=== PATIENT | female | born 1935 | race Caucasian/White ===

== ENCOUNTER 2020-05-29 16:41 | Emergency (ER) | payer MEDICARE, OTHER, SELFPAY ==
[2020-05-29] VITALS (9 sets, daily range): BP systolic 122–235; BP diastolic 53–100; PULSE 54–67; RESP 16; TEMP 36.6–36.8; O2SAT 96–98
--- NOTE | 2020-05-29 18:27 | ED_ITS ---
HPI - General Adult General Chief complaint: General Medical Stated complaint: high bp Time Seen by Provider: 05/29/20 18:27 Source: patient Mode of arrival: ambulatory Limitations: no limitations History of Present Illness HPI narrative: patient comes to emergency room complaining of high blood pressure. Patient states she does not have any symptoms, however when she checked her blood pressure was 190. Patient states approximately 30 years ago she had as subarachnoid hemorrhage, and is concerned about getting a stroke. Patient is on 4 blood pressure medications, states she is compliant. Her blood pressure usually runs in the 140s but over the last week her blood pressure has been uncontrolled for unclear reason. complaint: Hypertension Related Data Previous Rx's Medication Instructions Recorded hydralazine 25 mg PO TID PRN #14 tab 05/29/20 Allergies Allergy/AdvReac Type Severity Reaction Status Date / Time cimetidine [From TAGAMET] Allergy Mild HEADACHES Verified 05/29/20 18:24 lisinopril [LISINOPRIL] Allergy Mild COUGH Verified 05/29/20 18:24 phenytoin [Dilantin] Allergy Unknown rash Verified 11/17/13 00:00 hydrochlorothiazide AdvReac Shortness Verified 05/29/20 18:24 of Breath From DILANTIN Allergy Unknown RASH Uncoded 04/07/20 15:18 Review of Systems Review of Systems: Constitutional : No Weight loss, No Fever, No Chills, No Night Sweats, No Fatigue, No Malaise ENT/Mouth : No Hearing loss, No Ear Pain, No Nasal Congestion, No Sinus Pain, No Hoarseness, No sore throat, No Rhinorrhea, No Swallowing Difficulty Eyes: No Eye Pain, No Swelling, No Redness, No Foreign Body, No Discharge, No Vision Changes Cardiovascular : No Chest Pain, No SOB, No Dyspnea on Exertion, No Orthopnea, No Edema, No Palpitations Respiratory : No Cough, No Sputum, No Wheezing, No Smoke Exposure, No Dyspnea Gastrointestinal : No Nausea, No Vomiting, No Diarrhea, No Constipation, No abdominal Pain, No Hematochezia, No Melena Genitourinary : no irregular bleeding, No Dysuria, No Urinary Frequency, No Hematuria, No Urinary Incontinence, No Urgency, No Flank Pain, No Urinary Flow Changes, No Hesitancy Musculoskeletal : No joint pain, No Myalgias, No Joint Swelling Skin : No Skin Lesions, No rash Neuro : No Weakness, No Numbness, No Paresthesias, No Loss of Consciousness, No Dizziness, No Headache Psych : No Anxiety/Panic, No Depression, No SI/HI/AH/VH, No Social Issues, Heme/Lymph: No Bruising, No Bleeding,No Lymphadenopathy Endocrine : No Polyuria, No Polydipsia, No Temperature Intolerance [facility] Past Medical History Medical History (Updated 05/29/20 @ 21:20 by Karla Tompkins MD) GERD (gastroesophageal reflux disease) High cholesterol HTN (hypertension) Social History Social History Alcohol intake: never Smoking Status: Never smoker Use of substances other than those prescribed or required for medical reasons: No Advance Directives: No Advance Directives Information Provided: Yes Physical Exam Vital Signs: Vital Signs: Last Vital Signs Temp 98 F 05/29/20 19:55 Pulse 58 05/29/20 20:22 Resp 16 05/29/20 19:55 BP 123/53 L 05/29/20 20:22 Pulse Ox 96 05/29/20 19:55 Body Mass Index 30.0 Appearance: Alert. Oriented X3. No acute distress. Eyes: Pupils equal, round and reactive to light. ENT: Pharynx normal. Neck: Normal inspection. Neck supple. No lymph nodes noted. No crepitus CVS: Normal heart rate and rhythm. Pulses normal. Normal S1 and S2 Respiratory: No respiratory distress. Breath sounds normal. No Wheezing. No rales Abdomen: Soft and nontender. No rigidity. No distention. good BS x4 Skin: Skin warm and dry. Normal skin color. Normal skin turgor. Extremities: No lower extremity edema. No lower extremity edema. No Lacerations. No Rash Neuro: Oriented X 3. No motor deficit. No sensory deficit. Moving all extermities. No slurred speech. Course Course Course Narrative: patient is completely asymptomatic, patient's blood pressure is now 135/64. Patient denies headache. Patient has for medications for her blood pressure and is compliant. At this time, we will give her hydralazine p.r.n. which worked well for her here to the patient that this is a temporary measure under she is seen by her primary care physician patient's blood pressure medication will be sent to [facility] treat which is open 24 hours, the patient is aware Medical Decision Making Lab Data Result diagrams: 05/29/20 18:43 05/29/20 18:43 Labs: Lab Results 05/29/20 05/29/20 Range/Units 18:43 18:43 WBC 6.1 (4.8-10.8) X10*3/uL RBC 4.20 (4.20-5.50) X10*6/uL Hgb 12.7 (12.0-16.0) g/dl Hct 38.6 (37-47) % MCV 91.9 (80-98) fL MCH 30.2 (27.0-33.0) pg MCHC 32.9 (31.0-35.0) g/dl RDW 12.5 (11.0-16.0) % Plt Count 275 (160-400) X10*3/uL MPV 9.5 (9.4-12.3) fL Immature Gran % (Auto) 0.5 H (0.0-0.4) % Neut % (Auto) 63.9 (45-73) % Lymph % (Auto) 19.7 L (20-40) % Beadle % (Auto) 10.0 (2-11) % Eos % (Auto) 4.6 H (0-4) % Baso % (Auto) 1.3 (0-2) % Lymph # (Auto) 1.2 (1.2-4.9) X10*3/uL Beadle # (Auto) 0.6 (0.1-1.2) X10*3/uL Eos # (Auto) 0.3 (0.0-0.4) X10*3/uL Baso # (Auto) 0.1 (0.0-0.2) X10*3/uL Abs Immat Gran (auto) 0.03 (0.00-0.03) X10*3/uL Absolute Neuts (auto) 3.9 (2.0-8.3) X10*3/uL Absolute Nucleated RBC 0.000 (0.0-0.012) X10*3/uL Nucleated RBC % (auto) 0.0 (0.0-0.2) /100WBC Sodium 139 (135-145) mmol/L Potassium 3.9 (3.3-5.1) mmol/l Chloride 102 (96-108) mmol/L Carbon Dioxide 27 (22-29) mmol/L Anion Gap 14 (12-20) BUN 19 H (9-16) mg/dL Creatinine 0.80 (0.5-1.4) mg/dL Estim Creat Clear Calc 55.3 Estimated GFR > 60 Random Glucose 90 (60-115) mg/dL Calcium 9.5 (8.4-10.2) mg/dL Discharge Plan Discharge Clinical Impression: Hypertension Qualifiers: Hypertension type: unspecified Qualified Code(s): I10 - Essential (primary) hypertension Patient Disposition: Home, Self-Care Instructions: Hypertension (ED) Additional Instructions: please follow-up with her primary care physician tomorrow Prescriptions: New hydralazine 25 mg tablet 25 mg PO TID PRN (Reason: blood pressure) Qty: 14 RF: 0
--- NOTE | 2020-05-29 18:36 | ECG_ITS ---
Test Reason : HYPERTENSION Blood Pressure : / mmHG Vent. Rate : 055 BPM Atrial Rate : 055 BPM P-R Int : 142 ms QRS Dur : 094 ms QT Int : 440 ms P-R-T Axes : 059 007 035 degrees QTc Int : 420 ms Sinus bradycardia Otherwise normal ECG When compared with ECG of 25-NOV-2002 12:30, No significant change was found Referred By: Karla Tompkins Electronically Signed By:CODI MALDONADO MD
[2020-05-29 18:50] LABS: MANUAL DIFF FLAG NO
[2020-05-29 18:51] LABS: Basophils Absolute Auto 0.1 X10*3/uL (0.0-0.2); Basophils Percent Auto 1.3 % (0-2); Eosinophils Absolute Auto 0.3 X10*3/uL (0.0-0.4); Eosinophils Percent Auto 4.6 % (0-4); Hematocrit 38.6 % (37-47); Hemoglobin 12.7 g/dl (12.0-16.0); Imm Gran Abs Auto 0.03 X10*3/uL (0.00-0.03); Imm Gran Pct Auto 0.5 % (0.0-0.4); Lymphocytes Absolute Auto 1.2 X10*3/uL (1.2-4.9); Lymphocytes Percent Auto 19.7 % (20-40); Mean Corpuscular HGB Conc 32.9 g/dl (31.0-35.0); Mean Corpuscular Hemoglobin 30.2 pg (27.0-33.0); Mean Corpuscular Volume 91.9 fL (80-98); Mean Platelet Volume 9.5 fL (9.4-12.3); Monocytes Absolute Auto 0.6 X10*3/uL (0.1-1.2); Neutrophils Absolute Auto 3.9 X10*3/uL (2.0-8.3); Neutrophils Percent Auto 63.9 % (45-73); Platelet Count 275 X10*3/uL (160-400); Red Cell Distribution Width 12.5 % (11.0-16.0); White Blood Count 6.1 X10*3/uL (4.8-10.8)
--- NOTE | 2020-05-29 18:54 | PC.NURSE ---
Labs obtained by Kelin MAYS, sent by this RN. metal room dental technician at bedside obtaining EKG. Pharm called as Coreg is not stocked in ED pyxis. MD consulted regarding Labetolol due to a heart rate of 50-54 bpm, MD advising this RN to hold med at this time. Continue to monitor.
[2020-05-29] MEDS: hydrALAZINE HCl 50 MG TABLET PO (18:58)
--- NOTE | 2020-05-29 18:59 | PC.NURSE ---
Medicated per EMAR with Hydralazine.
[2020-05-29] MEDS: carvediloL 6.25 MG TABLET PO (19:17)
--- NOTE | 2020-05-29 19:18 | PC.NURSE ---
Pt medicated with Coreg per EMAR. Pt denies VALDEZ, pain/discomfort. Pt reports feeling anxious, states I've been anxious all my life. VSS. Continue to monitor. Pt aware of plan to await lab results. Continue to monitor.
[2020-05-29 19:20] LABS: Anion Gap 14 (12-20); Blood Urea Nitrogen 19 mg/dL (9-16); Calcium 9.5 mg/dL (8.4-10.2); Carbon Dioxide 27 mmol/L (22-29); Chloride 102 mmol/L (96-108); Creatinine Clr Calc Pharmacy 55.3; Estimated Glomerular Filt Rate > 60; Glucose Random 90 mg/dL (60-115); Potassium 3.9 mmol/l (3.3-5.1); Sodium 139 mmol/L (135-145)
--- NOTE | 2020-05-29 19:57 | PC.NURSE ---
Pt resting in bed at this time, denies pain/discomfort. VSS. Continue to monitor.
== END 2020-05-29 21:54 | disposition home or self-care (01) ==
PROVIDERS: Emergency Provider Emergency Medicine; PCP Internal Medicine
DX: I10 Essential (primary) hypertension (principal); Z79.899 Other long term (current) drug therapy
CPT/HCPCS: 36415; 80048; 85025; 93005; 99283; 99284

== ENCOUNTER 2020-06-08 12:38 | Outpatient (REF) | payer MEDICARE, OTHER, SELFPAY ==
--- NOTE | 2020-06-08 13:07 | MM_ITS ---
EXAMINATION: MM SCREENING DIGITAL BREAST TOMOSYNTHESIS, BILATERAL CLINICAL INFORMATION: Screening. Asymptomatic. The lifetime risk of breast cancer based on the Tyrer-Cuzick Model is 2%. COMPARISON: Mammography: 01/29/2019, 01/21/2018 TECHNIQUE: Digital breast tomosynthesis is performed in both the craniocaudal and mediolateral oblique views along with computer-aided detection (CAD). Synthesized 2D images are generated from the tomosynthesis. FINDINGS: There are scattered areas of fibroglandular density (ACR BI-RADS breast composition Category b). Breast tissue composition is denser in the bilateral upper outer quadrants. Parenchymal pattern is similar to prior studies. There is no interval mass or architectural abnormality or abnormal calcifications. The axilla and skin contours are unremarkable. No significant changes. MM/MM tomosynthesis screening BI IMPRESSION: No mammographic evidence of malignancy. ASSESSMENT: BI-RADS 1: Negative RECOMMENDATION: Routine annual mammography screening. This patient's information was entered into a reminder system with a target due date for their next mammogram.
== END 2020-06-08 12:39 | disposition home or self-care (01) ==
LOC: HO.MAMMO 12:38
PROVIDERS: PCP Internal Medicine; Visit Provider Internal Medicine
DX: Z12.31 Encounter for screening mammogram for malignant neoplasm of breast (principal)
CPT/HCPCS: 77063; 77067

== ENCOUNTER 2020-06-14 05:21 | Inpatient (IN) | payer MEDICARE, OTHER, SELFPAY ==
[2020-06-14] VITALS (15 sets, daily range): BP systolic 128–190; BP diastolic 46–90; PULSE 62–103; RESP 13–30; TEMP 36.8–38.4; O2SAT 86–99; BMI 29.9
--- NOTE | 2020-06-14 | CT_ITS ---
EXAMINATION: CT ANGIOGRAM OF THE CHEST WITH AND WITHOUT CONTRAST (CT PULMONARY ANGIOGRAM FOR PE) CLINICAL INFORMATION: Reason for Exam elevated d-dimer, elevated trop-I, hypoxia COMPARISON: Previous chest x-ray from earlier the same day TECHNIQUE: Prior to contrast administration, noncontrast localization images were obtained. Subsequently, multidetector volumetric imaging was performed from the thoracic inlet to below the diaphragms following the administration of 65 mL Omnipaque 350 intravenous contrast. No contrast reaction reported Sagittal, coronal, and MIP oblique sagittal reformatted images were obtained on the CT workstation, uploaded to PACS, and reviewed. This CT examination was performed using dose optimization techniques as appropriate, variously including the following: *Automated exposure control *Adjustment of mA and/or kV according to patient size (this includes techniques or standardized protocols for targeted exams where dose is matched to indication/reason for exam; i.e. extremities or head) *Use of iterative reconstruction technique Total exam dose-length product 660 mGy-cm FINDINGS: QUALITY OF STUDY/CONTRAST BOLUS: Satisfactory. PULMONARY ARTERIES: No central or segmental pulmonary emboli. The pulmonary arteries are prominent, main pulmonary artery measuring 3.2 cm. THORACIC AORTA: No aneurysm or dissection. LUNG: Evaluation of the lungs is limited due to artifact from respiratory motion. There is question of mild increased interstitial markings. There is bilateral lower lobe atelectasis, right greater than left. PLEURA: There is a small right pleural effusion. There is no left pleural effusion. MEDIASTINUM: Normal heart size. No pericardial effusion. There are small mediastinal and hilar lymph nodes. No enlarged lymph nodes are seen.. No evidence of septal bowing or right heart strain. There is a 1 x 2 cm left thyroid nodule. CHEST WALL/AXILLA: No axillary or internal mammary lymphadenopathy. OSSEOUS STRUCTURES: There are degenerative changes of the spine. UPPER ABDOMEN: Unremarkable. No reflux of contrast into the hepatic veins to suggest elevated right heart pressures. CT/CT angio chest PE protocol IMPRESSION: No evidence of pulmonary embolism. Question mild CHF with increased interstitial markings and small right pleural effusion. 1 x 2 cm left thyroid nodule. Follow-up thyroid ultrasound recommended. VTE: negative
--- NOTE | 2020-06-14 05:31 | ECG_ITS ---
Test Reason : SOB Blood Pressure : / mmHG Vent. Rate : 085 BPM Atrial Rate : 085 BPM P-R Int : 132 ms QRS Dur : 082 ms QT Int : 358 ms P-R-T Axes : 058 023 032 degrees QTc Int : 426 ms Normal sinus rhythm with Sinus Arrhythmia Possible Left atrial enlargement Borderline ECG When compared with ECG of 29-MAY-2020 18:51, Vent. rate has increased BY 30 BPM Referred By: Audi Mack Electronically Signed By:OCDI MALDONADO MD
--- NOTE | 2020-06-14 05:31 | XR_ITS ---
EXAMINATION: XR CHEST CLINICAL INFORMATION: Shortness of breath COMPARISON: None TECHNIQUE: Frontal view of the chest was obtained. FINDINGS: Cardiac leads overlie the chest. The lungs are well expanded. Patchy bilateral airspace opacities are present. No pleural effusion or pneumothorax. The cardiomediastinal silhouette is normal in size, with a calcified aorta. XR/XR chest 1V IMPRESSION: Patchy bilateral airspace opacities are noted. Viral pneumonia can have this appearance.
--- NOTE | 2020-06-14 05:40 | ED_ITS ---
HPI - SOB/Dyspnea General Chief Complaint: Dyspnea Stated Complaint: sob Time Seen by Provider: 06/14/20 05:31 Source: patient and EMS History of Present Illness HPI Narrative: 85-year-old female with chief complaint of shortness of breath body aches the past 1-2 days. Denies vomiting however slightly nauseous. States of full body aches including headache. Mild cough with shortness of breath but no phlegm. No abdominal pain no chest pain. Denies sick contacts positive for chills I was present on arrival to the emergency department secondary to respiratory distress MD elicited complaint: shortness of breath Onset (ago): day(s) (2) Severity: severe Related Data Home Medications Medication Instructions Recorded Confirmed carvedilol PO BID 06/14/20 hydralazine 1 tab PO TID 06/14/20 06/14/20 nifedipine 1 tab PO DAILY 06/14/20 06/14/20 olmesartan 1 tab PO DAILY 06/14/20 06/14/20 omeprazole 1 cap PO DAILY 06/14/20 06/14/20 simvastatin 1 tab PO BEDTIME 06/14/20 06/14/20 Allergies Allergy/AdvReac Type Severity Reaction Status Date / Time cimetidine [From TAGAMET] Allergy Mild HEADACHES Verified 05/29/20 18:24 lisinopril [LISINOPRIL] Allergy Mild COUGH Verified 05/29/20 18:24 phenytoin [Dilantin] Allergy Unknown rash Verified 11/17/13 00:00 hydrochlorothiazide AdvReac Shortness Verified 05/29/20 18:24 of Breath From DILANTIN Allergy Unknown RASH Uncoded 04/07/20 15:18 Review of Systems Review of Systems: Constitutional : No Weight loss, No Fever, positive Chills, No Night Sweats, positive Fatigue, positive Malaise ENT/Mouth : No Hearing loss, No Ear Pain, No Nasal Congestion, No Sinus Pain, No Hoarseness, No sore throat, No Rhinorrhea, No Swallowing Difficulty Eyes: No Eye Pain, No Swelling, No Redness, No Foreign Body, No Discharge, No Vision Changes Cardiovascular : No Chest Pain, No SOB, No Dyspnea on Exertion, No Orthopnea, No Edema, No Palpitations Respiratory : Positive Cough, No Sputum, positive Wheezing, No Smoke Exposure, positive Dyspnea Gastrointestinal : No Nausea, No Vomiting, No Diarrhea, No Constipation, No abdominal Pain, No Hematochezia, No Melena Genitourinary : no irregular bleeding, No Dysuria, No Urinary Frequency, No Hem aturia, No Urinary Incontinence, No Urgency, No Flank Pain, No Urinary Flow Changes, No Hesitancy Musculoskeletal : No joint pain, positive Myalgias, No Joint Swelling Skin : No Skin Lesions, No rash Neuro : No Weakness, No Numbness, No Paresthesias, No Loss of Consciousness, No Dizziness, No Headache Psych : No Anxiety/Panic, No Depression, No SI/HI/AH/VH, No Social Issues, Heme/Lymph: No Bruising, No Bleeding,No Lymphadenopathy Endocrine : No Polyuria, No Polydipsia, No Temperature Intolerance [facility] Past Medical History Medical History Carcinoma of colon GERD (gastroesophageal reflux disease) High cholesterol HTN (hypertension) Rheumatic fever Subarachnoid bleed Surgical History H/O hemicolectomy Social History Social History Alcohol intake: never Smoking Status: Never smoker Use of substances other than those prescribed or required for medical reasons: No Advance Directives: No Advance Directives Information Provided: No Physical Exam Vital Signs: Vital Signs: Last Vital Signs Temp 101.1 F H 06/14/20 06:00 Pulse 71 06/14/20 06:30 Resp 26 H 06/14/20 06:30 BP 137/55 L 06/14/20 06:30 Pulse Ox 99 06/14/20 06:30 Body Mass Index 29.9 Vital signs reviewed Appearance: Alert. Oriented X3. Mild respiratory acute distress. Eyes: Pupils equal, round and reactive to light. ENT: Pharynx normal. Neck: Normal inspection. Neck supple. No lymph nodes noted. No crepitus CVS: Normal heart rate and rhythm. Pulses normal. Normal S1 and S2 Respiratory: Mild respiratory distress. Decrease sounds positive bilateral Wheezing. No rales no crackles Abdomen: Soft and nontender. No rigidity. No distention. good BS x4 Skin: Skin warm and dry. Normal skin color. Normal skin turgor. Extremities: No lower extremity edema. Neurovascular intact to all extremities. No Lacerations. No Rash Neuro: Oriented X 3. No motor deficit. No sensory deficit. Moving all extermities. No slurred speech. Course Course Course Narrative: 85-year-old female, with chief complaint of shortness of breath, diagnosed with sepsis bilateral processes on x-ray. Given IV fluids and IV antibiotics with lactic acid and blood cultures. I was present in the room on arrival and continue to re-evaluate the patient secondary to respiratory distress. Patient is given IV steroids albuterol felt much better. COVID negative. Will be admitted I spoke to hospitalist who accepted patient, Dr. Kurtz I spoke with patient in regards to admission who agrees Reevaluation(s) Reevaluation #1: Focused exam done now. IV fluids IV antibiotics improved respirations Time: 06:55 MDM - SOB/Dyspnea MDM Narrative Medical decision making narrative: The 5-year-old diagnosis sepsis bilateral and pneumonia Differential Diagnosis Differential diagnosis: Likely pneumonia (Sepsis, COVID) Medical Records Attestation: I reviewed the patient's medical records. Lab Data Attestation: I reviewed the patient's lab results. Result diagrams: 06/14/20 05:38 06/14/20 05:38 Labs: Lab Results 06/14/20 06/14/20 06/14/20 Range/Units 05:38 05:38 05:38 WBC 12.0 H (4.8-10.8) X10*3/uL RBC 4.01 L (4.20-5.50) X10*6/uL Hgb 12.0 (12.0-16.0) g/dl Hct 37.1 (37-47) % MCV 92.5 (80-98) fL MCH 29.9 (27.0-33.0) pg MCHC 32.3 (31.0-35.0) g/dl RDW 12.4 (11.0-16.0) % Plt Count 202 D (160-400) X10*3/uL MPV 10.1 (9.4-12.3) fL Immature Gran % (Auto) 0.6 H (0.0-0.4) % Neut % (Auto) 86.4 H (45-73) % Lymph % (Auto) 4.3 L (20-40) % Douglas % (Auto) 6.8 (2-11) % Eos % (Auto) 1.6 (0-4) % Baso % (Auto) 0.3 (0-2) % Lymph # (Auto) 0.5 L (1.2-4.9) X10*3/uL Douglas # (Auto) 0.8 (0.1-1.2) X10*3/uL Eos # (Auto) 0.2 (0.0-0.4) X10*3/uL Baso # (Auto) 0.0 (0.0-0.2) X10*3/uL Abs Immat Gran (auto) 0.07 H (0.00-0.03) X10*3/uL Absolute Neuts (auto) 10.3 H (2.0-8.3) X10*3/uL Absolute Nucleated RBC 0.000 (0.0-0.012) X10*3/uL Nucleated RBC % (auto) 0.0 (0.0-0.2) /100WBC Smear Tech's Comments VERIFIED PT 12.8 (10.8-13.0) SEC INR 1.1 (0.9-1.1) APTT 33.8 (24.1-38.0) SEC Sodium 137 (135-145) mmol/L Potassium 3.7 (3.3-5.1) mmol/l Chloride 102 (96-108) mmol/L Carbon Dioxide 24 (22-29) mmol/L Anion Gap 15 (12-20) BUN 24 H (9-16) mg/dL Creatinine 0.94 (0.5-1.4) mg/dL Estim Creat Clear Calc 46.1 Estimated GFR 57 Random Glucose 143 H D (60-115) mg/dL Lactic Acid (0.5-2.0) mmol/L Calcium 8.6 D (8.4-10.2) mg/dL Total Bilirubin 1.0 (0.0-1.0) mg/dL Direct Bilirubin 0.9 H (0.0-0.5) mg/dL AST 108 H (5-31) U/L ALT 181 H (0-31) U/L Alkaline Phosphatase 163 H (39-117) U/L Troponin I High Sens (<3.5-17.0) ng/L B-Natriuretic Peptide (<100) pg/mL Total Protein 7.2 (6.5-8.0) g/dL Albumin 3.9 (3.5-5.0) g/dL Lipase 12 (8-78) U/L Coronavirus (PCR) (Negative) Influenza Type A (PCR) (Negative) Influenza Type B (PCR) (Negative) RSV RNA Qual (PCR) (Negative) 06/14/20 06/14/20 06/14/20 Range/Units 05:38 05:38 05:38 WBC (4.8-10.8) X10*3/uL RBC (4.20-5.50) X10*6/uL Hgb (12.0-16.0) g/dl Hct (37-47) % MCV (80-98) fL MCH (27.0-33.0) pg MCHC (31.0-35.0) g/dl RDW (11.0-16.0) % Plt Count (160-400) X10*3/uL MPV (9.4-12.3) fL Immature Gran % (Auto) (0.0-0.4) % Neut % (Auto) (45-73) % Lymph % (Auto) (20-40) % Douglas % (Auto) (2-11) % Eos % (Auto) (0-4) % Baso % (Auto) (0-2) % Lymph # (Auto) (1.2-4.9) X10*3/uL Douglas # (Auto) (0.1-1.2) X10*3/uL Eos # (Auto) (0.0-0.4) X10*3/uL Baso # (Auto) (0.0-0.2) X10*3/uL Abs Immat Gran (auto) (0.00-0.03) X10*3/uL Absolute Neuts (auto) (2.0-8.3) X10*3/uL Absolute Nucleated RBC (0.0-0.012) X10*3/uL Nucleated RBC % (auto) (0.0-0.2) /100WBC Smear Tech's Comments PT (10.8-13.0) SEC INR (0.9-1.1) APTT (24.1-38.0) SEC Sodium (135-145) mmol/L Potassium (3.3-5.1) mmol/l Chloride (96-108) mmol/L Carbon Dioxide (22-29) mmol/L Anion Gap (12-20) BUN (9-16) mg/dL Creatinine (0.5-1.4) mg/dL Estim Creat Clear Calc Estimated GFR Random Glucose (60-115) mg/dL Lactic Acid 1.1 (0.5-2.0) mmol/L Calcium (8.4-10.2) mg/dL Total Bilirubin (0.0-1.0) mg/dL Direct Bilirubin (0.0-0.5) mg/dL AST (5-31) U/L ALT (0-31) U/L Alkaline Phosphatase (39-117) U/L Troponin I High Sens 49.8 H (<3.5-17.0) ng/L B-Natriuretic Peptide 272 H (<100) pg/mL Total Protein (6.5-8.0) g/dL Albumin (3.5-5.0) g/dL Lipase (8-78) U/L Coronavirus (PCR) NEGATIVE (Negative) Influenza Type A (PCR) NEGATIVE (Negative) Influenza Type B (PCR) NEGATIVE (Negative) RSV RNA Qual (PCR) NEGATIVE (Negative) ECG Data Attestation: I personally reviewed and interpreted this ECG as follows: Interpretation: 85 beats per minute. Normal sinus rhythm. Normal axis. No ST- T changes Critical Care Time Critical Care Time Critical Care Time: Yes Total Critical Care Time: 35 Attestation: I attest my time caring for this patient Discharge Plan Discharge Clinical Impression: Diffuse wheezing Fever Qualifiers: Fever type: unspecified Qualified Code(s): R50.9 - Fever, unspecified Sepsis Qualifiers: Sepsis type: sepsis due to unspecified organism Sepsis acute organ dysfunction status: unspecified Qualified Code(s): A41.9 - Sepsis, unspecified organism Pneumonia Qualifiers: Pneumonia type: due to unspecified organism Laterality: bilateral Lung location: unspecified part of lung Qualified Code(s): J18.9 - Pneumonia, unspecified organism Patient Disposition: Admitted As Inpatient
[2020-06-14] MEDS: methylPREDNISolone Sod Succ/PF 125 MG/2 ML VIAL 60 MG IVPUSH (05:46)
[2020-06-14] MEDS: levoFLOXacin/D5W 750 MG/150 ML PIGGYBACK 100 MG IV (05:47)
[2020-06-14] MEDS: Acetaminophen 325 MG TABLET 650 MG PO (05:47)
[2020-06-14 05:49] LABS: Basophils Percent Auto 0.3 % (0-2); Eosinophils Absolute Auto 0.2 X10*3/uL (0.0-0.4); Eosinophils Percent Auto 1.6 % (0-4); Hematocrit 37.1 % (37-47); Imm Gran Abs Auto 0.07 X10*3/uL (0.00-0.03); Imm Gran Pct Auto 0.6 % (0.0-0.4); Lymphocytes Absolute Auto 0.5 X10*3/uL (1.2-4.9); Lymphocytes Percent Auto 4.3 % (20-40); MANUAL DIFF FLAG SCAN; Mean Corpuscular HGB Conc 32.3 g/dl (31.0-35.0); Mean Corpuscular Hemoglobin 29.9 pg (27.0-33.0); Mean Corpuscular Volume 92.5 fL (80-98); Mean Platelet Volume 10.1 fL (9.4-12.3); Monocytes Absolute Auto 0.8 X10*3/uL (0.1-1.2); Monocytes Percent Auto 6.8 % (2-11); Neutrophils Absolute Auto 10.3 X10*3/uL (2.0-8.3); Neutrophils Percent Auto 86.4 % (45-73); Platelet Count 202 X10*3/uL (160-400); Red Blood Count 4.01 X10*6/uL (4.20-5.50); Red Cell Distribution Width 12.4 % (11.0-16.0); SCAN SMEAR FLAG 1
[2020-06-14 05:56] LABS: INTERNATIONAL NORM RATIO 1.1 (0.9-1.1); Prothrombin Time 12.8 SEC (10.8-13.0)
[2020-06-14] MEDS: Albuterol Sulfate (0.083%) 2.5 MG/3 ML VIAL.NEB 5 MG INHALE (05:57)
[2020-06-14 05:58] LABS: Partial Thromboplastin Time 33.8 SEC (24.1-38.0)
[2020-06-14 06:06] LABS: SLIDE REVIEW VERIFIED
[2020-06-14 06:13] LABS: Lactic Acid 1.1 mmol/L (0.5-2.0)
[2020-06-14 06:23] LABS: Alanine Aminotransferase 181 U/L (0-31); Albumin Level 3.9 g/dL (3.5-5.0); Alkaline Phosphatase 163 U/L (39-117); Anion Gap 15 (12-20); Aspartate Amino Transferase 108 U/L (5-31); Bilirubin Direct 0.9 mg/dL (0.0-0.5); Blood Urea Nitrogen 24 mg/dL (9-16); Calcium 8.6 mg/dL (8.4-10.2); Carbon Dioxide 24 mmol/L (22-29); Chloride 102 mmol/L (96-108); Creatinine Clr Calc Pharmacy 46.1; Estimated Glomerular Filt Rate 57; Glucose Random 143 mg/dL (60-115); Lipase 12 U/L (8-78); Potassium 3.7 mmol/l (3.3-5.1); Sodium 137 mmol/L (135-145); Total Protein 7.2 g/dL (6.5-8.0)
[2020-06-14 06:24] LABS: B Type Natriuretic Peptide 272 pg/mL (<100); Troponin-I High Sensitivity 49.8 ng/L (<3.5-17.0)
[2020-06-14 06:33] LABS: Influenza A PCR NEGATIVE (Negative); Influenza B PCR NEGATIVE (Negative); Resp Syncy Virus RNA Qual PCR NEGATIVE (Negative); SARS COV2 PCR INHOUSE NEGATIVE (Negative)
--- NOTE | 2020-06-14 07:24 | PC.NURSE ---
Report received from Nupur MAYS. Patient resting comfortably on stretcher. Alert and oriented. Reports significant improvement in breathing and over all feeling better. Patient remains on 4L O2 nasal cannula with O2 sat in high 90s. Respirations regular and even. Skin PWD. VSS. Antibiotics finished infusing. Patient aware of plan of care for admission. Awaiting admission orders.
--- NOTE | 2020-06-14 07:35 | PC.NURSE ---
Patient's son called for update. Updated on plan for admission. Can be reached at [phone].
[2020-06-14 08:35] LABS: D Dimer 1814 NG/ML
[2020-06-14 08:36] LABS: Adenovirus PCR Not Detected (Not Detect.); Bordetella parapertussis PCR Not Detected (Not Detect.); Bordetella pertussis PCR Not Detected (Not Detect.); Chlamydia pneumoniae PCR Not Detected (Not Detect.); Coronavirus 229E PCR Not Detected (Not Detect.); Coronavirus HKU1 PCR Not Detected (Not Detect.); Coronavirus NL63 PCR Not Detected (Not Detect.); Coronavirus OC43 PCR Not Detected (Not Detect.); Human metapneumovirus PCR Not Detected (Not Detect.); Influenza A PCR Not Detected (Not Detect.); Influenza B PCR Not Detected (Not Detect.); Mycoplasma pneumoniae PCR Not Detected (Not Detect.); Parainfluenza 1 PCR Not Detected (Not Detect.); Parainfluenza 2 PCR Not Detected (Not Detect.); Parainfluenza 3 PCR Not Detected (Not Detect.); Parainfluenza 4 PCR Not Detected (Not Detect.); RSV PCR Not Detected (Not Detect.); Rhino/Enterovirus PCR Not Detected (Not Detect.); SARS-CoV-2 PCR Not Detected (Not Detect.)
[2020-06-14 08:55] LABS: Lactate Dehydrogenase 309 U/L (122-220)
--- NOTE | 2020-06-14 09:29 | P.HPHOSP_ITS ---
History of Present Illness Date of Service: 06/14/20 Chief Complaint: shortness of breath This is a 85-year-old female with a past medical history of hypertension, hyperlipidemia, colon cancer status post resection in 2002 who presents to the hospital with complaints of progressive shortness of breath which he noticed for the last 24 hours. She reports that 2 days prior she started noticing generalized aches and pains. She reports that she measured her temperature with a temporal/forehead thermometer which showed that she was afebrile but she did report feeling feverish. She denies any cough. She denies rhinorrhea, sore throat, ear aches. She denies any known sick contacts, particularly does with COVID-19. She reports that her shortness of breath progressed to the point where she became tachypneic and so she presented to the emergency room. In the emergency room, she was noted to be tachypneic, tachycardic and febrile up to 101. her chest x-ray showed patchy bilateral airspace opacities. She was given albuterol updrafts, Solu-Medrol, Tylenol, fluid bolus and Levaquin. Review of Systems Review of Systems: General - subjective fevers, no chills HEENT -denies blurred vision, denies headache, denies sore throat Cardiovascular - denies chest pain or palpitations, denies edema Respiratory - +SOB, denies cough Gastrointestinal - denies abdominal pain, nausea, vomiting, diarrhea - denies flank pain, denies dysuria, denies frequency or urgency Musculoskeletal - generalized aches and pains Neurological - denies any focal weakness or numbness Skin, denies any bruising or redness Psychiatric - denies any suicidal ideation, hallucinations, homicidal ideation Endocrinology - denies intolerance to hot / cold temperatures [facility] Medical History Carcinoma of colon GERD (gastroesophageal reflux disease) High cholesterol HTN (hypertension) Rheumatic fever Subarachnoid bleed Family History (Updated 06/14/20 @ 09:37 by Tad Sands MD) Other Colon cancer Surgical History H/O hemicolectomy Social History (Updated 06/14/20 @ 09:37 by Tad Sands MD) Alcohol intake: never Smoking Status: Former smoker Use of substances other than those prescribed or required for medical reasons: No Advance Directives: No Advance Directives Information Provided: No Meds Allergies Allergy/AdvReac Type Severity Reaction Status Date / Time cimetidine [From TAGAMET] Allergy Mild HEADACHES Verified 05/29/20 18:24 lisinopril [LISINOPRIL] Allergy Mild COUGH Verified 05/29/20 18:24 phenytoin [Dilantin] Allergy Unknown rash Verified 11/17/13 00:00 hydrochlorothiazide AdvReac Shortness Verified 05/29/20 18:24 of Breath From DILANTIN Allergy Unknown RASH Uncoded 04/07/20 15:18 Home Medications Medication Instructions Recorded Confirmed Type ascorbic acid (vitamin C) 500 mg PO BID 06/14/20 06/14/20 History carvedilol 6.25 mg PO BID 06/14/20 06/14/20 History cholecalciferol (vitamin D3) 50 mcg PO DAILY 06/14/20 06/14/20 History docusate sodium [Colace] 100 mg PO BID 06/14/20 06/14/20 History ferrous sulfate 325 mg PO DAILY 06/14/20 06/14/20 History hydralazine 25 mg PO TID 06/14/20 06/14/20 History multivitamin 1 tab PO DAILY 06/14/20 06/14/20 History nifedipine 60 mg PO DAILY 06/14/20 06/14/20 History olmesartan 40 mg PO DAILY 06/14/20 06/14/20 History omeprazole 40 mg PO DAILY@0630 06/14/20 06/14/20 History simvastatin 40 mg PO BEDTIME 06/14/20 06/14/20 History Physical Exam Vital Signs and Narrative: Vital Signs: Last Vital Signs Temp 99.0 F 06/14/20 07:52 Pulse 62 06/14/20 07:52 Resp 18 06/14/20 07:52 BP 131/46 L 06/14/20 07:52 Pulse Ox 98 06/14/20 07:52 Body Mass Index 29.9 Constitutional - Awake and Alert, No apparent distress Eyes - PERRLA, EOMI Cardiovascular - S1S2, RRR, No edema Respiratory - diminished lung sounds with mild scattered rales, no rhonchi, no wheezing, no respiratory distress Gastrointestinal - NT / ND; +BS; No rebound or guarding - No CVA tenderness Extremities - minimal LE edema Musculoskeletal - Normal inspection, normal ROM Skin - Warm/Dry Neurological - Alert & oriented x3, No focal deficit Psychological - Appropriate affect Results Labs CBC and Chem 7: 06/14/20 05:38 06/14/20 05:38 Labs: Laboratory Results - last 24 hr 06/14/20 06/14/20 06/14/20 05:38 05:38 05:38 MCV 92.5 MCH 29.9 MCHC 32.3 RDW 12.4 Plt Count 202 D MPV 10.1 Immature Gran % (Auto) 0.6 H Neut % (Auto) 86.4 H Lymph % (Auto) 4.3 L [place] % (Auto) 6.8 Eos % (Auto) 1.6 Baso % (Auto) 0.3 Lymph # (Auto) 0.5 L [place] # (Auto) 0.8 Eos # (Auto) 0.2 Baso # (Auto) 0.0 Abs Immat Gran (auto) 0.07 H Absolute Neuts (auto) 10.3 H Absolute Nucleated RBC 0.000 Nucleated RBC % (auto) 0.0 Smear Tech's Comments VERIFIED PT 12.8 INR 1.1 APTT 33.8 D-Dimer 1814 Anion Gap 15 Estim Creat Clear Calc 46.1 Estimated GFR 57 Random Glucose 143 H D Lactic Acid Calcium 8.6 D Total Bilirubin 1.0 Direct Bilirubin 0.9 H AST 108 H ALT 181 H Alkaline Phosphatase 163 H Lactate Dehydrogenase 309 H Troponin I High Sens C-Reactive Protein 9.90 H B-Natriuretic Peptide Total Protein 7.2 Albumin 3.9 Lipase 12 Coronavirus (PCR) Influenza Type A (PCR) Influenza Type B (PCR) RSV RNA Qual (PCR) 06/14/20 06/14/20 06/14/20 05:38 05:38 05:38 MCV MCH MCHC RDW Plt Count MPV Immature Gran % (Auto) Neut % (Auto) Lymph % (Auto) [place] % (Auto) Eos % (Auto) Baso % (Auto) Lymph # (Auto) [place] # (Auto) Eos # (Auto) Baso # (Auto) Abs Immat Gran (auto) Absolute Neuts (auto) Absolute Nucleated RBC Nucleated RBC % (auto) Smear Tech's Comments PT INR APTT D-Dimer Anion Gap Estim Creat Clear Calc Estimated GFR Random Glucose Lactic Acid 1.1 Calcium Total Bilirubin Direct Bilirubin AST ALT Alkaline Phosphatase Lactate Dehydrogenase Troponin I High Sens 49.8 H C-Reactive Protein B-Natriuretic Peptide 272 H Total Protein Albumin Lipase Coronavirus (PCR) NEGATIVE Influenza Type A (PCR) NEGATIVE Influenza Type B (PCR) NEGATIVE RSV RNA Qual (PCR) NEGATIVE Imaging Radiologist's Impressions: Impressions Chest X-Ray 06/14/20 05:31 IMPRESSION: Patchy bilateral airspace opacities are noted. Viral pneumonia can have this appearance. Assessment and Plan (1) Sepsis: Qualifiers: Sepsis acute organ dysfunction status: unspecified Sepsis type: sepsis due to unspecified organism Qualified Code(s): A41.9 - Sepsis, unspecified organism Status: Acute This is a 85 yo F with a PMH of HTN, HLD, GERD, Colon Ca - s/p resection, prior subarachnoid bleed who presents to the hospital with complaints of progressive shortness of breath, subjective fevers, myalgias. 1. Sepsis secondary to pneumonia - viral vs bacterial received fluid bolus in the ED, covered with levaquin. CXR showing more of a viral picture, but her respiratory pathogen panel + flu/rsv/covid are negative . Will place in respiratory precautions for the time being and get further evaluation from ID. Will start doxy for now until evaluated by ID send for legionella continue supplemental O2 Trend inflammatory biomakers -- elevated at this time 2. Elevated HS trop-I, elevated BNP increased from 49.8 to 89.7 no chest pain, EKG without any acute ischemic findings likely due to her on going sepsis - will ask for cardiology input hold off on echo unless advised by cardiolog 3. Elevated d-dimer given her hypoxia and trop-I will check CTA to rule out PE 4. HTN on multiple meds continue her home meds 5. HLD statin 6. GERD PPI DVT pptx, lovenox Full Code Nominates her Adrien as HCP
[2020-06-14 09:47] LABS: Troponin-I High Sensitivity 89.7 ng/L (<3.5-17.0)
[2020-06-14 09:47] LABS: Ferritin 389 ng/mL (10-250)
--- NOTE | 2020-06-14 10:28 | PC.NURSE ---
[facility] called to give nurse to nurse.
--- NOTE | 2020-06-14 10:28 | PC.NURSE ---
Patient remains comfortable resting on stretcher. Continues to feel improved. Respirations remain regular and even. Skin PWD. VSS. Dr. Carpenter at bedside to evaluate patient. Awaiting bed assignment at this time.
--- NOTE | 2020-06-14 12:00 | PC.NURSE ---
Report given to [facility] RN at this time. Awaiting transport.
[2020-06-14] MEDS: iohexoL 350 MG/ML 100 ML INFUS..BTL 92 ML IV (12:32)
[2020-06-14] MEDS: Enoxaparin Sodium 40 MG/0.4 ML SYRINGE SUBCUT (12:38)
[2020-06-14] MEDS: Doxycycline Hyclate 100 MG in 0.9 % Sodium Chloride 250 ML 166.67 MG IV (12:38)
--- NOTE | 2020-06-14 15:12 | P.CNID_ITS ---
History of Present Illness Data of Consult Service Date: 06/14/20 Requesting physician: Tad Sands Primary Care Provider: Unknown Physician HPI Reason for consult: shortness of breath She presents to hospital with one day shortness of breath and fever to 101 She has no known COVID exposure She has no productive sputum Review of Systems 2 Cardiovascular: Cardiovascular: Reports dyspnea Respiratory: Respiratory: Reports dyspnea PMFSH Past Medical History Medical History Carcinoma of colon GERD (gastroesophageal reflux disease) High cholesterol HTN (hypertension) Rheumatic fever Subarachnoid bleed Family History Family History Other Colon cancer Surgical History Surgical History H/O hemicolectomy Social History Social History (Updated 06/14/20 @ 09:37 by Tad Sands MD) Household Members: Significant Other Housing: House Do you presently have visiting nurse or other home services: No Alcohol intake: never Smoking Status: Former smoker Use of substances other than those prescribed or required for medical reasons: No Have you been hit, kicked, punched, or otherwise hurt by someone within the past year? If so, by whom?: No Do you feel safe in your current relationship?: No Is there a partner from a previous relationship who is making you feel unsafe now?: No Are you made to feel afraid or neglected: No Advance Directives: No Advance Directives Information Provided: No Advance Directives on File: No Do you have thoughts of harming others: None Recently lost weight without trying: No Meds Allergies Allergy/AdvReac Type Severity Reaction Status Date / Time cimetidine [From TAGAMET] Allergy Mild HEADACHES Verified 05/29/20 18:24 lisinopril [LISINOPRIL] Allergy Mild COUGH Verified 05/29/20 18:24 phenytoin [Dilantin] Allergy Unknown rash Verified 11/17/13 00:00 hydrochlorothiazide AdvReac Shortness Verified 05/29/20 18:24 of Breath From DILANTIN Allergy Unknown RASH Uncoded 04/07/20 15:18 Home Medications Medication Instructions Recorded Confirmed Type ascorbic acid (vitamin C) 500 mg PO BID 06/14/20 06/14/20 History carvedilol 6.25 mg PO BID 06/14/20 06/14/20 History cholecalciferol (vitamin D3) 50 mcg PO DAILY 06/14/20 06/14/20 History docusate sodium [Colace] 100 mg PO BID 06/14/20 06/14/20 History ferrous sulfate 325 mg PO DAILY 06/14/20 06/14/20 History hydralazine 25 mg PO TID 06/14/20 06/14/20 History multivitamin 1 tab PO DAILY 06/14/20 06/14/20 History nifedipine 60 mg PO DAILY 06/14/20 06/14/20 History olmesartan 40 mg PO DAILY 06/14/20 06/14/20 History omeprazole 40 mg PO DAILY@0630 06/14/20 06/14/20 History simvastatin 40 mg PO BEDTIME 06/14/20 06/14/20 History Physical Exam Vital Signs: Vital Signs: Last Vital Signs Temp 98.8 F 06/14/20 12:34 Pulse 78 06/14/20 12:34 Resp 20 06/14/20 12:34 BP 156/70 H 06/14/20 12:34 Pulse Ox 97 06/14/20 12:34 Body Mass Index 29.9 Const: General: cooperative HENMT: Head: Yes normal to inspection Mouth: Normal oral and palatal mucosa present Resp: Effort & Inspection: able to speak in complete sentences Cardio: Rate: regular rate Rhythm: regular rhythm Skin: General skin exam: no rashes or lesions noted Neuro: General: moves all extremities Assessment and Plan (1) Pneumonia: Qualifiers: Laterality: bilateral Lung location: unspecified part of lung Pneumonia type: due to unspecified organism Qualified Code(s): J18.9 - Pneumonia, unspecified organism Problem details: There is concern over atypical pneumonia No evidence of COVID at this time Status: Acute (2) Sepsis: Qualifiers: Sepsis acute organ dysfunction status: unspecified Sepsis type: sepsis due to unspecified organism Qualified Code(s): A41.9 - Sepsis, unspecified organism Problem details: Check blood cultures Continue Doxycycline Can do standard rather than airborne precautions Status: Acute as above Results Labs CBC & Chem 7: 06/14/20 05:38 06/14/20 05:38 Labs: Short CBC 06/14/20 Range/Units 05:38 WBC 12.0 H (4.8-10.8) X10*3/uL Hgb 12.0 (12.0-16.0) g/dl Hct 37.1 (37-47) % Plt Count 202 D (160-400) X10*3/uL BMP 06/14/20 05:38 Sodium 137 Potassium 3.7 Chloride 102 Carbon Dioxide 24 BUN 24 H Creatinine 0.94 Calcium 8.6 D Liver Function 06/14/20 Range/Units 05:38 Total Bilirubin 1.0 (0.0-1.0) mg/dL Direct Bilirubin 0.9 H (0.0-0.5) mg/dL AST 108 H (5-31) U/L ALT 181 H (0-31) U/L Alkaline Phosphatase 163 H (39-117) U/L Albumin 3.9 (3.5-5.0) g/dL
[2020-06-14] MEDS: hydrALAZINE HCl 25 MG TABLET PO ×2 (15:41→20:03)
[2020-06-14] MEDS: 0.9 % Sodium Chloride Flush 3 ML SYRINGE IVFLUSH (15:42)
[2020-06-14] MEDS: Albuterol/Iprat 2.5/0.5MG 3 ML AMPUL.NEB INHALE (17:46)
[2020-06-14] MEDS: Furosemide 20 MG/2 ML VIAL IVPUSH (17:56)
[2020-06-14] MEDS: carvediloL 6.25 MG TABLET PO (20:03)
[2020-06-14] MEDS: Ascorbic Acid 500 MG TABLET PO (20:03)
[2020-06-14] MEDS: Docusate Sodium 100 MG CAPSULE PO (20:03)
--- NOTE | 2020-06-14 21:25 | PC.NURSE ---
1999; Patient ambulated to bathroom and back to bed 1 assist, became more short of breath, nauseous and vomited once. Vital signs stable. Oxygen sat 94% on 2 L via nasal cannula. Patient reported nausea resolved on its own within a few minutes. Patient also reported feeling chills from previous breathing treatment. Dr. Sanchez made aware. 2039; Patient resting, eyes closed, even respirations.
[2020-06-15] VITALS (13 sets, daily range): BP systolic 106–166; BP diastolic 38–75; PULSE 75–81; RESP 18–20; TEMP 36.6–37.5; O2SAT 94–98
[2020-06-15] MEDS: Doxycycline Hyclate 100 MG in 0.9 % Sodium Chloride 250 ML 166.67 MG IV ×2 (00:53→13:22)
[2020-06-15] MEDS: 0.9 % Sodium Chloride Flush 3 ML SYRINGE IVFLUSH ×4 (00:54→20:27)
[2020-06-15] MEDS: Omeprazole 40 MG CAPSULE.DR PO (05:56)
[2020-06-15 06:18] LABS: Basophils Percent Auto 0.2 % (0-2); Eosinophils Absolute Auto 0.1 X10*3/uL (0.0-0.4); Eosinophils Percent Auto 0.9 % (0-4); Hematocrit 28.8 % (37-47); Hemoglobin 9.3 g/dl (12.0-16.0); Imm Gran Abs Auto 0.06 X10*3/uL (0.00-0.03); Imm Gran Pct Auto 0.6 % (0.0-0.4); Lymphocytes Absolute Auto 0.5 X10*3/uL (1.2-4.9); Lymphocytes Percent Auto 5.4 % (20-40); MANUAL DIFF FLAG SCAN; Mean Corpuscular HGB Conc 32.3 g/dl (31.0-35.0); Mean Corpuscular Hemoglobin 29.7 pg (27.0-33.0); Mean Platelet Volume 10.5 fL (9.4-12.3); Monocytes Absolute Auto 0.9 X10*3/uL (0.1-1.2); Monocytes Percent Auto 9.3 % (2-11); Neutrophils Absolute Auto 8.2 X10*3/uL (2.0-8.3); Neutrophils Percent Auto 83.6 % (45-73); Platelet Count 151 X10*3/uL (160-400); Red Blood Count 3.13 X10*6/uL (4.20-5.50); Red Cell Distribution Width 12.8 % (11.0-16.0); SCAN SMEAR FLAG 1; White Blood Count 9.8 X10*3/uL (4.8-10.8)
[2020-06-15 06:27] LABS: D Dimer 692 NG/ML
[2020-06-15 07:03] LABS: Alanine Aminotransferase 111 U/L (0-31); Albumin Level 3.1 g/dL (3.5-5.0); Alkaline Phosphatase 121 U/L (39-117); Anion Gap 11 (12-20); Aspartate Amino Transferase 45 U/L (5-31); Bilirubin Direct 0.4 mg/dL (0.0-0.5); Bilirubin Total 0.5 mg/dL (0.0-1.0); Blood Urea Nitrogen 26 mg/dL (9-16); Calcium 7.7 mg/dL (8.4-10.2); Carbon Dioxide 24 mmol/L (22-29); Chloride 105 mmol/L (96-108); Creatinine Clr Calc Pharmacy 54.1; Estimated Glomerular Filt Rate > 60; Glucose Random 113 mg/dL (60-115); Potassium 3.3 mmol/l (3.3-5.1); Sodium 137 mmol/L (135-145); Total Protein 5.7 g/dL (6.5-8.0)
[2020-06-15 07:09] LABS: SLIDE REVIEW VERIFIED
[2020-06-15 07:21] LABS: Procalcitonin 1.17 ng/mL
[2020-06-15] MEDS: Albuterol/Iprat 2.5/0.5MG 3 ML AMPUL.NEB INHALE ×3 (08:32→22:21)
--- NOTE | 2020-06-15 09:47 | MHC.CM.PN ---
Addendum entered by Lea Keller 06/15/20 09:55: PCP IS DR JOYCE LIVE. Original Note: IMM 06/15/2020 FEMALE DX SEPSIS PNA LIVES W SPOUSE. She is independent no AD. No HCP on file, a copy has been requested. DP home no services, spouse will provide transportation at [place]. She is willing to accept VNA services if required. CM will follow.
[2020-06-15] MEDS: Cholecalciferol (Vitamin D3) 25 MCG TABLET 50 MCG PO (10:01)
[2020-06-15] MEDS: NIFEdipine ER 60 MG TAB.ER.24 PO (10:01)
[2020-06-15] MEDS: Multivitamin TABLET 1 TAB PO (10:02)
[2020-06-15] MEDS: Ascorbic Acid 500 MG TABLET PO ×2 (10:03→20:27)
[2020-06-15] MEDS: carvediloL 6.25 MG TABLET PO ×2 (10:03→20:27)
[2020-06-15] MEDS: hydrALAZINE HCl 25 MG TABLET PO ×3 (10:03→20:26)
[2020-06-15] MEDS: Docusate Sodium 100 MG CAPSULE PO ×2 (10:04→20:26)
[2020-06-15] MEDS: Furosemide 40 MG/4 ML VIAL IVPUSH (10:04)
--- NOTE | 2020-06-15 11:50 | P.PNIM_ITS ---
Subjective Subjective Date of Service: 06/15/20 Interval History: sob Cardiovascular Cardiovascular: Reports no additional cardiovascular complaints Gastrointestinal Gastrointestinal: Reports no additional gastrointestinal complaints Physical Exam Vital Signs: Vital Signs: Last Vital Signs Temp 98.5 F 06/15/20 11:10 Pulse 81 06/15/20 11:10 Resp 20 06/15/20 11:10 BP 166/75 H 06/15/20 11:10 Pulse Ox 95 06/15/20 11:10 Body Mass Index 29.9 General: AO X 3, no acute distress Resp: rales CVS: S1,S2,RRR, +jvd GI: soft, non tender, non distended Neuro: motor grossly intact Psych: appropriate affect Objective Data Current Medications Generic Name Dose Route Start Last Admin Trade Name Freq PRN Reason Stop Dose Admin Acetaminophen 650 mg 06/14/20 12:18 Acetaminophen 325 Mg Tablet PO Q6H PRN Pain, Mild (Pain Scale 1-3) Albuterol/Ipratropium 3 ml 06/14/20 20:00 06/15/20 08:32 Albuterol/Iprat 2.5/0.5mg 3 Ml Ampul.Neb INHALE 3 ml RQ6H WHILE AWAKE MICAELA Administration Ascorbic Acid 500 mg 06/14/20 21:00 06/15/20 10:03 Ascorbic Acid 500 Mg Tablet PO 500 mg BID MICAELA Administration Carvedilol 6.25 mg 06/14/20 21:00 06/15/20 10:03 Carvedilol 6.25 Mg Tablet PO 6.25 mg BID MICAELA Administration Protocol Docusate Sodium 100 mg 06/14/20 21:00 06/15/20 10:04 Docusate Sodium 100 Mg Capsule PO 100 mg BID MICAELA Administration Enoxaparin Sodium 40 mg 06/14/20 13:00 06/14/20 12:38 Enoxaparin Sodium 40 Mg/0.4 Ml Syringe SUBCUT 40 mg Q24H MICAELA Administration Hydralazine HCl 25 mg 06/14/20 15:00 06/15/20 10:03 Hydralazine Hcl 25 Mg Tablet PO 25 mg TID MICAELA Administration Protocol Doxycycline Hyclate 100 mg/ 250 mls @ 166.67 mls/hr 06/14/20 13:00 06/15/20 02:23 Sodium Chloride IV Infused Q12H MICAELA Infusion Multivitamins/Vitamin C 1 tab 06/15/20 09:00 06/15/20 10:02 Multivitamin Tablet PO 1 tab DAILY MICAELA Administration Nifedipine 60 mg 06/15/20 09:00 06/15/20 10:01 Nifedipine Er 60 Mg Tab.Er.24 PO 60 mg DAILY MICAELA Administration Protocol Omeprazole 40 mg 06/15/20 06:30 06/15/20 05:56 Omeprazole 40 Mg Capsule.Dr PO 40 mg DAILY@0630 MICAELA Administration Ondansetron HCl 4 mg 06/14/20 12:18 Ondansetron Hcl 4 Mg/2 Ml Vial IVPUSH Q8H PRN Nausea and Vomiting Pharmacy Consult 1 each 06/14/20 08:13 Consult Rx Perform Med Rec MISCELLANE ONCE PRN Consult order Sodium Chloride 3 ml 06/14/20 16:00 06/15/20 10:04 0.9 % Sodium Chloride Flush 3 Ml Syringe IVFLUSH 3 ml QSHIFT MICAELA Administration Vitamin D 50 mcg 06/15/20 09:00 06/15/20 10:01 Cholecalciferol (Vitamin D3) 25 Mcg Tablet PO 50 mcg DAILY MICAELA Administration Labs CBC & Chem 7: 06/15/20 05:32 06/15/20 05:32 Microbiology Microbiology Results: Microbiology 06/14/20 05:38 Blood - Venous Blood Culture - Preliminary No growth after 24 hours. 06/14/20 05:42 Blood - Venous Blood Culture - Preliminary No growth after 24 hours. Assessment and Plan (1) Pneumonia: Problem details: There is concern over atypical pneumonia No evidence of COVID at this time Status: Acute (2) Sepsis: Problem details: Check blood cultures Continue Doxycycline Can do standard rather than airborne precautions Status: Acute Assessment and Plan: 85 yo F with a PMH of HTN, HLD, GERD, Colon Ca - s/p resection, prior dutta barachnoid bleed who presented to the hospital with complaints of progressive shortness of breath, subjective fevers, myalgias. Sepsis secondary to pneumonia - viral vs bacterial Continue doxycycline viral panel negative, follow-up cultures follow-up urine Legionella wean O2 as tolerated acute on chronic CHF, unspecified status post 40 mg IV Lasix x1 follow-up echo HTN Coreg, hydralazine, nifedipine HLD statin GERD PPI DVT pptx, lovenox
[2020-06-15] MEDS: Enoxaparin Sodium 40 MG/0.4 ML SYRINGE SUBCUT (13:22)
--- NOTE | 2020-06-15 13:53 | PM.CNCAR ---
History of Present Illness History of Present Illness Date of Service: 06/15/20 Requesting physician: Jeremy Mattson Chief complaint: sepsis, dyspnea Narrative: 85-year-old female who is presenting with shortness of breath. She said over the weekend she started feeling shortness of breath which progressively worsened. She had no chest discomfort. With these symptoms she came to [facility] her viral panel did not show any abnormalities including negative COVID testing. She has been significantly short of breath and was short of breath at the time of interview also. She had x-ray done which showed concerns for heart failure also with some fluid in the fissure. She has no previous history of heart failure. She is currently on antibiotics for atypical pneumonia. Review of Systems Review of Systems: short of breath Yes all other systems are reviewed and are negative [facility] Past Medical History Medical History Carcinoma of colon GERD (gastroesophageal reflux disease) High cholesterol HTN (hypertension) Rheumatic fever Subarachnoid bleed Family History Family History Other Colon cancer Surgical History Surgical History H/O hemicolectomy Social History Social History (Updated 06/14/20 @ 09:37 by Tad Sands MD) Household Members: Significant Other Housing: House Do you presently have visiting nurse or other home services: No Alcohol intake: never Smoking Status: Former smoker Use of substances other than those prescribed or required for medical reasons: No Currently Displaying Signs/Symptoms of Drug Intoxication Withdrawal: No Have you been hit, kicked, punched, or otherwise hurt by someone within the past year? If so, by whom?: No Do you feel safe in your current relationship?: No Is there a partner from a previous relationship who is making you feel unsafe now?: No Are you made to feel afraid or neglected: No Advance Directives: No Advance Directives Information Provided: No Advance Directives on File: No Do you have thoughts of harming others: None Do you have a plan to hurt others: No Plan Recently lost weight without trying: No service: No Current occupational status: retired Meds Allergies Allergy/AdvReac Type Severity Reaction Status Date / Time cimetidine [From TAGAMET] Allergy Mild HEADACHES Verified 05/29/20 18:24 lisinopril [LISINOPRIL] Allergy Mild COUGH Verified 05/29/20 18:24 phenytoin [Dilantin] Allergy Unknown rash Verified 11/17/13 00:00 hydrochlorothiazide AdvReac Shortness Verified 05/29/20 18:24 of Breath From DILANTIN Allergy Unknown RASH Uncoded 04/07/20 15:18 Home Medications Medication Instructions Recorded Confirmed Type ascorbic acid (vitamin C) 500 mg PO BID 06/14/20 06/14/20 History carvedilol 6.25 mg PO BID 06/14/20 06/14/20 History cholecalciferol (vitamin D3) 50 mcg PO DAILY 06/14/20 06/14/20 History docusate sodium [Colace] 100 mg PO BID 06/14/20 06/14/20 History ferrous sulfate 325 mg PO DAILY 06/14/20 06/14/20 History hydralazine 25 mg PO TID 06/14/20 06/14/20 History multivitamin 1 tab PO DAILY 06/14/20 06/14/20 History nifedipine 60 mg PO DAILY 06/14/20 06/14/20 History olmesartan 40 mg PO DAILY 06/14/20 06/14/20 History omeprazole 40 mg PO DAILY@0630 06/14/20 06/14/20 History simvastatin 40 mg PO BEDTIME 06/14/20 06/14/20 History Physical Exam Vital Signs: Vital Signs: Last Vital Signs Temp 98.5 F 06/15/20 11:10 Pulse 81 06/15/20 11:10 Resp 20 06/15/20 11:10 BP 166/75 H 06/15/20 11:10 Pulse Ox 95 06/15/20 11:10 Body Mass Index 29.9 GENERAL APPEARANCE: distressed due to shortness of breath. HEENT: unremarkable. HEAD: normocephalic, atraumatic. NECK/THYROID: no carotid bruit, JVD approximately 13 cm water. SKIN: no suspicious lesions, warm and dry. HEART: no murmurs, regular rate and rhythm, S1, S2 normal. LUNGS: mild expiratory wheezes bilaterally. ABDOMEN: normal, bowel sounds present, soft, nontender, nondistended. EXTREMITIES: no clubbing, cyanosis, or edema. PERIPHERAL PULSES: equal. NEUROLOGIC: nonfocal, alert and oriented. PSYCH: mood/affect full range. Results Labs and Meds Result diagrams: 06/15/20 05:32 06/15/20 05:32 Lab results: Laboratory Results - last 24 hr 06/15/20 06/15/20 06/15/20 05:32 05:32 05:32 WBC RBC Hgb Hct MCV MCH MCHC RDW Plt Count MPV Immature Gran % (Auto) Neut % (Auto) Lymph % (Auto) [place] % (Auto) Eos % (Auto) Baso % (Auto) Lymph # (Auto) [place] # (Auto) Eos # (Auto) Baso # (Auto) Abs Immat Gran (auto) Absolute Neuts (auto) Absolute Nucleated RBC Nucleated RBC % (auto) Smear Tech's Comments D-Dimer 692 Sodium Potassium Chloride Carbon Dioxide Anion Gap BUN Creatinine Estim Creat Clear Calc Estimated GFR Random Glucose Calcium Total Bilirubin 0.5 Direct Bilirubin 0.4 AST 45 H D ALT 111 H Alkaline Phosphatase 121 H D Total Protein 5.7 L D Albumin 3.1 L D Procalcitonin 1.17 06/15/20 06/15/20 05:32 05:32 WBC 9.8 RBC 3.13 L D Hgb 9.3 L D Hct 28.8 L D MCV 92.0 MCH 29.7 MCHC 32.3 RDW 12.8 Plt Count 151 L D MPV 10.5 Immature Gran % (Auto) 0.6 H Neut % (Auto) 83.6 H Lymph % (Auto) 5.4 L [place] % (Auto) 9.3 Eos % (Auto) 0.9 Baso % (Auto) 0.2 Lymph # (Auto) 0.5 L [place] # (Auto) 0.9 Eos # (Auto) 0.1 Baso # (Auto) 0.0 Abs Immat Gran (auto) 0.06 H Absolute Neuts (auto) 8.2 Absolute Nucleated RBC 0.000 Nucleated RBC % (auto) 0.0 Smear Tech's Comments VERIFIED D-Dimer Sodium 137 Potassium 3.3 Chloride 105 Carbon Dioxide 24 Anion Gap 11 L BUN 26 H Creatinine 0.80 Estim Creat Clear Calc 54.1 Estimated GFR > 60 Random Glucose 113 Calcium 7.7 L D Total Bilirubin Direct Bilirubin AST ALT Alkaline Phosphatase Total Protein Albumin Procalcitonin EKG Interpretation EKG Comments: ECG showing sinus rhythm, normal axis, left atrial enlargement, QTC 426 milliseconds Assessment and Plan (1) Fever: Qualifiers: Fever type: unspecified Qualified Code(s): R50.9 - Fever, unspecified Status: Acute (2) Sepsis: Qualifiers: Sepsis acute organ dysfunction status: unspecified Sepsis type: sepsis due to unspecified organism Qualified Code(s): A41.9 - Sepsis, unspecified organism Problem details: Check blood cultures Continue Doxycycline Can do standard rather than airborne precautions Status: Acute (3) Pneumonia: Qualifiers: Laterality: bilateral Lung location: unspecified part of lung Pneumonia type: due to unspecified organism Qualified Code(s): J18.9 - Pneumonia, unspecified organism Problem details: There is concern over atypical pneumonia No evidence of COVID at this time Status: Acute (4) Diffuse wheezing: Status: Acute pleasant 85-year-old female who is presenting with progressive dyspnea. Her presentation is consistent with some sort of infective process and she is being treated for atypical pneumonia. She has also has some evidence of clinical heart failure with the volume overload on x-ray including fluid in the fissure. she has distended neck veins. I would give her IV diuretics. Please put 1 in of nitroglycerin on her every 6 hours. Her blood pressure is elevated right now. If she has no problem with nitroglycerin then we can change it to Imdur. I will check echocardiogram to assess for any structural issues. Thank you for allowing me to participate in the care of your patient. Please feel free to contact me if you have any questions.
[2020-06-15] MEDS: Nitroglycerin 2 % Oint 1 GM Packet 1 INCH TRANSDERMA (15:31)
--- NOTE | 2020-06-15 16:00 | CA_ITS ---
Transthoracic Echocardiogram Patient (Last, First, Middle): Dunia Dow Ann Gender: Female Date of : 1935 Age: 85 Procedure Date: 06/15/2020 Procedure Type: Transthoracic [place] [facility] [place]: 162.56 cm Weight: 78.93 kg BSA: 1.84 m2 Heart Rate: bpm BP: 153 / 67 mmHg Admittance Attendant: Referring MD: Andry Morse MD Symptoms: Dyspnea, CHF Study Quality: Fair ECG Rhythm: Sinus with extra beats Conclusions: - Normal left ventricular size and systolic function. - E/E prime ratio is between 8 and 15 consistent with indeterminate filling pressures. - The left atrium is severely dilated. - There is mild aortic valve stenosis. Findings Left Ventricle Normal left ventricular size and systolic function. There is mildly increased left ventricular wall thickness. The visually estimated ejection fraction is between 60-65%. There is no evidence of regional wall motion abnormalities. Abnormal diastolic function is noted. Spectral Doppler is indicative of a pseudonormal filling pattern. E/E prime ratio is between 8 and 15 consistent with indeterminate filling pressures. Right Ventricle Normal right ventricular cavity size and systolic function. Atria The left atrium is severely dilated. Aortic Valve There is a normal trileaflet aortic valve. There is moderate thickening of the aortic valve. There is mild aortic valve stenosis. There is no aortic valve regurgitation. Mitral Valve Normal mitral valve structure and function. There is trace mitral valve regurgitation. There is no mitral valve stenosis. Pulmonic Valve Normal pulmonic valve structure and function. There is trace pulmonic valve regurgitation. Tricuspid Valve Normal tricuspid valve structure and function. There is mild tricuspid valve regurgitation. Normal right atrial pressure. There is no evidence of pulmonary hypertension. Great Vessels All visible segments of the aorta are normal in size. The visualized portions of the pulmonary artery and branches are normal. Venous The inferior vena cava is normal in size and collapses greater than 50% with inspiration. Pericardium/Pleural There is no evidence of pericardial effusion. Measurements 2D Linear Measurements IVSd: 1.22 0.6-0.9/0.6-1.0 cm LVIDd: 3.98 3.9-5.3/4.2-5.9 cm LVIDd Index: 2.16 2.4-3.2/2.2-3.1 cm/m2 LVIDs: 2.45 2.0-3.6 cm LVPWd: 1.20 0.7-1.1 cm Ao Root: 3.00 2.1-3.5 cm LA Diam: 4.10 2.7-3.8/3.0-4.0 cm LAIDs Index: 2.23 1.5-2.3 cm/m2 LV Mass: 207.06 67-162/88-224 g LV Mass Index: 112.53 43-95/49-115 g/m2 LVOT Diam: 2.10 3.0+(-)1.3 cm Mitral Valve MV Pk E: 1.17 MV PK A: 0.90 MV Decel Time: 180.00 E/A: 1.30 E'Lateral: 9.28 E'Medial: 8.51 E/E' Med: 13.70 E/E' Lat: 12.60 PHT: 53.00 MVA PHT: 4.15 Decel Brooke: 6.54 Aortic Valve AoV Pk Ankit: 2.25 AoV Mn Ankit: 1.37 AoV VTI: 0.51 AoV Pk Grad: 20.00 Aov Mn Grad: 10.00 JOSETTE Cont.VTI: 2.29 LVOT LVOT Pk Ankit: 1.40 LVOT Mn Ankit: 0.92 LVOT VTI: 0.34 LVOT Pk Grad: 8.00 LVOT Mn Grad: 4.00 LVOT Diam: 2.10 LVOT Area: 3.46 Diastolic Function MV Pk E: 1.17 MV Pk A: 0.90 E/A: 1.30 E'Medial: 8.51 E/E' Med: 13.70 E' Laterial: 9.28 E/E' Lat: 12.60 Tricuspid Valve TR Pk Ankit: 3.22 TR Pk Grad: 41.00 Great Vessels Aorta Ao Root-2D: 3.00 2.0-3.7 cm Ao Asc: 3.30 2.1-3.4 cm Pulmonary Valve PV Pk Ankit: 1.18 Peak PV Grad: 6.00 Updated in Other Vendor System with Status of Final Andry Morse MD electronically signed on 06/15/2020 9:05:33 PM with status of Final
[2020-06-16] VITALS (8 sets, daily range): BP systolic 102–137; BP diastolic 56–63; PULSE 69–77; RESP 16–20; TEMP 36.8–37.2; O2SAT 91–97
[2020-06-16] MEDS: Doxycycline Hyclate 100 MG in 0.9 % Sodium Chloride 250 ML 166.67 MG IV (01:22)
[2020-06-16] MEDS: Omeprazole 40 MG CAPSULE.DR PO (05:54)
[2020-06-16 07:34] LABS: Basophils Percent Auto 0.4 % (0-2); Eosinophils Absolute Auto 0.4 X10*3/uL (0.0-0.4); Eosinophils Percent Auto 5.2 % (0-4); Hematocrit 28.6 % (37-47); Hemoglobin 9.4 g/dl (12.0-16.0); Imm Gran Abs Auto 0.06 X10*3/uL (0.00-0.03); Imm Gran Pct Auto 0.7 % (0.0-0.4); Lymphocytes Absolute Auto 0.6 X10*3/uL (1.2-4.9); Lymphocytes Percent Auto 7.2 % (20-40); MANUAL DIFF FLAG SCAN; Mean Corpuscular HGB Conc 32.9 g/dl (31.0-35.0); Mean Corpuscular Hemoglobin 30.2 pg (27.0-33.0); Mean Platelet Volume 10.7 fL (9.4-12.3); Monocytes Absolute Auto 0.7 X10*3/uL (0.1-1.2); Monocytes Percent Auto 8.5 % (2-11); Neutrophils Absolute Auto 6.5 X10*3/uL (2.0-8.3); Platelet Count 187 X10*3/uL (160-400); Red Blood Count 3.11 X10*6/uL (4.20-5.50); Red Cell Distribution Width 12.9 % (11.0-16.0); SCAN SMEAR FLAG 1; White Blood Count 8.3 X10*3/uL (4.8-10.8)
[2020-06-16 07:55] LABS: Anion Gap 14 (12-20); Blood Urea Nitrogen 32 mg/dL (9-16); Calcium 7.9 mg/dL (8.4-10.2); Carbon Dioxide 26 mmol/L (22-29); Chloride 101 mmol/L (96-108); Creatinine Clr Calc Pharmacy 52.9; Estimated Glomerular Filt Rate > 60; Glucose Fasting 100 mg/dL (60-99); Magnesium 1.9 mg/dL (1.6-2.6); Potassium 3.5 mmol/l (3.3-5.1); Sodium 137 mmol/L (135-145)
[2020-06-16] MEDS: Albuterol/Iprat 2.5/0.5MG 3 ML AMPUL.NEB INHALE (08:22)
[2020-06-16 08:33] LABS: SLIDE REVIEW VERIFIED
[2020-06-16] MEDS: Docusate Sodium 100 MG CAPSULE PO ×2 (09:05→20:24)
[2020-06-16] MEDS: Nitroglycerin 2 % Oint 1 GM Packet 1 INCH TRANSDERMA ×2 (09:06→20:24)
[2020-06-16] MEDS: Ascorbic Acid 500 MG TABLET PO ×2 (09:06→20:23)
[2020-06-16] MEDS: hydrALAZINE HCl 25 MG TABLET PO ×3 (09:06→20:23)
[2020-06-16] MEDS: Multivitamin TABLET 1 TAB PO (09:06)
[2020-06-16] MEDS: Cholecalciferol (Vitamin D3) 25 MCG TABLET 50 MCG PO (09:06)
[2020-06-16] MEDS: NIFEdipine ER 60 MG TAB.ER.24 PO (09:07)
[2020-06-16] MEDS: 0.9 % Sodium Chloride Flush 3 ML SYRINGE IVFLUSH ×3 (09:07→23:08)
[2020-06-16] MEDS: carvediloL 6.25 MG TABLET PO (09:07)
--- NOTE | 2020-06-16 11:43 | HO.PM.IMPN ---
Subjective Subjective Date of Service: 06/16/20 Interval History: better but still sob Cardiovascular Cardiovascular: Reports no additional cardiovascular complaints Gastrointestinal Gastrointestinal: Reports no additional gastrointestinal complaints Physical Exam Vital Signs: Vital Signs: Last Vital Signs Temp 98.6 F 06/16/20 11:31 Pulse 72 06/16/20 11:31 Resp 18 06/16/20 11:31 BP 102/56 L 06/16/20 11:31 Pulse Ox 92 06/16/20 11:31 Body Mass Index 29.9 General: AO X 3, no acute distress Resp: bibasilar crackles CVS: S1,S2,RRR GI: soft, non tender, non distended Neuro: motor grossly intact Psych: appropriate affect Objective Data Current Medications Generic Name Dose Route Start Last Admin Trade Name Hajaq PRN Reason Stop Dose Admin Acetaminophen 650 mg 06/14/20 12:18 Acetaminophen 325 Mg Tablet PO Q6H PRN Pain, Mild (Pain Scale 1-3) Albuterol/Ipratropium 3 ml 06/14/20 20:00 06/16/20 08:22 Albuterol/Iprat 2.5/0.5mg 3 Ml Ampul.Neb INHALE 3 ml RQ6H WHILE AWAKE MICAELA Administration Ascorbic Acid 500 mg 06/14/20 21:00 06/16/20 09:06 Ascorbic Acid 500 Mg Tablet PO 500 mg BID MICAELA Administration Carvedilol 6.25 mg 06/14/20 21:00 06/16/20 09:07 Carvedilol 6.25 Mg Tablet PO 6.25 mg BID MICAELA Administration Protocol Docusate Sodium 100 mg 06/14/20 21:00 06/16/20 09:05 Docusate Sodium 100 Mg Capsule PO 100 mg BID MICAELA Administration Enoxaparin Sodium 40 mg 06/14/20 13:00 06/15/20 13:22 Enoxaparin Sodium 40 Mg/0.4 Ml Syringe SUBCUT 40 mg Q24H MICAELA Administration Hydralazine HCl 25 mg 06/14/20 15:00 06/16/20 09:06 Hydralazine Hcl 25 Mg Tablet PO 25 mg TID MICAELA Administration Protocol Doxycycline Hyclate 100 mg/ 250 mls @ 166.67 mls/hr 06/14/20 13:00 06/16/20 02:50 Sodium Chloride IV Infused Q12H MICAELA Infusion Multivitamins/Vitamin C 1 tab 06/15/20 09:00 06/16/20 09:06 Multivitamin Tablet PO 1 tab DAILY MICAELA Administration Nifedipine 60 mg 06/15/20 09:00 06/16/20 09:07 Nifedipine Er 60 Mg Tab.Er.24 PO 60 mg DAILY MICAELA Administration Protocol Nitroglycerin 1 inch 06/15/20 14:00 06/16/20 09:06 Nitroglycerin 2 % Oint 1 Gm Packet TRANSDERMA 1 inch RQ6H WHILE AWAKE MICAELA Administration Omeprazole 40 mg 06/15/20 06:30 06/16/20 05:54 Omeprazole 40 Mg Capsule. PO 40 mg DAILY@0630 MICAELA Administration Ondansetron HCl 4 mg 06/14/20 12:18 Ondansetron Hcl 4 Mg/2 Ml Vial IVPUSH Q8H PRN Nausea and Vomiting Pharmacy Consult 1 each 06/14/20 08:13 Consult Rx Perform Med Rec MISCELLANE ONCE PRN Consult order Sodium Chloride 3 ml 06/14/20 16:00 06/16/20 09:07 0.9 % Sodium Chloride Flush 3 Ml Syringe IVFLUSH 3 ml QSHIFT MICAELA Administration Vitamin D 50 mcg 06/15/20 09:00 06/16/20 09:06 Cholecalciferol (Vitamin D3) 25 Mcg Tablet PO 50 mcg DAILY MICAELA Administration Labs CBC & Chem 7: 06/16/20 06:16 06/16/20 05:40 Microbiology Microbiology Results: Microbiology 06/14/20 05:42 Blood - Venous Blood Culture - Preliminary No growth after 48 hours. 06/14/20 05:38 Blood - Venous Blood Culture - Preliminary No growth after 48 hours. Assessment and Plan (1) Pneumonia: Problem details: There is concern over atypical pneumonia No evidence of COVID at this time Status: Acute (2) Sepsis: Problem details: Check blood cultures Continue Doxycycline Can do standard rather than airborne precautions Status: Acute Assessment and Plan: 85 yo F with a PMH of HTN, HLD, GERD, Colon Ca - s/p resection, prior subarachnoid bleed who presented to the hospital with complaints of progressive shortness of breath, subjective fevers, myalgias. Sepsis secondary to pneumonia - viral vs bacterial complicated by acute hypoxic respiratory failure Continue doxycycline viral panel negative, follow-up cultures follow-up urine Legionella wean O2 as tolerated, will at predniosne acute on chronic CHF, diastolic status post 40 mg IV Lasix x1 follow-up cardiology HTN Coreg, hydralazine, nifedipine HLD statin GERD PPI DVT pptx, lovenox
--- NOTE | 2020-06-16 12:10 | P.PNCA_ITS ---
Subjective Subjective Date of Service: 06/16/20 Interval history: Feeling little better but still short of breath when she tries to walk few steps. Review of Systems Review of Systems Dyspnea Yes all other systems are reviewed and are negative Physical Exam Vital Signs: Last Vital Signs Temp 98.6 F 06/16/20 11:31 Pulse 72 06/16/20 11:31 Resp 18 06/16/20 11:31 BP 102/56 L 06/16/20 11:31 Pulse Ox 92 06/16/20 11:31 Body Mass Index 29.9 GENERAL APPEARANCE: dyspneic HEENT: unremarkable. HEAD: normocephalic, atraumatic. NECK/THYROID: no carotid bruit, positive JVD. SKIN: no suspicious lesions, warm and dry. HEART: systolic murmur aortic area, regular rate and rhythm, S1, S2 normal. LUNGS: clear to auscultation bilaterally. ABDOMEN: normal, bowel sounds present, soft, nontender, nondistended. EXTREMITIES: no clubbing, cyanosis, or edema. PERIPHERAL PULSES: equal. NEUROLOGIC: nonfocal, alert and oriented. PSYCH: mood/affect full range. Results Labs and Meds Result diagrams: 06/16/20 06:16 06/16/20 05:40 Lab results: Laboratory Results - last 24 hr 06/16/20 06/16/20 05:40 06:16 WBC 8.3 RBC 3.11 L Hgb 9.4 L Hct 28.6 L MCV 92.0 MCH 30.2 MCHC 32.9 RDW 12.9 Plt Count 187 MPV 10.7 Immature Gran % (Auto) 0.7 H Neut % (Auto) 78.0 H Lymph % (Auto) 7.2 L [place] % (Auto) 8.5 Eos % (Auto) 5.2 H Baso % (Auto) 0.4 Lymph # (Auto) 0.6 L [place] # (Auto) 0.7 Eos # (Auto) 0.4 Baso # (Auto) 0.0 Abs Immat Gran (auto) 0.06 H Absolute Neuts (auto) 6.5 Absolute Nucleated RBC 0.000 Nucleated RBC % (auto) 0.0 Smear Tech's Comments VERIFIED Sodium 137 Potassium 3.5 Chloride 101 Carbon Dioxide 26 Anion Gap 14 BUN 32 H Creatinine 0.82 Estim Creat Clear Calc 52.9 Estimated GFR > 60 Fasting Glucose 100 H Calcium 7.9 L Magnesium 1.9 Progress Note: A&P Assessment and plan (1) Pneumonia: Problem details: There is concern over atypical pneumonia No evidence of COVID at this time Status: Acute (2) CHF (congestive heart failure): Status: Acute Assessment and Plan: pleasant 85-year-old female who presented with shortness of breath. X-ray and imaging has shown evidence of atypical pneumonia. She is on antibiotics. She also had some signs of volume overload and clinical heart failure and fluid in the fissure on chest x-ray. She has been given IV diuretics. I think she should get IV dose of Lasix again today. I think the main issue is pneumonia which probably triggered heart failure which is a common scenario. Her echocardiography did not show any significant cardiomyopathy or any other issues. I will decrease the carvedilol 3.125 mg twice a day. Her blood pressure is little soft and cutting back on beta-chau may help her heart failure and she may diurese better. We will follow along with you. Thank you for allowing me to participate in the care of your patient. Please feel free to contact me if you have any questions. Fall Risk Details Current Medications: Current Medications Generic Name Dose Route Start Last Admin Trade Name Freq PRN Reason Stop Dose Admin Acetaminophen 650 mg 06/14/20 12:18 Acetaminophen 325 Mg Tablet PO Q6H PRN Pain, Mild (Pain Scale 1-3) Albuterol/Ipratropium 3 ml 06/14/20 20:00 06/16/20 08:22 Albuterol/Iprat 2.5/0.5mg 3 Ml Ampul.Neb INHALE 3 ml RQ6H WHILE AWAKE MICAELA Administration Ascorbic Acid 500 mg 06/14/20 21:00 06/16/20 09:06 Ascorbic Acid 500 Mg Tablet PO 500 mg BID MICAELA Administration Carvedilol 3.125 mg 06/16/20 21:00 Carvedilol 6.25 Mg Tablet PO BID MICAELA Protocol Docusate Sodium 100 mg 06/14/20 21:00 06/16/20 09:05 Docusate Sodium 100 Mg Capsule PO 100 mg BID MICAELA Administration Enoxaparin Sodium 40 mg 06/14/20 13:00 06/15/20 13:22 Enoxaparin Sodium 40 Mg/0.4 Ml Syringe SUBCUT 40 mg Q24H MICAELA Administration Hydralazine HCl 25 mg 11/24/20 15:00 06/16/20 09:06 Hydralazine Hcl 25 Mg Tablet PO 25 mg TID [facility] Administration Protocol Doxycycline Hyclate 100 mg/ 250 mls @ 166.67 mls/hr 06/14/20 13:00 06/16/20 02:50 Sodium Chloride IV Infused Q12H MICAELA Infusion Multivitamins/Vitamin C 1 tab 06/15/20 09:00 06/16/20 09:06 Multivitamin Tablet PO 1 tab DAILY MICAELA Administration Nifedipine 60 mg 06/15/20 09:00 06/16/20 09:07 Nifedipine Er 60 Mg Tab.Er.24 PO 60 mg DAILY MICAELA Administration Protocol Nitroglycerin 1 inch 06/15/20 14:00 06/16/20 09:06 Nitroglycerin 2 % Oint 1 Gm Packet TRANSDERMA 1 inch RQ6H WHILE AWAKE MICAELA Administration Omeprazole 40 mg 06/15/20 06:30 06/16/20 05:54 Omeprazole 40 Mg Capsule.Dr PO 40 mg DAILY@0630 [facility] Administration Ondansetron HCl 4 mg 06/14/20 12:18 Ondansetron Hcl 4 Mg/2 Ml Vial IVPUSH Q8H PRN Nausea and Vomiting Pharmacy Consult 1 each 06/14/20 08:13 Consult Rx Perform Med Rec MISCELLANE ONCE PRN Consult order Prednisone 30 mg 06/17/20 09:00 Prednisone 10 Mg Tablet PO DAILY [facility] Sodium Chloride 3 ml 06/14/20 16:00 06/16/20 09:07 0.9 % Sodium Chloride Flush 3 Ml Syringe IVFLUSH 3 ml QSHIFT [facility] Administration Vitamin D 50 mcg 06/15/20 09:00 06/16/20 09:06 Cholecalciferol (Vitamin D3) 25 Mcg Tablet PO 50 mcg DAILY MICAELA Administration Time Spent With Patient Time: Total time spent is greater than 50% in coordination of care (as documented) at patient's floor/unit and/or counseling patient: Time with patient: less than 15 minutes
[2020-06-16] MEDS: Doxycycline Hyclate 100 MG in 0.9 % Sodium Chloride 250 ML 166.6 MG IV ×2 (13:00→23:10)
[2020-06-16] MEDS: Furosemide 40 MG/4 ML VIAL IVPUSH (13:01)
[2020-06-16] MEDS: Enoxaparin Sodium 40 MG/0.4 ML SYRINGE SUBCUT (13:01)
[2020-06-16] MEDS: carvediloL 3.125 MG TABLET PO (20:23)
[2020-06-16] MEDS: ondansetron HCL 4 MG/2 ML VIAL IVPUSH (23:13)
[2020-06-17] VITALS (8 sets, daily range): BP systolic 107–146; BP diastolic 54–70; PULSE 63–78; RESP 16–70; TEMP 36.1–37.3; O2SAT 92–97
--- NOTE | 2020-06-17 | XR_ITS ---
EXAMINATION: XR CHEST CLINICAL INFORMATION: Follow-up opacities. COMPARISON: Chest radiograph and chest CTA dated 06/14/2020. TECHNIQUE: Frontal view of the chest was obtained. FINDINGS: Lordotic positioning is suboptimal. Mild increased interstitial markings are seen bilaterally. Right basilar markings have decreased. The heart and mediastinal structures are unremarkable. XR/XR chest 1V IMPRESSION: Increased interstitial markings appear similar to the previous study when accounting for lower lung volumes and lordotic positioning. This is nonspecific and may be projectional however mild edema cannot be excluded. Interval decrease in right basilar markings.
[2020-06-17] MEDS: Omeprazole 40 MG CAPSULE.DR PO (06:00)
[2020-06-17 07:17] LABS: Basophils Absolute Auto 0.1 X10*3/uL (0.0-0.2); Basophils Percent Auto 0.7 % (0-2); Eosinophils Absolute Auto 0.6 X10*3/uL (0.0-0.4); Eosinophils Percent Auto 7.5 % (0-4); Hematocrit 27.9 % (37-47); Hemoglobin 9.2 g/dl (12.0-16.0); Imm Gran Abs Auto 0.06 X10*3/uL (0.00-0.03); Imm Gran Pct Auto 0.8 % (0.0-0.4); Lymphocytes Absolute Auto 0.5 X10*3/uL (1.2-4.9); Lymphocytes Percent Auto 7.3 % (20-40); MANUAL DIFF FLAG SCAN; Mean Corpuscular Hemoglobin 30.5 pg (27.0-33.0); Mean Corpuscular Volume 92.4 fL (80-98); Mean Platelet Volume 10.7 fL (9.4-12.3); Monocytes Absolute Auto 0.8 X10*3/uL (0.1-1.2); Monocytes Percent Auto 10.3 % (2-11); Neutrophils Absolute Auto 5.4 X10*3/uL (2.0-8.3); Neutrophils Percent Auto 73.4 % (45-73); Platelet Count 212 X10*3/uL (160-400); Red Blood Count 3.02 X10*6/uL (4.20-5.50); Red Cell Distribution Width 12.9 % (11.0-16.0); SCAN SMEAR FLAG 1; White Blood Count 7.4 X10*3/uL (4.8-10.8)
[2020-06-17] MEDS: Albuterol/Iprat 2.5/0.5MG 3 ML AMPUL.NEB INHALE ×2 (07:24→19:49)
[2020-06-17 07:56] LABS: Anion Gap 15 (12-20); Blood Urea Nitrogen 35 mg/dL (9-16); Calcium 7.7 mg/dL (8.4-10.2); Carbon Dioxide 25 mmol/L (22-29); Chloride 101 mmol/L (96-108); Creatinine Clr Calc Pharmacy 47.1; Estimated Glomerular Filt Rate 58; Glucose Fasting 98 mg/dL (60-99); Potassium 3.4 mmol/l (3.3-5.1); Sodium 138 mmol/L (135-145)
[2020-06-17 08:37] LABS: SLIDE REVIEW VERIFIED
[2020-06-17] MEDS: 0.9 % Sodium Chloride Flush 3 ML SYRINGE IVFLUSH ×2 (10:36→15:25)
[2020-06-17] MEDS: Docusate Sodium 100 MG CAPSULE PO ×2 (10:37→21:01)
[2020-06-17] MEDS: predniSONE 10 MG TABLET 30 MG PO (10:37)
[2020-06-17] MEDS: Ascorbic Acid 500 MG TABLET PO ×2 (10:38→21:01)
[2020-06-17] MEDS: Multivitamin TABLET 1 TAB PO (10:38)
[2020-06-17] MEDS: Cholecalciferol (Vitamin D3) 25 MCG TABLET 50 MCG PO (10:39)
--- NOTE | 2020-06-17 10:51 | P.PNIM_ITS ---
Subjective Subjective Date of Service: 06/17/20 Interval History: lethargic Cardiovascular Cardiovascular: Reports no additional cardiovascular complaints Respiratory Respiratory: Reports no additional respiratory complaints Physical Exam Vital Signs: Vital Signs: Last Vital Signs Temp 99.2 F 06/17/20 08:00 Pulse 72 06/17/20 03:32 Resp 70 H 06/17/20 08:00 BP 107/54 L 06/17/20 08:00 Pulse Ox 92 06/17/20 08:00 Body Mass Index 29.9 General: lethargic, O X 3 acute distress Resp: crackles CVS: S1,S2,RRR GI: soft, non tender, non distended Neuro: motor grossly intact Psych: appropriate affect Objective Data Current Medications Generic Name Dose Route Start Last Admin Trade Name Freq PRN Reason Stop Dose Admin Acetaminophen 650 mg 06/14/20 12:18 Acetaminophen 325 Mg Tablet PO Q6H PRN Pain, Mild (Pain Scale 1-3) Albuterol/Ipratropium 3 ml 06/14/20 20:00 06/17/20 07:24 Albuterol/Iprat 2.5/0.5mg 3 Ml Ampul.Neb INHALE 3 ml RQ6H WHILE AWAKE MICAELA Administration Ascorbic Acid 500 mg 06/14/20 21:00 06/17/20 10:38 Ascorbic Acid 500 Mg Tablet PO 500 mg BID MICAELA Administration Carvedilol 3.125 mg 06/16/20 21:00 06/17/20 10:38 Carvedilol 3.125 Mg Tablet PO Not Given BID [facility] Protocol Docusate Sodium 100 mg 06/14/20 21:00 06/17/20 10:37 Docusate Sodium 100 Mg Capsule PO 100 mg BID MICAELA Administration Enoxaparin Sodium 40 mg 06/14/20 13:00 06/16/20 13:01 Enoxaparin Sodium 40 Mg/0.4 Ml Syringe SUBCUT 40 mg Q24H MICAELA Administration Hydralazine HCl 25 mg 06/14/20 15:00 06/17/20 10:38 Hydralazine Hcl 25 Mg Tablet PO Not Given TID MICAELA Protocol Doxycycline Hyclate 100 mg/ 250 mls @ 166.67 mls/hr 06/14/20 13:00 06/17/20 01:25 Sodium Chloride IV Infused Q12H MICAELA Infusion Multivitamins/Vitamin C 1 tab 06/15/20 09:00 06/17/20 10:38 Multivitamin Tablet PO 1 tab DAILY [facility] Administration Nifedipine 60 mg 06/15/20 09:00 06/17/20 10:39 Nifedipine Er 60 Mg Tab.Er.24 PO Not Given DAILY [facility] Protocol Nitroglycerin 1 inch 06/15/20 14:00 06/17/20 10:37 Nitroglycerin 2 % Oint 1 Gm Packet TRANSDERMA Not Given RQ6H WHILE AWAKE [facility] Omeprazole 40 mg 06/15/20 06:30 06/17/20 06:00 Omeprazole 40 Mg Capsule.Dr PO 40 mg DAILY@0630 [facility] Administration Ondansetron HCl 4 mg 06/14/20 12:18 06/16/20 23:13 Ondansetron Hcl 4 Mg/2 Ml Vial IVPUSH 4 mg Q8H PRN Administration Nausea and Vomiting Pharmacy Consult 1 each 06/14/20 08:13 Consult Rx Perform Med Rec MISCELLANE ONCE PRN Consult order Prednisone 30 mg 06/17/20 09:00 06/17/20 10:37 Prednisone 10 Mg Tablet PO 30 mg DAILY [facility] Administration Sodium Chloride 3 ml 06/14/20 16:00 06/17/20 10:36 0.9 % Sodium Chloride Flush 3 Ml Syringe IVFLUSH 3 ml QSHIFT [facility] Administration Vitamin D 50 mcg 06/15/20 09:00 06/17/20 10:39 Cholecalciferol (Vitamin D3) 25 Mcg Tablet PO 50 mcg DAILY MICAELA Administration Labs CBC & Chem 7: 06/17/20 05:30 06/17/20 05:30 Microbiology Microbiology Results: Microbiology 06/14/20 05:42 Blood - Venous Blood Culture - Preliminary No growth after 48 hours. 06/14/20 05:38 Blood - Venous Blood Culture - Preliminary No growth after 48 hours. Assessment and Plan (1) Pneumonia: Problem details: There is concern over atypical pneumonia No evidence of COVID at this time Status: Acute (2) Sepsis: Problem details: Check blood cultures Continue Doxycycline Can do standard rather than airborne precautions Status: Acute Assessment and Plan: 85 yo F with a PMH of HTN, HLD, GERD, Colon Ca - s/p resection, prior subarachnoid bleed who presented to the hospital with complaints of progressive shortness of breath, subjective fevers, myalgias. Sepsis secondary to pneumonia - viral vs bacterial complicated by acute hypoxic respiratory failure Continue doxycycline viral panel negative, follow-up cultures follow-up urine Legionella, will recheck covid wean O2 as tolerated, continue predniosne acute on chronic CHF, diastolic status post 40 mg IV Lasix x2 cardiology following HTN Coreg decreased, hydralazine, nifedipine HLD statin GERD PPI thyrid nodule will check tsh DVT pptx, lovenox
[2020-06-17 11:14] LABS: COVID-19 Test Negative (Negative); IDNOW Serial# 9DD0AD1C
--- NOTE | 2020-06-17 11:36 | P.PNCA_ITS ---
Subjective Subjective Date of Service: 06/17/20 Interval history: Breathing is little better but she is still quite hypoxic and oxygen dependent Review of Systems Review of Systems shortness of breath Yes all other systems are reviewed and are negative Physical Exam Vital Signs: Last Vital Signs Temp 99.2 F 06/17/20 08:00 Pulse 72 06/17/20 03:32 Resp 70 H 06/17/20 08:00 BP 107/54 L 06/17/20 08:00 Pulse Ox 92 06/17/20 08:00 Body Mass Index 29.9 GENERAL APPEARANCE: dyspneic HEENT: unremarkable. HEAD: normocephalic, atraumatic. NECK/THYROID: no carotid bruit, no significant JVD today. SKIN: no suspicious lesions, warm and dry. HEART: systolic murmur aortic area, regular rate and rhythm, S1, S2 normal. LUNGS: bilateral expiratory wheezes. ABDOMEN: normal, bowel sounds present, soft, nontender, nondistended. EXTREMITIES: no clubbing, cyanosis, or edema. PERIPHERAL PULSES: equal. NEUROLOGIC: nonfocal, alert and oriented. PSYCH: mood/affect full range. Results Labs and Meds Result diagrams: 06/17/20 05:30 06/17/20 05:30 Lab results: Laboratory Results - last 24 hr 06/17/20 06/17/20 06/17/20 05:30 05:30 10:49 WBC 7.4 RBC 3.02 L Hgb 9.2 L Hct 27.9 L MCV 92.4 MCH 30.5 MCHC 33.0 RDW 12.9 Plt Count 212 MPV 10.7 Immature Gran % (Auto) 0.8 H Neut % (Auto) 73.4 H Lymph % (Auto) 7.3 L [place] % (Auto) 10.3 Eos % (Auto) 7.5 H Baso % (Auto) 0.7 Lymph # (Auto) 0.5 L [place] # (Auto) 0.8 Eos # (Auto) 0.6 H Baso # (Auto) 0.1 Abs Immat Gran (auto) 0.06 H Absolute Neuts (auto) 5.4 Absolute Nucleated RBC 0.000 Nucleated RBC % (auto) 0.0 Smear Tech's Comments VERIFIED Sodium 138 Potassium 3.4 Chloride 101 Carbon Dioxide 25 Anion Gap 15 BUN 35 H Creatinine 0.92 Estim Creat Clear Calc 47.1 Estimated GFR 58 Fasting Glucose 98 Calcium 7.7 L COVID-19 ([facility]) Negative COVID-19 Clin Com See Note Progress Note: A&P Assessment and plan (1) CHF (congestive heart failure): Status: Acute (2) Sepsis: Status: Acute (3) Pneumonia: Status: Acute Assessment and Plan: pleasant 85-year-old female who is admitted with sepsis and pneumonia. She also had some congestive heart failure. She was diuresed with some improvement in her dyspnea but she continues to be short of breath and hypoxic. She has been using on exam. she does not look overloaded today. I do not think she needs further IV diuretics. I think she should be put on 20 mg p.o. Lasix once a day. Continue the steroids and antibiotics as before. I think she has some bronchospasm secondary to viral pneumonia. She was also a smoker in the past and had 30 pack year history and quit smoking approximately 30 years ago. We will follow along with you. Thank you for allowing me to participate in the care of your patient. Please feel free to contact me if you have any questions. Fall Risk Details Current Medications: Current Medications Generic Name Dose Route Start Last Admin Trade Name Freq PRN Reason Stop Dose Admin Acetaminophen 650 mg 06/14/20 12:18 Acetaminophen 325 Mg Tablet PO Q6H PRN Pain, Mild (Pain Scale 1-3) Albuterol/Ipratropium 3 ml 06/14/20 20:00 06/17/20 07:24 Albuterol/Iprat 2.5/0.5mg 3 Ml Ampul.Neb INHALE 3 ml RQ6H WHILE AWAKE MICAELA Administration Ascorbic Acid 500 mg 06/14/20 21:00 06/17/20 10:38 Ascorbic Acid 500 Mg Tablet PO 500 mg BID MICAELA Administration Carvedilol 3.125 mg 06/16/20 21:00 06/17/20 10:38 Carvedilol 3.125 Mg Tablet PO Not Given BID MICAELA Protocol Docusate Sodium 100 mg 06/14/20 21:00 06/17/20 10:37 Docusate Sodium 100 Mg Capsule PO 100 mg BID MICAELA Administration Enoxaparin Sodium 40 mg 06/14/20 13:00 06/16/20 13:01 Enoxaparin Sodium 40 Mg/0.4 Ml Syringe SUBCUT 40 mg Q24H MICAELA Administration Furosemide 20 mg 06/17/20 11:45 Furosemide 20 Mg Tablet PO DAILY [facility] Protocol Hydralazine HCl 25 mg 06/14/20 15:00 06/17/20 10:38 Hydralazine Hcl 25 Mg Tablet PO Not Given TID [facility] Protocol Doxycycline Hyclate 100 mg/ 250 mls @ 166.67 mls/hr 06/14/20 13:00 06/17/20 01:25 Sodium Chloride IV Infused Q12H MICAELA Infusion Multivitamins/Vitamin C 1 tab 06/15/20 09:00 06/17/20 10:38 Multivitamin Tablet PO 1 tab DAILY MICAELA Administration Nifedipine 60 mg 06/15/20 09:00 06/17/20 10:39 Nifedipine Er 60 Mg Tab.Er.24 PO Not Given DAILY [facility] Protocol Nitroglycerin 1 inch 06/15/20 14:00 06/17/20 10:37 Nitroglycerin 2 % Oint 1 Gm Packet TRANSDERMA Not Given RQ6H WHILE AWAKE [facility] Omeprazole 40 mg 06/15/20 06:30 06/17/20 06:00 Omeprazole 40 Mg Capsule.Dr PO 40 mg DAILY@0630 [facility] Administration Ondansetron HCl 4 mg 06/14/20 12:18 06/16/20 23:13 Ondansetron Hcl 4 Mg/2 Ml Vial IVPUSH 4 mg Q8H PRN Administration Nausea and Vomiting Pharmacy Consult 1 each 06/14/20 08:13 Consult Rx Perform Med Rec MISCELLANE ONCE PRN Consult order Prednisone 30 mg 06/17/20 09:00 06/17/20 10:37 Prednisone 10 Mg Tablet PO 30 mg DAILY MICAELA Administration Sodium Chloride 3 ml 06/14/20 16:00 06/17/20 10:36 0.9 % Sodium Chloride Flush 3 Ml Syringe IVFLUSH 3 ml QSHIFT [facility] Administration Vitamin D 50 mcg 06/15/20 09:00 06/17/20 10:39 Cholecalciferol (Vitamin D3) 25 Mcg Tablet PO 50 mcg DAILY MICAELA Administration Time Spent With Patient Time: Total time spent is greater than 50% in coordination of care (as documented) at patient's floor/unit and/or counseling patient: Time with patient: less than 15 minutes
[2020-06-17] MEDS: Doxycycline Hyclate 100 MG in 0.9 % Sodium Chloride 250 ML 166.67 MG IV (12:51)
[2020-06-17] MEDS: Enoxaparin Sodium 40 MG/0.4 ML SYRINGE SUBCUT (12:51)
[2020-06-17] MEDS: Nitroglycerin 2 % Oint 1 GM Packet 1 INCH TRANSDERMA ×2 (12:55→21:00)
[2020-06-17] MEDS: Furosemide 20 MG TABLET PO (12:57)
[2020-06-17] MEDS: hydrALAZINE HCl 25 MG TABLET PO ×2 (15:24→21:01)
[2020-06-17] MEDS: carvediloL 3.125 MG TABLET PO (21:01)
[2020-06-17 21:27] LABS: Legionella Ag Urine Not Detected (Not Detected)
[2020-06-18] VITALS (12 sets, daily range): BP systolic 131–170; BP diastolic 56–80; PULSE 54–76; RESP 18–20; TEMP 36.3–36.9; O2SAT 95–98
[2020-06-18] MEDS: Doxycycline Hyclate 100 MG in 0.9 % Sodium Chloride 250 ML 166.67 MG IV ×2 (00:16→13:35)
[2020-06-18] MEDS: 0.9 % Sodium Chloride Flush 3 ML SYRINGE IVFLUSH ×4 (00:30→19:56)
[2020-06-18] MEDS: Omeprazole 40 MG CAPSULE.DR PO (06:39)
[2020-06-18 06:52] LABS: Basophils Absolute Auto 0.1 X10*3/uL (0.0-0.2); Basophils Percent Auto 0.7 % (0-2); Eosinophils Absolute Auto 0.6 X10*3/uL (0.0-0.4); Eosinophils Percent Auto 8.1 % (0-4); Hematocrit 26.5 % (37-47); Hemoglobin 8.7 g/dl (12.0-16.0); Imm Gran Pct Auto 1.4 % (0.0-0.4); Lymphocytes Absolute Auto 0.6 X10*3/uL (1.2-4.9); Lymphocytes Percent Auto 8.8 % (20-40); MANUAL DIFF FLAG SCAN; Mean Corpuscular HGB Conc 32.8 g/dl (31.0-35.0); Mean Corpuscular Hemoglobin 30.3 pg (27.0-33.0); Mean Corpuscular Volume 92.3 fL (80-98); Mean Platelet Volume 10.3 fL (9.4-12.3); Monocytes Absolute Auto 0.8 X10*3/uL (0.1-1.2); Monocytes Percent Auto 11.1 % (2-11); Neutrophils Absolute Auto 4.9 X10*3/uL (2.0-8.3); Neutrophils Percent Auto 69.9 % (45-73); Platelet Count 225 X10*3/uL (160-400); Red Blood Count 2.87 X10*6/uL (4.20-5.50); Red Cell Distribution Width 12.5 % (11.0-16.0); SCAN SMEAR FLAG 1
[2020-06-18 07:17] LABS: Anion Gap 11 (12-20); Blood Urea Nitrogen 30 mg/dL (9-16); Calcium 7.9 mg/dL (8.4-10.2); Carbon Dioxide 29 mmol/L (22-29); Chloride 101 mmol/L (96-108); Creatinine Clr Calc Pharmacy 54.1; Estimated Glomerular Filt Rate > 60; Glucose Fasting 100 mg/dL (60-99); Potassium 3.2 mmol/l (3.3-5.1); Sodium 138 mmol/L (135-145)
[2020-06-18 07:29] LABS: TSH reflex Free T4 5.31 mIU/mL (0.32-4.0)
[2020-06-18 07:43] LABS: SLIDE REVIEW VERIFIED
[2020-06-18 08:18] LABS: Free T4 (Free Thyroxine) 0.92 ng/dL (0.71-1.85)
[2020-06-18] MEDS: hydrALAZINE HCl 25 MG TABLET PO (08:55)
[2020-06-18] MEDS: Docusate Sodium 100 MG CAPSULE PO ×2 (08:55→19:56)
[2020-06-18] MEDS: predniSONE 10 MG TABLET 30 MG PO (08:55)
[2020-06-18] MEDS: NIFEdipine ER 60 MG TAB.ER.24 PO (08:56)
[2020-06-18] MEDS: Cholecalciferol (Vitamin D3) 25 MCG TABLET 50 MCG PO (08:56)
[2020-06-18] MEDS: Ascorbic Acid 500 MG TABLET PO ×2 (08:56→19:54)
[2020-06-18] MEDS: Multivitamin TABLET 1 TAB PO (08:56)
[2020-06-18] MEDS: carvediloL 3.125 MG TABLET PO ×2 (08:57→19:54)
[2020-06-18] MEDS: Furosemide 20 MG TABLET PO (08:57)
[2020-06-18] MEDS: Nitroglycerin 2 % Oint 1 GM Packet 1 INCH TRANSDERMA (08:58)
--- NOTE | 2020-06-18 10:21 | P.PNIM_ITS ---
Subjective Subjective Date of Service: 06/18/20 Interval History: sob, but much better Cardiovascular Cardiovascular: Reports no additional cardiovascular complaints Gastrointestinal Gastrointestinal: Reports no additional gastrointestinal complaints Physical Exam Vital Signs: Vital Signs: Last Vital Signs Temp 98.3 F 06/18/20 07:43 Pulse 54 06/18/20 08:57 Resp 18 06/18/20 07:43 BP 170/80 H 06/18/20 08:57 Pulse Ox 97 06/18/20 07:43 Body Mass Index 29.9 General: AO X 3, no acute distress Resp: CTA bilateral CVS: S1,S2,RRR GI: soft, non tender, non distended Neuro: motor grossly intact Psych: appropriate affect Objective Data Current Medications Generic Name Dose Route Start Last Admin Trade Name Freq PRN Reason Stop Dose Admin Acetaminophen 650 mg 06/14/20 12:18 Acetaminophen 325 Mg Tablet PO Q6H PRN Pain, Mild (Pain Scale 1-3) Albuterol/Ipratropium 3 ml 06/14/20 20:00 06/18/20 08:32 Albuterol/Iprat 2.5/0.5mg 3 Ml Ampul.Neb INHALE Not Given RQ6H WHILE AWAKE MICAELA Ascorbic Acid 500 mg 06/14/20 21:00 06/18/20 08:56 Ascorbic Acid 500 Mg Tablet PO 500 mg BID MICAELA Administration Carvedilol 3.125 mg 06/16/20 21:00 06/18/20 08:57 Carvedilol 3.125 Mg Tablet PO 3.125 mg BID MICAELA Administration Protocol Docusate Sodium 100 mg 06/14/20 21:00 06/18/20 08:55 Docusate Sodium 100 Mg Capsule PO 100 mg BID MICAELA Administration Enoxaparin Sodium 40 mg 06/14/20 13:00 06/17/20 12:51 Enoxaparin Sodium 40 Mg/0.4 Ml Syringe SUBCUT 40 mg Q24H MICAELA Administration Furosemide 20 mg 06/17/20 11:45 06/18/20 08:57 Furosemide 20 Mg Tablet PO 20 mg DAILY MICAELA Administration Protocol Hydralazine HCl 25 mg 06/14/20 15:00 06/18/20 08:55 Hydralazine Hcl 25 Mg Tablet PO 25 mg TID MICAELA Administration Protocol Doxycycline Hyclate 100 mg/ 250 mls @ 166.67 mls/hr 06/14/20 13:00 06/18/20 05:15 Sodium Chloride IV Infused Q12H MICAELA Infusion Multivitamins/Vitamin C 1 tab 06/15/20 09:00 06/18/20 08:56 Multivitamin Tablet PO 1 tab DAILY MICAELA Administration Nifedipine 60 mg 06/15/20 09:00 06/18/20 08:56 Nifedipine Er 60 Mg Tab.Er.24 PO 60 mg DAILY MICAELA Administration Protocol Nitroglycerin 1 inch 06/15/20 14:00 06/18/20 08:58 Nitroglycerin 2 % Oint 1 Gm Packet TRANSDERMA 1 inch RQ6H WHILE AWAKE MICAELA Administration Omeprazole 40 mg 06/15/20 06:30 06/18/20 06:39 Omeprazole 40 Mg Capsule. PO 40 mg DAILY@0630 [facility] Administration Ondansetron HCl 4 mg 06/14/20 12:18 06/16/20 23:13 Ondansetron Hcl 4 Mg/2 Ml Vial IVPUSH 4 mg Q8H PRN Administration Nausea and Vomiting Pharmacy Consult 1 each 06/14/20 08:13 Consult Rx Perform Med Rec MISCELLANE ONCE PRN Consult order Prednisone 30 mg 06/17/20 09:00 06/18/20 08:55 Prednisone 10 Mg Tablet PO 30 mg DAILY MICAELA Administration Sodium Chloride 3 ml 06/14/20 16:00 06/18/20 09:09 0.9 % Sodium Chloride Flush 3 Ml Syringe IVFLUSH 3 ml QSHIFT MICAELA Administration Vitamin D 50 mcg 06/15/20 09:00 06/18/20 08:56 Cholecalciferol (Vitamin D3) 25 Mcg Tablet PO 50 mcg DAILY MICAELA Administration Labs CBC & Chem 7: 06/18/20 05:46 06/18/20 05:46 Microbiology Microbiology Results: Microbiology 06/14/20 05:42 Blood - Venous Blood Culture - Preliminary No growth after 48 hours. 06/14/20 05:38 Blood - Venous Blood Culture - Preliminary No growth after 48 hours. Assessment and Plan (1) Pneumonia: Status: Acute (2) Sepsis: Status: Acute Assessment and Plan: 85 yo F with a PMH of HTN, HLD, GERD, Colon Ca - s/p resection, prior subarachnoid bleed who presented to the hospital with complaints of progressive shortness of breath, subjective fevers, myalgias. Sepsis secondary to pneumonia - viral vs bacterial complicated by acute hypoxic respiratory failure Continue doxycycline viral panel negative, follow-up cultures follow-up urine Legionella, repeat covid negative wean O2 as tolerated, continue prednisone acute on chronic CHF, diastolic status post 40 mg IV Lasix x2 cardiology following HTN Coreg decreased, hydralazine, nifedipine HLD statin GERD PPI DVT pptx, lovenox
--- NOTE | 2020-06-18 12:33 | P.PNCA_ITS ---
Subjective Subjective Date of Service: 06/18/20 Interval history: Slowly improving. Breathing is better. Still hypoxic. Review of Systems Review of Systems Shortness of breath Yes all other systems are reviewed and are negative Physical Exam Vital Signs: Last Vital Signs Temp 97.6 F 06/18/20 11:28 Pulse 54 06/18/20 11:28 Resp 18 06/18/20 11:28 BP 140/68 H 06/18/20 11:28 Pulse Ox 98 06/18/20 11:28 Body Mass Index 29.9 GENERAL APPEARANCE: no distress HEENT: unremarkable. HEAD: normocephalic, atraumatic. NECK/THYROID: no carotid bruit, no significant JVD today. SKIN: no suspicious lesions, warm and dry. HEART: systolic murmur aortic area, regular rate and rhythm, S1, S2 normal. LUNGS: clear to auscultation. Diminished breath sounds bilaterally. ABDOMEN: normal, bowel sounds present, soft, nontender, nondistended. EXTREMITIES: no clubbing, cyanosis, or edema. PERIPHERAL PULSES: equal. NEUROLOGIC: nonfocal, alert and oriented. PSYCH: mood/affect full range. Results Labs and Meds Result diagrams: 06/18/20 05:46 06/18/20 05:46 Lab results: Laboratory Results - last 24 hr 06/14/20 06/18/20 06/18/20 13:20 05:46 05:46 WBC 7.0 RBC 2.87 L Hgb 8.7 L Hct 26.5 L MCV 92.3 MCH 30.3 MCHC 32.8 RDW 12.5 Plt Count 225 MPV 10.3 Immature Gran % (Auto) 1.4 H Neut % (Auto) 69.9 Lymph % (Auto) 8.8 L [place] % (Auto) 11.1 H Eos % (Auto) 8.1 H Baso % (Auto) 0.7 Lymph # (Auto) 0.6 L [place] # (Auto) 0.8 Eos # (Auto) 0.6 H Baso # (Auto) 0.1 Abs Immat Gran (auto) 0.10 H Absolute Neuts (auto) 4.9 Absolute Nucleated RBC 0.000 Nucleated RBC % (auto) 0.0 Smear Tech's Comments VERIFIED Sodium 138 Potassium 3.2 L Chloride 101 Carbon Dioxide 29 Anion Gap 11 L BUN 30 H Creatinine 0.80 Estim Creat Clear Calc 54.1 Estimated GFR > 60 Fasting Glucose 100 H Calcium 7.9 L TSH 5.31 H Free T4 0.92 Ur L.pneumophila Ag Not Detected Progress Note: A&P Assessment and plan (1) CHF (congestive heart failure): Status: Acute (2) Sepsis: Status: Acute (3) Pneumonia: Status: Acute Assessment and Plan: Pleasant 85-year-old female who is admitted with sepsis and pneumonia. She also had some congestive heart failure. She was diuresed with some improvement in her dyspnea but she continues to be short of breath and hypoxic. I think the main issue is viral pneumonia. She is slowly improving from that. She is still oxygen dependent. She does not look clinically overloaded anymore. She can stay on 20 mg p.o. Lasix. Her blood pressure is elevated and I am increasing her hydralazine to 50 mg 3 times a day. I think the nitro paste can be stopped. Continue the carvedilol and the nifedipine at the same doses right now. Signing off. Thank you for allowing me to participate in the care of your patient. Please feel free to contact me if you have any questions. Fall Risk Details Current Medications: Current Medications Generic Name Dose Route Start Last Admin Trade Name Freq PRN Reason Stop Dose Admin Acetaminophen 650 mg 06/14/20 12:18 Acetaminophen 325 Mg Tablet PO Q6H PRN Pain, Mild (Pain Scale 1-3) Albuterol/Ipratropium 3 ml 06/14/20 20:00 06/18/20 08:32 Albuterol/Iprat 2.5/0.5mg 3 Ml Ampul.Neb INHALE Not Given RQ6H WHILE AWAKE MICAELA Ascorbic Acid 500 mg 06/14/20 21:00 06/18/20 08:56 Ascorbic Acid 500 Mg Tablet PO 500 mg BID MICAELA Administration Carvedilol 3.125 mg 06/16/20 21:00 06/18/20 08:57 Carvedilol 3.125 Mg Tablet PO 3.125 mg BID MICAELA Administration Protocol Docusate Sodium 100 mg 06/14/20 21:00 06/18/20 08:55 Docusate Sodium 100 Mg Capsule PO 100 mg BID MICAELA Administration Enoxaparin Sodium 40 mg 06/14/20 13:00 06/17/20 12:51 Enoxaparin Sodium 40 Mg/0.4 Ml Syringe SUBCUT 40 mg Q24H MICAELA Administration Furosemide 20 mg 06/17/20 11:45 06/18/20 08:57 Furosemide 20 Mg Tablet PO 20 mg DAILY MICAELA Administration Protocol Hydralazine HCl 50 mg 06/18/20 15:00 Hydralazine Hcl 25 Mg Tablet PO TID MICAELA Protocol Doxycycline Hyclate 100 mg/ 250 mls @ 166.67 mls/hr 06/14/20 13:00 06/18/20 05:15 Sodium Chloride IV Infused Q12H MICAELA Infusion Multivitamins/Vitamin C 1 tab 06/15/20 09:00 06/18/20 08:56 Multivitamin Tablet PO 1 tab DAILY MICAELA Administration Nifedipine 60 mg 06/15/20 09:00 06/18/20 08:56 Nifedipine Er 60 Mg Tab.Er.24 PO 60 mg DAILY MICAELA Administration Protocol Omeprazole 40 mg 06/15/20 06:30 06/18/20 06:39 Omeprazole 40 Mg Capsule.Dr PO 40 mg DAILY@0630 MICAELA Administration Ondansetron HCl 4 mg 06/14/20 12:18 06/16/20 23:13 Ondansetron Hcl 4 Mg/2 Ml Vial IVPUSH 4 mg Q8H PRN Administration Nausea and Vomiting Pharmacy Consult 1 each 06/14/20 08:13 Consult Rx Perform Med Rec MISCELLANE ONCE PRN Consult order Prednisone 30 mg 06/17/20 09:00 06/18/20 08:55 Prednisone 10 Mg Tablet PO 30 mg DAILY MICAELA Administration Sodium Chloride 3 ml 06/14/20 16:00 06/18/20 09:09 0.9 % Sodium Chloride Flush 3 Ml Syringe IVFLUSH 3 ml QSHIFT MICAELA Administration Vitamin D 50 mcg 06/15/20 09:00 06/18/20 08:56 Cholecalciferol (Vitamin D3) 25 Mcg Tablet PO 50 mcg DAILY MICAELA Administration Time Spent With Patient Time: Total time spent is greater than 50% in coordination of care (as documented) at patient's floor/unit and/or counseling patient: Time with patient: less than 15 minutes
[2020-06-18] MEDS: Enoxaparin Sodium 40 MG/0.4 ML SYRINGE SUBCUT (13:37)
[2020-06-18] MEDS: hydrALAZINE HCl 25 MG TABLET 50 MG PO ×2 (14:55→19:55)
[2020-06-19] VITALS (13 sets, daily range): BP systolic 102–166; BP diastolic 41–78; PULSE 67–77; RESP 18–20; TEMP 36.2–36.9; O2SAT 93–96
[2020-06-19] MEDS: Doxycycline Hyclate 100 MG in 0.9 % Sodium Chloride 250 ML 166.67 MG IV ×2 (00:06→13:39)
[2020-06-19] MEDS: Albuterol/Iprat 2.5/0.5MG 3 ML AMPUL.NEB INHALE ×2 (00:30→00:37)
[2020-06-19] MEDS: Cholecalciferol (Vitamin D3) 25 MCG TABLET 50 MCG PO (08:41)
[2020-06-19] MEDS: Ascorbic Acid 500 MG TABLET PO ×2 (08:42→22:10)
[2020-06-19] MEDS: Omeprazole 40 MG CAPSULE.DR PO (08:42)
[2020-06-19] MEDS: Multivitamin TABLET 1 TAB PO (08:43)
[2020-06-19] MEDS: carvediloL 3.125 MG TABLET PO ×2 (08:43→22:19)
[2020-06-19] MEDS: Docusate Sodium 100 MG CAPSULE PO (08:43)
[2020-06-19] MEDS: hydrALAZINE HCl 25 MG TABLET 50 MG PO ×3 (08:43→22:10)
[2020-06-19] MEDS: NIFEdipine ER 60 MG TAB.ER.24 PO (08:44)
[2020-06-19] MEDS: Furosemide 20 MG TABLET PO (08:44)
[2020-06-19] MEDS: predniSONE 10 MG TABLET 30 MG PO (08:44)
[2020-06-19] MEDS: 0.9 % Sodium Chloride Flush 3 ML SYRINGE IVFLUSH ×3 (08:45→22:20)
--- NOTE | 2020-06-19 10:38 | P.PNIM_ITS ---
Subjective Subjective Date of Service: 06/19/20 Interval History: tired, but slowly improving Cardiovascular Cardiovascular: Reports no additional cardiovascular complaints Gastrointestinal Gastrointestinal: Reports no additional gastrointestinal complaints Physical Exam Vital Signs: Vital Signs: Last Vital Signs Temp 97.1 F 06/19/20 08:00 Pulse 69 06/19/20 08:44 Resp 18 06/19/20 08:00 BP 150/70 H 06/19/20 08:44 Pulse Ox 95 06/19/20 08:00 Body Mass Index 29.9 General: AO X 3, no acute distress Resp: CTA bilateral CVS: S1,S2,RRR GI: soft, non tender, non distended Neuro: motor grossly intact Psych: appropriate affect Objective Data Current Medications Generic Name Dose Route Start Last Admin Trade Name Freq PRN Reason Stop Dose Admin Acetaminophen 650 mg 06/14/20 12:18 Acetaminophen 325 Mg Tablet PO Q6H PRN Pain, Mild (Pain Scale 1-3) Albuterol/Ipratropium 3 ml 06/14/20 20:00 06/19/20 07:29 Albuterol/Iprat 2.5/0.5mg 3 Ml Ampul.Neb INHALE Not Given RQ6H WHILE AWAKE MICAELA Ascorbic Acid 500 mg 06/14/20 21:00 06/19/20 08:42 Ascorbic Acid 500 Mg Tablet PO 500 mg BID MICAELA Administration Carvedilol 3.125 mg 06/16/20 21:00 06/19/20 08:43 Carvedilol 3.125 Mg Tablet PO 3.125 mg BID MICAELA Administration Protocol Docusate Sodium 100 mg 06/14/20 21:00 06/19/20 08:43 Docusate Sodium 100 Mg Capsule PO 100 mg BID MICAELA Administration Enoxaparin Sodium 40 mg 06/14/20 13:00 06/18/20 13:37 Enoxaparin Sodium 40 Mg/0.4 Ml Syringe SUBCUT 40 mg Q24H MICAELA Administration Furosemide 20 mg 06/17/20 11:45 06/19/20 08:44 Furosemide 20 Mg Tablet PO 20 mg DAILY MICAELA Administration Protocol Hydralazine HCl 50 mg 06/18/20 15:00 06/19/20 08:43 Hydralazine Hcl 25 Mg Tablet PO 50 mg TID MICAELA Administration Protocol Doxycycline Hyclate 100 mg/ 250 mls @ 166.67 mls/hr 06/14/20 13:00 06/19/20 01:51 Sodium Chloride IV Infused Q12H [facility] Infusion Multivitamins/Vitamin C 1 tab 06/15/20 09:00 06/19/20 08:43 Multivitamin Tablet PO 1 tab DAILY MICAELA Administration Nifedipine 90 mg 06/20/20 09:00 Nifedipine Er 90 Mg Tab.Er.24 PO DAILY [facility] Protocol Omeprazole 40 mg 06/15/20 06:30 06/19/20 08:42 Omeprazole 40 Mg Capsule.Dr PO 40 mg DAILY@0630 MICAELA Administration Ondansetron HCl 4 mg 06/14/20 12:18 06/16/20 23:13 Ondansetron Hcl 4 Mg/2 Ml Vial IVPUSH 4 mg Q8H PRN Administration Nausea and Vomiting Pharmacy Consult 1 each 06/14/20 08:13 Consult Rx Perform Med Rec MISCELLANE ONCE PRN Consult order Prednisone 30 mg 06/17/20 09:00 06/19/20 08:44 Prednisone 10 Mg Tablet PO 30 mg DAILY MICAELA Administration Sodium Chloride 3 ml 06/14/20 16:00 06/19/20 08:45 0.9 % Sodium Chloride Flush 3 Ml Syringe IVFLUSH 3 ml QSHIFT [facility] Administration Vitamin D 50 mcg 06/15/20 09:00 06/19/20 08:41 Cholecalciferol (Vitamin D3) 25 Mcg Tablet PO 50 mcg DAILY MICAELA Administration Labs CBC & Chem 7: 06/18/20 05:46 06/18/20 05:46 Microbiology Microbiology Results: Microbiology 06/14/20 05:42 Blood - Venous Blood Culture - Final No growth after 5 days. 06/14/20 05:38 Blood - Venous Blood Culture - Final No growth after 5 days. Assessment and Plan (1) Pneumonia: Status: Acute (2) Sepsis: Status: Acute Assessment and Plan: 85 yo F with a PMH of HTN, HLD, GERD, Colon Ca - s/p resection, prior subarachnoid bleed who presented to the hospital with complaints of progressive shortness of breath, subjective fevers, myalgias. Sepsis secondary to pneumonia POA - viral vs bacterial complicated by acute hypoxic respiratory failure Continue doxycycline 6/7 viral panel negative, urine Legionella not detected, repeat covid negative wean O2 as tolerated, continue prednisone goal would be to wean off o2 prior to discharge, however, if recovery is slow and patient clearly continues to improve may need to go home on oxygen for some time. acute on chronic CHF, diastolic, likely due to above status post 40 mg IV Lasix x2, now on maintenance 20mg daily, cardiology following HTN Coreg decreased, hydralazine, nifedipine HLD statin GERD PPI DVT pptx, lovenox
[2020-06-19] MEDS: Enoxaparin Sodium 40 MG/0.4 ML SYRINGE SUBCUT (13:39)
[2020-06-19] MEDS: NIFEdipine ER 30 MG TAB.ER.24 PO (13:40)
[2020-06-20] MEDS: Acetaminophen 325 MG TABLET 650 MG PO (00:56)
[2020-06-20] MEDS: Doxycycline Hyclate 100 MG in 0.9 % Sodium Chloride 250 ML 166.67 MG IV (01:30)
[2020-06-20 02:49] VITALS: BP 136/61; PULSE 63; RESP 20; TEMP 36.9; O2SAT 95
[2020-06-20 06:23] LABS: MANUAL DIFF FLAG NO
[2020-06-20 06:32] LABS: Basophils Absolute Auto 0.1 X10*3/uL (0.0-0.2); Basophils Percent Auto 0.8 % (0-2); Eosinophils Absolute Auto 0.8 X10*3/uL (0.0-0.4); Eosinophils Percent Auto 6.6 % (0-4); Hematocrit 30.7 % (37-47); Hemoglobin 9.9 g/dl (12.0-16.0); Imm Gran Abs Auto 0.25 X10*3/uL (0.00-0.03); Imm Gran Pct Auto 2.1 % (0.0-0.4); Lymphocytes Absolute Auto 0.7 X10*3/uL (1.2-4.9); Lymphocytes Percent Auto 6.1 % (20-40); Mean Corpuscular HGB Conc 32.2 g/dl (31.0-35.0); Mean Corpuscular Hemoglobin 29.6 pg (27.0-33.0); Mean Corpuscular Volume 91.6 fL (80-98); Monocytes Percent Auto 8.6 % (2-11); Neutrophils Absolute Auto 8.9 X10*3/uL (2.0-8.3); Neutrophils Percent Auto 75.8 % (45-73); Platelet Count 341 X10*3/uL (160-400); Red Blood Count 3.35 X10*6/uL (4.20-5.50); Red Cell Distribution Width 12.8 % (11.0-16.0); White Blood Count 11.8 X10*3/uL (4.8-10.8)
[2020-06-20 07:08] LABS: Anion Gap 14 (12-20); Blood Urea Nitrogen 27 mg/dL (9-16); Calcium 8.4 mg/dL (8.4-10.2); Carbon Dioxide 29 mmol/L (22-29); Chloride 100 mmol/L (96-108); Creatinine Clr Calc Pharmacy 54.8; Estimated Glomerular Filt Rate > 60; Glucose Fasting 105 mg/dL (60-99); Magnesium 1.9 mg/dL (1.6-2.6); Potassium 3.2 mmol/l (3.3-5.1); Sodium 140 mmol/L (135-145)
[2020-06-20 07:19] VITALS: BP 161/67; PULSE 75; RESP 20; TEMP 36.6; O2SAT 94
[2020-06-20] MEDS: Docusate Sodium 100 MG CAPSULE PO (08:45)
[2020-06-20] MEDS: Furosemide 20 MG TABLET PO (08:46)
[2020-06-20] MEDS: carvediloL 3.125 MG TABLET PO (08:46)
[2020-06-20] MEDS: hydrALAZINE HCl 25 MG TABLET 50 MG PO ×2 (08:46→15:41)
[2020-06-20] MEDS: 0.9 % Sodium Chloride Flush 3 ML SYRINGE IVFLUSH (08:47)
[2020-06-20] MEDS: predniSONE 10 MG TABLET 30 MG PO (08:47)
--- NOTE | 2020-06-20 08:51 | MHC.CM.PN ---
DP Patient agrees to STR. She has provided preferences. Referrals have been sent to the facilities chosen. Transportation via [facility] follow.
[2020-06-20] MEDS: NIFEdipine ER 90 MG TAB.ER.24 PO (08:55)
[2020-06-20 11:06] VITALS: BP 136/70; PULSE 69; RESP 20; TEMP 36.6; O2SAT 96
--- NOTE | 2020-06-20 11:38 | P.PNIM_ITS ---
Subjective Subjective Date of Service: 06/20/20 Interval History: seen and examined feeling weak reports minimal improvement overall thinks she may need str General - no fevers or chills, weakness Cardiovascular - no chest pain Respiratory - sob improved Abdominal- no abdominal pain, nausea, vomiting, diarrhea Physical Exam Vital Signs: Vital Signs: Last Vital Signs Temp 97.9 F 06/20/20 11:06 Pulse 69 06/20/20 11:06 Resp 20 06/20/20 11:06 BP 136/70 06/20/20 11:06 Pulse Ox 96 06/20/20 11:06 Body Mass Index 29.9 General - no acute distress, appears comfortable but tired Cardiovascular - regular rate and rhythm, S1-S2 Lungs - normal respiratory effort, clear to auscultation bilaterally, no wheezing Abdomen - soft, nontender, no rebound or guarding Extremities - no edema bilaterally Neuro - awake and alert, no focal deficits Objective Data Current Medications Generic Name Dose Route Start Last Admin Trade Name Freq PRN Reason Stop Dose Admin Acetaminophen 650 mg 06/14/20 12:18 06/20/20 00:56 Acetaminophen 325 Mg Tablet PO 650 mg Q6H PRN Administration Pain, Mild (Pain Scale 1-3) Albuterol/Ipratropium 3 ml 06/14/20 20:00 06/20/20 07:32 Albuterol/Iprat 2.5/0.5mg 3 Ml Ampul.Neb INHALE Not Given RQ6H WHILE AWAKE [facility] Ascorbic Acid 500 mg 06/14/20 21:00 06/20/20 08:47 Ascorbic Acid 500 Mg Tablet PO Not Given BID MICAELA Carvedilol 3.125 mg 06/16/20 21:00 06/20/20 08:46 Carvedilol 3.125 Mg Tablet PO 3.125 mg BID MICAELA Administration Protocol Docusate Sodium 100 mg 06/14/20 21:00 06/20/20 08:45 Docusate Sodium 100 Mg Capsule PO 100 mg BID MICAELA Administration Enoxaparin Sodium 40 mg 06/14/20 13:00 06/19/20 13:39 Enoxaparin Sodium 40 Mg/0.4 Ml Syringe SUBCUT 40 mg Q24H MICAELA Administration Furosemide 20 mg 06/17/20 11:45 06/20/20 08:46 Furosemide 20 Mg Tablet PO 20 mg DAILY MICAELA Administration Protocol Hydralazine HCl 50 mg 06/18/20 15:00 06/20/20 08:46 Hydralazine Hcl 25 Mg Tablet PO 50 mg TID [facility] Administration Protocol Doxycycline Hyclate 100 mg/ 250 mls @ 166.67 mls/hr 06/14/20 13:00 06/20/20 03:33 Sodium Chloride IV Infused Q12H MICAELA Infusion Multivitamins/Vitamin C 1 tab 06/15/20 09:00 06/20/20 08:47 Multivitamin Tablet PO Not Given DAILY MICAELA Nifedipine 90 mg 06/20/20 09:00 06/20/20 08:55 Nifedipine Er 90 Mg Tab.Er.24 PO 90 mg DAILY [facility] Administration Protocol Omeprazole 40 mg 06/15/20 06:30 06/19/20 08:42 Omeprazole 40 Mg Capsule.Dr PO 40 mg DAILY@0630 [facility] Administration Ondansetron HCl 4 mg 06/14/20 12:18 06/16/20 23:13 Ondansetron Hcl 4 Mg/2 Ml Vial IVPUSH 4 mg Q8H PRN Administration Nausea and Vomiting Pharmacy Consult 1 each 06/14/20 08:13 Consult Rx Perform Med Rec MISCELLANE ONCE PRN Consult order Potassium Chloride 60 meq 06/20/20 11:37 Potassium Chloride Er 20 Meq Tab.Er.Prt PO 06/20/20 11:38 ONCE ONE Prednisone 30 mg 06/17/20 09:00 06/20/20 08:47 Prednisone 10 Mg Tablet PO 30 mg DAILY [facility] Administration Sodium Chloride 3 ml 06/14/20 16:00 06/20/20 08:47 0.9 % Sodium Chloride Flush 3 Ml Syringe IVFLUSH 3 ml QSHIFT [facility] Administration Vitamin D 50 mcg 06/15/20 09:00 06/20/20 08:47 Cholecalciferol (Vitamin D3) 25 Mcg Tablet PO Not Given DAILY [facility] Labs CBC & Chem 7: 06/20/20 05:28 06/20/20 05:28 Microbiology Microbiology Results: Microbiology 06/14/20 05:42 Blood - Venous Blood Culture - Final No growth after 5 days. 06/14/20 05:38 Blood - Venous Blood Culture - Final No growth after 5 days. Assessment and Plan (1) Sepsis: Status: Acute (2) Pneumonia: Status: Acute Assessment and Plan: This is a 85 yo F with a PMH of HTN, HLD, GERD, Colon Ca - s/p resection, prior subarachnoid bleed who presents to the hospital with complaints of progressive shortness of breath, subjective fevers, myalgias. 1. Sepsis secondary to pneumonia -- viral vs bacterial, hypoxic respiratory failure covid neg x 2, resp path panel negative, urion Lg Ag negative to completed 7 days of doxy, change to PO wean o2 as tolerated stop steroids, completed >5 days 2. Acute on Chronic CHF po lasix daily cardiology on board 3. HTN continue current regime 4. HLD statin 5. GERD PPI 6. Generalized weakness may need STR will get PT evaluation Full Code DVT pptx, lovenox
[2020-06-20] MEDS: Enoxaparin Sodium 40 MG/0.4 ML SYRINGE SUBCUT (12:53)
[2020-06-20] MEDS: Potassium Chloride ER 20 MEQ TAB.ER.PRT 60 MEQ PO (12:53)
--- NOTE | 2020-06-20 14:00 | MHC.CM.PN ---
IMM 06/20/20 FEMALE DX SEPSIS DYSPNEA. PATIENT HAS ACCEPTED A BED OFFER FROM [facility]. TRANSPORT BOOKED 4PM.
[2020-06-20 15:21] VITALS: BP 154/81; PULSE 72; RESP 18; TEMP 36.4; O2SAT 95
[2020-06-20 15:40] LABS: COVID-19 Test Negative (Negative); IDNOW Serial# 9DD0AD1C
--- NOTE | 2020-06-20 15:44 | P.DS_ITS ---
DS: Providers Provider Date of admission: 06/14/20 10:12 Primary care physician: Unknown Physician Consults: 06/14/20 10:15 Consult to Infectious Diseases Routine Consulting Provider: Cece Vera Reason for consultation: pneumonia - viral vs bacterial 06/14/20 12:18 Consult to Cardiology Routine Consulting Provider: Andry Morse Reason for consultation: elevated bnp and trop-i, ? due to sepsis vs cardiac DS: Diagnosis Discharge Diagnosis (1) Sepsis: Status: Acute (2) Pneumonia: Status: Acute DS: Medications Discharge Medications Home Medications: Home Medications Medication Instructions Recorded Confirmed ascorbic acid (vitamin C) 500 mg PO BID 06/14/20 06/14/20 cholecalciferol (vitamin D3) 50 mcg PO DAILY 06/14/20 06/14/20 docusate sodium [Colace] 100 mg PO BID 06/14/20 06/14/20 ferrous sulfate 325 mg PO DAILY 06/14/20 06/14/20 multivitamin 1 tab PO DAILY 06/14/20 06/14/20 olmesartan 40 mg PO DAILY 06/14/20 06/14/20 omeprazole 40 mg PO DAILY@0630 06/14/20 06/14/20 simvastatin 40 mg PO BEDTIME 06/14/20 06/14/20 Previous Rx's Medication Instructions Recorded carvedilol 3.125 mg PO BID #60 tab 06/20/20 doxycycline hyclate 100 mg PO Q12H #2 tab 06/20/20 furosemide 20 mg PO DAILY 30 Days #30 tab 06/20/20 hydralazine 50 mg PO TID #90 tab 06/20/20 nifedipine 90 mg PO DAILY #30 tab 06/20/20 DS: Summary Hospital Course Hospital Course: HPI: This is a 85-year-old female with a past medical history of hypertension, hyperlipidemia, colon cancer status post resection in 2002 who presents to the hospital with complaints of progressive shortness of breath which he noticed for the last 24 hours. She reports that 2 days prior she started noticing generalized aches and pains. She reports that she measured her temperature with a temporal/forehead thermometer which showed that she was afebrile but she did report feeling feverish. She denies any cough. She denies rhinorrhea, sore throat, ear aches. She denies any known sick contacts, particularly does with COVID-19. She reports that her shortness of breath progressed to the point where she became tachypneic and so she presented to the emergency room. In the emergency room, she was noted to be tachypneic, tachycardic and febrile up to 101. her chest x-ray showed patchy bilateral airspace opacities. She was given albuterol updrafts, Solu-Medrol, Tylenol, fluid bolus and Levaquin. Hospital Course Patient presented with sepsis secondary to presumed respiratory infection. She was empirically started on doxycycline and was ruled out for aytpical organisms (negative respiratory pathogen panel) + COVID 19 (which was rechecked few days later and remained negative) + legionella (negative urine Ag). Her clinical picture was also suggestive of CHF, possibly secondary to her infectious process. She was given iv diuresis for a few days and changed to oral lasix upon discharge. Her echo showed normal LV function. Patients blood pressure was labile and required multiple adjustments -- see details below. Patient continued to improve overall but do to her debility she will be sent to SNF for further treatment. She is also requiring minmal O2 at the time of d/c, 2L which hopefully can be weaned prior to discharge from SNF. Time Spent with Patient Time attestation: Total time spent providing and/or coordinating discharge services: Physical Exam Vital Signs: Vital Signs: Last Vital Signs Temp 97.6 F 06/20/20 15:21 Pulse 72 06/20/20 15:21 Resp 18 06/20/20 15:21 BP 154/81 H 06/20/20 15:21 Pulse Ox 95 06/20/20 15:21 Body Mass Index 29.9 General - no acute distress, appears comfortable Cardiovascular - regular rate and rhythm, S1-S2 Lungs - normal respiratory effort, clear to auscultation bilaterally, no wheezing Abdomen - soft, nontender, no rebound or guarding Extremities - no edema bilaterally Neuro - awake and alert, no focal deficits DS: Data Data Completed and Pending Labs on day of discharge: Laboratory Last Values WBC 11.8 X10*3/uL (4.8-10.8) H 06/20/20 05:28 RBC 3.35 X10*6/uL (4.20-5.50) L 06/20/20 05:28 Hgb 9.9 g/dl (12.0-16.0) L 06/20/20 05:28 Hct 30.7 % (37-47) L 06/20/20 05:28 MCV 91.6 fL (80-98) 06/20/20 05:28 MCH 29.6 pg (27.0-33.0) 06/20/20 05:28 MCHC 32.2 g/dl (31.0-35.0) 06/20/20 05:28 RDW 12.8 % (11.0-16.0) 06/20/20 05:28 Plt Count 341 X10*3/uL (160-400) D 06/20/20 05:28 MPV 10.0 fL (9.4-12.3) 06/20/20 05:28 Immature Gran % (Auto) 2.1 % (0.0-0.4) H 06/20/20 05:28 Neut % (Auto) 75.8 % (45-73) H 06/20/20 05:28 Lymph % (Auto) 6.1 % (20-40) L 06/20/20 05:28 Woodruff % (Auto) 8.6 % (2-11) 06/20/20 05:28 Eos % (Auto) 6.6 % (0-4) H 06/20/20 05:28 Baso % (Auto) 0.8 % (0-2) 06/20/20 05:28 Lymph # (Auto) 0.7 X10*3/uL (1.2-4.9) L 06/20/20 05:28 Woodruff # (Auto) 1.0 X10*3/uL (0.1-1.2) 06/20/20 05:28 Eos # (Auto) 0.8 X10*3/uL (0.0-0.4) H 06/20/20 05:28 Baso # (Auto) 0.1 X10*3/uL (0.0-0.2) 06/20/20 05:28 Abs Immat Gran (auto) 0.25 X10*3/uL (0.00-0.03) H 06/20/20 05:28 Absolute Neuts (auto) 8.9 X10*3/uL (2.0-8.3) H 06/20/20 05:28 Absolute Nucleated RBC 0.000 X10*3/uL (0.0-0.012) 06/20/20 05:28 Nucleated RBC % (auto) 0.0 /100WBC (0.0-0.2) 06/20/20 05:28 Smear Tech's Comments VERIFIED 06/18/20 05:46 PT 12.8 SEC (10.8-13.0) 06/14/20 05:38 INR 1.1 (0.9-1.1) 06/14/20 05:38 APTT 33.8 SEC (24.1-38.0) 06/14/20 05:38 D-Dimer 692 NG/ML 06/15/20 05:32 Sodium 140 mmol/L (135-145) 06/20/20 05:28 Potassium 3.2 mmol/l (3.3-5.1) L 06/20/20 05:28 Chloride 100 mmol/L (96-108) 06/20/20 05:28 Carbon Dioxide 29 mmol/L (22-29) 06/20/20 05:28 Anion Gap 14 (12-20) 06/20/20 05:28 BUN 27 mg/dL (9-16) H 06/20/20 05:28 Creatinine 0.79 mg/dL (0.5-1.4) 06/20/20 05:28 Estim Creat Clear Calc 54.8 06/20/20 05:28 Estimated GFR > 60 06/20/20 05:28 Random Glucose 113 mg/dL (60-115) 06/15/20 05:32 Fasting Glucose 105 mg/dL (60-99) H 06/20/20 05:28 Lactic Acid 1.1 mmol/L (0.5-2.0) 06/14/20 05:38 Calcium 8.4 mg/dL (8.4-10.2) D 06/20/20 05:28 Magnesium 1.9 mg/dL (1.6-2.6) 06/20/20 05:28 Ferritin 389 ng/mL (10-250) H 06/14/20 05:38 Total Bilirubin 0.5 mg/dL (0.0-1.0) 06/15/20 05:32 Direct Bilirubin 0.4 mg/dL (0.0-0.5) 06/15/20 05:32 AST 45 U/L (5-31) H D 06/15/20 05:32 ALT 111 U/L (0-31) H 06/15/20 05:32 Alkaline Phosphatase 121 U/L (39-117) H D 06/15/20 05:32 Lactate Dehydrogenase 309 U/L (122-220) H 06/14/20 05:38 Troponin I High Sens 89.7 ng/L (<3.5-17.0) H D 06/14/20 09:00 C-Reactive Protein 9.90 mg/dL (< or = 0.50) H 06/14/20 05:38 B-Natriuretic Peptide 272 pg/mL (<100) H 06/14/20 05:38 Total Protein 5.7 g/dL (6.5-8.0) L D 06/15/20 05:32 Albumin 3.1 g/dL (3.5-5.0) L D 06/15/20 05:32 Lipase 12 U/L (8-78) 06/14/20 05:38 Procalcitonin 1.17 ng/mL 06/15/20 05:32 TSH 5.31 mIU/mL (0.32-4.0) H 06/18/20 05:46 Free T4 0.92 ng/dL (0.71-1.85) 06/18/20 05:46 Respiratory Panel Munoz See Note 06/14/20 05:38 Adenovirus (Rapid PCR) Not Detected (Not Detect.) 06/14/20 05:38 B.pert (TEM-PCR) Not Detected (Not Detect.) 06/14/20 05:38 B.parapertussis DNA PCR Not Detected (Not Detect.) 06/14/20 05:38 C. pneumoniae DNA (PCR) Not Detected (Not Detect.) 06/14/20 05:38 Coronavirus (PCR) NEGATIVE (Negative) 06/14/20 05:38 Coronavirus OC43 (PCR) Not Detected (Not Detect.) 06/14/20 05:38 Coronavirus HKU1 (PCR) Not Detected (Not Detect.) 06/14/20 05:38 Coronavirus 229E (PCR) Not Detected (Not Detect.) 06/14/20 05:38 COVID-19 (TALITA) Negative (Negative) 06/20/20 14:52 COVID-19 Clin Com See Note 06/20/20 14:52 Coronavirus NL63 (PCR) Not Detected (Not Detect.) 06/14/20 05:38 Human Metapneumovir PCR Not Detected (Not Detect.) 06/14/20 05:38 Influenza A (RT-PCR) Not Detected (Not Detect.) 06/14/20 05:38 Influenza Type A (PCR) NEGATIVE (Negative) 06/14/20 05:38 Influenza B (RT-PCR) Not Detected (Not Detect.) 06/14/20 05:38 Influenza Type B (PCR) NEGATIVE (Negative) 06/14/20 05:38 Ur L.pneumophila Ag Not Detected (Not Detected) 06/14/20 13:20 M. pneumoniae (PCR) Not Detected (Not Detect.) 06/14/20 05:38 Parainfluenza 1 (PCR) Not Detected (Not Detect.) 06/14/20 05:38 Parainfluenza 2 (PCR) Not Detected (Not Detect.) 06/14/20 05:38 Parainfluenza 3 (PCR) Not Detected (Not Detect.) 06/14/20 05:38 Parainfluenza 4 (PCR) Not Detected (Not Detect.) 06/14/20 05:38 RSV (PCR) Not Detected (Not Detect.) 06/14/20 05:38 RSV RNA Qual (PCR) NEGATIVE (Negative) 06/14/20 05:38 Entero/Rhino (PCR) Not Detected (Not Detect.) 06/14/20 05:38 SARS-CoV-2 RNA (RT-PCR) Not Detected (Not Detect.) 06/14/20 05:38 Discharge Plan Discharge Patient Disposition: er SNF Referrals: [facility] [Outside] Uri Houston MD [Physician] - Physician,Unknown [Primary Care Provider] - Discharge Medications: New hydralazine 25 mg Tablet 50 mg PO TID Qty: 90 RF: 0 carvedilol 3.125 mg Tablet 3.125 mg PO BID Qty: 60 RF: 0 nifedipine 90 mg Tablet Extended Release 24hr 90 mg PO DAILY Qty: 30 RF: 0 furosemide 20 mg Tablet 20 mg PO DAILY 30 Days Qty: 30 RF: 0 doxycycline hyclate 100 mg Tablet 100 mg PO Q12H Qty: 2 RF: 0 Continued omeprazole 40 mg capsule,delayed release(DR/EC) 40 mg PO DAILY@0630 RF: 0 simvastatin 40 mg tablet 40 mg PO BEDTIME RF: 0 olmesartan 40 mg tablet 40 mg PO DAILY RF: 0 multivitamin Tablet 1 tab PO DAILY RF: 0 ascorbic acid (vitamin C) 500 mg Tablet 500 mg PO BID RF: 0 ferrous sulfate 325 mg (65 mg iron) Tablet 325 mg PO DAILY RF: 0 docusate sodium [Colace] 100 mg Capsule 100 mg PO BID RF: 0 cholecalciferol (vitamin D3) 50 mcg (2,000 unit) Tablet 50 mcg PO DAILY RF: 0 Discontinued hydralazine 25 mg tablet 25 mg PO TID RF: 0 carvedilol 3.125 mg tablet 6.25 mg PO BID RF: 0 nifedipine 60 mg tablet extended release 24hr 60 mg PO DAILY RF: 0 Discharge Orders: Discharge Order (Routine); Ordered 06/20/20 Ordered By: Tad Sands Diet: advance to usual diet Activity on Discharge: As tolerated Visit Report Forms: Patient Portal Discharge page Care Plan Goals: To stay healthy and out of the hospital. To continue getting better at SNF Health Concerns: Pneumonia - take doxycycline for 1 more day CHF - take lasix 20mg daily, follow up with cardiology Plan of Treatment: Pneumonia - take doxycycline for 1 more day CHF - take lasix 20mg daily, follow up with cardiology
== END 2020-06-20 16:47 | disposition skilled nursing facility (03) | DRG 871 ==
LOC: HO.ED 06:53 → HO.IMC 11:07
PROVIDERS: Internal Medicine; Admitting Provider Family Medicine; Emergency Provider Emergency Medicine; Visit Provider Family Medicine
DX: A41.9 Sepsis, unspecified organism (principal); I50.33 Acute on chronic diastolic (congestive) heart failure; J96.01 Acute respiratory failure with hypoxia; J18.9 Pneumonia, unspecified organism; I11.0 Hypertensive heart disease with heart failure; K21.9 Gastro-esophageal reflux disease without esophagitis; I10 Essential (primary) hypertension; Z87.891 Personal history of nicotine dependence; Z20.828 Contact with and (suspected) exposure to other viral communicable diseases; Z79.899 Other long term (current) drug therapy
CPT/HCPCS: 0241U; 36415; 71045; 71275; 80048; 80076; 82728; 83605; 83615; 83690; 83735; 83880; 84145; 84439; 84443; 84484; 85025; 85379; 85610; 85730; 86140; 87040; 87449; 87633; 87635; 93005; 93306; 94640; 96361; 96365; 96366; 96375; 97162; 99284; 99291; J1650; J1940; J1956; J2405; J2930; Q9967

== ENCOUNTER → 2020-07-14 10:11 | Outpatient (BNVA) | payer MEDICARE, OTHER, SELFPAY | PROVIDERS: Visit Provider Internal Medicine Cardiovascular Disease | DX: I50.32 Chronic diastolic (congestive) heart failure (principal); I11.0 Hypertensive heart disease with heart failure | CPT/HCPCS: 99212 ==

== ENCOUNTER 2020-08-09 07:26 | Outpatient (REF) | payer MEDICARE, OTHER, SELFPAY ==
[2020-08-09 08:01] LABS: Glucose Urine UA NEG (NEG); Leukocyte Esterase Urine TRACE (NEG); Nitrite Urine NEG (NEG); PH 5.5 (5.0-8.0); Urine Blood NEG (NEG); Urine Ketones NEG (NEG); Urine Protein NEG (NEG-TRACE)
[2020-08-09 08:03] LABS: Color Urine YELLOW; Hematocrit 35.1 % (37-47); Hemoglobin 11.1 g/dl (12.0-16.0); Mean Corpuscular HGB Conc 31.6 g/dl (31.0-35.0); Mean Corpuscular Hemoglobin 29.8 pg (27.0-33.0); Mean Corpuscular Volume 94.4 fL (80-98); Mean Platelet Volume 9.5 fL (9.4-12.3); Platelet Count 384 X10*3/uL (160-400); Red Blood Count 3.72 X10*6/uL (4.20-5.50); White Blood Count 6.8 X10*3/uL (4.8-10.8)
[2020-08-09 08:04] LABS: Appearance Urine CLEAR
[2020-08-09 08:24] LABS: Bacteria Urine TRACE /LPF; RBC Urine 0-2 /HPF (0); Squamous Epithelial Cell Urine 1+ /LPF
[2020-08-09 08:27] LABS: Alanine Aminotransferase 14 U/L (0-31); Albumin Level 4.1 g/dL (3.5-5.0); Alkaline Phosphatase 64 U/L (39-117); Anion Gap 14 (12-20); Aspartate Amino Transferase 15 U/L (5-31); Bilirubin Total 0.2 mg/dL (0.0-1.0); Blood Urea Nitrogen 47 mg/dL (9-16); Calcium 9.7 mg/dL (8.4-10.2); Carbon Dioxide 26 mmol/L (22-29); Chloride 102 mmol/L (96-108); Cholesterol 251 mg/dL; Estimated Glomerular Filt Rate 22; Glucose Fasting 124 mg/dL (60-99); HDL Cholesterol 74 mg/dL; Iron 76 mcg/dL (30-160); LDL Cholesterol Calculated 154 mg/dl; Magnesium 2.1 mg/dL (1.6-2.6); Percent Iron Saturation 27 % (15-50); Potassium 4.4 mmol/l (3.3-5.1); Sodium 138 mmol/L (135-145); Total Iron Binding Capacity 281 mcg/dL (228-428); Total Protein 7.5 g/dL (6.5-8.0); Triglycerides 117 mg/dL; Unsaturated Iron Binding 205 ug/dL
[2020-08-09 08:46] LABS: Ferritin 133 ng/mL (10-250); Thyroid Stimulating Hormone 4.73 uIU/mL (0.32-4.0)
== END 2020-08-09 07:27 | disposition home or self-care (01) ==
LOC: HO.LAB 07:26
PROVIDERS: PCP Internal Medicine; Visit Provider Internal Medicine
DX: J18.8 Other pneumonia, unspecified organism (principal); I10 Essential (primary) hypertension; R35.1 Nocturia; R94.5 Abnormal results of liver function studies; E78.00 Pure hypercholesterolemia, unspecified; D64.9 Anemia, unspecified
CPT/HCPCS: 36415; 80053; 80061; 81001; 81003; 82728; 83540; 83735; 84443; 85027; 87086

== ENCOUNTER 2020-08-25 12:09 | Outpatient (REF) | payer MEDICARE, OTHER, SELFPAY ==
--- NOTE | ~2020-08-25 | US_ITS ---
EXAMINATION: US RETROPERITONEAL COMPLETE (RENAL) CLINICAL INFORMATION: Chronic renal failure stage IV. COMPARISON: CT abdomen 01/11/2006. TECHNIQUE: Real-time imaging of the kidneys and bladder. FINDINGS: RIGHT KIDNEY: 10.7 x 5.6 x 5.0 cm (SAG x AP x TRV). The kidney is normal in size, contour, and echogenicity. Renal cortical thickness is normal. No calculi or focal parenchymal lesions. No hydronephrosis. Incidental note of a right extrarenal pelvis. LEFT KIDNEY: 9.9 x 5.0 x 4.4 cm (SAG x AP x TRV). The kidney is normal in size, contour, and echogenicity. Renal cortical thickness is normal. No calculi or focal parenchymal lesions. No hydronephrosis. BLADDER: Well distended and normal. Bilateral ureteral jets are demonstrated. Prevoid bladder volume is 325 mL. Postvoid bladder volume is 87.8 mL. US/US retroperitoneal comp IMPRESSION: Normal appearance of the kidneys. Post void bladder residual volume of 87.8 mL..
== END 2020-08-25 12:10 | disposition home or self-care (01) ==
LOC: HO.US 12:09
PROVIDERS: Visit Provider Internal Medicine
DX: N18.4 Chronic kidney disease, stage 4 (severe) (principal)
CPT/HCPCS: 76770

== ENCOUNTER → 2020-09-13 11:09 | Outpatient (BNV) | payer MEDICARE, OTHER, SELFPAY | PROVIDERS: PCP Internal Medicine; Visit Provider Internal Medicine Medical Oncology | DX: Z85.038 Personal history of other malignant neoplasm of large intestine (principal) | CPT/HCPCS: 99213; 99214 ==

== ENCOUNTER → 2020-10-10 10:17 | Outpatient (BNVA) | payer MEDICARE, OTHER, SELFPAY | PROVIDERS: PCP Internal Medicine; Visit Provider Internal Medicine Cardiovascular Disease | DX: I11.0 Hypertensive heart disease with heart failure (principal); I50.32 Chronic diastolic (congestive) heart failure | CPT/HCPCS: 99212 ==

== ENCOUNTER → 2020-11-02 09:45 | Outpatient (BNVA) | payer MEDICARE, OTHER, SELFPAY | PROVIDERS: PCP Internal Medicine; Visit Provider Nurse Practitioner Family | DX: I11.0 Hypertensive heart disease with heart failure (principal); I50.32 Chronic diastolic (congestive) heart failure; Z79.899 Other long term (current) drug therapy | CPT/HCPCS: 93005; 99212 ==

== ENCOUNTER 2020-11-18 07:12 | Outpatient (REF) | payer MEDICARE, OTHER, SELFPAY ==
[2020-11-18 08:40] LABS: Anion Gap 15 (12-20); Blood Urea Nitrogen 31 mg/dL (9-16); Calcium 9.9 mg/dL (8.4-10.2); Carbon Dioxide 25 mmol/L (22-29); Chloride 105 mmol/L (96-108); Estimated Glomerular Filt Rate 47; Glucose Random 90 mg/dL (60-115); Potassium 4.7 mmol/L (3.3-5.1); Sodium 140 mmol/L (135-145)
[2020-11-18 08:42] LABS: B Type Natriuretic Peptide 77 pg/mL (<100)
== END 2020-11-18 07:13 | disposition home or self-care (01) ==
LOC: HO.LAB 07:12
PROVIDERS: Absent Provider Internal Medicine; PCP Internal Medicine; Visit Provider Nurse Practitioner Family
DX: I50.32 Chronic diastolic (congestive) heart failure (principal)
CPT/HCPCS: 36415; 80048; 83880

== ENCOUNTER → 2021-01-16 09:56 | Outpatient (BNVA) | payer MEDICARE, OTHER, SELFPAY | PROVIDERS: PCP Internal Medicine; Visit Provider Internal Medicine Cardiovascular Disease | DX: I11.0 Hypertensive heart disease with heart failure (principal); I50.32 Chronic diastolic (congestive) heart failure | CPT/HCPCS: 99212 ==

== ENCOUNTER 2021-02-01 07:13 | Outpatient (REF) | payer MEDICARE, OTHER, SELFPAY ==
[2021-02-01 08:26] LABS: MANUAL DIFF FLAG NO
[2021-02-01 08:38] LABS: Basophils Absolute Auto 0.1 X10*3/uL (0.0-0.2); Basophils Percent Auto 1.7 % (0-2); Eosinophils Absolute Auto 0.4 X10*3/uL (0.0-0.4); Eosinophils Percent Auto 5.9 % (0-4); Hematocrit 36.6 % (37-47); Hemoglobin 11.4 g/dl (12.0-16.0); Imm Gran Abs Auto 0.04 X10*3/uL (0.00-0.03); Imm Gran Pct Auto 0.7 % (0.0-0.4); Lymphocytes Absolute Auto 1.2 X10*3/uL (1.2-4.9); Lymphocytes Percent Auto 20.4 % (20-40); Mean Corpuscular HGB Conc 31.1 g/dl (31.0-35.0); Mean Corpuscular Hemoglobin 29.4 pg (27.0-33.0); Mean Corpuscular Volume 94.3 fL (80-98); Mean Platelet Volume 10.2 fL (9.4-12.3); Monocytes Absolute Auto 0.6 X10*3/uL (0.1-1.2); Monocytes Percent Auto 10.8 % (2-11); Neutrophils Absolute Auto 3.6 X10*3/uL (2.0-8.3); Neutrophils Percent Auto 60.5 % (45-73); Platelet Count 341 X10*3/uL (160-400); Red Blood Count 3.88 X10*6/uL (4.20-5.50); Red Cell Distribution Width 12.3 % (11.0-16.0); White Blood Count 5.9 X10*3/uL (4.8-10.8)
[2021-02-01 09:02] LABS: Estimated Average Glucose 108 mg/dL; Hemoglobin A1c % 5.4 %
[2021-02-01 09:16] LABS: Alanine Aminotransferase 15 U/L (0-31); Albumin Level 4.4 g/dL (3.5-5.0); Alkaline Phosphatase 81 U/L (39-117); Anion Gap 15 (12-20); Aspartate Amino Transferase 19 U/L (5-31); Bilirubin Total 0.4 mg/dL (0.0-1.0); Blood Urea Nitrogen 32 mg/dL (9-16); Calcium 10.2 mg/dL (8.4-10.2); Carbon Dioxide 22 mmol/L (22-29); Chloride 107 mmol/L (96-108); Estimated Glomerular Filt Rate 44; Glucose Random 99 mg/dL (60-115); Magnesium 2.5 mg/dL (1.6-2.6); Potassium 4.7 mmol/L (3.3-5.1); Sodium 139 mmol/L (135-145); Total Protein 7.9 g/dL (6.5-8.0)
== END 2021-02-01 07:14 | disposition home or self-care (01) ==
LOC: HO.LAB 07:13
PROVIDERS: PCP Internal Medicine; Visit Provider Internal Medicine
DX: I12.9 Hypertensive chronic kidney disease with stage 1 through stage 4 chronic kidney disease, or unspecified chronic kidney disease (principal); N18.31 Chronic kidney disease, stage 3a; K21.9 Gastro-esophageal reflux disease without esophagitis; E03.9 Hypothyroidism, unspecified
CPT/HCPCS: 36415; 80053; 83036; 83735; 84443; 85025

== ENCOUNTER → 2021-05-10 14:21 | Outpatient (BNVA) | payer MEDICARE, OTHER, SELFPAY | PROVIDERS: PCP Internal Medicine; Referring Provider Internal Medicine; Visit Provider Internal Medicine Cardiovascular Disease | DX: I11.0 Hypertensive heart disease with heart failure (principal); I50.32 Chronic diastolic (congestive) heart failure | CPT/HCPCS: 99212 ==

== ENCOUNTER 2021-06-12 10:01 | Outpatient (REF) | payer MEDICARE, OTHER, SELFPAY ==
--- NOTE | ~2021-06-12 | MM_ITS ---
EXAMINATION: MM SCREENING DIGITAL BREAST TOMOSYNTHESIS, BILATERAL CLINICAL INFORMATION: Screening. Asymptomatic. The lifetime risk of breast cancer based on the Tyrer-Cuzick Model is 1%. COMPARISON: Mammography: 06/08/2020, 01/29/2019, 01/21/2018 TECHNIQUE: Digital breast tomosynthesis is performed in both the craniocaudal and mediolateral oblique views along with computer-aided detection (CAD). Synthesized 2D images are generated from the tomosynthesis. FINDINGS: There are scattered areas of fibroglandular density (ACR BI-RADS breast composition Category b). There are no significant masses, abnormal calcifications, or other abnormalities. Parenchymal pattern is similar to prior exams. The axilla and skin contours are unremarkable. No significant changes. MM/MM tomosynthesis screening BI IMPRESSION: No mammographic evidence of malignancy. ASSESSMENT: BI-RADS 1: Negative RECOMMENDATION: Routine annual mammography screening. This patient's information was entered into a reminder system with a target due date for their next mammogram.
== END 2021-06-12 10:02 | disposition home or self-care (01) ==
LOC: HO.MAMMO 10:01
PROVIDERS: PCP Internal Medicine; Visit Provider Internal Medicine Medical Oncology
DX: Z12.31 Encounter for screening mammogram for malignant neoplasm of breast (principal)
CPT/HCPCS: 77063; 77067

== ENCOUNTER 2021-08-23 07:46 | Outpatient (REF) | payer MEDICARE, OTHER, SELFPAY ==
[2021-08-23 08:01] LABS: MANUAL DIFF FLAG NO
[2021-08-23 08:38] LABS: Basophils Percent Auto 0.7 % (0-2); Eosinophils Absolute Auto 0.3 X10*3/uL (0.0-0.4); Eosinophils Percent Auto 4.7 % (0-4); Hemoglobin 10.1 g/dl (12.0-16.0); Imm Gran Abs Auto 0.04 X10*3/uL (0.00-0.03); Imm Gran Pct Auto 0.7 % (0.0-0.4); Lymphocytes Absolute Auto 0.5 X10*3/uL (1.2-4.9); Lymphocytes Percent Auto 9.2 % (20-40); Mean Corpuscular HGB Conc 31.6 g/dl (31.0-35.0); Mean Corpuscular Hemoglobin 29.5 pg (27.0-33.0); Mean Corpuscular Volume 93.6 fL (80.0-98.0); Mean Platelet Volume 9.6 fL (9.4-12.3); Monocytes Absolute Auto 0.5 X10*3/uL (0.1-1.2); Monocytes Percent Auto 7.8 % (2-11); Neutrophils Absolute Auto 4.4 x10*3/uL (2.0-8.3); Neutrophils Percent Auto 76.9 % (45-73); Platelet Count 280 X10*3/uL (160-400); Red Blood Count 3.42 X10*6/uL (4.20-5.50); White Blood Count 5.7 X10*3/uL (4.8-10.8)
[2021-08-23 09:12] LABS: Estimated Average Glucose 111 mg/dL; Hemoglobin A1c % 5.5 %
[2021-08-23 09:13] LABS: Alanine Aminotransferase 13 U/L (0-31); Albumin Level 3.8 g/dL (3.5-5.0); Alkaline Phosphatase 71 U/L (39-117); Anion Gap 9 (12-20); Aspartate Amino Transferase 19 U/L (5-31); Bilirubin Total 0.3 mg/dL (0.0-1.0); Blood Urea Nitrogen 22 mg/dL (9-16); Calcium 9.3 mg/dL (8.4-10.2); Carbon Dioxide 29 mmol/L (22-29); Chloride 105 mmol/L (96-108); Cholesterol 177 mg/dL; Estimated Glomerular Filt Rate 49; Glucose Random 100 mg/dL (60-115); HDL Cholesterol 68 mg/dL; Iron 45 mcg/dL (30-160); LDL Cholesterol Calculated 86 mg/dl; Magnesium 2.3 mg/dL (1.6-2.6); Percent Iron Saturation 15 % (15-50); Potassium 3.9 mmol/L (3.3-5.1); Sodium 139 mmol/L (135-145); Total Iron Binding Capacity 292 mcg/dL (228-428); Total Protein 7.2 g/dL (6.5-8.0); Triglycerides 119 mg/dL; Unsaturated Iron Binding 247 ug/dL
[2021-08-23 09:23] LABS: Ferritin 78 ng/mL (10-250); Thyroid Stimulating Hormone 4.34 uIU/mL (0.32-4.0)
[2021-08-23 10:02] LABS: Appearance Urine CLEAR; Color Urine YELLOW; Glucose Urine UA NEG (NEG); Leukocyte Esterase Urine TRACE (NEG); Nitrite Urine NEG (NEG); PH 5.5 (5.0-8.0); Specific Gravity - Urine 1.025 (1.005-1.025); Urine Blood NEG (NEG); Urine Ketones NEG (NEG); Urine Protein NEG (NEG-TRACE)
[2021-08-23 10:13] LABS: RBC Urine 0 /HPF (0); Squamous Epithelial Cell Urine 1+ /LPF
== END 2021-08-23 07:47 | disposition home or self-care (01) ==
LOC: HO.LAB 07:46
PROVIDERS: PCP Internal Medicine; Visit Provider Internal Medicine
DX: I10 Essential (primary) hypertension (principal); E78.00 Pure hypercholesterolemia, unspecified; K21.9 Gastro-esophageal reflux disease without esophagitis; D64.9 Anemia, unspecified; R73.01 Impaired fasting glucose
CPT/HCPCS: 36415; 80053; 80061; 81001; 81003; 82728; 83036; 83540; 83735; 84443; 85025

== ENCOUNTER 2021-09-19 13:58 | Outpatient (REF) | payer MEDICARE, OTHER, SELFPAY ==
[2021-09-19 16:13] LABS: Anion Gap 12 (12-20); Blood Urea Nitrogen 26 mg/dL (9-16); Calcium 9.5 mg/dL (8.4-10.2); Carbon Dioxide 27 mmol/L (22-29); Chloride 102 mmol/L (96-108); Estimated Glomerular Filt Rate 53; Glucose Random 101 mg/dL (60-115); Potassium 4.1 mmol/L (3.3-5.1); Sodium 137 mmol/L (135-145)
[2021-09-19 16:17] LABS: B Type Natriuretic Peptide 107 pg/mL (<100)
== END 2021-09-19 13:59 | disposition home or self-care (01) ==
LOC: HO.LAB 13:58
PROVIDERS: PCP Internal Medicine; Visit Provider Nurse Practitioner Family
DX: R07.89 Other chest pain (principal); R06.02 Shortness of breath; I11.0 Hypertensive heart disease with heart failure; I50.32 Chronic diastolic (congestive) heart failure
CPT/HCPCS: 36415; 80048; 83880; 93005; 99212

== ENCOUNTER → 2021-09-29 07:31 | Outpatient (REF) | payer MEDICARE, OTHER, SELFPAY ==
--- NOTE | ~2021-09-29 | NM_ITS ---
Myocardial perfusion study Indication: Shortness of breath evaluate for myocardial ischemia Technique: The patient was brought in for a Lexiscan perfusion study on 09/29/2021. Patient performed low-level exercise and was injected 0.4 mg of Lexiscan intravenously. Within a minute of injection, 25 mCi of sestamibi was given intravenously. Images were obtained using the SPECT gamma camera interlaced with the gating device. Images were obtained in supine position. Resting perfusion study was performed on 10/02/2021. Patient was administered 25 mCi of sestamibi intravenously at rest. Images were then obtained in supine position. Images obtained with and without CT attenuation. Total DLP 84 mGy-cm. Images were processed with the software and compared side to side in short axis, horizontal long axis and vertical long axis views. Findings: The stress perfusion study showed non attenuated images show normal uptake of radiotracer in all segments of LV myocardium. Attenuation corrected images show minimal thinning of the apex.. The gated study shows normal LV systolic function with calculated LVEF of 70%. LV cavity is normal in size. The gated study shows normal systolic wall thickening and contraction of segments. Resting study shows non attenuated images show normal uptake of radiotracer in all segments of LV myocardium. Gating at rest reveals normal systolic wall motion with ejection fraction at 68%. The findings are consistent with normal myocardial perfusion. NM/NM cardiolite stress test Impression: 1. Myocardial perfusion imaging study shows normal myocardial perfusion 2. Gated LVEF is 70% 3. Transient ischemic dilatation not present EKG is nondiagnostic for ischemia
--- NOTE | 2021-09-29 07:34 | CA_ITS ---
Acquisition Time: 2021-09-29 08:29:45 Total Exercise Time: 00:02:00 Test Indications: Dyspnea Medications: SEE H Protocol: LEXISCAN Max HR: 091 BPM 66% of Pred: 136 BPM Max BP: 120/064 mmHG Max Work Load: 1.0 METS Pharmacological stress test with Lexiscan injection, while sitting and kicking her legs, without anginal symptoms, without arrythmia, with normotensive response to injection, with nondiagnostic EKG for ischemia. In recovery she reported mild sob that was treated with Aminophylline 75mg IVP to reverse Lexiscan with resolution of symptom. Nuclear images pending. Test reviewed with Dr Mckeon. Referred By: Ivy Montes Overread By: IVY MONTES
--- NOTE | 2021-09-29 07:34 | CA_ITS ---
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 Normal LV systolic function with impaired relaxation filling pattern next 2. Mildly dilated left atrium 3. Early aortic stenosis 4. Borderline right ventricular systolic pressure 5. No gross pericardial effusion Findings Left Ventricle Normal left ventricular size, thickness, and systolic function. The visually estimated ejection fraction is between 60-65%. Spectral Doppler is indicative of an impaired relaxation filling pattern. E/E prime ratio is between 8 and 15 consistent with indeterminate filling pressures. Right Ventricle Normal right ventricular cavity size and systolic function. Atria The left atrium is mildly dilated. There is no evidence of interatrial shunt. The right atrium is likely dilated. Aortic Valve There is mild thickening of the aortic valve. There is mild aortic valve stenosis. There is no aortic valve regurgitation. Mitral Valve There is mild anterior and posterior mitral leaflet thickening. There is trace mitral valve regurgitation. There is no mitral valve stenosis. Pulmonic Valve The pulmonic valve was not well visualized. Tricuspid Valve Normal tricuspid valve structure. There is mild tricuspid valve regurgitation. The right ventricular systolic pressure is 39 mmHg. RV systolic pressure borderline elevated Great Vessels All visible segments of the aorta are normal in size. The pulmonary artery was not well visualized. Venous The inferior vena cava is normal in size and collapses greater than 50% with inspiration. Pericardium/Pleural There is no evidence of pericardial effusion. Prior Study Comparison Changes noted compared to prior study dated: 06/15/2020. left atrium was only mildly dilated on this study Measurements 2D Linear Measurements IVSd: 1.09 0.6-0.9/0.6-1.0 cm LVIDd: 4.43 3.9-5.3/4.2-5.9 cm LVIDd Index: 2.61 2.4-3.2/2.2-3.1 cm/m2 LVIDs: 2.94 2.0-3.6 cm LVPWd: 1.03 0.7-1.1 cm LA Diam: 4.20 2.7-3.8/3.0-4.0 cm LAIDs Index: 2.47 1.5-2.3 cm/m2 LV Mass: 201.84 67-162/88-224 g LV Mass Index: 118.73 43-95/49-115 g/m2 LVOT Diam: 2.00 3.0+(-)1.3 cm Mitral Valve MV Pk E: 0.92 MV PK A: 0.85 MV Decel Time: 305.00 E/A: 1.10 E'Lateral: 9.68 E'Medial: 6.74 E/E' Med: 13.70 E/E' Lat: 9.50 PHT: 89.00 MVA PHT: 2.47 Decel Aurora: 3.02 Aortic Valve AoV Pk Ankit: 2.20 AoV Mn Ankit: 1.36 AoV VTI: 0.52 AoV Pk Grad: 19.00 Aov Mn Grad: 9.00 JOSETTE Cont.VTI: 2.07 LVOT LVOT Pk Ankit: 1.51 LVOT Mn Ankit: 0.92 LVOT VTI: 0.34 LVOT Pk Grad: 9.00 LVOT Mn Grad: 4.00 LVOT Diam: 2.00 LVOT Area: 3.14 Diastolic Function MV Pk E: 0.92 MV Pk A: 0.85 E/A: 1.10 E'Medial: 6.74 E/E' Med: 13.70 E' Laterial: 9.68 E/E' Lat: 9.50 Right Ventricle TAPSE (mm): 23.00 TVS' Ankit: 21.00 Tricuspid Valve TR Pk Ankit: 2.99 TR Pk Grad: 36.00 RA Press: 3.00 RVSP: 39.00 Great Vessels Aorta Ao Asc: 3.20 2.1-3.4 cm Pulmonary Valve PV Pk Ankit: 1.17 Peak PV Grad: 5.00 Updated in Other Vendor System with Status of Final Henry Mckeon MD electronically signed on 09/29/2021 3:05:14 PM with status of Final
== END ==
LOC: HO.CARD 07:31
PROVIDERS: Visit Provider Nurse Practitioner Family
DX: R06.02 Shortness of breath (principal); I50.32 Chronic diastolic (congestive) heart failure
CPT/HCPCS: 78452; 93017; 93306; A9500; J0280; J2785

== ENCOUNTER 2021-11-22 10:06 | Outpatient (REF) | payer MEDICARE, OTHER, SELFPAY ==
--- NOTE | ~2021-11-22 | XR_ITS ---
EXAMINATION: XR CHEST CLINICAL INFORMATION: Dyspnea on exertion. COMPARISON: Chest done on 06/17/2020. TECHNIQUE: 2 views of the chest were obtained. FINDINGS: Bilateral diffuse prominent interstitial lung markings are noted, similar to prior study. Superimposed no discrete focal alveolar dense airspace consolidation present. No evidence of any pulmonary venous congestion. No evidence of any pleural effusion or pneumothorax. The cardiac mediastinal silhouette is within normal limit. The visualized upper abdomen is unremarkable. XR/XR chest 2V IMPRESSION: Persistent stable mild diffuse linear prominent interstitial lung markings, similar to prior study dated 06/17/2020, indeterminate etiology. No radiographic evidence of any acute superimposed airspace disease.
[2021-11-22 10:19] LABS: MANUAL DIFF FLAG NO
[2021-11-22 10:50] LABS: Basophils Absolute Auto 0.1 X10*3/uL (0.0-0.2); Basophils Percent Auto 1.1 % (0-2); Eosinophils Absolute Auto 0.2 X10*3/uL (0.0-0.4); Eosinophils Percent Auto 4.3 % (0-4); Hematocrit 36.9 % (37.0-47.0); Hemoglobin 11.3 g/dl (12.0-16.0); Imm Gran Abs Auto 0.04 X10*3/uL (0.00-0.03); Imm Gran Pct Auto 0.7 % (0.0-0.4); Lymphocytes Absolute Auto 0.7 X10*3/uL (1.2-4.9); Lymphocytes Percent Auto 12.8 % (20-40); Mean Corpuscular HGB Conc 30.6 g/dl (31.0-35.0); Mean Corpuscular Hemoglobin 27.7 pg (27.0-33.0); Mean Corpuscular Volume 90.4 fL (80.0-98.0); Mean Platelet Volume 9.1 fL (9.4-12.3); Monocytes Absolute Auto 0.5 X10*3/uL (0.1-1.2); Neutrophils Percent Auto 72.1 % (45-73); Platelet Count 333 X10*3/uL (160-400); Red Blood Count 4.08 X10*6/uL (4.20-5.50); Red Cell Distribution Width 14.6 % (11.0-16.0); White Blood Count 5.6 X10*3/uL (4.8-10.8)
[2021-11-22 11:17] LABS: Alanine Aminotransferase 15 U/L (0-31); Albumin Level 3.4 g/dL (3.5-5.0); Alkaline Phosphatase 69 U/L (39-117); Anion Gap 11 (12-20); Aspartate Amino Transferase 21 U/L (5-31); Bilirubin Total 0.4 mg/dL (0.0-1.0); Blood Urea Nitrogen 21 mg/dL (9-16); Calcium 9.2 mg/dL (8.4-10.2); Carbon Dioxide 26 mmol/L (22-29); Chloride 103 mmol/L (96-108); Estimated Glomerular Filt Rate 60; Glucose Random 104 mg/dL (60-115); Potassium 3.9 mmol/L (3.3-5.1); Sodium 136 mmol/L (135-145); Total Protein 6.9 g/dL (6.5-8.0)
[2021-11-22 11:29] LABS: Free T4 (Free Thyroxine) 1.17 ng/dL (0.71-1.85); Thyroid Stimulating Hormone 4.25 uIU/mL (0.32-4.0)
== END 2021-11-22 10:07 | disposition home or self-care (01) ==
LOC: HO.XRAY 10:06
PROVIDERS: PCP Internal Medicine; Visit Provider Internal Medicine
DX: R06.00 Dyspnea, unspecified (principal); D64.9 Anemia, unspecified; I10 Essential (primary) hypertension
CPT/HCPCS: 36415; 71046; 80053; 84439; 84443; 85025

== ENCOUNTER → 2021-11-29 10:59 | Outpatient (BNVA) | payer MEDICARE, OTHER, SELFPAY | PROVIDERS: PCP Internal Medicine; Referring Provider Internal Medicine; Visit Provider Internal Medicine Cardiovascular Disease | DX: I11.0 Hypertensive heart disease with heart failure (principal); I50.32 Chronic diastolic (congestive) heart failure | CPT/HCPCS: 99212 ==

== ENCOUNTER 2021-11-30 09:40 | Outpatient (REF) | payer MEDICARE, OTHER, SELFPAY ==
--- NOTE | ~2021-11-30 | US_ITS ---
EXAMINATION: US THYROID CLINICAL INFORMATION: Thyroid nodule. COMPARISON: None TECHNIQUE: Linear transducer grayscale and color Doppler examination with attention to the region of the thyroid. FINDINGS: SIZE: Measurements of the thyroid lobes and nodules are given in sagittal, anteroposterior and transverse dimensions respectively. Right Thyroid Lobe: 5.4 x 1.9 x 1.6 cm, volume 8.8 mL. Parenchyma: The gland echotexture is heterogeneous. Thyroid vascularity is increased. Left Thyroid Lobe: 5.0 x 1.9 x 2.2 cm, volume 10.9 mL. Parenchyma: The gland echotexture is heterogeneous. Thyroid vascularity is increased. Isthmus: 0.5 cm in maximum AP dimension. Estimated total number of nodules greater than or equal to 1 cm: 1. Supervisor Plastering nodules are described as follows: 1. Location: Right inferior. Size: 0.9 x 0.7 x 0.9 cm, volume 0.3 mL. Nodule characteristics: Composition: Solid/almost completely solid (2). Echogenicity: Hyperechoic (1). Shape: Not taller than wide (0). Margins: Smooth (0). Echogenic Foci: None (0). ACR TI-RADS total points: 3 ACR TI-RADS category: 3 2. Location: Left inferior. Size: 1.9 x 1.9 x 2.1 cm, volume 3.9 mL. Nodule characteristics: Composition: Solid/almost completely solid (2). Echogenicity: Hypoechoic (2). Shape: Not taller than wide (0). Margins: Irregular (2). Echogenic Foci: None (0). ACR TI-RADS total points: 6 ACR TI-RADS category: 4 NODES: No lymphadenopathy is seen in the tissue surrounding the thyroid gland. US/US thyroid IMPRESSION: 1. Heterogeneous slightly hypervascular thyroid lobe with minimal enlargement. 2. Heterogeneous solid and minimal cystic lesion in the left thyroid lobe, suspicious and abnormal by TI-RADS reference. Recommend fine-needle aspiration/biopsy. ACR TI-RADS RECOMMENDATION REFERENCE: Ultrasound-guided fine-needle aspiration, followup ultrasound, no further follow up. * TR1 (0 point) and TR 2 (2 points): No FNA or follow up * TR3 (3 points): FNA if more than or equal to 2.5 cm in maximum dimension, followup ultrasound in 1, 3 and 5 years if 1.5 to 2.4 cm in maximum dimension. * TR4 (4-6 points): FNA if more than or equal to 1.5 cm in maximum dimension, followup ultrasound in 1, 2, 3 and 5 years if 1 to 1.4 cm in maximum dimension. * TR5 (more than or equal to 7 points): FNA if more than or equal to 1 cm in maximum dimension, followup ultrasound every year for 5 years if 0.5 to 0.9 cm in maximum dimension. * TR3, TR4 or TR5 nodules that are below the size threshold for follow up receive no follow up.
== END 2021-11-30 09:41 | disposition home or self-care (01) ==
LOC: HO.US 09:40
PROVIDERS: Visit Provider Internal Medicine
DX: J02.9 Acute pharyngitis, unspecified (principal); E04.1 Nontoxic single thyroid nodule; C18.9 Malignant neoplasm of colon, unspecified
CPT/HCPCS: 76536

== ENCOUNTER 2021-12-08 08:59 | Outpatient (REF) | payer MEDICARE, OTHER, SELFPAY ==
--- NOTE | ~2021-12-08 | CT_ITS ---
EXAMINATION: CT CHEST WITHOUT CONTRAST CLINICAL INFORMATION: Interstitial pulmonary disease COMPARISON: Previous chest CTA May 2020 TECHNIQUE: Multidetector volumetric CT imaging of the chest was done. Axial MIP volume rendering provided. Sagittal and coronal reformatted images were obtained. This CT examination was performed using dose optimization techniques as appropriate, variously including the following: *Automated exposure control *Adjustment of mA and/or kV according to patient size (this includes techniques or standardized protocols for targeted exams where dose is matched to indication/reason for exam; i.e. extremities or head) *Use of iterative reconstruction technique DLP: 117 mGy-cm FINDINGS: LUNGS: There is evidence of emphysema. There is a 2 mm left upper lobe nodule axial image 29 series 10. There is an irregularly-shaped branching or tubular nodule in the right middle lobe. This measures 1.3 x 0.9 cm in transverse and AP dimension axial image #2 series 10. This appears to represent endobronchial soft tissue. There is scarring or subsegmental atelectasis seen in the medial segment of the right middle lobe. There is no evidence of interstitial lung disease. MEDIASTINUM: There is a left thyroid nodule that is stable. The heart does not appear enlarged. There is mild coronary artery calcification. The pulmonary arteries are upper normal in size. There is no pericardial effusion. There are no enlarged hilar or mediastinal lymph nodes. PLEURA: There is no pleural effusion. No pleural mass or thickening. AXILLA: No lymphadenopathy. UPPER ABDOMEN: There is a 1 cm low-attenuation left adrenal nodule that is stable. Hounsfield units without contrast measure 5 just above a benign adenoma. OSSEOUS STRUCTURES: There are degenerative changes of the spine. CT/CT chest wo con IMPRESSION: No evidence of interstitial lung disease. 0.9 x 1.3 cm branching or tubular-shaped right middle lobe nodule. This may represent endobronchial soft tissue opacification or endobronchial lesion. Evaluation of this area is limited due to respiratory motion artifact on prior exams from 2019 but this may not be appreciably changed. Imaging follow-up in 6-12 months recommended. Stable left thyroid nodule. Coronary artery calcification. Stable small left adrenal nodule probably representing a benign adenoma. Fleischner guidelines were followed.
== END 2021-12-08 09:00 | disposition home or self-care (01) ==
LOC: HO.CT 08:59
PROVIDERS: PCP Internal Medicine; Visit Provider Internal Medicine
DX: J84.9 Interstitial pulmonary disease, unspecified (principal)
CPT/HCPCS: 71250

== ENCOUNTER 2021-12-28 12:52 | Outpatient (REF) | payer MEDICARE, OTHER, SELFPAY ==
[2021-12-28 13:49] LABS: TSH reflex Free T4 3.26 uIU/mL (0.32-4.0)
== END 2021-12-28 12:53 | disposition home or self-care (01) ==
LOC: HO.LAB 12:52
PROVIDERS: PCP Internal Medicine; Visit Provider Internal Medicine
DX: D64.9 Anemia, unspecified (principal); E03.9 Hypothyroidism, unspecified
CPT/HCPCS: 36415; 84443

== ENCOUNTER → 2022-01-08 14:47 | Outpatient (BNVA) | payer MEDICARE, OTHER, SELFPAY | PROVIDERS: PCP Internal Medicine; Visit Provider Hospitalist | DX: R91.8 Other nonspecific abnormal finding of lung field (principal); J42 Unspecified chronic bronchitis; R06.02 Shortness of breath | CPT/HCPCS: 99202 ==

== ENCOUNTER → 2022-02-07 09:11 | Outpatient (BNVA) | payer MEDICARE, OTHER, SELFPAY | PROVIDERS: PCP Internal Medicine; Visit Provider Internal Medicine | DX: E04.2 Nontoxic multinodular goiter (principal) | CPT/HCPCS: 99202 ==

== ENCOUNTER 2022-03-08 08:50 | Inpatient (IN) | payer MEDICARE, OTHER, SELFPAY ==
--- NOTE | ~2022-03-08 | CT_ITS ---
EXAMINATION: CT ANGIOGRAM OF THE CHEST WITH AND WITHOUT CONTRAST (CT PULMONARY ANGIOGRAM FOR PE) CLINICAL INFORMATION: Reason for Exam SOB COMPARISON: CT chest dated 12/08/2021 TECHNIQUE: Prior to contrast administration, noncontrast localization images were obtained. Subsequently, multidetector volumetric imaging was performed from the thoracic inlet to below the diaphragms following the administration of 65 mL Omnipaque 350 intravenous contrast. No contrast reaction reported Sagittal, coronal, and MIP oblique sagittal reformatted images were obtained on the CT workstation, uploaded to PACS, and reviewed. This CT examination was performed using dose optimization techniques as appropriate, variously including the following: *Automated exposure control *Adjustment of mA and/or kV according to patient size (this includes techniques or standardized protocols for targeted exams where dose is matched to indication/reason for exam; i.e. extremities or head) *Use of iterative reconstruction technique Total exam dose-length product 175 mGy-cm FINDINGS: QUALITY OF STUDY/CONTRAST BOLUS: Satisfactory. PULMONARY ARTERIES: Some limitation from motion here but no convincing evidence of filling defect to suggest a pulmonary embolism. The thoracic inlet is comparable to previous. Thyroid nodularity on the left. Recommend ultrasound. The axillary regions are unremarkable. The partially visualized upper abdominal structures are felt to be within normal limits. Centrally there is no bulky adenopathy. The hilar regions are within normal limits. Imaging the lung owen. Right lung; Motion limits this exam. There is likely COPD. There is no significant infiltrate or effusion. Once again lesion seen in the right middle lobe. Difficult to evaluate is again there is more motion on this study than previous exam. I cannot exclude some mild enlargement here. Left lung again shows motion. Some probable basilar atelectasis. No effusion. Apical scarring is noted. Review of the bone windows does not demonstrate evidence for a bony lesion. CT/CT angio chest PE protocol IMPRESSION: Some limitation as described due to motion. Given this there is no convincing evidence of filling defect to suggest a pulmonary embolism. No significant infiltrate or effusion is seen. Once again there is a lesion seen in the right lung and due to motion it is difficult to compare to previous. There is no decrease in size and I cannot exclude some mild increase. I would consider PET/CT at this time for full evaluation versus a close three-month follow-up low-dose noncontrast study with good breath-hold. Other findings noted above VTE: negative
--- NOTE | ~2022-03-08 | XR_ITS ---
EXAMINATION: XR CHEST CLINICAL INFORMATION: Shortness of breath COMPARISON: 11/22/2021 TECHNIQUE: 2 views of the chest were obtained. FINDINGS: The left lung is grossly clear. Mild opacities in the right lung right lower lobe and right mid-upper lung zone. When CT is reviewed these may represent subtle areas of infiltrate. There is no convincing evidence for failure. There is no effusion. Hilar structures are comparable to previous. The cardiac silhouette is comparable XR/XR chest 2V IMPRESSION: Findings suggest mild infiltrates or effusion in the right lower lobe and right midlung. There is no evidence for failure or effusion.
[2022-03-08 08:59] VITALS: BP 147/63; PULSE 70; RESP 16; TEMP 36.9; O2SAT 93; BMI 26.5
--- NOTE | 2022-03-08 09:02 | ECG_ITS ---
Test Reason : diff breathing Blood Pressure : / mmHG Vent. Rate : 064 BPM Atrial Rate : 064 BPM P-R Int : 140 ms QRS Dur : 076 ms QT Int : 402 ms P-R-T Axes : 060 -11 021 degrees QTc Int : 414 ms Normal sinus rhythm with sinus arrhythmia Normal ECG When compared with ECG of 14-JUN-2020 05:56, No significant change was found Referred By: Generic ED Physician Electronically Signed By:KRISTI RICE
[2022-03-08 09:18] LABS: MANUAL DIFF FLAG NO
[2022-03-08 09:21] LABS: Eosinophils Absolute Auto 0.1 X10*3/uL (0.0-0.4); Eosinophils Percent Auto 1.4 % (0-4); Hematocrit 34.5 % (37.0-47.0); Hemoglobin 10.6 g/dl (12.0-16.0); Imm Gran Abs Auto 0.06 X10*3/uL (0.00-0.03); Imm Gran Pct Auto 1.4 % (0.0-0.4); Lymphocytes Absolute Auto 0.3 X10*3/uL (1.2-4.9); Lymphocytes Percent Auto 8.1 % (20-40); Mean Corpuscular HGB Conc 30.7 g/dl (31.0-35.0); Mean Corpuscular Hemoglobin 27.7 pg (27.0-33.0); Mean Corpuscular Volume 90.3 fL (80.0-98.0); Mean Platelet Volume 8.4 fL (9.4-12.3); Monocytes Absolute Auto 0.2 X10*3/uL (0.1-1.2); Monocytes Percent Auto 5.7 % (2-11); Neutrophils Absolute Auto 3.5 x10*3/uL (2.0-8.3); Neutrophils Percent Auto 82.4 % (45-73); Platelet Count 288 X10*3/uL (160-400); Red Blood Count 3.82 X10*6/uL (4.20-5.50); Red Cell Distribution Width 15.6 % (11.0-16.0); White Blood Count 4.2 X10*3/uL (4.8-10.8)
[2022-03-08 09:33] LABS: Prothrombin Time 10.9 SEC (10.0-13.1)
[2022-03-08 09:35] LABS: COVID-19 Test Negative (Negative); IDNOW Serial# 16C4AD1C; Partial Thromboplastin Time 30.4 SEC (26.0-36.4)
[2022-03-08 09:39] LABS: B Type Natriuretic Peptide 123 pg/mL (<100); Troponin-I High Sensitivity 6.3 ng/L (<3.5-17.0)
[2022-03-08 09:41] LABS: Alanine Aminotransferase 19 U/L (0-31); Albumin Level 3.2 g/dL (3.5-5.0); Alkaline Phosphatase 62 U/L (39-117); Anion Gap 11 (12-20); Aspartate Amino Transferase 27 U/L (5-31); Bilirubin Total 0.4 mg/dL (0.0-1.0); Blood Urea Nitrogen 17 mg/dL (9-16); Calcium 8.5 mg/dL (8.4-10.2); Carbon Dioxide 28 mmol/L (22-29); Chloride 100 mmol/L (96-108); Creatinine Clr Calc Pharmacy 41.4; Estimated Glomerular Filt Rate 60; Glucose Random 107 mg/dL (60-115); Lipase 31 U/L (8-78); Potassium 4.2 mmol/L (3.3-5.1); Sodium 135 mmol/L (135-145); Total Protein 6.9 g/dL (6.5-8.0)
--- NOTE | 2022-03-08 09:54 | ED.GENADULT ---
HPI - General Adult General Chief complaint: Dyspnea Stated complaint: Diff Breathing Time Seen by Provider: 03/08/22 09:06 Source: patient and family () Mode of arrival: ambulatory Limitations: no limitations History of Present Illness HPI narrative: Patient is an 86 year old female presenting to the emergency department today with increased shortness of breath. Patient states that since Saturday, she has significantly worse shortness of breath. Patient states that she is breathing quickly while at rest and when she walks, she can only make it a couple of feet before having to stop to catch her breath. 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 Patient states that she is requiring multiple pillows when lying down and can't lie flat without feeling like she is suffocating. Patient states that her SOB is significantly worse at night. Patient states that she takes lasix, 20mg 5 days a week. Patient denies any dizziness, lightheadedness, abdominal pain, nausea, vomiting, fever, chills, blurry vision, double vision, loss of vision, chest pain, back pain, night sweats, pain with urination, increased urinary frequency, increased urinary urgency, blood in her urine or stool, syncope or a near syncopal episode, recent trauma or falls, bowel incontinence, bladder incontinence, bowel retention, bladder retention, or any other complaints at this time. Onset (ago): day(s) (4) Severity: moderate Severity scale (1-10): 5 Relieving factors: none Exacerbating factors: movement Associated symptoms: denies other symptoms Treatments prior to arrival: none Related Data Home Medications Medication Instructions Recorded Confirmed cholecalciferol (vitamin D3) 50 50 mcg PO DAILY@1800 06/14/20 03/08/22 mcg (2,000 unit) tablet ferrous sulfate 325 mg (65 mg 325 mg PO DAILY@1800 06/14/20 03/08/22 iron) tablet multivitamin 1 tab PO DAILY 06/14/20 03/08/22 olmesartan 40 mg tablet 40 mg PO DAILY 06/14/20 03/08/22 omeprazole 40 mg capsule,delayed 40 mg PO DAILY@0630 06/14/20 03/08/22 release simvastatin 40 mg tablet 40 mg PO BEDTIME 06/14/20 03/08/22 hydralazine 50 mg tablet 50 mg PO TID 11/02/20 03/08/22 ascorbic acid (vitamin C) 500 mg 500 mg PO DAILY@1800 11/29/21 03/08/22 tablet docusate sodium 100 mg capsule 100 mg PO DAILY 11/29/21 03/08/22 (Colace) acetaminophen 500 mg tablet 1,000 mg PO Q6H PRN Pain 03/08/22 03/08/22 carvedilol 3.125 mg tablet 3.125 mg PO DAILY@0900,1800 03/08/22 03/08/22 furosemide 20 mg tablet 20 mg PO MOTUWEFRSA@0900 03/08/22 03/08/22 nifedipine 60 mg tablet,extended 60 mg PO BEDTIME 03/08/22 03/08/22 release Allergies Allergy/AdvReac Type Severity Reaction Status Date / Time cimetidine [From TAGAMET] Allergy Mild HEADACHES Verified 02/07/22 09:30 lisinopril [LISINOPRIL] Allergy Mild COUGH Verified 02/07/22 09:30 phenytoin [Dilantin] Allergy Unknown rash Verified 02/07/22 09:30 hydrochlorothiazide AdvReac Shortness Verified 02/07/22 09:30 of Breath From DILANTIN Allergy Unknown RASH Uncoded 02/07/22 09:30 Review of Systems Constitutional: Constitutional: Reports no additional constitutional complaints, Denies chills, Denies fever(s) and Denies night sweats Eyes: Eyes: Reports no additional eye complaints, Denies blurry vision, Denies change in vision, Denies diplopia, Denies eye discharge, Denies loss of vision and Denies eye pain ENT: Denies dizziness Cardiovascular: Cardiovascular: Reports no additional cardiovascular complaints, Denies chest pain, Denies lightheadedness, Denies Loss of Consciousness, Reports dyspnea and Reports dyspnea on exertion Respiratory: Respiratory: Reports no additional respiratory complaints, Reports dyspnea and Reports dyspnea on exertion Gastrointestinal: Gastrointestinal: Reports no additional gastrointestinal complaints, Denies abdominal pain, Denies melena, Denies hematochezia, Denies change in bowel habits and Denies change in stool character Genitourinary: Genitourinary: Denies hematuria, Denies urinary frequency, Denies dysuria, Denies urinary incontinence, Denies urinary hesitancy and Denies urinary urgency Musculoskeletal: Musculoskeletal: Reports no additional musculoskeletal complaints, Denies numbness and Denies tingling Neurologic: Denies dizziness, Denies loss of vision, Denies numbness and Denies tingling Psychiatric: Psychiatric: Reports no additional psychiatric complaints Endocrine: Endocrine: Reports no additional endocrine complaints Hematologic/Lymphatic: Hematologic/Lymphatic: Reports no additional hematologic/lymphatic complaints Allergic/Immunologic: Allergic/Immunologic: Reports no additional allergic/immunologic complaints [facility] Past Medical History Attestation statement: The following information was validated with the patient. Source: old records reviewed Medical History Carcinoma of colon Chronic diastolic heart failure GERD (gastroesophageal reflux disease) High cholesterol HTN (hypertension) Multinodular thyroid Rheumatic fever Subarachnoid bleed Surgical History H/O hemicolectomy History of appendectomy Hx of tonsillectomy Family History Family History Father Colon cancer Paternal Aunt Colon cancer Sister Breast cancer Social History Social History Household Members: Spouse Housing: House Are you a primary rn intensive care unit to a significant other at home: No Do you presently have visiting nurse or other home services: No Alcohol intake: never Patient Tobacco Use Status: Former Tobacco user Quit Date: 1979 Smoked: 20 +/- Advance Directives: No Advance Directives Information Provided: No service: No Current occupational status: retired Physical Exam ED Vital Signs: Vital Signs - 24 hr 03/08/22 08:59 03/08/22 14:02 Temperature 98.5 F Pulse Rate 70 77 Respiratory Rate 16 16 Blood Pressure 147/63 H 163/66 H Pulse Oximetry 93 94 Oxygen Delivery Method Room Air Room Air BMI result Body Mass Index 26.5 Const General: cooperative, no acute distress, alert and awake Nutritional Appearance: well nourished Orientation/consciousness: patient oriented x3 Limitations: no limitations HENMT Head: Yes normal to inspection and Yes atraumatic Ears: hearing grossly normal bilaterally and external ears normal General nose exam: Normal external nose present, no nasal discharge noted and no epistaxis Face and sinus: Yes normal facial exam, No abrasion and No laceration Mouth: Normal oral and palatal mucosa present, no drooling and no muffled voice Eyes General: appearance normal, both eyes and all related structures Periorbital: periorbital findings normal Eyelids: Yes eyelids normal Conjunctivae: conjunctivae normal Pupils: Equal, round and reactive pupils present EOM: EOMs intact bilaterally Neck Neck: Yes normal visual inspection, Yes full ROM and Yes no lymphadenopathy Chest Chest palpation & inspection: normal inspection of the chest Resp Effort & Inspection: able to speak in complete sentences, labored and tachypneic Auscultation: clear to auscultation bilaterally Cardio Jugular venous distension: JVD Rate: regular rate Rhythm: regular rhythm GI Inspection: Yes normal to inspection Neuro General: patient oriented x3 and moves all extremities Cranial nerves: Yes Equal, round and reactive pupils present Cognition (Neuro): normal cognition Motor exam (neuro): 5/5 motor strength present throughout Sensory Exam: Normal double simultaneous stimulation for sensation Coordination: [id number] test normal Extrem General: Yes normal to inspection, Yes full ROM and Yes capillary refill normal Psych Appearance: grossly normal Mental Status: mental status grossly normal Affect: normal affect Attitude: cooperative Thought process: Normal thought process present Thought content: Normal thought content present Insight: Good insight present (Psych) Medical Decision Making MDM Narrative Medical decision making narrative: Patient is an 86 year old female presenting to the emergency department today with increasing shortness of breath. Patient's physical exam showed a tachypenic individual with mild JVD. Patient's blood work showed a slightly elevated BNP and an elevated D dimer but was otherwise unremarkable. Patient's EKG was unremarkable. Patient's chest x-ray a possible infiltrate in the right mid lobe and right lower lobe. Patient's CTA chest was negative for any acute process. I explained my physical exam findings as well as all test results to the patient and the patient's . I answered all questions asked by the patient and the patient's . I spoke to Dr. Goodman and explained my want to admit this patient for an anginal equivalent vs. diastolyic failure work up. He verbalized agreement with admission. Patient and the patient's verbalized agreement and understanding with this treatment plan and hospital admission. Differential Diagnosis Differential Diagnosis: diastolic heart failure, heart failure Medical Records Medical records reviewed: Yes I reviewed the patient's medical records. Lab Data Lab results reviewed: Yes I reviewed the patient's lab results. Result diagrams: 03/08/22 09:13 03/08/22 09:13 Labs: Lab Results 03/08/22 03/08/22 03/08/22 Range/Units 09:13 09:13 09:13 WBC 4.2 L (4.8-10.8) X10*3/uL RBC 3.82 L (4.20-5.50) X10*6/uL Hgb 10.6 L (12.0-16.0) g/dl Hct 34.5 L (37.0-47.0) % MCV 90.3 (80.0-98.0) fL MCH 27.7 (27.0-33.0) pg MCHC 30.7 L (31.0-35.0) g/dl RDW 15.6 (11.0-16.0) % Plt Count 288 (160-400) X10*3/uL MPV 8.4 L (9.4-12.3) fL Immature Gran % (Auto) 1.4 H (0.0-0.4) % Neut % (Auto) 82.4 H (45-73) % Lymph % (Auto) 8.1 L (20-40) % [place] % (Auto) 5.7 (2-11) % Eos % (Auto) 1.4 (0-4) % Baso % (Auto) 1.0 (0-2) % Lymph # (Auto) 0.3 L (1.2-4.9) X10*3/uL [place] # (Auto) 0.2 (0.1-1.2) X10*3/uL Eos # (Auto) 0.1 (0.0-0.4) X10*3/uL Baso # (Auto) 0.0 (0.0-0.2) X10*3/uL Abs Immat Gran (auto) 0.06 H (0.00-0.03) X10*3/uL Absolute Neuts (auto) 3.5 (2.0-8.3) x10*3/uL Absolute Nucleated RBC 0.000 (0.0-0.012) X10*3/uL Nucleated RBC % (auto) 0.0 (0.0-0.2) /100WBC PT 10.9 (10.0-13.1) SEC INR 1.0 (0.9-1.1) APTT 30.4 (26.0-36.4) SEC D-Dimer High Sensitivty NG/ML VBG pH (7.32-7.43) VBG pCO2 mmHg VBG pO2 mmHg VBG HCO3 (22-26) mmol/L VBG O2 Saturation % VBG Base Excess mmol/L Sodium 135 (135-145) mmol/L Potassium 4.2 (3.3-5.1) mmol/L Chloride 100 (96-108) mmol/L Carbon Dioxide 28 (22-29) mmol/L Anion Gap 11 L (12-20) BUN 17 H (9-16) mg/dL Creatinine 0.90 (0.5-1.4) mg/dL Estim Creat Clear Calc 41.4 Estimated GFR 60 Random Glucose 107 (60-115) mg/dL Calcium 8.5 (8.4-10.2) mg/dL Total Bilirubin 0.4 (0.0-1.0) mg/dL AST 27 (5-31) U/L ALT 19 (0-31) U/L Alkaline Phosphatase 62 (39-117) U/L Troponin I High Sens (<3.5-17.0) ng/L B-Natriuretic Peptide (<100) pg/mL Total Protein 6.9 (6.5-8.0) g/dL Albumin 3.2 L (3.5-5.0) g/dL Lipase 31 (8-78) U/L Urine Color Urine Appearance Urine pH (5.0-8.0) Ur Specific [place] (1.005-1.025) Urine Protein (Neg-Trace) mg/dL Urine Glucose (UA) (Negative) mg/dL Urine Ketones (Negative) mg/dL Urine Blood (Negative) Urine Nitrite (Negative) Ur Leukocyte Esterase (Negative) COVID-19 (TALITA) (Negative) COVID-19 Clin Com 03/08/22 03/08/22 03/08/22 Range/Units 09:13 09:13 10:44 WBC (4.8-10.8) X10*3/uL RBC (4.20-5.50) X10*6/uL Hgb (12.0-16.0) g/dl Hct (37.0-47.0) % MCV (80.0-98.0) fL MCH (27.0-33.0) pg MCHC (31.0-35.0) g/dl RDW (11.0-16.0) % Plt Count (160-400) X10*3/uL MPV (9.4-12.3) fL Immature Gran % (Auto) (0.0-0.4) % Neut % (Auto) (45-73) % Lymph % (Auto) (20-40) % [place] % (Auto) (2-11) % Eos % (Auto) (0-4) % Baso % (Auto) (0-2) % Lymph # (Auto) (1.2-4.9) X10*3/uL [place] # (Auto) (0.1-1.2) X10*3/uL Eos # (Auto) (0.0-0.4) X10*3/uL Baso # (Auto) (0.0-0.2) X10*3/uL Abs Immat Gran (auto) (0.00-0.03) X10*3/uL Absolute Neuts (auto) (2.0-8.3) x10*3/uL Absolute Nucleated RBC (0.0-0.012) X10*3/uL Nucleated RBC % (auto) (0.0-0.2) /100WBC PT (10.0-13.1) SEC INR (0.9-1.1) APTT (26.0-36.4) SEC D-Dimer High Sensitivty 1027 NG/ML VBG pH (7.32-7.43) VBG pCO2 mmHg VBG pO2 mmHg VBG HCO3 (22-26) mmol/L VBG O2 Saturation % VBG Base Excess mmol/L Sodium (135-145) mmol/L Potassium (3.3-5.1) mmol/L Chloride (96-108) mmol/L Carbon Dioxide (22-29) mmol/L Anion Gap (12-20) BUN (9-16) mg/dL Creatinine (0.5-1.4) mg/dL Estim Creat Clear Calc Estimated GFR Random Glucose (60-115) mg/dL Calcium (8.4-10.2) mg/dL Total Bilirubin (0.0-1.0) mg/dL AST (5-31) U/L ALT (0-31) U/L Alkaline Phosphatase (39-117) U/L Troponin I High Sens 6.3 (<3.5-17.0) ng/L B-Natriuretic Peptide 123 H (<100) pg/mL Total Protein (6.5-8.0) g/dL Albumin (3.5-5.0) g/dL Lipase (8-78) U/L Urine Color Urine Appearance Urine pH (5.0-8.0) Ur Specific [place] (1.005-1.025) Urine Protein (Neg-Trace) mg/dL Urine Glucose (UA) (Negative) mg/dL Urine Ketones (Negative) mg/dL Urine Blood (Negative) Urine Nitrite (Negative) Ur Leukocyte Esterase (Negative) COVID-19 ([facility]ALITA) Negative (Negative) COVID-19 Clin Com See Note 03/08/22 03/08/22 03/08/22 Range/Units 10:51 13:13 13:28 WBC (4.8-10.8) X10*3/uL RBC (4.20-5.50) X10*6/uL Hgb (12.0-16.0) g/dl Hct (37.0-47.0) % MCV (80.0-98.0) fL MCH (27.0-33.0) pg MCHC (31.0-35.0) g/dl RDW (11.0-16.0) % Plt Count (160-400) X10*3/uL MPV (9.4-12.3) fL Immature Gran % (Auto) (0.0-0.4) % Neut % (Auto) (45-73) % Lymph % (Auto) (20-40) % [place] % (Auto) (2-11) % Eos % (Auto) (0-4) % Baso % (Auto) (0-2) % Lymph # (Auto) (1.2-4.9) X10*3/uL [place] # (Auto) (0.1-1.2) X10*3/uL Eos # (Auto) (0.0-0.4) X10*3/uL Baso # (Auto) (0.0-0.2) X10*3/uL Abs Immat Gran (auto) (0.00-0.03) X10*3/uL Absolute Neuts (auto) (2.0-8.3) x10*3/uL Absolute Nucleated RBC (0.0-0.012) X10*3/uL Nucleated RBC % (auto) (0.0-0.2) /100WBC PT (10.0-13.1) SEC INR (0.9-1.1) APTT (26.0-36.4) SEC D-Dimer High Sensitivty NG/ML VBG pH 7.47 H (7.32-7.43) VBG pCO2 36 mmHg VBG pO2 98 mmHg VBG HCO3 27 H (22-26) mmol/L VBG O2 Saturation 99.0 % VBG Base Excess 3.9 mmol/L Sodium (135-145) mmol/L Potassium (3.3-5.1) mmol/L Chloride (96-108) mmol/L Carbon Dioxide (22-29) mmol/L Anion Gap (12-20) BUN (9-16) mg/dL Creatinine (0.5-1.4) mg/dL Estim Creat Clear Calc Estimated GFR Random Glucose (60-115) mg/dL Calcium (8.4-10.2) mg/dL Total Bilirubin (0.0-1.0) mg/dL AST (5-31) U/L ALT (0-31) U/L Alkaline Phosphatase (39-117) U/L Troponin I High Sens 5.7 (<3.5-17.0) ng/L B-Natriuretic Peptide (<100) pg/mL Total Protein (6.5-8.0) g/dL Albumin (3.5-5.0) g/dL Lipase (8-78) U/L Urine Color Yellow Urine Appearance Clear Urine pH 6.5 (5.0-8.0) Ur Specific [place] >= 1.030 H (1.005-1.025) Urine Protein Negative (Neg-Trace) mg/dL Urine Glucose (UA) Negative (Negative) mg/dL Urine Ketones Negative (Negative) mg/dL Urine Blood Negative (Negative) Urine Nitrite Negative (Negative) Ur Leukocyte Esterase Negative (Negative) COVID-19 ([facility]ALITA) (Negative) COVID-19 Clin Com Imaging Data Chest x-ray: Attestation: I personally reviewed and interpreted this imaging study as follows: My impression: Mild infiltrates or effusion in the right lower lobe and right midlung Radiologist's impression: EXAMINATION: XR CHEST CLINICAL INFORMATION: Shortness of breath COMPARISON: 11/22/2021 TECHNIQUE: 2 views of the chest were obtained. FINDINGS: The left lung is grossly clear. Mild opacities in the right lung right lower lobe and right mid-upper lung zone. When CT is reviewed these may represent subtle areas of infiltrate. There is no convincing evidence for failure. There is no effusion. Hilar structures are comparable to previous. The cardiac silhouette is comparable XR/XR chest 2V IMPRESSION: Findings suggest mild infiltrates or effusion in the right lower lobe and right midlung. There is no evidence for failure or effusion. Dictated By: Deshaun Israel MD Signed By: Electronically signed by Deshaun Israel MD 03/08/[address] scan - chest: Attestation: I personally reviewed and interpreted this imaging study as follows: My impression: No acute process. Radiologist's impression: EXAMINATION: CT ANGIOGRAM OF THE CHEST WITH AND WITHOUT CONTRAST (CT PULMONARY ANGIOGRAM FOR PE) CLINICAL INFORMATION: Reason for Exam SOB COMPARISON: CT chest dated 12/08/2021? TECHNIQUE: Prior to contrast administration, noncontrast localization images were obtained. ? Subsequently, multidetector volumetric imaging was performed from the thoracic inlet to below the diaphragms following the administration of 65 mL Omnipaque 350 intravenous contrast. No contrast reaction reported Sagittal, coronal, and MIP oblique sagittal reformatted images were obtained on the CT workstation, uploaded to PACS, and reviewed. This CT examination was performed using dose optimization techniques as appropriate, variously including the following: *Automated exposure control *Adjustment of mA and/or kV according to patient size (this includes techniques or standardized protocols for targeted exams where dose is matched to indication/reason for exam; i.e. extremities or head) *Use of iterative reconstruction technique Total exam dose-length product 175 mGy-cm FINDINGS: QUALITY OF STUDY/CONTRAST BOLUS: Satisfactory. PULMONARY ARTERIES: Some limitation from motion here but no convincing evidence of filling defect to suggest a pulmonary embolism.? The thoracic inlet is comparable to previous. Thyroid nodularity on the left. Recommend ultrasound. The axillary regions are unremarkable. The partially visualized upper abdominal structures are felt to be within normal limits. Centrally there is no bulky adenopathy. The hilar regions are within normal limits. Imaging the lung owen. Right lung; Motion limits this exam. There is likely COPD. There is no significant infiltrate or effusion. Once again lesion seen in the right middle lobe. Difficult to evaluate is again there is more motion on this study than previous exam. I cannot exclude some mild enlargement here. Left lung again shows motion. Some probable basilar atelectasis. No effusion. Apical scarring is noted. Review of the bone windows does not demonstrate evidence for a bony lesion. CT/CT angio chest PE protocol IMPRESSION: Some limitation as described due to motion. Given this there is no convincing evidence of filling defect to suggest a pulmonary embolism. No significant infiltrate or effusion is seen. ? Once again there is a lesion seen in the right lung and due to motion it is difficult to compare to previous. There is no decrease in size and I cannot exclude some mild increase. I would consider PET/CT at this time for full evaluation versus a close three-month follow-up low-dose noncontrast study with good breath-hold. ? Other findings noted above ? VTE: negative Dictated By: Deshaun Israel MD Signed By: Electronically signed by Deshaun Israel MD 03/08/22 1216 ECG Data Attestation: I personally reviewed and interpreted this ECG as follows: Prior ECG tracings: available for review Interpretation: Vent. Rate: 064 BPM ? ? Atrial Rate: 064 BPM P-R Int: 140 ms? QRS Dur: 076 ms QT Int: 402 ms ? ? ? P-R-T Axes: 060 -11 021 degrees QTc Int: 414 ms ? Normal sinus rhythm with sinus arrhythmia Normal ECG When compared with ECG of 14-JUN-2020 05:56, No significant change was found DD/ 0904 Discharge Plan Discharge Clinical Impression: Diastolic dysfunction, Shortness of breath Patient Disposition: Admitted As Inpatient Prescriptions: No Action omeprazole 40 mg capsule,delayed release(DR/EC) 40 mg PO DAILY@0630 simvastatin 40 mg tablet 40 mg PO BEDTIME olmesartan 40 mg tablet 40 mg PO DAILY multivitamin Tablet 1 tab PO DAILY ferrous sulfate 325 mg (65 mg iron) Tablet 325 mg PO DAILY@1800 cholecalciferol (vitamin D3) 50 mcg (2,000 unit) Tablet 50 mcg PO DAILY@1800 ascorbic acid (vitamin C) 500 mg tablet 500 mg PO DAILY@1800 docusate sodium [Colace] 100 mg capsule 100 mg PO DAILY carvedilol 3.125 mg tablet 3.125 mg PO DAILY@0900,1800 Protocol: Hold for SBP/HR < HOLD for SBP < : 90 HOLD for HR < : 60 furosemide 20 mg tablet 20 mg PO MOTUWEFRSA@0900 nifedipine 60 mg tablet extended release 60 mg PO BEDTIME acetaminophen 500 mg Tablet 1,000 mg PO Q6H PRN (Reason: Pain) hydralazine 50 mg tablet 50 mg PO TID Print Language: Malaysian
--- NOTE | 2022-03-08 10:52 | PC.NURSE ---
Pt comes in from home with complaints of SOB which has been ongoing for approx 1 week, denies CP, N/V at this time. LCA at this time, pt noted to have short shallow breaths by this RN, but no signs of resp distress. Call deluca within reach, 20G IV placed in LAC for PE study. Call deluca within reach, will continue to monitor.
[2022-03-08 10:55] LABS: Venous Blood Gas Refer to POC result
[2022-03-08 10:57] LABS: VBG Base Excess 3.9 mmol/L; VBG HCO3 27 mmol/L (22-26); VBG pCO2 36 mmHg; VBG pH 7.47 (7.32-7.43); VBG pO2 98 mmHg
[2022-03-08 11:04] LABS: D Dimer High Sensitivity 1027 NG/ML
[2022-03-08] MEDS: iohexoL 350 MG/ML 100 ML INFUS..BTL IV (11:22)
--- NOTE | 2022-03-08 12:40 | PHA.MEDREC ---
Pharmacy Consult ? Medication Reconciliation Pharmacy has completed the medication reconciliation.
[2022-03-08 13:36] LABS: Appearance Urine Clear; Color Urine Yellow; Glucose Urine UA Negative (Negative); Leukocyte Esterase Urine Negative (Negative); Nitrite Urine Negative (Negative); PH 6.5 (5.0-8.0); Specific Gravity - Urine >= 1.030 (1.005-1.025); Urine Blood Negative (Negative); Urine Ketones Negative (Negative); Urine Protein Negative (Neg-Trace)
[2022-03-08 13:39] LABS: Troponin-I High Sensitivity 5.7 ng/L (<3.5-17.0)
[2022-03-08 14:02] VITALS: BP 163/66; PULSE 77; RESP 16; O2SAT 94
--- NOTE | 2022-03-08 14:50 | PM.IMHP ---
History of Present Illness Date of Service: 03/08/22 Chief Complaint: shortness of breath Patient is an 86 year old female presenting to the emergency department today with increased shortness of breath. Patient states that since Saturday, she has significantly worse shortness of breath. Patient states that she is breathing quickly while at rest and when she walks, she can only make it a couple of feet before having to stop to catch her breath. Patient states that she sees a classroom instructor but has never had SOB like this before. Patient states that she is requiring multiple pillows when lying down and can't lie flat without feeling like she is suffocating. Patient states that her SOB is significantly worse at night. Patient states that she takes lasix, 20mg 5 days a week ER COurse: CTA negative for pulmonary emboli; chest x-ray demonstrates right mid and lower lobe infiltrate Review of Systems Review of Systems: denies chest pain Admits to exertional shortness of breath that has progressed to some shortness of breath at rest Denies nausea vomiting diarrhea Denies fever chills [facility] Medical History (Updated 03/08/22 @ 15:01 by Ori Goodman DO) Carcinoma of colon Chronic diastolic heart failure GERD (gastroesophageal reflux disease) High cholesterol HTN (hypertension) Multinodular thyroid Rheumatic fever Subarachnoid bleed Family History Father Colon cancer Paternal Aunt Colon cancer Sister Breast cancer Surgical History H/O hemicolectomy History of appendectomy Hx of tonsillectomy Social History Household Members: Spouse Housing: House Are you a primary patient care representative to a significant other at home: No Do you presently have visiting nurse or other home services: No Alcohol intake: never Patient Tobacco Use Status: Former Tobacco user Quit Date: 1979 Years Smoked: 20 +/- Advance Directives: No Advance Directives Information Provided: No service: No Current occupational status: retired Meds Allergies Allergy/AdvReac Type Severity Reaction Status Date / Time cimetidine [From TAGAMET] Allergy Mild HEADACHES Verified 02/07/22 09:30 lisinopril [LISINOPRIL] Allergy Mild COUGH Verified 02/07/22 09:30 phenytoin [Dilantin] Allergy Unknown rash Verified 02/07/22 09:30 hydrochlorothiazide AdvReac Shortness Verified 02/07/22 09:30 of Breath From DILANTIN Allergy Unknown RASH Uncoded 02/07/22 09:30 Active Medications: Current Medications Acetaminophen (Acetaminophen 325 Mg Tablet) 650 mg PO Q6H PRN PRN Reason: Pain, Mild (Pain Scale 1-3) Ascorbic Acid (Ascorbic Acid 500 Mg Tablet) 500 mg PO DAILY@1800 [facility] Carvedilol (Carvedilol 3.125 Mg Tablet) 3.125 mg PO DAILY@0900,1800 [facility]; Protocol Docusate Sodium (Docusate Sodium 100 Mg Capsule) 100 mg PO DAILY [facility] Enoxaparin Sodium (Enoxaparin Sodium 40 Mg/0.4 Ml Syringe) 40 mg SUBCUT Q24H [facility] Furosemide (Furosemide 20 Mg Tablet) 20 mg PO MOTUWEFRSA@0900 [facility]; Protocol Hydralazine HCl (Hydralazine Hcl 50 Mg Tablet) 50 mg PO TID [facility]; Protocol Ceftriaxone Sodium 1 gm/ (Sodium Chloride) 50 mls @ 100 mls/hr IV DAILY ONE Stop: 03/08/22 15:15 Doxycycline Hyclate 100 mg/ (Sodium Chloride) 250 mls @ 166.67 mls/hr IV Q12H [facility] Multivitamins/Vitamin C (Multivitamin Tablet) 1 tab PO DAILY [facility] Non-Formulary Medication (Acetaminophen) 1,000 mg PO Q6H PRN PRN Reason: Pain Non-Formulary Medication (Ferrous Sulfate) 325 mg PO DAILY@1800 [facility] Non-Formulary Medication (Nifedipine) 60 mg PO BEDTIME [facility] Non-Formulary Medication (Olmesartan) 40 mg PO DAILY [facility] Non-Formulary Medication (Simvastatin) 40 mg PO BEDTIME [facility] Omeprazole (Omeprazole 40 Mg Capsule.Dr) 40 mg PO DAILY@0630 [facility] Pharmacy Consult (Consult Rx Perform Med Rec) 1 each MISCELLANE ONCE PRN PRN Reason: Consult order Sodium Chloride (0.9 % Sodium Chloride Flush 3 Ml Syringe) 3 ml IVFLUSH QSHIFT [facility] Vitamin D (Cholecalciferol (Vitamin D3) 25 Mcg Tablet) 50 mcg PO DAILY@1800 [facility] Home Medications Medication Instructions Recorded Confirmed Last Taken Type cholecalciferol (vitamin D3) 50 50 mcg PO DAILY@1800 06/14/20 03/08/22 03/07/22 History mcg (2,000 unit) tablet ferrous sulfate 325 mg (65 mg 325 mg PO DAILY@1800 06/14/20 03/08/22 03/07/22 History iron) tablet multivitamin 1 tab PO DAILY 06/14/20 03/08/22 03/08/22 History olmesartan 40 mg tablet 40 mg PO DAILY 06/14/20 03/08/22 03/08/22 History omeprazole 40 mg capsule,delayed 40 mg PO DAILY@0630 06/14/20 03/08/22 03/08/22 History release simvastatin 40 mg tablet 40 mg PO BEDTIME 06/14/20 03/08/22 03/07/22 History hydralazine 50 mg tablet 50 mg PO TID 11/02/20 03/08/22 03/08/22 History ascorbic acid (vitamin C) 500 mg 500 mg PO DAILY@1800 11/29/21 03/08/22 03/07/22 History tablet docusate sodium 100 mg capsule 100 mg PO DAILY 11/29/21 03/08/22 03/07/22 History (Colace) acetaminophen 500 mg tablet 1,000 mg PO Q6H PRN Pain 03/08/22 03/08/22 03/07/22 History carvedilol 3.125 mg tablet 3.125 mg PO DAILY@0900,1800 03/08/22 03/08/22 03/08/22 History furosemide 20 mg tablet 20 mg PO MOTUWEFRSA@0900 03/08/22 03/08/22 03/07/22 History nifedipine 60 mg tablet,extended 60 mg PO BEDTIME 03/08/22 03/08/22 03/07/22 History release Physical Exam Vital Signs and Narrative: Vital Signs: Last Vital Signs Temp 98.5 F 03/08/22 08:59 Pulse 77 03/08/22 14:02 Resp 16 03/08/22 14:02 BP 163/66 H 03/08/22 14:02 Pulse Ox 94 03/08/22 14:02 O2 Del Method 03/08/22 14:02 BMI result Body Mass Index 26.5 Const: Other: awake alert oriented x3 no acute distress Neck: Other: JVD at 30 degrees Resp: Other: crackles heard right basis with scattered expiratory wheezes throughout Cardio: Other: no S4; positive S1-S2; no S3 murmurs rubs or ga GI: Other: soft nontender nondistended with normoactive Extrem: Other: no edema bilaterally Results Labs CBC and Chem 7: 03/08/22 09:13 03/08/22 09:13 Labs: Laboratory Results - last 24 hr 03/08/22 03/08/22 03/08/22 09:13 09:13 09:13 MCV 90.3 MCH 27.7 MCHC 30.7 L RDW 15.6 Plt Count 288 MPV 8.4 L Immature Gran % (Auto) 1.4 H Neut % (Auto) 82.4 H Lymph % (Auto) 8.1 L [place] % (Auto) 5.7 Eos % (Auto) 1.4 Baso % (Auto) 1.0 Lymph # (Auto) 0.3 L [place] # (Auto) 0.2 Eos # (Auto) 0.1 Baso # (Auto) 0.0 Abs Immat Gran (auto) 0.06 H Absolute Neuts (auto) 3.5 Absolute Nucleated RBC 0.000 Nucleated RBC % (auto) 0.0 PT 10.9 INR 1.0 APTT 30.4 D-Dimer High Sensitivty VBG pH VBG pCO2 VBG pO2 VBG HCO3 VBG O2 Saturation VBG Base Excess Anion Gap 11 L Estim Creat Clear Calc 41.4 Estimated GFR 60 Random Glucose 107 Calcium 8.5 Total Bilirubin 0.4 AST 27 ALT 19 Alkaline Phosphatase 62 B-Natriuretic Peptide Total Protein 6.9 Albumin 3.2 L Lipase 31 Urine Color Urine Appearance Urine pH Ur Specific [place] Urine Protein Urine Glucose (UA) Urine Ketones Urine Blood Urine Nitrite Ur Leukocyte Esterase COVID-19 ([facility]) COVID-19 Clin Com 03/08/22 03/08/22 03/08/22 09:13 09:13 10:44 MCV MCH MCHC RDW Plt Count MPV Immature Gran % (Auto) Neut % (Auto) Lymph % (Auto) [place] % (Auto) Eos % (Auto) Baso % (Auto) Lymph # (Auto) [place] # (Auto) Eos # (Auto) Baso # (Auto) Abs Immat Gran (auto) Absolute Neuts (auto) Absolute Nucleated RBC Nucleated RBC % (auto) PT INR APTT D-Dimer High Sensitivty 1027 VBG pH VBG pCO2 VBG pO2 VBG HCO3 VBG O2 Saturation VBG Base Excess Anion Gap Estim Creat Clear Calc Estimated GFR Random Glucose Calcium Total Bilirubin AST ALT Alkaline Phosphatase B-Natriuretic Peptide 123 H Total Protein Albumin Lipase Urine Color Urine Appearance Urine pH Ur Specific [place] Urine Protein Urine Glucose (UA) Urine Ketones Urine Blood Urine Nitrite Ur Leukocyte Esterase COVID-19 ([facility]) Negative COVID-19 Clin Com See Note 03/08/22 03/08/22 10:51 13:28 MCV MCH MCHC RDW Plt Count MPV Immature Gran % (Auto) Neut % (Auto) Lymph % (Auto) [place] % (Auto) Eos % (Auto) Baso % (Auto) Lymph # (Auto) [place] # (Auto) Eos # (Auto) Baso # (Auto) Abs Immat Gran (auto) Absolute Neuts (auto) Absolute Nucleated RBC Nucleated RBC % (auto) PT INR APTT D-Dimer High Sensitivty VBG pH 7.47 H VBG pCO2 36 VBG pO2 98 VBG HCO3 27 H VBG O2 Saturation 99.0 VBG Base Excess 3.9 Anion Gap Estim Creat Clear Calc Estimated GFR Random Glucose Calcium Total Bilirubin AST ALT Alkaline Phosphatase B-Natriuretic Peptide Total Protein Albumin Lipase Urine Color Yellow Urine Appearance Clear Urine pH 6.5 Ur Specific [place] >= 1.030 H Urine Protein Negative Urine Glucose (UA) Negative Urine Ketones Negative Urine Blood Negative Urine Nitrite Negative Ur Leukocyte Esterase Negative COVID-19 ([facility]) COVID-19 Clin Com Imaging Radiologist's Impressions: Impressions Chest CTA 03/08/22 11:30 IMPRESSION: Some limitation as described due to motion. Given this there is no convincing evidence of filling defect to suggest a pulmonary embolism. No significant infiltrate or effusion is seen. Once again there is a lesion seen in the right lung and due to motion it is difficult to compare to previous. There is no decrease in size and I cannot exclude some mild increase. I would consider PET/CT at this time for full evaluation versus a close three-month follow-up low-dose noncontrast study with good breath-hold. Other findings noted above VTE: negative Chest X-Ray 03/08/22 13:59 IMPRESSION: Findings suggest mild infiltrates or effusion in the right lower lobe and right midlung. There is no evidence for failure or effusion. Assessment and Plan (1) Right lower lobe pneumonia: Status: Acute (2) HTN (hypertension): Status: Acute (3) Chronic diastolic heart failure: Status: Acute Plan 86-year-old female presents to the emergency room today with worsening shortness of breath over the last 5 days. states over the last 2 days has developed 2 pillow orthopnea. Denies fever chills. ER chest x-ray; right lower and mid lung pneumonias. 1.Right mid/ lower lobe infiltrate - ceftriaxone/doxycycline - switch to Ceftin/p.o. doxy upon discharge - su Villaseñor 2.Hypertension - acceptable control on current therapies - adjust as indicated 3.Chronic diastolic heart failure - continue Coreg/ hydralazine/ nifedipine/ olmesartan - stable at this time 4. GERD - continue PPI Lovenox Full Code patient will require 2 midnights going forward for IV antibiotics to treat pneumonia. This cannot be achieved and a lesser acute setting Quality Stroke Does the patient have a stroke diagnosis?: No VTE Prior VTE?: No VTE Risk Level:: Medical - moderate - high VTE Device Contraindication: Treatment Not Indicated VTE Drug Contraindication: N/A - Med Ordered
[2022-03-08] MEDS: cefTRIAXone sodium 1 GM in 0.9 % Sodium Chloride 50 ML IV (16:09)
[2022-03-08] MEDS: hydrALAZINE HCl 50 MG TABLET PO ×2 (16:09→19:32)
[2022-03-08] MEDS: Enoxaparin Sodium 40 MG/0.4 ML SYRINGE SUBCUT (16:09)
[2022-03-08] MEDS: Doxycycline Hyclate 100 MG in 0.9 % Sodium Chloride 250 ML 166.67 MG IV (16:10)
[2022-03-08 16:11] VITALS: BP 144/63; PULSE 84; RESP 18; O2SAT 98
[2022-03-08] MEDS: Atorvastatin Calcium 20 MG TABLET PO (19:32)
[2022-03-08] MEDS: Ascorbic Acid 500 MG TABLET PO (19:32)
[2022-03-08] MEDS: Cholecalciferol (Vitamin D3) 25 MCG TABLET 50 MCG PO (19:32)
[2022-03-08] MEDS: carvediloL 3.125 MG TABLET PO (19:36)
[2022-03-08] MEDS: Ferrous Sulfate 324 MG TABLET.DR PO (19:45)
[2022-03-08] MEDS: NIFEdipine ER 60 MG TAB.ER.24 PO (20:23)
[2022-03-08 23:32] VITALS: BP 166/71; PULSE 72; RESP 16; TEMP 36.7; O2SAT 94
[2022-03-09] VITALS: RESP 20
[2022-03-09] MEDS: Acetaminophen 325 MG TABLET 650 MG PO (01:30)
[2022-03-09] MEDS: 0.9 % Sodium Chloride Flush 3 ML SYRINGE IVFLUSH ×2 (01:33→05:52)
[2022-03-09] MEDS: Doxycycline Hyclate 100 MG in 0.9 % Sodium Chloride 250 ML 166.67 MG IV ×2 (02:26→16:47)
[2022-03-09] MEDS: Omeprazole 40 MG CAPSULE.DR PO (05:51)
[2022-03-09 06:43] LABS: MANUAL DIFF FLAG NO
[2022-03-09 06:46] LABS: Basophils Percent Auto 0.8 % (0-2); Eosinophils Absolute Auto 0.1 X10*3/uL (0.0-0.4); Hematocrit 29.7 % (37.0-47.0); Hemoglobin 9.5 g/dl (12.0-16.0); Imm Gran Abs Auto 0.05 X10*3/uL (0.00-0.03); Imm Gran Pct Auto 1.4 % (0.0-0.4); Lymphocytes Absolute Auto 0.4 X10*3/uL (1.2-4.9); Lymphocytes Percent Auto 11.5 % (20-40); Mean Corpuscular Hemoglobin 29.3 pg (27.0-33.0); Mean Corpuscular Volume 91.7 fL (80.0-98.0); Mean Platelet Volume 8.9 fL (9.4-12.3); Monocytes Absolute Auto 0.2 X10*3/uL (0.1-1.2); Monocytes Percent Auto 5.6 % (2-11); Neutrophils Absolute Auto 2.8 x10*3/uL (2.0-8.3); Neutrophils Percent Auto 78.7 % (45-73); Platelet Count 267 X10*3/uL (160-400); Red Blood Count 3.24 X10*6/uL (4.20-5.50); Red Cell Distribution Width 15.5 % (11.0-16.0); White Blood Count 3.6 X10*3/uL (4.8-10.8)
[2022-03-09 07:03] LABS: Alanine Aminotransferase 15 U/L (0-31); Albumin Level 2.8 g/dL (3.5-5.0); Alkaline Phosphatase 54 U/L (39-117); Anion Gap 12 (12-20); Aspartate Amino Transferase 25 U/L (5-31); Bilirubin Total 0.5 mg/dL (0.0-1.0); Blood Urea Nitrogen 14 mg/dL (9-16); Calcium 8.5 mg/dL (8.4-10.2); Carbon Dioxide 25 mmol/L (22-29); Chloride 104 mmol/L (96-108); Creatinine Clr Calc Pharmacy 42.8; Estimated Glomerular Filt Rate > 60; Glucose Fasting 95 mg/dL (60-99); Sodium 137 mmol/L (135-145)
[2022-03-09 08:00] VITALS: PULSE 70; RESP 13; TEMP 36.1; O2SAT 95
--- NOTE | 2022-03-09 08:52 | PC.NURSE ---
Called pharmacy to bring Valsartan 160mg to ED Overflow. Med not available in Pyxis. Will administer upon receipt.
--- NOTE | 2022-03-09 10:18 | PC.NURSE ---
Out of bed, ambulates independently to bathroom. Pleasant/calm/cooperative. States that she is okay but stir crazy and looking for something to read or do . Agreed to try to find an activity or some reading material as soon as possible. Pt thankful.
--- NOTE | 2022-03-09 10:21 | MHC.CM.PN ---
PER NOTES FROM PREVIOUS ADMISSION, A HCP WAS COMPLETED HOWEVER IT IS NOT ON FILE CM CALLED [facility], WHERE PT TRANSFERRED FOLLOWING HER LAST ADMISSION, HOWEVER THEY DO NOT HAVE ONE ON FILE EITHER THEY DID HAVE A MOLST FORM WHICH WAS OBTAINED AND GIVEN TO [facility] TO BE SCANNED INTO EXPANSE
[2022-03-09] MEDS: Docusate Sodium 100 MG CAPSULE PO (10:26)
[2022-03-09] MEDS: hydrALAZINE HCl 50 MG TABLET PO ×3 (10:26→21:21)
[2022-03-09] MEDS: Multivitamin TABLET 1 TAB PO (10:26)
[2022-03-09] MEDS: Valsartan 160 MG TABLET PO (10:26)
[2022-03-09] MEDS: carvediloL 3.125 MG TABLET PO ×2 (10:29→18:24)
[2022-03-09] MEDS: Furosemide 20 MG TABLET PO (10:29)
--- NOTE | 2022-03-09 11:08 | PC.NURSE ---
Attempted to call [facility] (Adrien) as requested, but no answer. Left voicemail with callback number.
[2022-03-09 11:45] VITALS: BP 138/56; PULSE 66; RESP 11; TEMP 36.1; O2SAT 92
--- NOTE | 2022-03-09 14:59 | P.PNIM_ITS ---
Subjective Subjective Date of Service: 03/09/22 Interval History: Feeling better since admission less shortness of breath, denies fever chills, no acute events overnight, denies nausea vomiting abdominal pain, no diarrhea. Review of Systems Review of Systems: Yes all other systems are reviewed and are negative Physical Exam Vital Signs: Vital Signs: Last Vital Signs Temp 97 F 03/09/22 11:45 Pulse 66 03/09/22 11:45 Resp 11 L 03/09/22 11:45 BP 138/56 L 03/09/22 11:45 Pulse Ox 92 03/09/22 11:45 O2 Del Method 03/09/22 11:45 BMI result Body Mass Index 26.5 Const: Other: General awake alert x3, in no acute distress. Neck no JVD. CVS regular rate rhythm, Respiratory lungs coarse breath sounds, no respiratory distress, no wheeze, no rhonchi. Gastrointestinal abdomen soft, nontender, bowel sounds audible, no guarding , no rigidity. Extremities no edema. Neuro nonfocal Skin no rash Psych appropriate affect Objective Data Active Medications Acetaminophen (Acetaminophen 325 Mg Tablet) 650 mg PO Q6H PRN PRN Reason: Pain, Mild (Pain Scale 1-3) Last Admin: 03/09/22 01:30 Dose: 650 mg Documented By: MARCOS Ascorbic Acid (Ascorbic Acid 500 Mg Tablet) 500 mg PO DAILY@1800 [facility] Last Admin: 03/08/22 19:32 Dose: 500 mg Documented By: BRAIN Atorvastatin Calcium (Atorvastatin Calcium 20 Mg Tablet) 20 mg PO BEDTIME [facility] Last Admin: 03/08/22 19:32 Dose: 20 mg Documented By: BRAIN Carvedilol (Carvedilol 3.125 Mg Tablet) 3.125 mg PO DAILY@0900,1800 [facility]; Protocol Last Admin: 03/09/22 10:29 Dose: 3.125 mg Documented By: SALLIE Docusate Sodium (Docusate Sodium 100 Mg Capsule) 100 mg PO DAILY [facility] Last Admin: 03/09/22 10:26 Dose: 100 mg Documented By: SALLIE Enoxaparin Sodium (Enoxaparin Sodium 40 Mg/0.4 Ml Syringe) 40 mg SUBCUT Q24H [facility] Last Admin: 03/08/22 16:09 Dose: 40 mg Documented By: GOPAL Ferrous Sulfate (Ferrous Sulfate 324 Mg Tablet.) 324 mg PO DAILY@1800 [facility] Last Admin: 03/08/22 19:45 Dose: 324 mg Documented By: BRAIN Furosemide (Furosemide 20 Mg Tablet) 20 mg PO MOTUWEFRSA@0900 [facility]; Protocol Last Admin: 03/09/22 10:29 Dose: 20 mg Documented By: SALLIE Hydralazine HCl (Hydralazine Hcl 50 Mg Tablet) 50 mg PO TID [facility]; Protocol Last Admin: 03/09/22 10:26 Dose: 50 mg Documented By: SALLIE Ceftriaxone Sodium 1 gm/ (Sodium Chloride) 50 mls @ 100 mls/hr IV Q24H [facility] Last Infusion: 03/08/22 17:41 Dose: 0 mls/hr Documented By: GOPAL Doxycycline Hyclate 100 mg/ (Sodium Chloride) 250 mls @ 166.67 mls/hr IV Q12H [facility] Last Infusion: 03/09/22 04:49 Dose: 166.67 mls/hr Documented By: MARCOS Multivitamins/Vitamin C (Multivitamin Tablet) 1 tab PO DAILY [facility] Last Admin: 03/09/22 10:26 Dose: 1 tab Documented By: SALLIE Nifedipine (Nifedipine Er 60 Mg Tab.Er.24) 60 mg PO BEDTIME [facility] Last Admin: 03/08/22 20:23 Dose: 60 mg Documented By: BRAIN Omeprazole (Omeprazole 40 Mg Capsule.) 40 mg PO DAILY@0630 [facility] Last Admin: 03/09/22 05:51 Dose: 40 mg Documented By: MARCOS Pharmacy Consult (Consult Rx Perform Med Rec) 1 each MISCELLANE ONCE PRN PRN Reason: Consult order Sodium Chloride (0.9 % Sodium Chloride Flush 3 Ml Syringe) 3 ml IVFLUSH QSHIFT [facility] Last Admin: 03/09/22 05:52 Dose: 3 ml Documented By: MARCOS Valsartan (Valsartan 160 Mg Tablet) 160 mg PO DAILY [facility] Last Admin: 03/09/22 10:26 Dose: 160 mg Documented By: SALLIE Vitamin D (Cholecalciferol (Vitamin D3) 25 Mcg Tablet) 50 mcg PO DAILY@1800 [facility] Last Admin: 03/08/22 19:32 Dose: 50 mcg Documented By: BRAIN Labs CBC & Chem 7: 03/09/22 05:33 03/09/22 05:33 Labs: Laboratory Results - last 24 hr 03/09/22 03/09/22 05:33 05:33 MCV 91.7 MCH 29.3 MCHC 32.0 RDW 15.5 Plt Count 267 MPV 8.9 L Immature Gran % (Auto) 1.4 H Neut % (Auto) 78.7 H Lymph % (Auto) 11.5 L [place] % (Auto) 5.6 Eos % (Auto) 2.0 Baso % (Auto) 0.8 Lymph # (Auto) 0.4 L [place] # (Auto) 0.2 Eos # (Auto) 0.1 Baso # (Auto) 0.0 Abs Immat Gran (auto) 0.05 H Absolute Neuts (auto) 2.8 Absolute Nucleated RBC 0.000 Nucleated RBC % (auto) 0.0 Anion Gap 12 Estim Creat Clear Calc 42.8 Estimated GFR > 60 Fasting Glucose 95 Calcium 8.5 Total Bilirubin 0.5 AST 25 ALT 15 Alkaline Phosphatase 54 Total Protein 6.0 L Albumin 2.8 L Assessment and Plan (1) Right lower lobe pneumonia: Status: Acute (2) Shortness of breath: Status: Acute Plan 86-year-old female presents to the emergency room today with worsening shortness of breath over the last 5 days. states over the last 2 days has developed 2 pi llow orthopnea.? Denies fever chills.? ER chest x-ray; right lower and mid lung pneumonias. 1. Pneumonia Chest x-ray showed Right mid/ lower lobe infiltrate - feeling better, shortness of breath improving, continue iv ceftriaxone/doxycycline normal cbc, no fevers - switch to Ceftin/p.o. doxy upon discharge -continue p.r.n. DuoNebs, cough medications as needed 2.Hypertension - acceptable control on current therapies 3.Chronic? diastolic heart failure, no evidence of acute CHF BNP 123 - continue Coreg/ hydralazine/ nifedipine/ olmesartan 4. GERD - continue PPI ?Lovenox ?Full Code ?patient will require continued inpatient hospitalization for IV antibiotics to treat pneumonia.? This cannot be? achieved at a lesser acute setting Quality Stroke Does the patient have a stroke diagnosis?: No VTE Prior VTE?: No VTE Risk Level:: Medical - moderate - high VTE Device Contraindication: Treatment Not Indicated VTE Drug Contraindication: N/A - Med Ordered
--- NOTE | 2022-03-09 15:37 | MHC.CM.PN ---
Met with pt to discuss d/c planning: pt resides w/spouse, has no services or equipment and no barriers to care. Pt's spouse to transport home: Vax x 3, HCP copy requested: IMM signed: in [facility] chart.
[2022-03-09] MEDS: cefTRIAXone sodium 1 GM in 0.9 % Sodium Chloride 50 ML IV (15:59)
[2022-03-09] MEDS: Enoxaparin Sodium 40 MG/0.4 ML SYRINGE SUBCUT (15:59)
[2022-03-09 16:00] VITALS: BP 132/46; PULSE 66; RESP 16; TEMP 36.6; O2SAT 95
[2022-03-09] MEDS: Ascorbic Acid 500 MG TABLET PO (18:24)
[2022-03-09] MEDS: Ferrous Sulfate 324 MG TABLET.DR PO (18:24)
[2022-03-09] MEDS: Cholecalciferol (Vitamin D3) 25 MCG TABLET 50 MCG PO (18:24)
[2022-03-09 20:00] VITALS: BP 126/43; PULSE 75; RESP 16; TEMP 36.6; O2SAT 95
[2022-03-09] MEDS: NIFEdipine ER 60 MG TAB.ER.24 PO (21:21)
[2022-03-09] MEDS: Atorvastatin Calcium 20 MG TABLET PO (21:21)
[2022-03-09 23:15] VITALS: BP 129/53; PULSE 74; RESP 16; TEMP 36.8; O2SAT 98
[2022-03-10 04:34] VITALS: BP 143/54; PULSE 67; RESP 16; TEMP 36.9; O2SAT 95
[2022-03-10] MEDS: Acetaminophen 325 MG TABLET 650 MG PO (04:43)
[2022-03-10] MEDS: Doxycycline Hyclate 100 MG in 0.9 % Sodium Chloride 250 ML 166.67 MG IV (04:44)
[2022-03-10 06:32] LABS: MANUAL DIFF FLAG NO
[2022-03-10 06:37] LABS: Basophils Percent Auto 0.8 % (0-2); Eosinophils Absolute Auto 0.1 X10*3/uL (0.0-0.4); Eosinophils Percent Auto 2.9 % (0-4); Hemoglobin 9.1 g/dl (12.0-16.0); Imm Gran Abs Auto 0.06 X10*3/uL (0.00-0.03); Imm Gran Pct Auto 1.6 % (0.0-0.4); Lymphocytes Absolute Auto 0.4 X10*3/uL (1.2-4.9); Lymphocytes Percent Auto 10.9 % (20-40); Mean Corpuscular HGB Conc 31.4 g/dl (31.0-35.0); Mean Corpuscular Hemoglobin 28.3 pg (27.0-33.0); Mean Corpuscular Volume 90.3 fL (80.0-98.0); Mean Platelet Volume 8.7 fL (9.4-12.3); Monocytes Absolute Auto 0.3 X10*3/uL (0.1-1.2); Monocytes Percent Auto 6.6 % (2-11); Neutrophils Absolute Auto 2.9 x10*3/uL (2.0-8.3); Neutrophils Percent Auto 77.2 % (45-73); Platelet Count 270 X10*3/uL (160-400); Red Blood Count 3.21 X10*6/uL (4.20-5.50); Red Cell Distribution Width 15.4 % (11.0-16.0); White Blood Count 3.8 X10*3/uL (4.8-10.8)
[2022-03-10 08:03] VITALS: BP 135/60; PULSE 69; RESP 18; TEMP 36.9; O2SAT 93
[2022-03-10] MEDS: Omeprazole 40 MG CAPSULE.DR PO (08:39)
[2022-03-10] MEDS: hydrALAZINE HCl 50 MG TABLET PO (08:39)
[2022-03-10] MEDS: Docusate Sodium 100 MG CAPSULE PO (08:40)
[2022-03-10] MEDS: Multivitamin TABLET 1 TAB PO (08:40)
[2022-03-10] MEDS: 0.9 % Sodium Chloride Flush 3 ML SYRINGE IVFLUSH (08:41)
[2022-03-10] MEDS: Furosemide 20 MG TABLET PO (08:49)
[2022-03-10] MEDS: carvediloL 3.125 MG TABLET PO (08:49)
[2022-03-10] MEDS: Valsartan 160 MG TABLET PO (08:59)
--- NOTE | 2022-03-10 10:30 | PM.DS ---
DS: Providers Provider Date of Service: 03/10/22 Date of admission: 03/08/22 14:43 Primary care physician: Uri Houston MD DS: Diagnosis Discharge Diagnosis (1) Right lower lobe pneumonia: Status: Acute (2) Shortness of breath: Status: Acute DS: Summary Hospital Course Hospital Course: History of presenting illness Date of Service: 03/08/22 Chief Complaint: shortness of breath Patient is an 86 year old female presenting to the emergency department today with increased shortness of breath. Patient states that since Saturday, she has significantly worse shortness of breath. Patient states that she is breathing quickly while at rest and when she walks, she can only make it a couple of feet before having to stop to catch her breath. 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 Patient states that she is requiring multiple pillows when lying down and can't lie flat without feeling like she is suffocating. Patient states that her SOB is significantly worse at night. Patient states that she takes lasix, 20mg 5 days a week ER Course: ?CTA negative for pulmonary emboli; chest x-ray demonstrates right mid and lower lobe infiltrate Hospital course 86-year-old female presents to the emergency room with worsening shortness of breath over the last 5 days. states over the last 2 days has developed 2 pillow orthopnea.? Denies fever chills.? ER chest x-ray; right lower and mid lung pneumonias, CTA negative for PE patient admitted to medical floor and placed on IV ceftriaxone doxycycline, patient WBC remained normal she has had no fever chills, since patient remains hemodynamically stable and shortness of breath has improved after she is being discharged home on by mouth Ceftin and doxycycline to finish 7 day course of antibiotic, she has been recommended to tolerate activity as tolerated further workup including BMP and clinical examination was not suggestive of congestive heart failure she has been continued on home dose of Lasix. In regard to hypertension she has been continued on home medications. For history of chronic diastolic heart failure there was no evidence of acute CHF BNP was 123 she has been continued on Coreg, hydralazine nifedipine and olmesartan GERD continue PPI Time Spent with Patient Time attestation: Total time spent providing and/or coordinating discharge services: Discharge coordination time: Greater than 30 minutes Quality: Safe Use of Opioids Does Pt have an Active Cancer Diagnosis on the Problem List?: No Quality: Stroke Does the patient have a stroke diagnosis?: No Physical Exam Vital Signs: Vital Signs: Last Vital Signs Temp 98.5 F 03/10/22 08:03 Pulse 69 03/10/22 08:03 Resp 18 03/10/22 08:03 BP 135/60 03/10/22 08:03 Pulse Ox 93 03/10/22 08:03 O2 Del Method 03/10/22 08:03 BMI result Body Mass Index 26.5 Const: Other: General awake alert x3, in no acute distress.? Neck no JVD. CVS? regular rate rhythm, Respiratory lungs clear breath sounds, no respiratory distress, no wheeze, no rhonchi. Gastrointestinal abdomen soft, nontender, bowel sounds audible, no guarding , no rigidity. Extremities no edema. Neuro nonfocal Skin no rash Psych appropriate affect DS: Data Data Completed and Pending Labs on day of discharge: Laboratory Results - last 24 hr 03/08/22 03/10/22 10:51 06:11 WBC 3.8 L RBC 3.21 L Hgb 9.1 L Hct 29.0 L MCV 90.3 MCH 28.3 MCHC 31.4 RDW 15.4 Plt Count 270 MPV 8.7 L Immature Gran % (Auto) 1.6 H Neut % (Auto) 77.2 H Lymph % (Auto) 10.9 L Atlantic % (Auto) 6.6 Eos % (Auto) 2.9 Baso % (Auto) 0.8 Lymph # (Auto) 0.4 L [place] # (Auto) 0.3 Eos # (Auto) 0.1 Baso # (Auto) 0.0 Abs Immat Gran (auto) 0.06 H Absolute Neuts (auto) 2.9 Absolute Nucleated RBC 0.000 Nucleated RBC % (auto) 0.0 VBG pH 7.47 H VBG pCO2 36 VBG pO2 98 VBG HCO3 27 H VBG O2 Saturation 99.0 VBG Base Excess 3.9 Discharge Plan Discharge Patient Disposition: Home, Self-Care Discharge Diagnosis: Community acquired pneumonia Referrals: Uri Houston MD [Primary Care Provider] - 1 Week Discharge Medications: New cefuroxime axetil 500 mg tablet 500 mg PO Q12H Qty: 8 0RF doxycycline hyclate 100 mg capsule 100 mg PO BID Qty: 8 0RF magnesium oxide 400 mg magnesium capsule 400 mg PO DAILY Qty: 30 0RF Continued omeprazole 40 mg capsule,delayed release(DR/EC) 40 mg PO DAILY@0630 simvastatin 40 mg tablet 40 mg PO BEDTIME olmesartan 40 mg tablet 40 mg PO DAILY multivitamin Tablet 1 tab PO DAILY ferrous sulfate 325 mg (65 mg iron) Tablet 325 mg PO DAILY@1800 cholecalciferol (vitamin D3) 50 mcg (2,000 unit) Tablet 50 mcg PO DAILY@1800 ascorbic acid (vitamin C) 500 mg tablet 500 mg PO DAILY@1800 docusate sodium [Colace] 100 mg capsule 100 mg PO DAILY carvedilol 3.125 mg tablet 3.125 mg PO DAILY@0900,1800 Protocol: Hold for SBP/HR < HOLD for SBP < : 90 HOLD for HR < : 60 furosemide 20 mg tablet 20 mg PO MOTUWEFRSA@0900 nifedipine 60 mg tablet extended release 60 mg PO BEDTIME acetaminophen 500 mg Tablet 1,000 mg PO Q6H PRN (Reason: Pain) hydralazine 50 mg tablet 50 mg PO TID Discharge Orders: Discharge Order (Routine); Ordered 03/10/22 Ordered By: Augustine Elias Diet: Low fat, low cholesterol Activity on Discharge: As tolerated Stand Alone Forms: Patient Portal Discharge page Print Language: [place] Care Plan Goals: Take by mouth Ceftin 500 mg twice daily and doxycycline for 4 more days activity as tolerated take magnesium 400 mg at bedtime Health Concerns: Take all home medications as before Plan of Treatment: Follow-up with PCP Assessment: As per discharge summary
== END 2022-03-10 13:01 | disposition home or self-care (01) | DRG 194 ==
LOC: HO.ED 14:41 → HO.EDOVER 14:49
PROVIDERS: Emergency Medicine Emergency Medical Services; Physician Assistant Medical; Admitting Provider Hospitalist; Emergency Provider Emergency Medicine; PCP Internal Medicine; Visit Provider Hospitalist
DX: J18.9 Pneumonia, unspecified organism (principal); I50.32 Chronic diastolic (congestive) heart failure; I11.0 Hypertensive heart disease with heart failure; K21.9 Gastro-esophageal reflux disease without esophagitis; Z20.822 Contact with and (suspected) exposure to COVID-19; Z87.891 Personal history of nicotine dependence; Z88.8 Allergy status to other drugs, medicaments and biological substances; Z79.899 Other long term (current) drug therapy
CPT/HCPCS: 36415; 71046; 71275; 80053; 81003; 82803; 83690; 83880; 84484; 85025; 85379; 85610; 85730; 87635; 93005; 99285; J0696; J1650; Q9967

== ENCOUNTER 2022-03-21 08:28 | Outpatient (REF) | payer MEDICARE, OTHER, SELFPAY ==
--- NOTE | 2022-03-21 09:20 | PM.OP ---
Brief Operative Note Date of Service: 03/21/22 Pre-op diagnosis: Multinodular Thyroid Procedure: This is doctor Ann Slater. This is an ultrasound-guided fine-needle aspiration report. Date of Examination: Indication: Multinodular Thyroid Porcedure: Procedure was explained to the patient. Alternatives, the risk and benefits were discussed. Written consent was obtained. A time-out was also obtained. After sterile preparation, fine-needle aspiration of a left lower pole 3.0 cm thyroid nodule was performed using direct ultrasound guidance to confirm accurate needle placement. Five aspirations were made using 27 gauge needles. An additional 1 aspiration was made with a 25 guage needle. Samples were submitted for cytology. Two passes were dedicated for [employer] Gene sequencing prints and drawings curator testing. The patient tolerated the procedure well. Aftercare instructions were provided. Impression: Uncomplicated fine needle aspiration biopsy of a left lower pole 3.0 cm thyroid nodule under ultrasound guidance. Surgeon: Ann Slater, DO Was an It Security Manager used for this Procedure?: No Estimated blood loss (mL): 1
[2022-03-21] MEDS: Lidocaine HCl 1 % MPF 5 ML VIAL 2 ML SUBCUT (09:56)
== END 2022-03-21 08:29 | disposition home or self-care (01) ==
LOC: HO.US 08:28
PROVIDERS: Visit Provider Internal Medicine
DX: E04.2 Nontoxic multinodular goiter (principal)
CPT/HCPCS: 10005; 88173; 88305

== ENCOUNTER 2022-04-20 11:52 | Outpatient (REF) | payer MEDICARE, OTHER, SELFPAY ==
--- NOTE | ~2022-04-20 | XR_ITS ---
EXAMINATION: XR CHEST 2 VIEWS CLINICAL INFORMATION: History of pneumonia. COMPARISON: Chest radiograph dated 03/08/2020; CTA chest dated 03/08/2022. TECHNIQUE: Frontal and lateral views of the chest were obtained. FINDINGS: The heart, great vessels, pulmonary vasculature and mediastinum are normal. There is atherosclerotic calcification of the aortic knob. The previously appreciated mid right lung nodule is faintly redemonstrated, overlapping the anterior right sixth rib on the frontal view. The lungs show no new focal infiltrate, effusion or pneumothorax. There is no acute osseous abnormality. There is multi-level thoracolumbar spondylosis. There is a moderate thoracolumbar dextroscoliosis. XR/XR chest 2V IMPRESSION: 1. No new focal infiltrate or congestive heart failure is seen. 2. The previously noted mid right lung nodule is faintly redemonstrated and is seen to better advantage with CT. Of note, this was also poorly appreciated radiographically on 03/08/2022. Please see follow-up recommendations of the report for the CTA chest dated 03/08/2022.
== END 2022-04-20 11:53 | disposition home or self-care (01) ==
LOC: HO.XRAY 11:52
PROVIDERS: PCP Internal Medicine; Visit Provider Internal Medicine
DX: J18.8 Other pneumonia, unspecified organism (principal)
CPT/HCPCS: 71046

== ENCOUNTER → 2022-05-01 12:40 | Outpatient (BNVA) | payer MEDICARE, OTHER, SELFPAY | PROVIDERS: PCP Internal Medicine; Visit Provider Hospitalist | DX: J44.9 Chronic obstructive pulmonary disease, unspecified (principal); R91.8 Other nonspecific abnormal finding of lung field; R06.02 Shortness of breath | CPT/HCPCS: 94618; 99212 ==

== ENCOUNTER 2022-05-15 12:09 | Outpatient (REF) | payer MEDICARE, OTHER, SELFPAY ==
--- NOTE | ~2022-05-15 | PE_ITS ---
EXAMINATION: Fluorine-18 FDG PET/CT Scan CLINICAL INDICATION: Initial treatment management. Right middle lobe lung nodule. PROCEDURE: 56 minutes following the intravenous administration of 16.2 mCi of fluorine 18 FDG, images from the base of the skull to the mid thighs were obtained using a combined PET/CT scanner with CT scan based attenuation correction. No intravenous contrast was administered. Transverse, coronal, sagittal, and volume reconstruction projections were obtained. The patient's blood glucose could not be estimated since the glucometer was not working. The radiotracer was injected intravenously through right hand superficial vein, without any complications. Total CT exam dose-length product 306.24 mGy-cm * These CT images were obtained using dose optimization techniques as appropriate, variously including the following: Automated exposure control * Adjustment of mA and/or kV according to patient size (this includes techniques or standardized protocols for targeted exams where dose is matched to indication/reason for exam; i.e. extremities or head) * Use of iterative reconstruction technique COMPARISON: CTA of the chest done on 03/08/[address] of the chest done on 12/08/2021. FINDINGS: NECK AND VISUALIZED HEAD: Stable hypodense non-FDG avid nodule is noted within the left lobe of the thyroid gland, measures approximately 3 cm at its maximum dimension. No FDG avid disease. THORAX: The index noncalcified circumscribed solid nodule measuring approximately 1.7 x 1.3 cm, seen within the right middle lobe laterally shows mild FDG avidity (77/223) with SUV max of 3.1 (background blood pool SUV max measures 2.3). Significant emphysematous disease is present bilaterally. No additional suspicious lung nodule on either side. No evidence of any FDG avid mediastinal or hilar lymphadenopathy. Interval development of bilateral small pleural effusions without any FDG avidity, new since prior study dated 03/08/2022. ABDOMEN AND PELVIS: No FDG avid disease is present. Specifically, no FDG avid disease is noted within the liver or adrenal glands. MUSCULOSKELETAL: No suspicious FDG avid disease. VASCULAR: Diffuse atherosclerotic disease of the aorta and its branches without evidence of any aneurysm formation. PET/PET CT fusion skull to thigh IMPRESSION: 1. Previously documented, clinically known index noncalcified circumscribed solid nodule measuring approximately 1.7 cm at its maximum dimension within the right middle lobe laterally shows mild FDG avidity with SUV max of 3.1, suspicious for neoplasm. 2. No evidence of any FDG avid mediastinal or hilar lymphadenopathy or extrathoracic disease. 3. Incidental note is made of bilateral small non-FDG avid pleural effusions, new since prior study dated 03/08/2022. 4. Persistent stable non-FDG avid 3 cm hypodense nodule within the left lobe of the thyroid gland. Please note that the sensitivity of the study could potentially be limited since the blood sugar level could not be estimated (the glucometer apparently was not working).
== END 2022-05-15 12:10 | disposition home or self-care (01) ==
LOC: HO.PET 12:09
PROVIDERS: Visit Provider Hospitalist
DX: Z13.89 Encounter for screening for other disorder (principal)

== ENCOUNTER → 2022-05-28 14:53 | Outpatient (BNVA) | payer MEDICARE, OTHER, SELFPAY | PROVIDERS: PCP Internal Medicine; Visit Provider Hospitalist | DX: J44.9 Chronic obstructive pulmonary disease, unspecified (principal); R91.8 Other nonspecific abnormal finding of lung field; J42 Unspecified chronic bronchitis; R06.02 Shortness of breath | CPT/HCPCS: 94618; 99212 ==

== ENCOUNTER → 2022-06-18 15:05 | Outpatient (BNVA) | payer MEDICARE, OTHER, SELFPAY | PROVIDERS: PCP Internal Medicine; Referring Provider Internal Medicine; Visit Provider Internal Medicine Cardiovascular Disease | DX: I11.0 Hypertensive heart disease with heart failure (principal); I50.9 Heart failure, unspecified | CPT/HCPCS: 99212 ==

== ENCOUNTER 2022-06-21 11:50 | Outpatient (REF) | payer MEDICARE, OTHER, SELFPAY ==
[2022-06-21 12:09] LABS: MANUAL DIFF FLAG NO
[2022-06-21 12:22] LABS: Basophils Percent Auto 0.7 % (0-2); Eosinophils Absolute Auto 0.1 X10*3/uL (0.0-0.4); Eosinophils Percent Auto 1.7 % (0-4); Hematocrit 32.2 % (37.0-47.0); Hemoglobin 10.2 g/dl (12.0-16.0); Imm Gran Abs Auto 0.04 X10*3/uL (0.00-0.03); Lymphocytes Absolute Auto 0.4 X10*3/uL (1.2-4.9); Lymphocytes Percent Auto 9.9 % (20-40); Mean Corpuscular HGB Conc 31.7 g/dl (31.0-35.0); Mean Corpuscular Hemoglobin 27.9 pg (27.0-33.0); Mean Corpuscular Volume 88.2 fL (80.0-98.0); Mean Platelet Volume 8.5 fL (9.4-12.3); Monocytes Absolute Auto 0.2 X10*3/uL (0.1-1.2); Monocytes Percent Auto 3.8 % (2-11); Neutrophils Absolute Auto 3.5 x10*3/uL (2.0-8.3); Neutrophils Percent Auto 82.9 % (45-73); Platelet Count 300 X10*3/uL (160-400); Red Blood Count 3.65 X10*6/uL (4.20-5.50); Red Cell Distribution Width 17.1 % (11.0-16.0); White Blood Count 4.2 X10*3/uL (4.8-10.8)
[2022-06-21 12:43] LABS: Anion Gap 10 (12-20); Blood Urea Nitrogen 20 mg/dL (9-16); Calcium 8.5 mg/dL (8.4-10.2); Carbon Dioxide 25 mmol/L (22-29); Chloride 100 mmol/L (96-108); Estimated Glomerular Filt Rate > 60; Glucose Random 104 mg/dL (60-115); Potassium 3.5 mmol/L (3.3-5.1); Sodium 131 mmol/L (135-145)
== END 2022-06-21 11:51 | disposition home or self-care (01) ==
LOC: HO.LAB 11:50
PROVIDERS: PCP Internal Medicine; Visit Provider Hospitalist
DX: R91.8 Other nonspecific abnormal finding of lung field (principal); R06.02 Shortness of breath; J44.9 Chronic obstructive pulmonary disease, unspecified
CPT/HCPCS: 36415; 80048; 85025; 99212

== ENCOUNTER 2022-06-25 09:51 | Outpatient (REF) | payer MEDICARE, OTHER, SELFPAY ==
--- NOTE | ~2022-06-25 | MM_ITS ---
EXAMINATION: MM SCREENING DIGITAL BREAST TOMOSYNTHESIS, BILATERAL CLINICAL INFORMATION: Screening. Asymptomatic. COMPARISON: Mammography: 06/12/2021, 06/08/2020, 01/29/2019 TECHNIQUE: Digital breast tomosynthesis is performed in both the craniocaudal and mediolateral oblique views along with computer-aided detection (CAD). Synthesized 2D images are generated from the tomosynthesis. FINDINGS: There are scattered areas of fibroglandular density (ACR BI-RADS breast composition Category b). Breast tissue composition is decreased in density when compared with prior exams. There is no developing density or architectural abnormality. There are no significant masses, abnormal calcifications, or other abnormalities. The axilla and skin contours are unremarkable. MM/MM tomosynthesis screening BI IMPRESSION: No mammographic evidence of malignancy. ASSESSMENT: BI-RADS 2: Benign RECOMMENDATION: Routine annual mammography screening. This patient's information was entered into a reminder system with a target due date for their next mammogram.
== END 2022-06-25 09:52 | disposition home or self-care (01) ==
LOC: HO.MAMMO 09:51
PROVIDERS: PCP Internal Medicine; Visit Provider Internal Medicine
DX: Z12.31 Encounter for screening mammogram for malignant neoplasm of breast (principal)
CPT/HCPCS: 77063; 77067

== ENCOUNTER 2022-06-26 08:49 | Day surgery (SDC) | payer MEDICARE, OTHER, SELFPAY ==
[2022-06-26] VITALS (9 sets, daily range): BP systolic 101–144; BP diastolic 44–64; PULSE 65–75; RESP 18–22; TEMP 36.4; O2SAT 92–95; BMI 24.8
--- NOTE | ~2022-06-26 | XR_ITS ---
EXAMINATION: XR CHEST CLINICAL INFORMATION: Post right lung biopsy COMPARISON: CT biopsy right lung same date TECHNIQUE: 2 views of the chest were obtained. FINDINGS: Inspiration and expiration views obtained which show no pneumothorax. Patchy interstitial opacities again observed. Heart size is borderline with slight distention of the pulmonary vessels. satellite project site monitor leads are present. XR/XR chest 2V IMPRESSION: No pneumothorax.
--- NOTE | ~2022-06-26 | CT_ITS ---
PROCEDURE: CT GUIDED BIOPSY, LUNG CLINICAL INFORMATION: Right lung nodule. COMPARISON: CT PET study 05/15/2022. TECHNIQUE: Following an explanation of a CT fluoroscopy-guided right lung nodule biopsy procedure, benefits and risk, a written consent was obtained. Patient was placed supine on CT fluoroscopy table and preliminary CT imaging was obtained of the right upper lobe. Lead markers were placed along the right lateral chest and repeat CT imaging was performed. An optimal lead marker was selected and marked on the skin. The area was cleaned and draped in the usual sterile manner with 2% chlorhexidine solution. Then 2% lidocaine was injected at the skin and along the path of the needle to be inserted. Through a small skin incision, a 20-gauge 10 cm guide needle was advanced from the skin to the right lateral chest wall adjacent to the right nodule. Coaxially a 20-gauge biopsy gun was administered and a 3 pass core biopsy was performed. After confirming adequate amount of tissue from the pathologist, the needle and the guidewire were removed and complete hemostasis achieved at puncture site. Sterile dressing applied postprocedure. There was no bleeding. Repeat CT imaging was obtained through the upper chest. Chest x-ray was to be obtained in 2 hours prior to discharge. Conscious sedation was administered and patient monitored for 25 minutes by the IR nurse and the radiologist during the exam. This CT examination was performed using dose optimization techniques as appropriate, variously including the following: *Automated exposure control *Adjustment of mA and/or kV according to patient size (this includes techniques or standardized protocols for targeted exams where dose is matched to indication/reason for exam; i.e. extremities or head) *Use of iterative reconstruction technique DLP: 390. mGy-cm FINDINGS: On CT imaging there is a well defined right upper lobe nodule, subpleural-based measuring 1.6 x 2.1 cm. There is small bilateral posterior pleural basilar thickening. There is diffuse emphysematous changes of both lungs. Heart size normal. CT fluoroscopy-guided right upper lobe lung nodule biopsy performed x3. Repeat CT imaging on the table revealed no pneumothorax. CT/CT biopsy lung RT IMPRESSION: Successful CT fluoroscopy-guided right upper lobe nodule biopsy performed x3.
[2022-06-26 09:42] LABS: MANUAL DIFF FLAG NO
[2022-06-26 09:45] LABS: Basophils Percent Auto 0.8 % (0-2); Eosinophils Absolute Auto 0.1 X10*3/uL (0.0-0.4); Eosinophils Percent Auto 2.1 % (0-4); Hematocrit 30.4 % (37.0-47.0); Hemoglobin 9.7 g/dl (12.0-16.0); Imm Gran Abs Auto 0.03 X10*3/uL (0.00-0.03); Imm Gran Pct Auto 0.8 % (0.0-0.4); Lymphocytes Absolute Auto 0.4 X10*3/uL (1.2-4.9); Lymphocytes Percent Auto 10.3 % (20-40); Mean Corpuscular HGB Conc 31.9 g/dl (31.0-35.0); Mean Corpuscular Hemoglobin 27.8 pg (27.0-33.0); Mean Corpuscular Volume 87.1 fL (80.0-98.0); Mean Platelet Volume 8.4 fL (9.4-12.3); Monocytes Absolute Auto 0.1 X10*3/uL (0.1-1.2); Monocytes Percent Auto 3.6 % (2-11); Neutrophils Absolute Auto 3.2 x10*3/uL (2.0-8.3); Neutrophils Percent Auto 82.4 % (45-73); Platelet Count 292 X10*3/uL (160-400); Red Blood Count 3.49 X10*6/uL (4.20-5.50); White Blood Count 3.9 X10*3/uL (4.8-10.8)
[2022-06-26 09:50] LABS: Prothrombin Time 11.8 SEC (10.0-13.1)
[2022-06-26 09:52] LABS: Partial Thromboplastin Time 31.2 SEC (26.0-36.4)
[2022-06-26] MEDS: Acetaminophen 325 MG TABLET 650 MG PO (12:49)
== END 2022-06-26 15:37 | disposition home or self-care (01) ==
PROVIDERS: Radiology Diagnostic Radiology; PCP Internal Medicine; Visit Provider Radiology Diagnostic Radiology
DX: R91.8 Other nonspecific abnormal finding of lung field (principal); I11.0 Hypertensive heart disease with heart failure; I50.32 Chronic diastolic (congestive) heart failure; D64.9 Anemia, unspecified; J44.9 Chronic obstructive pulmonary disease, unspecified; Z85.038 Personal history of other malignant neoplasm of large intestine; Z87.891 Personal history of nicotine dependence; Z99.81 Dependence on supplemental oxygen; Z88.8 Allergy status to other drugs, medicaments and biological substances
CPT/HCPCS: 32408; 36415; 71046; 85025; 85610; 85730; 88305; 88333; 99152; 99153; J2250; J3010

== ENCOUNTER 2022-07-09 12:48 | Outpatient (REF) | payer MEDICARE, OTHER, SELFPAY ==
--- NOTE | 2022-07-09 | PFT_ITS ---
FLOWS: FEV1 89% of predicted at 1.33 L. FVC 95% of predicted at 1.93 L. FEV1 to FVC ratio of 0.69. No bronchodilator response except in small to medium airways. LUNG VOLUMES: Total lung capacity 74% of predicted at 3.42 L. Residual volume 64% of predicted at 1.50 L. Slow vital capacity 84% of predicted at 1.92 L. Expiratory reserve volume 154% of predicted at 0.49 L. Diffusion capacity is severely decreased, diffusion capacity adjust to being moderately decreased after correction for alveolar ventilation. IMPRESSION: Combined mild obstructive and mild restrictive ventilatory defect. No bronchodilator response except in small to medium airways. Decreased diffusion capacity suggests emphysema. Rigoberto Roblero MD AP/MODL / [phone]
== END 2022-07-09 12:49 | disposition home or self-care (01) ==
LOC: HO.RESP 12:48
PROVIDERS: PCP Internal Medicine; Visit Provider Hospitalist
DX: J44.9 Chronic obstructive pulmonary disease, unspecified (principal)
CPT/HCPCS: 94060; 94727; 94729

== ENCOUNTER 2022-08-16 08:46 | Outpatient (REF) | payer MEDICARE, OTHER, SELFPAY ==
[2022-08-16 09:02] LABS: MANUAL DIFF FLAG NO
[2022-08-16 09:29] LABS: Basophils Percent Auto 0.7 % (0-2); Eosinophils Absolute Auto 0.1 X10*3/uL (0.0-0.4); Eosinophils Percent Auto 1.4 % (0-4); Hematocrit 33.2 % (37.0-47.0); Hemoglobin 10.3 g/dl (12.0-16.0); Imm Gran Abs Auto 0.04 X10*3/uL (0.00-0.03); Imm Gran Pct Auto 0.9 % (0.0-0.4); Lymphocytes Absolute Auto 0.3 X10*3/uL (1.2-4.9); Lymphocytes Percent Auto 7.5 % (20-40); Mean Corpuscular Hemoglobin 27.4 pg (27.0-33.0); Mean Corpuscular Volume 88.3 fL (80.0-98.0); Mean Platelet Volume 8.5 fL (9.4-12.3); Monocytes Absolute Auto 0.1 X10*3/uL (0.1-1.2); Monocytes Percent Auto 2.8 % (2-11); Neutrophils Absolute Auto 3.7 x10*3/uL (2.0-8.3); Neutrophils Percent Auto 86.7 % (45-73); Platelet Count 349 X10*3/uL (160-400); Red Blood Count 3.76 X10*6/uL (4.20-5.50); Red Cell Distribution Width 16.4 % (11.0-16.0); White Blood Count 4.3 X10*3/uL (4.8-10.8)
[2022-08-16 10:40] LABS: Alanine Aminotransferase 10 U/L (0-31); Albumin Level 2.9 g/dL (3.5-5.0); Alkaline Phosphatase 68 U/L (39-117); Anion Gap 10 (12-20); Aspartate Amino Transferase 20 U/L (5-31); Bilirubin Total 0.5 mg/dL (0.0-1.0); Blood Urea Nitrogen 24 mg/dL (9-16); Calcium 8.9 mg/dL (8.4-10.2); Carbon Dioxide 24 mmol/L (22-29); Chloride 103 mmol/L (96-108); Estimated Glomerular Filt Rate > 60; Glucose Random 108 mg/dL (60-115); Sodium 133 mmol/L (135-145); Total Protein 7.4 g/dL (6.5-8.0)
[2022-08-16 10:56] LABS: Free T4 (Free Thyroxine) 1.05 ng/dL (0.71-1.85); Thyroid Stimulating Hormone 2.96 uIU/mL (0.32-4.0)
== END 2022-08-16 08:47 | disposition home or self-care (01) ==
LOC: HO.LAB 08:46
PROVIDERS: PCP Internal Medicine; Visit Provider Internal Medicine
DX: R73.01 Impaired fasting glucose (principal); K21.9 Gastro-esophageal reflux disease without esophagitis; I12.9 Hypertensive chronic kidney disease with stage 1 through stage 4 chronic kidney disease, or unspecified chronic kidney disease; N18.32 Chronic kidney disease, stage 3b
CPT/HCPCS: 36415; 80053; 84439; 84443; 85025

== ENCOUNTER → 2022-08-22 10:01 | Outpatient (BNVA) | payer MEDICARE, OTHER, SELFPAY | PROVIDERS: PCP Internal Medicine; Visit Provider Hospitalist | DX: R91.8 Other nonspecific abnormal finding of lung field (principal); J44.9 Chronic obstructive pulmonary disease, unspecified; G47.00 Insomnia, unspecified; R06.02 Shortness of breath | CPT/HCPCS: 99212 ==

== ENCOUNTER → 2022-08-29 14:18 | Outpatient (BNVA) | payer MEDICARE, OTHER, SELFPAY | PROVIDERS: PCP Internal Medicine; Referring Provider Internal Medicine; Visit Provider Internal Medicine Cardiovascular Disease | DX: I11.0 Hypertensive heart disease with heart failure (principal); I50.9 Heart failure, unspecified | CPT/HCPCS: 99212 ==

== ENCOUNTER 2022-09-06 09:45 | Outpatient (REF) | payer MEDICARE, OTHER, SELFPAY ==
--- NOTE | ~2022-09-06 | CT_ITS ---
EXAMINATION: CT CHEST WITHOUT CONTRAST CLINICAL INFORMATION: Pulmonary nodules COMPARISON: 06/26/2022 TECHNIQUE: Multidetector volumetric CT imaging of the chest was done. Axial MIP volume rendering provided. Sagittal and coronal reformatted images were obtained. This CT examination was performed using dose optimization techniques as appropriate, variously including the following: *Automated exposure control *Adjustment of mA and/or kV according to patient size (this includes techniques or standardized protocols for targeted exams where dose is matched to indication/reason for exam; i.e. extremities or head) *Use of iterative reconstruction technique DLP: 94 FINDINGS: LUNGS: Moderate emphysema. Redemonstration of a right middle lobe irregular pulmonary nodule, increased in size measuring 1.9 x 1.5 cm (5:253), previously measured 1.7 x 1.3 cm. Left upper lobe lingular linear opacities likely reflect atelectasis versus scarring. Central airways are patent. MEDIASTINUM: No mediastinal adenopathy. Enlargement of the main pulmonary artery measuring 4.2 cm likely reflects underlying pulmonary arterial hypertension.. No significant coronary artery atherosclerotic calcifications. Left inferior pole thyroid hypoattenuating nodule measures 2.6 x 1.8 cm (3:8). PLEURA: Trace bilateral pleural effusions. AXILLA: No lymphadenopathy. UPPER ABDOMEN: Unremarkable. OSSEOUS STRUCTURES/SOFT TISSUES: Degenerative changes of the thoracic spine. CT/CT chest wo IV con IMPRESSION: 1. Interval increase in right middle lobe irregular pulmonary nodule measuring up to 1.9 cm, previously measured 1.7 cm. Given interval increase in size, this is concerning for neoplastic disease. 2. Left inferior pole thyroid hypoattenuating nodule measures 2.6 cm. Recommend thyroid ultrasound if one not yet performed. 3. Trace bilateral pleural effusions. 4. Enlargement of the main pulmonary artery likely reflects underlying pulmonary arterial hypertension.
== END 2022-09-06 09:46 | disposition home or self-care (01) ==
LOC: HO.CT 09:45
PROVIDERS: Visit Provider Hospitalist
DX: R91.8 Other nonspecific abnormal finding of lung field (principal)
CPT/HCPCS: 71250

== ENCOUNTER → 2022-10-24 09:28 | Outpatient (BNVA) | payer MEDICARE, OTHER, SELFPAY | PROVIDERS: PCP Internal Medicine; Visit Provider Hospitalist | DX: J44.9 Chronic obstructive pulmonary disease, unspecified (principal); R91.8 Other nonspecific abnormal finding of lung field; J42 Unspecified chronic bronchitis; R06.02 Shortness of breath; G47.00 Insomnia, unspecified | CPT/HCPCS: 99212 ==

== ENCOUNTER 2022-10-31 13:16 | Emergency (ER) | payer MEDICARE, OTHER, SELFPAY ==
--- NOTE | ~2022-10-31 | XR_ITS ---
EXAMINATION: XR CHEST CLINICAL INFORMATION: Shortness of breath. History of COPD and CHF. COMPARISON: Previous chest CT most recent August 2022 and chest x-ray most recent June 2022 TECHNIQUE: Frontal view of the chest was obtained. FINDINGS: The cardiac silhouette does not appear enlarged. There are increased central bronchovascular markings. No right nodule not well seen. This may overlying the right posterior eighth rib. The lungs are otherwise clear. There is no pleural effusion or pneumothorax. Bony structures are unremarkable. XR/XR chest 1V IMPRESSION: Increased central bronchovascular markings. Differential would include airways disease and mild pulmonary edema. Clinical correlation recommended. Known right pulmonary nodule not well visualized.
[2022-10-31 13:43] VITALS: BP 187/79; PULSE 63; RESP 18; TEMP 36.7; O2SAT 100; BMI 23.2
--- NOTE | 2022-10-31 13:43 | ED.GENADULT ---
HPI - General Adult General Chief complaint: Recheck/Abnormal Lab/Rx <Shirley Jung NP - Last Filed: 10/31/22 13:51> Stated complaint: Hypertension <Shirley Jung NP - Last Filed: 10/31/22 13:51> Time Seen by Provider: 10/31/22 14:49 <Shirley uJng NP - Last Filed: 10/31/22 13:51> Source: patient and EMS <LEORA Palma - Last Filed: 10/31/22 16:28> Mode of arrival: EMS <LEORA Palma - Last Filed: 10/31/22 16:28> Limitations: no limitations <LEORA Plama Last Filed: 10/31/22 16:28> History of Present Illness HPI narrative: 87-year-old female with history of COPD on PRN O2, CHF, GERD, HTN on 6 antihypertensive medications, insomnia, anemia of chronic disease, chronic hyponatremia who presents to the ER from her doctor's office via EMS for evaluation of elevated blood pressure. 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 She reports compliance with all of her home BP meds, except for her Lasix because she did out 1 have the bathroom several times while her doctor's appointment. She denies any chest pain, headaches or vision changes. She does endorse some ongoing SOB and has been needing to wear her oxygen more frequently to get her O2 saturations into the high 90s. She reports since she stopped using [employer] she has gained about 4 lbs. <LEORA Palma - Last Filed: 10/31/22 16:28> MD complaint: HTN <LEORA Palma - Last Filed: 10/31/22 16:28> Onset (ago): hour(s) <LEORA Palma Last Filed: 10/31/22 16:28> Location: chest <LEORA Palma Last Filed: 10/31/22 16:28> Radiation: non-radiation <LEORA Palma Last Filed: 10/31/22 16:28> Severity: mild <LEORA Palma Last Filed: 10/31/22 16:28> Pain Consistency: intermittent <LEORA Palma - Last Filed: 10/31/22 16:28> Relieving factors: none <LEORA Palma - Last Filed: 10/31/22 16:28> Exacerbating factors: none <LEORA Palma - Last Filed: 10/31/22 16:28> Associated symptoms: shortness of breath <LEORA Palma - Last Filed: 10/31/22 16:28> Treatments prior to arrival: none <LEORA Palma - Last Filed: 10/31/22 16:28> Related Data Home medications: Home Medications Medication Instructions Recorded Confirmed cholecalciferol (vitamin D3) 50 50 mcg PO DAILY@1800 06/14/20 10/31/22 mcg (2,000 unit) tablet ferrous sulfate 325 mg (65 mg 325 mg PO DAILY@1800 06/14/20 10/31/22 iron) tablet multivitamin 1 tab PO DAILY 06/14/20 10/31/22 olmesartan 40 mg tablet 40 mg PO DAILY 06/14/20 10/31/22 omeprazole 40 mg capsule,delayed 40 mg PO DAILY@0630 06/14/20 10/31/22 release simvastatin 40 mg tablet 40 mg PO BEDTIME 06/14/20 10/31/22 ascorbic acid (vitamin C) 500 mg 500 mg PO DAILY@1800 11/29/21 10/31/22 tablet docusate sodium 100 mg capsule 100 mg PO DAILY 11/29/21 10/31/22 (Colace) acetaminophen 500 mg tablet 1,000 mg PO Q6H PRN Pain 03/08/22 10/31/22 carvedilol 3.125 mg tablet 3.125 mg PO DAILY@0900,1800 03/08/22 10/31/22 hydralazine 50 mg tablet 50 mg PO TID 08/22/22 10/31/22 Previous Rx's Medication Instructions Recorded fluticasone fur. 100 mcg-umeclid 1 inh inhalation DAILY 30 days #60 05/01/22 62.5 mcg-vilant 25 mcg ea inhalat.powder (Trelegy Ellipta) furosemide 20 mg tablet 20 mg PO .COMPLEX #60 tabs 05/07/22 nifedipine 60 mg tablet,extended 60 mg PO DAILY #90 tabs 07/17/22 release hydralazine 25 mg tablet 25 mg PO TID #100 tabs 10/17/22 trazodone 50 mg tablet 100 mg PO BEDTIME 30 days #60 tabs 10/17/22 <Shirley Jung NP - Last Filed: 10/31/22 13:51> Allergies/adverse reactions: Allergies Allergy/AdvReac Type Severity Reaction Status Date / Time cimetidine [From TAGAMET] Allergy Mild HEADACHES Verified 10/31/22 12:43 lisinopril [LISINOPRIL] Allergy Mild COUGH Verified 10/31/22 12:43 phenytoin [Dilantin] Allergy Unknown rash Verified 10/31/22 12:43 hydrochlorothiazide AdvReac Shortness Verified 10/31/22 12:43 of Breath <Shirley Jung NP - Last Filed: 10/31/22 13:51> Review of Systems Review of Systems: Yes all other systems are reviewed and are negative <LEORA Palma - Last Filed: 10/31/22 16:28> [facility] Past Medical History Medical History: Medical History CHF (congestive heart failure) COPD (chronic obstructive pulmonary disease) GERD (gastroesophageal reflux disease) High cholesterol History of colon cancer (~2002) HTN (hypertension) Insomnia Multinodular thyroid Osteopenia (~2001) Rheumatic fever Subarachnoid bleed <Shirley Jung NP - Last Filed: 10/31/22 13:51> Surgical History: Surgical History History of appendectomy History of bone marrow biopsy History of colonoscopy History of hemicolectomy History of lung biopsy History of tonsillectomy S/P thyroid biopsy <Shirley Jung NP - Last Filed: 10/31/22 13:51> Family History Family History: Family History Father Colon cancer Paternal Aunt Colon cancer Sister Breast cancer <Shirley Jung NP - Last Filed: 10/31/22 13:51> Social History Social History: Social History Household Members: Spouse Housing: House Are you a primary healthcare customer service to a significant other at home: No Do you presently have visiting nurse or other home services: No Alcohol intake: never Patient Tobacco Use Status: Former Tobacco user Quit Date: 1979 Smoked: 20 +/- Advance Directives: No Advance Directives Information Provided: No service: No Current occupational status: retired <Shirley Jung NP - Last Filed: 10/31/22 13:51> Physical Exam ED Vital Signs: Vital Signs - 24 hr 10/31/22 13:43 10/31/22 15:55 Temperature 98.1 F 99.4 F Pulse Rate 63 64 Respiratory Rate 18 20 Blood Pressure 187/79 H 159/58 H Pulse Oximetry 100 99 Oxygen Delivery Method Room Air Nasal Cannula Oxygen Flow Rate 2 BMI result Body Mass Index 23.2 <Shirley Jung NP - Last Filed: 10/31/22 13:51> Vital Signs - 24 hr 10/31/22 13:43 10/31/22 15:55 Temperature 98.1 F 99.4 F Pulse Rate 63 64 Respiratory Rate 18 20 Blood Pressure 187/79 H 159/58 H Pulse Oximetry 100 99 Oxygen Delivery Method Room Air Nasal Cannula Oxygen Flow Rate 2 BMI result Body Mass Index 23.2 <LEORA Palma - Last Filed: 10/31/22 16:28> Appearance: Alert. Oriented X3. No acute distress. Head: normocephalic, atraumatic. Eyes: Pupils equal, round and reactive to light. ENT: Pharynx normal. No tonsillar swelling or exudate. Neck: Normal inspection. Neck supple. CVS: Normal heart rate and rhythm. Pulses normal. Respiratory: No respiratory distress. Breath sounds diminished at bilateral bases, no crackles, Abdomen: Soft and nontender. +BS x4 Skin: Skin warm and dry. Normal skin color. Normal skin turgor. No rashes. Extremities: No lower extremity edema. No joint swelling. Neuro/psych: Oriented X 3. No motor deficit. No sensory deficit. CN II-XII intact. Normal speech and cognition. <LEORA Palma - Last Filed: 10/31/22 16:28> Course Course Course Narrative: This is a rapid medical exam. Deferred additional HPI, ROS, PE to primary provider. 87-year-old female with history of COPD on 2 L of oxygen at baseline, congestive heart failure, hypertension who presents to the ER with reports of high blood pressure. Patient was at a outpatient clinic appointment and was noted to have high blood pressure. She did take all of her morning medications except her furosemide. Patient has no complaints-feels well. Patient reports she has a p.r.n. hydralazine 25 mg home which she takes for blood pressure is over 130. She has scheduled 50 mg of hydralazine for 15:00. I will order labs and an EKG and her dose of hydralazine scheduled and p.r.n. dose for total 75 mg Vitals outside of hypertension in triage <Shirley Jung NP - Last Filed: 10/31/22 13:51> Medications Administered Discontinued Medications Generic Name Dose Route Start Last Admin Trade Name Freq PRN Reason Stop Dose Admin Hydralazine HCl 25 mg 10/31/22 13:46 10/31/22 13:49 Hydralazine Hcl 25 Mg Tablet PO 10/31/22 13:47 25 mg ONCE ONE Administration Protocol Hydralazine HCl 50 mg 10/31/22 13:51 10/31/22 13:54 Hydralazine Hcl 50 Mg Tablet PO 10/31/22 13:52 50 mg ONCE ONE Administration Protocol <Shirley Jung NP - Last Filed: 10/31/22 13:51> Medications Administered Discontinued Medications Generic Name Dose Route Start Last Admin Trade Name Freq PRN Reason Stop Dose Admin Hydralazine HCl 25 mg 10/31/22 13:46 10/31/22 13:49 Hydralazine Hcl 25 Mg Tablet PO 10/31/22 13:47 25 mg ONCE ONE Administration Protocol Hydralazine HCl 50 mg 10/31/22 13:51 10/31/22 13:54 Hydralazine Hcl 50 Mg Tablet PO 10/31/22 13:52 50 mg ONCE ONE Administration Protocol <LEORA Palma - Last Filed: 10/31/22 16:28> Medical Decision Making Medical Decision Making MDM Narrative: 87-year-old female with history of hypertension on multiple medications, CHF, GERD, COPD, anemia of chronic disease who presents to the ER for evaluation of elevated blood pressure 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 Blood pressure was in the 180s. She denies any symptoms at the time. She has been experiencing shortness of breath over last couple of weeks, using her oxygen more. She has had some slight weight gain consistent with CHF exacerbation. On arrival to the ER she is hypertensive 180s systolic with normal SpO2 on her 2 L nasal cannula. She has no JVD or peripheral edema on examination. She was given her usual hydroxyzine afternoon dose and her blood pressure improved to the 150s/50s BNP 347, up from prior levels which range 100 to 200. Chest x-ray without any effusion or overt CHF. At this time comfortable with discharge home with increased dose of Lasix for the next few days, close outpatient follow-up, decrease salt intake. Patient agrees with plan all questions were answered. Return precautions were discussed <LEORA Palma - Last Filed: 10/31/22 16:28> Differential Diagnosis Differential Diagnoses: The differential diagnosis associated with the presentation includes <LEORA Palma - Last Filed: 10/31/22 16:28> Accelerated hypertension, malignant hypertension, medication noncompliance, hypertensive urgency, hypertensive emergency, acute CHF exacerbation <LEORA Palma - Last Filed: 10/31/22 16:28> Lab Data MDM Lab Attestation statement: I reviewed the patient's lab results. <LEORA Palma - Last Filed: 10/31/22 16:28> Stable anemia, acute on chronic hyponatremia most likely due to CHF <LEORA Palma - Last Filed: 10/31/22 16:28> Result Diagrams: 10/31/22 15:08 10/31/22 15:08 <Shirley Jung NP - Last Filed: 10/31/22 13:51> Labs: Lab Results 10/31/22 10/31/22 10/31/22 Range/Units 15:08 15:08 15:08 WBC 6.1 (4.8-10.8) X10*3/uL RBC 3.53 L (4.20-5.50) X10*6/uL Hgb 9.3 L (12.0-16.0) g/dl Hct 29.9 L (37.0-47.0) % MCV 84.7 (80.0-98.0) fL MCH 26.3 L (27.0-33.0) pg MCHC 31.1 (31.0-35.0) g/dl RDW 16.3 H (11.0-16.0) % Plt Count 247 (160-400) X10*3/uL MPV 8.4 L (9.4-12.3) fL Immature Gran % (Auto) 0.8 H (0.0-0.4) % Neut % (Auto) 90.1 H (45-73) % Lymph % (Auto) 4.8 L (20-40) % [place] % (Auto) 2.8 (2-11) % Eos % (Auto) 1.3 (0-4) % Baso % (Auto) 0.2 (0-2) % Lymph # (Auto) 0.3 L (1.2-4.9) X10*3/uL [place] # (Auto) 0.2 (0.1-1.2) X10*3/uL Eos # (Auto) 0.1 (0.0-0.4) X10*3/uL Baso # (Auto) 0.0 (0.0-0.2) X10*3/uL Abs Immat Gran (auto) 0.05 H (0.00-0.03) X10*3/uL Absolute Neuts (auto) 5.5 (2.0-8.3) x10*3/uL Absolute Nucleated RBC 0.000 (0.0-0.012) X10*3/uL Nucleated RBC % (auto) 0.0 (0.0-0.2) /100WBC Smear Tech's Comments VERIFIED Sodium 130 L (135-145) mmol/L Potassium 4.1 (3.3-5.1) mmol/L Chloride 97 (96-108) mmol/L Carbon Dioxide 25 (22-29) mmol/L Anion Gap 12 (12-20) BUN 20 H (9-16) mg/dL Creatinine 0.84 (0.5-1.4) mg/dL Estim Creat Clear Calc 40.5 Estimated GFR > 60 Random Glucose 97 (60-115) mg/dL Calcium 8.7 (8.4-10.2) mg/dL Total Bilirubin 0.5 (0.0-1.0) mg/dL Direct Bilirubin 0.2 (0.0-0.5) mg/dL AST 18 (5-31) U/L ALT 9 (0-31) U/L Alkaline Phosphatase 69 (39-117) U/L Troponin I High Sens 4.6 (<3.5-17.0) ng/L B-Natriuretic Peptide (<100) pg/mL Total Protein 7.3 (6.5-8.0) g/dL Albumin 2.8 L (3.5-5.0) g/dL 10/31/22 Range/Units 15:08 WBC (4.8-10.8) X10*3/uL RBC (4.20-5.50) X10*6/uL Hgb (12.0-16.0) g/dl Hct (37.0-47.0) % MCV (80.0-98.0) fL MCH (27.0-33.0) pg MCHC (31.0-35.0) g/dl RDW (11.0-16.0) % Plt Count (160-400) X10*3/uL MPV (9.4-12.3) fL Immature Gran % (Auto) (0.0-0.4) % Neut % (Auto) (45-73) % Lymph % (Auto) (20-40) % [place] % (Auto) (2-11) % Eos % (Auto) (0-4) % Baso % (Auto) (0-2) % Lymph # (Auto) (1.2-4.9) X10*3/uL [place] # (Auto) (0.1-1.2) X10*3/uL Eos # (Auto) (0.0-0.4) X10*3/uL Baso # (Auto) (0.0-0.2) X10*3/uL Abs Immat Gran (auto) (0.00-0.03) X10*3/uL Absolute Neuts (auto) (2.0-8.3) x10*3/uL Absolute Nucleated RBC (0.0-0.012) X10*3/uL Nucleated RBC % (auto) (0.0-0.2) /100WBC Smear Tech's Comments Sodium (135-145) mmol/L Potassium (3.3-5.1) mmol/L Chloride (96-108) mmol/L Carbon Dioxide (22-29) mmol/L Anion Gap (12-20) BUN (9-16) mg/dL Creatinine (0.5-1.4) mg/dL Estim Creat Clear Calc Estimated GFR Random Glucose (60-115) mg/dL Calcium (8.4-10.2) mg/dL Total Bilirubin (0.0-1.0) mg/dL Direct Bilirubin (0.0-0.5) mg/dL AST (5-31) U/L ALT (0-31) U/L Alkaline Phosphatase (39-117) U/L Troponin I High Sens (<3.5-17.0) ng/L B-Natriuretic Peptide 347 H (<100) pg/mL Total Protein (6.5-8.0) g/dL Albumin (3.5-5.0) g/dL <Shirley Jung, VICE PRESIDENT PAYMENT - Last Filed: 10/31/22 13:51> Lab Results 10/31/22 10/31/22 10/31/22 Range/Units 15:08 15:08 15:08 WBC 6.1 (4.8-10.8) X10*3/uL RBC 3.53 L (4.20-5.50) X10*6/uL Hgb 9.3 L (12.0-16.0) g/dl Hct 29.9 L (37.0-47.0) % MCV 84.7 (80.0-98.0) fL MCH 26.3 L (27.0-33.0) pg MCHC 31.1 (31.0-35.0) g/dl RDW 16.3 H (11.0-16.0) % Plt Count 247 (160-400) X10*3/uL MPV 8.4 L (9.4-12.3) fL Immature Gran % (Auto) 0.8 H (0.0-0.4) % Neut % (Auto) 90.1 H (45-73) % Lymph % (Auto) 4.8 L (20-40) % [place] % (Auto) 2.8 (2-11) % Eos % (Auto) 1.3 (0-4) % Baso % (Auto) 0.2 (0-2) % Lymph # (Auto) 0.3 L (1.2-4.9) X10*3/uL [place] # (Auto) 0.2 (0.1-1.2) X10*3/uL Eos # (Auto) 0.1 (0.0-0.4) X10*3/uL Baso # (Auto) 0.0 (0.0-0.2) X10*3/uL Abs Immat Gran (auto) 0.05 H (0.00-0.03) X10*3/uL Absolute Neuts (auto) 5.5 (2.0-8.3) x10*3/uL Absolute Nucleated RBC 0.000 (0.0-0.012) X10*3/uL Nucleated RBC % (auto) 0.0 (0.0-0.2) /100WBC Smear Tech's Comments VERIFIED Sodium 130 L (135-145) mmol/L Potassium 4.1 (3.3-5.1) mmol/L Chloride 97 (96-108) mmol/L Carbon Dioxide 25 (22-29) mmol/L Anion Gap 12 (12-20) BUN 20 H (9-16) mg/dL Creatinine 0.84 (0.5-1.4) mg/dL Estim Creat Clear Calc 40.5 Estimated GFR > 60 Random Glucose 97 (60-115) mg/dL Calcium 8.7 (8.4-10.2) mg/dL Total Bilirubin 0.5 (0.0-1.0) mg/dL Direct Bilirubin 0.2 (0.0-0.5) mg/dL AST 18 (5-31) U/L ALT 9 (0-31) U/L Alkaline Phosphatase 69 (39-117) U/L Troponin I High Sens 4.6 (<3.5-17.0) ng/L B-Natriuretic Peptide (<100) pg/mL Total Protein 7.3 (6.5-8.0) g/dL Albumin 2.8 L (3.5-5.0) g/dL 10/31/22 Range/Units 15:08 WBC (4.8-10.8) X10*3/uL RBC (4.20-5.50) X10*6/uL Hgb (12.0-16.0) g/dl Hct (37.0-47.0) % MCV (80.0-98.0) fL MCH (27.0-33.0) pg MCHC (31.0-35.0) g/dl RDW (11.0-16.0) % Plt Count (160-400) X10*3/uL MPV (9.4-12.3) fL Immature Gran % (Auto) (0.0-0.4) % Neut % (Auto) (45-73) % Lymph % (Auto) (20-40) % [place] % (Auto) (2-11) % Eos % (Auto) (0-4) % Baso % (Auto) (0-2) % Lymph # (Auto) (1.2-4.9) X10*3/uL [place] # (Auto) (0.1-1.2) X10*3/uL Eos # (Auto) (0.0-0.4) X10*3/uL Baso # (Auto) (0.0-0.2) X10*3/uL Abs Immat Gran (auto) (0.00-0.03) X10*3/uL Absolute Neuts (auto) (2.0-8.3) x10*3/uL Absolute Nucleated RBC (0.0-0.012) X10*3/uL Nucleated RBC % (auto) (0.0-0.2) /100WBC Smear Tech's Comments Sodium (135-145) mmol/L Potassium (3.3-5.1) mmol/L Chloride (96-108) mmol/L Carbon Dioxide (22-29) mmol/L Anion Gap (12-20) BUN (9-16) mg/dL Creatinine (0.5-1.4) mg/dL Estim Creat Clear Calc Estimated GFR Random Glucose (60-115) mg/dL Calcium (8.4-10.2) mg/dL Total Bilirubin (0.0-1.0) mg/dL Direct Bilirubin (0.0-0.5) mg/dL AST (5-31) U/L ALT (0-31) U/L Alkaline Phosphatase (39-117) U/L Troponin I High Sens (<3.5-17.0) ng/L B-Natriuretic Peptide 347 H (<100) pg/mL Total Protein (6.5-8.0) g/dL Albumin (3.5-5.0) g/dL <LEORA Palma Last Filed: 10/31/22 16:28> Independent Interpretation I performed an independent interpretation of an: EKG and Plain X-Ray <LEORA Palma Last Filed: 10/31/22 16:28> Interpretation: EKG with normal sinus rhythm, ventricular rate 66 beats per minute, T-wave inversions in V1, V2, V3. Back in February she did not have T-wave inversions in V2 and V3. Chest x-ray with increased vascular markings, no pleural effusion or overt CHF. <LEORA Palma Last Filed: 10/31/22 16:28> Radiology Impression Discussion of test interpretation with radiology: I have reviewed the radiologist's reading. <LEORA Palma Last Filed: 10/31/22 16:28> Radiologist Impression: XR/XR chest 1V IMPRESSION: Increased central bronchovascular markings. Differential would include airways disease and mild pulmonary edema. Clinical correlation recommended. Known right pulmonary nodule not well visualized. <LEORA Palma Last Filed: 10/31/22 16:28> Independent Historian Clinical information obtained from an independent historian. History obtained from or confirmed by: Spouse <LEORA Palma Last Filed: 10/31/22 16:28> External Record Review External record reviewed: Office record, Outpatient record, Prior outpatient labs and Prior outpatient radiology <LEORA Palma Last Filed: 10/31/22 16:28> Prescription Management I considered prescription management with: Other (Antihypertensives and diuretics) <LEORA Palma Last Filed: 10/31/22 16:28> Chronic Conditions Patient?s care impacted by: Hypertension and Other (CHF and COPD) <LEORA Palma Last Filed: 10/31/22 16:28> Critical Care Time Critical Care Time Critical Care Time: No <LEORA Palma - Last Filed: 10/31/22 16:28> Discharge Plan Discharge Clinical Impression: Hypertension, CHF (congestive heart failure) <Shirley Jung NP - Last Filed: 10/31/22 13:51> Patient Disposition: Home, Self-Care <Shirley Jung NP - Last Filed: 10/31/22 13:51> Instructions: Chronic Hypertension (DC), DASH Eating Plan (ED) <Shirley Jung NP - Last Filed: 10/31/22 13:51> Additional Instructions: Your blood pressure improved with your usual blood pressure medications. Your CHF lab was slightly elevated, this along with your mild weight gain and shortness of breath is consistent with a mild exacerbation of CHF. Recommend taking 2 tablets of your Lasix for the next 3 days. Recommend following up with your primary care doctor as soon as possible Decrease your salt intake Monitor your weights every day If you have worsening shortness of breath or any new or concerning symptoms call 911 or come back to the ER for further evaluation <Shirley Jung NP - Last Filed: 10/31/22 13:51> Prescriptions: No Action furosemide 20 mg tablet 20 mg PO .COMPLEX Qty: 60 3RF Rx Instructions: 20 mg orally 5 days per week only. nifedipine 60 mg tablet extended release 60 mg PO DAILY Qty: 90 3RF hydralazine 25 mg tablet 25 mg PO TID Qty: 100 3RF Rx Instructions: Total daily dose 75 TID. Take one 25 mg and one 50 mg tablet TID. trazodone 50 mg tablet 100 mg PO BEDTIME 30 Days Qty: 60 6RF Rx Instructions: Take 1 hour before sleep omeprazole 40 mg capsule,delayed release(DR/EC) 40 mg PO DAILY@0630 simvastatin 40 mg tablet 40 mg PO BEDTIME olmesartan 40 mg tablet 40 mg PO DAILY multivitamin Tablet 1 tab PO DAILY ferrous sulfate 325 mg (65 mg iron) Tablet 325 mg PO DAILY@1800 cholecalciferol (vitamin D3) 50 mcg (2,000 unit) Tablet 50 mcg PO DAILY@1800 ascorbic acid (vitamin C) 500 mg tablet 500 mg PO DAILY@1800 docusate sodium [Colace] 100 mg capsule 100 mg PO DAILY carvedilol 3.125 mg tablet 3.125 mg PO DAILY@0900,1800 Protocol: Hold for SBP/HR < HOLD for SBP < : 90 HOLD for HR < : 60 acetaminophen 500 mg Tablet 1,000 mg PO Q6H PRN (Reason: Pain) hydralazine 50 mg tablet 50 mg PO TID Trelegy Ellipta 100-62.5-25 mcg blister with device 1 inh inhalation DAILY 30 Days Qty: 60 11RF <Shirley Jung NP - Last Filed: 10/31/22 13:51> Referrals: Uri Houston MD [Primary Care Provider] - (HTN and CHF) <Shirley Jung NP - Last Filed: 10/31/22 13:51>
--- NOTE | 2022-10-31 13:46 | ECG_ITS ---
Test Reason : htn Blood Pressure : / mmHG Vent. Rate : 066 BPM Atrial Rate : 000 BPM P-R Int : 000 ms QRS Dur : 088 ms QT Int : 418 ms P-R-T Axes : 000 034 028 degrees QTc Int : 438 ms Normal sinus rhythm ST & T wave abnormality, consider anterior ischemia Abnormal ECG When compared with ECG of 08-MAR-2022 09:04, T wave inversion now evident in Anterior leads Referred By: Shirley Jung Electronically Signed By:CLARENCE MCMULLEN MD
[2022-10-31] MEDS: hydrALAZINE HCl 25 MG TABLET PO (13:49)
[2022-10-31] MEDS: hydrALAZINE HCl 50 MG TABLET PO (13:54)
[2022-10-31 15:14] LABS: Basophils Percent Auto 0.2 % (0-2); Eosinophils Absolute Auto 0.1 X10*3/uL (0.0-0.4); Eosinophils Percent Auto 1.3 % (0-4); Hematocrit 29.9 % (37.0-47.0); Hemoglobin 9.3 g/dl (12.0-16.0); Imm Gran Abs Auto 0.05 X10*3/uL (0.00-0.03); Imm Gran Pct Auto 0.8 % (0.0-0.4); Lymphocytes Absolute Auto 0.3 X10*3/uL (1.2-4.9); Lymphocytes Percent Auto 4.8 % (20-40); MANUAL DIFF FLAG SCAN; Mean Corpuscular HGB Conc 31.1 g/dl (31.0-35.0); Mean Corpuscular Hemoglobin 26.3 pg (27.0-33.0); Mean Corpuscular Volume 84.7 fL (80.0-98.0); Mean Platelet Volume 8.4 fL (9.4-12.3); Monocytes Absolute Auto 0.2 X10*3/uL (0.1-1.2); Monocytes Percent Auto 2.8 % (2-11); Neutrophils Absolute Auto 5.5 x10*3/uL (2.0-8.3); Neutrophils Percent Auto 90.1 % (45-73); Platelet Count 247 X10*3/uL (160-400); Red Blood Count 3.53 X10*6/uL (4.20-5.50); Red Cell Distribution Width 16.3 % (11.0-16.0); SCAN SMEAR FLAG 1; White Blood Count 6.1 X10*3/uL (4.8-10.8)
--- OUTSIDE RECORDS SUMMARY | 2022-10-31 15:14 | XMS_ITS ---
Author Name Paul Chowdhury Address [address] [place] [address] Organization [facility] Address [address] [place] [address] Care Team Providers Care Tableau Report Developer Name Role Phone Paul Chowdhury Unavailable [phone] PROBLEMS Type Condition ICD9-CM Code UWN93-XM Code Onset Dates Condition Status SNOMED Code Problem Gastroesophageal reflux disease without esophagitis K21.9 Active 08489922 5 Problem Hypertension, unspecified type I10 Active 07370556 Problem Hiatal hernia K44.9 Active 55045276 ALLERGIES Substance Reaction Event Type Date Status Lisinopril Unknown Drug Allergy Sep, Active Dilantin Unknown Drug Allergy Sep, Active ENCOUNTERS Encounter Location Date Diagnosis [facility] [address] [place] [phone] November, [facility] [address] [place] [phone] Sep, Gastroesophageal reflux disease without esophagitis K21.9 and Hiatal hernia K44.9 [facility] Outpatient [address], [place] [id number] Apr, [facility] [address] [place] [phone] Feb, [facility] [address] [place] [phone] Feb, [facility] [address] [place] [phone] Feb, GERD (gastroesophageal reflux disease) 530.81 ; 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 ; Anemia 285.9 and Colon cancer screening V76.51 [facility] Outpatient [address] [place] [id number] November, [facility] [address] [place] [address] Oct, [facility] [address] [place] [address] Oct, Unspecified anemia 285.9 ; 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 and Esophageal reflux 530.81 [facility] Outpatient [address], [place] [id number] Jan, [facility] ER [address] [place] [id number] Sep, [facility] ER [address] [place] [id number] Oct, [facility] ER [address] [place] [id number] Jul, [facility] Outpatient [address] [place] [id number] Oct, [facility] ER [address] [place] [id number] May, IMMUNIZATIONS Vaccine Route Administration Date Status Influenza Unknown May 04, 2019 Administered Flu vaccine no Preserv 3 and > Unknown May 14 14 Administered SOCIAL HISTORY Never Assessed REASON FOR REFERRAL FUNCTIONAL STATUS PLAN OF CARE Activity Details VITAL SIGNS Weight 171 lbs 2019-09-25 Weight 182 lbs 2015-03-02 Weight 183 lbs 2011-10-30 Height 63 in 2019-09-25 Height 63 in 2015-03-02 Height 63.5 in 2011-10-30 BMI 30.29 kg/m2 2019-09-25 BMI 32.24 kg/m2 2015-03-02 BMI 31.91 kg/m2 2011-10-30 Heart Rate 80 /min 2019-09-25 Heart Rate 60 /min 2011-10-30 Blood pressure systolic 150 mm Hg Blood pressure diastolic 82 mm Hg 2019-09 MEDICATIONS Medication Instructions Dosage Frequency Start Date End Date Duration Status Omeprazole 20 MG Orally 1 PO BID 1 capsule Acti ve Simvastatin 40 MG Orally QD 1 TABLET 24h Active Olmesartan Medoxomil 40 MG Orally Once a day 1 tablet 24h 30 day(s) Active Docusate Sodium 100 MG Orally Once a day 1 capsule as needed 24h Active Vitamin C 500mg Orally Once a day 1 tablet 24h Active Vitamin D 2000 UNIT Orally as directed 1 tablet Active Multi Vitamin/Mineral s Orally 1 PO QD 1 TABLET Activ e Colyte with Flavor Packs 240 GM Orally 1 time only 1 ml one time Oct, 1 dose Not-Takin g Iron 325mg Orally Once a day 1 tablet 24h Active NIFEdipine 60mg Orally 1 PO QD 1 capsule Active PROCEDURES Procedure Date Ordered Result Body Site DOC MEDS VERIFIED W/PT OR RE Mar 02, 2015 BP SCR PRFRM RCMDD DEFIND SCR INTVL September 25, 2019 BMI >=30 CALCUATE W/FOLLOWUP Mar 02, 2015 FLU IMMUNIZE ORDER/ADMIN Mar 02, 2015 TOBACCO NON-USER September 25, 2019 PRES/ABSN URINE INCON ASSESS Mar 02, 2015 DOC MEDS VERIFIED W/PT OR RE September 25, 2019 BP SCR PRFRM RCMDD DEFIND SCR INTVL Mar 02, 2015 TOBACCO NON-USER Mar 02, 2015 PRES/ABSN URINE INCON ASSESS September 25, 2019 RESULTS Name Result Date Reference Range GI BIOPSY 2015-05-20 G.I. BIOPSY PROFILE, FASTING 2015-02-23 NA 143 135-145 K 4.3 3.3-5.1 CL 107 96-108 CO2 25 22-29 ANION GAP 15 12-20 FASTING BLOOD SUGAR 104 60-99 BUN 24 9-16 CREATININE 0.83 0.5-1.4 ESTIMATED GFR >60 PROTEIN, TOTAL 7.2 6.5-8.0 ALBUMIN 4.3 3.5-5.0 BILIRUBIN, TOTAL 0.5 0.0-1.0 CALCIUM 10.0 8.4-10.2 ALK. PHOS. 85 39-117 GOT 17 5-31 GPT 17 0-31 LIPOPROTEIN FRACTIONATION (LIPID PANEL) 2 CHOLESTEROL 217 TRIGLYCERIDE 133 HDL 78 LDL 113 TSH (THYROID STIMULATING HORMONE) 2015-02 TSH 3.26 0.32-4.0 IRON + IBC (FE) 2015-02-23 IRON 67 30-160 IBC 326 228-428 % SATURATION 21 15-50 FERRITIN 2015-02-23 FERRITIN 46 10-250 CBC w/o DIFF 2015-02-23 WBC 6.3 4.8-10.8 RBC 3.88 4.20-5.50 HEMOGLOBIN 11.8 12.0-16.0 HEMATOCRIT 34.7 37-47 MCV 89.5 80-98 MCH 30.4 27.0-33.0 MCHC 34.0 31.0-35.0 PLATELET COUNT 291 160-400 RDW 12.4 11.0-16.0 URINALYSIS (UA) 2015-02-23 COLOR STRAW APPEARANCE,(UA) CLEAR SPECIFIC GRAVITY <= 1.005 1.005-1.025 LEUKOCYTES NEG NEG NITRITE NEG NEG PROTEIN,QUALITATIVE NEG NEG - TR ELAN PH 6.0 5.0-8.0 URINE BLOOD NEG NEG KETONES NEG NEG GLUCOSE NEG NEG PROFILE, FASTING 2015-02-23 NA 143 135-145 K 4.3 3.3-5.1 CL 107 96-108 CO2 25 22-29 ANION GAP 15 12-20 FASTING BLOOD SUGAR 104 60-99 BUN 24 9-16 CREATININE 0.83 0.5-1.4 ESTIMATED GFR >60 PROTEIN, TOTAL 7.2 6.5-8.0 ALBUMIN 4.3 3.5-5.0 BILIRUBIN, TOTAL 0.5 0.0-1.0 CALCIUM 10.0 8.4-10.2 ALK. PHOS. 85 39-117 GOT 17 5-31 GPT 17 0-31 REASON FOR VISIT SORENESS THROAT , patient presents today for persistent heartburn, Personal hx malignant neoplasm, screening, sign in to portal, send over colyte prep, Colyte Prep RX, colorectal cancer screening Insurance Providers Health Insurance Type Health Plan Insurance Address Health Plan Insurance Phone Health Plan Insurance Name Health Plan Coverage Dates Member ID Patient Relationship to Subscriber Patient Address Patient Phone Patient Name Patient Date of Subscriber ID Subscriber Name Subscriber Date of Group No [employer] [address] [employer]ON[employer] [facility] [id number] [phone] [employer] self ZULMA PEREZ [id number] MEDICARE OF [place] [address] [facility] [address] [id number] [place] self ZULMA PEREZ [id number]
[2022-10-31 15:36] LABS: Alanine Aminotransferase 9 U/L (0-31); Albumin Level 2.8 g/dL (3.5-5.0); Alkaline Phosphatase 69 U/L (39-117); Anion Gap 12 (12-20); Aspartate Amino Transferase 18 U/L (5-31); Bilirubin Direct 0.2 mg/dL (0.0-0.5); Bilirubin Total 0.5 mg/dL (0.0-1.0); Blood Urea Nitrogen 20 mg/dL (9-16); Calcium 8.7 mg/dL (8.4-10.2); Carbon Dioxide 25 mmol/L (22-29); Chloride 97 mmol/L (96-108); Creatinine Clr Calc Pharmacy 40.5; Estimated Glomerular Filt Rate > 60; Glucose Random 97 mg/dL (60-115); Potassium 4.1 mmol/L (3.3-5.1); Sodium 130 mmol/L (135-145); Total Protein 7.3 g/dL (6.5-8.0)
[2022-10-31 15:41] LABS: B Type Natriuretic Peptide 347 pg/mL (<100)
[2022-10-31 15:43] LABS: Troponin-I High Sensitivity 4.6 ng/L (<3.5-17.0)
[2022-10-31 15:44] LABS: SLIDE REVIEW VERIFIED
[2022-10-31 15:55] VITALS: BP 159/58; PULSE 64; RESP 20; TEMP 37.4; O2SAT 99
[2022-10-31 16:55] VITALS: BP 153/57; PULSE 66; RESP 22; O2SAT 99
== END 2022-10-31 17:09 | disposition home or self-care (01) ==
PROVIDERS: Nurse Practitioner Family; Emergency Provider Emergency Medicine; PCP Internal Medicine
DX: I11.0 Hypertensive heart disease with heart failure (principal); I50.9 Heart failure, unspecified; J44.9 Chronic obstructive pulmonary disease, unspecified; K21.9 Gastro-esophageal reflux disease without esophagitis; G47.00 Insomnia, unspecified; E87.1 Hypo-osmolality and hyponatremia; D64.89 Other specified anemias
CPT/HCPCS: 36415; 71045; 80048; 80076; 83880; 84484; 85025; 93005; 99212; 99283; 99284

== ENCOUNTER 2022-12-13 12:00 | Outpatient (REF) | payer MEDICARE, OTHER, SELFPAY ==
[2022-12-13 14:07] LABS: B Type Natriuretic Peptide 116 pg/mL (<100)
[2022-12-13 14:14] LABS: Anion Gap 13 (12-20); Blood Urea Nitrogen 42 mg/dL (9-16); Calcium 9.5 mg/dL (8.4-10.2); Carbon Dioxide 22 mmol/L (22-29); Chloride 103 mmol/L (96-108); Estimated Glomerular Filt Rate 48; Glucose Random 100 mg/dL (60-115); Magnesium 2.1 mg/dL (1.6-2.6); Sodium 133 mmol/L (135-145)
== END 2022-12-13 12:01 | disposition home or self-care (01) ==
LOC: HO.LAB 12:00
PROVIDERS: PCP Internal Medicine; Visit Provider Internal Medicine
DX: I11.0 Hypertensive heart disease with heart failure (principal); I50.32 Chronic diastolic (congestive) heart failure
CPT/HCPCS: 36415; 80048; 83735; 83880

== ENCOUNTER → 2023-01-21 14:06 | Outpatient (BNVA) | payer MEDICARE, OTHER, SELFPAY | PROVIDERS: PCP Internal Medicine; Visit Provider Hospitalist | DX: J44.9 Chronic obstructive pulmonary disease, unspecified (principal); R91.8 Other nonspecific abnormal finding of lung field; J42 Unspecified chronic bronchitis; R06.02 Shortness of breath; G47.00 Insomnia, unspecified; J70.0 Acute pulmonary manifestations due to radiation | CPT/HCPCS: 99212 ==

== ENCOUNTER 2023-01-29 13:44 | Outpatient (REF) | payer MEDICARE, OTHER, SELFPAY ==
[2023-01-29 14:46] LABS: Basophils Percent Auto 0.3 % (0-2); Eosinophils Percent Auto 0.5 % (0-4); Hematocrit 31.9 % (37.0-47.0); Imm Gran Abs Auto 0.12 X10*3/uL (0.00-0.03); Imm Gran Pct Auto 1.5 % (0.0-0.4); Lymphocytes Absolute Auto 0.2 X10*3/uL (1.2-4.9); Lymphocytes Percent Auto 2.7 % (20-40); MANUAL DIFF FLAG SCAN; Mean Corpuscular HGB Conc 31.3 g/dl (31.0-35.0); Mean Corpuscular Hemoglobin 28.7 pg (27.0-33.0); Mean Corpuscular Volume 91.4 fL (80.0-98.0); Mean Platelet Volume 8.6 fL (9.4-12.3); Monocytes Absolute Auto 0.1 X10*3/uL (0.1-1.2); Monocytes Percent Auto 1.8 % (2-11); Neutrophils Absolute Auto 7.4 x10*3/uL (2.0-8.3); Neutrophils Percent Auto 93.2 % (45-73); Platelet Count 347 X10*3/uL (160-400); Red Blood Count 3.49 X10*6/uL (4.20-5.50); SCAN SMEAR FLAG 1; White Blood Count 7.9 X10*3/uL (4.8-10.8)
[2023-01-29 15:11] LABS: SLIDE REVIEW VERIFIED
[2023-01-29 17:52] LABS: Alanine Aminotransferase 9 U/L (0-31); Alkaline Phosphatase 73 U/L (39-117); Anion Gap 13 (12-20); Aspartate Amino Transferase 14 U/L (5-31); Bilirubin Total 0.2 mg/dL (0.0-1.0); Blood Urea Nitrogen 43 mg/dL (9-16); Calcium 9.7 mg/dL (8.4-10.2); Carbon Dioxide 21 mmol/L (22-29); Chloride 100 mmol/L (96-108); Estimated Glomerular Filt Rate 43; Glucose Random 104 mg/dL (60-115); Magnesium 2.2 mg/dL (1.6-2.6); Potassium 4.8 mmol/L (3.3-5.1); Sodium 129 mmol/L (135-145); Total Protein 7.8 g/dL (6.5-8.0)
== END 2023-01-29 13:45 | disposition home or self-care (01) ==
LOC: HO.LAB 13:44
PROVIDERS: PCP Internal Medicine; Visit Provider Internal Medicine
DX: I11.0 Hypertensive heart disease with heart failure (principal); I50.32 Chronic diastolic (congestive) heart failure; D64.9 Anemia, unspecified; J44.9 Chronic obstructive pulmonary disease, unspecified
CPT/HCPCS: 36415; 80053; 83735; 85025

== ENCOUNTER 2023-02-07 07:21 | Outpatient (REF) | payer MEDICARE, OTHER, SELFPAY ==
[2023-02-07 10:02] LABS: Anion Gap 12 (12-20); Blood Urea Nitrogen 46 mg/dL (9-16); Calcium 9.5 mg/dL (8.4-10.2); Carbon Dioxide 23 mmol/L (22-29); Chloride 97 mmol/L (96-108); Estimated Glomerular Filt Rate 41; Glucose Random 101 mg/dL (60-115); Potassium 4.8 mmol/L (3.3-5.1); Sodium 127 mmol/L (135-145)
== END 2023-02-07 07:22 | disposition home or self-care (01) ==
LOC: HO.LAB 07:21
PROVIDERS: PCP Internal Medicine; Visit Provider Nurse Practitioner Family
DX: E87.1 Hypo-osmolality and hyponatremia (principal)
CPT/HCPCS: 36415; 80048

== ENCOUNTER 2023-02-11 11:32 | Outpatient (REF) | payer MEDICARE, OTHER, SELFPAY ==
[2023-02-11 13:51] LABS: Anion Gap 9 (12-20); Blood Urea Nitrogen 42 mg/dL (9-16); Carbon Dioxide 24 mmol/L (22-29); Chloride 99 mmol/L (96-108); Estimated Glomerular Filt Rate 40; Glucose Random 108 mg/dL (60-115); Potassium 4.8 mmol/L (3.3-5.1); Sodium 127 mmol/L (135-145)
[2023-02-11 14:16] LABS: Osmolality, Serum 281 mosm/kg (281-305)
== END 2023-02-11 11:33 | disposition home or self-care (01) ==
LOC: HO.LAB 11:32
PROVIDERS: PCP Internal Medicine; Visit Provider Nurse Practitioner Family
DX: Z13.89 Encounter for screening for other disorder (principal)
CPT/HCPCS: 36415; 80048; 83930

== ENCOUNTER 2023-02-11 12:11 | Inpatient (IN) | payer MEDICARE, OTHER, SELFPAY ==
[2023-02-11] VITALS (8 sets, daily range): BP systolic 86–120; BP diastolic 39–52; PULSE 57–62; RESP 15–22; TEMP 36.5–38.6; O2SAT 93–98; BMI 21.7
--- NOTE | ~2023-02-11 | XR_ITS ---
EXAMINATION: XR CHEST CLINICAL INFORMATION: Weakness COMPARISON: Chest radiograph from 10/31/2022 TECHNIQUE: 2 views of the chest were obtained. FINDINGS: Increased radiopacities in the right midlung field may reflect atelectasis versus evolving infectious/inflammatory etiology. Stable bronchovascular prominence bilaterally. No pneumothorax. Trachea is midline. Cardiomediastinal silhouette is stable. No large pleural effusion. Degenerative changes of the thoracolumbar spine. Soft tissues are unremarkable. XR/XR chest 2V IMPRESSION: 1. Increased radiopacities in the right midlung field may reflect atelectasis versus evolving infectious/inflammatory etiology. 2. Stable bronchovascular prominence bilaterally.
--- NOTE | 2023-02-11 12:27 | ECG_ITS ---
Test Reason : PAIN Blood Pressure : / mmHG Vent. Rate : 063 BPM Atrial Rate : 063 BPM P-R Int : 126 ms QRS Dur : 090 ms QT Int : 400 ms P-R-T Axes : 063 023 029 degrees QTc Int : 409 ms Normal sinus rhythm Normal ECG When compared with ECG of 31-OCT-2022 14:12, No significant change was found Referred By: Luisito Espana Electronically Signed By:CLARENCE MCMULLEN MD
--- NOTE | 2023-02-11 12:27 | ED.GENADULT ---
HPI - General Adult General Chief complaint: Weakness Stated complaint: Fatigue/Not feeling good Time Seen by Provider: 02/11/23 12:59 History of Present Illness HPI narrative: Patient is an 87-year-old female presents today with having generalized malaise weakness. Patient had a low-grade fever some coughing some upper respiratory symptoms. History of COPD. Positive history of generalized malaise. Over the last few days been noticing some fever. No pain on urination no frequency in urination. More confusion than usual. No urinary symptoms. Patient had a history of low sodium has been on a restrictive fluid intake. Baseline on 2 L of oxygen at home or COPD. Related Data Home Medications Medication Instructions Recorded Confirmed cholecalciferol (vitamin D3) 50 50 mcg PO DAILY@1800 06/14/20 12/27/22 mcg (2,000 unit) tablet ferrous sulfate 325 mg (65 mg 325 mg PO DAILY@1800 06/14/20 12/27/22 iron) tablet multivitamin 1 tab PO DAILY 06/14/20 12/27/22 olmesartan 40 mg tablet 40 mg PO DAILY 06/14/20 12/27/22 omeprazole 40 mg capsule,delayed 40 mg PO DAILY@0630 06/14/20 12/27/22 release simvastatin 40 mg tablet 40 mg PO BEDTIME 06/14/20 12/27/22 ascorbic acid (vitamin C) 500 mg 500 mg PO DAILY@1800 11/29/21 12/27/22 tablet docusate sodium 100 mg capsule 100 mg PO DAILY 11/29/21 12/27/22 (Colace) acetaminophen 500 mg tablet 1,000 mg PO Q6H PRN Pain 03/08/22 12/27/22 carvedilol 3.125 mg tablet 3.125 mg PO DAILY@0900,1800 03/08/22 12/27/22 hydralazine 50 mg tablet 50 mg PO TID 08/22/22 12/27/22 furosemide 20 mg tablet 20 mg PO MOTUWEFRSA 02/11/23 02/11/23 hydralazine 25 mg tablet 25 mg PO TID 02/11/23 prednisone 5 mg tablet See Taper PO DAILY 02/11/23 02/11/23 trazodone 50 mg tablet 50 mg PO BEDTIME 02/11/23 02/11/23 Previous Rx's Medication Instructions Recorded fluticasone fur. 100 mcg-umeclid 1 inh inhalation DAILY 30 days #60 05/01/22 62.5 mcg-vilant 25 mcg ea inhalat.powder (Trelegy Ellipta) nifedipine 60 mg tablet,extended 60 mg PO DAILY #90 tabs 07/17/22 release Allergies Allergy/AdvReac Type Severity Reaction Status Date / Time cimetidine [From TAGAMET] Allergy Mild HEADACHES Verified 02/11/23 12:27 lisinopril [LISINOPRIL] Allergy Mild COUGH Verified 02/11/23 12:27 phenytoin [Dilantin] Allergy Unknown rash Verified 02/11/23 12:27 hydrochlorothiazide AdvReac Shortness Verified 02/11/23 12:27 of Breath Review of Systems Review of Systems: Positive generalized malaise Yes all other systems are reviewed and are negative [facility] Past Medical History Attestation statement: The following information was validated with the patient. Medical History CHF (congestive heart failure) COPD (chronic obstructive pulmonary disease) GERD (gastroesophageal reflux disease) High cholesterol History of colon cancer (~2002) HTN (hypertension) Insomnia Multinodular thyroid Osteopenia (~2001) Rheumatic fever Subarachnoid bleed Surgical History History of appendectomy History of bone marrow biopsy History of colonoscopy History of hemicolectomy History of lung biopsy History of tonsillectomy S/P thyroid biopsy Family History Family History Father Colon cancer Paternal Aunt Colon cancer Sister Breast cancer Social History Social History Household Members: Spouse Housing: House Are you a primary janitor caretaker to a significant other at home: No Do you presently have visiting nurse or other home services: No Alcohol intake: never Patient Tobacco Use Status: Former Tobacco user Quit Date: 1979 Years Smoked: 20 +/- Smoked in Last 30 Days: No Use of substances other than those prescribed or required for medical reasons: No Advance Directives: Yes Advance Directives on File: Yes Advance Directives Date on File: 08/20/22 service: No Current occupational status: retired Physical Exam ED Vital Signs: Vital Signs - 24 hr 07/24/23 12:27 02/11/23 13:01 02/11/23 13:08 Temperature 98.7 F 101.5 F H Pulse Rate 62 58 Respiratory Rate 22 H 18 Blood Pressure 86/40 L 101/39 L Pulse Oximetry 93 95 Oxygen Delivery Method Nasal Cannula Room Air Oxygen Flow Rate 02/11/23 15:29 02/11/23 17:24 Temperature 99.3 F Pulse Rate 59 59 Respiratory Rate 16 18 Blood Pressure 104/42 L 114/48 L Pulse Oximetry 95 98 Oxygen Delivery Method Nasal Cannula Nasal Cannula Oxygen Flow Rate 2 4 BMI result Body Mass Index 21.7 Appearance: Alert. Oriented X3. No acute distress. Eyes: Pupils equal, round and reactive to light. ENT: Pharynx normal. Neck: Normal inspection. Neck supple. No lymph nodes noted. No crepitus CVS: Normal heart rate and rhythm. Pulses normal. Normal S1 and S2 Respiratory: Diminished breath sounds bilaterally Abdomen: Soft and nontender. No rigidity. No distention. good BS x4 Skin: Skin warm and dry. Normal skin color. Normal skin turgor. Extremities: No lower extremity edema. Neurovascular intact to all extremities. No Lacerations. No Rash Neuro: Oriented X 3. No motor deficit. No sensory deficit. Moving all extermities. No slurred speech Course Course Course Narrative: 87 year old female with past medical history significant for radiation pneumonitis, COPD on 2 L via nasal cannula, CHF, hypertension, GERD presents for evaluation of ?confusion and not feeling well. ? Plan for labs, chest x-ray, EKG, UA, VBG Medications Administered Generic Name Dose Route Start Last Admin Trade Name Freq PRN Reason Stop Dose Admin Sodium Chloride 1,000 mls @ 999 mls/hr 02/11/23 17:15 02/11/23 17:22 Ns IV 02/11/23 18:15 999 mls/hr .Q1H1M MICAELA Administration Sodium Chloride 1,000 mls @ 999 mls/hr 02/11/23 17:15 02/11/23 17:23 Ns IV 02/11/23 18:15 999 mls/hr .Q1H1M MICAELA Administration Discontinued Medications Generic Name Dose Route Start Last Admin Trade Name Freq PRN Reason Stop Dose Admin Acetaminophen 650 mg 02/11/23 14:14 02/11/23 14:22 Acetaminophen 325 Mg Tablet PO 02/11/23 14:15 650 mg ONCE ONE Administration Medical Decision Making Medical Decision Making [facility] Narrative: Positive coughing upper respiratory symptoms generalized malaise. Baseline on 2 L of oxygen at home history of COPD. Patient's chest x-ray showed a questionable infiltrate. Cultures obtained antibiotics started. Patient's lactate is 1.0-no evidence for severe sepsis. Patient given IV fluids here in the emergency department. I started an external jugular IV line myself. No complications. The IV fluid loaded nicely. Urine is pending. Patient's electrolytes showed a sodium 125. Will need further investigation. Patient's COVID flu RSV were all negative. Differential Diagnosis Differential Diagnoses: The differential diagnosis associated with the presentation includes Hyponatremia, pneumonia, UTI Admission/Observation Consideration of admission/observation: Escalation of care including admission/observation considered Consult Healthcare Provider Management of the patient was discussed with: Hospitalist Agree to admission Lab Data [facility] Lab Attestation statement: I reviewed the patient's lab results. 02/11/23 13:28 02/11/23 13:28 Labs: Lab Results 02/11/23 02/11/23 02/11/23 Range/Units 13:28 13:28 13:28 WBC 4.5 L (4.8-10.8) X10*3/uL RBC 3.18 L (4.20-5.50) X10*6/uL Hgb 9.1 L (12.0-16.0) g/dl Hct 28.6 L (37.0-47.0) % MCV 89.9 (80.0-98.0) fL MCH 28.6 (27.0-33.0) pg MCHC 31.8 (31.0-35.0) g/dl RDW 15.8 (11.0-16.0) % Plt Count 281 (160-400) X10*3/uL MPV 8.6 L (9.4-12.3) fL Immature Gran % (Auto) 1.1 H (0.0-0.4) % Neut % (Auto) 85.9 H (45-73) % Lymph % (Auto) 5.1 L (20-40) % [place] % (Auto) 6.0 (2-11) % Eos % (Auto) 1.5 (0-4) % Baso % (Auto) 0.4 (0-2) % Lymph # (Auto) 0.2 L (1.2-4.9) X10*3/uL [place] # (Auto) 0.3 (0.1-1.2) X10*3/uL Eos # (Auto) 0.1 (0.0-0.4) X10*3/uL Baso # (Auto) 0.0 (0.0-0.2) X10*3/uL Abs Immat Gran (auto) 0.05 H (0.00-0.03) X10*3/uL Absolute Neuts (auto) 3.9 (2.0-8.3) x10*3/uL Absolute Nucleated RBC 0.000 (0.0-0.012) X10*3/uL Nucleated RBC % (auto) 0.0 (0.0-0.2) /100WBC PT (10.0-13.1) SEC INR (0.9-1.1) APTT (26.0-36.4) SEC VBG pH (7.32-7.43) VBG pCO2 mmHg VBG pO2 mmHg VBG HCO3 (22-26) mmol/L VBG O2 Saturation % VBG Base Excess mmol/L Sodium 125 L (135-145) mmol/L Potassium 4.9 (3.3-5.1) mmol/L Chloride 99 (96-108) mmol/L Carbon Dioxide 21 L (22-29) mmol/L Anion Gap 10 L (12-20) BUN 41 H (9-16) mg/dL Creatinine 1.30 (0.5-1.4) mg/dL Estim Creat Clear Calc 23.8 Estimated GFR 39 Random Glucose 107 (60-115) mg/dL Lactic Acid (0.5-2.0) mmol/L Calcium 9.1 (8.4-10.2) mg/dL Magnesium 2.3 (1.6-2.6) mg/dL Total Bilirubin 0.4 (0.0-1.0) mg/dL AST 18 (5-31) U/L ALT 16 (0-31) U/L Alkaline Phosphatase 55 (39-117) U/L Troponin I High Sens 8.4 D (<3.5-17.0) ng/L B-Natriuretic Peptide (<100) pg/mL Total Protein 7.4 (6.5-8.0) g/dL Albumin 2.7 L (3.5-5.0) g/dL Lipase 19 (8-78) U/L Influenza Type A (PCR) (Negative) Influenza Type B (PCR) (Negative) RSV RNA Qual (PCR) (Negative) SARS-CoV-2 RNA (RT-PCR) (Negative) 02/11/23 02/11/23 02/11/23 Range/Units 13:28 13:28 13:29 WBC (4.8-10.8) X10*3/uL RBC (4.20-5.50) X10*6/uL Hgb (12.0-16.0) g/dl Hct (37.0-47.0) % MCV (80.0-98.0) fL MCH (27.0-33.0) pg MCHC (31.0-35.0) g/dl RDW (11.0-16.0) % Plt Count (160-400) X10*3/uL MPV (9.4-12.3) fL Immature Gran % (Auto) (0.0-0.4) % Neut % (Auto) (45-73) % Lymph % (Auto) (20-40) % [place] % (Auto) (2-11) % Eos % (Auto) (0-4) % Baso % (Auto) (0-2) % Lymph # (Auto) (1.2-4.9) X10*3/uL [place] # (Auto) (0.1-1.2) X10*3/uL Eos # (Auto) (0.0-0.4) X10*3/uL Baso # (Auto) (0.0-0.2) X10*3/uL Abs Immat Gran (auto) (0.00-0.03) X10*3/uL Absolute Neuts (auto) (2.0-8.3) x10*3/uL Absolute Nucleated RBC (0.0-0.012) X10*3/uL Nucleated RBC % (auto) (0.0-0.2) /100WBC PT 12.5 (10.0-13.1) SEC INR 1.1 (0.9-1.1) APTT 30.8 (26.0-36.4) SEC VBG pH (7.32-7.43) VBG pCO2 mmHg VBG pO2 mmHg VBG HCO3 (22-26) mmol/L VBG O2 Saturation % VBG Base Excess mmol/L Sodium (135-145) mmol/L Potassium (3.3-5.1) mmol/L Chloride (96-108) mmol/L Carbon Dioxide (22-29) mmol/L Anion Gap (12-20) BUN (9-16) mg/dL Creatinine (0.5-1.4) mg/dL Estim Creat Clear Calc Estimated GFR Random Glucose (60-115) mg/dL Lactic Acid 1.0 (0.5-2.0) mmol/L Calcium (8.4-10.2) mg/dL Magnesium (1.6-2.6) mg/dL Total Bilirubin (0.0-1.0) mg/dL AST (5-31) U/L ALT (0-31) U/L Alkaline Phosphatase (39-117) U/L Troponin I High Sens (<3.5-17.0) ng/L B-Natriuretic Peptide 352 H (<100) pg/mL Total Protein (6.5-8.0) g/dL Albumin (3.5-5.0) g/dL Lipase (8-78) U/L Influenza Type A (PCR) (Negative) Influenza Type B (PCR) (Negative) RSV RNA Qual (PCR) (Negative) SARS-CoV-2 RNA (RT-PCR) (Negative) 02/11/23 02/11/23 Range/Units 14:10 15:20 WBC (4.8-10.8) X10*3/uL RBC (4.20-5.50) X10*6/uL Hgb (12.0-16.0) g/dl Hct (37.0-47.0) % MCV (80.0-98.0) fL MCH (27.0-33.0) pg MCHC (31.0-35.0) g/dl RDW (11.0-16.0) % Plt Count (160-400) X10*3/uL MPV (9.4-12.3) fL Immature Gran % (Auto) (0.0-0.4) % Neut % (Auto) (45-73) % Lymph % (Auto) (20-40) % [place] % (Auto) (2-11) % Eos % (Auto) (0-4) % Baso % (Auto) (0-2) % Lymph # (Auto) (1.2-4.9) X10*3/uL [place] # (Auto) (0.1-1.2) X10*3/uL Eos # (Auto) (0.0-0.4) X10*3/uL Baso # (Auto) (0.0-0.2) X10*3/uL Abs Immat Gran (auto) (0.00-0.03) X10*3/uL Absolute Neuts (auto) (2.0-8.3) x10*3/uL Absolute Nucleated RBC (0.0-0.012) X10*3/uL Nucleated RBC % (auto) (0.0-0.2) /100WBC PT (10.0-13.1) SEC INR (0.9-1.1) APTT (26.0-36.4) SEC VBG pH 7.54 H (7.32-7.43) VBG pCO2 29 mmHg VBG pO2 76 mmHg VBG HCO3 25 (22-26) mmol/L VBG O2 Saturation 98.0 % VBG Base Excess 3.7 mmol/L Sodium (135-145) mmol/L Potassium (3.3-5.1) mmol/L Chloride (96-108) mmol/L Carbon Dioxide (22-29) mmol/L Anion Gap (12-20) BUN (9-16) mg/dL Creatinine (0.5-1.4) mg/dL Estim Creat Clear Calc Estimated GFR Random Glucose (60-115) mg/dL Lactic Acid (0.5-2.0) mmol/L Calcium (8.4-10.2) mg/dL Magnesium (1.6-2.6) mg/dL Total Bilirubin (0.0-1.0) mg/dL AST (5-31) U/L ALT (0-31) U/L Alkaline Phosphatase (39-117) U/L Troponin I High Sens (<3.5-17.0) ng/L B-Natriuretic Peptide (<100) pg/mL Total Protein (6.5-8.0) g/dL Albumin (3.5-5.0) g/dL Lipase (8-78) U/L Influenza Type A (PCR) NEGATIVE (Negative) Influenza Type B (PCR) NEGATIVE (Negative) RSV RNA Qual (PCR) NEGATIVE (Negative) SARS-CoV-2 RNA (RT-PCR) NEGATIVE (Negative) ABG Data Attestation ABG: I personally reviewed and interpreted this ABG as follows: Interpretation: I reviewed patient's VBG there was no CO2 retention Independent Interpretation I performed an independent interpretation of an: Plain X-Ray Interpretation: Question infiltrate in the right middle lobe Radiology Impression Discussion of test interpretation with radiology: I have reviewed the radiologist's reading. Discharge Plan Discharge Clinical Impression: Pneumonia, Acute hyponatremia Prescriptions: No Action furosemide 20 mg tablet 20 mg PO .COMPLEX Qty: 60 3RF Rx Instructions: 20 mg orally 5 days per week only. nifedipine 60 mg tablet extended release 60 mg PO DAILY Qty: 90 3RF trazodone 50 mg tablet 100 mg PO BEDTIME 30 Days Qty: 60 6RF Rx Instructions: Take 1 hour before sleep omeprazole 40 mg capsule,delayed release(DR/EC) 40 mg PO DAILY@0630 simvastatin 40 mg tablet 40 mg PO BEDTIME olmesartan 40 mg tablet 40 mg PO DAILY multivitamin Tablet 1 tab PO DAILY ferrous sulfate 325 mg (65 mg iron) Tablet 325 mg PO DAILY@1800 cholecalciferol (vitamin D3) 50 mcg (2,000 unit) Tablet 50 mcg PO DAILY@1800 ascorbic acid (vitamin C) 500 mg tablet 500 mg PO DAILY@1800 docusate sodium [Colace] 100 mg capsule 100 mg PO DAILY carvedilol 3.125 mg tablet 3.125 mg PO DAILY@0900,1800 Protocol: Hold for SBP/HR < HOLD for SBP < : 90 HOLD for HR < : 60 acetaminophen 500 mg Tablet 1,000 mg PO Q6H PRN (Reason: Pain) hydralazine 50 mg tablet 50 mg PO TID Trelegy Ellipta 100-62.5-25 mcg blister with device 1 inh inhalation DAILY 30 Days Qty: 60 11RF prednisone 5 mg tablet See Rx Instructions PO DAILY 30 Days Qty: 50 0RF Rx Instructions: orally daily; 4 tabs daily x 5 days, 3 tabs daily x 5 days, 2 tabs daily x 5 days, 1 tab daily x 5 days
--- OUTSIDE RECORDS SUMMARY | 2023-02-11 13:01 | XMS_ITS ---
Author Name Paul Chowdhury Address [address] [place] [address] Organization [facility] Address [address] [place] [address] Care Team Providers Care Patient Accounting Representative Name Role Phone Paul Chowdhury Unavailable [phone] PROBLEMS Type Condition ICD9-CM Code RXB87-CC Code Onset Dates Condition Status SNOMED Code Problem Gastroesophageal reflux disease without esophagitis K21.9 Active 85637884 5 Problem Hypertension, unspecified type I10 Active 39612792 Problem Hiatal hernia K44.9 Active 10507708 ALLERGIES Substance Reaction Event Type Date Status Lisinopril Unknown Drug Allergy Sep, Active Dilantin Unknown Drug Allergy Sep, Active ENCOUNTERS Encounter Location Date Diagnosis [facility] [address] [place] [phone] November, [facility] [address] [place] [phone] Sep, Gastroesophageal reflux disease without esophagitis K21.9 and Hiatal hernia K44.9 [facility] [place] [address] [place] [id number] Apr, [facility] [address] [place] [phone] Feb, [facility] [address] [place] [phone] Feb, [facility] [address] [place] [phone] Feb, GERD (gastroesophageal reflux disease) 530.81 ; 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 ; Anemia 285.9 and Colon cancer screening V76.51 [facility] [place] [address] [place] [id number] November, [facility] [address] [place] [address] Oct, [facility] [address] [place] [address] Oct, Unspecified anemia 285.9 ; 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 and Esophageal reflux 530.81 [facility] [place] [address] [place], [place] [id number] Jan, [facility] [place] [address] [place] [id number] Sep, [facility] [place] [address] [place] [id number] Oct, [facility] [place] [address] [place] [id number] Jul, [facility] [place] [address] [place] [id number] Oct, [facility] [place] [address] [place] [id number] May, IMMUNIZATIONS Vaccine Route Administration Date Status [...] [employer]MN[employer] [address] [facility] [address] [phone] GIC [employer] self ZULMA PEREZ [id number] [place]ARE OF [place] [address] [facility] [address] [id number] [place] OF [place] self ZULMA PEREZ [id number]
[2023-02-11 13:37] LABS: MANUAL DIFF FLAG NO
[2023-02-11 13:47] LABS: INTERNATIONAL NORM RATIO 1.1 (0.9-1.1); Prothrombin Time 12.5 SEC (10.0-13.1)
[2023-02-11 13:48] LABS: Basophils Percent Auto 0.4 % (0-2); Eosinophils Absolute Auto 0.1 X10*3/uL (0.0-0.4); Eosinophils Percent Auto 1.5 % (0-4); Hematocrit 28.6 % (37.0-47.0); Hemoglobin 9.1 g/dl (12.0-16.0); Imm Gran Abs Auto 0.05 X10*3/uL (0.00-0.03); Imm Gran Pct Auto 1.1 % (0.0-0.4); Lymphocytes Absolute Auto 0.2 X10*3/uL (1.2-4.9); Lymphocytes Percent Auto 5.1 % (20-40); Mean Corpuscular HGB Conc 31.8 g/dl (31.0-35.0); Mean Corpuscular Hemoglobin 28.6 pg (27.0-33.0); Mean Corpuscular Volume 89.9 fL (80.0-98.0); Mean Platelet Volume 8.6 fL (9.4-12.3); Monocytes Absolute Auto 0.3 X10*3/uL (0.1-1.2); Neutrophils Absolute Auto 3.9 x10*3/uL (2.0-8.3); Neutrophils Percent Auto 85.9 % (45-73); Platelet Count 281 X10*3/uL (160-400); Red Blood Count 3.18 X10*6/uL (4.20-5.50); Red Cell Distribution Width 15.8 % (11.0-16.0); White Blood Count 4.5 X10*3/uL (4.8-10.8)
[2023-02-11 13:50] LABS: Partial Thromboplastin Time 30.8 SEC (26.0-36.4)
--- NOTE | 2023-02-11 13:57 | PC.NURSE ---
pt is a hard stick, having a hard time gaining an iv access, Parker rn is attempting to get an access via ultra sound
[2023-02-11 13:58] LABS: Alanine Aminotransferase 16 U/L (0-31); Albumin Level 2.7 g/dL (3.5-5.0); Alkaline Phosphatase 55 U/L (39-117); Anion Gap 10 (12-20); Aspartate Amino Transferase 18 U/L (5-31); Bilirubin Total 0.4 mg/dL (0.0-1.0); Blood Urea Nitrogen 41 mg/dL (9-16); Calcium 9.1 mg/dL (8.4-10.2); Carbon Dioxide 21 mmol/L (22-29); Chloride 99 mmol/L (96-108); Creatinine Clr Calc Pharmacy 23.8; Estimated Glomerular Filt Rate 39; Glucose Random 107 mg/dL (60-115); Lipase 19 U/L (8-78); Magnesium 2.3 mg/dL (1.6-2.6); Potassium 4.9 mmol/L (3.3-5.1); Sodium 125 mmol/L (135-145); Total Protein 7.4 g/dL (6.5-8.0)
[2023-02-11 14:02] LABS: B Type Natriuretic Peptide 352 pg/mL (<100)
[2023-02-11 14:07] LABS: Troponin-I High Sensitivity 8.4 ng/L (<3.5-17.0)
[2023-02-11 14:17] LABS: Venous Blood Gas Refer to POC result
[2023-02-11 14:18] LABS: VBG Base Excess 3.7 mmol/L; VBG HCO3 25 mmol/L (22-26); VBG pCO2 29 mmHg; VBG pH 7.54 (7.32-7.43); VBG pO2 76 mmHg
[2023-02-11] MEDS: Acetaminophen 325 MG TABLET 650 MG PO (14:22)
--- NOTE | 2023-02-11 15:42 | MHC.EDTECH ---
this pct assumed care of pt at 1500 ,vitals sign taken ,pt was reposition and boosted up in bed ,pt is resting quietly in bed ,pt at beside .
[2023-02-11 16:43] LABS: Influenza A PCR NEGATIVE (Negative); Influenza B PCR NEGATIVE (Negative); Resp Syncy Virus RNA Qual PCR NEGATIVE (Negative); SARS COV2 PCR INHOUSE NEGATIVE (Negative)
[2023-02-11] MEDS: 0.9 % Sodium Chloride 1,000 ML 999 ML IV ×2 (17:22→17:23)
--- NOTE | 2023-02-11 17:38 | P.HPHOSP_ITS ---
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 Patient also reports feeling fevers at home however did not recorded actual temperature. Patient denies shortness of breath however she is observed with pursed lip breathing. She reports that she has been instructed by her PCP to drink only 18 oz of water daily for the past 2 weeks. She denies weight gain, increase or change in cough or increase in O2 demands at home. Patient also reports that she feels a little confused at times . At current time, patient denies Sick or potential COVID-19 exposures/ contacts, chest or abdominal pain or urinary frequency/hesitation. Chest x-ray:1.? Increased radiopacities in the right midlung field may reflect atelectasis versus evolving infectious/inflammatory etiology. 2.? Stable bronchovascular prominence bilaterally. Initial laboratory results:? WBC is 4.5, Hgb & Hct 9.1/28.6, unremarkable coagulation panel, VBG revealed pH 7.4 -remaining panel unremarkable. CMP reveals Na 125, carbon dioxide 21, anion gap 10, BUN /creatinine 41/1.30, lactic acid 1-blood cultures obtained and pending. influenza a/ B, RSV and SARs COVID- 19 were negative. In the emergency department the above was performed and patient received a total of 2 L NS, 650 mg p.o. acetaminophen,, 1 g ceftriaxone and 500 mg p.o. azithromycin. The decision was made to the patient for medical management. Review of Systems Review of Systems: A complete 12 point review of systems has been performed and is negative if not noted in [facility] Medical History CHF (congestive heart failure) COPD (chronic obstructive pulmonary disease) GERD (gastroesophageal reflux disease) High cholesterol History of colon cancer (~2002) HTN (hypertension) Insomnia Multinodular thyroid Osteopenia (~2001) Rheumatic fever Subarachnoid bleed Family History Father Colon cancer Paternal Aunt Colon cancer Sister Breast cancer Surgical History History of appendectomy History of bone marrow biopsy History of colonoscopy History of hemicolectomy History of lung biopsy History of tonsillectomy S/P thyroid biopsy Social History Household Members: Spouse Housing: House Are you a primary career discovery teacher to a significant other at home: No Do you presently have visiting nurse or other home services: No Alcohol intake: never Patient Tobacco Use Status: Former Tobacco user Quit Date: 1979 Smoked: 20 +/- Smoked in Last 30 Days: No Use of substances other than those prescribed or required for medical reasons: No Advance Directives: Yes Advance Directives on File: Yes Advance Directives Date on File: 08/20/22 service: No Current occupational status: retired Meds Allergies Allergy/AdvReac Type Severity Reaction Status Date / Time cimetidine [From TAGAMET] Allergy Mild HEADACHES Verified 02/11/23 12:27 lisinopril [LISINOPRIL] Allergy Mild COUGH Verified 02/11/23 12:27 phenytoin [Dilantin] Allergy Unknown rash Verified 02/11/23 12:27 hydrochlorothiazide AdvReac Shortness Verified 02/11/23 12:27 of Breath Active Medications: Current Medications Sodium Chloride (Ns) 1,000 mls @ 999 mls/hr IV .Q1H1M MICAELA Stop: 02/11/23 18:15 Last Admin: 02/11/23 17:22 Dose: 999 mls/hr Sodium Chloride (Ns) 1,000 mls @ 999 mls/hr IV .Q1H1M MICAELA Stop: 02/11/23 18:15 Last Admin: 02/11/23 17:23 Dose: 999 mls/hr Ceftriaxone Sodium 1 gm/ (Sodium Chloride) 50 mls @ 100 mls/hr IV ONCE ONE Stop: 02/11/23 17:42 Pharmacy Consult (Consult Rx Perform Med Rec) 1 each MISCELLANE ONCE PRN PRN Reason: Consult order Home Medications Medication Instructions Recorded Confirmed Last Taken Type cholecalciferol (vitamin D3) 50 50 mcg PO DAILY@1800 06/14/20 02/11/2302/10/23 History mcg (2,000 unit) tablet ferrous sulfate 325 mg (65 mg 325 mg PO DAILY@1800 06/14/20 02/11/23 02/10/23 History iron) tablet multivitamin 1 tab PO DAILY 06/14/20 02/11/23 02/11/23 History olmesartan 40 mg tablet 40 mg PO DAILY 06/14/20 02/11/23 02/11/23 History omeprazole 40 mg capsule,delayed 40 mg PO DAILY@0630 06/14/20 02/11/23 02/11/23 History release simvastatin 40 mg tablet 40 mg PO BEDTIME 06/14/20 02/11/23 02/10/23 History ascorbic acid (vitamin C) 500 mg 500 mg PO DAILY@1800 11/29/21 02/11/23 02/10/23 History tablet docusate sodium 100 mg capsule 100 mg PO BID 11/29/21 02/11/23 02/11/23 History (Colace) carvedilol 3.125 mg tablet 3.125 mg PO DAILY@0900,1800 03/08/22 02/11/23 02/11/23 History hydralazine 50 mg tablet 50 mg PO TID 08/22/22 02/11/23 02/11/23 History furosemide 20 mg tablet 20 mg PO MOTUWEFRSA@0900 02/11/23 02/11/23 02/11/23 History nifedipine 60 mg tablet,extended 60 mg PO BEDTIME 02/11/23 02/11/23 02/10/23 History release trazodone 50 mg tablet 100 mg PO BEDTIME 02/11/23 02/11/23 02/10/23 History Physical Exam Vital Signs and Narrative: Vital Signs: Last Vital Signs Temp 99.3 F 02/11/23 15:29 Pulse 59 02/11/23 17:24 Resp 18 02/11/23 17:24 BP 114/48 L 02/11/23 17:24 Pulse Ox 98 02/11/23 17:24 O2 Del Method Nasal Cannula 02/11/23 17:24 O2 Flow Rate 4 02/11/23 17:24 Oxygen Flow Rate 2 02/11/23 12:27 BMI result Body Mass Index 21.7 Const: Other: General: Appears stated age, in no acute distress, observed on 4 L nasal cannula with pursed lip breathing, answers questions accurately and appropriately. and son are at bedside. Skin: Warm and well perfused, no obvious bruises or open wounds noted Respiratory: Faint crackles noted to bases, mild wheezing noted bilaterally. Cardiac: Regular rhythm, no rubs, gallops, murmurs or clicks. No JVD/carotid bruits. Abdomen: Soft, non-distended, bowel sounds noted throughout Extremities: No pedal or bilateral upper extremity edema noted, no erythema tenderness with palpation. Neuro: Alert and oriented x3 Psych: Mood appropriate, no agitation /restlessness noted. Results Labs 02/11/23 13:28 02/11/23 13:28 Labs: Laboratory Results - last 24 hr 02/11/23 02/11/23 02/11/23 13:28 13:28 13:28 MCV 89.9 MCH 28.6 MCHC 31.8 RDW 15.8 Plt Count 281 MPV 8.6 L Immature Gran % (Auto) 1.1 H Neut % (Auto) 85.9 H Lymph % (Auto) 5.1 L Kleberg % (Auto) 6.0 Eos % (Auto) 1.5 Baso % (Auto) 0.4 Lymph # (Auto) 0.2 L Kleberg # (Auto) 0.3 Eos # (Auto) 0.1 Baso # (Auto) 0.0 Abs Immat Gran (auto) 0.05 H Absolute Neuts (auto) 3.9 Absolute Nucleated RBC 0.000 Nucleated RBC % (auto) 0.0 PT 12.5 INR 1.1 APTT 30.8 VBG pH VBG pCO2 VBG pO2 VBG HCO3 VBG O2 Saturation VBG Base Excess Anion Gap 10 L Estim Creat Clear Calc 23.8 Estimated GFR 39 Random Glucose 107 Lactic Acid Calcium 9.1 Magnesium 2.3 Total Bilirubin 0.4 AST 18 ALT 16 Alkaline Phosphatase 55 B-Natriuretic Peptide Total Protein 7.4 Albumin 2.7 L Lipase 19 Influenza Type A (PCR) Influenza Type B (PCR) RSV RNA Qual (PCR) SARS-CoV-2 RNA (RT-PCR) 02/11/23 02/11/23 02/11/23 13:28 13:29 14:10 MCV MCH MCHC RDW Plt Count MPV Immature Gran % (Auto) Neut % (Auto) Lymph % (Auto) Kleberg % (Auto) Eos % (Auto) Baso % (Auto) Lymph # (Auto) Kleberg # (Auto) Eos # (Auto) Baso # (Auto) Abs Immat Gran (auto) Absolute Neuts (auto) Absolute Nucleated RBC Nucleated RBC % (auto) PT INR APTT VBG pH 7.54 H VBG pCO2 29 VBG pO2 76 VBG HCO3 25 VBG O2 Saturation 98.0 VBG Base Excess 3.7 Anion Gap Estim Creat Clear Calc Estimated GFR Random Glucose Lactic Acid 1.0 Calcium Magnesium Total Bilirubin AST ALT Alkaline Phosphatase B-Natriuretic Peptide 352 H Total Protein Albumin Lipase Influenza Type A (PCR) Influenza Type B (PCR) RSV RNA Qual (PCR) SARS-CoV-2 RNA (RT-PCR) 02/11/23 15:20 MCV MCH MCHC RDW Plt Count MPV Immature Gran % (Auto) Neut % (Auto) Lymph % (Auto) Kleberg % (Auto) Eos % (Auto) Baso % (Auto) Lymph # (Auto) Kleberg # (Auto) Eos # (Auto) Baso # (Auto) Abs Immat Gran (auto) Absolute Neuts (auto) Absolute Nucleated RBC Nucleated RBC % (auto) PT INR APTT VBG pH VBG pCO2 VBG pO2 VBG HCO3 VBG O2 Saturation VBG Base Excess Anion Gap Estim Creat Clear Calc Estimated GFR Random Glucose Lactic Acid Calcium Magnesium Total Bilirubin AST ALT Alkaline Phosphatase B-Natriuretic Peptide Total Protein Albumin Lipase Influenza Type A (PCR) NEGATIVE Influenza Type B (PCR) NEGATIVE RSV RNA Qual (PCR) NEGATIVE SARS-CoV-2 RNA (RT-PCR) NEGATIVE Imaging Radiologist's Impressions: Impressions Chest X-Ray 02/11/23 14:33 IMPRESSION: 1. Increased radiopacities in the right midlung field may reflect atelectasis versus evolving infectious/inflammatory etiology. 2. Stable bronchovascular prominence bilaterally. Assessment and Plan (1) Pneumonia: Status: Acute Plan Acute on chronic respiratory failure with hypoxia Chronically dependent on oxygen COPD exacerbation Community-acquired Pneumonia - Patient admitted with acute on chronic respiratory failure and COPD exacerbation secondary to community acquired pneumonia. - Chest x-ray reveals? Increased radiopacities in the right midlung field may reflect atelectasis versus evolving infectious/inflammatory etiology. Stable bronchovascular prominence bilaterally. - Ceftriaxone azithromycin ordered to cover CAP - Albuterol p.r.n., Schedule DuoNebs q.i.d.. Solu-Medrol ordered. - Patient is normally maintained on 2 L nasal cannula, currently on 4 L, wean down as tolerated. - Analgesics, antiemetics and antipyretics ordered. - Obtain MRSA swab. Congestive heart failure with possible exacerbation - patient gives a history of Congestive heart failure, BNP noted to be 352 on arrival which appears to be her baseline , she does have faint crackles to bases. - strict I&Os and daily weights. Patient did receive 2 L NS and ED. Monitor for signs of overload. - continue home dose carvedilol and furosemide for now-may require additional dose of Lasix. Hyponatremia - patient carries a history of chronic hyponatremia. Na today noted to be 125. She received 2 L of NS in the ED. monitor levels in a.m.. -PCP has been restricting patient to 18 oz of water for the past 2 weeks per patient. Recheck Na levels in a.m.. Hypertension - continue home regimen of olmesartan, nifedipine, hydralazine and carvedilol. Hyperlipidemia -continue home dose of simvastatin. Insomnia -continue trazodone with holding parameters. DVT prophylaxis -heparin subQ b.i.d.. Code status-patient is a DNR/ DNI -confirmed with patient at time of admission in the presence of her and son. Time Spent With Patient Time: Total time managing care of this patient today ____ minutes. Quality Stroke Does the patient have a stroke diagnosis?: No VTE Prior VTE?: No VTE Risk Level:: Medical - moderate - high VTE Device Contraindication: N/A - Device Ordered VTE Drug Contraindication: N/A - Med Ordered
[2023-02-11] MEDS: cefTRIAXone sodium 1 GM in 0.9 % Sodium Chloride 50 ML IV (17:52)
[2023-02-11 17:59] LABS: Appearance Urine Clear; Color Urine Yellow; Glucose Urine UA Negative (Negative); Leukocyte Esterase Urine Negative (Negative); Nitrite Urine Negative (Negative); Urine Blood Negative (Negative); Urine Ketones Negative (Negative); Urine Protein Negative (Neg-Trace)
[2023-02-11 18:07] LABS: Bacteria Urine None Seen (None Seen); RBC Urine 0-2 /HPF (0-2); Squamous Epithelial Cell Urine 0-2 /HPF (0-2); WBC Urine 0-5 /HPF (0-5)
--- NOTE | 2023-02-11 18:32 | PHA.MEDREC ---
Pharmacy Consult ? Medication Reconciliation Pharmacy has completed the medication reconciliation. Patient brought in list of medications that matched claim history. Patient reported her specific times she takes her medications. However, was confused on which were at dinner time vs before bed. Rufina Arguelles, [place]
[2023-02-11] MEDS: Azithromycin 500 MG TABLET PO (18:42)
--- OUTSIDE RECORDS SUMMARY | 2023-02-11 18:51 | XMS_ITS ---
Author Name Paul Chowdhury Address [address] [place] [address] Organization [facility] Address [address] [place] [address] Care Team Providers Care Bung Sewer Name Role Phone Paul Chowdhury Unavailable [phone] PROBLEMS Type Condition ICD9-CM Code XSW16-QO Code Onset Dates Condition Status SNOMED Code Problem Gastroesophageal reflux disease without esophagitis K21.9 Active 75900823 5 Problem Hypertension, unspecified type I10 Active 04706324 Problem Hiatal hernia K44.9 Active 25864914 ALLERGIES Substance Reaction Event Type Date Status Lisinopril Unknown Drug Allergy Sep, Active Dilantin Unknown Drug Allergy Sep, Active ENCOUNTERS Encounter Location Date Diagnosis [facility] [address] [place] [phone] November, [facility] [address] [place] [phone] Sep, Gastroesophageal reflux disease without esophagitis K21.9 and Hiatal hernia K44.9 [facility] [place] [address] [place], [place] [id number] Apr, [facility] [address] [place] [phone] Feb, [facility] [address] [place] [phone] Feb, [facility] [address] [place] [phone] Feb, GERD (gastroesophageal reflux disease) 530.81 ; 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 ; Anemia 285.9 and Colon cancer screening V76.51 [facility] [place] [address] [place] [id number] November, [facility] [address] [place] [address] Oct, [facility] [address] [place] [address] Oct, Unspecified anemia 285.9 ; 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 and Esophageal reflux 530.81 [facility] [place] [address] [place], [place] [id number] Jan, [facility] [place] [address] [place] [id number] Sep, [facility] [place] [address] [place] [id number] Oct, [facility] [place] [address] [place] [id number] Jul, [facility] [place] [address] [place] [id number] Oct, [facility] [place] [address] [place] [id number] May, IMMUNIZATIONS Vaccine Route Administration Date Status [...] [employer] [address] [facility] [address] GIC [employer] self ZULMA PEREZ [id number] MEDICARE OF [place] [address] [facility] [phone] [id number] MED[place]ARE OF [place] self ZULMA PEREZ [id number]
[2023-02-11] MEDS: Albuterol/Iprat 2.5/0.5MG 3 ML AMPUL.NEB INHALE (19:04)
[2023-02-11] MEDS: Heparin Sodium,Porcine 5,000 UNIT/ML VIAL 5000 UNIT SUBCUT (22:00)
[2023-02-11] MEDS: methylPREDNISolone Sod Succ 125 MG/2 ML VIAL 60 MG IVPUSH (22:10)
[2023-02-11] MEDS: Atorvastatin Calcium 20 MG TABLET PO (22:12)
[2023-02-11] MEDS: Docusate Sodium 100 MG CAPSULE PO (22:12)
[2023-02-11] MEDS: traZODone HCL 100 MG TABLET PO (22:12)
[2023-02-11] MEDS: hydrALAZINE HCl 50 MG TABLET PO (22:12)
--- NOTE | 2023-02-11 23:26 | PC.NURSE ---
pt transferred to hospital bed, positioned for comfort with warm blankets and pillows. bed locked in lowest position, call deluca in reach, pt verbalized understanding of use, vitals obtained
[2023-02-12] VITALS (12 sets, daily range): BP systolic 107–148; BP diastolic 52–73; PULSE 52–84; RESP 16–20; TEMP 36–37.7; O2SAT 94–98; BMI 22.7; BMI 22.5
[2023-02-12] MEDS: 0.9 % Sodium Chloride Flush 3 ML SYRINGE IVFLUSH ×3 (03:08→16:13)
[2023-02-12] MEDS: methylPREDNISolone Sod Succ 125 MG/2 ML VIAL 60 MG IVPUSH ×3 (03:22→18:15)
--- NOTE | 2023-02-12 03:23 | PC.NURSE ---
patient received in the unit in bed with eyes closed patient showing no distress at this time patient was administered all medications with no issues patient will continue to be monitored for safety
--- NOTE | 2023-02-12 04:24 | MHC.EDTECH ---
PATIENT 0400 ROUNDING DONE ,VITALS SIGN TAKEN ,PT UP TO BEDSIDE COMMODE ,VOID LARGE AMOUNT OF URINE ,BACK TO BED FRESH ICE WATER GIVEN .
[2023-02-12] MEDS: Omeprazole 40 MG CAPSULE.DR PO (06:09)
[2023-02-12] MEDS: Heparin Sodium,Porcine 5,000 UNIT/ML VIAL 5000 UNIT SUBCUT ×2 (07:37→18:15)
--- NOTE | 2023-02-12 07:54 | PC.NURSE ---
pt a&o to self, stating that she is in the ICU waiting for a bed and also stating that the month is end of february, vss, edgardor on the quality assurance monitor final, phlebotomy bedside drawing labs from pt after failed attempt of drawing labs from EJ - would not draw back any blood, pt stating 0 pain, breakfast tray bedside, pt sitting upright resting comfortably.
[2023-02-12] MEDS: Albuterol/Iprat 2.5/0.5MG 3 ML AMPUL.NEB INHALE ×3 (08:02→19:23)
[2023-02-12] MEDS: hydrALAZINE HCl 50 MG TABLET PO ×3 (08:24→19:59)
[2023-02-12] MEDS: Multivitamin TABLET 1 TAB PO (08:26)
[2023-02-12] MEDS: Furosemide 20 MG TABLET PO (08:26)
[2023-02-12] MEDS: Docusate Sodium 100 MG CAPSULE PO ×2 (08:26→20:00)
--- NOTE | 2023-02-12 08:27 | PC.NURSE ---
medication administered per provider order, carvedilol and valsartan not in pyrix - will report to room upstairs when giving RN report.
--- NOTE | 2023-02-12 08:35 | PC.NURSE ---
floor called to give report- olmaner texted nurse as well, awaiting call back
[2023-02-12 08:37] LABS: Alanine Aminotransferase 19 U/L (0-31); Albumin Level 2.5 g/dL (3.5-5.0); Alkaline Phosphatase 59 U/L (39-117); Anion Gap 11 (12-20); Aspartate Amino Transferase 24 U/L (5-31); Bilirubin Total 0.2 mg/dL (0.0-1.0); Blood Urea Nitrogen 38 mg/dL (9-16); Calcium 9.1 mg/dL (8.4-10.2); Carbon Dioxide 19 mmol/L (22-29); Chloride 105 mmol/L (96-108); Creatinine Clr Calc Pharmacy 27.9; Estimated Glomerular Filt Rate 47; Glucose Random 147 mg/dL (60-115); Potassium 4.6 mmol/L (3.3-5.1); Sodium 130 mmol/L (135-145)
--- NOTE | 2023-02-12 08:46 | MHC.CM.PN ---
Patient is unavailable; CM spoke with /HCP/Adrien @ [phone] and addressed IMM with him (original will be mailed certified letter to Adrien and a copy has been placed on the chart). 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 Home/self care vs new VNA is the tentative plan and CM has initiated and will follow for dc planning. Patient is stefano aguirre'wilbert x4 and her PCP is Dr. Uri Houston.
--- NOTE | 2023-02-12 09:51 | PC.NURSE ---
report given to RN on IMC - tigertexted transporter, pr waiting to be transported upstairs.
[2023-02-12] MEDS: Valsartan 160 MG TABLET PO (11:28)
--- NOTE | 2023-02-12 14:29 | P.PNIM_ITS ---
Subjective Subjective Date of Service: 02/12/23 Interval History: no focal complaints save fatigued Review of Systems denies chest pain Denies shortness of breath Denies nausea vomiting diarrhea Denies fever chills Physical Exam Vital Signs: Vital Signs: Last Vital Signs Temp 96.8 F 02/12/23 10:15 Pulse 68 02/12/23 11:04 Resp 16 02/12/23 11:04 BP 148/68 H 02/12/23 10:15 Pulse Ox 95 02/12/23 10:15 O2 Del Method Nasal Cannula 02/12/23 10:15 O2 Flow Rate 2 02/12/23 10:15 Oxygen Flow Rate 2 02/11/23 12:27 BMI result Body Mass Index 22.5 Const: Other: no acute distress Resp: Other: faint crackles bilateral bases otherwise clear throughout Cardio: Other: no S4; positive S1-S2; no S3 murmurs rubs or gallops GI: Other: soft nontender nondistended normoactive bowel sounds Neuro: Other: cranial nerves 2-12 grossly intact as tested. Motor is 5/5 all extremities. Sensation intact. Cognition Extrem: Other: no edema bilaterally Objective Data Active Medications Acetaminophen (Acetaminophen 325 Mg Tablet) 650 mg PO Q6H PRN PRN Reason: Pain, Mild (Pain Scale 1-3) Albuterol Sulfate (Albuterol Sulfate 90 Mcg 8 Gm Inhaler) 2 puff INHALE Q4H PRN PRN Reason: Shortness of Breath/Wheezing Albuterol/Ipratropium (Albuterol/Iprat 2.5/0.5mg 3 Ml Ampul.Neb) 3 ml INHALE RQID [facility] Last Admin: 02/12/23 11:02 Dose: 3 ml Documented By: LYUBOV Ascorbic Acid (Ascorbic Acid 500 Mg Tablet) 500 mg PO DAILY@1800 [facility] Atorvastatin Calcium (Atorvastatin Calcium 20 Mg Tablet) 20 mg PO BEDTIME [facility] Last Admin: 02/11/23 22:12 Dose: 20 mg Documented By: LIANA Azithromycin (Azithromycin 500 Mg Tablet) 500 mg PO Q24H [facility] Carvedilol (Carvedilol 3.125 Mg Tablet) 3.125 mg PO DAILY@0900,1800 [facility]; Protocol Last Admin: 02/12/23 11:28 Dose: Not Given Documented By: AYESHA Non-Admin Reason: Decreased Heart Rate Docusate Sodium (Docusate Sodium 100 Mg Capsule) 100 mg PO BID [facility] Last Admin: 02/12/23 08:26 Dose: 100 mg Documented By: KELSY Ferrous Sulfate (Ferrous Sulfate 324 Mg Tablet.) 324 mg PO DAILY@1800 [facility] Furosemide (Furosemide 20 Mg Tablet) 20 mg PO MOTUWEFRSA@0900 [facility]; Protocol Last Admin: 02/12/23 08:26 Dose: 20 mg Documented By: KELSY Heparin Sodium (Porcine) (Heparin Sodium,Porcine 5,000 Unit/Ml Vial) 5,000 unit SUBCUT Q12H [facility] Last Admin: 02/12/23 07:37 Dose: 5,000 unit Documented By: KELSY Hydralazine HCl (Hydralazine Hcl 50 Mg Tablet) 50 mg PO TID [facility]; Protocol Last Admin: 02/12/23 08:24 Dose: 50 mg Documented By: KELSY Ceftriaxone Sodium 1 gm/ (Sodium Chloride) 50 mls @ 100 mls/hr IV Q24H [facility] Methylprednisolone Sodium Succinate (Methylprednisolone Sod Succ 125 Mg/2 Ml Vial) 60 mg IVPUSH Q8H [facility] Last Admin: 02/12/23 11:28 Dose: 60 mg Documented By: AYESHA Multivitamins/Vitamin C (Multivitamin Tablet) 1 tab PO DAILY [facility] Last Admin: 02/12/23 08:26 Dose: 1 tab Documented By: KELSY Nifedipine (Nifedipine Er 60 Mg Tab.Er.24) 60 mg PO BEDTIME [facility] Last Admin: 02/12/23 03:07 Dose: Not Given Omeprazole (Omeprazole 40 Mg Capsule.) 40 mg PO DAILY@0630 [facility] Last Admin: 02/12/23 06:09 Dose: 40 mg Documented By: VENECIA Ondansetron HCl (Ondansetron Hcl 4 Mg/2 Ml Vial) 4 mg IVPUSH Q8H PRN PRN Reason: Nausea and Vomiting Pharmacy Consult (Consult Rx Perform Med Rec) 1 each MISCELLANE ONCE PRN PRN Reason: Consult order Senna (Sennosides 8.6 Mg Tablet) 17.2 mg PO BEDTIME PRN PRN Reason: Constipation Sodium Chloride (0.9 % Sodium Chloride Flush 3 Ml Syringe) 3 ml IVFLUSH QSHIFT [facility] Last Admin: 02/12/23 09:47 Dose: 3 ml Documented By: KELSY Trazodone HCl (Trazodone Hcl 100 Mg Tablet) 100 mg PO BEDTIME [facility] Last Admin: 02/11/23 22:12 Dose: 100 mg Documented By: LIANA Valsartan (Valsartan 160 Mg Tablet) 160 mg PO DAILY [facility] Last Admin: 02/12/23 11:28 Dose: 160 mg Documented By: AYESHA Labs 02/11/23 13:28 02/12/23 07:58 Labs: Laboratory Results - last 24 hr 02/11/23 02/11/23 02/12/23 15:20 17:51 07:58 Anion Gap 11 L Estim Creat Clear Calc 27.9 Estimated GFR 47 Random Glucose 147 H Calcium 9.1 Total Bilirubin 0.2 AST 24 ALT 19 Alkaline Phosphatase 59 Total Protein 7.0 Albumin 2.5 L Urine Color Yellow Urine Appearance Clear Urine pH 5.0 Ur Specific [place] 1.010 Urine Protein Negative Urine Glucose (UA) Negative Urine Ketones Negative Urine Blood Negative Urine Nitrite Negative Ur Leukocyte Esterase Negative Urine RBC 0-2 Urine WBC 0-5 Ur Squamous Epith Cells 0-2 Urine Bacteria None Seen Hyaline Casts 3-5 Influenza Type A (PCR) NEGATIVE Influenza Type B (PCR) NEGATIVE RSV RNA Qual (PCR) NEGATIVE SARS-CoV-2 RNA (RT-PCR) NEGATIVE Assessment and Plan (1) Pneumonia: Status: Acute (2) (HFpEF) heart failure with preserved ejection fraction: Status: Acute (3) Acute hyponatremia: Status: Acute Plan 87-year-old female with a past medical history significant for CHF, COPD O2 dependent 2 L at home hypertension chronic hyponatremia presents with complaints of general weakness and fatigue for the past few days prior to admission. Patient also reported subjective fevers. Patient initially denied shortness of breath however was noted to be pursed lip breathing on arrival. ER workup demonstrated right-sided opacities thought to be consistent with infiltrate. 1. Community-acquired pneumonia - ceftriaxone/ azithromycin ( 2) - DuoNebs q.4 hours while awake - titrate O2 back to outpatient L flow - pulse dose steroids 2. HFpEF - do not believe patient in active failure - continue outpatient therapies including Coreg hydralazine nifedipine and Diovan 3. Hyponatremia - appears chronic in nature; question hypovolemic hyponatremia - no water restriction -follow renals/divalents - spot urine for sodium 4. Hypertension - acceptable control on current therapies - adjust as indicated heparin subQ b.i.d. DNR/DNI. Requires ongoing hospitalization for IV antibiotics to treat community-acquired pneumonia Time Spent With Patient Time: Total time managing care of this patient today ____ minutes. Quality Stroke Does the patient have a stroke diagnosis?: No VTE Prior VTE?: No VTE Risk Level:: Medical - moderate - high VTE Device Contraindication: N/A - Device Ordered VTE Drug Contraindication: N/A - Med Ordered
[2023-02-12] MEDS: Ascorbic Acid 500 MG TABLET PO (16:12)
[2023-02-12] MEDS: cefTRIAXone sodium 1 GM in 0.9 % Sodium Chloride 50 ML IV (16:12)
[2023-02-12] MEDS: Ferrous Sulfate 324 MG TABLET.DR PO (16:13)
[2023-02-12] MEDS: Azithromycin 500 MG TABLET PO (16:13)
[2023-02-12] MEDS: Atorvastatin Calcium 20 MG TABLET PO (19:59)
[2023-02-12] MEDS: NIFEdipine ER 60 MG TAB.ER.24 PO (19:59)
[2023-02-12] MEDS: traZODone HCL 100 MG TABLET PO (20:01)
[2023-02-13] VITALS (10 sets, daily range): BP systolic 108–151; BP diastolic 53–69; PULSE 53–69; RESP 16–20; TEMP 36.1–36.7; O2SAT 95–99; BMI 24.6
[2023-02-13] MEDS: 0.9 % Sodium Chloride Flush 3 ML SYRINGE IVFLUSH ×4 (00:03→20:13)
[2023-02-13] MEDS: methylPREDNISolone Sod Succ 125 MG/2 ML VIAL 60 MG IVPUSH ×3 (03:19→20:11)
[2023-02-13] MEDS: Omeprazole 40 MG CAPSULE.DR PO (05:53)
[2023-02-13] MEDS: Heparin Sodium,Porcine 5,000 UNIT/ML VIAL 5000 UNIT SUBCUT ×2 (05:54→17:17)
[2023-02-13 07:19] LABS: Hematocrit 27.2 % (37.0-47.0); Hemoglobin 8.7 g/dl (12.0-16.0); Mean Corpuscular Hemoglobin 28.7 pg (27.0-33.0); Mean Corpuscular Volume 89.8 fL (80.0-98.0); Mean Platelet Volume 8.8 fL (9.4-12.3); Platelet Count 266 X10*3/uL (160-400); Red Blood Count 3.03 X10*6/uL (4.20-5.50); Red Cell Distribution Width 15.6 % (11.0-16.0); White Blood Count 5.1 X10*3/uL (4.8-10.8)
[2023-02-13] MEDS: hydrALAZINE HCl 50 MG TABLET PO ×3 (07:37→20:12)
[2023-02-13] MEDS: Valsartan 160 MG TABLET PO (07:37)
[2023-02-13] MEDS: Albuterol/Iprat 2.5/0.5MG 3 ML AMPUL.NEB INHALE ×4 (07:37→19:32)
[2023-02-13] MEDS: Furosemide 20 MG TABLET PO (07:37)
[2023-02-13] MEDS: carvediloL 3.125 MG TABLET PO ×2 (07:37→17:17)
[2023-02-13] MEDS: Docusate Sodium 100 MG CAPSULE PO ×2 (07:37→20:12)
[2023-02-13] MEDS: Multivitamin TABLET 1 TAB PO (07:42)
[2023-02-13 07:45] LABS: Alanine Aminotransferase 22 U/L (0-31); Albumin Level 2.5 g/dL (3.5-5.0); Alkaline Phosphatase 61 U/L (39-117); Anion Gap 10 (12-20); Aspartate Amino Transferase 20 U/L (5-31); Bilirubin Total 0.2 mg/dL (0.0-1.0); Blood Urea Nitrogen 51 mg/dL (9-16); Calcium 9.2 mg/dL (8.4-10.2); Carbon Dioxide 23 mmol/L (22-29); Chloride 103 mmol/L (96-108); Creatinine Clr Calc Pharmacy 26.9; Estimated Glomerular Filt Rate 40; Glucose Fasting 135 mg/dL (60-99); Potassium 4.9 mmol/L (3.3-5.1); Sodium 131 mmol/L (135-145)
--- NOTE | 2023-02-13 15:17 | P.PNIM_ITS ---
Subjective Subjective Date of Service: 02/13/23 Interval History: somewhat improved overnight.. somewhat weaker Review of Systems denies chest pain Denies shortness of breath Denies nausea vomiting diarrhea Denies fever chills Physical Exam Vital Signs: Vital Signs: Last Vital Signs Temp 97.1 F 02/13/23 11:24 Pulse 58 02/13/23 11:36 Resp 16 02/13/23 11:36 BP 114/69 02/13/23 11:24 Pulse Ox 98 02/13/23 11:24 O2 Del Method Nasal Cannula 02/13/23 11:24 O2 Flow Rate 2.5 02/13/23 11:24 Oxygen Flow Rate 2 02/11/23 12:27 BMI result Body Mass Index 24.6 Const: Other: no acute distress Resp: Other: faint crackles bilateral bases otherwise clear throughout Cardio: Other: no S4; positive S1-S2; no S3 murmurs rubs or gallops GI: Other: soft nontender nondistended normoactive bowel sounds Neuro: Other: cranial nerves 2-12 grossly intact as tested. Motor is 5/5 all extremities. Sensation intact. Cognition Extrem: Other: no edema bilaterally Objective Data Active Medications Acetaminophen (Acetaminophen 325 Mg Tablet) 650 mg PO Q6H PRN PRN Reason: Pain, Mild (Pain Scale 1-3) Albuterol Sulfate (Albuterol Sulfate 90 Mcg 8 Gm Inhaler) 2 puff INHALE Q4H PRN PRN Reason: Shortness of Breath/Wheezing Albuterol/Ipratropium (Albuterol/Iprat 2.5/0.5mg 3 Ml Ampul.Neb) 3 ml INHALE RQID [facility] Last Admin: 02/13/23 15:16 Dose: 3 ml Documented By: GABRIEL Ascorbic Acid (Ascorbic Acid 500 Mg Tablet) 500 mg PO DAILY@1800 [facility] Last Admin: 02/12/23 16:12 Dose: 500 mg Documented By: AYESHA Atorvastatin Calcium (Atorvastatin Calcium 20 Mg Tablet) 20 mg PO BEDTIME [facility] Last Admin: 02/12/23 19:59 Dose: 20 mg Documented By: MARINA Azithromycin (Azithromycin 500 Mg Tablet) 500 mg PO Q24H [facility] Last Admin: 02/12/23 16:13 Dose: 500 mg Documented By: AYESHA Carvedilol (Carvedilol 3.125 Mg Tablet) 3.125 mg PO DAILY@0900,1800 [facility]; Protocol Last Admin: 02/13/23 07:37 Dose: 3.125 mg Documented By: JENNY Docusate Sodium (Docusate Sodium 100 Mg Capsule) 100 mg PO BID [facility] Last Admin: 02/13/23 07:37 Dose: 100 mg Documented By: JENNY Ferrous Sulfate (Ferrous Sulfate 324 Mg Tablet.) 324 mg PO DAILY@1800 [facility] Last Admin: 02/12/23 16:13 Dose: 324 mg Documented By: AYESHA Furosemide (Furosemide 20 Mg Tablet) 20 mg PO MOTUWEFRSA@0900 [facility]; Protocol Last Admin: 02/13/23 07:37 Dose: 20 mg Documented By: JENNY Heparin Sodium (Porcine) (Heparin Sodium,Porcine 5,000 Unit/Ml Vial) 5,000 unit SUBCUT Q12H [facility] Last Admin: 02/13/23 05:54 Dose: 5,000 unit Documented By: ANGIE Hydralazine HCl (Hydralazine Hcl 50 Mg Tablet) 50 mg PO TID [facility]; Protocol Last Admin: 02/13/23 07:37 Dose: 50 mg Documented By: JENNY Ceftriaxone Sodium 1 gm/ (Sodium Chloride) 50 mls @ 100 mls/hr IV Q24H [facility] Last Infusion: 02/12/23 16:46 Dose: 0 mls/hr Documented By: AYESHA Methylprednisolone Sodium Succinate (Methylprednisolone Sod Succ 125 Mg/2 Ml Vial) 60 mg IVPUSH Q8H [facility] Last Admin: 02/13/23 11:38 Dose: 60 mg Documented By: JENNY Multivitamins/Vitamin C (Multivitamin Tablet) 1 tab PO DAILY [facility] Last Admin: 02/13/23 07:42 Dose: 1 tab Documented By: JENNY Nifedipine (Nifedipine Er 60 Mg Tab.Er.24) 60 mg PO BEDTIME [facility] Last Admin: 02/12/23 19:59 Dose: 60 mg Documented By: MARINA Omeprazole (Omeprazole 40 Mg Capsule.) 40 mg PO DAILY@0630 [facility] Last Admin: 02/13/23 05:53 Dose: 40 mg Documented By: ANGIE Ondansetron HCl (Ondansetron Hcl 4 Mg/2 Ml Vial) 4 mg IVPUSH Q8H PRN PRN Reason: Nausea and Vomiting Pharmacy Consult (Consult Rx Perform Med Rec) 1 each MISCELLANE ONCE PRN PRN Reason: Consult order Senna (Sennosides 8.6 Mg Tablet) 17.2 mg PO BEDTIME PRN PRN Reason: Constipation Sodium Chloride (0.9 % Sodium Chloride Flush 3 Ml Syringe) 3 ml IVFLUSH QSHIFT [facility] Last Admin: 02/13/23 07:40 Dose: 3 ml Documented By: JENNY Trazodone HCl (Trazodone Hcl 100 Mg Tablet) 100 mg PO BEDTIME [facility] Last Admin: 02/12/23 20:01 Dose: 50 mg Documented By: MARINA Comments: per patient request Valsartan (Valsartan 160 Mg Tablet) 160 mg PO DAILY [facility] Last Admin: 02/13/23 07:37 Dose: 160 mg Documented By: JENNY Labs 02/13/23 06:54 02/13/23 06:54 Labs: Laboratory Results - last 24 hr 02/13/23 02/13/23 02/13/23 06:05 06:54 06:54 MCV 89.8 MCH 28.7 MCHC 32.0 RDW 15.6 Plt Count 266 MPV 8.8 L Absolute Nucleated RBC 0.000 Nucleated RBC % (auto) 0.0 Anion Gap 10 L Estim Creat Clear Calc 26.9 Estimated GFR 40 Fasting Glucose 135 H Calcium 9.2 Total Bilirubin 0.2 AST 20 ALT 22 Alkaline Phosphatase 61 Total Protein 7.0 Albumin 2.5 L Ur Random Sodium 36.0 Microbiology Microbiology Results: Microbiology 02/11/23 13:28 Blood Culture - Preliminary Blood - Venous No growth after 24 hours. 02/11/23 13:28 Blood Culture - Preliminary Blood - Venous No growth after 24 hours. Assessment and Plan (1) Pneumonia: Status: Acute (2) Acute hyponatremia: Status: Acute (3) (HFpEF) heart failure with preserved ejection fraction: Status: Acute Plan 87-year-old female with a past medical history significant for CHF, COPD O2 dependent 2 L at home hypertension chronic hyponatremia presents with complaints of general weakness and fatigue for the past few days prior to admission. Patient also reported subjective fevers. Patient initially denied shortness of breath however was noted to be pursed lip breathing on arrival. ER workup demonstrated right-sided opacities thought to be consistent with infiltrate. 1. Community-acquired pneumonia - ceftriaxone/ azithromycin ( 3) - DuoNebs q.4 hours while awake - titrate O2 back to outpatient L flow - pulse dose steroids 2. HFpEF - do not believe patient in active failure - continue outpatient therapies including Coreg hydralazine nifedipine and Diovan 3. Hyponatremia - appears chronic in nature; question hypovolemic hyponatremia -follow renals/divalents -spot urine for sodium.. 36. Will DC Lasix. - 1 L normal saline and follow up in a.m. 4. Hypertension - acceptable control on current therapies - adjust as indicated heparin subQ b.i.d. DNR/DNI. Requires ongoing hospitalization for IV antibiotics to treat community-acquired pneumonia. PT now recommending short-term rehab Time Spent With Patient Time: Total time managing care of this patient today ____ minutes. Quality Stroke Does the patient have a stroke diagnosis?: No VTE Prior VTE?: No VTE Risk Level:: Medical - moderate - high VTE Device Contraindication: N/A - Device Ordered VTE Drug Contraindication: N/A - Med Ordered
[2023-02-13] MEDS: 0.9 % Sodium Chloride 1,000 ML 100 ML IVCONT (16:15)
[2023-02-13] MEDS: Ferrous Sulfate 324 MG TABLET.DR PO (17:17)
[2023-02-13] MEDS: cefTRIAXone sodium 1 GM in 0.9 % Sodium Chloride 50 ML IV (17:17)
[2023-02-13] MEDS: Azithromycin 500 MG TABLET PO (17:17)
[2023-02-13] MEDS: Ascorbic Acid 500 MG TABLET PO (17:17)
[2023-02-13] MEDS: traZODone HCL 100 MG TABLET PO (20:11)
[2023-02-13] MEDS: NIFEdipine ER 60 MG TAB.ER.24 PO (20:12)
[2023-02-13] MEDS: Atorvastatin Calcium 20 MG TABLET PO (20:12)
[2023-02-14] VITALS (12 sets, daily range): BP systolic 130–172; BP diastolic 58–71; PULSE 60–81; RESP 16–20; TEMP 36.1–36.7; O2SAT 06–98; BMI 25.0
[2023-02-14] MEDS: 0.9 % Sodium Chloride 1,000 ML 100 ML IVCONT ×3 (01:38→20:49)
[2023-02-14] MEDS: methylPREDNISolone Sod Succ 125 MG/2 ML VIAL 60 MG IVPUSH ×3 (02:37→18:05)
[2023-02-14] MEDS: Heparin Sodium,Porcine 5,000 UNIT/ML VIAL 5000 UNIT SUBCUT ×2 (06:24→18:05)
[2023-02-14] MEDS: Omeprazole 40 MG CAPSULE.DR PO (06:25)
[2023-02-14] MEDS: Albuterol/Iprat 2.5/0.5MG 3 ML AMPUL.NEB INHALE ×4 (07:32→20:01)
[2023-02-14 07:33] LABS: Hematocrit 29.6 % (37.0-47.0); Hemoglobin 9.3 g/dl (12.0-16.0); Mean Corpuscular HGB Conc 31.4 g/dl (31.0-35.0); Mean Corpuscular Hemoglobin 28.7 pg (27.0-33.0); Mean Corpuscular Volume 91.4 fL (80.0-98.0); Mean Platelet Volume 8.6 fL (9.4-12.3); Platelet Count 282 X10*3/uL (160-400); Red Blood Count 3.24 X10*6/uL (4.20-5.50); Red Cell Distribution Width 15.6 % (11.0-16.0); White Blood Count 7.4 X10*3/uL (4.8-10.8)
[2023-02-14 07:47] LABS: Alanine Aminotransferase 25 U/L (0-31); Albumin Level 2.5 g/dL (3.5-5.0); Alkaline Phosphatase 54 U/L (39-117); Anion Gap 13 (12-20); Aspartate Amino Transferase 20 U/L (5-31); Bilirubin Total 0.1 mg/dL (0.0-1.0); Blood Urea Nitrogen 42 mg/dL (9-16); Carbon Dioxide 19 mmol/L (22-29); Chloride 108 mmol/L (96-108); Creatinine Clr Calc Pharmacy 34.5; Estimated Glomerular Filt Rate 53; Glucose Fasting 136 mg/dL (60-99); Potassium 4.9 mmol/L (3.3-5.1); Sodium 135 mmol/L (135-145)
[2023-02-14] MEDS: Docusate Sodium 100 MG CAPSULE PO ×2 (08:26→20:49)
[2023-02-14] MEDS: hydrALAZINE HCl 50 MG TABLET PO ×3 (08:26→20:49)
[2023-02-14] MEDS: Valsartan 160 MG TABLET PO (08:26)
[2023-02-14] MEDS: Multivitamin TABLET 1 TAB PO (08:26)
[2023-02-14] MEDS: carvediloL 3.125 MG TABLET PO ×2 (08:27→18:07)
--- NOTE | 2023-02-14 14:08 | HO.PM.IMPN ---
Subjective Subjective Date of Service: 02/14/23 Interval History: slowly improving; somewhat deconditioned as per physical therapy Review of Systems denies chest pain Denies shortness of breath Denies nausea vomiting diarrhea Denies fever chills Physical Exam Vital Signs: Vital Signs: Last Vital Signs Temp 97.6 F 02/14/23 11:46 Pulse 65 02/14/23 11:53 Resp 16 02/14/23 11:53 BP 143/65 H 02/14/23 11:46 Pulse Ox 98 02/14/23 11:46 O2 Del Method Nasal Cannula 02/14/23 11:46 O2 Flow Rate 2 02/14/23 07:42 Oxygen Flow Rate 2 02/11/23 12:27 BMI result Body Mass Index 25.0 Const: Other: no acute distress Resp: Other: faint crackles bilateral bases otherwise clear throughout Cardio: Other: no S4; positive S1-S2; no S3 murmurs rubs or gallops GI: Other: soft nontender nondistended normoactive bowel sounds Neuro: Other: cranial nerves 2-12 grossly intact as tested. Motor is 5/5 all extremities. Sensation intact. Cognition Extrem: Other: no edema bilaterally Objective Data Active Medications Acetaminophen (Acetaminophen 325 Mg Tablet) 650 mg PO Q6H PRN PRN Reason: Pain, Mild (Pain Scale 1-3) Albuterol Sulfate (Albuterol Sulfate 90 Mcg 8 Gm Inhaler) 2 puff INHALE Q4H PRN PRN Reason: Shortness of Breath/Wheezing Albuterol/Ipratropium (Albuterol/Iprat 2.5/0.5mg 3 Ml Ampul.Neb) 3 ml INHALE RQID [facility] Last Admin: 02/14/23 11:51 Dose: 3 ml Documented By: GABRIEL Ascorbic Acid (Ascorbic Acid 500 Mg Tablet) 500 mg PO DAILY@1800 [facility] Last Admin: 02/13/23 17:17 Dose: 500 mg Documented By: JENNY Atorvastatin Calcium (Atorvastatin Calcium 20 Mg Tablet) 20 mg PO BEDTIME [facility] Last Admin: 02/13/23 20:12 Dose: 20 mg Documented By: GREG Azithromycin (Azithromycin 500 Mg Tablet) 500 mg PO Q24H [facility] Last Admin: 02/13/23 17:17 Dose: 500 mg Documented By: JENNY Carvedilol (Carvedilol 3.125 Mg Tablet) 3.125 mg PO DAILY@0900,1800 [facility]; Protocol Last Admin: 02/14/23 08:27 Dose: 3.125 mg Documented By: LAURENCE Docusate Sodium (Docusate Sodium 100 Mg Capsule) 100 mg PO BID [facility] Last Admin: 02/14/23 08:26 Dose: 100 mg Documented By: LAURENCE Ferrous Sulfate (Ferrous Sulfate 324 Mg Tablet.) 324 mg PO DAILY@1800 [facility] Last Admin: 02/13/23 17:17 Dose: 324 mg Documented By: JENNY Heparin Sodium (Porcine) (Heparin Sodium,Porcine 5,000 Unit/Ml Vial) 5,000 unit SUBCUT Q12H [facility] Last Admin: 02/14/23 06:24 Dose: 5,000 unit Documented By: GREG Hydralazine HCl (Hydralazine Hcl 50 Mg Tablet) 50 mg PO TID [facility]; Protocol Last Admin: 02/14/23 08:26 Dose: 50 mg Documented By: LAURENCE Ceftriaxone Sodium 1 gm/ (Sodium Chloride) 50 mls @ 100 mls/hr IV Q24H [facility] Last Infusion: 02/13/23 18:20 Dose: 0 mls/hr Documented By: JENNY Sodium Chloride (Ns) 1,000 mls @ 100 mls/hr IVCONT .Q10H [facility] Last Admin: 02/14/23 10:46 Dose: 100 mls/hr Documented By: LAURENCE Methylprednisolone Sodium Succinate (Methylprednisolone Sod Succ 125 Mg/2 Ml Vial) 60 mg IVPUSH Q8H [facility] Last Admin: 02/14/23 10:46 Dose: 60 mg Documented By: LAURENCE Multivitamins/Vitamin C (Multivitamin Tablet) 1 tab PO DAILY [facility] Last Admin: 02/14/23 08:26 Dose: 1 tab Documented By: LAURENCE Nifedipine (Nifedipine Er 60 Mg Tab.Er.24) 60 mg PO BEDTIME [facility] Last Admin: 02/13/23 20:12 Dose: 60 mg Documented By: GREG Omeprazole (Omeprazole 40 Mg Capsule.) 40 mg PO DAILY@0630 [facility] Last Admin: 02/14/23 06:25 Dose: 40 mg Documented By: GREG Ondansetron HCl (Ondansetron Hcl 4 Mg/2 Ml Vial) 4 mg IVPUSH Q8H PRN PRN Reason: Nausea and Vomiting Pharmacy Consult (Consult Rx Perform Med Rec) 1 each MISCELLANE ONCE PRN PRN Reason: Consult order Senna (Sennosides 8.6 Mg Tablet) 17.2 mg PO BEDTIME PRN PRN Reason: Constipation Sodium Chloride (0.9 % Sodium Chloride Flush 3 Ml Syringe) 3 ml IVFLUSH QSHIFT [facility] Last Admin: 02/14/23 08:10 Dose: Not Given Documented By: LAURENCE Non-Admin Reason: IV Running Trazodone HCl (Trazodone Hcl 100 Mg Tablet) 100 mg PO BEDTIME [facility] Last Admin: 02/13/23 20:11 Dose: 50 mg Documented By: GREG Comments: pt states she only takes 50mg. Dr. Luong notified, requested order change Valsartan (Valsartan 160 Mg Tablet) 160 mg PO DAILY [facility] Last Admin: 02/14/23 08:26 Dose: 160 mg Documented By: LAURENCE Labs 02/14/23 06:55 02/14/23 06:55 Labs: Laboratory Results - last 24 hr 02/14/23 02/14/23 06:55 06:55 MCV 91.4 MCH 28.7 MCHC 31.4 RDW 15.6 Plt Count 282 MPV 8.6 L Absolute Nucleated RBC 0.000 Nucleated RBC % (auto) 0.0 Anion Gap 13 Estim Creat Clear Calc 34.5 Estimated GFR 53 Fasting Glucose 136 H Calcium 9.0 Total Bilirubin 0.1 AST 20 ALT 25 Alkaline Phosphatase 54 Total Protein 7.0 Albumin 2.5 L Microbiology Microbiology Results: Microbiology 02/11/23 13:28 Blood Culture - Preliminary Blood - Venous No growth after 48 hours. 02/11/23 13:28 Blood Culture - Preliminary Blood - Venous No growth after 48 hours. Assessment and Plan (1) Pneumonia: Status: Acute (2) (HFpEF) heart failure with preserved ejection fraction: Status: Acute (3) Acute hyponatremia: Status: Acute Plan 87-year-old female with a past medical history significant for CHF, COPD O2 dependent 2 L at home hypertension chronic hyponatremia presents with complaints of general weakness and fatigue for the past few days prior to admission. Patient also reported subjective fevers. Patient initially denied shortness of breath however was noted to be pursed lip breathing on arrival. ER workup demonstrated right-sided opacities thought to be consistent with infiltrate. 1. Community-acquired pneumonia - ceftriaxone/ azithromycin ( 4) - DuoNebs q.4 hours while awake - titrate O2 back to outpatient L flow - pulse dose steroids 2. HFpEF - do not believe patient in active failure - continue outpatient therapies including Coreg hydralazine nifedipine and Diovan 3. Hyponatremia - appears chronic in nature; question hypovolemic hyponatremia -follow renals/divalents - responded well to DC Lasix and gentle volume repletion. . . Continue the same 4. Hypertension - acceptable control on current therapies - adjust as indicated heparin subQ b.i.d. DNR/DNI. Requires ongoing hospitalization for IV antibiotics to treat community-acquired pneumonia. PT now recommending short-term rehab Time Spent With Patient Time: Total time managing care of this patient today ____ minutes. Quality Stroke Does the patient have a stroke diagnosis?: No VTE Prior VTE?: No VTE Risk Level:: Medical - moderate - high VTE Device Contraindication: N/A - Device Ordered VTE Drug Contraindication: N/A - Med Ordered
[2023-02-14] MEDS: Azithromycin 500 MG TABLET PO (18:05)
[2023-02-14] MEDS: cefTRIAXone sodium 1 GM in 0.9 % Sodium Chloride 50 ML IV (18:05)
[2023-02-14] MEDS: Ferrous Sulfate 324 MG TABLET.DR PO (18:05)
[2023-02-14] MEDS: Ascorbic Acid 500 MG TABLET PO (18:07)
[2023-02-14] MEDS: traZODone HCL 100 MG TABLET PO (20:47)
[2023-02-14] MEDS: Atorvastatin Calcium 20 MG TABLET PO (20:49)
[2023-02-14] MEDS: NIFEdipine ER 60 MG TAB.ER.24 PO (20:49)
[2023-02-15] VITALS (7 sets, daily range): BP systolic 137–154; BP diastolic 66–70; PULSE 67–81; RESP 18–20; TEMP 36.2–37.1; O2SAT 96–98; BMI 25.5
[2023-02-15] MEDS: methylPREDNISolone Sod Succ 125 MG/2 ML VIAL 60 MG IVPUSH ×2 (04:23→12:39)
[2023-02-15] MEDS: Omeprazole 40 MG CAPSULE.DR PO (04:24)
[2023-02-15] MEDS: 0.9 % Sodium Chloride 1,000 ML 100 ML IVCONT (07:29)
[2023-02-15] MEDS: Albuterol/Iprat 2.5/0.5MG 3 ML AMPUL.NEB INHALE ×3 (07:45→15:28)
[2023-02-15 07:53] LABS: Hematocrit 28.4 % (37.0-47.0); Hemoglobin 8.8 g/dl (12.0-16.0); Mean Corpuscular Hemoglobin 28.7 pg (27.0-33.0); Mean Corpuscular Volume 92.5 fL (80.0-98.0); Mean Platelet Volume 8.4 fL (9.4-12.3); Platelet Count 287 X10*3/uL (160-400); Red Blood Count 3.07 X10*6/uL (4.20-5.50); Red Cell Distribution Width 15.7 % (11.0-16.0); White Blood Count 9.4 X10*3/uL (4.8-10.8)
[2023-02-15 08:02] LABS: Alanine Aminotransferase 22 U/L (0-31); Albumin Level 2.5 g/dL (3.5-5.0); Alkaline Phosphatase 55 U/L (39-117); Anion Gap 11 (12-20); Aspartate Amino Transferase 18 U/L (5-31); Bilirubin Total 0.2 mg/dL (0.0-1.0); Blood Urea Nitrogen 33 mg/dL (9-16); Calcium 8.9 mg/dL (8.4-10.2); Carbon Dioxide 19 mmol/L (22-29); Chloride 110 mmol/L (96-108); Creatinine Clr Calc Pharmacy 40.1; Estimated Glomerular Filt Rate > 60; Glucose Fasting 98 mg/dL (60-99); Potassium 4.3 mmol/L (3.3-5.1); Sodium 136 mmol/L (135-145); Total Protein 6.7 g/dL (6.5-8.0)
[2023-02-15] MEDS: Heparin Sodium,Porcine 5,000 UNIT/ML VIAL 5000 UNIT SUBCUT (09:51)
[2023-02-15] MEDS: Valsartan 160 MG TABLET PO (09:51)
[2023-02-15] MEDS: Multivitamin TABLET 1 TAB PO (09:51)
[2023-02-15] MEDS: hydrALAZINE HCl 50 MG TABLET PO (09:51)
[2023-02-15] MEDS: Docusate Sodium 100 MG CAPSULE PO (09:51)
[2023-02-15] MEDS: 0.9 % Sodium Chloride Flush 3 ML SYRINGE IVFLUSH (09:52)
[2023-02-15] MEDS: carvediloL 3.125 MG TABLET PO (09:55)
--- NOTE | 2023-02-15 11:50 | P.DS_ITS ---
DS: Providers Provider Date of Service: 02/15/23 Date of admission: 02/11/23 18:37 Date of discharge: 02/15/23 Primary care physician: Uri Houston MD DS: Diagnosis Discharge Diagnosis (1) Pneumonia: Status: Acute (2) (HFpEF) heart failure with preserved ejection fraction: Status: Acute (3) Acute hyponatremia: Status: Acute DS: Summary Hospital Course Hospital Course: 87-year-old female with a past medical history significant for Congestive heart failure, COPD oxygen dependent on 2 L via nasal cannula, hypertension, hyponatremia, insomnia, subarachnoid bleed amongst others as noted below presented to the emergency department with complaints of generalized weakness ongoing for the past few days.? Patient also reports feeling fevers at home however did not recorded actual temperature.? Patient denies shortness of breath however she is observed with pursed lip breathing.? She reports that she has been instructed by her PCP to drink only 18 oz of water daily for the past 2 weeks.? She denies weight gain, increase or change in cough or increase in O2 demands at home.? Patient also reports that she feels a little confused at times . At current time, patient denies? Sick? or potential COVID-19 exposures/ contacts, chest or abdominal pain or urinary frequency/hesitation. Chest x-ray:1.? Increased radiopacities in the right midlung field may reflect atelectasis versus evolving infectious/inflammatory etiology. 2.? Stable bronchovascular prominence bilaterally. Initial laboratory results:?? WBC is 4.5, Hgb & Hct 9.1/28.6, unremarkable coagulation panel, VBG revealed pH 7.4 -remaining panel unremarkable.? CMP reveals Na 125, carbon dioxide 21, anion gap 10, BUN /creatinine 41/1.30, lactic acid 1-blood cultures obtained and pending. influenza a/ B, RSV and SARs COVID- 19 were negative. In the emergency department the above was performed and patient received? a total of 2 L NS, 650 mg p.o. acetaminophen,, 1 g ceftriaxone and 500 mg p.o. azithromycin Hospital Course Patient was admitted to the telemetry unit and continued on ceftriaxone and azithromycin. Patient has a history of CHF however this was not a factor in this admission. Her primary care was managing her sodium and had instructed her to decrease her oral intake as she was hyponatremic. A spot urine sodium was done which was found to be 36; given no signs of failure Lasix was DC and normal saline was done for volume repletion. On the day of discharge her sodium has normalized and she continues to be without signs of heart failure. At this point in time she has been recommended by Physical therapy for short-term rehab and will be discharged for same. She will complete a 10 day course of doxycycline to treat her Right-sided pneumonia. Time Spent with Patient Time attestation: Total time managing care of this patient today ____ minutes. Discharge coordination time: Greater than 30 minutes Quality: Safe Use of Opioids Does Pt have an Active Cancer Diagnosis on the Problem List?: No Quality: Stroke Does the patient have a stroke diagnosis?: No Physical Exam Vital Signs: Vital Signs: Last Vital Signs Temp 97.2 F 02/15/23 11:11 Pulse 77 02/15/23 11:20 Resp 18 02/15/23 11:20 BP 142/69 H 02/15/23 11:11 Pulse Ox 97 02/15/23 11:11 O2 Del Method Nasal Cannula 02/15/23 11:11 O2 Flow Rate 3 02/15/23 11:11 Oxygen Flow Rate 2 02/11/23 12:27 BMI result Body Mass Index 25.5 Const: Other: no acute distress Resp: Other: faint crackles bilateral bases otherwise clear throughout Cardio: Other: no S4; positive S1-S2; no S3 murmurs rubs or gallops GI: Other: soft nontender nondistended normoactive bowel sounds Neuro: Other: cranial nerves 2-12 grossly intact as tested. Motor is 5/5 all extremities. Sensation intact. Cognition Extrem: Other: no edema bilaterally DS: Data Data Completed and Pending Labs on day of discharge: Laboratory Results - last 24 hr 02/15/23 02/15/23 06:42 06:42 WBC 9.4 RBC 3.07 L Hgb 8.8 L Hct 28.4 L MCV 92.5 MCH 28.7 MCHC 31.0 RDW 15.7 Plt Count 287 MPV 8.4 L Absolute Nucleated RBC 0.000 Nucleated RBC % (auto) 0.0 Sodium 136 Potassium 4.3 Chloride 110 H Carbon Dioxide 19 L Anion Gap 11 L BUN 33 H Creatinine 0.86 Estim Creat Clear Calc 40.1 Estimated GFR > 60 Fasting Glucose 98 Calcium 8.9 Total Bilirubin 0.2 AST 18 ALT 22 Alkaline Phosphatase 55 Total Protein 6.7 Albumin 2.5 L Preliminary micro results at discharge 02/11/23 13:28 Blood Culture - Preliminary Blood - Venous No growth after 48 hours. 02/11/23 13:28 Blood Culture - Preliminary Blood - Venous No growth after 48 hours. Discharge Plan Discharge Anticipated Discharge Date/Time: 02/15/23 11:44 Patient Disposition: Xfer SNF Discharge Diagnosis: Community-acquired pneumonia Referrals: Uri Houston MD [Primary Care Provider] - 1 Week Discharge Medications: New ipratropium-albuterol 0.5 mg-3 mg(2.5 mg base)/3 mL Solution For Nebulization 3 ml inhalation RQID Qty: 270 0RF doxycycline hyclate 100 mg tablet 100 mg PO BID Qty: 20 0RF prednisone 10 mg tablet See Rx Instructions .Route .COMPLEX Qty: 45 0RF Rx Instructions: 10 mg orally; 5 tabs p.o. daily x3 days; 4 tabs p.o. daily x3 days; 3 tabs daily x3 days; 2 tabs daily x3 days; 1 tab daily x3 days Continued omeprazole 40 mg capsule,delayed release(DR/EC) 40 mg PO DAILY@0630 simvastatin 40 mg tablet 40 mg PO BEDTIME olmesartan 40 mg tablet 40 mg PO DAILY multivitamin Tablet 1 tab PO DAILY ferrous sulfate 325 mg (65 mg iron) Tablet 325 mg PO DAILY@1800 cholecalciferol (vitamin D3) 50 mcg (2,000 unit) Tablet 50 mcg PO DAILY@1800 ascorbic acid (vitamin C) 500 mg tablet 500 mg PO DAILY@1800 docusate sodium [Colace] 100 mg capsule 100 mg PO BID carvedilol 3.125 mg tablet 3.125 mg PO DAILY@0900,1800 Protocol: Hold for SBP/HR < HOLD for SBP < : 90 HOLD for HR < : 60 trazodone 50 mg tablet 100 mg PO BEDTIME Rx Instructions: Take 1 hour before sleep nifedipine 60 mg tablet extended release 60 mg PO BEDTIME hydralazine 50 mg tablet 50 mg PO TID Trelegy Ellipta 100-62.5-25 mcg blister with device 1 inh inhalation DAILY 30 Days Qty: 60 11RF Discontinued furosemide 20 mg tablet 20 mg PO MOTUWEFRSA@0900 Rx Instructions: 20 mg orally 5 days per week only. Discharge Orders: Discharge Order (Routine); Ordered 02/15/23 Ordered By: Ori Goodman Diet: Advance to usual diet Activity on Discharge: As tolerated Stand Alone Forms: Patient Portal Discharge page Care Plan Goals: Add doxycycline 100 mg twice daily for 10 days. Health Concerns: Continue all meds as outlined in discharge summary Plan of Treatment: Plan of treatment as per receiving facility Assessment: See discharge summary
--- NOTE | 2023-02-15 12:03 | MHC.CM.PN ---
Patient has been medically cleared for dc to SNF/STR today. [facility] at 2:30 PM, via [facility]. CM met with Patient, her , and her Daughter at bedside, addressed the IMM with Patient (providing her with the original and placing a copy on the chart), and assisted her with the completion of a HCP.
[2023-02-17 14:03] LABS: Vitamin D 25-OH, D2 <4 ng/mL; Vitamin D 25-OH, D3 24 ng/mL; Vitamin D 25-OH, Total 24 ng/mL (30-100)
== END 2023-02-15 15:45 | disposition skilled nursing facility (03) | DRG 193 ==
LOC: HO.ED 13:00 → HO.EDOVER 18:49 → HO.IMC 02-12 07:39
PROVIDERS: Physician Assistant; Admitting Provider Registered Nurse; Emergency Provider Emergency Medicine Emergency Medical Services; PCP Internal Medicine; Visit Provider Hospitalist
DX: J18.9 Pneumonia, unspecified organism (principal); J96.21 Acute and chronic respiratory failure with hypoxia; J44.0 Chronic obstructive pulmonary disease with (acute) lower respiratory infection; J44.1 Chronic obstructive pulmonary disease with (acute) exacerbation; I50.32 Chronic diastolic (congestive) heart failure; E87.1 Hypo-osmolality and hyponatremia; Z66 Do not resuscitate; I11.0 Hypertensive heart disease with heart failure; Z99.81 Dependence on supplemental oxygen; E78.00 Pure hypercholesterolemia, unspecified; Z20.822 Contact with and (suspected) exposure to COVID-19; Z87.891 Personal history of nicotine dependence; Z79.51 Long term (current) use of inhaled steroids; Z79.899 Other long term (current) drug therapy
CPT/HCPCS: 0241U; 36415; 71046; 80048; 80053; 81001; 82306; 82803; 83605; 83690; 83735; 83880; 83930; 84300; 84484; 85025; 85027; 85610; 85730; 87040; 93005; 94640; 97116; 97162; 97530; 99285; J0696; J1643; J2930

== ENCOUNTER → 2023-02-11 12:27 | Outpatient (BNV) | payer MEDICARE, OTHER, SELFPAY | PROVIDERS: Emergency Provider Emergency Medicine Emergency Medical Services; PCP Internal Medicine; Visit Provider Internal Medicine Cardiovascular Disease | DX: R07.9 Chest pain, unspecified (principal) | CPT/HCPCS: 93010 ==

== ENCOUNTER → 2023-02-11 18:37 | Outpatient (BNV) | payer MEDICARE, OTHER, SELFPAY | PROVIDERS: Admitting Provider Registered Nurse; Emergency Provider Emergency Medicine Emergency Medical Services; PCP Internal Medicine; Visit Provider Registered Nurse | DX: J18.9 Pneumonia, unspecified organism (principal); I50.30 Unspecified diastolic (congestive) heart failure; E87.1 Hypo-osmolality and hyponatremia | CPT/HCPCS: 99223; 99233; 99239 ==

== ENCOUNTER 2023-03-06 13:42 | Outpatient (AMB) | payer MEDICARE, OTHER, SELFPAY ==
--- NOTE | 2023-03-06 13:48 | MHC.OFFVIS ---
Intake Vital Signs 03/06/23 13:49 Height 5 ft 1 in Weight 110 lb 3.698 oz BMI 20.8 BP 108/54 L Blood Pressure Location Lt brachial Position Sitting Pulse 73 Pulse Oximetry (%) 96 Oxygen Delivery Method Nasal Cannula Oxygen Flow Rate 2 Intake Visit Reasons: 6 mth f/up Intake Note: 6 month follow up. Heeler Required: No Accompanied by: Spouse Allergies cimetidine [From TAGAMET] Allergy (Mild, Verified 03/06/23 13:51) HEADACHES lisinopril [LISINOPRIL] Allergy (Mild, Verified 03/06/23 13:51) COUGH phenytoin [Dilantin] Allergy (Unknown, Verified 03/06/23 13:51) rash hydrochlorothiazide Adverse Reaction (Verified 03/06/23 13:51) Shortness of Breath Medication List - Last Reconciled 03/06/23 by Andry Morse MD ascorbic acid (vitamin C) 500 mg PO DAILY@1800 carvedilol 3.125 mg See Protocol PO DAILY@0900,1800 cholecalciferol (vitamin D3) 50 mcg PO DAILY@1800 docusate sodium (Colace) 100 mg PO BID ferrous sulfate 325 mg PO DAILY@1800 [id number] 100-62.5-25 mcg (Trelegy Ellipta) 1 inh inhalation DAILY 30 days hydralazine 50 mg PO TID multivitamin 1 tab PO DAILY nifedipine ER 60 mg PO BEDTIME olmesartan 40 mg PO DAILY omeprazole 40 mg PO DAILY@0630 simvastatin 40 mg PO BEDTIME trazodone 100 mg PO BEDTIME HPI HPI Comments History of Present Illness Details Pleasant 87-year-old female with background diastolic heart failure for follow-up. She is on furosemide 20 mg 5 times a week. Previously was doing well from heart failure point of view. She returns now and has been short of breath. Unfortunately had pneumonia and subsequent to that continued to have shortness of breath and subsequently was put on home oxygen. Her oxygen demand is increasing and she is using oxygen all the time now. She is following closely with Dr. Alfaro. From heart failure point of view she has been stable. She has been taking Lasix as before and has no significant nighttime symptoms. She said she is using trazodone now and sleeping better. 03/06/2023: She is here for follow-up. She just left Hospital after being diagnosed with pneumonia. She said she spent some time in rehab which she lost lot of weight because she did not like the food. She was also not given any ensure or supplements there. She was taken off the Lasix at discharge from the hospital because of hyponatremia. Clinically does not has any significant dyspnea or orthopnea. No peripheral edema. She continues to be on supplemental oxygen due to her COPD. [facility] Medical History CHF (congestive heart failure) COPD (chronic obstructive pulmonary disease) GERD (gastroesophageal reflux disease) High cholesterol History of colon cancer (~2002) HTN (hypertension) Insomnia Multinodular thyroid Osteopenia (~2001) Rheumatic fever Subarachnoid bleed Surgical History History of appendectomy History of bone marrow biopsy History of colonoscopy History of hemicolectomy History of lung biopsy History of tonsillectomy S/P thyroid biopsy Family History Father Colon cancer Paternal Aunt Colon cancer Sister Breast cancer Social History Household Members: Spouse Housing: House Are you a primary healthcare network pricing consultant to a significant other at home: No Do you presently have visiting nurse or other home services: No Alcohol intake: never Patient Tobacco Use Status: Former Tobacco user Quit Date: 1979 Years Smoked: 20 +/- Advance Directives Date on File: 08/20/22 service: No Current occupational status: retired Review of Systems Const Denies weakness ENT Denies dizziness Card Denies chest pain, Denies chest pain with activity, Denies syncope, Denies rapid heart rate, Denies pedal edema, Denies edema, Denies leg edema, Denies lightheadedness, Denies palpitations, Denies dyspnea, Denies dyspnea on exertion and Denies orthopnea Resp Denies cough, Denies dyspnea and Denies dyspnea on exertion GI Denies hematochezia and Denies change in stool character Musc Denies abnormal gait, Denies muscle cramps, Denies muscle weakness, Denies numbness, Denies radiating pain into limb and Denies tingling Neuro Denies abnormal gait, Denies dizziness, Denies syncope, Denies numbness, Denies tingling and Denies weakness Endo Denies palpitations Physical Exam Vital Signs: Last Vital Signs Pulse 73 03/06/23 13:49 BP 108/54 L 03/06/23 13:49 Pulse Ox 96 03/06/23 13:49 Oxygen Delivery Method Nasal Cannula 03/06/23 13:49 Oxygen Flow Rate 2 03/06/23 13:49 BMI result Body Mass Index 20.8 GENERAL APPEARANCE: in no acute distress, pleasant. NECK: no carotid bruit, no jugular venous distention. SKIN: no suspicious lesions, warm and dry. HEART: no murmurs, regular rate and rhythm. LUNGS: clear to auscultation bilaterally. ABDOMEN: soft, nontender. EXTREMITIES: no edema. PERIPHERAL PULSES: equal. NEUROLOGIC: No gross deficits, AAO X 3 Assessment & Plan Assessment & Plan (1) CHF (congestive heart failure): Code(s): I50.9 - Heart failure, unspecified (2) HTN (hypertension): Code(s): I10 - Essential (primary) hypertension Plan Pleasant 87 year female who is here for follow-up. She has known history of diastolic heart failure and was previously being treated with 5 times a week Lasix 20 mg per day. Recent admission to the hospital with pneumonia and was noticed to be hyponatremic and Lasix was stopped. Subsequent to that she has been in rehab facility where she has lost more weight despite being off diuretics. Clinically looks euvolemic at this point. I think Lasix can be held for now. She has a scale at home and I have advised her to check her weight daily. If she started seeing a trend of weight gain over 1-2 lb per day then we may have to put her back on furosemide 20 mg. She on supplemental oxygen for underlying COPD. Blood pressure control is reasonable. She is taking carvedilol, nifedipine and olmesartan at this point. Blood pressure control is good. She will follow-up with us in 3 months. She will call us if she started gaining weight. Thank you for allowing me to participate in the care of your patient. Please feel free to contact me if you have any questions. Medications: Discontinued furosemide 20 mg orally 5 days per week only. 60 tabs 3RF nifedipine ER 60 mg PO DAILY 90 tabs 3RF trazodone Take 1 hour before sleep 100 mg (2 x 50 mg) PO BEDTIME 30 days 60 tabs 6RF prednisone orally daily; 4 tabs daily x 5 days, 3 tabs daily x 5 days, 2 tabs daily x 5 days, 1 tab daily x 5 days 30 days 50 tabs 0RF Coding Level of Care Code Est Pt Level 4 (78753) Diagnoses CHF (congestive heart failure) I50.9 HTN (hypertension) I10
[2023-03-06 13:49] VITALS: BP 108/54; PULSE 73; O2SAT 96; BMI 20.8
== END 2023-03-06 14:13 | disposition home or self-care (01) ==
PROVIDERS: PCP Internal Medicine; Referring Provider Internal Medicine; Visit Provider Internal Medicine Cardiovascular Disease
DX: I50.9 Heart failure, unspecified (principal); I10 Essential (primary) hypertension
CPT/HCPCS: 99214

== ENCOUNTER → 2023-03-06 13:42 | Outpatient (BNVA) | payer MEDICARE, OTHER, SELFPAY | PROVIDERS: PCP Internal Medicine; Referring Provider Internal Medicine; Visit Provider Internal Medicine Cardiovascular Disease | DX: I11.0 Hypertensive heart disease with heart failure (principal); I50.9 Heart failure, unspecified | CPT/HCPCS: 99212 ==

== ENCOUNTER 2023-03-21 07:36 | Outpatient (REF) | payer MEDICARE, OTHER, SELFPAY ==
--- NOTE | ~2023-03-21 | US_ITS ---
Ultrasound-guided biopsy of the left thyroid nodule INDICATIONS: 1.6 x 1.65 x 1.8 cm complex nodule in the lower pole of the left lobe of the thyroid gland After informed and written consent was obtained an official timeout was performed immediately prior to the procedure. PROCEDURE: The skin was prepped and draped in usual fashion. 1% Xylocaine was used for local anesthetic. Under ultrasound guidance 6 needle aspirates were obtained utilizing a 25-gauge needle. The specimens were analyzed by the pathology department. US/US biopsy thyroid IMPRESSION: Ultrasound-guided biopsy of the complex nodule in the left lobe of the thyroid gland
[2023-03-21] MEDS: Lidocaine HCl 1 % MPF 5 ML VIAL SUBCUT (10:22)
== END 2023-03-21 07:37 | disposition home or self-care (01) ==
LOC: HO.US 07:36
PROVIDERS: PCP Internal Medicine; Visit Provider Internal Medicine
DX: E04.2 Nontoxic multinodular goiter (principal)
CPT/HCPCS: 10005; 88172; 88173; 88177; 88305

== ENCOUNTER → 2023-03-21 07:36 | Outpatient (BNV) | payer MEDICARE, OTHER, SELFPAY | PROVIDERS: PCP Internal Medicine; Visit Provider Radiology Vascular & Interventional Radiology | DX: E04.2 Nontoxic multinodular goiter (principal) | CPT/HCPCS: 10005 ==

== ENCOUNTER 2023-03-26 12:55 | Outpatient (AMB) | payer MEDICARE, OTHER, SELFPAY ==
[2023-03-26 13:09] VITALS: PULSE 76; O2SAT 95; BMI 20.8
--- NOTE | 2023-03-26 13:09 | MHC.OFFVIS ---
Intake Vital Signs 03/26/23 13:09 Height 5 ft 1 in Weight 110 lb 3.698 oz BMI 20.8 Pulse 76 Pulse Source Pulse Oximeter Pulse Oximetry (%) 95 Oxygen Delivery Method Room Air Comment 2 Liters Oxygen([employer]) Intake Visit Reasons: copd [place]ar Alarm Inspector Required: No Allergies cimetidine [From TAGAMET] Allergy (Mild, Verified 03/26/23 13:16) HEADACHES lisinopril [LISINOPRIL] Allergy (Mild, Verified 03/26/23 13:16) COUGH phenytoin [Dilantin] Allergy (Unknown, Verified 03/26/23 13:16) rash hydrochlorothiazide Adverse Reaction (Verified 03/26/23 13:16) Shortness of Breath HPI HPI Comments History of Present Illness Details The patient is an 88-year-old woman with a known history of colon cancer status post resection many years ago, chronic anemia currently on Procrit and congestive heart failure. She had been complaining of worsening shortness of breath. Further workup included a chest x-ray demonstrating some interstitial abnormalities. Therefore she was referred to undergo a CT scan of the chest. The CT scan demonstrated some nodular densities in therefore she was referred to Pulmonary. I personally reviewed the CT scan myself. She does have evidence of bronchitis in addition to this elongated tubular density in the right middle lobe area. In the ED may be within the airway itself. The patient also did have a CT scan of the chest back in 2019 which I also personally reviewed. Unfortunately, technique was suboptimal and there was a lot of motion artifact. But it appears that the nodular density may have been there she is unclear as far as the size in the size. We talked about other potential etiologies that this could be such as mucous plugging smoldering infections. The patient be provided with an Acapella valve and she is going to work on chest physical therapy. Will try to also get a sputum culture for AFB to rule out non tuberculosis mycobacterial infections that can cause Nodular densities in the lungs. The patient continue perform her chest PT and will plan to repeat the CT scan in March with the hope that the nodular density has subsided. 05/01/2022 the patient is here for a pulmonary follow-up visit. The patient has been complaining of worsening dyspnea on exertion. Moderate severity. the patient also complains of shortness of breath even at rest although worse with activity. This is limiting her activities of daily living. Back in February he was evaluated in the ER with chest discomfort. There, she did undergo a CTA that ruled out pulmonary emboli. However, again we were able to visualize the right sided pulmonary nodule. Difficult to compared to her previous 1 from November 2021 although it looks slightly larger in size. Therefore based on the size greater than a cm I will go ahead and order a PET scan. The patient is also status post a thyroid biopsy which was consistent with normal thyroid parenchyma. Although as far as the accuracy of the biopsies she will follow up with Endocrinology. Patient also has some evidence of emphysema on the CT scan. Because of her shortness of breath we did taken for 6 minutes walk test. The patient in the qualifies for oxygen supplementation with activity. She did better with the continues low then the conserving valve. Will go ahead and start her on oxygen at this time. at least this will provide her some relief while waiting for her other result. We will also maximize her respiratory therapy By placing her on Trelegy. 05/28/2022 the patient is here for a pulmonary follow-up visit. Overall the patient continues to have dyspnea on exertion although a little better. She is responding well to the oxygen. Although is very hard for her to carry the Continues oxygen because the tanks are too heavy and they. We did undergo a 6 minute oximetry test in the office. We did use the portable oxygen concentrator. The patient did better and she was able to maintain a pulse ox of 92% 3 L pulse. Therefore will try to get her small conserving device in order for her to have a easier time carrying it. Will submit a prescription to her [employer] company. Patient also underwent a PET scan to further address the right lower lobe pulmonary nodule. The PET scan did demonstrate an elevated FDG activity of 3.1 and appears to be a solitary PET avid nodular density which is concerning for malignancy. The patient is already on oxygen and explained to her that removing any lung tissue to remove the nodular density will resulting worsening gas exchange. Therefore the best option would be to biopsy this nodular density to assess for any the evidence of malignancy. If there is evidence of malignancy we can discuss the case during tumor conference but the patient may be a good candidate for stereotactic radiation in addition to other potential chemotherapeutic or immune mediated therapies. But 1st will request a biopsy in order to better understand this process. 06/21/2022 the patient is here for a pulmonary follow-up visit. He was supposed to follow up with the biopsy results although she has not had a biopsy just yet. She is scheduled to have a next week. Therefore, once I have the biopsy results I will call her on the phone to give her the results. We did talk about the procedure. She needs to have blood work prior to the procedure which she will have today. In addition to that she will be NPO after midnight on the day of the procedure. Her blood pressures have been high in therefore I explained to the patient that she should continue taking her medications with a sip of water to minimize further elevation of her blood pressure on the day of the procedure. She continues use the oxygen with good effect. She continues use her respiratory therapy, Trelegy with good effect as well. She has not required her rescue inhaler. 08/22/2022 the patient is here for pulmonary follow-up visit. She is still on a hard time with the issue with the biopsy. She did undergo the biopsy and demonstrated no evidence of any malignancy which is reassuring. Although it did have some atypical cells suggestive of reactive macrophages. Although malignancy cannot completely be ruled out with CT guided biopsies. The only definitive way of doing it will be with surgical biopsy. Unfortunately, her PFTs demonstrate a severe decrease in the DLCO in any kind of lung resection would be difficult for the patient to tolerate. She is already on oxygen. Clinically the patient is doing okay from a breathing standpoint. She continues her respiratory therapy. I do agree that repeating her CT scan in 6 weeks will be important to make sure that we follow this pulmonary nodule that was positive in her PET scan. If the nodules any larger and is progressing then we will discuss considering another CT-guided biopsy or talking to the radiation oncologist regarding possibility of stereotactic radiation. The patient is also having hard time sleeping. We did talk about different agents to use. I do believe that trazodone will be effective in helping her sleep. She will try for now. 10/24/2022 the patient is here for a pulmonary follow-up visit. The patient had a recent CT scan of the chest to be which we personally reviewed. It appears that the right-sided pulmonary nodule is enlarging from 1.7 to 1.9 cm in size. This is concerning. We know that this is an avid nodule. At least based on the CT scan from April it was a solitary nodule without any evidence of any spread. Still because her lung capacity she cannot tolerate surgery. Her initial biopsy was nondiagnostic. She either needs to have a repeat biopsy undergo stereotactic radiation without a biopsy. Will go ahead and plan to perform a biopsy in addition to that will% or a tumor conference to see people feel compelled about avoiding biopsy in going right to stereotactic radiation. She does have an oncologist to follow her closely so therefore will have her involving that discussion as well. From a respiratory status the patient is doing well on the oxygen. She does have very limited pulmonary reserve. 01/21/2023 the patient is here for pulmonary follow-up visit. The patient did complete her stereotactic radiation for her pulmonary nodule. She did tolerated therapy well. Although she has been having increasing shortness of breath. Apparently with activity. Moderate severity. She is using her oxygen. Patient is coughing more but denies any significant chest congestion. On examination she does have additional crackles on that left hemithorax. Therefore she is likely developing some radiation pneumonitis in that area. The patient is agreeable in taking a small dose of prednisone to try to minimize the inflammatory changes that occurs after having such therapy. 03/26/2023 the patient is here for pulmonary follow-up visit. Since we last spoke she developed worsening shortness of breath and weakness. She was evaluated at the [facility] ER where she had a chest x-ray demonstrating increased hazy opacity in the right mid lung zone. The patient was started on antibiotics. She was also given additional diuresis and prednisone. Her oxygen requirements improved and the patient was discharged. Now she is feeling better. She still recovering still feels tired. Her respiratory exam actually sounds better. no further evidence of crackles. She already completed the prednisone. The patient also followed up with Cardiology. She is continued on diuresis. She is monitoring her daily weight. She will undergo a chest x-ray today to follow-up for recent pneumonia. She will also need additional imaging studies follow-up with the pulmonary nodule that is status post stereotactic radiation. [facility] Medical History CHF (congestive heart failure) COPD (chronic obstructive pulmonary disease) GERD (gastroesophageal reflux disease) High cholesterol History of colon cancer (~2002) HTN (hypertension) Insomnia Multinodular thyroid Osteopenia (~2001) Rheumatic fever Subarachnoid bleed Surgical History History of appendectomy History of bone marrow biopsy History of colonoscopy History of hemicolectomy History of lung biopsy History of tonsillectomy S/P thyroid biopsy Family History Father Colon cancer Paternal Aunt Colon cancer Sister Breast cancer Social History Household Members: Spouse Housing: House Are you a primary home health aide caregiver to a significant other at home: No Do you presently have visiting nurse or other home services: No Alcohol intake: never Patient Tobacco Use Status: Former Tobacco user Quit Date: 1979 Smoked: 20 +/- Advance Directives Date on File: 08/20/22 service: No Current occupational status: retired Review of Systems Const Reports difficulty sleeping, Denies excessive sweating, Denies fatigue, Denies headache(s), Denies weight gain and Denies weight loss Eyes Denies blurry vision and Denies diplopia ENT Denies change in voice, Denies dysphagia, Denies headache(s) and Denies hoarseness Card Denies chest pain, Denies irregular heart rhythm, Reports dyspnea on exertion and Reports other Resp Reports cough and Reports dyspnea on exertion GI Denies abdominal pain, Denies change in bowel habits, Denies dysphagia, Denies diarrhea and Denies nausea Musc Denies myalgias, Denies muscle cramps, Denies numbness and Denies tingling Skin/Breast Denies hirsutism and Denies alopecia Neuro Denies headache(s), Denies numbness and Denies tingling Psych Denies anxiety and Denies depression Endo Denies cold intolerance, Denies excessive sweating, Denies fatigue and Denies heat intolerance Masoud/Lymph Denies easy bruising Physical Exam Vital Signs: Last Vital Signs Pulse 76 03/26/23 13:09 Pulse Ox 95 03/26/23 13:09 Oxygen Delivery Method Room Air 03/26/23 13:09 BMI result Body Mass Index 20.8 Const General: alert Orientation/consciousness: patient oriented x3 HEENT Head: Yes normocephalic Eyes General: appearance normal, both eyes and all related structures Neck Neck: Yes normal visual inspection Resp Effort & Inspection: normal respiratory effort and not labored Auscultation: no crackles, no rales, no rhonchi, no wheezes and diminished lung sounds Cardio Rate: regular rate Rhythm: regular rhythm Heart sounds: S1 normal heart sound present and S2 normal heart sound present GI Auscultation: normal bowel sounds Skin General skin exam: no rashes or lesions noted Neuro General: patient oriented x3 Extrem General: Yes normal to inspection and No edema Assessment & Plan Assessment & Plan (1) Pneumonia: Code(s): J18.9 - Pneumonia, unspecified organism (2) Chronic bronchitis: Code(s): J42 - Unspecified chronic bronchitis (3) Shortness of breath: Code(s): R06.02 - Shortness of breath (4) COPD (chronic obstructive pulmonary disease): Code(s): J44.9 - Chronic obstructive pulmonary disease, unspecified Qualifiers: COPD type: unspecified COPD Qualified Code(s): J44.9 - Chronic obstructive pulmonary disease, unspecified (5) Insomnia: Code(s): G47.00 - Insomnia, unspecified (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 B cylinders with 3l/pulse conserving valve continue Trelegy inhaler Trazadone for sleep repeat CXR diuresis as tolerated F/U 3-4 months Orders: Orders XR chest 2V Today J18.9 - Pneumonia, unspecified organism Medications: Discontinued furosemide 20 mg orally 5 days per week only. 60 tabs 3RF nifedipine ER 60 mg PO DAILY 90 tabs 3RF trazodone Take 1 hour before sleep 100 mg (2 x 50 mg) PO BEDTIME 30 days 60 tabs 6RF prednisone orally daily; 4 tabs daily x 5 days, 3 tabs daily x 5 days, 2 tabs daily x 5 days, 1 tab daily x 5 days 30 days 50 tabs 0RF Coding Level of Care Code Est Pt Level 4 (16133) Diagnoses Pneumonia J18.9 Chronic bronchitis J42 Shortness of breath R06.02 COPD (chronic obstructive pulmonary disease) J44.9 COPD type: unspecified COPD Insomnia G47.00 Radiation pneumonitis J70.0 Time Spent (min) 18
== END 2023-03-26 13:33 | disposition home or self-care (01) ==
PROVIDERS: PCP Internal Medicine; Visit Provider Hospitalist
DX: J18.9 Pneumonia, unspecified organism (principal); J44.9 Chronic obstructive pulmonary disease, unspecified; G47.00 Insomnia, unspecified; J70.0 Acute pulmonary manifestations due to radiation
CPT/HCPCS: 99214

== ENCOUNTER 2023-03-26 12:55 | Outpatient (REF) | payer MEDICARE, OTHER, SELFPAY ==
--- NOTE | ~2023-03-26 | XR_ITS ---
EXAMINATION: XR CHEST CLINICAL INFORMATION: Pneumonia, follow-up COMPARISON: Chest x-ray from 02/11/[address] from 09/06/2022 TECHNIQUE: 2 views of the chest were obtained. FINDINGS: Heart is normal in size. Atherosclerotic calcifications in the aortic arch. Chronic emphysematous and fibrotic changes seen in the lung parenchyma. There is linear scarring is seen within the right midlung field. There is improved aeration in the right lung compared to the prior exam. No new developing airspace opacities. XR/XR chest 2V IMPRESSION: Improved aeration in the right lung. No new airspace opacities.
== END 2023-03-26 12:56 | disposition home or self-care (01) ==
LOC: HO.XRAY 12:55
PROVIDERS: PCP Internal Medicine; Visit Provider Hospitalist
DX: J18.9 Pneumonia, unspecified organism (principal); R06.02 Shortness of breath; J44.9 Chronic obstructive pulmonary disease, unspecified; G47.00 Insomnia, unspecified
CPT/HCPCS: 71046; 99212

== ENCOUNTER 2023-06-19 14:24 | Outpatient (AMB) | payer MEDICARE, OTHER, SELFPAY ==
[2023-06-19 14:26] VITALS: BP 160/70; PULSE 64; BMI 22.5
--- NOTE | 2023-06-19 14:26 | A.OFFVIS_ITS ---
Intake Vital Signs 06/19/23 14:26 Height 5 ft 1 in Weight 119 lb 0.794 oz BMI 22.5 BP 160/70 H Blood Pressure Location Lt brachial Position Sitting Pulse 64 Pulse Source Pulse Oximeter Intake Visit Reasons: 3 mth f/up Intake Note: 3 month f/up patients feels good. 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 Accompanied by: Self / Same As Patient Allergies cimetidine [From TAGAMET] Allergy (Mild, Verified 06/19/23 14:29) HEADACHES lisinopril [LISINOPRIL] Allergy (Mild, Verified 06/19/23 14:29) COUGH phenytoin [Dilantin] Allergy (Unknown, Verified 06/19/23 14:29) rash hydrochlorothiazide Adverse Reaction (Verified 06/19/23 14:29) Shortness of Breath Medication List - Last Reconciled 06/19/23 by Andry Morse MD ascorbic acid (vitamin C) 500 mg PO DAILY@1800 carvedilol 3.125 mg See Protocol PO DAILY@0900,1800 cholecalciferol (vitamin D3) 50 mcg PO DAILY@1800 docusate sodium (Colace) 100 mg PO BID ferrous sulfate 325 mg PO DAILY@1800 [id number] 100-62.5-25 mcg (Trelegy Ellipta) 1 ea inhalation DAILY hydralazine 50 mg PO TID multivitamin 1 tab PO DAILY nifedipine ER 60 mg PO BEDTIME olmesartan 40 mg PO DAILY omeprazole 40 mg PO DAILY@0630 Oxygen Home Use As directed simvastatin 40 mg PO BEDTIME trazodone 100 mg (2 x 50 mg) PO BEDTIME 30 days HPI HPI Comments History of Present Illness Details Pleasant 88-year-old female with background diastolic heart failure for follow-up. She is on furosemide 20 mg 5 times a week. Previously was doing well from heart failure point of view. She returns now and has been short of breath. Unfortunately had pneumonia and subsequent to that continued to have shortness of breath and subsequently was put on home oxygen. Her oxygen demand is increasing and she is using oxygen all the time now. She is following closely with Dr. Alfaro. From heart failure point of view she has been stable. She has been taking Lasix as before and has no significant nighttime symptoms. She said she is using trazodone now and sleeping better. 03/06/2023: She is here for follow-up. S he just left Hospital after being diagnosed with pneumonia. She said she spent some time in rehab which she lost lot of weight because she did not like the food. She was also not given any ensure or supplements there. She was taken off the Lasix at discharge from the hospital because of hyponatremia. Clinically does not has any significant dyspnea or orthopnea. No peripheral edema. She continues to be on supplemental oxygen due to her COPD. 06/19/2023: She returns for follow-up. She appears to be more frail and is on supplemental oxygen. She is complaining of left-sided lower chest pain. She is saying that she has been coughing more and has been bringing up some clear phlegm. This is more at nighttime. No fevers or chills. She said she reach out to Dr. Alfaro office to get a chest x-ray but she has not heard back about that. Her blood pressure in the office elevated. Her home blood pressure readings are completely normal. Manual blood pressure by myself was 180/80. She has been taking medications regularly. [facility] Medical History CHF (congestive heart failure) COPD (chronic obstructive pulmonary disease) GERD (gastroesophageal reflux disease) High cholesterol History of colon cancer (~2002) HTN (hypertension) Insomnia Multinodular thyroid Osteopenia (~2001) Rheumatic fever Subarachnoid bleed Surgical History History of bone marrow biopsy History of colonoscopy History of hemicolectomy History of tonsillectomy S/P thyroid biopsy History of lung biopsy History of appendectomy Family History Father Colon cancer Paternal Aunt Colon cancer Sister Breast cancer Social History Household Members: Spouse Housing: House Are you a primary palliative care specialist to a significant other at home: No Do you presently have visiting nurse or other home services: No Alcohol intake: never Comment: sleeping Patient Tobacco Use Status: Former Tobacco user Quit Date: 1979 Years Smoked: 20 +/- Advance Directives Date on File: 08/20/22 service: No Current occupational status: retired Review of Systems Const Reports chills, Reports fatigue, Reports fever(s), Reports frequent falls, Reports weakness, Reports weight gain and Reports weight loss ENT Reports dizziness Card Reports chest pain, Reports leg edema, Reports lightheadedness, Reports palpitations, Reports dyspnea and Reports dyspnea on exertion Resp Reports cough, Reports dyspnea and Reports dyspnea on exertion GI Reports hematochezia Musc Reports abnormal gait, Reports muscle weakness, Reports numbness, Reports radiating pain into limb and Reports tingling Neuro Reports abnormal gait, Reports dizziness, Reports frequent falls, Reports numbness, Reports tingling and Reports weakness Endo Reports fatigue and Reports palpitations Physical Exam Vital Signs: Last Vital Signs Pulse 64 06/19/23 14:26 BP 160/70 H 06/19/23 14:26 BMI result Body Mass Index 22.5 GENERAL APPEARANCE: in no acute distress, on supplemental oxygen. NECK: no carotid bruit, no jugular venous distention. SKIN: no suspicious lesions, warm and dry. HEART: no murmurs, regular rate and rhythm. LUNGS: clear to auscultation bilaterally. ABDOMEN: soft, nontender. EXTREMITIES: no edema. PERIPHERAL PULSES: equal. NEUROLOGIC: No gross deficits, AAO X 3 Assessment & Plan Assessment & Plan (1) HTN (hypertension): Code(s): I10 - Essential (primary) hypertension (2) CHF (congestive heart failure): Code(s): I50.9 - Heart failure, unspecified Plan Pleasant 88 year female with chronic diastolic heart failure. Clinically not in heart failure. Blood pressure is quite elevated though. She has been taking olmesartan 40 mg daily, nifedipine 60 mg daily, hydralazine 50 mg 3 times a day and carvedilol 3.125 mg twice a day. Increase nifedipine to 60 mg twice a day. Will bring her back in 2 weeks for blood pressure check. Otherwise she will see us in 4 months. I am requesting a chest x-ray to rule out any pneumonia as she has been coughing and has been getting some chest pains too. Thank you for allowing me to participate in the care of your patient. Please feel free to contact me if you have any questions. Orders: Orders XR chest 2V Today J44.9 - Chronic obstructive pulmonary disease, unspecified Medications: New nifedipine ER 60 mg PO BID 120 tabs 4RF Coding Level of Care Code Est Pt Level 3 (38461) Diagnoses HTN (hypertension) I10 CHF (congestive heart failure) I50.9
== END 2023-06-19 14:54 | disposition home or self-care (01) ==
PROVIDERS: PCP Internal Medicine; Visit Provider Internal Medicine Cardiovascular Disease
DX: I10 Essential (primary) hypertension (principal); I50.9 Heart failure, unspecified
CPT/HCPCS: 99213

== ENCOUNTER 2023-06-19 14:24 | Outpatient (REF) | payer MEDICARE, OTHER, SELFPAY ==
--- NOTE | ~2023-06-19 | XR_ITS ---
EXAMINATION: XR CHEST CLINICAL INFORMATION: Chest pain COMPARISON: CT scan from 09/06/2022 and chest radiograph from 02/11/2023, 03/26/2023 TECHNIQUE: 2 views FINDINGS: There is no significant interval change in appearance of patchy opacification of the right lower lobe most likely due to scarring or nodularity. Correlate with CT scan. There is no pneumothorax or obvious lung nodules. Cardiomediastinal silhouette is normal XR/XR chest 2V IMPRESSION: Persistent right lower lobe opacity correlate with CT scan
== END 2023-06-19 14:25 | disposition home or self-care (01) ==
LOC: HO.XRAY 14:24
PROVIDERS: PCP Internal Medicine; Visit Provider Internal Medicine Cardiovascular Disease
DX: J44.9 Chronic obstructive pulmonary disease, unspecified (principal); I11.0 Hypertensive heart disease with heart failure; I50.9 Heart failure, unspecified
CPT/HCPCS: 71046; 99212

== ENCOUNTER 2023-06-20 13:41 | Outpatient (AMB) | payer MEDICARE, OTHER, SELFPAY ==
[2023-06-20 13:42] VITALS: BP 128/58; PULSE 92; BMI 23.2
--- NOTE | 2023-06-20 13:42 | A.OFFVIS_ITS ---
Intake Vital Signs 06/20/23 13:42 Height 5 ft 1 in Weight 122 lb 12.76 oz BMI 23.2 BP 128/58 L Blood Pressure Location Lt brachial Position Sitting Pulse 92 Pulse Source Pulse Oximeter Intake Visit Reasons: FNA results Intake Note: Patient present today for FNA results. 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 She was complaining of an occasional sensation of dysphagia with a firm mass in her neck. She then underwent a thyroid US 11/30/2021 which was read as revealing a multinodular thyroid. She was subsequently referred to Endocrinology. She underwent FNA biposy by me 03/21/2022 of a left lower pole 3.0 cm thyroid nodule, with nondiagnostic cytology. She does report occasional dysphagia, and the occasional sensation of pressure in her neck when lying flat. She otherwise denies any compressive symptoms and reports no symptoms of hyper or hypothyroidism. She denies any personal history of head or neck irradiation. She denies a family history of thyroid cancer, though her Mother and Sister both had benign thyroid nodules. Thyroid US: 11/30/2021 Right Thyroid Lobe: 5.4 x 1.9 x 1.6 cm, volume 8.8 mL. Parenchyma: The gland echotexture is heterogeneous. Thyroid vascularity is increased. Left Thyroid Lobe: 5.0 x 1.9 x 2.2 cm, volume 10.9 mL. Parenchyma: The gland echotexture is heterogeneous. Thyroid vascularity is increased. Isthmus: 0.5 cm in maximum AP dimension. Estimated total number of nodules greater than or equal to 1 cm: 1. 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 Location: Right inferior. ?? ? Size: 0.9 x 0.7 x 0.9 cm, volume 0.3 mL. ?? ? Nodule characteristics: ?? ? Composition: Solid/almost completely solid (2). ?? ? Echogenicity: Hyperechoic (1). ?? ? Shape: Not taller than wide (0). ?? ? Margins: Smooth (0). ?? ? Echogenic Foci: None (0). ?? ? ACR TI-RADS total points: 3 ?? ? ACR TI-RADS category: 3 2. Location: Left inferior. ?? ? Size: 1.9 x 1.9 x 2.1 cm, volume 3.9 mL. ?? ? Nodule characteristics: ?? ? Composition: Solid/almost completely solid (2). ?? ? Echogenicity: Hypoechoic (2). ?? ? Shape: Not taller than wide (0). ?? ? Margins: Irregular (2). ?? ? Echogenic Foci: None (0). ?? ? ACR TI-RADS total points: 6 ?? ? ACR TI-RADS category: 4 NODES: No lymphadenopathy is seen in the tissue surrounding the thyroid gland. Labs: Laboratory Tests 08/16/22 08:57 TSH 2.96 Free T4 1.05 Status post FNA of left inferior nodule in 2021 with inadequate cytology [facility] Medical History CHF (congestive heart failure) COPD (chronic obstructive pulmonary disease) GERD (gastroesophageal reflux disease) High cholesterol History of colon cancer (~2002) HTN (hypertension) Insomnia Multinodular thyroid Osteopenia (~2001) Rheumatic fever Subarachnoid bleed Surgical History History of bone marrow biopsy History of colonoscopy History of hemicolectomy History of tonsillectomy S/P thyroid biopsy History of lung biopsy History of appendectomy Family History Father Colon cancer Paternal Aunt Colon cancer Sister Breast cancer Social History Household Members: Spouse Housing: House Are you a primary health care social worker to a significant other at home: No Do you presently have visiting nurse or other home services: No Alcohol intake: never Comment: sleeping Patient Tobacco Use Status: Former Tobacco user Quit Date: 1979 Years Smoked: 20 +/- Advance Directives Date on File: 08/20/22 service: No Current occupational status: retired Physical Exam Vital Signs: Last Vital Signs Pulse 92 06/20/23 13:42 BP 128/58 L 06/20/23 13:42 BMI result Body Mass Index 23.2 Const Other: Thyroid gland is increase in size weighs about 25 g. There are no discrete nodules palpated Assessment & Plan Assessment & Plan (1) Multinodular thyroid: Code(s): E04.2 - Nontoxic multinodular goiter Plan: This is a 88-year-old white female with history of multinodular goiter status post FNA x2 of left thyroid nodule with nondiagnostic cytology. Patient appears to be clinically euthyroid. Will check TSH and free T4. Assuming normal will discuss options with the patient including following with serial ultrasounds versus reaspiration for 3rd time versus lobectomy. Considering patient's comorbidity and age, we had a long discussion with patient and daughter and they are tending to lean towards noninvasive path of biopsy or surgical resection. She does have an appointment with Dr. Norris in August 2023 I will make a decision with the daughter and other family members as to whether to proceed Orders: Orders 2 Free T4 (Free Thyroxine) Today E04.2 - Nontoxic multinodular goiter Thyroid Stimulating Hormone Today E04.2 - Nontoxic multinodular goiter Coding Level of Care Code Est Pt Level 3 (50147) Diagnoses Multinodular thyroid E04.2
== END 2023-06-20 14:37 | disposition home or self-care (01) ==
PROVIDERS: PCP Internal Medicine; Visit Provider Internal Medicine Endocrinology, Diabetes & Metabolism
DX: E04.2 Nontoxic multinodular goiter (principal)
CPT/HCPCS: 99213

== ENCOUNTER → 2023-06-20 13:41 | Outpatient (BNVA) | payer MEDICARE, OTHER, SELFPAY | PROVIDERS: Visit Provider Internal Medicine Endocrinology, Diabetes & Metabolism | DX: E04.2 Nontoxic multinodular goiter (principal) | CPT/HCPCS: 99212 ==

== ENCOUNTER 2023-07-01 09:35 | Outpatient (REF) | payer MEDICARE, OTHER, SELFPAY ==
--- NOTE | ~2023-07-01 | MM_ITS ---
EXAMINATION: MM SCREENING DIGITAL BREAST TOMOSYNTHESIS, BILATERAL CLINICAL INFORMATION: Screening. Asymptomatic. COMPARISON: Mammography: This study is compared with prior exams dating back to 2018. TECHNIQUE: Digital breast tomosynthesis is performed in both the craniocaudal and mediolateral oblique views along with computer-aided detection (CAD). Synthesized 2D images are generated from the tomosynthesis. FINDINGS: The breasts are heterogeneously dense, which may obscure small masses (ACR BI-RADS breast composition Category c). There are no significant masses, abnormal calcifications, or other abnormalities. There is relative, diffusely increased prominence of fibroglandular tissue in each breast with a normal appearance of the skin. This is consistent with the weight loss reported by the patient. MM/MM tomosynthesis screening BI IMPRESSION: No mammographic evidence of malignancy. ASSESSMENT: BI-RADS BI-RADS 1 - Negative RECOMMENDATION: Routine annual mammography screening. 1 year F/U This examination should not preclude the clinical evaluation of a suspicious palpable abnormality. This patient's information was entered into a reminder system with a target due date for their next mammogram.
== END 2023-07-01 09:36 | disposition home or self-care (01) ==
LOC: HO.MAMMO 09:35
PROVIDERS: PCP Internal Medicine; Visit Provider Internal Medicine
DX: Z12.31 Encounter for screening mammogram for malignant neoplasm of breast (principal)
CPT/HCPCS: 77063; 77067

== ENCOUNTER → 2023-07-01 10:00 | Outpatient (BNV) | payer MEDICARE, OTHER, SELFPAY | PROVIDERS: PCP Internal Medicine; Visit Provider Radiology Diagnostic Radiology | DX: Z12.31 Encounter for screening mammogram for malignant neoplasm of breast (principal) | CPT/HCPCS: 77063; 77067 ==

== ENCOUNTER 2023-07-03 10:07 | Outpatient (REF) | payer MEDICARE, OTHER, SELFPAY ==
[2023-07-03 12:32] LABS: Free T4 (Free Thyroxine) 0.99 ng/dL (0.71-1.85); Thyroid Stimulating Hormone 3.57 uIU/mL (0.32-4.0)
== END 2023-07-03 10:08 | disposition home or self-care (01) ==
LOC: HO.LAB 10:07
PROVIDERS: PCP Internal Medicine; Visit Provider Internal Medicine Endocrinology, Diabetes & Metabolism
DX: E04.2 Nontoxic multinodular goiter (principal)
CPT/HCPCS: 36415; 84439; 84443

== ENCOUNTER 2023-07-06 10:26 | Outpatient (REF) | payer MEDICARE, OTHER, SELFPAY ==
--- NOTE | ~2023-07-06 | XR_ITS ---
EXAMINATION: XR CHEST CLINICAL INFORMATION: Chest pain COMPARISON: Chest 06/19/2023. TECHNIQUE: 2 views of the chest were obtained. FINDINGS: The lungs are well-expanded with patchy opacity right lung base likely infiltrate and/or atelectasis. Rest of the lungs are clear. Heart size and pulmonary vascularity is normal. No gross bony abnormality seen. XR/XR chest 2V IMPRESSION: Patchy opacity right lung base likely infiltrate and/or atelectasis.
== END 2023-07-06 10:27 | disposition home or self-care (01) ==
LOC: HO.XRAY 10:26
PROVIDERS: PCP Internal Medicine; Visit Provider Hospitalist
DX: R07.9 Chest pain, unspecified (principal)
CPT/HCPCS: 71046

== ENCOUNTER 2023-07-30 13:21 | Emergency (ER) | payer MEDICARE, OTHER, SELFPAY ==
--- NOTE | ~2023-07-30 | CT_ITS ---
EXAMINATION: CT CHEST, ABDOMEN, AND PELVIS WITH CONTRAST CLINICAL INFORMATION: Left-sided chest pain and abdominal pain COMPARISON: CT chest from 09/06/2022 TECHNIQUE: Multidetector volumetric CT imaging of the chest, abdomen, and pelvis was obtained after the administration of 85 mL of Omnipaque 350 intravenous contrast without immediate adverse reactions. Axial MIP volume rendering provided. Sagittal and coronal reformatted images were obtained. This CT examination was performed using dose optimization techniques as appropriate, variously including the following: *Automated exposure control *Adjustment of mA and/or kV according to patient size (this includes techniques or standardized protocols for targeted exams where dose is matched to indication/reason for exam; i.e. extremities or head) *Use of iterative reconstruction technique DLP: 477.13 mGy-cm FINDINGS: LUNGS: There are changes of emphysema. There is patchy airspace disease in the right lower lobe, with masslike lesion, new since previous examination, measured 2.5 x 2.8 x 3.6 cm. In the right middle lobe there is consolidation with cystic bronchiectasis better visualized there is likely pulmonary hypertension with prominent pulmonary trunk and pulmonary arteries. On sagittal reconstruction, measured 2.3 x 2.9 x 2.4 cm. Groundglass opacity seen subpleural in the right lower lobe. No evidence of consolidation in the left lung. There is small inguinal nodule measured approximately 0.6 cm. There is small pleural thickening and pleural effusion on the left. MEDIASTINUM: There is prominence of pulmonary trunk and main pulmonary arteries most likely due to pulmonary hypertension. Aorta is not dilated. There is no mediastinal or hilar lymphadenopathy. CORONARY ARTERY CALCIFICATION: Mild coronary artery calcifications present. PLEURA: There is small left-sided pleural effusion. AXILLA: No lymphadenopathy by size criteria. LIVER, GALLBLADDER, AND BILIARY TREE: Small lesions seen in the right lobe of the liver. Capsular, measured 1.0 cm most likely hemangioma or cyst. Unremarkable appearance of the gallbladder. PANCREAS: Unremarkable SPLEEN: Unremarkable ADRENAL GLANDS: There is adrenal gland low-attenuation mass on the left measured on 1.6 x 1.2 cm. KIDNEYS AND URETERS: The kidneys appear unremarkable in size, shape, and attenuation. No hydronephrosis, hydroureter, or calculi seen. BLADDER: Unremarkable GASTROINTESTINAL TRACT: The small and large bowel appear unremarkable. Patient is status post bowel resection with surgical sutures present on the right. There is constipation. Appendix is not seen. ABDOMINAL WALL: No significant hernia is appreciated. LYMPH NODES: No evidence of adenopathy by size criteria. VASCULAR: There are atherosclerotic calcification of nondilated abdominal aorta PELVIC VISCERA: Unremarkable OSSEOUS STRUCTURES: There are multilevel degenerative changes in lumbar spine and levoscoliosis. CT/CT abdomen pelvis w IV con IMPRESSION: 1. Masslike consolidation in the right lower lobe and consolidation in the right middle lobe. 2. Small left-sided pleural effusion and pleural thickening. 3. Most likely pulmonary hypertension. 4. Constipation. 5. Left adrenal gland mass most likely adenoma. 6. Small lesions in the liver most likely hemangioma or cyst.
[2023-07-30 13:23] VITALS: BP 126/56; PULSE 77; RESP 19; TEMP 36.6; O2SAT 90; BMI 22.1
--- NOTE | 2023-07-30 13:26 | ECG_ITS ---
Test Reason : SOB Blood Pressure : / mmHG Vent. Rate : 069 BPM Atrial Rate : 208 BPM P-R Int : 000 ms QRS Dur : 096 ms QT Int : 410 ms P-R-T Axes : 000 001 026 degrees QTc Int : 439 ms Normal sinus rhythm Minimal voltage criteria for LVH, may be normal variant ( Yung product ) Borderline ECG When compared with ECG of 11-FEB-2023 12:44, No significant changes seen Referred By: Dusty Cedillo Electronically Signed By:CLARENCE MCMULLEN MD
[2023-07-30 13:28] VITALS: O2SAT 95
--- NOTE | 2023-07-30 13:34 | ED_ITS ---
HPI - Chest Pain General Chief Complaint: Chest Pain Stated Complaint: Elevated Heartrate Time Seen by Provider: 07/30/23 14:01 Source: patient Mode of arrival: ambulatory History of Present Illness HPI narrative: this is a an 88-year-old female who presents with complaints of 2 weeks of dyspnea on exertion, patient does wear oxygen at baseline due to COPD, patient also reports left-sided chest discomfort as well as left upper quadrant discomfort that is not associated with arm movement or deep inspiration. 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 Patient denies any traumatic falls or injuries. Related Data Home Medications Medication Instructions Recorded Confirmed cholecalciferol (vitamin D3) 50 50 mcg PO DAILY@1800 06/14/20 06/19/23 mcg (2,000 unit) tablet ferrous sulfate 325 mg (65 mg 325 mg PO DAILY@1800 06/14/20 06/19/23 iron) tablet multivitamin 1 tab PO DAILY 06/14/20 06/19/23 olmesartan 40 mg tablet 40 mg PO DAILY 06/14/20 06/19/23 omeprazole 40 mg capsule,delayed 40 mg PO DAILY@0630 06/14/20 06/19/23 release simvastatin 40 mg tablet 40 mg PO BEDTIME 06/14/20 06/19/23 ascorbic acid (vitamin C) 500 mg 500 mg PO DAILY@1800 11/29/21 06/19/23 tablet docusate sodium 100 mg capsule 100 mg PO BID 11/29/21 06/19/23 (Colace) carvedilol 3.125 mg tablet 3.125 mg PO DAILY@0900,1800 03/08/22 06/19/23 hydralazine 50 mg tablet 50 mg PO TID 08/22/22 06/19/23 Oxygen Home Use 03/26/23 Previous Rx's Medication Instructions Recorded trazodone 50 mg tablet 100 mg (2 x 50 mg) PO BEDTIME 30 04/10/23 days #60 tabs fluticasone fur. 100 mcg-umeclid 1 ea inhalation DAILY #60 ea 05/13/23 62.5 mcg-vilant 25 mcg inhalat.powder (Trelegy Ellipta) nifedipine 60 mg tablet,extended 60 mg PO BID #120 tabs 06/19/23 release amoxicillin 875 mg-potassium 1 tab PO BID 7 days #14 tabs 07/30/23 clavulanate 125 mg tablet Allergies Allergy/AdvReac Type Severity Reaction Status Date / Time cimetidine [From TAGAMET] Allergy Mild HEADACHES Verified 07/30/23 13:23 lisinopril [LISINOPRIL] Allergy Mild COUGH Verified 07/30/23 13:23 phenytoin [Dilantin] Allergy Unknown rash Verified 07/30/23 13:23 hydrochlorothiazide AdvReac Shortness Verified 07/30/23 13:23 of Breath Review of Systems 2 Review of Systems: Pertinent positives and negatives as stated in [facility] Past Medical History Source: nursing notes reviewed Onset Date is defined in the Problem List Problems that require an onset date and time if occurred within 24 hrs of arrival to the ED Aortic Dissection and Rupture; Neurologic impairment; Cardiopulmonary Arrest; Endotracheal Intubation; Insertion or Replacement of Mechanical Circulatory Assist Device Medical History (HFpEF) heart failure with preserved ejection fraction Osteopenia (~2001) History of colon cancer (~2002) Insomnia COPD (chronic obstructive pulmonary disease) Multinodular thyroid CHF (congestive heart failure) Rheumatic fever Subarachnoid bleed High cholesterol GERD (gastroesophageal reflux disease) HTN (hypertension) Surgical History History of bone marrow biopsy History of colonoscopy History of hemicolectomy History of tonsillectomy S/P thyroid biopsy History of lung biopsy History of appendectomy Family History Family History Father Colon cancer Paternal Aunt Colon cancer Sister Breast cancer Social History Social History Household Members: Spouse Housing: House Are you a primary care transitions nurse to a significant other at home: No Do you presently have visiting nurse or other home services: No Alcohol intake: former Comment: sleeping Patient Tobacco Use Status: Former Tobacco user Quit Date: 1979 Years Smoked: 20 +/- Smoked in Last 30 Days: No Advance Directives: Yes Advance Directives on File: Yes Advance Directives Date on File: 08/20/22 service: No Current occupational status: retired Physical Exam 2 Vital Signs: Vital Signs: Last Vital Signs Temp 98.5 F 07/30/23 18:24 Pulse 65 07/30/23 18:24 Resp 17 07/30/23 18:24 BP 137/57 L 07/30/23 18:24 Pulse Ox 98 07/30/23 18:24 O2 Del Method Nasal Cannula 07/30/23 18:24 O2 Flow Rate 2 07/30/23 18:24 BMI result Body Mass Index 22.1 VITAL SIGNS: Reviewed. GENERAL: Well developed, well nourished, in no acute distress. HEAD: Normocephalic/atraumatic EYES: PERRLA, EOMI EARS: Ext canals without abnormality NOSE: Nares patent bilateral OROPHARYNX: no oral lesions noted, posterior pharynx clear NECK: Supple, no adenopathy LUNGS: Bibasilar rales, no expiratory wheeze noted. SpO2<98>2 L of nasal cannula at baseline. CARDIOVASCULAR: Regular rate and rhythm without noted murmurs, no JVD or lower extremity edema. ABDOMEN: Soft, non-tender, non-distended with bowel sounds. MUSCULOSKELETAL: No tenderness, deformities, or effusions noted on gross inspection. EXTREMITIES: No cyanosis, clubbing or edema. SKIN: Inspection of the skin reveals no rashes NEUROLOGIC: Alert and oriented x 4. Strength and sensation to light touch were grossly intact x 4. Course Course Course Narrative: RME: 88-year-old female history of COPD presents to ED for 1 month of shortness of breath on exacerbation and left upper abdominal pain. Patient sent by her drywaller Dr. Leatha early for CHF exacerbation. Nurse Sheila made aware of patient. Patient will be brought to bed 19. Patient oxygen dependent. Patient id % on room air placed on 2 L oxygen. O2 saturation now 95%. Medications Administered Discontinued Medications Generic Name Dose Route Start Last Admin Trade Name Freq PRN Reason Stop Dose Admin Acetaminophen 975 mg 07/30/23 14:10 07/30/23 15:57 Acetaminophen 325 Mg Tablet PO 07/30/23 14:11 975 mg ONCE ONE Administration Ibuprofen 400 mg 07/30/23 14:11 07/30/23 15:57 Ibuprofen 400 Mg Tablet PO 07/30/23 14:12 400 mg ONCE ONE Administration Iohexol 85 ml 07/30/23 15:57 07/30/23 15:58 Iohexol 350 Mg/Ml 100 Ml Infus..Btl IV 07/30/23 15:58 85 ml ONCE ONE Administration Medical Decision Making Medical Decision Making [facility] Narrative: 88-year-old female with history and clinical presentation, DDX: viral illness, pneumonia, CHF, chronic lung disease, ACS I reviewed all investigations and hematologic indices are negative for leukocytosis and patient has chronic left shift as well as chronic normocytic anemia and no thrombocytopenia. Patient is on baseline supplemental oxygen and appears to be oxygenating well, VBG does not demonstrate any respiratory acidosis or hypercapnia. Coagulation studies are not elevated. chemistry indices do not demonstrate an ALAINA and there is no electrolyte or liver enzyme derangements. BNP is noted to be elevated and given patient's history will proceed with 20 mg of IV Lasix. High sensitivity troponin although detectable is not significantly elevated and is not associated with any acute changes on EKG. Viral testing is negative. CT scan of the chest demonstrates consolidation though there is no associated hypoxemia. This will need to be further evaluated in the outpatient setting but patient will be started on antibiotics and then discharged home. Differential Diagnosis Differential Diagnoses: The differential diagnosis associated with the presentation includes Please see the discussion above Admission/Observation Consideration of admission/observation: Escalation of care including admission/observation considered please see the discussion above Lab Data [facility] Lab Attestation statement: I reviewed the patient's lab results. Please see the discussion above 07/30/23 13:47 07/30/23 13:47 Labs: Lab Results 07/30/23 07/30/23 07/30/23 Range/Units 13:46 13:47 16:02 WBC 5.1 (4.8-10.8) X10*3/uL RBC 3.83 L (4.20-5.50) X10*6/uL Hgb 10.7 L (12.0-16.0) g/dl Hct 34.4 L (37.0-47.0) % MCV 89.8 (80.0-98.0) fL MCH 27.9 (27.0-33.0) pg MCHC 31.1 (31.0-35.0) g/dl RDW 15.9 (11.0-16.0) % Plt Count 342 (160-400) X10*3/uL MPV 8.5 L (9.4-12.3) fL Immature Gran % (Auto) 2.0 H (0.0-0.4) % Neut % (Auto) 80.1 H (45-73) % Lymph % (Auto) 8.3 L (20-40) % [place] % (Auto) 4.9 (2-11) % Eos % (Auto) 4.1 H (0-4) % Baso % (Auto) 0.6 (0-2) % Lymph # (Auto) 0.4 L (1.2-4.9) X10*3/uL [place] # (Auto) 0.3 (0.1-1.2) X10*3/uL Eos # (Auto) 0.2 (0.0-0.4) X10*3/uL Baso # (Auto) 0.0 (0.0-0.2) X10*3/uL Abs Immat Gran (auto) 0.10 H (0.00-0.03) X10*3/uL Absolute Neuts (auto) 4.1 (2.0-8.3) x10*3/uL Absolute Nucleated RBC 0.000 (0.0-0.012) X10*3/uL Nucleated RBC % (auto) 0.0 (0.0-0.2) /100WBC PT 10.4 L (11.1-13.3) SEC INR 0.9 (0.9-1.1) APTT 24.7 L (26.0-36.4) SEC VBG pH 7.41 (7.32-7.43) VBG pCO2 40 mmHg VBG pO2 52 mmHg VBG HCO3 26 (22-26) mmol/L VBG O2 Saturation 80.0 % VBG Base Excess 1.8 mmol/L Sodium 136 (135-145) mmol/L Potassium 4.1 (3.3-5.1) mmol/L Chloride 106 (96-108) mmol/L Carbon Dioxide 20 L (22-29) mmol/L Anion Gap 14 (12-20) BUN 27 H (9-16) mg/dL Creatinine 0.85 (0.5-1.4) mg/dL Estim Creat Clear Calc 34.1 Estimated GFR > 60 Random Glucose 124 H (60-115) mg/dL Calcium 9.3 (8.4-10.2) mg/dL Total Bilirubin 0.3 (0.0-1.0) mg/dL AST 18 (5-31) U/L ALT 13 (0-31) U/L Alkaline Phosphatase 76 (39-117) U/L Troponin I High Sens 4.1 D (<3.5-17.0) ng/L B-Natriuretic Peptide 220 H (<100) pg/mL Total Protein 8.4 H (6.5-8.0) g/dL Albumin 3.2 L (3.5-5.0) g/dL Influenza Type A (PCR) NEGATIVE (Negative) Influenza Type B (PCR) NEGATIVE (Negative) RSV RNA Qual (PCR) NEGATIVE (Negative) SARS-CoV-2 RNA (RT-PCR) NEGATIVE (Negative) Independent Interpretation I performed an independent interpretation of an: EKG Interpretation: normal sinus rhythm, HR - 69, no STEMI, HI/ QRS /QTC is within normal limits. Radiology Impression Discussion of test interpretation with radiology: I have reviewed the radiologist's reading. Radiologist Impression: Please see the discussion above External Record Review External record reviewed: Outpatient record, Prior outpatient labs and Prior outpatient radiology Chronic Conditions Patient?s care impacted by: Hypertension and Other COPD, CHF, chronic bronchitis Critical Care Time Critical Care Time Critical Care Time: Yes Total Critical Care Time: 60 Attestation: I personally attest to this time spent taking care of the patient. Discharge Plan Discharge Clinical Impression: Pneumonia, CHF (congestive heart failure), COPD (chronic obstructive pulmonary disease) Patient Disposition: Home, Self-Care Instructions: COPD (Chronic Obstructive Pulmonary Disease) (ED), Chronic Bronchitis (ED), Pneumonia (ED) Additional Instructions: 1. Resume all home medications as prescribed. 2. Complete the entire course of antibiotics as prescribed. 3. 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 Return to the ER for any worsening symptoms. Prescriptions: New amoxicillin-pot clavulanate 875-125 mg tablet 1 tab PO BID 7 Days Qty: 14 0RF No Action trazodone 50 mg tablet 100 mg PO BEDTIME 30 Days Qty: 60 11RF Rx Instructions: Take 1 hour before sleep Trelegy Ellipta 100-62.5-25 mcg blister with device 1 ea inhalation DAILY Qty: 60 11RF omeprazole 40 mg capsule,delayed release(DR/EC) 40 mg PO DAILY@0630 simvastatin 40 mg tablet 40 mg PO BEDTIME olmesartan 40 mg tablet 40 mg PO DAILY multivitamin Tablet 1 tab PO DAILY ferrous sulfate 325 mg (65 mg iron) Tablet 325 mg PO DAILY@1800 cholecalciferol (vitamin D3) 50 mcg (2,000 unit) Tablet 50 mcg PO DAILY@1800 ascorbic acid (vitamin C) 500 mg tablet 500 mg PO DAILY@1800 docusate sodium [Colace] 100 mg capsule 100 mg PO BID carvedilol 3.125 mg tablet 3.125 mg PO DAILY@0900,1800 Protocol: Hold for SBP/HR < HOLD for SBP < : 90 HOLD for HR < : 60 hydralazine 50 mg tablet 50 mg PO TID (DME) Oxygen Home Use Kit See Rx Instructions .ROUTE Rx Instructions: As directed nifedipine 60 mg tablet extended release 60 mg PO BID Qty: 120 4RF Referrals: Uri Houston MD [Primary Care Provider] - Mathew Alfaro MD [Physician] -
[2023-07-30 14:00] VITALS: BP 128/64; PULSE 84; RESP 18; O2SAT 98
[2023-07-30 14:00] LABS: MANUAL DIFF FLAG NO
[2023-07-30 14:01] LABS: Basophils Percent Auto 0.6 % (0-2); Eosinophils Absolute Auto 0.2 X10*3/uL (0.0-0.4); Eosinophils Percent Auto 4.1 % (0-4); Hematocrit 34.4 % (37.0-47.0); Hemoglobin 10.7 g/dl (12.0-16.0); Lymphocytes Absolute Auto 0.4 X10*3/uL (1.2-4.9); Lymphocytes Percent Auto 8.3 % (20-40); Mean Corpuscular HGB Conc 31.1 g/dl (31.0-35.0); Mean Corpuscular Hemoglobin 27.9 pg (27.0-33.0); Mean Corpuscular Volume 89.8 fL (80.0-98.0); Mean Platelet Volume 8.5 fL (9.4-12.3); Monocytes Absolute Auto 0.3 X10*3/uL (0.1-1.2); Monocytes Percent Auto 4.9 % (2-11); Neutrophils Absolute Auto 4.1 x10*3/uL (2.0-8.3); Neutrophils Percent Auto 80.1 % (45-73); Platelet Count 342 X10*3/uL (160-400); Red Blood Count 3.83 X10*6/uL (4.20-5.50); Red Cell Distribution Width 15.9 % (11.0-16.0); White Blood Count 5.1 X10*3/uL (4.8-10.8)
[2023-07-30 14:06] LABS: INTERNATIONAL NORM RATIO 0.9 (0.9-1.1); Prothrombin Time 10.4 SEC (11.1-13.3)
[2023-07-30 14:14] LABS: Partial Thromboplastin Time 24.7 SEC (26.0-36.4)
[2023-07-30 14:21] LABS: Alanine Aminotransferase 13 U/L (0-31); Albumin Level 3.2 g/dL (3.5-5.0); Alkaline Phosphatase 76 U/L (39-117); Anion Gap 14 (12-20); Aspartate Amino Transferase 18 U/L (5-31); Bilirubin Total 0.3 mg/dL (0.0-1.0); Blood Urea Nitrogen 27 mg/dL (9-16); Calcium 9.3 mg/dL (8.4-10.2); Carbon Dioxide 20 mmol/L (22-29); Chloride 106 mmol/L (96-108); Creatinine Clr Calc Pharmacy 34.1; Estimated Glomerular Filt Rate > 60; Glucose Random 124 mg/dL (60-115); Potassium 4.1 mmol/L (3.3-5.1); Sodium 136 mmol/L (135-145); Total Protein 8.4 g/dL (6.5-8.0)
[2023-07-30 14:25] LABS: B Type Natriuretic Peptide 220 pg/mL (<100)
--- OUTSIDE RECORDS SUMMARY | 2023-07-30 14:25 | XMS_ITS | Patient Health Record ---
Author Name Unknown Organization [facility] Address [address] [place] [id number] Care Team Providers Care Sales Service Assistant Name Role Phone Uri Houston MD Primary Care Provider Paul Tejeda Unavailable [phone] ALLERGIES Allergen (clinical drug ingredient) Drug/Non Drug Allergy documented on EMR Reaction Allergy Type Onset Date Status lisinopril Lisinopril Unknown Drug Allergy Activ e phenytoin Dilantin Unknown Drug Allergy Active REASON FOR REFERRAL No Information MEDICATIONS Medication SIG (Take, Route, Frequency, Duration) Notes Start Date End Date Status Vitamin C 500mg 1 tablet Orally Once a day Active Iron 325mg 1 tablet Orally Once a day Active Omeprazole 20 MG 1 capsule Orally 1 P O BID Active Simvastatin 40 MG 1 TABLET Orally QD Active NIFEdipine 60mg 1 capsule Orally 1 P O QD Active Vitamin D 2000 UNIT 1 tablet Orally as directed Active Multi Vitamin/Minerals 1 TABLET Orally 1 PO QD Active Docusate Sodium 100 MG 1 capsule as need ed Orally Once a day Active Olmesartan Medoxomil 40 MG 1 tablet Orally Once a day for 30 day(s) Active Colyte with Flavor Packs 240 GM 1 ml one time Orally 1 time only for 1 dose 10/30/2011 Not-Taking IMMUNIZATIONS Vaccine Route Administration Date Status Comme nts Flu vaccine no Preserv 3 and > Unknown 05/14/2014 Admin istered Influenza Unknown 05/04/2019 Administered SOCIAL HISTORY Sex Assigned At : Social History Observation Description Sex Assigned At Unknown PROBLEMS Problem Type ICD Code Onset Dates Problem Status W/U Status Risk SNOMED Code Notes Problem Gastroesophageal reflux disease without esophagitis (K21.9) Active confirmed 870327862 Problem Hiatal hernia (K44.9) Active confirmed 87232955 Problem Hypertension, unspecified type (I10) Active confirmed 97519511 PLAN OF TREATMENT Future Test Test Name Order Date COLONOSCOPY 03/02/2015 Insurance Providers Payer Name Payer Address Payer Phone Subscriber Number Group Number Insured Name Patient Relationship to Insured Coverage Start Date Coverage End Date MEDICARE OF [place] [address] [place] [address] [id number] ZULMA PEREZ Self - patient is the insured [facility] INDEMNITY [address] [place] [address] [id number] Self - patient is the insured MEDICAL (GENERAL) HISTORY Medical History History ICD Code Colon CA. rese[place] [address] Leila greer, followed by Dr. 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 for polyps Colonoscopy 04/2015--1 small tubular cyrus noma removed Surgical History Surgery Date(Month/Year) Right colectomy in 2002 for [address] cancer with Dr. Franco Appy Tonsillectomy and adenoidectomy
[2023-07-30 14:38] LABS: Influenza A PCR NEGATIVE (Negative); Influenza B PCR NEGATIVE (Negative); Resp Syncy Virus RNA Qual PCR NEGATIVE (Negative); SARS COV2 PCR INHOUSE NEGATIVE (Negative)
[2023-07-30 14:53] LABS: Troponin-I High Sensitivity 4.1 ng/L (<3.5-17.0)
[2023-07-30 15:52] VITALS: BP 153/56; PULSE 73; RESP 19; TEMP 36.5; O2SAT 972
[2023-07-30] MEDS: Ibuprofen 400 MG TABLET PO (15:57)
[2023-07-30] MEDS: Acetaminophen 325 MG TABLET 975 MG PO (15:57)
[2023-07-30] MEDS: iohexoL 350 MG/ML 100 ML INFUS..BTL 85 ML IV (15:58)
--- NOTE | 2023-07-30 16:00 | PC.NURSE ---
While CT was injecting contrast dye iv infiltrated. Patient with large raised area to right forearm. Heat pack applied
[2023-07-30 16:08] LABS: VBG Base Excess 1.8 mmol/L; VBG HCO3 26 mmol/L (22-26); VBG pCO2 40 mmHg; VBG pH 7.41 (7.32-7.43); VBG pO2 52 mmHg
[2023-07-30 16:10] LABS: Venous Blood Gas Refer to POC result
[2023-07-30 18:24] VITALS: BP 137/57; PULSE 65; RESP 17; TEMP 36.9; O2SAT 98
[2023-07-30] MEDS: Amoxicillin/Potassium Clav 875 MG TABLET PO (18:42)
== END 2023-07-30 21:29 | disposition home or self-care (01) ==
PROVIDERS: Physician Assistant; Emergency Provider Student in an Organized Health Care Education/Training Program; PCP Internal Medicine
DX: J18.9 Pneumonia, unspecified organism (principal); R07.89 Other chest pain; I50.9 Heart failure, unspecified; J44.9 Chronic obstructive pulmonary disease, unspecified; R10.2 Pelvic and perineal pain; Z87.891 Personal history of nicotine dependence; Z79.899 Other long term (current) drug therapy; Z20.822 Contact with and (suspected) exposure to COVID-19; Z20.828 Contact with and (suspected) exposure to other viral communicable diseases; Z99.81 Dependence on supplemental oxygen
CPT/HCPCS: 0241U; 36415; 71260; 74177; 80053; 82803; 83880; 84484; 85025; 85610; 85730; 93005; 99285; Q9967

== ENCOUNTER → 2023-07-30 13:26 | Outpatient (BNV) | payer MEDICARE, OTHER, SELFPAY | PROVIDERS: Emergency Provider Student in an Organized Health Care Education/Training Program; PCP Internal Medicine; Visit Provider Internal Medicine Cardiovascular Disease | DX: R06.02 Shortness of breath (principal) | CPT/HCPCS: 93010 ==

== ENCOUNTER 2023-08-07 11:03 | Outpatient (AMB) | payer MEDICARE, OTHER, SELFPAY ==
[2023-08-07 11:23] VITALS: BP 122/64; PULSE 65; O2SAT 97; BMI 22.1
--- NOTE | 2023-08-07 11:23 | A.OFFVIS_ITS ---
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 Accompanied by: Self / Same As Patient Allergies cimetidine [From TAGAMET] Allergy (Mild, Verified 08/07/23 11:27) HEADACHES lisinopril [LISINOPRIL] Allergy (Mild, Verified 08/07/23 11:27) COUGH phenytoin [Dilantin] Allergy (Unknown, Verified 08/07/23 11:27) rash hydrochlorothiazide Adverse Reaction (Verified 08/07/23 11:27) Shortness of Breath Medication List - Last Reconciled 08/07/23 by Ann Whitehead LPN amoxicillin-pot clavulanate 875-125 mg 1 tab PO BID 7 days ascorbic acid (vitamin C) 500 mg PO DAILY@1800 carvedilol 3.125 mg See Protocol PO DAILY@0900,1800 cholecalciferol (vitamin D3) 50 mcg PO DAILY@1800 docusate sodium (Colace) 100 mg PO BID ferrous sulfate 325 mg PO DAILY@1800 [id number] 100-62.5-25 mcg (Trelegy Ellipta) 1 ea inhalation DAILY hydralazine 50 mg PO TID multivitamin 1 tab PO DAILY nifedipine ER 60 mg PO BID olmesartan 40 mg PO DAILY omeprazole 40 mg PO DAILY@0630 Oxygen Home Use As directed simvastatin 40 mg PO BEDTIME trazodone 100 mg (2 x 50 mg) PO BEDTIME 30 days HPI Hospital follow pnsaloómn HPI Details Dunia Reynolds is a pleasant 88 year old female, former smoker, with underlying COPD on 2L continuous supplemental oxygen, chronic anemia on procrit, CHF and colon cancer s/p resection in 2002. She is also being followed for a RML pulmonary nodule that was mild PET avid, presumed malignancy and underwent radiation through [facility] in December 2022. At baseline she reports dyspnea on exertion and intermittent dry cough, which she is moderately controlled on Trelegy. She denies wheezing or chest tightness. Today she presents for a hospital follow up. She presented to [facility] on 07/30/22 for ongoing LUQ pain and fatigue x 1 month. She also reports weight loss and poor appetite. She denies nausea or vomiting. She denies fevers or chills. Chest CT revealed a masslike consolidation and was treated for pneumonia and CHF exacerbation (BNP elevated, WBC normal) with IV lasix and discharged on augmentin. Overall she reports improvements since discharge and has not required an increase in supplemental oxygen, however continues with intermittent LUQ pain. She has a close follow up with Eliz for repeat chest CT next month and will follow up with PCP regarding continued LUQ discomfort. [facility] Medical History (HFpEF) heart failure with preserved ejection fraction Osteopenia (~2001) History of colon cancer (~2002) Insomnia COPD (chronic obstructive pulmonary disease) Multinodular thyroid CHF (congestive heart failure) Rheumatic fever Subarachnoid bleed High cholesterol GERD (gastroesophageal reflux disease) HTN (hypertension) Surgical History History of bone marrow biopsy History of colonoscopy History of hemicolectomy History of tonsillectomy S/P thyroid biopsy History of lung biopsy History of appendectomy Family History Father Colon cancer Paternal Aunt Colon cancer Sister Breast cancer Social History (Updated 08/07/23 @ 11:32 by Ann Whitehead LPN) Household Members: Spouse Housing: House Are you a primary medicare coordinator to a significant other at home: No Do you presently have visiting nurse or other home services: No Alcohol intake: former Comment: sleeping Patient Tobacco Use Status: Former Tobacco user Quit Date: 1979 Smoked: 20 +/- Smoked in Last 30 Days: No Advance Directives Date on File: 08/20/22 service: No Current occupational status: retired Review of Systems Const Denies chills, Denies excessive sweating, Denies fever(s), Denies headache(s) and Denies night sweats ENT Reports Normal hearing present, Denies headache(s), Denies nasal congestion, Denies nasal discharge and Denies sore throat Card Denies chest pain, Denies chest pain at rest, Denies chest pain with activity, Denies claudication, Denies leg edema and Denies paroxysmal nocturnal dyspnea Resp Denies chest congestion, Denies excessive phlegm production, Denies pain on inspiration, Denies pain with cough, Denies stridor and Denies wheezing Musc Denies myalgias Neuro Reports Normal hearing present and Denies headache(s) Endo Denies excessive sweating Masoud/Lymph Denies lymphadenopathy Aller/Immun Denies seasonal rhinorrhea and Denies wheezing Physical Exam Vital Signs: Last Vital Signs Pulse 65 08/07/23 11:23 BP 122/64 08/07/23 11:23 Pulse Ox 97 08/07/23 11:23 Oxygen Delivery Method Nasal Cannula 08/07/23 11:23 Oxygen Flow Rate 2 08/07/23 11:23 BMI result Body Mass Index 22.1 Const Other: wearing supplemental oxygen 2 L General: cooperative, comfortable, no acute distress, well developed and alert Orientation/consciousness: patient oriented x3 Limitations: no limitations HEENT Head: Yes normal to inspection, Yes normocephalic and Yes atraumatic Ears: hearing grossly normal bilaterally and external ears normal Eyes General: appearance normal, both eyes and all related structures Eyelids: Yes eyelids normal Sclerae: sclerae normal EOM: EOMs intact bilaterally Neck Neck: Yes normal visual inspection and Yes no lymphadenopathy Lymphatic: no lymphadenopathy noted Chest Chest palpation & inspection: normal inspection of the chest Resp Other: diminished lung sounds Effort & Inspection: normal respiratory effort, able to speak in complete sentences, no audible wheezes, no cough, no stridor, not tachypneic, no tripod positioning and no use of accessory muscles Cardio Jugular venous distension: no JVD Rate: regular rate Rhythm: regular rhythm Skin Other: warm, dry General skin exam: no rashes or lesions noted Neuro General: patient oriented x3 Cranial nerves: Yes Normal hearing present Cognition (Neuro): normal cognition Gait exam (Neuro): Normal gait present Extrem General: Yes normal to inspection, Yes capillary refill normal, Yes no clubbing, cyanosis or edema and Yes no pedal edema Psych Appearance: grossly normal and well kempt Speech and movement: Normal speech and movement present and Clear speech present Affect: normal affect Attitude: cooperative Thought process: Normal thought process present Thought content: Normal thought content present Insight: Good insight present (Psych) Judgement: Good judgement present (Psych) Results Reviewed Results Reviewed: [address] [address] [address] Scan Report Signed Patient: Dunia Dow MR#: [id number] : 1935 Acct:[id number] Age/Sex: 88 / F ADM Date: 07/30/23 Loc: HO.ED Attending Dr: Ordering Physician: Radha Cisneros MD Date of Service: 07/30/23 Procedure(s): CT chest w IV con Accession Number(s): [id number] cc: Uri Houston MD; Radha Cisneros MD~ EXAMINATION: CT CHEST, ABDOMEN, AND PELVIS WITH CONTRAST CLINICAL INFORMATION: Left-sided chest pain and abdominal pain COMPARISON: CT chest from 09/06/2022 TECHNIQUE: Multidetector volumetric CT imaging of the chest, abdomen, and pelvis was obtained after the administration of 85 mL of Omnipaque 350 intravenous contrast without immediate adverse reactions. Axial MIP volume rendering provided. Sagittal and coronal reformatted images were obtained. This CT examination was performed using dose optimization techniques as appropriate, variously including the following: *Automated exposure control *Adjustment of mA and/or kV according to patient size (this includes techniques or standardized protocols for targeted exams where dose is matched to indication/reason for exam; i.e. extremities or head) *Use of iterative reconstruction technique DLP: 477.13 mGy-cm FINDINGS: LUNGS: There are changes of emphysema. There is patchy airspace disease in the right lower lobe, with masslike lesion, new since previous examination, measured 2.5 x 2.8 x 3.6 cm. In the right middle lobe there is consolidation with cystic bronchiectasis better visualized there is likely pulmonary hypertension with prominent pulmonary trunk and pulmonary arteries. On sagittal reconstruction, measured 2.3 x 2.9 x 2.4 cm. Groundglass opacity seen subpleural in the right lower lobe. No evidence of consolidation in the left lung. There is small inguinal nodule measured approximately 0.6 cm. There is small pleural thickening and pleural effusion on the left. MEDIASTINUM: There is prominence of pulmonary trunk and main pulmonary arteries most likely due to pulmonary hypertension. Aorta is not dilated. There is no mediastinal or hilar lymphadenopathy. CORONARY ARTERY CALCIFICATION: Mild coronary artery calcifications present. PLEURA: There is small left-sided pleural effusion. AXILLA: No lymphadenopathy by size criteria. LIVER, GALLBLADDER, AND BILIARY TREE: Small lesions seen in the right lobe of the liver. Capsular, measured 1.0 cm most likely hemangioma or cyst. Unremarkable appearance of the gallbladder. PANCREAS: Unremarkable SPLEEN: Unremarkable ADRENAL GLANDS: There is adrenal gland low-attenuation mass on the left measured on 1.6 x 1.2 cm. KIDNEYS AND URETERS: The kidneys appear unremarkable in size, shape, and attenuation. No hydronephrosis, hydroureter, or calculi seen. BLADDER: Unremarkable GASTROINTESTINAL TRACT: The small and large bowel appear unremarkable. Patient is status post bowel resection with surgical sutures present on the right. There is constipation. Appendix is not seen. ABDOMINAL WALL: No significant hernia is appreciated. LYMPH NODES: No evidence of adenopathy by size criteria. VASCULAR: There are atherosclerotic calcification of nondilated abdominal aorta PELVIC VISCERA: Unremarkable OSSEOUS STRUCTURES: There are multilevel degenerative changes in lumbar spine and levoscoliosis. CT/CT chest w IV con IMPRESSION: 1. Masslike consolidation in the right lower lobe and consolidation in the right middle lobe. 2. Small left-sided pleural effusion and pleural thickening. 3. Most likely pulmonary hypertension. 4. Constipation. 5. Left adrenal gland mass most likely adenoma. 6. Small lesions in the liver most likely hemangioma or cyst. Dictated By: Heather Wyman MD Signed By: <Electronically signed by Heather Wyman MD in OV> 07/30/23 3172 Assessment & Plan Assessment & Plan (1) Pneumonia: Code(s): J18.9 - Pneumonia, unspecified organism (2) Shortness of breath: Code(s): R06.02 - Shortness of breath (3) COPD (chronic obstructive pulmonary disease): Code(s): J44.9 - Chronic obstructive pulmonary disease, unspecified Plan Advised patient to continue Trelegy and will send in levalbuterol to use PRN. Reviewed chest CT and will need a follow up CT, which has reportedly already been scheduled through [facility] to monitor the RML. Will further discuss with Dr. Alfaro if any additional treatment is needed at this time. From a respiratory stance patient reports feeling back to baseline, however findings on chest CT need close follow up. Will obtain chest CT from [facility] once performed. Patient states this is scheduled for next month. She is aware if symptoms return to call the office or worsen to seek emergent care. All questions were answered and patient is in agreement of plan. Will follow up with Dr. Alfaro for her regularly scheduled appointment or sooner if needed. Medications: New levalbuterol tartrate 45 mcg/actuation 1 puff inhalation Q4-6H PRN 15 grams 3RF shortness of breath Coding Level of Care Code Est Pt Level 4 (84890) Diagnoses Pneumonia J18.9 Shortness of breath R06.02 Chronic obstructive pulmonary disease, unspecified COPD type J44.9
== END 2023-08-07 12:00 | disposition home or self-care (01) ==
PROVIDERS: PCP Internal Medicine; Visit Provider Nurse Practitioner Family
DX: J18.9 Pneumonia, unspecified organism (principal); R06.02 Shortness of breath; J44.9 Chronic obstructive pulmonary disease, unspecified
CPT/HCPCS: 99214

== ENCOUNTER → 2023-08-07 11:03 | Outpatient (BNVA) | payer MEDICARE, OTHER, SELFPAY | PROVIDERS: PCP Internal Medicine; Visit Provider Nurse Practitioner Family | DX: J18.9 Pneumonia, unspecified organism (principal); R06.02 Shortness of breath; J44.9 Chronic obstructive pulmonary disease, unspecified; Z79.899 Other long term (current) drug therapy | CPT/HCPCS: 99212 ==

== ENCOUNTER 2023-09-26 13:05 | Outpatient (AMB) | payer MEDICARE, OTHER, SELFPAY ==
[2023-09-26 13:16] VITALS: PULSE 67; O2SAT 96; BMI 21.2
--- NOTE | 2023-09-26 13:16 | MHC.OFFVIS ---
Intake Vital Signs 09/26/23 13:16 Height 5 ft 1 in Weight 112 lb BMI 21.2 Pulse 67 Pulse Source Pulse Oximeter Pulse Oximetry (%) 96 Oxygen Delivery Method Room Air Comment 2 Liters Oxygen([employer]) Intake Visit Reasons: copd [employer] Required: No Allergies cimetidine [From TAGAMET] Allergy (Mild, Verified 09/26/23 13:18) HEADACHES lisinopril [LISINOPRIL] Allergy (Mild, Verified 09/26/23 13:18) COUGH phenytoin [Dilantin] Allergy (Unknown, Verified 09/26/23 13:18) rash hydrochlorothiazide Adverse Reaction (Verified 09/26/23 13:18) Shortness of Breath HPI HPI Comments History of Present Illness Details The patient is an 88-year-old woman with a known history of colon cancer status post resection many years ago, chronic anemia currently on Procrit and congestive heart failure. She had been complaining of worsening shortness of breath. Further workup included a chest x-ray demonstrating some interstitial abnormalities. Therefore she was referred to undergo a CT scan of the chest. The CT scan demonstrated some nodular densities in therefore she was referred to Pulmonary. I personally reviewed the CT scan myself. She does have evidence of bronchitis in addition to this elongated tubular density in the right middle lobe area. In the ED may be within the airway itself. The patient also did have a CT scan of the chest back in 2019 which I also personally reviewed. Unfortunately, technique was suboptimal and there was a lot of motion artifact. But it appears that the nodular density may have been there she is unclear as far as the size in the size. We talked about other potential etiologies that this could be such as mucous plugging smoldering infections. The patient be provided with an Acapella valve and she is going to work on chest physical therapy. Will try to also get a sputum culture for AFB to rule out non tuberculosis mycobacterial infections that can cause Nodular densities in the lungs. The patient continue perform her chest PT and will plan to repeat the CT scan in March with the hope that the nodular density has subsided. 05/01/2022 the patient is here for a pulmonary follow-up visit. The patient has been complaining of worsening dyspnea on exertion. Moderate severity. the patient also complains of shortness of breath even at rest although worse with activity. This is limiting her activities of daily living. Back in February he was evaluated in the ER with chest discomfort. There, she did undergo a CTA that ruled out pulmonary emboli. However, again we were able to visualize the right sided pulmonary nodule. Difficult to compared to her previous 1 from November 2021 although it looks slightly larger in size. Therefore based on the size greater than a cm I will go ahead and order a PET scan. The patient is also status post a thyroid biopsy which was consistent with normal thyroid parenchyma. Although as far as the accuracy of the biopsies she will follow up with Endocrinology. Patient also has some evidence of emphysema on the CT scan. Because of her shortness of breath we did taken for 6 minutes walk test. The patient in the qualifies for oxygen supplementation with activity. She did better with the continues low then the conserving valve. Will go ahead and start her on oxygen at this time. at least this will provide her some relief while waiting for her other result. We will also maximize her respiratory therapy By placing her on Trelegy. 05/28/2022 the patient is here for a pulmonary follow-up visit. Overall the patient continues to have dyspnea on exertion although a little better. She is responding well to the oxygen. Although is very hard for her to carry the Contin[employer] oxygen because the tanks are too heavy and they. We did undergo a 6 minute oximetry test in the office. We did use the portable oxygen concentrator. The patient did better and she was able to maintain a pulse ox of 92% 3 L pulse. Therefore will try to get her small conserving device in order for her to have a easier time carrying it. Will submit a prescription to her [employer]. Patient also underwent a PET scan to further address the right lower lobe pulmonary nodule. The PET scan did demonstrate an elevated FDG activity of 3.1 and appears to be a solitary PET avid nodular density which is concerning for malignancy. The patient is already on oxygen and explained to her that removing any lung tissue to remove the nodular density will resulting worsening gas exchange. Therefore the best option would be to biopsy this nodular density to assess for any the evidence of malignancy. If there is evidence of malignancy we can discuss the case during tumor conference but the patient may be a good candidate for stereotactic radiation in addition to other potential chemotherapeutic or immune mediated therapies. But 1st will request a biopsy in order to better understand this process. 06/21/2022 the patient is here for a pulmonary follow-up visit. He was supposed to follow up with the biopsy results although she has not had a biopsy just yet. She is scheduled to have a next week. Therefore, once I have the biopsy results I will call her on the phone to give her the results. We did talk about the procedure. She needs to have blood work prior to the procedure which she will have today. In addition to that she will be NPO after midnight on the day of the procedure. Her blood pressures have been high in therefore I explained to the patient that she should continue taking her medications with a sip of water to minimize further elevation of her blood pressure on the day of the procedure. She continues use the oxygen with good effect. She continues use her respiratory therapy, Trelegy with good effect as well. She has not required her rescue inhaler. 08/22/2022 the patient is here for pulmonary follow-up visit. She is still on a hard time with the issue with the biopsy. She did undergo the biopsy and demonstrated no evidence of any malignancy which is reassuring. Although it did have some atypical cells suggestive of reactive macrophages. Although malignancy cannot completely be ruled out with CT guided biopsies. The only definitive way of doing it will be with surgical biopsy. Unfortunately, her PFTs demonstrate a severe decrease in the DLCO in any kind of lung resection would be difficult for the patient to tolerate. She is already on oxygen. Clinically the patient is doing okay from a breathing standpoint. She continues her respiratory therapy. I do agree that repeating her CT scan in 6 weeks will be important to make sure that we follow this pulmonary nodule that was positive in her PET scan. If the nodules any larger and is progressing then we will discuss considering another CT-guided biopsy or talking to the radiation oncologist regarding possibility of stereotactic radiation. The patient is also having hard time sleeping. We did talk about different agents to use. I do believe that trazodone will be effective in helping her sleep. She will try for now. 10/24/2022 the patient is here for a pulmonary follow-up visit. The patient had a recent CT scan of the chest to be which we personally reviewed. It appears that the right-sided pulmonary nodule is enlarging from 1.7 to 1.9 cm in size. This is concerning. We know that this is an avid nodule. At least based on the CT scan from April it was a solitary nodule without any evidence of any spread. Still because her lung capacity she cannot tolerate surgery. Her initial biopsy was nondiagnostic. She either needs to have a repeat biopsy undergo stereotactic radiation without a biopsy. Will go ahead and plan to perform a biopsy in addition to that will% or a tumor conference to see people feel compelled about avoiding biopsy in going right to stereotactic radiation. She does have an oncologist to follow her closely so therefore will have her involving that discussion as well. From a respiratory status the patient is doing well on the oxygen. She does have very limited pulmonary reserve. 01/21/2023 the patient is here for pulmonary follow-up visit. The patient did complete her stereotactic radiation for her pulmonary nodule. She did tolerated therapy well. Although she has been having increasing shortness of breath. Apparently with activity. Moderate severity. She is using her oxygen. Patient is coughing more but denies any significant chest congestion. On examination she does have additional crackles on that left hemithorax. Therefore she is likely developing some radiation pneumonitis in that area. The patient is agreeable in taking a small dose of prednisone to try to minimize the inflammatory changes that occurs after having such therapy. 03/26/2023 the patient is here for pulmonary follow-up visit. Since we last spoke she developed worsening shortness of breath and weakness. She was evaluated at the [facility] ER where she had a chest x-ray demonstrating increased hazy opacity in the right mid lung zone. The patient was started on antibiotics. She was also given additional diuresis and prednisone. Her oxygen requirements improved and the patient was discharged. Now she is feeling better. She still recovering still feels tired. Her respiratory exam actually sounds better. no further evidence of crackles. She already completed the prednisone. The patient also followed up with Cardiology. She is continued on diuresis. She is monitoring her daily weight. She will undergo a chest x-ray today to follow-up for recent pneumonia. She will also need additional imaging studies follow-up with the pulmonary nodule that is status post stereotactic radiation. 09/26/2023 the patient is here for a pulmonary follow-up visit. She has been having worsening respiratory symptoms. Complains of shortness of breath even at rest. Moderate severity. Also complains of cough. Denies any chest pain. She was taken off her diuretic for an unclear reason. In the meantime the patient does demonstrating increasing shortness of breath along with lower extremity edema. We did review her CT scan of the chest from [facility] demonstrating masslike consolidation. She was treated for pneumonia. Will go ahead and give her additional antibiotics at this time because she feels that she is coughing more. Will plan to repeat the CT scan in 6-8 weeks to make sure that there is resolution of the airspace disease. Although it still malignancy is in the differential. She has been using the oxygen with good effect. Although she states that she has been having to use the oxygen more often. [facility] Medical History (HFpEF) heart failure with preserved ejection fraction Osteopenia (~2001) History of colon cancer (~2002) Insomnia COPD (chronic obstructive pulmonary disease) Multinodular thyroid CHF (congestive heart failure) Rheumatic fever Subarachnoid bleed High cholesterol GERD (gastroesophageal reflux disease) HTN (hypertension) Surgical History History of bone marrow biopsy History of colonoscopy History of hemicolectomy History of tonsillectomy S/P thyroid biopsy History of lung biopsy History of appendectomy Family History Father Colon cancer Paternal Aunt Colon cancer Sister Breast cancer Social History Household Members: Spouse Housing: House Are you a primary cardiac care unit nurse to a significant other at home: No Do you presently have visiting nurse or other home services: No Alcohol intake: former Comment: sleeping Patient Tobacco Use Status: Former Tobacco user Quit Date: 1979 Smoked: 20 +/- Use of substances other than those prescribed or required for medical reasons: No Have you been hit, kicked, punched, or otherwise hurt by someone within the past year? If so, by whom?: No Do you feel safe in your current relationship?: Yes Advance Directives Date on File: 08/20/22 Do you have thoughts of harming others: None Do you have a plan to hurt others: No Plan Do you have the means to hurt others: No Recently lost weight without trying: No Eating poorly because of decreased appetite: Yes Patient : No service: No Current occupational status: retired Review of Systems Const Reports difficulty sleeping, Denies excessive sweating, Denies fatigue, Denies headache(s), Denies weight gain and Denies weight loss Eyes Denies blurry vision and Denies diplopia ENT Denies change in voice, Denies dysphagia, Denies headache(s) and Denies hoarseness Card Denies chest pain, Denies irregular heart rhythm, Reports dyspnea on exertion and Reports other Resp Reports cough and Reports dyspnea on exertion GI Denies abdominal pain, Denies change in bowel habits, Denies dysphagia, Denies diarrhea and Denies nausea Musc Denies myalgias, Denies muscle cramps, Denies numbness and Denies tingling Skin/Breast Denies hirsutism and Denies alopecia Neuro Denies headache(s), Denies numbness and Denies tingling Psych Denies anxiety and Denies depression Endo Denies cold intolerance, Denies excessive sweating, Denies fatigue and Denies heat intolerance Masoud/Lymph Denies easy bruising Physical Exam Vital Signs: Last Vital Signs Pulse 67 09/26/23 13:16 Pulse Ox 96 09/26/23 13:16 Oxygen Delivery Method Room Air 09/26/23 13:16 BMI result Body Mass Index 21.2 Const General: alert and tired appearing Nutritional Appearance: underweight Orientation/consciousness: patient oriented x3 HEENT Head: Yes normocephalic Eyes General: appearance normal, both eyes and all related structures Neck Neck: Yes normal visual inspection Resp Effort & Inspection: normal respiratory effort and not labored Auscultation: no crackles, no rales, no rhonchi, no wheezes and diminished lung sounds Cardio Rate: regular rate Rhythm: regular rhythm Heart sounds: S1 normal heart sound present and S2 normal heart sound present GI Auscultation: normal bowel sounds Skin General skin exam: no rashes or lesions noted Neuro General: patient oriented x3 Extrem General: Yes normal to inspection and No edema Assessment & Plan Assessment & Plan (1) Pneumonia: Code(s): J18.9 - Pneumonia, unspecified organism Qualifiers: Pneumonia type: due to unspecified organism Laterality: unspecified laterality Lung location: unspecified part of lung Qualified Code(s): J18.9 - Pneumonia, unspecified organism (2) Chronic bronchitis: Code(s): J42 - Unspecified chronic bronchitis Qualifiers: Chronic bronchitis type: simple Qualified Code(s): J41.0 - Simple chronic bronchitis (3) Shortness of breath: Code(s): R06.02 - Shortness of breath (4) COPD (chronic obstructive pulmonary disease): Code(s): J44.9 - Chronic obstructive pulmonary disease, unspecified Qualifiers: COPD type: chronic bronchitis Chronic bronchitis type: simple Qualified Code(s): J41.0 - Simple chronic bronchitis (5) Insomnia: Code(s): G47.00 - Insomnia, unspecified Qualifiers: Insomnia type: primary Qualified Code(s): F51.01 - Primary insomnia (6) Radiation pneumonitis: Code(s): J70.0 - Acute pulmonary manifestations due to radiation (7) CHF (congestive heart failure): Code(s): I50.9 - Heart failure, unspecified Qualifiers: Heart failure chronicity: acute on chronic Heart failure type: systolic Qualified Code(s): I50.23 - Acute on chronic systolic (congestive) heart failure Plan continue oxygen supplementation to keep pox 90-96%. B cylinders with 3l/pulse conserving valve continue Trelegy inhaler Trazadone for sleep bloodwork CT chest in 6-8 weeks Zpack diuresis as tolerated F/U 2 months Orders: Orders B Type Natriuretic Peptide 09/26/23 I50.9 - Heart failure, unspecified, R07.9 - Chest pain, unspecified Erythrocyte Sedimentation Rate 09/26/23 I50.9 - Heart failure, unspecified, R07.9 - Chest pain, unspecified CT chest wo IV con 8 Weeks R91.8 - Other nonspecific abnormal finding of lung field Troponin-I High Sensitivity 09/26/23 I50.9 - Heart failure, unspecified, R07.9 - Chest pain, unspecified Medications: New azithromycin 500 mg PO DAILY 5 days 5 tabs 0RF Changed From trazodone Take 1 hour before sleep 100 mg (2 x 50 mg) PO BEDTIME 30 days 60 tabs 11RF To trazodone Take 1 hour before sleep 50 mg PO BEDTIME 30 days 30 tabs 11RF Coding Level of Care Code Est Pt Level 4 (16423) Diagnoses Pneumonia due to infectious organism, unspecified laterality, unspecified part of lung J18.9 Pneumonia type: due to unspecified organism Laterality: unspecified laterality Lung location: unspecified part of lung Simple chronic bronchitis J41.0 Chronic bronchitis type: simple Shortness of breath R06.02 Simple chronic bronchitis J41.0 COPD type: chronic bronchitis Chronic bronchitis type: simple Primary insomnia F51.01 Insomnia type: primary Radiation pneumonitis J70.0 Acute on chronic systolic congestive heart failure I50.23 Heart failure chronicity: acute on chronic Heart failure type: systolic Time Spent (min) 18
== END 2023-09-26 13:44 | disposition home or self-care (01) ==
PROVIDERS: PCP Internal Medicine; Visit Provider Hospitalist
DX: J41.0 Simple chronic bronchitis (principal); J18.9 Pneumonia, unspecified organism; F51.01 Primary insomnia; I50.23 Acute on chronic systolic (congestive) heart failure
CPT/HCPCS: 99214

== ENCOUNTER 2023-09-26 13:05 | Outpatient (REF) | payer MEDICARE, OTHER, SELFPAY ==
[2023-09-26 15:02] LABS: Erythrocyte Sedimentation Rate 90 MM/HR (0-20)
[2023-09-26 15:05] LABS: B Type Natriuretic Peptide 297 pg/mL (<100)
[2023-09-26 15:06] LABS: Troponin-I High Sensitivity 3.1 ng/L (<3.5-17.0)
== END 2023-09-26 13:06 | disposition home or self-care (01) ==
LOC: HO.LAB 13:05
PROVIDERS: PCP Internal Medicine; Visit Provider Hospitalist
DX: R07.9 Chest pain, unspecified (principal); I50.9 Heart failure, unspecified; J18.9 Pneumonia, unspecified organism
CPT/HCPCS: 36415; 83880; 84484; 85652; 99212

== ENCOUNTER 2023-09-30 13:30 | Outpatient (AMB) | payer MEDICARE, OTHER, SELFPAY ==
--- NOTE | 2023-09-30 13:32 | A.OFFVIS_ITS ---
Intake Vital Signs 09/30/23 13:33 Height 5 ft 1 in Weight 118 lb 2.684 oz BMI 22.3 BP 120/42 L Blood Pressure Location Lt brachial Position Sitting Pulse 63 Pulse Source Pulse Oximeter Intake Visit Reasons: 3 mth fu bp (KM) Allergies cimetidine [From TAGAMET] Allergy (Mild, Verified 09/30/23 13:37) HEADACHES lisinopril [LISINOPRIL] Allergy (Mild, Verified 09/30/23 13:37) COUGH phenytoin [Dilantin] Allergy (Unknown, Verified 09/30/23 13:37) rash hydrochlorothiazide Adverse Reaction (Verified 09/30/23 13:37) Shortness of Breath Medication List - Last Reconciled 09/30/23 by GEOVANY Laguerre ascorbic acid (vitamin C) 500 mg PO DAILY@1800 azithromycin 500 mg PO DAILY 5 days carvedilol 3.125 mg See Protocol PO DAILY@0900,1800 cholecalciferol (vitamin D3) 50 mcg PO DAILY@1800 docusate sodium (Colace) 100 mg PO BID ferrous sulfate 325 mg PO DAILY@1800 [id number] 100-62.5-25 mcg (Trelegy Ellipta) 1 ea inhalation DAILY hydralazine 50 mg PO TID multivitamin 1 tab PO DAILY nifedipine ER 60 mg PO BID olmesartan 40 mg PO DAILY omeprazole 40 mg PO DAILY@0630 Oxygen Home Use As directed simvastatin 40 mg PO BEDTIME trazodone 50 mg PO BEDTIME 30 days HPI 3 mth fu bp (KM) HPI Details Tita is an 88-year-old female with past medical history of hypertension, hyperlipidemia, COPD, diastolic heart failure who presents for follow-up. Today she reports that she has been doing generally well. She is chronic shortness of breath with activity and wears her oxygen with nasal cannula. She will notice some mild ache in her left chest at times when she is laying in bed. No chest discomfort with activity. No shortness of breath when laying down, PND, orthopnea or edema. No palpitations, lightheadedness, presyncope, syncope, falls. She does light physical activity. Takes her meds as directed. Home blood pressures have been running good with systolic ranging mostly between 110 and 120s. FOR[facility]LY [facility] Medical History (HFpEF) heart failure with preserved ejection fraction Osteopenia (~2001) History of colon cancer (~2002) Insomnia COPD (chronic obstructive pulmonary disease) Multinodular thyroid CHF (congestive heart failure) Rheumatic fever Subarachnoid bleed High cholesterol GERD (gastroesophageal reflux disease) HTN (hypertension) Surgical History History of bone marrow biopsy History of colonoscopy History of hemicolectomy History of tonsillectomy S/P thyroid biopsy History of lung biopsy History of appendectomy Family History Father Colon cancer Paternal Aunt Colon cancer Sister Breast cancer Social History Household Members: Spouse Housing: House Are you a primary health care administrator to a significant other at home: No Do you presently have visiting nurse or other home services: No Alcohol intake: former Comment: sleeping Patient Tobacco Use Status: Former Tobacco user Quit Date: 1979 Smoked: 20 +/- Advance Directives Date on File: 08/20/22 service: No Current occupational status: retired Review of Systems Const All systems reviewed & are unremarkable except as noted in HPI and below ENT Denies dizziness Card Details: left chest ache when she lays in bed and on left side Denies chest pain, Denies chest pain at rest, Denies chest pain with activity, Denies rapid heart rate, Denies pedal edema, Denies edema, Denies leg edema, Denies lightheadedness, Denies palpitations, Reports dyspnea, Reports dyspnea on exertion and Denies orthopnea Resp Denies cough, Reports dyspnea and Reports dyspnea on exertion GI Denies hematochezia and Denies change in stool character Musc Denies abnormal gait, Denies limited range of motion, Denies muscle cramps, Denies muscle weakness, Denies numbness, Denies radiating pain into limb, Denies stiffness and Denies tingling Neuro Denies abnormal gait, Denies dizziness, Denies numbness and Denies tingling Endo Denies palpitations Physical Exam Vital Signs: Last Vital Signs Pulse 63 09/30/23 13:33 BP 120/42 L 09/30/23 13:33 BMI result Body Mass Index 22.3 Const General: cooperative, healthy appearing, comfortable and no acute distress Orientation/consciousness: patient oriented x3 Neck Neck: Yes normal visual inspection and Yes no JVD Resp Other: Wearing O2 with nasal cannula. noted to be sob after walking Auscultation: clear to auscultation bilaterally, no rales, no rhonchi and no wheezes Cardio Jugular venous distension: no JVD Rate: regular rate Rhythm: regular rhythm Heart sounds: S1 normal heart sound present, S2 normal heart sound present, no murmurs and no rubs Neuro General: patient oriented x3 Extrem General: Yes normal to inspection, No no pedal edema and No calf tenderness Psych Appearance: grossly normal Mental Status: mental status grossly normal Speech and movement: Normal speech and movement present Assessment & Plan Assessment & Plan (1) CHF (congestive heart failure): Code(s): I50.9 - Heart failure, unspecified Qualifiers: Heart failure chronicity: acute on chronic Heart failure type: systolic Qualified Code(s): I50.23 - Acute on chronic systolic (congestive) heart failure Plan: History of heart failure with preserved EF. Last echocardiogram done 09/29/2021 showed EF 60-65%, impaired relaxation, early aortic stenosis. EKG done 07/30/2023 shows sinus rhythm with LVH, rate 69. She has COPD and wears oxygen with nasal cannula. She reports chronic shortness of breath with activity. She does not appear fluid overloaded on examination. She does not take routine diuretics. Spent time reviewing signs and symptoms of heart failure with her. She monitors her weight routinely at home. Instructed to call with any concerning symptoms. Cardiology follow-up 6 months, sooner if needed. (2) COPD (chronic obstructive pulmonary disease): Code(s): J44.9 - Chronic obstructive pulmonary disease, unspecified Qualifiers: COPD type: chronic bronchitis Chronic bronchitis type: simple Qualified Code(s): J41.0 - Simple chronic bronchitis Plan: As above (3) HTN (hypertension): Code(s): I10 - Essential (primary) hypertension Plan: Elevated last visit and her nifedipine dose was increased to 60 mg b.i.d.. Blood pressure normal today at 120/42. Home blood pressures frequently running between 110 and 120 systolic. She did have 1 reading as low as 99 systolic. Informed her to keep an eye on blood pressure readings. If blood pressure running below 105 systolic consistently then to reduce nifedipine back to once daily. Continue hydralazine, carvedilol, olmesartan. Labs done 09/26/2023 showed potassium 4, creatinine 0.86. Low-salt diet reviewed. (4) Chest pain: Code(s): R07.9 - Chest pain, unspecified Plan: Vague report of an ache along her left chest and side when she lays in bed and lays on her left side. No exertional chest discomfort. No chest discomfort at other times. No concern at present that this is cardiac symptom. More likely chest wall in nature. She tells me that her direct chill caster has recently done blood work. As he a troponin level from 09/26/2023 which was normal, BNP 297 which is similar to her prior numbers. 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
[2023-09-30 13:33] VITALS: BP 120/42; PULSE 63; BMI 22.3
== END 2023-09-30 14:16 | disposition home or self-care (01) ==
PROVIDERS: PCP Internal Medicine; Visit Provider Nurse Practitioner Family
DX: I50.23 Acute on chronic systolic (congestive) heart failure (principal); J41.0 Simple chronic bronchitis; I10 Essential (primary) hypertension; R07.9 Chest pain, unspecified
CPT/HCPCS: 99214

== ENCOUNTER → 2023-09-30 13:30 | Outpatient (BNVA) | payer MEDICARE, OTHER, SELFPAY | PROVIDERS: PCP Internal Medicine; Visit Provider Nurse Practitioner Family | DX: I11.0 Hypertensive heart disease with heart failure (principal); I50.23 Acute on chronic systolic (congestive) heart failure; J41.0 Simple chronic bronchitis; R07.9 Chest pain, unspecified | CPT/HCPCS: 99212 ==

== ENCOUNTER 2023-10-16 15:24 | Outpatient (AMB) | payer MEDICARE, OTHER, SELFPAY ==
[2023-10-16 15:27] VITALS: BP 176/78; PULSE 76; BMI 21.8
--- NOTE | 2023-10-16 15:27 | A.OFFVIS_ITS ---
Intake Vital Signs 10/16/23 15:27 Height 5 ft 1 in Weight 115 lb 8.356 oz BMI 21.8 BP 176/78 H Blood Pressure Location Lt brachial Position Sitting Pulse 76 Pulse Source Pulse Oximeter Intake Visit Reasons: thyroid-confirmed Intake Note: Patient present today for multinodular thyroid follow up visit. 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 She was complaining of an occasional sensation of dysphagia with a firm mass in her neck. She then underwent a thyroid US 11/30/2021 which was read as revealing a multinodular thyroid. She was subsequently referred to Endocrinology. She underwent FNA biposy by me 03/21/2022 of a left lower pole 3.0 cm thyroid nodule, with nondiagnostic cytology. She does report occasional dysphagia, and the occasional sensation of pressure in her neck when lying flat. She otherwise denies any compressive symptoms and reports no symptoms of hyper or hypothyroidism. She denies any personal history of head or neck irradiation. She denies a family history of thyroid cancer, though her Mother and Sister both had benign thyroid nodules. Thyroid US: 11/30/2021 Right Thyroid Lobe: 5.4 x 1.9 x 1.6 cm, volume 8.8 mL. Parenchyma: The gland echotexture is heterogeneous. Thyroid vascularity is increased. Left Thyroid Lobe: 5.0 x 1.9 x 2.2 cm, volume 10.9 mL. Parenchyma: The gland echotexture is heterogeneous. Thyroid vascularity is increased. Isthmus: 0.5 cm in maximum AP dimension. Estimated total number of nodules greater than or equal to 1 cm: 1. Card Mounter nodules are described as follows: 1. Location: Right inferior. ?? ? Size: 0.9 x 0.7 x 0.9 cm, volume 0.3 mL. ?? ? Nodule characteristics: ?? ? Composition: Solid/almost completely solid (2). ?? ? Echogenicity: Hyperechoic (1). ?? ? Shape: Not taller than wide (0). ?? ? Margins: Smooth (0). ?? ? Echogenic Foci: None (0). ?? ? ACR TI-RADS total points: 3 ?? ? ACR TI-RADS category: 3 2. Location: Left inferior. ?? ? Size: 1.9 x 1.9 x 2.1 cm, volume 3.9 mL. ?? ? Nodule characteristics: ?? ? Composition: Solid/almost completely solid (2). ?? ? Echogenicity: Hypoechoic (2). ?? ? Shape: Not taller than wide (0). ?? ? Margins: Irregular (2). ?? ? Echogenic Foci: None (0). ?? ? ACR TI-RADS total points: 6 ?? ? ACR TI-RADS category: 4 NODES: No lymphadenopathy is seen in the tissue surrounding the thyroid gland. Labs: Laboratory Tests 08/16/22 08:57 TSH 2.96 Free T4 1.05 Status post FNA of left inferior nodule in 2021 with inadequate cytology REPLACED BY [facility] Medical History (HFpEF) heart failure with preserved ejection fraction Osteopenia (~2001) History of colon cancer (~2002) Insomnia COPD (chronic obstructive pulmonary disease) Multinodular thyroid CHF (congestive heart failure) Rheumatic fever Subarachnoid bleed High cholesterol GERD (gastroesophageal reflux disease) HTN (hypertension) Surgical History History of bone marrow biopsy History of colonoscopy History of hemicolectomy History of tonsillectomy S/P thyroid biopsy History of lung biopsy History of appendectomy Family History Father Colon cancer Paternal Aunt Colon cancer Sister Breast cancer Social History Household Members: Spouse Housing: House Are you a primary workforce investment act career manager to a significant other at home: No Do you presently have visiting nurse or other home services: No Alcohol intake: former Comment: sleeping Patient Tobacco Use Status: Former Tobacco user Quit Date: 1979 Smoked: 20 +/- Advance Directives Date on File: 08/20/22 service: No Current occupational status: retired Physical Exam Vital Signs: Last Vital Signs Pulse 76 10/16/23 15:27 BP 176/78 H 10/16/23 15:27 BMI result Body Mass Index 21.8 Const Other: Thyroid gland is increase in size weighs about 25 g. There are no discrete nodules palpated Assessment & Plan Assessment & Plan (1) Multinodular thyroid: Code(s): E04.2 - Nontoxic multinodular goiter Plan: This is a 88-year-old white female with history of multinodular goiter status post FNA x2 of left thyroid nodule with nondiagnostic cytology. Patient appears to be clinically and biochemically euthyroid. . Assuming normal will discuss options with the patient including following with serial ultrasounds versus reaspiration for 3rd time versus lobectomy. After a careful discussion with the patient considering her age and comorbidities, it was decided no further intervention should be given to the thyroid nodule. Patient returned to the care of her primary care provider. There is no need to we ultrasound of the thyroid unless patient becomes symptomatic from the nodule. Coding Level of Care Code Est Pt Level 3 (16532) Diagnoses Multinodular thyroid E04.2
== END 2023-10-16 16:13 | disposition home or self-care (01) ==
PROVIDERS: PCP Internal Medicine; Visit Provider Internal Medicine Endocrinology, Diabetes & Metabolism
DX: E04.2 Nontoxic multinodular goiter (principal)
CPT/HCPCS: 99213

== ENCOUNTER → 2023-10-16 15:24 | Outpatient (BNVA) | payer MEDICARE, OTHER, SELFPAY | PROVIDERS: PCP Internal Medicine; Visit Provider Internal Medicine Endocrinology, Diabetes & Metabolism | DX: E04.2 Nontoxic multinodular goiter (principal) | CPT/HCPCS: 99212 ==

== ENCOUNTER 2023-11-07 13:18 | Outpatient (REF) | payer MEDICARE, OTHER, SELFPAY | END 2023-11-07 13:19 | disposition home or self-care (01) | LOC: HO.LAB 13:18 | PROVIDERS: PCP Internal Medicine; Visit Provider Nurse Practitioner Family | DX: Z13.89 Encounter for screening for other disorder (principal) ==

== ENCOUNTER 2023-11-15 11:59 | Emergency (ER) | payer MEDICARE, OTHER, SELFPAY ==
[2023-11-15 12:32] VITALS: BP 127/49; PULSE 65; RESP 18; TEMP 36.4; O2SAT 96; BMI 20.8
--- NOTE | 2023-11-15 12:48 | ED_ITS ---
HPI - General Adult General Chief complaint: Upper Respiratory Symptoms Stated complaint: SOB COVID POS Time Seen by Provider: 11/15/23 12:31 Source: patient Mode of arrival: EMS History of Present Illness HPI narrative: 88-year-old female who arrives via EMS and expresses significant irritation stating that she called her primary care doctor in the hopes of getting the medication for her COVID that her family's had gotten and he instructed her to follow-up at the emergency room. Patient is very upset and is asking to go home because she needs to care for her who also has COVID and she wants to take care of him. She denies any shortness of breath or chest pain and states that she is eating and drinking without difficulty. Related Data Home Medications ?Medication ?Instructions ?Recorded ?Confirmed cholecalciferol (vitamin D3) 50 50 mcg PO DAILY@1800 06/14/20 09/30/23 mcg (2,000 unit) tablet ferrous sulfate 325 mg (65 mg 325 mg PO DAILY@1800 06/14/20 09/30/23 iron) tablet multivitamin 1 tab PO DAILY 06/14/20 09/30/23 olmesartan 40 mg tablet 40 mg PO DAILY 06/14/20 09/30/23 omeprazole 40 mg capsule,delayed 40 mg PO DAILY@0630 06/14/20 09/30/23 release simvastatin 40 mg tablet 40 mg PO BEDTIME 06/14/20 09/30/23 ascorbic acid (vitamin C) 500 mg 500 mg PO DAILY@1800 11/29/21 09/30/23 tablet docusate sodium 100 mg capsule 100 mg PO BID 11/29/21 09/30/23 (Colace) carvedilol 3.125 mg tablet 3.125 mg PO DAILY@0900,1800 03/08/22 09/30/23 hydralazine 50 mg tablet 50 mg PO TID 08/22/22 09/30/23 Oxygen Home Use 03/26/23 09/30/23 Previous Rx's ?Medication ?Instructions ?Recorded fluticasone fur. 100 mcg-umeclid 1 ea inhalation DAILY #60 ea 05/13/23 62.5 mcg-vilant 25 mcg inhalat.powder (Trelegy Ellipta) nifedipine 60 mg tablet,extended 60 mg PO BID #120 tabs 06/19/23 release trazodone 50 mg tablet 50 mg PO BEDTIME 30 days #30 tabs 09/26/23 Allergies Allergy/AdvReac Type Severity Reaction Status Date / Time cimetidine [From TAGAMET] Allergy Mild HEADACHES Verified 11/15/23 12:34 lisinopril [LISINOPRIL] Allergy Mild COUGH Verified 11/15/23 12:34 phenytoin [Dilantin] Allergy Unknown rash Verified 11/15/23 12:34 hydrochlorothiazide AdvReac Shortness Verified 11/15/23 12:34 of Breath Review of Systems Review of Systems: Pertinent positives and negatives as stated in [facility] Past Medical History Source: nursing notes reviewed Medical History (HFpEF) heart failure with preserved ejection fraction Osteopenia (~2001) History of colon cancer (~2002) Insomnia COPD (chronic obstructive pulmonary disease) Multinodular thyroid CHF (congestive heart failure) Rheumatic fever Subarachnoid bleed High cholesterol GERD (gastroesophageal reflux disease) HTN (hypertension) Surgical History History of bone marrow biopsy History of colonoscopy History of hemicolectomy History of tonsillectomy S/P thyroid biopsy History of lung biopsy History of appendectomy Family History Family History Father Colon cancer Paternal Aunt Colon cancer Sister Breast cancer Social History Social History Household Members: Spouse Housing: House Are you a primary chronic care nurse to a significant other at home: No Do you presently have visiting nurse or other home services: No Alcohol intake: former Comment: sleeping Patient Tobacco Use Status: Former Tobacco user Quit Date: 1979 Smoked: 20 +/- Advance Directives: Yes Advance Directives on File: Yes Advance Directives Date on File: 08/20/22 service: No Current occupational status: retired Physical Exam ED Vital Signs: Vital Signs - 24 hr 11/15/23 12:32 Temperature 97.5 F Pulse Rate 65 Respiratory Rate 18 Blood Pressure 127/49 L Pulse Oximetry 96 Oxygen Delivery Method Room Air BMI result Body Mass Index 20.8 VITAL SIGNS: Reviewed. GENERAL: Well developed, well nourished, in no acute distress. HEAD: Normocephalic/atraumatic EYES: PERRLA, EOMI EARS: Ext canals without abnormality, TMs non-bulging and non-erythematous NOSE: Nares patent bilateral OROPHARYNX: no oral lesions noted, posterior pharynx clear and non-erythematous without noted tonsillar enlargement/erythema/exudates NECK: Supple, no adenopathy LUNGS: Normal breath sounds. No adventitious sounds or accessory muscle use. SpO2<96> CARDIOVASCULAR: Regular rate and rhythm without noted murmurs, no JVD or lower extremity edema. ABDOMEN: Soft, non-tender, non-distended with bowel sounds. MUSCULOSKELETAL: No tenderness, deformities, or effusions noted on gross inspection. EXTREMITIES: No cyanosis, clubbing or edema. SKIN: Inspection of the skin reveals no rashes NEUROLOGIC: Alert and oriented x 4. Strength and sensation to light touch were grossly intact x 4. Medical Decision Making Medical Decision Making MDM Narrative: 88-year-old female with history and clinical presentation of viral syndrome and being COVID-19 positive. She does not wish for any further evaluation or checkup, on my assessment she is not noted to be tachycardic, tachypneic nor is she hypoxic. Patient is otherwise discharged back to home and transportation was provided to her. Differential Diagnosis Differential Diagnoses: The differential diagnosis associated with the presentation includes Please see the discussion above Admission/Observation Consideration of admission/observation: Escalation of care including admission/observation considered Please see the discussion above External Record Review External record reviewed: Outpatient record and Prior outpatient labs Discharge Plan Discharge Clinical Impression: Viral syndrome, Lab test positive for detection of COVID-19 virus Patient Disposition: Home, Self-Care Instructions: Viral Syndrome (ED), COVID-19 (Coronavirus Disease 2019) (ED) Additional Instructions: Follow-up with your primary care doctor. Return to the ER if you develop any worsening symptoms. Prescriptions: No Action Trelegy Ellipta 100-62.5-25 mcg blister with device 1 ea inhalation DAILY Qty: 60 11RF omeprazole 40 mg capsule,delayed release(DR/EC) 40 mg PO DAILY@0630 simvastatin 40 mg tablet 40 mg PO BEDTIME olmesartan 40 mg tablet 40 mg PO DAILY multivitamin Tablet 1 tab PO DAILY ferrous sulfate 325 mg (65 mg iron) Tablet 325 mg PO DAILY@1800 cholecalciferol (vitamin D3) 50 mcg (2,000 unit) Tablet 50 mcg PO DAILY@1800 ascorbic acid (vitamin C) 500 mg tablet 500 mg PO DAILY@1800 docusate sodium [Colace] 100 mg capsule 100 mg PO BID carvedilol 3.125 mg tablet 3.125 mg PO DAILY@0900,1800 Protocol: Hold for SBP/HR < HOLD for SBP < : 90 HOLD for HR < : 60 hydralazine 50 mg tablet 50 mg PO TID (DME) Oxygen Home Use Kit See Rx Instructions .Route Rx Instructions: As directed nifedipine 60 mg tablet extended release 60 mg PO BID Qty: 120 4RF trazodone 50 mg tablet 50 mg PO BEDTIME 30 Days Qty: 30 11RF Rx Instructions: Take 1 hour before sleep Referrals: Uri Houston MD [Primary Care Provider] - Print Language: German
--- OUTSIDE RECORDS SUMMARY | 2023-11-15 12:57 | XMS_ITS | Patient Health Record ---
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 Name Role Phone Uri Houston MD Primary Care Provider Paul Tejeda [phone] ALLERGIES Allergen (clinical drug ingredient) Drug/Non Drug [...] reflux disease without esophagitis (K21.9) Active confirmed 199369948 Problem Hiatal hernia (K44.9) Active confirmed [id number] Problem Hypertension, unspecified type (I10) Active confirmed [id number] PLAN OF TREATMENT Future Test Test Name Order Date COLONOSCOPY 03/02/2015 Insurance Providers Payer Name Payer Address Payer Phone Subscriber Number Group Number Insured Name Patient Relationship to Insured Coverage Start Date Coverage End Date MEDICARE OF [place] [address] [place] [address] [id number] ZULMA PEREZ Self - patient is the insured [facility] [employer] [address] [place] [address] [id number] ZULMA PEREZ Self - patient is the insured MEDICAL (GENERAL) HISTORY Medical History History ICD Code Colon CA. rese[place] [address] Leila greer, followed by Dr. 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 for polyps Colonoscopy 04/2015--1 small tubular cyrus noma removed Surgical History Surgery Date(Month/Year) Right colectomy in [address] Franco Appy Tonsillectomy and adenoidectomy
[2023-11-15 13:05] VITALS: BP 127/49; PULSE 65; RESP 18; TEMP 36.4; O2SAT 96
== END 2023-11-15 13:06 | disposition home or self-care (01) ==
LOC: HO.ED 12:55
PROVIDERS: Emergency Provider Student in an Organized Health Care Education/Training Program; PCP Internal Medicine
DX: U07.1 COVID-19 (principal); B34.9 Viral infection, unspecified
CPT/HCPCS: 99282; 99283

== ENCOUNTER 2023-11-25 15:59 | Outpatient (REF) | payer MEDICARE, OTHER, SELFPAY ==
--- NOTE | ~2023-11-25 | CT_ITS ---
EXAMINATION: CT CHEST WITHOUT CONTRAST CLINICAL INFORMATION: Abnormal finding of lung field COMPARISON: CT chest, abdomen and pelvis 07/30/2023 TECHNIQUE: Multidetector volumetric CT imaging of the chest was done. Axial MIP volume rendering provided. Sagittal and coronal reformatted images were obtained. This CT examination was performed using dose optimization techniques as appropriate, variously including the following: *Automated exposure control *Adjustment of mA and/or kV according to patient size (this includes techniques or standardized protocols for targeted exams where dose is matched to indication/reason for exam; i.e. extremities or head) *Use of iterative reconstruction technique DLP: 75 mGy-cm FINDINGS: Central airways are patent. Some linear filling defects within the airways are nonspecific but most suggestive of mucus. There are moderate emphysematous changes again noted. Biapical scarring is present. Scattered bilateral subpleural reticular changes are again noted, relatively similar in prominence. Previously present 3.6 cm masslike lesion within the right lower lobe has completely resolved. Some irregular consolidative changes along the right major fissure are stable. Interval development of small subpleural nodular reticular changes within the lateral aspect of the right upper lobe (image 18/59, series 4). Interval resolution of previously present small left-sided pleural effusion. Several previously identified sub-5 mm pulmonary nodules and nodular densities are stable. No new suspicious pulmonary nodules identified. The heart is normal in size. Coronary artery calcifications are present. There is no pericardial effusion. Normal caliber thoracic aorta. Enlarged main pulmonary artery suggesting pulmonary arterial hypertension. A few mildly prominent mediastinal lymph nodes appear similar although evaluation is limited due to lack of IV contrast. The thyroid gland is diffusely hyperdense, nonspecific. No axillary lymphadenopathy bilaterally. Visualized portions of the upper abdomen are grossly unremarkable. Diffuse osteopenia. Moderate degenerative changes of the spine. CT/CT chest wo IV con IMPRESSION: 1. Previously present 3.6 cm masslike lesion within the right lower lobe has completely resolved. 2. Several previously identified sub-5 mm pulmonary nodules and nodular densities are stable. No new suspicious pulmonary nodules identified. 3. Interval development of small subpleural nodular reticular changes within the lateral aspect of the right upper lobe. This is a nonspecific finding but may represent nothing more than atelectasis versus scarring. Attention on follow-up imaging recommended.. Fleischner guidelines were followed.
== END 2023-11-25 16:00 | disposition home or self-care (01) ==
LOC: HO.CT 15:59
PROVIDERS: PCP Internal Medicine; Visit Provider Hospitalist
DX: R91.8 Other nonspecific abnormal finding of lung field (principal)
CPT/HCPCS: 71250

== ENCOUNTER 2023-12-11 10:57 | Outpatient (AMB) | payer MEDICARE, OTHER, SELFPAY ==
[2023-12-11 11:27] VITALS: PULSE 70; O2SAT 94; BMI 21.2
--- NOTE | 2023-12-11 11:27 | MHC.OFFVIS ---
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 She had been complaining of worsening shortness of breath. Further workup included a chest x-ray demonstrating some interstitial abnormalities. Therefore she was referred to undergo a CT scan of the chest. The CT scan demonstrated some nodular densities in therefore she was referred to Pulmonary. I personally reviewed the CT scan myself. She does have evidence of bronchitis in addition to this elongated tubular density in the right middle lobe area. In the ED may be within the airway itself. The patient also did have a CT scan of the chest back in 2019 which I also personally reviewed. Unfortunately, technique was suboptimal and there was a lot of motion artifact. But it appears that the nodular density may have been there she is unclear as far as the size in the size. We talked about other potential etiologies that this could be such as mucous plugging smoldering infections. The patient be provided with an Acapella valve and she is going to work on chest physical therapy. Will try to also get a sputum culture for AFB to rule out non tuberculosis mycobacterial infections that can cause Nodular densities in the lungs. The patient continue perform her chest PT and will plan to repeat the CT scan in March with the hope that the nodular density has subsided. edure. She continues use the oxygen with good effect. She continues use her respiratory therapy, Trelegy with good effect as well. She has not required her rescue inhaler. 08/22/2022 the patient is here for pulmonary follow-up visit. She is still on a hard time with the issue with the biopsy. She did undergo the biopsy and demonstrated no evidence of any malignancy which is reassuring. Although it did have some atypical cells suggestive of reactive macrophages. Although malignancy cannot completely be ruled out with CT guided biopsies. The only definitive way of doing it will be with surgical biopsy. Unfortunately, her PFTs demonstrate a severe decrease in the DLCO in any kind of lung resection would be difficult for the patient to tolerate. She is already on oxygen. Clinically the patient is doing okay from a breathing standpoint. She continues her respiratory therapy. I do agree that repeating her CT scan in 6 weeks will be important to make sure that we follow this pulmonary nodule that was positive in her PET scan. If the nodules any larger and is progressing then we will discuss considering another CT-guided biopsy or talking to the radiation oncologist regarding possibility of stereotactic radiation. The patient is also having hard time sleeping. We did talk about different agents to use. I do believe that trazodone will be effective in helping her sleep. She will try for now. 10/24/2022 the patient is here for a pulmonary follow-up visit. The patient had a recent CT scan of the chest to be which we personally reviewed. It appears that the right-sided pulmonary nodule is enlarging from 1.7 to 1.9 cm in size. This is concerning. We know that this is an avid nodule. At least based on the CT scan from April it was a solitary nodule without any evidence of any spread. Still because her lung capacity she cannot tolerate surgery. Her initial biopsy was nondiagnostic. She either needs to have a repeat biopsy undergo stereotactic radiation without a biopsy. Will go ahead and plan to perform a biopsy in addition to that will% or a tumor conference to see people feel compelled about avoiding biopsy in going right to stereotactic radiation. She does have an oncologist to follow her closely so therefore will have her involving that discussion as well. From a respiratory status the patient is doing well on the oxygen. She does have very limited pulmonary reserve. 01/21/2023 the patient is here for pulmonary follow-up visit. The patient did complete her stereotactic radiation for her pulmonary nodule. She did tolerated therapy well. Although she has been having increasing shortness of breath. Apparently with activity. Moderate severity. She is using her oxygen. Patient is coughing more but denies any significant chest congestion. On examination she does have additional crackles on that left hemithorax. Therefore she is likely developing some radiation pneumonitis in that area. The patient is agreeable in taking a small dose of prednisone to try to minimize the inflammatory changes that occurs after having such therapy. 03/26/2023 the patient is here for pulmonary follow-up visit. Since we last spoke she developed worsening shortness of breath and weakness. She was evaluated at the [facility] ER where she had a chest x-ray demonstrating increased hazy opacity in the right mid lung zone. The patient was started on antibiotics. She was also given additional diuresis and prednisone. Her oxygen requirements improved and the patient was discharged. Now she is feeling better. She still recovering still feels tired. Her respiratory exam actually sounds better. no further evidence of crackles. She already completed the prednisone. The patient also followed up with Cardiology. She is continued on diuresis. She is monitoring her daily weight. She will undergo a chest x-ray today to follow-up for recent pneumonia. She will also need additional imaging studies follow-up with the pulmonary nodule that is status post stereotactic radiation. 09/26/2023 the patient is here for a pulmonary follow-up visit. She has been having worsening respiratory symptoms. Complains of shortness of breath even at rest. Moderate severity. Also complains of cough. Denies any chest pain. She was taken off her diuretic for an unclear reason. In the meantime the patient does demonstrating increasing shortness of breath along with lower extremity edema. We did review her CT scan of the chest from [facility] demonstrating masslike consolidation. She was treated for pneumonia. Will go ahead and give her additional antibiotics at this time because she feels that she is coughing more. Will plan to repeat the CT scan in 6-8 weeks to make sure that there is resolution of the airspace disease. Although it still malignancy is in the differential. She has been using the oxygen with good effect. Although she states that she has been having to use the oxygen more often. 12/11/2023 the patient is here for a pulmonary follow-up visit. Overall she is actually doing well from a respiratory status. She continues use her oxygen regularly. Now she is worried about her who had severe COVID and now has been having some failure to thrive issues. As far as her radiation therapy she completed already. She did have a repeat CT scan of the chest just beginning of the month which we personally reviewed. Appears that the right lower lobe masslike density is resolved completely. Now she has areas of reticulation suggesting some underlying interstitial lung disease. In part this could have been the result of the radiation therapy. But is minimal and the patient is doing okay. She is having to use the oxygen more often but she understands that is due to the increased scarring of the lung. Therefore, she will continue using current respiratory therapy. The patient will follow-up with [facility] radiation. I believe she is scheduled to have another CT scan done there. Will follow-up in 6 months or sooner if any worsening issues arise. [facility] Medical History (Updated 12/11/23 @ 23:14 by Mathew Alfaro MD) Lung cancer (HFpEF) heart failure with preserved ejection fraction Osteopenia (~2001) History of colon cancer (~2002) Insomnia COPD (chronic obstructive pulmonary disease) Multinodular thyroid CHF (congestive heart failure) Rheumatic fever Subarachnoid bleed High cholesterol GERD (gastroesophageal reflux disease) HTN (hypertension) Surgical History History of bone marrow biopsy History of colonoscopy History of hemicolectomy History of tonsillectomy S/P thyroid biopsy History of lung biopsy History of appendectomy Family History Father Colon cancer Paternal Aunt Colon cancer Sister Breast cancer Social History Household Members: Spouse Housing: House Are you a primary personal care aid to a significant other at home: No Do you presently have visiting nurse or other home services: No Alcohol intake: former Comment: sleeping Patient Tobacco Use Status: Former Tobacco user Quit Date: 1979 Smoked: 20 +/- Advance Directives Date on File: 08/20/22 service: No Current occupational status: retired Review of Systems Const Reports difficulty sleeping, Denies excessive sweating, Denies fatigue, Denies headache(s), Denies weight gain and Denies weight loss Eyes Denies blurry vision and Denies diplopia ENT Denies change in voice, Denies dysphagia, Denies headache(s) and Denies hoarseness Card Denies chest pain, Denies irregular heart rhythm, Reports dyspnea on exertion and Reports other Resp Reports cough and Reports dyspnea on exertion GI Denies abdominal pain, Denies change in bowel habits, Denies dysphagia, Denies diarrhea and Denies nausea Musc Denies myalgias, Denies muscle cramps, Denies numbness and Denies tingling Skin/Breast Denies hirsutism and Denies alopecia Neuro Denies headache(s), Denies numbness and Denies tingling Psych Denies anxiety and Denies depression Endo Denies cold intolerance, Denies excessive sweating, Denies fatigue and Denies heat intolerance Masoud/Lymph Denies easy bruising Physical Exam Vital Signs: Last Vital Signs Pulse 70 12/11/23 11:27 Pulse Ox 94 12/11/23 11:27 Oxygen Delivery Method Room Air 12/11/23 11:27 BMI result Body Mass Index 21.2 Const General: alert and tired appearing Nutritional Appearance: underweight Orientation/consciousness: patient oriented x3 HEENT Head: Yes normocephalic Eyes General: appearance normal, both eyes and all related structures Neck Neck: Yes normal visual inspection Resp Effort & Inspection: normal respiratory effort and not labored Auscultation: no crackles, no rales, no rhonchi, no wheezes and diminished lung sounds Cardio Rate: regular rate Rhythm: regular rhythm Heart sounds: S1 normal heart sound present and S2 normal heart sound present GI Auscultation: normal bowel sounds Skin General skin exam: no rashes or lesions noted Neuro General: patient oriented x3 Extrem General: Yes normal to inspection and No edema Results Reviewed Results Reviewed: [address] [address] [address] Scan Report Signed Patient: Dunia Dow MR#: [id number] : 1935 Acct:[id number] Age/Sex: 88 / F ADM Date: 11/25/23 Loc: HO.CT Attending Dr: Mathew lAfaro MD Ordering Physician: Mathew Alfaro MD Date of Service: 11/25/23 Procedure(s): CT chest wo IV con Accession Number(s): [id number] cc: Uri Houston MD; Mathew Alfaro MD~ EXAMINATION: CT CHEST WITHOUT CONTRAST CLINICAL INFORMATION: Abnormal finding of lung field COMPARISON: CT chest, abdomen and pelvis 07/30/2023 TECHNIQUE: Multidetector volumetric CT imaging of the chest was done. Axial MIP volume rendering provided. Sagittal and coronal reformatted images were obtained. This CT examination was performed using dose optimization techniques as appropriate, variously including the following: *Automated exposure control *Adjustment of mA and/or kV according to patient size (this includes techniques or standardized protocols for targeted exams where dose is matched to indication/reason for exam; i.e. extremities or head) *Use of iterative reconstruction technique DLP: 75 mGy-cm FINDINGS: Central airways are patent. Some linear filling defects within the airways are nonspecific but most suggestive of mucus. There are moderate emphysematous changes again noted. Biapical scarring is present. Scattered bilateral subpleural reticular changes are again noted, relatively similar in prominence. Previously present 3.6 cm masslike lesion within the right lower lobe has completely resolved. Some irregular consolidative changes along the right major fissure are stable. Interval development of small subpleural nodular reticular changes within the lateral aspect of the right upper lobe (image 18/59, series 4). Interval resolution of previously present small left-sided pleural effusion. Several previously identified sub-5 mm pulmonary nodules and nodular densities are stable. No new suspicious pulmonary nodules identified. The heart is normal in size. Coronary artery calcifications are present. There is no pericardial effusion. Normal caliber thoracic aorta. Enlarged main pulmonary artery suggesting pulmonary arterial hypertension. A few mildly prominent mediastinal lymph nodes appear similar although evaluation is limited due to lack of IV contrast. The thyroid gland is diffusely hyperdense, nonspecific. No axillary lymphadenopathy bilaterally. Visualized portions of the upper abdomen are grossly unremarkable. Diffuse osteopenia. Moderate degenerative changes of the spine. CT/CT chest wo IV con IMPRESSION: 1. Previously present 3.6 cm masslike lesion within the right lower lobe has completely resolved. 2. Several previously identified sub-5 mm pulmonary nodules and nodular densities are stable. No new suspicious pulmonary nodules identified. 3. Interval development of small subpleural nodular reticular changes within the lateral aspect of the right upper lobe. This is a nonspecific finding but may represent nothing more than atelectasis versus scarring. Attention on follow-up imaging recommended.. Fleischner guidelines were followed. 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: Assessment & Plan Assessment & Plan (1) Chronic bronchitis: Code(s): J42 - Unspecified chronic bronchitis Category: Medical Qualifiers: Chronic bronchitis type: simple Qualified Code(s): J41.0 - Simple chronic bronchitis (2) Shortness of breath: Code(s): R06.02 - Shortness of breath Category: Medical (3) COPD (chronic obstructive pulmonary disease): Code(s): J44.9 - Chronic obstructive pulmonary disease, unspecified Category: Medical Qualifiers: COPD type: chronic bronchitis Chronic bronchitis type: simple Qualified Code(s): J41.0 - Simple chronic bronchitis (4) Insomnia: Code(s): G47.00 - Insomnia, unspecified Category: Medical Qualifiers: Insomnia type: primary Qualified Code(s): F51.01 - Primary insomnia (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
== END 2023-12-11 11:57 | disposition home or self-care (01) ==
PROVIDERS: PCP Internal Medicine; Visit Provider Hospitalist
DX: J41.0 Simple chronic bronchitis (principal); R06.02 Shortness of breath; F51.01 Primary insomnia; J70.0 Acute pulmonary manifestations due to radiation; I50.23 Acute on chronic systolic (congestive) heart failure; C34.90 Malignant neoplasm of unspecified part of unspecified bronchus or lung
CPT/HCPCS: 99214

== ENCOUNTER → 2023-12-11 10:57 | Outpatient (BNVA) | payer MEDICARE, OTHER, SELFPAY | PROVIDERS: PCP Internal Medicine; Visit Provider Hospitalist | DX: J41.0 Simple chronic bronchitis (principal); R06.02 Shortness of breath; F51.01 Primary insomnia; J70.0 Acute pulmonary manifestations due to radiation; I11.0 Hypertensive heart disease with heart failure; I50.23 Acute on chronic systolic (congestive) heart failure; C34.90 Malignant neoplasm of unspecified part of unspecified bronchus or lung; Z87.891 Personal history of nicotine dependence; Z99.81 Dependence on supplemental oxygen; Z79.899 Other long term (current) drug therapy | CPT/HCPCS: 99212 ==

== ENCOUNTER 2024-02-10 13:35 | Outpatient (AMB) | payer MEDICARE, OTHER, SELFPAY ==
[2024-02-10 13:54] VITALS: BP 120/60; PULSE 65; BMI 21.7
--- NOTE | 2024-02-10 13:54 | MHC.OFFVIS ---
Vital Signs 02/10/24 13:54 Height 5 ft 1 in Weight 114 lb 10.246 oz BMI 21.7 BP 120/60 Blood Pressure Location Lt brachial Position Sitting Pulse 65 Pulse Source Pulse Oximeter Intake Visit Reasons: 4 mt fu per dc Intake Note: 4 mth f/up Account Liaison Hospice Required: No Accompanied by: Self / Same As Patient Allergies cimetidine [From TAGAMET] Allergy (Mild, Verified 12/19/23 12:45) HEADACHES lisinopril [LISINOPRIL] Allergy (Mild, Verified 12/19/23 12:45) COUGH phenytoin [Dilantin] Allergy (Unknown, Verified 12/19/23 12:45) rash hydrochlorothiazide Adverse Reaction (Verified 12/19/23 12:45) Shortness of Breath Medication List - Last Reconciled 02/10/24 by Andry Morse MD ascorbic acid (vitamin C) 500 mg PO DAILY@1800 carvedilol 3.125 mg See Protocol PO DAILY@0900,1800 cholecalciferol (vitamin D3) 50 mcg PO DAILY@1800 docusate sodium (Colace) 100 mg PO BID ferrous sulfate 325 mg PO DAILY@1800 [id number] 100-62.5-25 mcg (Trelegy Ellipta) 1 ea inhalation DAILY multivitamin 1 tab PO DAILY nifedipine ER 60 mg PO DAILY olmesartan 40 mg PO DAILY omeprazole 40 mg PO DAILY@0630 Oxygen Home Use As directed simvastatin 40 mg PO BEDTIME trazodone 50 mg PO BEDTIME 30 days HPI Comments Details: Pleasant 88-year-old female with background diastolic heart failure for follow-up. She is on furosemide 20 mg 5 times a week. Previously was doing well from heart failure point of view. She returns now and has been short of breath. Unfortunately had pneumonia and subsequent to that continued to have shortness of breath and subsequently was put on home oxygen. Her oxygen demand is increasing and she is using oxygen all the time now. She is following closely with Dr. Alfaro. From heart failure point of view she has been stable. She has been taking Lasix as before and has no significant nighttime symptoms. She said she is using trazodone now and sleeping better. 03/06/2023: She is here for follow-up. She just left Hospital after being diagnosed with pneumonia. She said she spent some time in rehab which she lost lot of weight because she did not like the food. She was also not given any ensure or supplements there. She was taken off the Lasix at discharge from the hospital because of hyponatremia. Clinically does not has any significant dyspnea or orthopnea. No peripheral edema. She continues to be on supplemental oxygen due to her COPD. 06/19/2023: She returns for follow-up. She appears to be more frail and is on supplemental oxygen. She is complaining of left-sided lower chest pain. She is saying that she has been coughing more and has been bringing up some clear phlegm. This is more at nighttime. No fevers or chills. She said she reach out to Dr. Alfaro office to get a chest x-ray but she has not heard back about that. Her blood pressure in the office elevated. Her home blood pressure readings are completely normal. Manual blood pressure by myself was 180/80. She has been taking medications regularly. 02/10/24: She is here for follow-up. Blood pressure previously was elevated and we increased the nifedipine to b.i.d. dosing. Since then her blood pressure improved and actually had primary care physician took her off the hydralazine after that. She is taking olmesartan 40 mg daily and carvedilol 3.125 mg twice a day. Clinically not in heart failure. Overall stable. [facility] Medical History (Updated 12/19/23 @ 13:02 by Yasmin Luna MD) Lung cancer (HFpEF) heart failure with preserved ejection fraction Osteopenia (~2001) History of colon cancer (~2002) Insomnia COPD (chronic obstructive pulmonary disease) Multinodular thyroid CHF (congestive heart failure) Rheumatic fever Subarachnoid bleed High cholesterol GERD (gastroesophageal reflux disease) HTN (hypertension) Surgical History History of bone marrow biopsy History of colonoscopy History of hemicolectomy History of tonsillectomy S/P thyroid biopsy History of lung biopsy History of appendectomy Family History Father Colon cancer Paternal Aunt Colon cancer Sister Breast cancer Social History Household Members: Spouse Housing: House Are you a primary child care centre manager to a significant other at home: No Do you presently have visiting nurse or other home services: No Alcohol intake: former Comment: sleeping Patient Tobacco Use Status: Former Tobacco user Years Smoked: 20 +/- Advance Directives Date on File: 08/20/22 service: No Current occupational status: retired Review of Systems Const Denies chills, Denies fatigue, Denies fever(s), Denies frequent falls, Denies weakness, Denies weight gain and Denies weight loss ENT Denies dizziness Card Denies chest pain, Denies leg edema, Denies lightheadedness, Denies palpitations, Denies dyspnea and Denies dyspnea on exertion Resp Denies cough, Denies dyspnea and Denies dyspnea on exertion GI Denies hematochezia Musc Denies abnormal gait, Denies muscle weakness, Denies numbness, Denies radiating pain into limb and Denies tingling Neuro Denies abnormal gait, Denies dizziness, Denies frequent falls, Denies numbness, Denies tingling and Denies weakness Endo Denies fatigue and Denies palpitations Physical Exam Vital Signs: Last Vital Signs Pulse 65 02/10/24 13:54 BP 120/60 02/10/24 13:54 BMI result Body Mass Index 21.7 GENERAL APPEARANCE: in no acute distress, on supplemental oxygen. NECK: no carotid bruit, no jugular venous distention. SKIN: no suspicious lesions, warm and dry. HEART: no murmurs, regular rate and rhythm. LUNGS: clear to auscultation bilaterally. ABDOMEN: soft, nontender. EXTREMITIES: no edema. PERIPHERAL PULSES: equal. NEUROLOGIC: No gross deficits, AAO X 3 Assessment & Plan Assessment & Plan (1) HTN (hypertension): Code(s): I10 - Essential (primary) hypertension Category: Medical (2) CHF (congestive heart failure): Code(s): I50.9 - Heart failure, unspecified Category: Medical Qualifiers: Heart failure chronicity: acute on chronic Heart failure type: systolic Qualified Code(s): I50.23 - Acute on chronic systolic (congestive) heart failure Plan Pleasant 88 year female with chronic diastolic heart failure. Clinically not in heart failure. Blood pressure is better controlled with nifedipine 60 mg twice a day. She is taking olmesartan, carvedilol and is currently off the hydralazine. She is on supplemental oxygen. Denying any significant shortness of breath or chest discomfort. Volume status is optimal currently. Thank you for allowing me to participate in the care of your patient. Please feel free to contact me if you have any questions. Medications: Changed From nifedipine ER 60 mg PO DAILY 90 tabs 1RF To nifedipine ER 60 mg PO BID 90 tabs 1RF Coding Level of Care Code Est Pt Level 3 (76874) Diagnoses HTN (hypertension) I10 Acute on chronic systolic congestive heart failure I50.23 Heart failure chronicity: acute on chronic Heart failure type: systolic
== END 2024-02-10 14:20 | disposition home or self-care (01) ==
PROVIDERS: PCP Internal Medicine; Visit Provider Internal Medicine Cardiovascular Disease
DX: I10 Essential (primary) hypertension (principal); I50.23 Acute on chronic systolic (congestive) heart failure
CPT/HCPCS: 99213

== ENCOUNTER → 2024-02-10 13:35 | Outpatient (BNVA) | payer MEDICARE, OTHER, SELFPAY | PROVIDERS: Visit Provider Internal Medicine Cardiovascular Disease | DX: I11.0 Hypertensive heart disease with heart failure (principal); I50.23 Acute on chronic systolic (congestive) heart failure; Z79.899 Other long term (current) drug therapy | CPT/HCPCS: 99212 ==

== ENCOUNTER 2024-02-17 09:54 | Outpatient (REF) | payer MEDICARE, OTHER, SELFPAY ==
[2024-02-17 10:19] LABS: MANUAL DIFF FLAG NO
[2024-02-17 10:41] LABS: Basophils Percent Auto 0.7 % (0-2); Eosinophils Absolute Auto 0.3 X10*3/uL (0.0-0.4); Eosinophils Percent Auto 4.6 % (0-4); Hematocrit 39.5 % (37.0-47.0); Hemoglobin 12.3 g/dl (12.0-16.0); Imm Gran Abs Auto 0.05 X10*3/uL (0.00-0.03); Imm Gran Pct Auto 0.9 % (0.0-0.4); Lymphocytes Absolute Auto 0.5 X10*3/uL (1.2-4.9); Lymphocytes Percent Auto 9.1 % (20-40); Mean Corpuscular HGB Conc 31.1 g/dl (31.0-35.0); Mean Corpuscular Hemoglobin 28.9 pg (27.0-33.0); Mean Corpuscular Volume 92.9 fL (80.0-98.0); Mean Platelet Volume 9.2 fL (9.4-12.3); Monocytes Absolute Auto 0.3 X10*3/uL (0.1-1.2); Monocytes Percent Auto 5.3 % (2-11); Neutrophils Absolute Auto 4.5 x10*3/uL (2.0-8.3); Neutrophils Percent Auto 79.4 % (45-73); Platelet Count 266 X10*3/uL (160-400); Red Blood Count 4.25 X10*6/uL (4.20-5.50); Red Cell Distribution Width 15.9 % (11.0-16.0); White Blood Count 5.7 X10*3/uL (4.8-10.8)
[2024-02-17 11:10] LABS: Estimated Average Glucose 103 mg/dL; Hemoglobin A1c % 5.2 % (<6.0)
[2024-02-17 11:28] LABS: Alanine Aminotransferase 12 U/L (0-31); Albumin Level 3.6 g/dL (3.5-5.0); Alkaline Phosphatase 83 U/L (39-117); Anion Gap 11 (12-20); Aspartate Amino Transferase 17 U/L (5-31); Bilirubin Total 0.3 mg/dL (0.0-1.0); Blood Urea Nitrogen 38 mg/dL (9-16); Carbon Dioxide 25 mmol/L (22-29); Chloride 104 mmol/L (96-108); Estimated Glomerular Filt Rate 51; Glucose Random 85 mg/dL (60-115); Potassium 4.3 mmol/L (3.3-5.1); Sodium 136 mmol/L (135-145); Total Protein 8.6 g/dL (6.5-8.0)
[2024-02-17 11:45] LABS: TSH reflex Free T4 5.16 uIU/mL (0.32-4.0)
[2024-02-17 13:05] LABS: Free T4 (Free Thyroxine) 0.99 ng/dL (0.71-1.85)
== END 2024-02-17 09:55 | disposition home or self-care (01) ==
LOC: HO.LAB 09:54
PROVIDERS: PCP Internal Medicine; Visit Provider Internal Medicine
DX: I10 Essential (primary) hypertension (principal); R63.4 Abnormal weight loss; R73.01 Impaired fasting glucose
CPT/HCPCS: 36415; 80053; 83036; 84439; 84443; 85025

== ENCOUNTER 2024-04-20 09:30 | Outpatient (REF) | payer MEDICARE, OTHER, SELFPAY ==
[2024-04-20 09:51] LABS: MANUAL DIFF FLAG NO
[2024-04-20 10:09] LABS: Basophils Absolute Auto 0.1 X10*3/uL (0.0-0.2); Basophils Percent Auto 1.1 % (0-2); Eosinophils Absolute Auto 0.3 X10*3/uL (0.0-0.4); Eosinophils Percent Auto 5.2 % (0-4); Hematocrit 37.8 % (37.0-47.0); Hemoglobin 11.6 g/dl (12.0-16.0); Imm Gran Abs Auto 0.06 X10*3/uL (0.00-0.03); Lymphocytes Absolute Auto 0.7 X10*3/uL (1.2-4.9); Lymphocytes Percent Auto 11.6 % (20-40); Mean Corpuscular HGB Conc 30.7 g/dl (31.0-35.0); Mean Corpuscular Hemoglobin 29.5 pg (27.0-33.0); Mean Corpuscular Volume 96.2 fL (80.0-98.0); Monocytes Absolute Auto 0.5 X10*3/uL (0.1-1.2); Monocytes Percent Auto 7.5 % (2-11); Neutrophils Absolute Auto 4.5 x10*3/uL (2.0-8.3); Neutrophils Percent Auto 73.6 % (45-73); Platelet Count 276 X10*3/uL (160-400); Red Blood Count 3.93 X10*6/uL (4.20-5.50); Red Cell Distribution Width 15.3 % (11.0-16.0); White Blood Count 6.1 X10*3/uL (4.8-10.8)
[2024-04-20 11:22] LABS: Anion Gap 11 (12-20); Blood Urea Nitrogen 33 mg/dL (9-16); Carbon Dioxide 25 mmol/L (22-29); Chloride 105 mmol/L (96-108); Estimated Glomerular Filt Rate 51; Glucose Random 66 mg/dL (60-115); Potassium 4.1 mmol/L (3.3-5.1); Sodium 137 mmol/L (135-145)
[2024-04-20 11:24] LABS: Free T4 (Free Thyroxine) 0.93 ng/dL (0.71-1.85)
== END 2024-04-20 09:31 | disposition home or self-care (01) ==
LOC: HO.LAB 09:30
PROVIDERS: PCP Internal Medicine; Visit Provider Internal Medicine
DX: I10 Essential (primary) hypertension (principal)
CPT/HCPCS: 36415; 80048; 84439; 84443; 85025

== ENCOUNTER 2024-06-15 11:01 | Outpatient (AMB) | payer MEDICARE, OTHER, SELFPAY ==
--- NOTE | 2024-06-15 11:02 | MHC.OFFVIS ---
Vital Signs 06/15/24 11:03 Weight 125 lb 10.616 oz BP 150/70 H Blood Pressure Location Lt brachial Position Sitting Pulse 64 Pulse Source Pulse Oximeter Pulse Oximetry (%) 94 Oxygen Delivery Method Nasal Cannula Oxygen Flow Rate 2 Intake Visit Reasons: COPD Allergies cimetidine [From TAGAMET] Allergy (Mild, Verified 06/15/24 11:10) HEADACHES lisinopril [LISINOPRIL] Allergy (Mild, Verified 06/15/24 11:10) COUGH phenytoin [Dilantin] Allergy (Unknown, Verified 06/15/24 11:10) rash hydrochlorothiazide Adverse Reaction (Verified 06/15/24 11:10) Shortness of Breath Medication List - Last Reconciled 06/15/24 by Jannette Mccurdy LPN ascorbic acid (vitamin C) 500 mg PO DAILY@1800 carvedilol 3.125 mg See Protocol PO DAILY@0900,1800 cholecalciferol (vitamin D3) 50 mcg PO DAILY@1800 docusate sodium (Colace) 100 mg PO BID ferrous sulfate 325 mg PO DAILY@1800 [id number] 100-62.5-25 mcg (Trelegy Ellipta) 1 ea PO DAILY multivitamin 1 tab PO DAILY nifedipine ER 60 mg PO BID olmesartan 40 mg PO DAILY omeprazole 40 mg PO DAILY@0630 Oxygen Home Use As directed simvastatin 40 mg PO BEDTIME trazodone 50 mg PO BEDTIME 30 days HPI Comments Details: The patient is an 89-year-old woman with a known history of colon cancer status post resection many years ago, chronic anemia currently on Procrit and congestive heart failure. She had been complaining of worsening shortness of breath. Further workup included a chest x-ray demonstrating some interstitial abnormalities. Therefore she was referred to undergo a CT scan of the chest. The CT scan demonstrated some nodular densities in therefore she was referred to Pulmonary. I personally reviewed the CT scan myself. She does have evidence of bronchitis in addition to this elongated tubular density in the right middle lobe area. In the ED may be within the airway itself. The patient also did have a CT scan of the chest back in 2019 which I also personally reviewed. Unfortunately, technique was suboptimal and there was a lot of motion artifact. But it appears that the nodular density may have been there she is unclear as far as the size in the size. We talked about other potential etiologies that this could be such as mucous plugging smoldering infections. The patient be provided with an Acapella valve and she is going to work on chest physical therapy. Will try to also get a sputum culture for AFB to rule out non tuberculosis mycobacterial infections that can cause Nodular densities in the lungs. The patient continue perform her chest PT and will plan to repeat the CT scan in March with the hope that the nodular density has subsided. edure. She continues use the oxygen with good effect. She continues use her respiratory therapy, Trelegy with good effect as well. She has not required her rescue inhaler. 08/22/2022 the patient is here for pulmonary follow-up visit. She is still on a hard time with the issue with the biopsy. She did undergo the biopsy and demonstrated no evidence of any malignancy which is reassuring. Although it did have some atypical cells suggestive of reactive macrophages. Although malignancy cannot completely be ruled out with CT guided biopsies. The only definitive way of doing it will be with surgical biopsy. Unfortunately, her PFTs demonstrate a severe decrease in the DLCO in any kind of lung resection would be difficult for the patient to tolerate. She is already on oxygen. Clinically the patient is doing okay from a breathing standpoint. She continues her respiratory therapy. I do agree that repeating her CT scan in 6 weeks will be important to make sure that we follow this pulmonary nodule that was positive in her PET scan. If the nodules any larger and is progressing then we will discuss considering another CT-guided biopsy or talking to the radiation oncologist regarding possibility of stereotactic radiation. The patient is also having hard time sleeping. We did talk about different agents to use. I do believe that trazodone will be effective in helping her sleep. She will try for now. 10/24/2022 the patient is here for a pulmonary follow-up visit. The patient had a recent CT scan of the chest to be which we personally reviewed. It appears that the right-sided pulmonary nodule is enlarging from 1.7 to 1.9 cm in size. This is concerning. We know that this is an avid nodule. At least based on the CT scan from April it was a solitary nodule without any evidence of any spread. Still because her lung capacity she cannot tolerate surgery. Her initial biopsy was nondiagnostic. She either needs to have a repeat biopsy undergo stereotactic radiation without a biopsy. Will go ahead and plan to perform a biopsy in addition to that will% or a tumor conference to see people feel compelled about avoiding biopsy in going right to stereotactic radiation. She does have an oncologist to follow her closely so therefore will have her involving that discussion as well. From a respiratory status the patient is doing well on the oxygen. She does have very limited pulmonary reserve. 01/21/2023 the patient is here for pulmonary follow-up visit. The patient did complete her stereotactic radiation for her pulmonary nodule. She did tolerated therapy well. Although she has been having increasing shortness of breath. Apparently with activity. Moderate severity. She is using her oxygen. Patient is coughing more but denies any significant chest congestion. On examination she does have additional crackles on that left hemithorax. Therefore she is likely developing some radiation pneumonitis in that area. The patient is agreeable in taking a small dose of prednisone to try to minimize the inflammatory changes that occurs after having such therapy. 03/26/2023 the patient is here for pulmonary follow-up visit. Since we last spoke she developed worsening shortness of breath and weakness. She was evaluated at the [facility] ER where she had a chest x-ray demonstrating increased hazy opacity in the right mid lung zone. The patient was started on antibiotics. She was also given additional diuresis and prednisone. Her oxygen requirements improved and the patient was discharged. Now she is feeling better. She still recovering still feels tired. Her respiratory exam actually sounds better. no further evidence of crackles. She already completed the prednisone. The patient also followed up with Cardiology. She is continued on diuresis. She is monitoring her daily weight. She will undergo a chest x-ray today to follow-up for recent pneumonia. She will also need additional imaging studies follow-up with the pulmonary nodule that is status post stereotactic radiation. 09/26/2023 the patient is here for a pulmonary follow-up visit. She has been having worsening respiratory symptoms. Complains of shortness of breath even at rest. Moderate severity. Also complains of cough. Denies any chest pain. She was taken off her diuretic for an unclear reason. In the meantime the patient does demonstrating increasing shortness of breath along with lower extremity edema. We did review her CT scan of the chest from [facility] demonstrating masslike consolidation. She was treated for pneumonia. Will go ahead and give her additional antibiotics at this time because she feels that she is coughing more. Will plan to repeat the CT scan in 6-8 weeks to make sure that there is resolution of the airspace disease. Although it still malignancy is in the differential. She has been using the oxygen with good effect. Although she states that she has been having to use the oxygen more often. 12/11/2023 the patient is here for a pulmonary follow-up visit. Overall she is actually doing well from a respiratory status. She continues use her oxygen regularly. Now she is worried about her who had severe COVID and now has been having some failure to thrive issues. As far as her radiation therapy she completed already. She did have a repeat CT scan of the chest just beginning of the month which we personally reviewed. Appears that the right lower lobe masslike density is resolved completely. Now she has areas of reticulation suggesting some underlying interstitial lung disease. In part this could have been the result of the radiation therapy. But is minimal and the patient is doing okay. She is having to use the oxygen more often but she understands that is due to the increased scarring of the lung. Therefore, she will continue using current respiratory therapy. The patient will follow-up with [facility] radiation. I believe she is scheduled to have another CT scan done there. Will follow-up in 6 months or sooner if any worsening issues arise. [facility] Medical History Lung cancer (HFpEF) heart failure with preserved ejection fraction Osteopenia (~2001) History of colon cancer (~2002) Insomnia COPD (chronic obstructive pulmonary disease) Multinodular thyroid CHF (congestive heart failure) Rheumatic fever Subarachnoid bleed High cholesterol GERD (gastroesophageal reflux disease) HTN (hypertension) Surgical History History of bone marrow biopsy History of colonoscopy History of hemicolectomy History of tonsillectomy S/P thyroid biopsy History of lung biopsy History of appendectomy Family History Father Colon cancer Paternal Aunt Colon cancer Sister Breast cancer Social History Household Members: Spouse Housing: House Are you a primary tire care manager to a significant other at home: No Do you presently have visiting nurse or other home services: No Alcohol intake: former Comment: sleeping Patient Tobacco Use Status: Former Tobacco user Years Smoked: 20 +/- Advance Directives Date on File: 08/20/22 service: No Current occupational status: retired Review of Systems Const Reports difficulty sleeping, Denies excessive sweating, Denies fatigue, Denies headache(s), Denies weight gain and Reports weight loss Eyes Denies blurry vision and Denies diplopia ENT Denies change in voice, Denies dysphagia, Denies headache(s) and Denies hoarseness Card Denies chest pain, Denies irregular heart rhythm, Reports dyspnea on exertion and Reports other Resp Reports cough and Reports dyspnea on exertion GI Denies abdominal pain, Denies change in bowel habits, Denies dysphagia, Denies diarrhea and Denies nausea Musc Denies myalgias, Denies muscle cramps, Denies numbness and Denies tingling Skin/Breast Denies hirsutism and Denies alopecia Neuro Denies headache(s), Denies numbness and Denies tingling Psych Denies anxiety and Denies depression Endo Denies cold intolerance, Denies excessive sweating, Denies fatigue and Denies heat intolerance Masoud/Lymph Denies easy bruising Physical Exam Vital Signs: Last Vital Signs Pulse 64 06/15/24 11:03 BP 150/70 H 06/15/24 11:03 Pulse Ox 94 06/15/24 11:03 Oxygen Delivery Method Nasal Cannula 06/15/24 11:03 Oxygen Flow Rate 2 06/15/24 11:03 Const General: alert and tired appearing Nutritional Appearance: underweight Orientation/consciousness: patient oriented x3 HEENT Head: Yes normocephalic Eyes General: appearance normal, both eyes and all related structures Neck Neck: Yes normal visual inspection Resp Effort & Inspection: normal respiratory effort and not labored Auscultation: no crackles, no rales, no rhonchi, no wheezes and diminished lung sounds Cardio Rate: regular rate Rhythm: regular rhythm Heart sounds: S1 normal heart sound present and S2 normal heart sound present GI Auscultation: normal bowel sounds Skin General skin exam: no rashes or lesions noted Neuro General: patient oriented x3 Extrem General: Yes normal to inspection and No edema Assessment & Plan Assessment & Plan (1) Chronic bronchitis: Code(s): J42 - Unspecified chronic bronchitis Category: Medical Qualifiers: Chronic bronchitis type: simple Qualified Code(s): J41.0 - Simple chronic bronchitis (2) Shortness of breath: Code(s): R06.02 - Shortness of breath Category: Medical (3) COPD (chronic obstructive pulmonary disease): Code(s): J44.9 - Chronic obstructive pulmonary disease, unspecified Category: Medical Qualifiers: COPD type: chronic bronchitis Chronic bronchitis type: simple Qualified Code(s): J41.0 - Simple chronic bronchitis (4) Insomnia: Code(s): G47.00 - Insomnia, unspecified Category: Medical Qualifiers: Insomnia type: primary Qualified Code(s): F51.01 - Primary insomnia (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
[2024-06-15 11:03] VITALS: BP 150/70; PULSE 64; O2SAT 94
== END 2024-06-15 11:28 | disposition home or self-care (01) ==
PROVIDERS: PCP Internal Medicine; Visit Provider Hospitalist
DX: J41.0 Simple chronic bronchitis (principal); R06.02 Shortness of breath; F51.01 Primary insomnia; J70.0 Acute pulmonary manifestations due to radiation; I50.23 Acute on chronic systolic (congestive) heart failure; C34.90 Malignant neoplasm of unspecified part of unspecified bronchus or lung
CPT/HCPCS: 99214; G2211

== ENCOUNTER → 2024-06-15 11:01 | Outpatient (BNVA) | payer MEDICARE, OTHER, SELFPAY | PROVIDERS: PCP Internal Medicine; Visit Provider Hospitalist | DX: J41.0 Simple chronic bronchitis (principal); R06.02 Shortness of breath; F51.01 Primary insomnia; J70.0 Acute pulmonary manifestations due to radiation; C34.90 Malignant neoplasm of unspecified part of unspecified bronchus or lung; R91.8 Other nonspecific abnormal finding of lung field; I11.0 Hypertensive heart disease with heart failure; I50.23 Acute on chronic systolic (congestive) heart failure; Z87.891 Personal history of nicotine dependence; Z99.81 Dependence on supplemental oxygen | CPT/HCPCS: 99212 ==

== ENCOUNTER 2024-07-09 14:06 | Outpatient (REF) | payer MEDICARE, OTHER, SELFPAY ==
--- OUTSIDE RECORDS SUMMARY | 2024-07-09 14:08 | XMS_ITS | Clinical Summary ---
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 Active 03-06 00:00: 00 HYPERTENSIVE HEART DISEASE WITH HEART FAILURE Active 03-06 00:00: 00 UNSPECIFIED DIASTOLIC (CONGESTIVE) HEART FAILURE Active 03-06 00:00: 00 OTHER HEART FAILURE Active 03-06 00:00: 00 DEPRESSION, UNSPECIFIED Active 03-06 00:00: 00 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 Active 03-06 00:00: 00 MIXED HYPERLIPIDEM IA Active 03-06 00:00: 00 HYPO-OSMOLAL ITY AND HYPONATREMIA Active 03-06 00:00: 00 VITAMIN D DEFICIENCY, UNSPECIFIED Active 03-06 00:00: 00 RETENTION OF URINE, UNSPECIFIED Active 03-06 00:00: 00 OTHER IRON DEFICIENCY ANEMIAS Active 03-06 00:00: 00 PERSONAL HISTORY OF MALIGNANT NEOPLASM OF LARGE INTESTINE Active 03-06 00:00: 00 RESIDENTIAL (CURRENT) USE OF INHALED STEROIDS Active 03-06 00:00: 00 PERSONAL HISTORY OF PNEUMONIA (RECURRENT) Active 03-06 00:00: 00 Allergies, Adverse Reactions, Alerts Allergy Name Allergy Type Status Severity Reaction(s) Onset Date Inactive Date Treating Clinician Comments DILANTIN Propensity to adverse reactions Active 03-06 09:36: 50 LISINOPRIL Propensity to adverse reactions Active 03-06 09:37: 07 Medications Ordered Medication Name Filled Medication Name Start Date Stop Date Current Medication? Ordering Clinician Indication Dosage Frequency Signature (SIG) Comments Components Trelegy Ellipta 100 mcg-62.5 mcg-25 mcg powder for inhalation 02-05 00:00: 00 07-30 23:59 :00 No [id number] Per instruc tions INHALED DAILY FOR 30 DAYS Per instructio ns INHALED DAILY FOR 30 DAYS (route: inhalation ) Med Classific ation: Respirato ry Therapy Agents carvedilol 3.125 mg tablet 03-06 00:00: 00 07-30 23:59 :00 No [id number] 1 tablet DAILY 1 tablet DAILY (route: oral) Med Classific ation: Cardiovas cular Therapy Agents hydralazine 50 mg tablet 03-06 00:00: 00 07-30 23:59 :00 No [id number] 1 tablet 3 TIMES DAILY 1 tablet 3 TIMES DAILY (route: oral) Med Classific ation: Cardiovas cular Therapy Agents nifedipine ER 60 mg tablet,exte nded release 03-06 00:00: 00 07-30 23:59 :00 No [id number] 1 tablet DAILY 1 tablet DAILY (route: oral) Med Classific ation: Cardiovas cular Therapy Agents olmesartan 20 mg tablet 03-06 00:00: 00 07-30 23:59 :00 No [id number] 1 tablet DAILY 1 tablet DAILY (route: oral) Med Classific ation: Cardiovas cular Therapy Agents omeprazole 40 mg capsule,del ayed release 03-06 00:00: 00 07-30 23:59 :00 No [id number] 1 capsule DAILY 1 capsule DAILY (route: oral) Med Classific ation: Gastroint estinal Therapy Agents simvastatin 40 mg tablet 03-06 00:00: 00 07-30 23:59 :00 No [id number] 1 tablet BEDTIME 1 tablet BEDTIME (route: oral) Med Classific ation: Cardiovas cular Therapy Agents tamsulosin 0.4 mg capsule 03-06 00:00: 00 03-21 23:59 :00 No [id number] 1 capsule BEDTIME 1 capsule BEDTIME (route: oral) Med Classific ation: Genitouri nary Therapy trazodone 100 mg tablet 03-06 00:00: 00 07-30 23:59 :00 No [id number] 1 tablet BEDTIME 1 tablet BEDTIME (route: oral) Med Classific ation: Central Nervous System Agents Immunizations Ordered Immunization Name Filled Immunization Name Date Status Comments Refusal Reason COVID-19, COVID-19 2023-03-06 00:00:00 PNEUMOCOCCAL (PPV), PPV 2023-03-06 00:00:00 Vital Signs Vital Name Observation Time Observation Value Commen ts Temperature 2023-04-15 16:00:00.000 97.8 [degF] Temperature 2023-04-04 10:25:00.000 97.7 [degF] Temperature 2023-03-29 11:53:00.000 98.8 [degF] Temperature 2023-03-27 10:13:00.000 98.9 [degF] Temperature 2023-03-21 11:06:00.000 97.7 [degF] Temperature 2023-03-13 07:44:00.000 97.4 [degF] Temperature 2023-03-10 18:32:00.000 98.4 [degF] Temperature 2023-03-06 09:41:00.000 98.4 [degF] BMI (%) 2023-03-06 10:14:00.000 20 kg/m2 Height 2023-03-06 09:41:00.000 61 [in_us] Pulse 2023-04-15 16:00:00.000 66 /min Pulse 2023-04-04 10:25:00.000 78 /min Pulse 2023-03-29 11:53:00.000 75 /min Pulse 2023-03-27 10:13:00.000 67 /min Pulse 2023-03-21 11:06:00.000 61 /min Pulse 2023-03-19 13:08:00.000 88 /min Pulse 2023-03-13 07:44:00.000 68 /min Pulse 2023-03-10 18:32:00.000 66 /min Pulse 2023-03-06 09:41:00.000 89 /min O2 Saturation (%) 2023-04-15 16:00:00.000 93 % O2 Saturation (%) 2023-04-04 10:25:00.000 96 % O2 Saturation (%) 2023-03-27 10:13:00.000 95 % O2 Saturation (%) 2023-03-21 11:06:00.000 98 % O2 Saturation (%) 2023-03-19 13:08:00.000 92 % O2 Saturation (%) 2023-03-13 07:44:00.000 98 % O2 Saturation (%) 2023-03-10 18:32:00.000 98 % O2 Saturation (%) 2023-03-06 09:41:00.000 98 % Respirations 2023-04-15 16:00:00.000 16 /min Respirations 2023-04-04 10:25:00.000 16 /min Respirations 2023-03-29 11:53:00.000 18 /min Respirations 2023-03-27 10:13:00.000 16 /min Respirations 2023-03-21 11:06:00.000 18 /min Respirations 2023-03-13 07:44:00.000 18 /min Respirations 2023-03-10 18:32:00.000 18 /min Respirations 2023-03-06 09:41:00.000 17 /min Weight (lbs) 2023-04-15 16:02:00.000 113 [lb_av] Weight (lbs) 2023-04-04 10:34:00.000 112.2 [lb_av] Weight (lbs) 2023-03-27 10:13:00.000 112.2 [lb_av] Weight (lbs) 2023-03-21 11:06:00.000 111 [lb_av] Weight (lbs) 2023-03-13 07:44:00.000 108.6 [lb_av] Weight (lbs) 2023-03-10 18:32:00.000 108.8 [lb_av] Weight (lbs) 2023-03-06 10:14:00.000 107.8 [lb_av] Systolic Blood Pressure 2023-04-15 16:00:00.000 110 mm [Hg] Systolic Blood Pressure 2023-04-04 10:25:00.000 118 mm [Hg] Systolic Blood Pressure 2023-03-29 11:53:00.000 115 mm [Hg] Systolic Blood Pressure 2023-03-27 10:13:00.000 110 mm [Hg] Systolic Blood Pressure 2023-03-21 11:06:00.000 120 mm [Hg] Systolic Blood Pressure 2023-03-13 07:44:00.000 122 mm [Hg] Systolic Blood Pressure 2023-03-10 18:32:00.000 112 mm [Hg] Systolic Blood Pressure 2023-03-06 10:28:00.000 106 mm [Hg] Diastolic Blood Pressure 2023-04-15 16:00:00.000 60 mm [Hg] Diastolic Blood Pressure 2023-04-04 10:25:00.000 62 mm [Hg] Diastolic Blood Pressure 2023-03-29 11:53:00.000 68 mm [Hg] Diastolic Blood Pressure 2023-03-27 10:13:00.000 58 mm [Hg] Diastolic Blood Pressure 2023-03-21 11:06:00.000 60 mm [Hg] Diastolic Blood Pressure 2023-03-13 07:44:00.000 78 mm [Hg] Diastolic Blood Pressure 2023-03-10 18:32:00.000 64 mm [Hg] Diastolic Blood Pressure 2023-03-06 10:28:00.000 58 mm [Hg] Plan of Treatment Planned Activity Planned Date Details Comments Future Scheduled Test SKILLED NU RSE TO EVALUATE PATIENT, IDENTIFY PRIMARY AND CO-MORBID CONDITIONS CODED PER CODING GUIDELINES, AND DEVELOP PATIENT SPECIFIC PLAN OF CARE THAT INCLUDES PATIENT GOAL FOR HOME HEALTH. [code = SKILLED NURSE TO EVALUATE PATIENT, IDENTIFY PRIMARY AND CO-MORBID CONDITIONS CODED PER CODING GUIDELINES, AND DEVELOP PATIENT SPECIFIC PLAN OF CARE THAT INCLUDES PATIENT GOAL FOR HOME HEALTH.] Future Scheduled Test SKILLED NU RSE TO REVIEW PATIENT MEDICATIONS. INSTRUCT PATIENT/CAREGIVER ON MONITORING OF EFFECTIVENESS, ADVERSE DRUG REACTIONS, SIDE EFFECTS OF ALL MEDICATIONS (PRESCRIPTION/-OTC), AND HOW AND WHEN TO REPORT PROBLEMS. [code = SKILLED NURSE TO REVIEW PATIENT MEDICATIONS. INSTRUCT PATIENT/CAREGIVER ON MONITORING OF EFFECTIVENESS, ADVERSE DRUG REACTIONS, SIDE EFFECTS OF ALL MEDICATIONS (PRESCRIPTION/-OTC), AND HOW AND WHEN TO REPORT PROBLEMS.] Future Scheduled Test OXYGEN VIA NASAL CANNULA @ 2 LITERS INTERMITTENT. SKILLED NURSE FOR O/A AND SKILLED TEACHING OF SAFE OXYGEN USE IN THE HOME. [code = OXYGEN VIA NASAL CANNULA @ 2 LITERS INTERMITTENT. SKILLED NURSE FOR O/A AND SKILLED TEACHING OF SAFE OXYGEN USE IN THE HOME.] Future Scheduled Test SKILLED NU RSE MAY COLLECT URINE SAMPLE FOR URINE REAGENT STRIP TESTING AND/OR URINALYSIS WITH CS 1-3 PRN IF INDICATED FOR SIGNS AND SYMPTOMS OF UTI. IF REAGENT STRIP TEST IS POSITIVE FOR UTI, SKILLED NURSE TO TAKE URINE SAMPLE TO LAB FOR URINE CS AND REPORT RESULTS TO PHYSICIAN. [code = SKILLED NURSE MAY COLLECT URINE SAMPLE FOR URINE REAGENT STRIP TESTING AND/OR URINALYSIS WITH CS 1-3 PRN IF INDICATED FOR SIGNS AND SYMPTOMS OF UTI. IF REAGENT STRIP TEST IS POSITIVE FOR UTI, SKILLED NURSE TO TAKE URINE SAMPLE TO LAB FOR URINE CS AND REPORT RESULTS TO PHYSICIAN.] Future Scheduled Test SKILLED NU RSE FOR INSTRUCTION/ REINFORCEMENT OF NEEDS RELATED TO NUTRITION/HYDRATION. [code = SKILLED NURSE FOR INSTRUCTION/ REINFORCEMENT OF NEEDS RELATED TO NUTRITION/HYDRATION.] Future Scheduled Test SKILLED NU RSE FOR O/A, TEACHING RELATED TO GERD FOR EARLY IDENTIFICATION OF EXACERBATION OF DISEASE PROCESS. [code = SKILLED NURSE FOR O/A, TEACHING RELATED TO GERD FOR EARLY IDENTIFICATION OF EXACERBATION OF DISEASE PROCESS.] Future Scheduled Test SKILLED NU RSE TO INSTRUCT PATIENT/CAREGIVER AND PERFORM CARE AND MANAGEMENT OF INDWELLING URINARY CATHETER. FOLEYVCATHETER INSERTION WITH 14FR CATHETER WITH 5 ML BALLOON, CHANGE PER ORDER AND PRN FOR LEAKING OR MALFUNCTIONING CATHETER. IRRIGATE URINARY CATHETER WITH 30-60CC NORMAL SALINE PRN BLOCKAGE/LEAKAGE, HEAVY SEDIMENT. 1 - 3 PRN FPC VISITS FOR CATHETER CHANGE(S) AND/OR TROUBLESHOOTING. [code = SKILLED NURSE TO INSTRUCT PATIENT/CAREGIVER AND PERFORM CARE AND MANAGEMENT OF INDWELLING URINARY CATHETER. FOLEYVCATHETER INSERTION WITH 14FR CATHETER WITH 5 ML BALLOON, CHANGE PER ORDER AND PRN FOR LEAKING OR MALFUNCTIONING CATHETER. IRRIGATE URINARY CATHETER WITH 30-60CC NORMAL SALINE PRN BLOCKAGE/LEAKAGE, HEAVY SEDIMENT. 1 - 3 PRN FPC VISITS FOR CATHETER CHANGE(S) AND/OR TROUBLESHOOTING.] Future Scheduled Test SKILLED NU RSE FOR O/A, TEACHING AND MANAGEMENT OF URINARY RETENTIONFOR EARLY IDENTIFICATION OF EXACERBATION OF DISEASE PROCESS [code = SKILLED NURSE FOR O/A, TEACHING AND MANAGEMENT OF URINARY RETENTIONFOR EARLY IDENTIFICATION OF EXACERBATION OF DISEASE PROCESS] Future Scheduled Test OCCUPATION AL THERAPIST TO EVALUATE PATIENT FOR SAFETY/RISK FOR FALLS, APPROPRIATE USE OF DME, HAND/FINGER STIFFNESS, BATHING AND DRESSING. [code = OCCUPATIONAL THERAPIST TO EVALUATE PATIENT FOR SAFETY/RISK FOR FALLS, APPROPRIATE USE OF DME, HAND/FINGER STIFFNESS, BATHING AND DRESSING. ] Future Scheduled Test SKILLED NU RSE FOR O/A OF RESPIRATORY SYSTEM TO IDENTIFY CHANGES ASSOCIATED WITH EXACERBATION AND TO PROVIDE SKILLED TEACHING ON MANAGEMENT OF COPD, RESPIRATORY DISEASE PROCESS. [code = SKILLED NURSE FOR O/A OF RESPIRATORY SYSTEM TO IDENTIFY CHANGES ASSOCIATED WITH EXACERBATION AND TO PROVIDE SKILLED TEACHING ON MANAGEMENT OF COPD, RESPIRATORY DISEASE PROCESS.] Future Scheduled Test SKILLED NU RSE FOR TEACHING ON ADMINSTRATION OF INHALATION THERAPY AND CARE OF EQUIPMENT [code = SKILLED NURSE FOR TEACHING ON ADMINSTRATION OF INHALATION THERAPY AND CARE OF EQUIPMENT] Future Scheduled Test SKILLED NU RSE FOR O/A RELATED TO SIGNS AND SYMPTOMS OF INFECTION AND TO PROVIDE TEACHING REGARDING INFECTION CONTROL MEASURES. [code = SKILLED NURSE FOR O/A RELATED TO SIGNS AND SYMPTOMS OF INFECTION AND TO PROVIDE TEACHING REGARDING INFECTION CONTROL MEASURES.] Future Scheduled Test SKILLED NU RSE TO PROVIDE TEACHING ON SIGNS AND SYMPTOMS AND MANAGEMENT OF HYPERTENSION. [code = SKILLED NURSE TO PROVIDE TEACHING ON SIGNS AND SYMPTOMS AND MANAGEMENT OF HYPERTENSION.] Future Scheduled Test SKILLED NU RSE TO INSTRUCT PATIENT/CAREGIVER ON COPD TO INCLUDE USE OF [facility] PULMONARY SPECIALTY PROGRAM FOR TEACHING AND SELF-MANAGEMENT RELATED TO COPD DISEASE PROCESS, SIGNS AND SYMPTOMS, AND COMPLICATIONS. [code = SKILLED NURSE TO INSTRUCT PATIENT/CAREGIVER ON COPD TO INCLUDE USE OF [facility] PULMONARY SPECIALTY PROGRAM FOR TEACHING AND SELF-MANAGEMENT RELATED TO COPD DISEASE PROCESS, SIGNS AND SYMPTOMS, AND COMPLICATIONS.] Future Scheduled Test SKILLED NU RSE FOR O/A, TEACHING AND SELF-MANAGEMENT RELATED TO HEART FAILURE. INSTRUCT PATIENT/CAREGIVER ON SIGNS AND SYMPTOMS OF EXACERBATION TO REPORT. WEIGHT TO BE OBTAINED DAILY AND WEIGHT GAIN OF 2 LBS OVERNIGHT OR 5 LBS IN 1 WEEK TO BE REPORTED TO PHYSICIAN. IF UNABLE TO WEIGH PATIENT, SKILLED NURSE TO OBTAIN MEASUREMENT OF LE IN CM AT EACH VISIT AND REPORT AN INCREASE OF 1 CM TO PHYSICIAN. [code = SKILLED NURSE FOR O/A, TEACHING AND SELF-MANAGEMENT RELATED TO HEART FAILURE. INSTRUCT PATIENT/CAREGIVER ON SIGNS AND SYMPTOMS OF EXACERBATION TO REPORT. WEIGHT TO BE OBTAINED DAILY AND WEIGHT GAIN OF 2 LBS OVERNIGHT OR 5 LBS IN 1 WEEK TO BE REPORTED TO PHYSICIAN. IF UNABLE TO WEIGH PATIENT, SKILLED NURSE TO OBTAIN MEASUREMENT OF LE IN CM AT EACH VISIT AND REPORT AN INCREASE OF 1 CM TO PHYSICIAN.] Future Scheduled Test SKILLED NU RSE FOR O/A AND SKILLED TEACHING RELATED TO SIGNS AND SYMPTOMS AND MANAGEMENT OF IRON DEF ANEMIA. [code = SKILLED NURSE FOR O/A AND SKILLED TEACHING RELATED TO SIGNS AND SYMPTOMS AND MANAGEMENT OF IRON DEF ANEMIA.] Future Scheduled Test VIRTUAL SIT FREQUENCY: 1-6 PER WEEK X 2 WEEKS AND 6 PRN VIRTUAL VISITS MAY BE PERFORMED UTILIZING TELECOMMUNICATIONS SYSTEM TO OPTIMIZE SKILLED SERVICES FURNISHED ON THE PLAN OF CARE. SKILLED NURSE TO ESTABLISH SUPPORT MEASURES TO MINIMIZE RISK OF REHOSPITALIZATION, AND INSTRUCT PATIENT/CAREGIVER ON METHODS TO REDUCE AVOIDABLE HOSPITALIZATION. [code = VIRTUAL VISIT FREQUENCY: 1-6 PER WEEK X 2 WEEKS AND 6 PRN VIRTUAL VISITS MAY BE PERFORMED UTILIZING TELECOMMUNICATIONS SYSTEM TO OPTIMIZE SKILLED SERVICES FURNISHED ON THE PLAN OF CARE. SKILLED NURSE TO ESTABLISH SUPPORT MEASURES TO MINIMIZE RISK OF REHOSPITALIZATION, AND INSTRUCT PATIENT/CAREGIVER ON METHODS TO REDUCE AVOIDABLE HOSPITALIZATION.] Future Scheduled Test PATIENT VALDEZ S A RISK OF HOSPITALIZATION AND ED USE. SKILLED NURSE TO ESTABLISH SUPPORT MEASURES TO MINIMIZE RISK OF HOSPITALIZATION AND ED USE, AND INSTRUCT PATIENT/CAREGIVER ON METHODS TO REDUCE AVOIDABLE HOSPITALIZATION AND ED USE. [code = PATIENT HAS A RISK OF HOSPITALIZATION AND ED USE. SKILLED NURSE TO ESTABLISH SUPPORT MEASURES TO MINIMIZE RISK OF HOSPITALIZATION AND ED USE, AND INSTRUCT PATIENT/CAREGIVER ON METHODS TO REDUCE AVOIDABLE HOSPITALIZATION AND ED USE.] Future Scheduled Test SKILLED NU RSE TO PROVIDE INSTRUCTION TO PATIENT/CAREGIVER RELATED TO DISCHARGE PLANNING. [code = SKILLED NURSE TO PROVIDE INSTRUCTION TO PATIENT/CAREGIVER RELATED TO DISCHARGE PLANNING.] Future Scheduled Test SKILLED NU RSE TO PERFORM HOME SAFETY AND FALL ASSESSMENT AND PROVIDE INSTRUCTION TO IMPLEMENT HOME SAFETY AND FALL PREVENTION STRATEGIES. [code = SKILLED NURSE TO PERFORM HOME SAFETY AND FALL ASSESSMENT AND PROVIDE INSTRUCTION TO IMPLEMENT HOME SAFETY AND FALL PREVENTION STRATEGIES.] Future Scheduled Test SKILLED NU RSE FOR OBSERVATION AND ASSESSMENT OF PATIENTS PAIN LEVEL AND EFFECTIVENESS OF PAIN MANAGEMENT REGIMEN. SKILLED NURSE TO INSTRUCT PATIENT/CAREGIVER REGARDING PHARMACOLOGIC AND NON-PHARMACOLOGIC PAIN CONTROL MEASURES. SKILLED NURSE TO REPORT TO PHYSICIAN IF PAIN IS UNCONTROLLED WITH CURRENT PAIN MANAGEMENT REGIMEN. [code = SKILLED NURSE FOR OBSERVATION AND ASSESSMENT OF PATIENTS PAIN LEVEL AND EFFECTIVENESS OF PAIN MANAGEMENT REGIMEN. SKILLED NURSE TO INSTRUCT PATIENT/CAREGIVER REGARDING PHARMACOLOGIC AND NON-PHARMACOLOGIC PAIN CONTROL MEASURES. SKILLED NURSE TO REPORT TO PHYSICIAN IF PAIN IS UNCONTROLLED WITH CURRENT PAIN MANAGEMENT REGIMEN.] Future Scheduled Test SKILLED NU RSE TO ASSESS PATIENT'S SKIN INTEGRITY AND INSTRUCT PATIENT/CAREGIVER ON MEASURES TO PREVENT PRESSURE ULCERS. [code = SKILLED NURSE TO ASSESS PATIENT'S SKIN INTEGRITY AND INSTRUCT PATIENT/CAREGIVER ON MEASURES TO PREVENT PRESSURE ULCERS.] Future Scheduled Test SKILLED NU RSE TO PROVIDE ASSESSMENT AND TEACHING/REINFORCEMENT OF MANAGEMENT OF DEPRESSION INCLUDING DISEASE PROCESS, MEDICATION MANAGEMENT, COPING SKILLS AND IDENTIFY CHANGES ASSOCIATED WITH DEPRESSIVE DISORDERS FOR EARLY INTERVENTION. [code = SKILLED NURSE TO PROVIDE ASSESSMENT AND TEACHING/REINFORCEMENT OF MANAGEMENT OF DEPRESSION INCLUDING DISEASE PROCESS, MEDICATION MANAGEMENT, COPING SKILLS AND IDENTIFY CHANGES ASSOCIATED WITH DEPRESSIVE DISORDERS FOR EARLY INTERVENTION.] Future Scheduled Test OCCUPATION AL THERAPIST TO EVALUATE PATIENT SECONDARY TO FUNCTIONAL DEFICITS/SAFETY CONCERNS IDENTIFIED DURING EVALUATION OCCUPATIONAL THERAPY TO INSTRUCT PATIENT/CAREGIVER ON SAFE TRANSFER TECHNIQUES USING PROPER BODY MECHANICS AND EQUIPMENT TO ENHANCE PARTICIPATION IN ADLS. SUMMARY OF THERAPY EVAL/ASSESSMENT FINDINGS AND REASON(S) SKILLS OF A THERAPIST ARE INDICATED: OT EVALUATION (03/19/23) PATIENT IS 87 YEAR OLD FEMALE REFERRED TO OT SERVICES AFTER RECENT HOSPITALIZATION AND REHAB STAY DUE TO COPD EXACERBATION. PATIENT HAD URINARY CATHETER PLACED 02/27 IN REHAB AND WAS DISCHARGED YESTERDAY AT UROLOGY APPT. PMH SIGNIFICANT FOR: PNEUMONIA, CHF, COPD, HTN, AND MAJOR DEPRESSIVE DISORDER. PRIOR LEVEL OF FUNCTION: PATIENT LIVES WITH DISABLED IN SINGLE FAMILY HOME. INDEPENDENT WITH ADLS/IADLS. HAS [facility] FOR SERVICES. CURRENT LEVEL OF FUNCTION: PATIENT GREETED THERAPIST AT THE DOOR WITHOUT USING HER ASSISTED DEVICE. LOOKED STEADY ON HER FEET SHE WAS WALKING BACK INTO THE KITCHEN TO FINISH DOING HER DISHES AFTER COOKING LUNCH. PATIENT IS SPONGE BATHING AND DRESSING SELF AND DEPENDENTLY TOILETING SELF INDEPENDENTLY ESPECIALLY NOW THAT THE CATHETER IS OUT IT WAS CAUSING A GREAT DEAL OF PROBLEMS. PATIENT IS ABLE TO GET IN AND OUT OF BED ON AND OFF THE TOILET PATIENTS ONLY FEAR IS GETTING IN AND OUT OF THE SHOWER. PATIENT'S DUE TO HIS AMPUTATION HAS A TUB TRANSFER BENCH THAT PATIENT HAS NOT USED HOWEVER WAS EDUCATED TODAY ON HOW TO USE TO GET IN AND OUT OF THE SHOWER. RECOMMENDED SHE HAD ADDITIONAL SUCTION INDICATOR GRAB BARS AND VENDOR INFORMATION GIVEN TO HER ON HERE TO GET THEM. DOES NOT WANT TO PUT PERMANENT BARS UP SO THIS WAS A GREAT ALTERNATIVE. AT THIS TIME PATIENT DEMONSTRATES WITHIN FUNCTIONAL LIMITS RANGE OF MOTION NO DIFFICULTIES WITH STRENGTH OR MOVING BASIC FUNCTIONAL NEEDS AT THIS TIME. RECOMMEND ONE ADDITIONAL VISIT ONCE SHE HAS GRAB BARS AND HAS TRIALED SHOWER USING THE SEAT THE NEW WAY SHE WAS INSTRUCTED ON TODAY. PATIENT OFFERS NO COMPLAINTS OF PAIN. ASSESSMENT/POC : OCCUPATIONAL THERAPY EVALUATION COMPLETED TODAY WITH RECOMMENDATION FOR SKILLED OT SERVICES TO ADDRESS SAFETY WITH SHOWER TRANSFERS AND NEW EQUIPMENT. RECOMMEND 1X/WKX2 TO MEET GOALS. PATIENT IN AGREEMENT WITH POC. PCP 03/11, 03/21/23 BIOPSY OF THYROID.MR/O CA, UROLOGY 03/18. [code = OCCUPATIONAL THERAPIST TO EVALUATE PATIENT SECONDARY TO FUNCTIONAL DEFICITS/SAFETY CONCERNS IDENTIFIED DURING EVALUATION OCCUPATIONAL THERAPY TO INSTRUCT PATIENT/CAREGIVER ON SAFE TRANSFER TECHNIQUES USING PROPER BODY MECHANICS AND EQUIPMENT TO ENHANCE PARTICIPATION IN ADLS. SUMMARY OF THERAPY EVAL/ASSESSMENT FINDINGS AND REASON(S) SKILLS OF A THERAPIST ARE INDICATED: OT EVALUATION (03/19/23) PATIENT IS 87 YEAR OLD FEMALE REFERRED TO OT SERVICES AFTER RECENT HOSPITALIZATION AND REHAB STAY DUE TO COPD EXACERBATION. PATIENT HAD URINARY CATHETER PLACED 02/27 IN REHAB AND WAS DISCHARGED YESTERDAY AT UROLOGY APPT. PMH SIGNIFICANT FOR: PNEUMONIA, CHF, COPD, HTN, AND MAJOR DEPRESSIVE DISORDER. PRIOR LEVEL OF FUNCTION: PATIENT LIVES WITH DISABLED IN SINGLE FAMILY HOME. INDEPENDENT WITH ADLS/IADLS. HAS [facility] FOR SERVICES. CURRENT LEVEL OF FUNCTION: PATIENT GREETED THERAPIST AT THE DOOR WITHOUT USING HER ASSISTED DEVICE. LOOKED STEADY ON HER FEET SHE WAS WALKING BACK INTO THE KITCHEN TO FINISH DOING HER DISHES AFTER COOKING LUNCH. PATIENT IS SPONGE BATHING AND DRESSING SELF AND DEPENDENTLY TOILETING SELF INDEPENDENTLY ESPECIALLY NOW THAT THE CATHETER IS OUT IT WAS CAUSING A GREAT DEAL OF PROBLEMS. PATIENT IS ABLE TO GET IN AND OUT OF BED ON AND OFF THE TOILET PATIENTS ONLY FEAR IS GETTING IN AND OUT OF THE SHOWER. PATIENT'S DUE TO HIS AMPUTATION HAS A TUB TRANSFER BENCH THAT PATIENT HAS NOT USED HOWEVER WAS EDUCATED TODAY ON HOW TO USE TO GET IN AND OUT OF THE SHOWER. RECOMMENDED SHE HAD ADDITIONAL SUCTION INDICATOR GRAB BARS AND VENDOR INFORMATION GIVEN TO HER ON HERE TO GET THEM. DOES NOT WANT TO PUT PERMANENT BARS UP SO THIS WAS A GREAT ALTERNATIVE. AT THIS TIME PATIENT DEMONSTRATES WITHIN FUNCTIONAL LIMITS RANGE OF MOTION NO DIFFICULTIES WITH STRENGTH OR MOVING BASIC FUNCTIONAL NEEDS AT THIS TIME. RECOMMEND ONE ADDITIONAL VISIT ONCE SHE HAS GRAB BARS AND HAS TRIALED SHOWER USING THE SEAT THE NEW WAY SHE WAS INSTRUCTED ON TODAY. PATIENT OFFERS NO COMPLAINTS OF PAIN. ASSESSMENT/POC : OCCUPATIONAL THERAPY EVALUATION COMPLETED TODAY WITH RECOMMENDATION FOR SKILLED OT SERVICES TO ADDRESS SAFETY WITH SHOWER TRANSFERS AND NEW EQUIPMENT. RECOMMEND 1X/WKX2 TO MEET GOALS. PATIENT IN AGREEMENT WITH POC. PCP 03/11, 03/21/23 BIOPSY OF THYROID.MR/O CA, UROLOGY 03/18.] Goal 2023-04-15 Patient Goal - TO HAVE F/C T AKEN OUT Goal Provider Goal - A PLAN OF CARE WILL BE ESTABLISHED THAT MEETS PATIENT'S FPC NEEDS AND INCLUDES PATIENT GOAL FOR HOME HEALTH. Goal Provider Goal - PATIENT/CAREGIVER WILL VERBALIZE UNDERSTANDING OF EDUCATION PROVIDED ON MEDICATIONS BY THE END OF THE CERTIFICATION PERIOD. Goal Provider Goal - PATIENT/CAREGIVER WILL VERBALIZE/DEMONSTRATE UNDERSTANDING OF SAFE OXYGEN USE IN THE HOME THROUGHOUT THE EPISODE. Goal Provider Goal - URINE SPECIMEN WILL BE OBTAINED PRN FOR SIGNS AND SYMPTOMS OF UTI AND RESULTS WILL BE REPORTED TO PHYSICIAN THROUGHOUT THE CERTIFICATION PERIOD. Goal Provider Goal - PATIENT/CAREGIVER WILL DEMONSTRATE ABILITY TO SELF MANAGE NEEDS RELATED TO NUTRITION/HYDRATION THROUGHOUT THE EPISODE. Goal Provider Goal - EXACERBATIONS OF GASTROINTESTINAL DISEASE WILL BE PROMPTLY IDENTIFIED AND INTERVENTIONS IMPLEMENTED TO MINIMIZE RISKS TO PATIENT BY END OF EPISODE. Goal Provider Goal - PATIENT WILL VERBALIZE TOLERANCE OF CATHETER CHANGE AND KNOWLEDGE OF REQUIRED CARE TO MANAGE INDWELLING URINARY CATHETER WITHOUT COMPLICATIONS BY THE END OF THE CERTIFICATION PERIOD. Goal Provider Goal - PATIENT/CAREGIVER WILL VERBALIZE UNDERSTANDING OF GENITOURINARY DISEASE PROCESS, AND EXACERBATIONS OF GENITOURINARY DISEASE WILL BE PROMPTLY IDENTIFIED FOR EARLY INTERVENTION THROUGHOUT THE CERTIFICATION PERIOD. Goal Provider Goal - OCCUPATIONAL THERAPY EVALUATION TO BE COMPLETED WITH RECOMMENDATIONS AND WRITTEN PLAN OF TREATMENT ESTABLISHED FOR THE PHYSICIANS SIGNATURE. Goal Provider Goal - PATIENT/CAREGIVER WILL VERBALIZE/DEMONSTRATE MANAGEMENT OF COPD, RESPIRATORY DISEASE PROCESS. CHANGES IN RESPIRATORY STATUS WILL BE IDENTIFIED AND REPORTED TO PHYSICIAN FOR PROMPT INTERVENTION THROUGHOUT THE CERTIFICATION PERIOD. Goal Provider Goal - PATIENT/CAREGIVER WILL VERBALIZE/DEMONSTRATE INDEPENDENCE WITH ADMINISTRATION OF ORDERED INHALATION THERAPY AND CARE OF EQUIPMENT A RESULT OF SKILLED TEACHING THROUGHOUT THE EPISODE. Goal Provider Goal - PATIENT/CAREGIVER WILL VERBALIZE/DEMONSTRATE INFECTION CONTROL MEASURES AND SIGNS AND SYMPTOMS OF INFECTION WILL BE IDENTIFIED AND PHYSICIAN NOTIFIED FOR PROMPT INTERVENTION THROUGHOUT THE CERTIFICATION PERIOD. Goal Provider Goal - PATIENT/CAREGIVER WILL VERBALIZE SIGNS AND SYMPTOMS OF HYPERTENSION AND WILL BE ABLE TO DEMONSTRATE ABILITY TO MANAGE EXACERBATION BY END OF THE EPISODE. Goal Provider Goal - PATIENT/CAREGIVER WILL VERBALIZE/DEMONSTRATE UTILIZATION OF TOOLS ASSOCIATED WITH THE [facility] PULMONARY SPECIALTY PROGRAM, AND/OR KNOWLEDGE AND MANAGEMENT OF COPD BY END OF EPISODE. Goal Provider Goal - PATIENT/CAREGIVER WILL VERBALIZE/DEMONSTRATE KNOWLEDGE AND MANAGEMENT OF HEART FAILURE DISEASE PROCESS BY END OF EPISODE. Goal Provider Goal - PATIENT/CARGIVER WILL VERBALIZE UNDERSTANDING OF ANEMIA INCLUDING SIGNS AND SYMPTOMS, MANAGEMENT OF COMPLICATIONS, AND PRESCRIBED TREATMENT REGIMEN BY END OF EPISODE. Goal Provider Goal - PATIENT/CAREGIVER WILL UTILIZE VIRTUAL VISITS TO ACHIEVE GOALS OUTLINED ON THE PLAN OF CARE. PATIENT WILL HAVE SUPPORT MEASURES ESTABLISHED TO PREVENT HOSPITALIZATION AND PATIENT/CAREGIVER WILL VERBALIZE/DEMONSTRATE METHODS TO REDUCE AVOIDABLE HOSPITALIZATION THROUGHOUT THE CERTIFICATION PERIOD. Goal Provider Goal - PATIENT WILL HAVE SUPPORT MEASURES ESTABLISHED TO PREVENT HOSPITALIZATION AND ED USE AND PATIENT/CAREGIVER WILL VERBALIZE/DEMONSTRATE METHODS TO REDUCE AVOIDABLE HOSPITALIZATION AND ED USE BY END OF EPISODE. Goal Provider Goal - PATIENT/CAREGIVER WILL VERBALIZE UNDERSTANDING OF DISCHARGE PLANNING INSTRUCTIONS BY DATE OF DISCHARGE. Goal Provider Goal - PATIENT/CAREGIVER WILL VERBALIZE/DEMONSTRATE EFFECTIVE HOME SAFETY AND FALL PREVENTION STRATEGIES THROUGHOUT CERTIFICATION PERIOD. Goal Provider Goal - PATIENT/CAREGIVER WILL DEMONSTRATE UNDERSTANDING OF PHARMACOLOGIC AND NONPHARMACOLOGIC PAIN CONTROL MEASURES AND PATIENT WILL HAVE IMPROVEMENT IN PAIN INTERFERING WITH ACTIVITY EVIDENCED BY PAIN CONTROLLED AT LEVEL OF 7 OR LESS BY END OF CERTIFICATION PERIOD. Goal Provider Goal - PATIENT/CAREGIVER WILL VERBALIZE UNDERSTANDING OF PRESSURE ULCER PREVENTION BY END OF THE EPISODE. Goal Provider Goal - PATIENT/CAREGIVER WILL VERBALIZE/DEMONSTRATE UNDERSTANDING OF THE MANAGEMENT OF DEPRESSION THROUGHOUT THE CERTIFICATION PERIOD AND SYMPTOMS ARE IDENTIFIED AND MANAGED TO MAINTAIN PATIENT SAFETY IN THE HOME. Goal Provider Goal - OCCUPATIONAL THERAPIST TO EVALUATE PATIENT SECONDARY TO FUNCTIONAL DEFICITS/SAFETY CONCERNS IDENTIFIED DURING EVALUATION. PATIENT/CAREGIVER WILL DEMONSTRATE SAFE TRANSFERS USING APPROPRIATE ASSISTIVE DEVICE, BODY MECHANICS AND EQUIPMENT TO IMPROVE FUNCTION OF TUB XSFERS AND SHOWER LEVEL BATHING. Reason for Visit INDEPENDENT IN THE COMMUNITY Encounters Start Date/Time End Date/Time Encounter Type Admission Type Attending [email or web address] Care Department Encounter ID Discharge Date Discharge Status Discharge Condition Discharge Reason Percent Goals Met 2023-03-06 00:00:00 2023-04-15 00:00:00 Outpatient NEW ADMISSION [facility] [id number] 2023-04-15 00:00:00 DISCHARGE TO HOME OR SELF CARE INDEPENDEN T IN THE COMMUNITY PER CLIENT REQUEST 44.44
== END 2024-07-09 14:07 | disposition home or self-care (01) ==
LOC: HO.MAMMO 14:06
PROVIDERS: Visit Provider Internal Medicine
DX: Z12.31 Encounter for screening mammogram for malignant neoplasm of breast (principal)
CPT/HCPCS: 77063; 77067

== ENCOUNTER → 2024-07-09 14:30 | Outpatient (BNV) | payer MEDICARE, OTHER, SELFPAY | PROVIDERS: Visit Provider Internal Medicine | DX: Z12.31 Encounter for screening mammogram for malignant neoplasm of breast (principal) | CPT/HCPCS: 77063; 77067 ==

== ENCOUNTER 2024-08-10 12:37 | Outpatient (AMB) | payer MEDICARE, OTHER, SELFPAY ==
[2024-08-10 12:54] VITALS: BP 150/62; PULSE 58; BMI 24.1
--- NOTE | 2024-08-10 12:54 | MHC.OFFVIS ---
Vital Signs 08/10/24 12:54 Height 5 ft 1 in Weight 127 lb 6.835 oz BMI 24.1 BP 150/62 H Blood Pressure Location Lt brachial Position Sitting Pulse 58 Pulse Source Monitor Intake Visit Reasons: 6 mth f/up Intake Note: 6 mnth f/up Optical Instrument Repairer Required: No Accompanied by: Self / Same As Patient Allergies cimetidine [From TAGAMET] Allergy (Mild, Verified 06/15/24 11:10) HEADACHES lisinopril [LISINOPRIL] Allergy (Mild, Verified 06/15/24 11:10) COUGH phenytoin [Dilantin] Allergy (Unknown, Verified 06/15/24 11:10) rash hydrochlorothiazide Adverse Reaction (Verified 06/15/24 11:10) Shortness of Breath Medication List - Last Reconciled 08/10/24 by Andry Morse MD ascorbic acid (vitamin C) 500 mg PO DAILY@1800 carvedilol 3.125 mg See Protocol PO DAILY@0900,1800 cholecalciferol (vitamin D3) 50 mcg PO DAILY@1800 docusate sodium (Colace) 100 mg PO BID ferrous sulfate 325 mg PO DAILY@1800 [id number]-lmlucwkb 100-62.5-25 mcg (Trelegy Ellipta) 1 ea PO DAILY multivitamin 1 tab PO DAILY nifedipine ER 60 mg PO BID olmesartan 40 mg PO DAILY omeprazole 40 mg PO DAILY@0630 Oxygen Home Use As directed simvastatin 40 mg PO BEDTIME trazodone 50 mg PO BEDTIME 30 days HPI Comments Details: Pleasant 89-year-old female with background diastolic heart failure for follow-up. Previously was doing well from heart failure point of view. She returns now and has been short of breath. Unfortunately had pneumonia and subsequent to that continued to have shortness of breath and subsequently was put on home oxygen. Her oxygen demand is increasing and she is using oxygen all the time now. She is following closely with Dr. Alfaro. From heart failure point of view she has been stable. She has been taking Lasix as before and has no significant nighttime symptoms. She said she is using trazodone now and sleeping better. 03/06/2023: She is here for follow-up. She just left Hospital after being diagnosed with pneumonia. She said she spent some time in rehab which she lost lot of weight because she did not like the food. She was also not given any ensure or supplements there. She was taken off the Lasix at discharge from the hospital because of hyponatremia. Clinically does not has any significant dyspnea or orthopnea. No peripheral edema. She continues to be on supplemental oxygen due to her COPD. 06/19/2023: She returns for follow-up. She appears to be more frail and is on supplemental oxygen. She is complaining of left-sided lower chest pain. She is saying that she has been coughing more and has been bringing up some clear phlegm. This is more at nighttime. No fevers or chills. She said she reach out to Dr. Alfaro office to get a chest x-ray but she has not heard back about that. Her blood pressure in the office elevated. Her home blood pressure readings are completely normal. Manual blood pressure by myself was 180/80. She has been taking medications regularly. 02/10/24: She is here for follow-up. Blood pressure previously was elevated and we increased the nifedipine to b.i.d. dosing. Since then her blood pressure improved and actually had primary care physician took her off the hydralazine after that. She is taking olmesartan 40 mg daily and carvedilol 3.125 mg twice a day. Clinically not in heart failure. Overall stable. 08/10/2024: Here for follow-up. Blood pressure is little elevated but home blood pressure readings are all in normal range. No chest pains or shortness of breath. Clinically euvolemic. [facility] Medical History Lung cancer (HFpEF) heart failure with preserved ejection fraction Osteopenia (~2001) History of colon cancer (~2002) Insomnia COPD (chronic obstructive pulmonary disease) Multinodular thyroid CHF (congestive heart failure) Rheumatic fever Subarachnoid bleed High cholesterol GERD (gastroesophageal reflux disease) HTN (hypertension) Surgical History History of bone marrow biopsy History of colonoscopy History of hemicolectomy History of tonsillectomy S/P thyroid biopsy History of lung biopsy History of appendectomy Family History Father Colon cancer Paternal Aunt Colon cancer Sister Breast cancer Social History Household Members: Spouse Housing: House Are you a primary home care scheduler to a significant other at home: No Do you presently have visiting nurse or other home services: No Alcohol intake: former Comment: sleeping Patient Tobacco Use Status: Former Tobacco user Years Smoked: 20 +/- Advance Directives Date on File: 08/20/22 service: No Current occupational status: retired Review of Systems Const Denies chills, Denies fatigue, Denies fever(s), Denies frequent falls, Denies weakness, Denies weight gain and Denies weight loss ENT Denies dizziness Card Denies chest pain, Denies leg edema, Denies lightheadedness, Denies palpitations, Denies dyspnea and Denies dyspnea on exertion Resp Denies cough, Denies dyspnea and Denies dyspnea on exertion GI Denies hematochezia Musc Denies abnormal gait, Denies muscle weakness, Denies numbness, Denies radiating pain into limb and Denies tingling Neuro Denies abnormal gait, Denies dizziness, Denies frequent falls, Denies numbness, Denies tingling and Denies weakness Endo Denies fatigue and Denies palpitations Physical Exam Vital Signs: Last Vital Signs Pulse 58 08/10/24 12:54 BP 150/62 H 08/10/24 12:54 BMI result Body Mass Index 24.1 GENERAL APPEARANCE: in no acute distress, on supplemental oxygen. NECK: no carotid bruit, no jugular venous distention. SKIN: no suspicious lesions, warm and dry. HEART: no murmurs, regular rate and rhythm. LUNGS: clear to auscultation bilaterally. ABDOMEN: soft, nontender. EXTREMITIES: no edema. PERIPHERAL PULSES: equal. NEUROLOGIC: No gross deficits, AAO X 3 Office Procedures EKG Details: Sinus bradycardia 58 beats per minute, normal axis, normal EKG, QTC 420 milliseconds. [id number], Complete Assessment & Plan Assessment & Plan (1) HTN (hypertension): Code(s): I10 - Essential (primary) hypertension Category: Medical (2) CHF (congestive heart failure): Code(s): I50.9 - Heart failure, unspecified Category: Medical Qualifiers: Heart failure chronicity: acute on chronic Heart failure type: systolic Qualified Code(s): I50.23 - Acute on chronic systolic (congestive) heart failure Plan Pleasant 89-year-old female with chronic diastolic heart failure. Clinically not in heart failure. Home blood pressure readings are in normal range. In the office blood pressure is little elevated. She is saying this happens quite frequently when she comes for office visits. Overall quite stable and I am not changing any medications currently. I have given her option to do telephone visits in the future. Follow-up 6 months. Thank you for allowing me to participate in the care of your patient. Please feel free to contact me if you have any questions. Coding Level of Care Code Est Pt Level 3 (39389) Diagnoses HTN (hypertension) I10 Acute on chronic systolic congestive heart failure I50.23 Heart failure chronicity: acute on chronic Heart failure type: systolic CPT Codes EKG - CPT: 54106-[id number], Complete ([id number])
--- OUTSIDE RECORDS SUMMARY | 2024-08-10 13:39 | XMS_ITS | Clinical Summary ---
Author Organization Unknown Care Team Providers Care Dog Track Kennel Manager Name Role Phone CALOS SEQUEIRA, JOYCE Unavailable Unavailable PREMA MAYS, CLINICAL CUPOLA LINER, SAMUEL Patel available Unavailable Payers Payer Name Policy Type Policy Number Effective Date Expira tion Date MEDICARE - [place] - PDGM [id number] Problems Condition Name Condition Details Condition Category [...] OF LARGE INTESTINE Active 03-06 00:00: 00 USP (CURRENT) USE OF INHALED STEROIDS Active 03-06 [...] 02-05 00:00: 00 07-30 23:59 :00 No [id number] Per instruc tions INHALED DAILY FOR 30 DAYS Per instructio ns INHALED DAILY FOR 30 DAYS (route: inhalation ) Med Classific ation: Respirato ry Therapy Agents carvedilol 3.125 mg tablet 03-06 00:00: 00 07-30 23:59 :00 No [id number] 1 tablet DAILY 1 tablet DAILY (route: oral) Med Classific ation: Cardiovas cular Therapy Agents hydralazine 50 mg tablet 03-06 00:00: 00 07-30 23:59 :00 No [id number] 1 tablet 3 TIMES DAILY 1 tablet 3 TIMES DAILY (route: oral) Med Classific ation: Cardiovas cular Therapy Agents nifedipine ER 60 mg tablet,exte nded release 03-06 00:00: 00 07-30 23:59 :00 No [id number] 1 tablet DAILY 1 tablet DAILY (route: oral) Med Classific ation: Cardiovas cular Therapy Agents olmesartan 20 mg tablet 03-06 00:00: 00 07-30 23:59 :00 No [id number] 1 tablet DAILY 1 tablet DAILY (route: oral) Med Classific ation: Cardiovas cular Therapy Agents omeprazole 40 mg capsule,del ayed release 03-06 00:00: 00 07-30 23:59 :00 No [id number] 1 capsule DAILY 1 capsule DAILY (route: oral) Med Classific ation: Gastroint estinal Therapy Agents simvastatin 40 mg tablet 03-06 00:00: 00 07-30 23:59 :00 No [id number] 1 tablet BEDTIME 1 tablet BEDTIME (route: oral) Med Classific ation: Cardiovas cular Therapy Agents tamsulosin 0.4 mg capsule 03-06 00:00: 00 03-21 23:59 :00 No [id number] 1 capsule BEDTIME 1 capsule BEDTIME (route: oral) Med Classific ation: Genitouri nary Therapy trazodone 100 mg tablet 03-06 00:00: 00 07-30 23:59 :00 No [id number] 1 tablet BEDTIME 1 tablet BEDTIME (route: [...] BLOCKAGE/LEAKAGE, HEAVY SEDIMENT. 1 - 3 PRN SENIOR CARE VISITS FOR CATHETER CHANGE(S) AND/OR TROUBLESHOOTING. [code = SKILLED NURSE TO INSTRUCT PATIENT/CAREGIVER AND PERFORM CARE AND MANAGEMENT OF INDWELLING URINARY CATHETER. FOLEYVCATHETER INSERTION WITH 14FR CATHETER WITH 5 ML BALLOON, CHANGE PER ORDER AND PRN FOR LEAKING OR MALFUNCTIONING CATHETER. IRRIGATE URINARY CATHETER WITH 30-60CC NORMAL SALINE PRN BLOCKAGE/LEAKAGE, HEAVY SEDIMENT. 1 - 3 PRN SENIOR CARE VISITS FOR CATHETER CHANGE(S) AND/OR TROUBLESHOOTING.] Future [...] PATIENT/CAREGIVER ON COPD TO INCLUDE USE OF [facility] PULMONARY SPECIALTY PROGRAM FOR TEACHING AND SELF-MANAGEMENT RELATED TO COPD DISEASE PROCESS, SIGNS AND SYMPTOMS, AND COMPLICATIONS. [code = SKILLED NURSE TO INSTRUCT PATIENT/CAREGIVER ON COPD TO INCLUDE USE OF [facility] PULMONARY SPECIALTY PROGRAM FOR TEACHING AND [...] SINGLE FAMILY HOME. INDEPENDENT WITH ADLS/IADLS. HAS [facility] FOR SERVICES. CURRENT LEVEL OF FUNCTION: PATIENT [...] SINGLE FAMILY HOME. INDEPENDENT WITH ADLS/IADLS. HAS [facility] FOR SERVICES. CURRENT LEVEL OF FUNCTION: PATIENT [...] CARE WILL BE ESTABLISHED THAT MEETS PATIENT'S SENIOR CARE NEEDS AND INCLUDES PATIENT GOAL FOR HOME [...] VERBALIZE/DEMONSTRATE UTILIZATION OF TOOLS ASSOCIATED WITH THE [facility] PULMONARY SPECIALTY PRO[facility], AND/OR KNOWLEDGE AND [...] End Date/Time Encounter Type Admission Type Attending [facility] Care [facility] Care Department Encounter ID Discharge Date Discharge Status Discharge Condition Discharge Reason Percent Goals Met 2023-03-06 00:00:00 2023-04-15 00:00:00 Outpatient NEW ADMISSION [facility] [id number] 2023-04-15 00:00:00 DISCHARGE TO HOME OR SELF CARE INDEPENDEN T IN THE COMMUNITY PER CLIENT REQUEST 44.44
== END 2024-08-10 13:22 | disposition home or self-care (01) ==
PROVIDERS: PCP Internal Medicine; Visit Provider Internal Medicine Cardiovascular Disease
DX: I10 Essential (primary) hypertension (principal); I50.23 Acute on chronic systolic (congestive) heart failure
CPT/HCPCS: 93010; 99213

== ENCOUNTER → 2024-08-10 12:37 | Outpatient (BNVA) | payer MEDICARE, OTHER, SELFPAY | PROVIDERS: PCP Internal Medicine; Visit Provider Internal Medicine Cardiovascular Disease | DX: I11.0 Hypertensive heart disease with heart failure (principal); I50.23 Acute on chronic systolic (congestive) heart failure; R00.1 Bradycardia, unspecified | CPT/HCPCS: 93005; 99212 ==

== ENCOUNTER 2024-09-15 10:15 | Outpatient (REF) | payer MEDICARE, OTHER, SELFPAY ==
[2024-09-15 10:31] LABS: MANUAL DIFF FLAG NO
[2024-09-15 10:54] LABS: Basophils Absolute Auto 0.1 X10*3/uL (0.0-0.2); Basophils Percent Auto 1.6 % (0-2); Eosinophils Absolute Auto 0.4 X10*3/uL (0.0-0.4); Eosinophils Percent Auto 6.4 % (0-4); Hematocrit 38.8 % (37.0-47.0); Hemoglobin 12.2 g/dl (12.0-16.0); Imm Gran Abs Auto 0.08 X10*3/uL (0.00-0.03); Imm Gran Pct Auto 1.3 % (0.0-0.4); Lymphocytes Absolute Auto 0.5 X10*3/uL (1.2-4.9); Mean Corpuscular HGB Conc 31.4 g/dl (31.0-35.0); Mean Corpuscular Hemoglobin 30.6 pg (27.0-33.0); Mean Corpuscular Volume 97.2 fL (80.0-98.0); Monocytes Absolute Auto 0.4 X10*3/uL (0.1-1.2); Monocytes Percent Auto 6.6 % (2-11); Neutrophils Absolute Auto 4.7 x10*3/uL (2.0-8.3); Neutrophils Percent Auto 76.1 % (45-73); Platelet Count 299 X10*3/uL (160-400); Red Blood Count 3.99 X10*6/uL (4.20-5.50); Red Cell Distribution Width 13.8 % (11.0-16.0); White Blood Count 6.2 X10*3/uL (4.8-10.8)
[2024-09-15 11:04] LABS: Estimated Average Glucose 108 mg/dL; Hemoglobin A1c % 5.4 % (<6.0)
[2024-09-15 11:12] LABS: Appearance Urine Clear; Color Urine Yellow; Glucose Urine UA Negative (Negative); Leukocyte Esterase Urine Moderate (2+) (Negative); Nitrite Urine Negative (Negative); UMIC TRIGGER UA YES; Urine Blood Negative (Negative); Urine Ketones Negative (Negative); Urine Protein Negative (Neg-Trace)
[2024-09-15 11:15] LABS: Bacteria Urine 4+ (None Seen); Hyaline Casts Urine 0-2 /LPF (0-2); RBC Urine 0-2 /HPF (0-2); Squamous Epithelial Cell Urine 0-2 /HPF (0-2)
[2024-09-15 11:40] LABS: Alanine Aminotransferase 12 U/L (0-31); Albumin Level 3.8 g/dL (3.5-5.0); Alkaline Phosphatase 93 U/L (39-117); Anion Gap 10 (12-20); Aspartate Amino Transferase 26 U/L (5-31); Bilirubin Total 0.4 mg/dL (0.0-1.0); Blood Urea Nitrogen 30 mg/dL (9-16); Calcium 9.8 mg/dL (8.4-10.2); Carbon Dioxide 25 mmol/L (22-29); Chloride 102 mmol/L (96-108); Cholesterol 175 mg/dL (<200); Estimated Glomerular Filt Rate 59; Glucose Random 93 mg/dL (60-115); HDL Cholesterol 56 mg/dL (>40); LDL Cholesterol Calculated 92 mg/dL (<100); Potassium 4.2 mmol/L (3.3-5.1); Sodium 133 mmol/L (135-145); Total Protein 9.4 g/dL (6.5-8.0); Triglycerides 138 mg/dL (<150)
[2024-09-15 11:57] LABS: Ferritin 203 ng/mL (10-250); Thyroid Stimulating Hormone 3.61 uIU/mL (0.32-4.0)
--- OUTSIDE RECORDS SUMMARY | 2024-09-15 12:06 | XMS_ITS | Clinical Summary ---
Author Organization [facility], Address [address] [place] [address] [place] [address] Phone Care Team Providers Care Compliance Representative Dealer Name Role Phone Araceli Ritchie LATCHER Primary Care Provider Unavailabl e Allergies Active Allergy Reactions Criticality Noted Date Comments Cimetidine Other (see comments) Low 02/21/2017 Other reaction(s): headaches Hydrochlorothiazide Shortness of breath High 02/21/2017 Other reaction(s): muscle aches/ SOB Lisinopril Other (see comments) Low 02/21/2017 Other reaction(s): cough Other reaction(s): Unknown Phenytoin Rash Low 09/25/2019 Other reaction(s): Unknown Phenytoin Sodium Extended 02/21/2017 Other reaction(s): rash Medications Acetaminophen 500 MG capsule Take 1,000 mg by mouth 2 (two) times a week 03/08/2022 Active Cholecalciferol 50 MCG (1999 UT) capsule Take 2,000 Units by mouth in the morning. Active Trelegy Ellipta 100-62.5-25 MCG/ACT aerosol powder TAKE 1 PUFF INHALED DAILY FOR 30 DAYS 02/05/2023 Active predniSONE (DELTASONE) 10 MG tablet 03/05/2023 Active simvastatin (ZOCOR) 40 MG tablet 03/08/2023 Active traZODone (DESYREL) 50 MG tablet TAKE 1 TABLET BY MOUTH EVERY DAY 50 MG ORALLY BEDTIME TAKE 1 HOUR BEFORE SLEEP 01/04/2023 Active NIFEdipine XL (PROCARDIA XL) 60 MG 24 hr tablet Take 60 mg by mouth 1 (one) time each day Do not crush, chew, or split. Active olmesartan (BENICAR) 40 MG tablet Take 40 mg by mouth 1 (one) time each day Active hydrALAZINE 50 MG tablet Take 50 mg by mouth in the morning and 50 mg in the evening and 50 mg before bedtime. Active carvedilol (COREG) 3.125 MG tablet Take 3.125 mg by mouth in the morning and 3.125 mg in the evening. Take with meals. Active Active Problems Problem Noted Date Diagnosed Date Heart failure, not otherwise specified 3 Retention of urine 03/15/2023 Hypo-osmolality and hyponatremia 02/15/2023 03/08/2023 Anemia 08/12/2017 03/08/2023 Essential hypertension 08/12/2017 3 Gastroesophageal reflux disease 08/12/2017 03/08/2023 Pure hypercholesterolemia 08/12/20172022 Social History Tobacco Use Types Packs/Day Years Used Date Smoking Tobacco: Former Cigarettes 1 25 Comments Unknown Sex and Gender Information Value Date Recorded Sex Assigned at Not on file Legal Sex Female 3:33 PM EDT Gender Identity Not on file Sexual Orientation Not on file Last Filed Vital Signs Vital Sign Reading Time Taken Comments Blood Pressure 158/72 06/05/2023 3:00 PM EST Pulse 72 06/05/2023 3:00 PM EST Temperature - - Respiratory Rate - - Oxygen Saturation - - Inhaled Oxygen Concentration - - Weight 50.9 kg (112 lb 3.2 oz) 03/15/2023 10:28 AM EDT Height - - Body Mass Index - - Plan of Treatment Health Maintenance Due Date Last Done Comments Influenza Vaccine (#1) 2024 , 04/05/2020, 05/04/2019, Additional history exists Pneumococcal Vaccine: 65+ Years Completed 12/23/2015, 08/13/2014, 09/19/2008, Additional history exists Hepatitis B Vaccine Aged Out No longe r eligible based on patient's age to complete this topic Insurance MEDICARE [facility] Care Teams Compliance Representative Dealer Relationship Specialty Start Date End Date Araceli Ritchie NP PCP - General Nurse Practitioner 02/15/23
--- OUTSIDE RECORDS SUMMARY | 2024-09-15 12:06 | XMS_ITS | Encounter Summary ---
Author Organization [facility], Address [address] [place] [address] Phone Care Team Providers Care Constitutional Law Professor Name Role Phone Araceli Ritchie WAITER AND CASHIER Primary Care Provider Unavailabl e Encounter Details Date Type Department Care Team (Late st Contact Info) Description 02/18/2023 Documentation Only [facility], - [place] [address]el[address] [place] [phone] Araceli Ritchie NP Social History Tobacco Use Types Packs/Day Years Used Date Smoking Tobacco: Never Assessed Comments Unknown Sex and Gender Information Value Date Recorded Sex Assigned at Not on file Legal Sex Female 3:33 PM EDT Gender Identity Not on file Sexual Orientation Not on file documented as of this encounter Plan of Treatment Not on file documented as of this encounter Visit Diagnoses Not on filedocumented in this encounter Care Teams Constitutional Law Professor Relationship Specialty Start Date End Date Araceli Ritchie NP PCP - General Nurse Practitioner 02/15/23 documented as of this encounter
--- OUTSIDE RECORDS SUMMARY | 2024-09-15 12:06 | XMS_ITS | Encounter Summary ---
Author Organization [facility], Address [address] [place] [address] Phone Care Team Providers Care Lead Assistant Manager Name Role Phone Araceli Ritchie [employer]CR[employer]E [employer]ORER Primary Care Provider Unavailabl e Encounter Details Date Type Department Care Team (Late st Contact Info) Description 02/18/2023 Documentation Only [facility], - [place] [address] [place] [phone] Araceli Ritchie NP Social History Tobacco Use [...] on filedocumented in this encounter Care Teams Lead Assistant Manager Relationship Specialty Start Date End Date Araceli Ritchie NP PCP - General Nurse Practitioner 02/15/23 documented as of this encounter
--- OUTSIDE RECORDS SUMMARY | 2024-09-15 12:07 | XMS_ITS | Clinical Summary ---
Author Organization [facility] it Address [address] [place] [address] Care Team Providers Care In Shop Service Technician Name Role Phone Unavailable Primary Care Provider Unavailabl e Social History Tobacco Use Types Packs/Day Years Used Date Smoking Tobacco: Never Assessed Comments Unknown Sex and Gender Information Value Date Recorded Sex Assigned at Not on file Legal Sex Female 8:19 PM EST Gender Identity Not on file Sexual Orientation Not on file Plan of Treatment Upcoming Encounters Date Type Department Care Team ([facility] st Contact Info) Description 01/15/2025 1:[address] [facility] Radiation Oncology [address] [phone] Fermín Swanson MD [address] [place] [address] Health Maintenance Due Date Last Done Comments COVID-19 Vaccine (#1) 1942 DTaP,Tdap,and Td Vaccines (1 - Tdap) 1956 Pneumococcal Vaccine: 50+ Ye ars (1 of 2 - PCV) 1956 Zoster Vaccines (1 of 2) 1954 RSV Immunization Patients 60 + Years Old (1 - 1-dose 75+ series) 2012 Depression Screening 08/15/2023 Falls Risk Assessment 08/15/2023 Medicare Annual Wellness Visit 08/15/2023 Osteoporosis Screening (Bone Density Screening) 08/15/2023 Social Influencers of Health Screening 08/15/2023 Influenza Vaccine (#1) 2024 HIB Vaccines Aged Out No longer eligi ble based on patient's age to complete this topic HPV Vaccines Aged Out No longer eligi ble based on patient's age to complete this topic Hepatitis A Vaccines Aged Out No long er eligible based on patient's age to complete this topic Hepatitis B Vaccines Aged Out No long er eligible based on patient's age to complete this topic IPV Vaccines Aged Out No longer eligi ble based on patient's age to complete this topic MMR Vaccines Aged Out No longer eligi ble based on patient's age to complete this topic Meningococcal ACWY Vaccine Aged Out N o longer eligible based on patient's age to complete this topic Meningococcal B Vacine Aged Out No lo nger eligible based on patient's age to complete this topic RSV Immunization Patients Un mane 20 months Aged Out No longer eligible b ased on patient's age to complete this topic Varicella Vaccines Aged Out No longer eligible based on patient's age to complete this topic Insurance MEDICARE
== END 2024-09-15 10:16 | disposition home or self-care (01) ==
LOC: HO.LAB 10:15
PROVIDERS: PCP Internal Medicine; Visit Provider Internal Medicine
DX: I10 Essential (primary) hypertension (principal); R73.01 Impaired fasting glucose; E78.00 Pure hypercholesterolemia, unspecified; D64.9 Anemia, unspecified
CPT/HCPCS: 36415; 80053; 80061; 81001; 82728; 83036; 84443; 85025

== ENCOUNTER 2024-11-06 14:28 | Outpatient (AMB) | payer MEDICARE, OTHER, SELFPAY ==
[2024-11-06 14:32] VITALS: BP 154/60; PULSE 59; O2SAT 91; BMI 24.4
--- NOTE | 2024-11-06 14:32 | MHC.OFFVIS ---
Vital Signs 11/06/24 14:32 Height 5 ft 1 in Weight 128 lb 15.527 oz BMI 24.4 BP 154/60 H Blood Pressure Location Lt brachial Position Sitting Pulse 59 Pulse Source Pulse Oximeter Pulse Oximetry (%) 91 L Oxygen Delivery Method Nasal Cannula Intake Visit Reasons: COPD/6MW Allergies cimetidine [From TAGAMET] Allergy (Mild, Verified 11/06/24 14:35) HEADACHES lisinopril [LISINOPRIL] Allergy (Mild, Verified 11/06/24 14:35) COUGH phenytoin [Dilantin] Allergy (Unknown, Verified 11/06/24 14:35) rash hydrochlorothiazide Adverse Reaction (Verified 11/06/24 14:35) Shortness of Breath HPI Comments Details: The patient is an 89-year-old woman with a known history of colon cancer status post resection many years ago, chronic anemia currently on Procrit and congestive heart failure. She had been complaining of worsening shortness of breath. Further workup included a chest x-ray demonstrating some interstitial abnormalities. Therefore she was referred to undergo a CT scan of the chest. The CT scan demonstrated some nodular densities in therefore she was referred to Pulmonary. I personally reviewed the CT scan myself. She does have evidence of bronchitis in addition to this elongated tubular density in the right middle lobe area. In the ED may be within the airway itself. The patient also did have a CT scan of the chest back in 2019 which I also personally reviewed. Unfortunately, technique was suboptimal and there was a lot of motion artifact. But it appears that the nodular density may have been there she is unclear as far as the size in the size. We talked about other potential etiologies that this could be such as mucous plugging smoldering infections. The patient be provided with an Acapella valve and she is going to work on chest physical therapy. Will try to also get a sputum culture for AFB to rule out non tuberculosis mycobacterial infections that can cause Nodular densities in the lungs. The patient continue perform her chest PT and will plan to repeat the CT scan in March with the hope that the nodular density has subsided. cristina. She continues use the oxygen with good effect. She continues use her respiratory therapy, Trelegy with good effect as well. She has not required her rescue inhaler. 08/22/2022 the patient is here for pulmonary follow-up visit. She is still on a hard time with the issue with the biopsy. She did undergo the biopsy and demonstrated no evidence of any malignancy which is reassuring. Although it did have some atypical cells suggestive of reactive macrophages. Although malignancy cannot completely be ruled out with CT guided biopsies. The only definitive way of doing it will be with surgical biopsy. Unfortunately, her PFTs demonstrate a severe decrease in the DLCO in any kind of lung resection would be difficult for the patient to tolerate. She is already on oxygen. Clinically the patient is doing okay from a breathing standpoint. She continues her respiratory therapy. I do agree that repeating her CT scan in 6 weeks will be important to make sure that we follow this pulmonary nodule that was positive in her PET scan. If the nodules any larger and is progressing then we will discuss considering another CT-guided biopsy or talking to the radiation oncologist regarding possibility of stereotactic radiation. The patient is also having hard time sleeping. We did talk about different agents to use. I do believe that trazodone will be effective in helping her sleep. She will try for now. 10/24/2022 the patient is here for a pulmonary follow-up visit. The patient had a recent CT scan of the chest to be which we personally reviewed. It appears that the right-sided pulmonary nodule is enlarging from 1.7 to 1.9 cm in size. This is concerning. We know that this is an avid nodule. At least based on the CT scan from April it was a solitary nodule without any evidence of any spread. Still because her lung capacity she cannot tolerate surgery. Her initial biopsy was nondiagnostic. She either needs to have a repeat biopsy undergo stereotactic radiation without a biopsy. Will go ahead and plan to perform a biopsy in addition to that will% or a tumor conference to see people feel compelled about avoiding biopsy in going right to stereotactic radiation. She does have an oncologist to follow her closely so therefore will have her involving that discussion as well. From a respiratory status the patient is doing well on the oxygen. She does have very limited pulmonary reserve. 01/21/2023 the patient is here for pulmonary follow-up visit. The patient did complete her stereotactic radiation for her pulmonary nodule. She did tolerated therapy well. Although she has been having increasing shortness of breath. Apparently with activity. Moderate severity. She is using her oxygen. Patient is coughing more but denies any significant chest congestion. On examination she does have additional crackles on that left hemithorax. Therefore she is likely developing some radiation pneumonitis in that area. The patient is agreeable in taking a small dose of prednisone to try to minimize the inflammatory changes that occurs after having such therapy. 03/26/2023 the patient is here for pulmonary follow-up visit. Since we last spoke she developed worsening shortness of breath and weakness. She was evaluated at the [facility] ER where she had a chest x-ray demonstrating increased hazy opacity in the right mid lung zone. The patient was started on antibiotics. She was also given additional diuresis and prednisone. Her oxygen requirements improved and the patient was discharged. Now she is feeling better. She still recovering still feels tired. Her respiratory exam actually sounds better. no further evidence of crackles. She already completed the prednisone. The patient also followed up with Cardiology. She is continued on diuresis. She is monitoring her daily weight. She will undergo a chest x-ray today to follow-up for recent pneumonia. She will also need additional imaging studies follow-up with the pulmonary nodule that is status post stereotactic radiation. 09/26/2023 the patient is here for a pulmonary follow-up visit. She has been having worsening respiratory symptoms. Complains of shortness of breath even at rest. Moderate severity. Also complains of cough. Denies any chest pain. She was taken off her diuretic for an unclear reason. In the meantime the patient does demonstrating increasing shortness of breath along with lower extremity edema. We did review her CT scan of the chest from [facility] demonstrating masslike consolidation. She was treated for pneumonia. Will go ahead and give her additional antibiotics at this time because she feels that she is coughing more. Will plan to repeat the CT scan in 6-8 weeks to make sure that there is resolution of the airspace disease. Although it still malignancy is in the differential. She has been using the oxygen with good effect. Although she states that she has been having to use the oxygen more often. 11/06/2024 the patient is here for a pulmonary follow-up visit. Overall, doing well from a respiratory status. She continues use her oxygen regularly. She will be having a repeat CT scan of the chest soon at [facility]. She has areas of reticulation suggesting some underlying interstitial lung disease. In part this could have been the result of the radiation therapy. But is minimal and the patient is doing okay. She is having to use the oxygen more often but she understands that is due to the increased scarring of the lung. Therefore, she will continue using current respiratory therapy. The patient will follow-up with [facility] Oncology radiation. I believe she is scheduled to have another CT scan done there. Will follow-up in 6 months or sooner if any worsening issues arise. [facility] Medical History Lung cancer (HFpEF) heart failure with preserved ejection fraction Osteopenia (~2001) History of colon cancer (~2002) Insomnia COPD (chronic obstructive pulmonary disease) Multinodular thyroid CHF (congestive heart failure) Rheumatic fever Subarachnoid bleed High cholesterol GERD (gastroesophageal reflux disease) HTN (hypertension) Surgical History History of bone marrow biopsy History of colonoscopy History of hemicolectomy History of tonsillectomy S/P thyroid biopsy History of lung biopsy History of appendectomy Family History Father Colon cancer Paternal Aunt Colon cancer Sister Breast cancer Social History Household Members: Spouse Housing: House Are you a primary post acute care nurse practitioner to a significant other at home: No Do you presently have visiting nurse or other home services: No Alcohol intake: former Comment: sleeping Patient Tobacco Use Status: Former Tobacco user Years Smoked: 20 +/- Advance Directives Date on File: 08/20/22 service: No Current occupational status: retired Review of Systems Const Denies chills, Denies fatigue, Denies fever(s), Denies weight gain and Reports weight loss Eyes Denies blurry vision and Denies diplopia ENT Denies dizziness Card Denies chest pain, Denies leg edema, Denies lightheadedness, Denies palpitations, Denies dyspnea on exertion, Denies orthopnea and Denies other Resp Denies cough and Denies dyspnea on exertion GI Denies hematochezia and Denies change in stool character Musc Denies abnormal gait, Denies muscle weakness, Denies numbness, Denies radiating pain into limb and Denies tingling Skin/Breast Denies hirsutism and Denies alopecia Neuro Denies abnormal gait, Denies dizziness, Denies numbness and Denies tingling Psych Denies anxiety and Denies depression Endo Denies fatigue and Denies palpitations Masoud/Lymph Denies easy bruising Physical Exam Vital Signs: Last Vital Signs Pulse 59 11/06/24 14:32 BP 154/60 H 11/06/24 14:32 Pulse Ox 91 L 11/06/24 14:32 Oxygen Delivery Method Nasal Cannula 11/06/24 14:32 BMI result Body Mass Index 24.4 Const General: alert and tired appearing Nutritional Appearance: underweight Orientation/consciousness: patient oriented x3 HEENT Head: Yes normocephalic Eyes General: appearance normal, both eyes and all related structures Neck Neck: Yes normal visual inspection Resp Effort & Inspection: normal respiratory effort and not labored Auscultation: no crackles, no rales, no rhonchi, no wheezes and diminished lung sounds Cardio Rate: regular rate Rhythm: regular rhythm Heart sounds: S1 normal heart sound present and S2 normal heart sound present GI Auscultation: normal bowel sounds Skin General skin exam: no rashes or lesions noted Neuro General: patient oriented x3 Extrem General: Yes normal to inspection and No edema Assessment & Plan Assessment & Plan (1) Chronic bronchitis: Code(s): J42 - Unspecified chronic bronchitis Category: Medical Qualifiers: Chronic bronchitis type: simple Qualified Code(s): J41.0 - Simple chronic bronchitis (2) Shortness of breath: Code(s): R06.02 - Shortness of breath Category: Medical (3) COPD (chronic obstructive pulmonary disease): Code(s): J44.9 - Chronic obstructive pulmonary disease, unspecified Category: Medical Qualifiers: COPD type: chronic bronchitis Chronic bronchitis type: simple Qualified Code(s): J41.0 - Simple chronic bronchitis (4) Insomnia: Code(s): G47.00 - Insomnia, unspecified Category: Medical Qualifiers: Insomnia type: primary Qualified Code(s): F51.01 - Primary insomnia (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 B cylinders with 3l/pulse conserving valve continue Trelegy inhaler start xopenex HFa as needed Trazadone for sleep Serial CT chest by oncology F/U 6-8 months Medications: New levalbuterol tartrate 45 mcg/actuation (Xopenex HFA) 2 puffs inhalation Q6H PRN 15 grams 11RF shortness of breath or wheezing 30 days J45.909 - Unspecified asthma, uncomplicated Coding Level of Care Code Est Pt Level 4 (27573) Complex EM visit Add On G2211 Diagnoses Simple chronic bronchitis J41.0 Chronic bronchitis type: simple Shortness of breath R06.02 Simple chronic bronchitis J41.0 COPD type: chronic bronchitis Chronic bronchitis type: simple Primary insomnia F51.01 Insomnia type: primary Radiation pneumonitis J70.0 Acute on chronic systolic congestive heart failure I50.23 Heart failure chronicity: acute on chronic Heart failure type: systolic Lung cancer C34.90 Time Spent (min) 17
--- OUTSIDE RECORDS SUMMARY | 2024-11-06 14:45 | XMS_ITS | Encounter Summary ---
Author Organization [facility], Address [address] [place] [address] Phone Care Team Providers Care Cupola Man Name Role Phone Araceli Ritchie VENTURE CAPITALIST Primary Care Provider Unavailabl e Encounter Details Date Type Department Care Team (Late st Contact Info) Description 02/18/2023 Documentation Only [facility], - Diego Mcelroy [address] [place] [phone] Araceli Ritchie NP Social History Tobacco Use [...] on filedocumented in this encounter Care Teams Cupola Man Relationship Specialty Start Date End Date Araceli Ritchie NP PCP - General Nurse Practitioner 02/15/23 documented as of this encounter
--- OUTSIDE RECORDS SUMMARY | 2024-11-06 14:45 | XMS_ITS | Clinical Summary ---
Author Organization [facility], Address [address] [place] [address] [place] [address] Phone Care Team Providers Care New Vehicle Sales Consultant Name Role Phone Araceli Ritchie DYSLEXIA TEACHER Primary Care Provider Unavailabl e Allergies Active [...] Due Date Last Done Comments Influenza Vaccine (Season Ended) 2025 04/24/2021, 04/05/2020, 05/04/2019, Additional history exists Pneumococcal Vaccine: 50+ Years Completed 12/23/2015, 08/13/2014, 09/19/2008, Additional history exists Hepatitis B Vaccine Aged Out No longe r eligible based on patient's age to complete this topic Insurance Medicare [facility], [facility] Care Teams New Vehicle Sales Consultant Relationship Specialty Start Date End Date Araceli Ritchie NP PCP - General Nurse Practitioner 02/15/23
--- OUTSIDE RECORDS SUMMARY | 2024-11-06 14:45 | XMS_ITS | Clinical Summary ---
Author Organization [facility] it Address [address] [place] [address] Care Team Providers Care Automatic Packer Operator Name Role Phone Unavailable Primary Care Provider Unavailabl e Social History Tobacco Use Types Packs/Day Years Used Date Smoking Tobacco: Never Assessed Comments Unknown Sex and Gender Information Value Date Recorded Sex Assigned at Not on file Legal Sex Female 8:19 PM EST Gender Identity Not on file Sexual Orientation Not on file Plan of Treatment Upcoming Encounters Date Type Department Care Team ([facility] st Contact Info) Description 01/15/2025 1:[address] [facility] Radiation Oncology [address] [phone] Annette Kuo NP [address] [place] [address] Health Maintenance Due Date Last Done Comments COVID-19 Vaccine (#1) 1940 DTaP,Tdap,and Td Vaccines (1 - Tdap) 1956 Pneumococcal Vaccine: 50+ Ye ars (1 of 2 - PCV) 1956 Zoster Vaccines (1 of 2) 1954 RSV Immunization Adult Patie nts (1 - 1-dose 75+ series) 2012 Depression Screening 08/15/2023 Falls Risk Assessment 08/15/2023 Medicare Annual Wellness Visit 08/15/2023 Osteoporosis Screening (Bone Density Screening) 08/15/2023 Social Influencers of Health Screening 08/15/2023 Influenza Vaccine (Season Ended) 2025 HIB Vaccines Aged Out No longer eligi [...] age to complete this topic Meningococcal B Vaccine Aged Out No l onger eligible based on patient's age to complete this topic RSV Immunization Patients Un mane 20 months Aged Out No longer eligible b ased on patient's age to complete this topic Varicella Vaccines Aged Out No longer eligible based on patient's age to complete this topic Insurance MEDICARE
--- OUTSIDE RECORDS SUMMARY | 2024-11-06 14:45 | XMS_ITS | Encounter Summary ---
Author Organization [facility], Address [address] [place] [address] Phone Care Team Providers Care Lead Janitor Name Role Phone Araceli Ritchie HEAD OF ACQUISITIONS Primary Care Provider Unavailabl e Encounter Details Date Type Department Care Team (Late st Contact Info) Description 02/18/2023 Documentation Only [facility], - Diego Mcelroy [address] [place] [phone] Araceli Ritchie NP Social History Tobacco Use [...] filedocumented in this encounter Care Teams Lead Janitor Relationship Specialty Start Date End Date Araceli Ritchie NP PCP - General Nurse Practitioner 02/15/23 documented as of this encounter
== END 2024-11-06 15:02 | disposition home or self-care (01) ==
LOC: HO.HPS 14:28
PROVIDERS: PCP Internal Medicine; Visit Provider Hospitalist
DX: J41.0 Simple chronic bronchitis (principal); R06.02 Shortness of breath; F51.01 Primary insomnia; J70.0 Acute pulmonary manifestations due to radiation; I50.23 Acute on chronic systolic (congestive) heart failure; C34.90 Malignant neoplasm of unspecified part of unspecified bronchus or lung
CPT/HCPCS: 99214; G2211

== ENCOUNTER → 2024-11-06 14:28 | Outpatient (BNVA) | payer MEDICARE, OTHER, SELFPAY | PROVIDERS: PCP Internal Medicine; Visit Provider Hospitalist | DX: J41.0 Simple chronic bronchitis (principal); F51.01 Primary insomnia; R06.02 Shortness of breath; J70.0 Acute pulmonary manifestations due to radiation; I50.32 Chronic diastolic (congestive) heart failure; C34.90 Malignant neoplasm of unspecified part of unspecified bronchus or lung; Z99.81 Dependence on supplemental oxygen | CPT/HCPCS: 99212 ==

== ENCOUNTER 2024-12-18 10:42 | Inpatient (IN) | payer MEDICARE, OTHER, SELFPAY ==
[2024-12-18] VITALS (8 sets, daily range): BP systolic 104–154; BP diastolic 39–70; PULSE 56–69; RESP 16–23; TEMP 36.6–39; O2SAT 88–96; BMI 23.7; BMI 25.2
--- NOTE | ~2024-12-18 | XR_ITS ---
EXAMINATION: XR CHEST 1 VIEW HISTORY: Pneumonia? Coughing SOB COMPARISON: Comparison is made with the prior examination dated 07/06/2023. FINDINGS: A single AP portable view of the chest performed at 11:20 AM is submitted. There is patchy airspace opacity in the right midlung zone, consistent with pneumonia. Left lung is clear. There is no pleural effusion, pneumothorax, or pulmonary vascular congestion. The heart is normal in size. The aorta is tortuous and calcified. The bones are intact. XR/XR chest 1V IMPRESSION: Pneumonia in the right midlung zone. Follow-up is recommended to document resolution. Electronically signed by: Paul Agarwal MD 12/18/2024 11:30 AM EDT
--- NOTE | 2024-12-18 11:07 | ECG_ITS ---
Test Reason : SOB Blood Pressure : */* mmHG Vent. Rate : 57 BPM Atrial Rate : 57 BPM P-R Int : 138 ms QRS Dur : 92 ms QT Int : 426 ms P-R-T Axes : 53 9 34 degrees QTcB Int : 414 ms Sinus bradycardia Otherwise normal ECG When compared with ECG of 30-Jul-2023 13:34, Previous ECG has undetermined rhythm, needs review Referred By: Dusty Cedillo Electronically Signed By: CLARENCE MCMULLEN MD
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
[2024-12-18 11:55] LABS: MANUAL DIFF FLAG NO
[2024-12-18 11:57] LABS: Basophils Percent Auto 0.5 % (0-2); Eosinophils Absolute Auto 0.2 X10*3/uL (0.0-0.4); Eosinophils Percent Auto 3.2 % (0-4); Hemoglobin 12.1 g/dl (12.0-16.0); Imm Gran Abs Auto 0.05 X10*3/uL (0.00-0.03); Imm Gran Pct Auto 0.9 % (0.0-0.4); Lymphocytes Absolute Auto 0.5 X10*3/uL (1.2-4.9); Lymphocytes Percent Auto 9.3 % (20-40); Mean Corpuscular HGB Conc 32.7 g/dl (31.0-35.0); Mean Corpuscular Hemoglobin 30.9 pg (27.0-33.0); Mean Corpuscular Volume 94.4 fL (80.0-98.0); Mean Platelet Volume 8.8 fL (9.4-12.3); Monocytes Absolute Auto 0.5 X10*3/uL (0.1-1.2); Monocytes Percent Auto 9.7 % (2-11); Neutrophils Absolute Auto 4.3 x10*3/uL (2.0-8.3); Neutrophils Percent Auto 76.4 % (45-73); Platelet Count 189 X10*3/uL (160-400); Red Blood Count 3.92 X10*6/uL (4.20-5.50); Red Cell Distribution Width 14.1 % (11.0-16.0); White Blood Count 5.6 X10*3/uL (4.8-10.8)
[2024-12-18 11:59] LABS: VBG Base Excess 1.9 mmol/L; VBG HCO3 26 mmol/L (22-26); VBG pCO2 42 mmHg; VBG pH 7.41 (7.32-7.43); VBG pO2 51 mmHg
[2024-12-18] MEDS: Azithromycin 500 MG in 0.9 % Sodium Chloride 250 ML 125 MG IV (12:01)
[2024-12-18] MEDS: cefTRIAXone sodium 1 GM VIAL IVPUSH (12:01)
[2024-12-18] MEDS: Acetaminophen 1,000 MG/100 ML PIGGYBACK 400 MG IV (12:09)
[2024-12-18 12:11] LABS: INTERNATIONAL NORM RATIO 0.9 (0.9-1.1); Prothrombin Time 10.4 SEC (10.9-12.4)
[2024-12-18 12:13] LABS: Partial Thromboplastin Time 33.2 SEC (26.0-36.8)
[2024-12-18 12:14] LABS: Venous Blood Gas Refer to POC result
[2024-12-18 12:20] LABS: Lactic Acid 0.7 mmol/L (0.5-2.0)
[2024-12-18 12:23] LABS: Alanine Aminotransferase 11 U/L (0-31); Albumin Level 3.8 g/dL (3.5-5.0); Alkaline Phosphatase 80 U/L (39-117); Anion Gap 13 (12-20); Aspartate Amino Transferase 31 U/L (5-31); Bilirubin Total 0.4 mg/dL (0.0-1.0); Blood Urea Nitrogen 25 mg/dL (9-16); Calcium 9.7 mg/dL (8.4-10.2); Carbon Dioxide 24 mmol/L (22-29); Chloride 105 mmol/L (96-108); Creatinine Clr Calc Pharmacy 28.5; Estimated Glomerular Filt Rate 50; Glucose Random 91 mg/dL (60-115); Potassium 4.8 mmol/L (3.3-5.1); Sodium 137 mmol/L (135-145); Total Protein 8.2 g/dL (6.5-8.0)
--- OUTSIDE RECORDS SUMMARY | 2024-12-18 12:23 | XMS_ITS | Clinical Summary ---
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
[2024-12-18 12:27] LABS: B Type Natriuretic Peptide 136 pg/mL (<100)
[2024-12-18 12:30] LABS: Troponin-I High Sensitivity 4.2 ng/L (<3.5-17.0)
[2024-12-18] MEDS: levalbuterol HCL 1.25 MG/3 ML VIAL.NEB 2.5 MG INHALE (12:42)
[2024-12-18 12:44] LABS: Procalcitonin 0.04 ng/mL
[2024-12-18] MEDS: methylPREDNISolone Sod Succ 125 MG/2 ML VIAL 60 MG IVPUSH (12:50)
--- NOTE | 2024-12-18 14:00 | PHA.MEDREC ---
Addendum entered by Chip Hdz RPh 12/18/24 14:28: MED REC CHECKED BY [facility] Original Note: Pharmacy Consult ? Medication Reconciliation Pharmacy has completed the medication reconciliation. Spoke to patient daughter at bedside to confirm med list. Daughter had a list of patient medications with her. Patient had all her morning medications today.
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
[2024-12-18] MEDS: Enoxaparin Sodium 30 MG/0.3 ML SYRINGE SUBCUT (16:53)
[2024-12-18] MEDS: Ascorbic Acid 500 MG TABLET PO (17:06)
[2024-12-18] MEDS: carvediloL 3.125 MG TABLET PO (17:06)
[2024-12-18] MEDS: Ferrous Sulfate 324 MG TABLET.DR PO (17:06)
[2024-12-18] MEDS: Cholecalciferol (Vitamin D3) 25 MCG TABLET 50 MCG PO (17:06)
[2024-12-18 17:54] LABS: Influenza A PCR NEGATIVE (Negative); Influenza B PCR NEGATIVE (Negative); Resp Syncy Virus RNA Qual PCR NEGATIVE (Negative); SARS COV2 PCR INHOUSE NEGATIVE (Negative)
[2024-12-18] MEDS: methylPREDNISolone Sod Succ 40 MG/ML VIAL IVPUSH (21:25)
[2024-12-18] MEDS: Atorvastatin Calcium 20 MG TABLET PO (21:25)
[2024-12-18] MEDS: 0.9 % Sodium Chloride Flush 3 ML SYRINGE IVFLUSH (21:25)
[2024-12-18] MEDS: traZODone HCL 50 MG TABLET PO (21:25)
[2024-12-18] MEDS: NIFEdipine ER 60 MG TAB.ER.24 PO (21:25)
[2024-12-18] MEDS: Docusate Sodium 100 MG CAPSULE PO (21:25)
[2024-12-18] MEDS: Albuterol/Iprat 2.5/0.5MG 3 ML AMPUL.NEB INHALE (22:05)
--- NOTE | 2024-12-18 23:58 | MHC.PIE ---
p; pt c/o sob asking for UPD. note; no nebs ordered prn? i; dr landers notified. new order duoneb prn q4 e; will cont to liu
[2024-12-19] VITALS (9 sets, daily range): BP systolic 101–139; BP diastolic 56–80; PULSE 60–73; RESP 16–18; TEMP 36.2–37.1; O2SAT 92–95
[2024-12-19] MEDS: Omeprazole 40 MG CAPSULE.DR PO (06:20)
[2024-12-19] MEDS: Fluticasone/Umeclidinium/Vilanterol 100/62.5/25 BLST.W.DEV 1 PUFF INHALE (08:06)
[2024-12-19] MEDS: Valsartan 160 MG TABLET PO (09:29)
[2024-12-19] MEDS: Docusate Sodium 100 MG CAPSULE PO ×2 (09:29→20:05)
[2024-12-19] MEDS: Multivitamin TABLET 1 TAB PO (09:29)
[2024-12-19] MEDS: NIFEdipine ER 60 MG TAB.ER.24 PO ×2 (09:29→20:05)
[2024-12-19] MEDS: methylPREDNISolone Sod Succ 40 MG/ML VIAL IVPUSH ×2 (09:30→20:06)
[2024-12-19] MEDS: carvediloL 3.125 MG TABLET PO ×2 (09:32→17:30)
[2024-12-19] MEDS: 0.9 % Sodium Chloride Flush 3 ML SYRINGE IVFLUSH ×3 (09:32→20:06)
--- NOTE | 2024-12-19 11:07 | MHC.CM.PN ---
pt lives alone has 1 x weekly homemaker thru [employer] pt has home 02 pt would rather go home w/vna than str if str rehab is receommended she choses [facility] dc plan tbd
[2024-12-19] MEDS: Azithromycin 500 MG in 0.9 % Sodium Chloride 250 ML 125 MG IV (11:31)
[2024-12-19] MEDS: Albuterol/Iprat 2.5/0.5MG 3 ML AMPUL.NEB INHALE ×2 (11:31→22:02)
[2024-12-19] MEDS: cefTRIAXone sodium 1 GM VIAL IVPUSH (11:31)
--- NOTE | 2024-12-19 14:13 | HO.PM.IMPN ---
Subjective Subjective Date of Service: 12/19/24 Interval History: copd excerebation Review of Systems sob somewhat improving feel generlaised weak Review of Systems: Yes all other systems are reviewed and are negative Physical Exam Vital Signs: Vital Signs: Last Vital Signs Temp 97.6 F 12/19/24 07:47 Pulse 62 12/19/24 08:06 Resp 18 12/19/24 08:06 BP 132/80 12/19/24 12:22 Pulse Ox 93 12/19/24 07:47 O2 Del Method Nasal Cannula 12/19/24 07:47 O2 Flow Rate 2 12/19/24 07:47 Oxygen Flow Rate 2 12/18/24 10:56 BMI result Body Mass Index 25.2 Appearance: Alert.? Oriented X3.? cvs: rrr, [id number]. res: air entry diminshed ,has mild wheezing abd: no rebound or guarding ,nt, bs present. ext pulses present , no cyanosis . neuro: axo3 , nonfocal. Objective Data Active Medications Acetaminophen (Acetaminophen 325 Mg Tablet) 650 mg PO Q6H PRN PRN Reason: Pain, Mild 1-3,fever,headache Albuterol/Ipratropium (Albuterol/Iprat 2.5/0.5mg 3 Ml Ampul.Neb) 3 ml INHALE RQ4H WHILE AWAKE PRN PRN Reason: Shortness of Breath/Wheezing Last Admin: 12/19/24 11:31 Dose: 3 ml Documented By: ROMEO Ascorbic Acid (Ascorbic Acid 500 Mg Tablet) 500 mg PO DAILY@1800 [facility] Last Admin: 12/18/24 17:06 Dose: 500 mg Documented By: DARNELL Atorvastatin Calcium (Atorvastatin Calcium 20 Mg Tablet) 20 mg PO BEDTIME [facility] Last Admin: 12/18/24 21:25 Dose: 20 mg Documented By: KRISTINE Calcium Carbonate (Calcium Carbonate 750 Mg Tab.Chew) 750 mg PO Q4H PRN PRN Reason: Heartburn Carvedilol (Carvedilol 3.125 Mg Tablet) 3.125 mg PO DAILY@0900,1800 [facility]; Protocol Last Admin: 12/19/24 09:32 Dose: 3.125 mg Documented By: ROMEO Ceftriaxone Sodium (Ceftriaxone Sodium 1 Gm Vial) 1 gm IVPUSH Q24H [facility] Last Admin: 12/19/24 11:31 Dose: 1 gm Documented By: ROMEO Docusate Sodium (Docusate Sodium 100 Mg Capsule) 100 mg PO BID [facility] Last Admin: 12/19/24 09:29 Dose: 100 mg Documented By: ROMEO Enoxaparin Sodium (Enoxaparin Sodium 30 Mg/0.3 Ml Syringe) 30 mg SUBCUT Q24H [facility] Last Admin: 12/18/24 16:53 Dose: 30 mg Documented By: DARNELL Ferrous Sulfate (Ferrous Sulfate 324 Mg Tablet.) 324 mg PO DAILY@1800 [facility] Last Admin: 12/18/24 17:06 Dose: 324 mg Documented By: DARNELL Fluticasone/Umeclidinium/Vilanterol (Fluticasone/Umeclidinium/Vilanterol 100/62.5/25 Blst.W.Dev) 1 puff INHALE RDAILY [facility] Last Admin: 12/19/24 08:06 Dose: 1 puff Documented By: ODETTE Guaifenesin/Dextromethorphan (Guaifenesin Dm 200/20/10 Ml 10 Ml Syrup) 10 ml PO Q4H PRN PRN Reason: Cough Azithromycin 500 mg/ Sodium (Chloride) 250 mls @ 125 mls/hr IV Q24H [facility] Last Infusion: 12/19/24 13:56 Dose: Infused Documented By: ROMEO Magnesium Hydroxide (Milk Of Magnesia 30 Ml Oral.Susp) 30 ml PO DAILY PRN PRN Reason: Constipation Melatonin (Melatonin 3 Mg Tablet) 6 mg PO BEDTIME PRN PRN Reason: Insomnia Methylprednisolone Sodium Succinate (Methylprednisolone Sod Succ 40 Mg/Ml Vial) 40 mg IVPUSH Q12H [facility] Last Admin: 12/19/24 09:30 Dose: 40 mg Documented By: ROMEO Multivitamins/Vitamin C (Multivitamin Tablet) 1 tab PO DAILY [facility] Last Admin: 12/19/24 09:29 Dose: 1 tab Documented By: ROMEO Nifedipine (Nifedipine Er 60 Mg Tab.Er.24) 60 mg PO BID [facility] Last Admin: 12/19/24 09:29 Dose: 60 mg Documented By: ROMEO Omeprazole (Omeprazole 40 Mg Capsule.) 40 mg PO DAILY@0630 [facility] Last Admin: 12/19/24 06:20 Dose: 40 mg Documented By: KRISTINE Ondansetron HCl (Ondansetron Hcl 4 Mg/2 Ml Vial) 4 mg IVPUSH Q8H PRN PRN Reason: Nausea and Vomiting Sodium Chloride (0.9 % Sodium Chloride Flush 3 Ml Syringe) 3 ml IVFLUSH QSHIFT [facility] Last Admin: 12/19/24 09:32 Dose: 3 ml Documented By: ROMEO Trazodone HCl (Trazodone Hcl 50 Mg Tablet) 50 mg PO BEDTIME [facility] Last Admin: 12/18/24 21:25 Dose: 50 mg Documented By: KRISTINE Valsartan (Valsartan 160 Mg Tablet) 160 mg PO DAILY [facility] Last Admin: 12/19/24 09:29 Dose: 160 mg Documented By: ROMEO Vitamin D (Cholecalciferol (Vitamin D3) 25 Mcg Tablet) 50 mcg PO DAILY@1800 [facility] Last Admin: 12/18/24 17:06 Dose: 50 mcg Documented By: DARNELL Labs 12/18/24 11:49 12/18/24 11:49 Labs: Laboratory Results - last 24 hr 12/18/24 Unknown Influenza Type A (PCR) NEGATIVE Influenza Type B (PCR) NEGATIVE RSV RNA Qual (PCR) NEGATIVE SARS-CoV-2 RNA (RT-PCR) NEGATIVE Microbiology Microbiology Results: Microbiology 12/18/24 11:49 Blood Culture - Preliminary Blood - Venous No growth after 24 hours. 12/18/24 11:49 Blood Culture - Preliminary Blood - Venous No growth after 24 hours. Assessment and Plan (1) Acute on chronic hypoxic respiratory failure: Status: Acute (2) Pneumonia: Status: Acute Plan 89-year-old female with a PMH significant for?COPD on nocturnal and p.r.n. home O2, HFpEF, HLD, HTN, iron deficiency anemia, and hx of lung cancer s/p radiation who presents to the ED with?sore throat, cough, weakness, and generally feeling unwell x3 days. Pt is admitted to the hospital treatment and further evaluation of acute on chronic hypoxic respiratory failure in the setting of pneumonia with sepsis. Acute on chronic hypoxic respiratory failure in the setting of COPD exacerbation with community-acquired pneumonia with sepsis Symptoms ongoing x3 days, CXR showing right mid lung pneumonia, desatting to 88% on home p.r.n. 2L O2 Meets sepsis criteria with fever and tachypnea; lactic acid WNL continue ceftriaxone and azithromycin, started 12/18/2024,DuoNebs, Solu-Medrol, guaifenesin,Titrate supplemental O2 >92, wean as tolerated Check RSV/COVID/flu-negative , blood cultures neg@24hrs HFpEF Not in acute exacerbation Continue carvedilol Pt not on home diuretics HTN BP well-controlled on current therapies Continue carvedilol, nifedipine, olmesartan Iron-deficiency anemia Stable, at baseline Continue iron supplementation HLD Continue statin GERD Continue PPI. ongoing need :Acute on chronic hypoxic respiratory failure in the setting of COPD exacerbation with community-acquired pneumonia with sepsis-need oxygen /steriods/antibiotics , repiratory status is not optimal yet. Quality Stroke Does the patient have a stroke diagnosis?: No VTE Prior VTE?: No VTE Risk Level:: Medical - moderate - high VTE Device Contraindication: Treatment Not Indicated VTE Drug Contraindication: N/A - Med Ordered
[2024-12-19] MEDS: Enoxaparin Sodium 30 MG/0.3 ML SYRINGE SUBCUT (15:24)
[2024-12-19] MEDS: Ferrous Sulfate 324 MG TABLET.DR PO (17:27)
[2024-12-19] MEDS: Ascorbic Acid 500 MG TABLET PO (17:27)
[2024-12-19] MEDS: Cholecalciferol (Vitamin D3) 25 MCG TABLET 50 MCG PO (17:27)
[2024-12-19] MEDS: Atorvastatin Calcium 20 MG TABLET PO (20:04)
[2024-12-19] MEDS: traZODone HCL 50 MG TABLET PO (20:05)
[2024-12-20] VITALS (8 sets, daily range): BP systolic 142–177; BP diastolic 66–80; PULSE 55–70; RESP 14–24; TEMP 36.2–36.9; O2SAT 90–96
[2024-12-20] MEDS: Omeprazole 40 MG CAPSULE.DR PO (06:10)
--- NOTE | 2024-12-20 07:36 | HO.PM.IMPN ---
Subjective Subjective Date of Service: 12/20/24 Interval History: copd excerebation Review of Systems sob somewhat improving feel generlaised weak Review of Systems: Yes all other systems are reviewed and are negative Physical Exam Vital Signs: Vital Signs: Last Vital Signs Temp 97.6 F 12/20/24 07:25 Pulse 66 12/20/24 07:25 Resp 14 12/20/24 07:25 BP 168/80 H 12/20/24 07:25 Pulse Ox 96 12/20/24 07:25 O2 Del Method Nasal Cannula 12/20/24 07:25 O2 Flow Rate 2 12/20/24 07:25 Oxygen Flow Rate 2 12/18/24 10:56 BMI result Body Mass Index 25.2 Appearance: Alert.? Oriented X3.? cvs: rrr, [id number]. res: air entry diminshed ,has mild wheezing abd: no rebound or guarding ,nt, bs present. ext pulses present , no cyanosis . neuro: axo3 , nonfocal. Objective Data Active Medications Acetaminophen (Acetaminophen 325 Mg Tablet) 650 mg PO Q6H PRN PRN Reason: Pain, Mild 1-3,fever,headache Albuterol/Ipratropium (Albuterol/Iprat 2.5/0.5mg 3 Ml Ampul.Neb) 3 ml INHALE RQ4H WHILE AWAKE PRN PRN Reason: Shortness of Breath/Wheezing Last Admin: 12/19/24 22:02 Dose: 3 ml Documented By: CATRACHO Ascorbic Acid (Ascorbic Acid 500 Mg Tablet) 500 mg PO DAILY@1800 [facility] Last Admin: 12/19/24 17:27 Dose: 500 mg Documented By: ROMEO Atorvastatin Calcium (Atorvastatin Calcium 20 Mg Tablet) 20 mg PO BEDTIME [facility] Last Admin: 12/19/24 20:04 Dose: 20 mg Documented By: KRISTINE Calcium Carbonate (Calcium Carbonate 750 Mg Tab.Chew) 750 mg PO Q4H PRN PRN Reason: Heartburn Carvedilol (Carvedilol 3.125 Mg Tablet) 3.125 mg PO DAILY@0900,1800 [facility]; Protocol Last Admin: 12/19/24 17:30 Dose: 3.125 mg Documented By: ROMEO Ceftriaxone Sodium (Ceftriaxone Sodium 1 Gm Vial) 1 gm IVPUSH Q24H [facility] Last Admin: 12/19/24 11:31 Dose: 1 gm Documented By: ROMEO Docusate Sodium (Docusate Sodium 100 Mg Capsule) 100 mg PO BID [facility] Last Admin: 12/19/24 20:05 Dose: 100 mg Documented By: KRISTINE Enoxaparin Sodium (Enoxaparin Sodium 30 Mg/0.3 Ml Syringe) 30 mg SUBCUT Q24H [facility] Last Admin: 12/19/24 15:24 Dose: 30 mg Documented By: ROMEO Ferrous Sulfate (Ferrous Sulfate 324 Mg Tablet.) 324 mg PO DAILY@1800 [facility] Last Admin: 12/19/24 17:27 Dose: 324 mg Documented By: ROMEO Fluticasone/Umeclidinium/Vilanterol (Fluticasone/Umeclidinium/Vilanterol 100/62.5/25 Blst.W.Dev) 1 puff INHALE RDAILY [facility] Last Admin: 12/19/24 08:06 Dose: 1 puff Documented By: ODETTE Guaifenesin/Dextromethorphan (Guaifenesin Dm 200/20/10 Ml 10 Ml Syrup) 10 ml PO Q4H PRN PRN Reason: Cough Azithromycin 500 mg/ Sodium (Chloride) 250 mls @ 125 mls/hr IV Q24H [facility] Last Infusion: 12/19/24 13:56 Dose: Infused Documented By: ROMEO Magnesium Hydroxide (Milk Of Magnesia 30 Ml Oral.Susp) 30 ml PO DAILY PRN PRN Reason: Constipation Melatonin (Melatonin 3 Mg Tablet) 6 mg PO BEDTIME PRN PRN Reason: Insomnia Methylprednisolone Sodium Succinate (Methylprednisolone Sod Succ 40 Mg/Ml Vial) 40 mg IVPUSH Q12H [facility] Last Admin: 12/19/24 20:06 Dose: 40 mg Documented By: KRISTINE Multivitamins/Vitamin C (Multivitamin Tablet) 1 tab PO DAILY [facility] Last Admin: 12/19/24 09:29 Dose: 1 tab Documented By: ROMEO Nifedipine (Nifedipine Er 60 Mg Tab.Er.24) 60 mg PO BID [facility] Last Admin: 12/19/24 20:05 Dose: 60 mg Documented By: KRISTINE Omeprazole (Omeprazole 40 Mg Capsule.) 40 mg PO DAILY@0630 [facility] Last Admin: 12/20/24 06:10 Dose: 40 mg Documented By: KRISTINE Ondansetron HCl (Ondansetron Hcl 4 Mg/2 Ml Vial) 4 mg IVPUSH Q8H PRN PRN Reason: Nausea and Vomiting Sodium Chloride (0.9 % Sodium Chloride Flush 3 Ml Syringe) 3 ml IVFLUSH QSHIFT [facility] Last Admin: 12/19/24 20:06 Dose: 3 ml Documented By: KRISTINE Trazodone HCl (Trazodone Hcl 50 Mg Tablet) 50 mg PO BEDTIME [facility] Last Admin: 12/19/24 20:05 Dose: 50 mg Documented By: KRISTINE Valsartan (Valsartan 160 Mg Tablet) 160 mg PO DAILY [facility] Last Admin: 12/19/24 09:29 Dose: 160 mg Documented By: ROMEO Vitamin D (Cholecalciferol (Vitamin D3) 25 Mcg Tablet) 50 mcg PO DAILY@1800 [facility] Last Admin: 12/19/24 17:27 Dose: 50 mcg Documented By: ROMEO Labs 12/18/24 11:49 12/18/24 11:49 Microbiology Microbiology Results: Microbiology 12/18/24 11:49 Blood Culture - Preliminary Blood - Venous No growth after 24 hours. 12/18/24 11:49 Blood Culture - Preliminary Blood - Venous No growth after 24 hours. Assessment and Plan (1) Acute on chronic hypoxic respiratory failure: Status: Acute (2) Pneumonia: Status: Acute Plan 89-year-old female with a PMH significant for?COPD on nocturnal and p.r.n. home O2, HFpEF, HLD, HTN, iron deficiency anemia, and hx of lung cancer s/p radiation who presents to the ED with?sore throat, cough, weakness, and generally feeling unwell x3 days. Pt is admitted to the hospital treatment and further evaluation of acute on chronic hypoxic respiratory failure in the setting of pneumonia with sepsis. Acute on chronic hypoxic respiratory failure in the setting of COPD exacerbation with community-acquired pneumonia with sepsis Symptoms ongoing x3 days, CXR showing right mid lung pneumonia, desatting to 88% on home p.r.n. 2L O2 Meets sepsis criteria with fever and tachypnea; lactic acid WNL continue ceftriaxone and azithromycin, started 12/18/2024,DuoNebs, Solu-Medrol, guaifenesin,Titrate supplemental O2 >92, wean as tolerated Check RSV/COVID/flu-negative , blood cultures neg@24hrs HFpEF Not in acute exacerbation Continue carvedilol Pt not on home diuretics HTN BP well-controlled on current therapies Continue carvedilol, nifedipine, olmesartan Iron-deficiency anemia Stable, at baseline Continue iron supplementation HLD Continue statin GERD Continue PPI. ongoing need :Acute on chronic hypoxic respiratory failure in the setting of COPD exacerbation with community-acquired pneumonia with sepsis-need oxygen /steriods/antibiotics , repiratory status is not optimal yet. Quality Stroke Does the patient have a stroke diagnosis?: No VTE Prior VTE?: No VTE Risk Level:: Medical - moderate - high VTE Device Contraindication: Treatment Not Indicated VTE Drug Contraindication: N/A - Med Ordered
[2024-12-20] MEDS: NIFEdipine ER 60 MG TAB.ER.24 PO ×2 (07:46→20:19)
[2024-12-20] MEDS: Multivitamin TABLET 1 TAB PO (07:47)
[2024-12-20] MEDS: methylPREDNISolone Sod Succ 40 MG/ML VIAL IVPUSH ×2 (07:47→20:20)
[2024-12-20] MEDS: Docusate Sodium 100 MG CAPSULE PO ×2 (07:47→20:20)
[2024-12-20] MEDS: Valsartan 160 MG TABLET PO (07:47)
[2024-12-20] MEDS: 0.9 % Sodium Chloride Flush 3 ML SYRINGE IVFLUSH ×3 (07:48→20:20)
[2024-12-20] MEDS: carvediloL 3.125 MG TABLET PO ×2 (07:51→17:31)
[2024-12-20] MEDS: Fluticasone/Umeclidinium/Vilanterol 100/62.5/25 BLST.W.DEV 1 PUFF INHALE (08:07)
[2024-12-20] MEDS: Azithromycin 500 MG in 0.9 % Sodium Chloride 250 ML 125 MG IV (12:37)
[2024-12-20] MEDS: cefTRIAXone sodium 1 GM VIAL IVPUSH (12:37)
[2024-12-20] MEDS: Ascorbic Acid 500 MG TABLET PO (17:27)
[2024-12-20] MEDS: Enoxaparin Sodium 30 MG/0.3 ML SYRINGE SUBCUT (17:27)
[2024-12-20] MEDS: Cholecalciferol (Vitamin D3) 25 MCG TABLET 50 MCG PO (17:27)
[2024-12-20] MEDS: Ferrous Sulfate 324 MG TABLET.DR PO (17:27)
[2024-12-20] MEDS: Atorvastatin Calcium 20 MG TABLET PO (20:20)
[2024-12-20] MEDS: traZODone HCL 50 MG TABLET PO (20:20)
[2024-12-20] MEDS: Albuterol/Iprat 2.5/0.5MG 3 ML AMPUL.NEB INHALE (21:22)
[2024-12-21 03:21] VITALS: BP 157/72; PULSE 54; RESP 16; TEMP 36.3; O2SAT 96
[2024-12-21] MEDS: Omeprazole 40 MG CAPSULE.DR PO (05:38)
[2024-12-21 07:29] VITALS: BP 161/68; PULSE 69; RESP 16; TEMP 36.3; O2SAT 95
[2024-12-21] MEDS: Fluticasone/Umeclidinium/Vilanterol 100/62.5/25 BLST.W.DEV 1 PUFF INHALE (08:02)
[2024-12-21 08:03] VITALS: PULSE 76; RESP 16; O2SAT 96
[2024-12-21] MEDS: Multivitamin TABLET 1 TAB PO (08:48)
[2024-12-21] MEDS: Docusate Sodium 100 MG CAPSULE PO (08:48)
[2024-12-21] MEDS: NIFEdipine ER 60 MG TAB.ER.24 PO ×2 (08:49→20:28)
[2024-12-21] MEDS: Valsartan 160 MG TABLET PO (08:49)
[2024-12-21] MEDS: 0.9 % Sodium Chloride Flush 3 ML SYRINGE IVFLUSH ×3 (08:49→20:28)
[2024-12-21] MEDS: carvediloL 3.125 MG TABLET PO ×2 (09:06→17:56)
[2024-12-21] MEDS: methylPREDNISolone Sod Succ 40 MG/ML VIAL IVPUSH ×2 (09:07→20:28)
--- NOTE | 2024-12-21 10:51 | W.MHC.F2F ---
Service Date Service Date: 12/21/24 Encounter Date of encounter: 12/21/24 Encounter: pneumonia ,copd Reasons for Services Signs and symptoms assessed: sob or cough or fever or new symptoms Reason for care home: CV/CP assess and/or care, medication management and teach disease management Reason for physical therapy: home safety and mobility, therapeutic exercises, restore joint function, gait/transfer training, assess need for DME, ADL training, energy conservation and other Homebound: Leaving the home is medically contraindicated at this time without the asist of a device and/or another person due th the listed conditions above and below. Certification: Based on the above findings, I certify that this patient is confined to the home and needs intermittent care home care, physical therapy and/or speech therapy, or continues to need occupational therapy. The patient is under my care, and I have initiated the establishment of the plan of care. The patient will be followed by a physician who will periodically review the plan of care. Time Spent With Patient Time: Total time managing care of this patient today ____ minutes.
[2024-12-21] MEDS: Azithromycin 500 MG TABLET PO (11:08)
[2024-12-21] MEDS: cefuroxime axetiL 500 MG TABLET PO (11:08)
--- NOTE | 2024-12-21 11:13 | MHC.CM.PN ---
PT WILL DC HOME TODAY WITH [facility] VIA PRIVATE TRANSPORT
[2024-12-21 12:51] VITALS: BP 149/71; PULSE 60; RESP 16; TEMP 36.6; O2SAT 94
--- NOTE | 2024-12-21 14:32 | P.PNIM_ITS ---
Subjective Subjective Date of Service: 12/21/24 Interval History: copd execerebation/pneumonia Review of Systems sob somewhat improving but still hypoxic requires 5-6 liter with excersion. no fevers Review of Systems: Yes all other systems are reviewed and are negative Physical Exam 2 Vital Signs: Vital Signs: Last Vital Signs Temp 97.8 F 12/21/24 12:51 Pulse 60 12/21/24 12:51 Resp 16 12/21/24 12:51 BP 149/71 H 12/21/24 12:51 Pulse Ox 94 12/21/24 12:51 O2 Del Method Nasal Cannula 12/21/24 12:51 O2 Flow Rate 2 12/21/24 12:51 Oxygen Flow Rate 2 12/18/24 10:56 BMI result Body Mass Index 25.2 Appearance: Alert.? Oriented X3.? cvs: rrr, [id number]. res: air entry diminshed ,has mild wheezing abd: no rebound or guarding ,nt, bs present. ext pulses present , no cyanosis . neuro: axo3 , nonfocal. Objective Data Active Medications Acetaminophen (Acetaminophen 325 Mg Tablet) 650 mg PO Q6H PRN PRN Reason: Pain, Mild 1-3,fever,headache Albuterol/Ipratropium (Albuterol/Iprat 2.5/0.5mg 3 Ml Ampul.Neb) 3 ml INHALE RQ4H WHILE AWAKE PRN PRN Reason: Shortness of Breath/Wheezing Last Admin: 12/20/24 21:22 Dose: 3 ml Documented By: ALEXANDER Ascorbic Acid (Ascorbic Acid 500 Mg Tablet) 500 mg PO DAILY@1800 [facility]CLUDES [facility] Last Admin: 12/20/24 17:27 Dose: 500 mg Documented By: LEATHA Atorvastatin Calcium (Atorvastatin Calcium 20 Mg Tablet) 20 mg PO BEDTIME COUNT INCLUDES THE [facility] Last Admin: 12/20/24 20:20 Dose: 20 mg Documented By: CASTILStephy Azithromycin (Azithromycin 500 Mg Tablet) 500 mg PO Q24H COUNT INCLUDES THE [facility] Last Admin: 12/21/24 11:08 Dose: 500 mg Documented By: DOMINGO Calcium Carbonate (Calcium Carbonate 750 Mg Tab.Chew) 750 mg PO Q4H PRN PRN Reason: Heartburn Carvedilol (Carvedilol 3.125 Mg Tablet) 3.125 mg PO DAILY@0900,1800 [facility]CLUDES [facility]; Protocol Last Admin: 12/21/24 09:06 Dose: 3.125 mg Documented By: DOMINGO Cefuroxime Axetil (Cefuroxime Axetil 500 Mg Tablet) 500 mg PO Q12H COUNT INCLUDES THE [facility] Last Admin: 12/21/24 11:08 Dose: 500 mg Documented By: DOMINGO Docusate Sodium (Docusate Sodium 100 Mg Capsule) 100 mg PO BID COUNT INCLUDES THE [facility] Last Admin: 12/21/24 08:48 Dose: 100 mg Documented By: DOMINGO Enoxaparin Sodium (Enoxaparin Sodium 30 Mg/0.3 Ml Syringe) 30 mg SUBCUT Q24H COUNT [facility]CLUDES THE [facility] Last Admin: 12/20/24 17:27 Dose: 30 mg Documented By: LEATHA Ferrous Sulfate (Ferrous Sulfate 324 Mg Tablet.) 324 mg PO DAILY@1800 COUNT [facility]CLUDES [facility] Last Admin: 12/20/24 17:27 Dose: 324 mg Documented By: LEATHA Fluticasone/Umeclidinium/Vilanterol (Fluticasone/Umeclidinium/Vilanterol 100/62.5/25 Blst.W.Dev) 1 puff INHALE RDAILY COUNT INCLUDES THE [facility] Last Admin: 12/21/24 08:02 Dose: 1 puff Documented By: JOSEFA Guaifenesin/Dextromethorphan (Guaifenesin Dm 200/20/10 Ml 10 Ml Syrup) 10 ml PO Q4H PRN PRN Reason: Cough Magnesium Hydroxide (Milk Of Magnesia 30 Ml Oral.Susp) 30 ml PO DAILY PRN PRN Reason: Constipation Melatonin (Melatonin 3 Mg Tablet) 6 mg PO BEDTIME PRN PRN Reason: Insomnia Multivitamins/Vitamin C (Multivitamin Tablet) 1 tab PO DAILY COUNT INCLUDES THE [facility] Last Admin: 12/21/24 08:48 Dose: 1 tab Documented By: DOMINGO Nifedipine (Nifedipine Er 60 Mg Tab.Er.24) 60 mg PO BID COUNT INCLUDES THE [facility] Last Admin: 12/21/24 08:49 Dose: 60 mg Documented By: DOMINGO Omeprazole (Omeprazole 40 Mg Capsule.) 40 mg PO DAILY@0630 COUNT [facility]CLUDES THE [facility] Last Admin: 12/21/24 05:38 Dose: 40 mg Documented By: CASTBRAYAN Ondansetron HCl (Ondansetron Hcl 4 Mg/2 Ml Vial) 4 mg IVPUSH Q8H PRN PRN Reason: Nausea and Vomiting Prednisone (Prednisone 20 Mg Tablet) 40 mg PO DAILY COUNT INCLUDES THE [facility] Sodium Chloride (0.9 % Sodium Chloride Flush 3 Ml Syringe) 3 ml IVFLUSH QSHIFT COUNT INCLUDES THE [facility] Last Admin: 12/21/24 08:49 Dose: 3 ml Documented By: DOMINGO Trazodone HCl (Trazodone Hcl 50 Mg Tablet) 50 mg PO BEDTIME COUNT INCLUDES THE [facility] Last Admin: 12/20/24 20:20 Dose: 50 mg Documented By: CASTILStephy Valsartan (Valsartan 160 Mg Tablet) 160 mg PO DAILY COUNT INCLUDES THE [facility] Last Admin: 12/21/24 08:49 Dose: 160 mg Documented By: DOMINGO Vitamin D (Cholecalciferol (Vitamin D3) 25 Mcg Tablet) 50 mcg PO DAILY@1800 COUNT [facility]CLUDES [facility] Last Admin: 12/20/24 17:27 Dose: 50 mcg Documented By: JERANTONA Labs 12/18/24 11:49 12/18/24 11:49 Microbiology Microbiology Results: Microbiology 12/18/24 11:49 Blood Culture - Preliminary Blood - Venous No growth after 48 hours. 12/18/24 11:49 Blood Culture - Preliminary Blood - Venous No growth after 48 hours. Assessment and Plan (1) Acute on chronic hypoxic respiratory failure: Status: Acute (2) Pneumonia: Status: Acute Plan 89-year-old female with a PMH significant for?COPD on nocturnal and p.r.n. home O2, HFpEF, HLD, HTN, iron deficiency anemia, and hx of lung cancer s/p radiation who presents to the ED with?sore throat, cough, weakness, and generally feeling unwell x3 days. Pt is admitted to the hospital treatment and further evaluation of acute on chronic hypoxic respiratory failure in the setting of pneumonia with sepsis. Acute on chronic hypoxic respiratory failure in the setting of COPD exacerbation with community-acquired pneumonia with sepsis Symptoms ongoing x3 days, CXR showing right mid lung pneumonia, desatting to 88% on home p.r.n. 2L O2 Meets sepsis criteria with fever and tachypnea; lactic acid WNL Check RSV/COVID/flu-negative , blood cultures neg@24hrs,added repiratory viral panel plan: continue ceftriaxone and azithromycin, started 12/18/2024,DuoNebs, Solu-Medrol, guaifenesin,Titrate supplemental O2 >92, wean as tolerated. HFpEF Not in acute exacerbation Continue carvedilol Pt not on home diuretics HTN BP well-controlled on current therapies Continue carvedilol, nifedipine, olmesartan Iron-deficiency anemia Stable, at baseline Continue iron supplementation HLD Continue statin GERD Continue PPI. ongoing need :Acute on chronic hypoxic respiratory failure in the setting of COPD exacerbation with community-acquired pneumonia with sepsis-need oxygen /steriods/antibiotics , repiratory status is not optimal yet. Quality Stroke Does the patient have a stroke diagnosis?: No VTE Prior VTE?: No VTE Risk Level:: Medical - moderate - high VTE Device Contraindication: Treatment Not Indicated VTE Drug Contraindication: N/A - Med Ordered
--- NOTE | 2024-12-21 14:42 | MHC.CM.PN ---
PT NOT MEDICALLY CLEARED PER PN PT STILL HYPOXIC AND REQUIRING 5-6 LITERS WITH EXERTION. DCP REMAINS HOME [facility]IA PRIVATE TRANSPORT
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
[2024-12-21 15:56] VITALS: BP 132/69; PULSE 71; RESP 18; TEMP 36.7; O2SAT 93
[2024-12-21] MEDS: cefTRIAXone sodium 1 GM VIAL IVPUSH (16:00)
[2024-12-21] MEDS: Enoxaparin Sodium 30 MG/0.3 ML SYRINGE SUBCUT (16:01)
[2024-12-21] MEDS: Cholecalciferol (Vitamin D3) 25 MCG TABLET 50 MCG PO (17:56)
[2024-12-21] MEDS: Ferrous Sulfate 324 MG TABLET.DR PO (17:56)
[2024-12-21] MEDS: Ascorbic Acid 500 MG TABLET PO (17:56)
[2024-12-21 19:43] VITALS: BP 143/71; PULSE 65; RESP 18; TEMP 36.6; O2SAT 92
[2024-12-21] MEDS: Atorvastatin Calcium 20 MG TABLET PO (20:27)
[2024-12-21] MEDS: traZODone HCL 50 MG TABLET PO (20:27)
[2024-12-22] VITALS (12 sets, daily range): BP systolic 126–160; BP diastolic 59–72; PULSE 59–88; RESP 14–20; TEMP 36.1–36.6; O2SAT 91–98
[2024-12-22] MEDS: Omeprazole 40 MG CAPSULE.DR PO (05:36)
[2024-12-22] MEDS: Fluticasone/Umeclidinium/Vilanterol 100/62.5/25 BLST.W.DEV 1 PUFF INHALE (07:44)
[2024-12-22] MEDS: predniSONE 20 MG TABLET 40 MG PO (08:54)
[2024-12-22] MEDS: Valsartan 160 MG TABLET PO (08:54)
[2024-12-22] MEDS: Multivitamin TABLET 1 TAB PO (08:54)
[2024-12-22] MEDS: NIFEdipine ER 60 MG TAB.ER.24 PO ×2 (08:55→21:25)
[2024-12-22] MEDS: Docusate Sodium 100 MG CAPSULE PO ×2 (08:55→21:25)
[2024-12-22] MEDS: methylPREDNISolone Sod Succ 40 MG/ML VIAL IVPUSH ×2 (08:55→21:26)
[2024-12-22] MEDS: carvediloL 3.125 MG TABLET PO ×2 (09:00→17:32)
[2024-12-22] MEDS: 0.9 % Sodium Chloride Flush 3 ML SYRINGE IVFLUSH ×3 (09:00→21:26)
[2024-12-22] MEDS: Albuterol/Iprat 2.5/0.5MG 3 ML AMPUL.NEB INHALE ×3 (11:06→19:46)
[2024-12-22 11:34] LABS: Adenovirus PCR Not Detected (Not Detect.); Bordetella parapertussis PCR Not Detected (Not Detect.); Bordetella pertussis PCR Not Detected (Not Detect.); Chlamydia pneumoniae PCR Not Detected (Not Detect.); Coronavirus 229E PCR Not Detected (Not Detect.); Coronavirus HKU1 PCR Not Detected (Not Detect.); Coronavirus NL63 PCR Not Detected (Not Detect.); Coronavirus OC43 PCR Not Detected (Not Detect.); Human metapneumovirus PCR Detected (Not Detect.); Influenza A PCR Not Detected (Not Detect.); Influenza B PCR Not Detected (Not Detect.); Mycoplasma pneumoniae PCR Not Detected (Not Detect.); Parainfluenza 1 PCR Not Detected (Not Detect.); Parainfluenza 2 PCR Not Detected (Not Detect.); Parainfluenza 3 PCR Not Detected (Not Detect.); Parainfluenza 4 PCR Not Detected (Not Detect.); RSV PCR Not Detected (Not Detect.); Rhino/Enterovirus PCR Not Detected (Not Detect.)
[2024-12-22 11:43] LABS: Influenza A H1 PCR Not Detected (Not Detect.); Influenza A H1-2009 PCR Not Detected (Not Detect.); Influenza A H3 PCR Not Detected (Not Detect.); SARS-CoV-2 PCR Not Detected (Not Detect.)
[2024-12-22] MEDS: Azithromycin 500 MG TABLET PO (12:11)
--- NOTE | 2024-12-22 14:08 | P.PNIM_ITS ---
Subjective Subjective Date of Service: 12/22/24 Interval History: copd Review of Systems hypoxic with excersion sob somewhat improving Physical Exam 2 Vital Signs: Vital Signs: Last Vital Signs Temp 97.8 F 12/22/24 07:57 Pulse 68 12/22/24 11:07 Resp 18 12/22/24 11:07 BP 134/70 12/22/24 08:55 Pulse Ox 96 12/22/24 07:57 O2 Del Method Nasal Cannula 12/22/24 07:57 O2 Flow Rate 2.0 12/22/24 07:57 Oxygen Flow Rate 2 12/18/24 10:56 BMI result Body Mass Index 25.2 Appearance: Alert.? Oriented X3.? cvs: rrr, [id number]. res: air entry diminshed ,has mild wheezing abd: no rebound or guarding ,nt, bs present. ext pulses present , no cyanosis . neuro: axo3 , nonfocal. Objective Data Active Medications Acetaminophen (Acetaminophen 325 Mg Tablet) 650 mg PO Q6H PRN PRN Reason: Pain, Mild 1-3,fever,headache Albuterol/Ipratropium (Albuterol/Iprat 2.5/0.5mg 3 Ml Ampul.Neb) 3 ml INHALE RQ4H WHILE AWAKE PRN PRN Reason: Shortness of Breath/Wheezing Last Admin: 12/20/24 21:22 Dose: 3 ml Documented By: ALEXANDER Albuterol/Ipratropium (Albuterol/Iprat 2.5/0.5mg 3 Ml Ampul.Neb) 3 ml INHALE RQ4H WHILE AWAKE [facility] Last Admin: 12/22/24 11:06 Dose: 3 ml Documented By: GABRIEL Ascorbic Acid (Ascorbic Acid 500 Mg Tablet) 500 mg PO DAILY@1800 [facility] Last Admin: 12/21/24 17:56 Dose: 500 mg Documented By: DOMINGO Atorvastatin Calcium (Atorvastatin Calcium 20 Mg Tablet) 20 mg PO BEDTIME [facility] Last Admin: 12/21/24 20:27 Dose: 20 mg Documented By: LEON Azithromycin (Azithromycin 500 Mg Tablet) 500 mg PO Q24H [facility] Last Admin: 12/22/24 12:11 Dose: 500 mg Documented By: NORTH Calcium Carbonate (Calcium Carbonate 750 Mg Tab.Chew) 750 mg PO Q4H PRN PRN Reason: Heartburn Carvedilol (Carvedilol 3.125 Mg Tablet) 3.125 mg PO DAILY@0900,1800 [facility]; Protocol Last Admin: 12/22/24 09:00 Dose: 3.125 mg Documented By: NORTH Ceftriaxone Sodium (Ceftriaxone Sodium 1 Gm Vial) 1 gm IVPUSH Q24H [facility] Last Admin: 12/21/24 16:00 Dose: 1 gm Documented By: DOMINGO Docusate Sodium (Docusate Sodium 100 Mg Capsule) 100 mg PO BID [facility] Last Admin: 12/22/24 08:55 Dose: 100 mg Documented By: NORTH Enoxaparin Sodium (Enoxaparin Sodium 30 Mg/0.3 Ml Syringe) 30 mg SUBCUT Q24H [facility] Last Admin: 12/21/24 16:01 Dose: 30 mg Documented By: DOMINGO Ferrous Sulfate (Ferrous Sulfate 324 Mg Tablet.Dr) 324 mg PO DAILY@1800 [facility] Last Admin: 12/21/24 17:56 Dose: 324 mg Documented By: DOMINGO Fluticasone/Umeclidinium/Vilanterol (Fluticasone/Umeclidinium/Vilanterol 100/62.5/25 Blst.W.Dev) 1 puff INHALE RDAILY [facility] Last Admin: 12/22/24 07:44 Dose: 1 puff Documented By: GABRIEL Guaifenesin/Dextromethorphan (Guaifenesin Dm 200/20/10 Ml 10 Ml Syrup) 10 ml PO Q4H PRN PRN Reason: Cough Magnesium Hydroxide (Milk Of Magnesia 30 Ml Oral.Susp) 30 ml PO DAILY PRN PRN Reason: Constipation Melatonin (Melatonin 3 Mg Tablet) 6 mg PO BEDTIME PRN PRN Reason: Insomnia Methylprednisolone Sodium Succinate (Methylprednisolone Sod Succ 40 Mg/Ml Vial) 40 mg IVPUSH Q12H [facility] Last Admin: 12/22/24 08:55 Dose: 40 mg Documented By: NORTH Multivitamins/Vitamin C (Multivitamin Tablet) 1 tab PO DAILY [facility] Last Admin: 12/22/24 08:54 Dose: 1 tab Documented By: NORTH Nifedipine (Nifedipine Er 60 Mg Tab.Er.24) 60 mg PO BID [facility] Last Admin: 12/22/24 08:55 Dose: 60 mg Documented By: NORTH Omeprazole (Omeprazole 40 Mg Capsule.Dr) 40 mg PO DAILY@0630 [facility] Last Admin: 12/22/24 05:36 Dose: 40 mg Documented By: LEON Ondansetron HCl (Ondansetron Hcl 4 Mg/2 Ml Vial) 4 mg IVPUSH Q8H PRN PRN Reason: Nausea and Vomiting Prednisone (Prednisone 20 Mg Tablet) 40 mg PO DAILY [facility] Last Admin: 12/22/24 08:54 Dose: 40 mg Documented By: NORTH Sodium Chloride (0.9 % Sodium Chloride Flush 3 Ml Syringe) 3 ml IVFLUSH QSHIFT [facility] Last Admin: 12/22/24 09:00 Dose: 3 ml Documented By: NORTH Trazodone HCl (Trazodone Hcl 50 Mg Tablet) 50 mg PO BEDTIME [facility] Last Admin: 12/21/24 20:27 Dose: 50 mg Documented By: LEON Valsartan (Valsartan 160 Mg Tablet) 160 mg PO DAILY [facility] Last Admin: 12/22/24 08:54 Dose: 160 mg Documented By: NORTH Vitamin D (Cholecalciferol (Vitamin D3) 25 Mcg Tablet) 50 mcg PO DAILY@1800 [facility] Last Admin: 12/21/24 17:56 Dose: 50 mcg Documented By: DOMINGO Labs 12/18/24 11:49 12/18/24 11:49 Labs: Laboratory Results - last 24 hr 12/21/24 16:12 Respiratory Panel Munoz See Note Adenovirus (Rapid PCR) Not Detected B.pert (TEM-PCR) Not Detected B.parapertussis DNA PCR Not Detected C. pneumoniae DNA (PCR) Not Detected Coronavirus OC43 (PCR) Not Detected Coronavirus HKU1 (PCR) Not Detected Coronavirus 229E (PCR) Not Detected Coronavirus NL63 (PCR) Not Detected Human Metapneumovir PCR Detected A Influenza A (RT-PCR) Not Detected Influenza A (H1) PCR Not Detected Influ A (H1/09) PCR Not Detected Influenza A (H3) PCR Not Detected Influenza B (RT-PCR) Not Detected M. pneumoniae (PCR) Not Detected Parainfluenza 1 (PCR) Not Detected Parainfluenza 2 (PCR) Not Detected Parainfluenza 3 (PCR) Not Detected Parainfluenza 4 (PCR) Not Detected RSV (PCR) Not Detected Entero/Rhino (PCR) Not Detected SARS-CoV-2 RNA (RT-PCR) Not Detected Assessment and Plan (1) Acute on chronic hypoxic respiratory failure: Status: Acute Assessment and Plan: 89-year-old female with a PMH significant for?COPD on nocturnal and p.r.n. home O2, HFpEF, HLD, HTN, iron deficiency anemia, and hx of lung cancer s/p radiation who presents to the ED with?sore throat, cough, weakness, and generally feeling unwell x3 days. Pt is admitted to the hospital treatment and further evaluation of acute on chronic hypoxic respiratory failure in the setting of pneumonia with sepsis. Acute on chronic hypoxic respiratory failure in the setting of COPD exacerbation with community-acquired pneumonia with sepsis Symptoms ongoing x3 days, CXR showing right mid lung pneumonia, desatting to 88% on home p.r.n. 2L O2 Meets sepsis criteria with fever and tachypnea; lactic acid WNL Check RSV/COVID/flu-negative , blood cultures neg@24hrs,added repiratory viral panel plan: continue ceftriaxone and azithromycin, started 12/18/2024,DuoNebs, Solu-Medrol, guaifenesin,Titrate supplemental O2 >92, wean as tolerated. HFpEF Not in acute exacerbation Continue carvedilol Pt not on home diuretics HTN BP well-controlled on current therapies Continue carvedilol, nifedipine, olmesartan Iron-deficiency anemia Stable, at baseline Continue iron supplementation HLD Continue statin GERD Continue PPI. ongoing need :Acute on chronic hypoxic respiratory failure in the setting of COPD exacerbation with community-acquired pneumonia with sepsis-need oxygen /steriods/antibiotics , repiratory status is not optimal yet. Quality Stroke Does the patient have a stroke diagnosis?: No VTE Prior VTE?: No VTE Risk Level:: Medical - moderate - high VTE Device Contraindication: Treatment Not Indicated VTE Drug Contraindication: N/A - Med Ordered
[2024-12-22] MEDS: cefTRIAXone sodium 1 GM VIAL IVPUSH (14:45)
[2024-12-22] MEDS: Throat Lozenge, Medicated LOZENGE 1 LOZENGE MUCOUS MEM (17:30)
[2024-12-22] MEDS: Ascorbic Acid 500 MG TABLET PO (17:30)
[2024-12-22] MEDS: Ferrous Sulfate 324 MG TABLET.DR PO (17:30)
[2024-12-22] MEDS: Cholecalciferol (Vitamin D3) 25 MCG TABLET 50 MCG PO (17:30)
[2024-12-22] MEDS: Enoxaparin Sodium 30 MG/0.3 ML SYRINGE SUBCUT (17:30)
[2024-12-22] MEDS: traZODone HCL 50 MG TABLET PO (21:25)
[2024-12-22] MEDS: Atorvastatin Calcium 20 MG TABLET PO (21:46)
[2024-12-23] VITALS (8 sets, daily range): BP systolic 141–151; BP diastolic 64–70; PULSE 70–89; RESP 15–18; TEMP 36.7; O2SAT 84–95
[2024-12-23] MEDS: Omeprazole 40 MG CAPSULE.DR PO (06:03)
[2024-12-23] MEDS: Fluticasone/Umeclidinium/Vilanterol 100/62.5/25 BLST.W.DEV 1 PUFF INHALE (07:32)
[2024-12-23] MEDS: Albuterol/Iprat 2.5/0.5MG 3 ML AMPUL.NEB INHALE ×3 (07:37→15:14)
[2024-12-23] MEDS: Valsartan 160 MG TABLET PO (08:11)
[2024-12-23] MEDS: Docusate Sodium 100 MG CAPSULE PO (08:11)
[2024-12-23] MEDS: NIFEdipine ER 60 MG TAB.ER.24 PO (08:11)
[2024-12-23] MEDS: Multivitamin TABLET 1 TAB PO (08:11)
[2024-12-23] MEDS: Throat Lozenge, Medicated LOZENGE 1 LOZENGE MUCOUS MEM (08:11)
--- NOTE | 2024-12-23 09:38 | PM.DS ---
DS: Providers Provider Date of Service: 12/23/24 Date of admission: 12/18/24 12:46 Date of discharge: 12/23/24 Primary care physician: Uri Houston MD Consults: 12/21/24 11:36 Consult to Pulmonology Routine Consulting Provider: [facility] Reason for consultation: acute hypoxemic respiratory failure sec to copd/pneumonia Has provider been notified: No DS: Diagnosis Discharge Diagnosis (1) Acute on chronic hypoxic respiratory failure: Status: Acute DS: Summary Hospital Course Hospital Course: from initial hpi: 89-year-old female with a PMH significant for?COPD on nocturnal and p.r.n. home O2, HFpEF, HLD, HTN, iron deficiency anemia, and hx of lung cancer s/p radiation who presents to the ED with?sore throat, cough, weakness, and generally feeling unwell x3 days. Pt reports symptoms began on Saturday with URI type symptoms: Sore throat, runny nose, and mostly nonproductive cough worse at night. Pt reports has failed ?lousy? and also complains of rib pain associated with cough. States has been wheezy, but no significant increasing SOB above baseline. However, pt has been using her home O2 more than prior. Has felt chilly, but never measured for a fever. Denies chest pain/pressure. No nausea, vomiting, abdominal pain. In the ED pt was febrile up to 102.2, tachypneic up to 23, and desatting to 88% on home 2L O2. Labs were significant for CRP of 1.50, otherwise grossly unremarkable around baseline for pt. No leukocytosis. Stable H&H. No significant electrolyte abnormalities. Renal function around baseline. Lactic acid WNL. Hepatic function baseline. Initial troponin WNL at 4.2. BNP 136 though decreased from prior. CXR showed pneumonia in right mid lung. EKG demonstrated sinus bradycardia of 57 without evidence of significant ST elevations or depressions. Pt was treated in the ED with Solu-Medrol, Xopenex, acetaminophen, ceftriaxone, and azithromycin. Pt is admitted to the hospital treatment and further evaluation of acute on chronic hypoxic respiratory failure in the setting of pneumonia with sepsis. hospital course: Patient was admitted for acute on chronic hypoxic respiratory failure secondary to sepsis due to COPD with acute decompensation due to human metapneumovirus Was treated with ceftriaxone azithromycin, Solu-Medrol, DuoNebs Patient was weaned to room air at rest but still requiring 3 L on exertion and will go home with home oxygen. For chronic diastolic CHF remained euvolemic. For hypertension was continued on carvedilol, nifedipine, olmesartan. Patient is feeling better and will be discharged home on 4 more days of prednisone and azithromycin. Time Attestation Discharge Coordination Time (in mins): 32 Quality: Safe Use of Opioids Does Pt have an Active Cancer Diagnosis on the Problem List?: No Quality: Stroke Does the patient have a stroke diagnosis?: No Physical Exam Vital Signs: Vital Signs: Last Vital Signs Temp 98.1 F 12/23/24 07:19 Pulse 75 12/23/24 07:37 Resp 16 12/23/24 07:37 BP 144/64 H 12/23/24 07:19 Pulse Ox 94 12/23/24 07:19 O2 Del Method Nasal Cannula 12/23/24 07:19 O2 Flow Rate 2 12/23/24 07:19 Oxygen Flow Rate 2 12/18/24 10:56 BMI result Body Mass Index 25.2 General: AO X 3, no acute distress Resp: mild crackles bilateral, no accessory muscles used CVS: S1,S2,RRR GI: soft, non tender, non distended Neuro: motor grossly intact, alert Psych: appropriate affect, appropriate insight DS: Data Data Completed and Pending Labs on day of discharge: Laboratory Results - last 24 hr 12/21/24 16:12 Respiratory Panel Munoz See Note Adenovirus (Rapid PCR) Not Detected B.pert (TEM-PCR) Not Detected B.parapertussis DNA PCR Not Detected C. pneumoniae DNA (PCR) Not Detected Coronavirus OC43 (PCR) Not Detected Coronavirus HKU1 (PCR) Not Detected Coronavirus 229E (PCR) Not Detected Coronavirus NL63 (PCR) Not Detected Human Metapneumovir PCR Detected A Influenza A (RT-PCR) Not Detected Influenza A (H1) PCR Not Detected Influ A (H1/09) PCR Not Detected Influenza A (H3) PCR Not Detected Influenza B (RT-PCR) Not Detected M. pneumoniae (PCR) Not Detected Parainfluenza 1 (PCR) Not Detected Parainfluenza 2 (PCR) Not Detected Parainfluenza 3 (PCR) Not Detected Parainfluenza 4 (PCR) Not Detected RSV (PCR) Not Detected Entero/Rhino (PCR) Not Detected SARS-CoV-2 RNA (RT-PCR) Not Detected Preliminary micro results at discharge 12/18/24 11:49 Blood Culture - Preliminary Blood - Venous No growth after 48 hours. 12/18/24 11:49 Blood Culture - Preliminary Blood - Venous No growth after 48 hours. Discharge Plan Discharge Anticipated Discharge Date/Time: 12/21/24 09:44 Patient Disposition: Home Health Service Discharge Diagnosis: pneumonia Referrals: [facility] [Outside] - 1 Week Uri Houston MD [Primary Care Provider] - 1 Week Discharge Medications: New azithromycin 500 mg Tablet 500 mg PO Q24H Qty: 4 0RF prednisone 20 mg Tablet 40 mg PO DAILY Qty: 8 0RF Continued nifedipine 60 mg tablet extended release 60 mg PO BID Qty: 180 3RF trazodone 50 mg tablet 50 mg PO BEDTIME 30 Days Qty: 30 6RF Rx Instructions: Take 1 hour before sleep omeprazole 40 mg capsule,delayed release(DR/EC) 40 mg PO DAILY@0630 simvastatin 40 mg tablet 40 mg PO BEDTIME olmesartan 40 mg tablet 40 mg PO DAILY multivitamin Tablet 1 tab PO DAILY ferrous sulfate 325 mg (65 mg iron) Tablet 325 mg PO DAILY@1800 cholecalciferol (vitamin D3) 50 mcg (2,000 unit) Tablet 50 mcg PO DAILY@1800 ascorbic acid (vitamin C) 500 mg tablet 500 mg PO DAILY@1800 docusate sodium [Colace] 100 mg capsule 100 mg PO BID carvedilol 3.125 mg tablet 3.125 mg PO DAILY@0900,1800 Protocol: Hold for SBP/HR < HOLD for SBP < : 90 HOLD for HR < : 60 Trelegy Ellipta 100-62.5-25 mcg blister with device 1 ea inhalation DAILY levalbuterol tartrate [Xopenex HFA] 45 mcg/actuation HFA aerosol inhaler 2 puff inhalation Q6H PRN (Reason: shortness of breath or wheezing) 30 Days Qty: 15 11RF (DME) Oxygen Home Use Kit See Rx Instructions .Route Rx Instructions: As directed Discharge Orders: Discharge Order (Routine); Ordered 12/23/24 Ordered By: Jeremy Mattson Diet: Advance to usual diet Activity on Discharge: As tolerated Stand Alone Forms: Patient Portal Discharge page Print Language: Gambian Care Plan Goals: Acute on chronic hypoxic respiratory failure in the setting of COPD exacerbation with human metapneumovirus will be going home with vna /pt., home o2 Health Concerns: azithromycin 500 mg po daily x4 more days. prednisone 40 mg po [id number]. repeat chest imaging in 3-4 weeks to see resolution if any new symptoms -sob or fever or chest pain or any other new symptoms-please come to nearest ED. Plan of Treatment: as above. Assessment: as above. Patient Instructions: Pneumonia (DC)
--- NOTE | 2024-12-23 09:57 | P.F2F_ITS ---
Service Date Service Date: 12/23/24 Encounter Date of encounter: 12/23/24 Reasons for Services Signs and symptoms assessed: sob on exertion Reason for longterm: medication management, medication treatment and teach disease management Homebound: Leaving the home is medically contraindicated at this time without the asist of a device and/or another person due th the listed conditions above and below. Reason homebound: shortness of breath with minimal effort Certification: Based on the above findings, I certify that this patient is confined to the home and needs intermittent longterm care, physical therapy and/or speech therapy, or continues to need occupational therapy. The patient is under my care, and I have initiated the establishment of the plan of care. The patient will be followed by a physician who will periodically review the plan of care. Time Spent With Patient Time: Total time managing care of this patient today ____ minutes.
[2024-12-23] MEDS: predniSONE 20 MG TABLET 40 MG PO (10:46)
[2024-12-23] MEDS: carvediloL 3.125 MG TABLET PO (10:46)
[2024-12-23] MEDS: Azithromycin 500 MG TABLET PO (10:47)
--- NOTE | 2024-12-23 10:50 | MHC.CM.PN ---
PT DCD HOME TODAY WITH [facility]
== END 2024-12-23 16:07 | disposition home health service (06) | DRG 871 ==
LOC: HO.ED 12:05 → HO.EDOVER 12:50 → HO.S3 14:06
PROVIDERS: Internal Medicine; Physician Assistant; Admitting Provider Student in an Organized Health Care Education/Training Program; Emergency Provider Emergency Medicine; PCP Internal Medicine; Visit Provider Internal Medicine
DX: A41.9 Sepsis, unspecified organism (principal); J18.9 Pneumonia, unspecified organism; J96.21 Acute and chronic respiratory failure with hypoxia; J44.0 Chronic obstructive pulmonary disease with (acute) lower respiratory infection; J44.1 Chronic obstructive pulmonary disease with (acute) exacerbation; I50.32 Chronic diastolic (congestive) heart failure; Z66 Do not resuscitate; B97.81 Human metapneumovirus as the cause of diseases classified elsewhere; K21.9 Gastro-esophageal reflux disease without esophagitis; I11.0 Hypertensive heart disease with heart failure; D50.9 Iron deficiency anemia, unspecified; E78.5 Hyperlipidemia, unspecified; Z20.822 Contact with and (suspected) exposure to COVID-19; Z99.81 Dependence on supplemental oxygen; Z85.118 Personal history of other malignant neoplasm of bronchus and lung; Z87.891 Personal history of nicotine dependence; Z79.899 Other long term (current) drug therapy
CPT/HCPCS: 0241U; 36415; 71045; 80053; 82803; 83605; 83880; 84145; 84484; 85025; 85610; 85730; 86140; 87040; 87633; 93005; 94640; 94664; 97116; 97161; 99285; J0131; J0456; J0696; J1650; J2919

== ENCOUNTER → 2024-12-18 11:07 | Outpatient (BNV) | payer MEDICARE, OTHER, SELFPAY | PROVIDERS: Emergency Provider Emergency Medicine; PCP Internal Medicine; Visit Provider Radiology Diagnostic Radiology | DX: J18.9 Pneumonia, unspecified organism (principal) | CPT/HCPCS: 71045 ==

== ENCOUNTER → 2024-12-18 11:07 | Outpatient (BNV) | payer MEDICARE, OTHER, SELFPAY | PROVIDERS: Admitting Provider Student in an Organized Health Care Education/Training Program; Emergency Provider Emergency Medicine; PCP Internal Medicine; Visit Provider Internal Medicine Cardiovascular Disease | DX: R00.1 Bradycardia, unspecified (principal) | CPT/HCPCS: 93010 ==

== ENCOUNTER → 2024-12-18 12:46 | Outpatient (BNV) | payer MEDICARE, OTHER, SELFPAY | PROVIDERS: Admitting Provider Student in an Organized Health Care Education/Training Program; Emergency Provider Emergency Medicine; PCP Internal Medicine; Visit Provider Internal Medicine Pulmonary Disease | DX: J96.21 Acute and chronic respiratory failure with hypoxia (principal); J41.0 Simple chronic bronchitis | CPT/HCPCS: 99222 ==

== ENCOUNTER → 2024-12-18 12:46 | Outpatient (BNV) | payer MEDICARE, OTHER, SELFPAY | PROVIDERS: Admitting Provider Student in an Organized Health Care Education/Training Program; Emergency Provider Emergency Medicine; PCP Internal Medicine; Visit Provider Internal Medicine | DX: J18.9 Pneumonia, unspecified organism (principal); J96.21 Acute and chronic respiratory failure with hypoxia | CPT/HCPCS: 99223; 99231; 99232; 99239; G0180 ==

== ENCOUNTER 2025-01-18 07:53 | Outpatient (REF) | payer MEDICARE, OTHER, SELFPAY ==
--- NOTE | ~2025-01-18 | XR_ITS ---
CLINICAL HISTORY: PNEUMONIA 2 view chest x-ray Comparison: None provided Findings: Patchy right lower lobe density. Normal size heart. No acute fracture. IMPRESSION: Right lower lobe pneumonia. Clinical follow-up recommended. This document has been electronically signed by: Jaleel Lester MD on 01/19/2025 11:30:26
--- OUTSIDE RECORDS SUMMARY | 2025-01-18 07:58 | XMS_ITS | Clinical Summary ---
Author Organization [facility], Address [address] [place] [address] [place] [address] Phone Care Team Providers Care Flight Technician Name Role Phone Araceli Ritchie WATERPROOFER HELPER Primary Care Provider Unavailabl e Allergies Active [...] age to complete this topic Insurance Medicare [employer] Care Teams Flight Technician Relationship Specialty Start Date End Date Araceli Ritchie NP PCP - General Nurse Practitioner 02/15/23
[2025-01-18 08:31] LABS: MANUAL DIFF FLAG NO
[2025-01-18 08:57] LABS: Basophils Absolute Auto 0.1 X10*3/uL (0.0-0.2); Basophils Percent Auto 1.4 % (0-2); Eosinophils Absolute Auto 0.3 X10*3/uL (0.0-0.4); Eosinophils Percent Auto 6.8 % (0-4); Hematocrit 35.5 % (37.0-47.0); Hemoglobin 11.5 g/dl (12.0-16.0); Imm Gran Abs Auto 0.07 X10*3/uL (0.00-0.03); Imm Gran Pct Auto 1.4 % (0.0-0.4); Lymphocytes Absolute Auto 0.5 X10*3/uL (1.2-4.9); Lymphocytes Percent Auto 10.6 % (20-40); Mean Corpuscular HGB Conc 32.4 g/dl (31.0-35.0); Mean Corpuscular Hemoglobin 31.2 pg (27.0-33.0); Mean Corpuscular Volume 96.2 fL (80.0-98.0); Mean Platelet Volume 9.1 fL (9.4-12.3); Monocytes Absolute Auto 0.4 X10*3/uL (0.1-1.2); Monocytes Percent Auto 8.2 % (2-11); Neutrophils Absolute Auto 3.6 x10*3/uL (2.0-8.3); Neutrophils Percent Auto 71.6 % (45-73); Platelet Count 226 X10*3/uL (160-400); Red Blood Count 3.69 X10*6/uL (4.20-5.50); Red Cell Distribution Width 13.8 % (11.0-16.0)
[2025-01-18 09:08] LABS: Estimated Average Glucose 114 mg/dL; Hemoglobin A1c % 5.6 % (<6.0)
[2025-01-18 09:32] LABS: Alanine Aminotransferase 11 U/L (0-31); Albumin Level 3.7 g/dL (3.5-5.0); Alkaline Phosphatase 65 U/L (39-117); Anion Gap 8 (12-20); Aspartate Amino Transferase 23 U/L (5-31); Bilirubin Total 0.3 mg/dL (0.0-1.0); Blood Urea Nitrogen 25 mg/dL (9-16); Calcium 9.4 mg/dL (8.4-10.2); Carbon Dioxide 27 mmol/L (22-29); Chloride 109 mmol/L (96-108); Cholesterol 173 mg/dL (<200); Estimated Glomerular Filt Rate 51; Glucose Random 87 mg/dL (60-115); HDL Cholesterol 60 mg/dL (>40); LDL Cholesterol Calculated 94 mg/dL (<100); Potassium 4.5 mmol/L (3.3-5.1); Sodium 139 mmol/L (135-145); Total Protein 7.3 g/dL (6.5-8.0); Triglycerides 99 mg/dL (<150)
[2025-01-18 09:50] LABS: Thyroid Stimulating Hormone 2.99 uIU/mL (0.32-4.0)
== END 2025-01-18 07:54 | disposition home or self-care (01) ==
LOC: HO.XRAY 07:53
PROVIDERS: PCP Internal Medicine; Visit Provider Internal Medicine
DX: I10 Essential (primary) hypertension (principal); E78.00 Pure hypercholesterolemia, unspecified; R73.01 Impaired fasting glucose; J18.9 Pneumonia, unspecified organism
CPT/HCPCS: 36415; 71046; 80053; 80061; 83036; 84443; 85025

== ENCOUNTER → 2025-01-18 08:40 | Outpatient (BNV) | payer MEDICARE, OTHER, SELFPAY | PROVIDERS: PCP Internal Medicine; Visit Provider Radiology Vascular & Interventional Radiology | DX: J18.1 Lobar pneumonia, unspecified organism (principal) | CPT/HCPCS: 71046 ==

== ENCOUNTER 2025-03-17 15:37 | Outpatient (AMB) | payer MEDICARE, OTHER, SELFPAY ==
[2025-03-17 16:19] VITALS: BP 145/71; PULSE 70; BMI 23.7
--- NOTE | 2025-03-17 16:19 | A.OFFVIS_ITS ---
Vital Signs 03/17/25 16:19 Height 5 ft 1 in Weight 125 lb 10.616 oz BMI 23.7 BP 145/71 H Blood Pressure Location Lt brachial Position Sitting Pulse 70 Pulse Source Pulse Oximeter Intake Visit Reasons: r/s 02/03/25 6 mos followup Allergies cimetidine (From TAGAMET) Allergy (Mild, Verified 03/15/25 17:53) HEADACHES lisinopril (LISINOPRIL) Allergy (Mild, Verified 03/15/25 17:53) COUGH phenytoin (Dilantin) Allergy (Unknown, Verified 03/15/25 17:53) rash hydrochlorothiazide Adverse Reaction (Verified 03/15/25 17:53) Shortness of Breath Medication List - Last Reconciled 03/17/25 by Andry Morse MD ascorbic acid (vitamin C) 500 mg PO DAILY@1800 carvedilol 3.125 mg See Protocol PO DAILY@0900,1800 cholecalciferol (vitamin D3) 50 mcg PO DAILY@1800 docusate sodium (Colace) 100 mg PO BID ferrous sulfate 325 mg PO DAILY@1800 [id number] 100-62.5-25 mcg (Trelegy Ellipta) 1 ea inhalation DAILY levalbuterol tartrate 45 mcg/actuation (Xopenex HFA) 2 puffs inhalation Q6H PRN 30 days multivitamin 1 tab PO DAILY nifedipine ER 60 mg PO BID olmesartan 40 mg PO DAILY omeprazole 40 mg PO DAILY@0630 Oxygen Home Use As directed simvastatin 40 mg PO BEDTIME trazodone 50 mg PO BEDTIME 30 days HPI Comments Details: Pleasant 89-year-old female with background diastolic heart failure for follow- up. Previously was doing well from heart failure point of view. She returns now and has been short of breath. Unfortunately had pneumonia and subsequent to that continued to have shortness of breath and subsequently was put on home oxygen. Her oxygen demand is increasing and she is using oxygen all the time now. She is following closely with Dr. Alfaro. From heart failure point of view she has been stable. She has been taking Lasix as before and has no significant nighttime symptoms. She said she is using trazodone now and sleeping better. 03/06/2023: She is here for follow-up. She just left Hospital after being diagnosed with pneumonia. She said she spent some time in rehab which she lost lot of weight because she did not like the food. She was also not given any ensure or supplements there. She was taken off the Lasix at discharge from the hospital because of hyponatremia. Clinically does not has any significant dyspnea or orthopnea. No peripheral edema. She continues to be on supplemental oxygen due to her COPD. 06/19/2023: She returns for follow-up. She appears to be more frail and is on supplemental oxygen. She is complaining of left-sided lower chest pain. She is saying that she has been coughing more and has been bringing up some clear phlegm. This is more at nighttime. No fevers or chills. She said she reach out to Dr. Alfaro office to get a chest x-ray but she has not heard back about that. Her blood pressure in the office elevated. Her home blood pressure readings are completely normal. Manual blood pressure by myself was 180/80. She has been taking medications regularly. 02/10/24: She is here for follow-up. Blood pressure previously was elevated and we increased the nifedipine to b.i.d. dosing. Since then her blood pressure improved and actually had primary care physician took her off the hydralazine after that. She is taking olmesartan 40 mg daily and carvedilol 3.125 mg twice a day. Clinically not in heart failure. Overall stable. 08/10/2024: Here for follow-up. Blood pressure is little elevated but home blood pressure readings are all in normal range. No chest pains or shortness of breath. Clinically euvolemic. 03/17/2025: She is here for follow-up. Denying any changes in her breathing. Blood pressure mildly elevated. She is saying that she had CT scan of the chest and there is some concern about recurrent cancer. She said she is repeating some testing and currently does not know the details. [facility] Medical History Lung cancer (HFpEF) heart failure with preserved ejection fraction Osteopenia (~2001) History of colon cancer (~2002) Insomnia COPD (chronic obstructive pulmonary disease) Multinodular thyroid CHF (congestive heart failure) Rheumatic fever Subarachnoid bleed High cholesterol GERD (gastroesophageal reflux disease) HTN (hypertension) Surgical History History of bone marrow biopsy History of colonoscopy History of hemicolectomy History of tonsillectomy S/P thyroid biopsy History of lung biopsy History of appendectomy Family History Father Colon cancer Paternal Aunt Colon cancer Sister Breast cancer Social History Household Members: None Housing: House Are you a primary home care manager rn to a significant other at home: No Do you presently have visiting nurse or other home services: No Alcohol intake: former Comment: sleeping Patient Tobacco Use Status: Former Tobacco user Years Smoked: 20 +/- Advance Directives Date on File: 08/20/22 service: No Current occupational status: retired Review of Systems Const Denies weakness ENT Denies dizziness Card Denies chest pain, Denies chest pain with activity, Denies syncope, Denies rapid heart rate, Denies pedal edema, Denies edema, Denies leg edema, Denies lightheadedness, Denies palpitations, Denies dyspnea, Denies dyspnea on exertion and Denies orthopnea Resp Denies cough, Denies dyspnea and Denies dyspnea on exertion GI Denies hematochezia and Denies change in stool character Musc Denies abnormal gait, Denies muscle cramps, Denies muscle weakness, Denies numb ness, Denies radiating pain into limb and Denies tingling Neuro Denies abnormal gait, Denies dizziness, Denies syncope, Denies numbness, Denies tingling and Denies weakness Endo Denies palpitations Physical Exam Vital Signs: Last Vital Signs Pulse 70 03/17/25 16:19 BP 145/71 H 03/17/25 16:19 BMI result Body Mass Index 23.7 GENERAL APPEARANCE: in no acute distress, on supplemental oxygen. NECK: no carotid bruit, no jugular venous distention. SKIN: no suspicious lesions, warm and dry. HEART: no murmurs, regular rate and rhythm. LUNGS: clear to auscultation bilaterally. ABDOMEN: soft, nontender. EXTREMITIES: no edema. PERIPHERAL PULSES: equal. NEUROLOGIC: No gross deficits, AAO X 3 Assessment & Plan Assessment & Plan (1) HTN (hypertension): Code(s): I10 - Essential (primary) hypertension Category: Medical (2) CHF (congestive heart failure): Code(s): I50.9 - Heart failure, unspecified Category: Medical Qualifiers: Heart failure chronicity: acute on chronic Heart failure type: systolic Qualified Code(s): I50.23 - Acute on chronic systolic (congestive) heart failure Plan Pleasant 89-year-old female with chronic diastolic heart failure. Clinically not in heart failure. Home blood pressure readings are in normal range. In the office blood pressure is little elevated. She is saying this happens quite frequently when she comes for office visits. Overall quite stable and I am not changing any medications currently. She is waiting on some imaging results as there is some concern for recurrent cancer. Follow-up 6 months. Thank you for allowing me to participate in the care of your patient. Please feel free to contact me if you have any questions. Coding Level of Care Code Est Pt Level 3 (19212) Diagnoses HTN (hypertension) I10 Acute on chronic systolic congestive heart failure I50.23 Heart failure chronicity: acute on chronic Heart failure type: systolic
--- OUTSIDE RECORDS SUMMARY | 2025-03-17 16:47 | XMS_ITS | Encounter Summary ---
Author Organization [facility], Address [address] [place] [address] Phone Care Team Providers Care Assembly Machine Offbearer Name Role Phone Araceli Ritchie NURSERY TECHNICIAN Primary Care Provider Unavailabl e Encounter Details Date Type Department Care Team (Late st Contact Info) Description 02/18/2023 Documentation Only [facility], - Diego Mcelroy [address] [place] [phone] Araceli Ritchie NP Social History Tobacco Use [...] on filedocumented in this encounter Care Teams Assembly Machine Offbearer Relationship Specialty Start Date End Date Araceli Ritchie NP PCP - General Nurse Practitioner 02/15/23 documented as of this encounter
--- OUTSIDE RECORDS SUMMARY | 2025-03-17 16:47 | XMS_ITS | Clinical Summary ---
Author Organization [facility] Address [address] [place] [address] Phone Care Team Providers Care Machine Cementer Name Role Phone Uri Houston MD Primary Care Provider [phone] Uri Houston MD Unavailable [phone] Paul Chowdhury MD Unavailable [phone] Yasmin Luna MD Unavailable Andry Morse MD Unavailable [phone] Henry Mckeon MD Unavailable Allergies Active Allergy Reactions Criticality Noted Date Comments Cimetidine Headaches Low 02/21/2017 Other reaction(s): headaches Hydrochlorothiazide Shortness Of Breath High 02/21/2017 Other reaction(s): muscle aches/ SOB Lisinopril Cough Low 02/21/2017 Other reaction(s): cough Other reaction(s): Unknown Phenytoin Rash Low 09/25/2019 Other reaction(s): Unknown Phenytoin Sodium Extended 02/21/2017 Other reaction(s): rash Medications ferrous sulfate 325 mg (65 mg elemental) tablet 1 tablet daily Active multivitamin per tablet 1 TABlet daily Active ascorbic acid, vitamin C, (VITAMIN C) 500 mg Chew Take 500 mg by mouth daily. Active cholecalciferol (VITAMIN D3) 2,000 unit capsuleIndications:mino min D deficiency Take 2,000 Units by mouth daily. Indications: low vitamin D levels Active TRELEGY ELLIPTA 100-62.5-25 mcg inhalation powder TAKE 1 PUFF INHALED DAILY FOR 30 DAYS 05/01/20 22 Active traZODone (DESYREL) 50 MG tablet Take 50 mg by mouth nightly at bedtime. 08/22/19 23 Active OXYGEN-AIR DELIVERY SYSTEMS MISC 2 L by Nasal route nightly at bedtime. 2l at night and and during day as needed Active NIFEdipine (ADALAT CC) 60 MG 24 hr tabletIndications:incre ased by Dr. Morse on 06/19/23 d/t elevated BP reading during cardio appt. Take 1 tablet by mouth 2 (two) times a day. Indications: increased by Dr. Morse on 06/19/23 d/t elevated BP reading during cardio appt. 06/19/20 23 Active docusate sodium (COLACE) 100 MG capsule Take 100 mg by mouth 2 (two) times a day. Active polyethylene glycol (MIRALAX) 17 gram/dose powder Take 17 g by mouth as needed. Active carvedilol (COREG) 3.125 MG tabletIndications:Essen tial hypertension take 1 tablet by mouth twice a day with meals 180 tablet 3 04/24/20 24 Active olmesartan (BENICAR) 40 mg tabletIndications:Essen tial hypertension TAKE 1 TABLET BY MOUTH EVERY DAY 90 tablet 3 08/31/19 25 Active simvastatin (ZOCOR) 40 MG tabletIndications:Pure hypercholesterolemia TAKE 1 TABLET BY MOUTH EVERYDAY AT BEDTIME 90 tablet 3 08/31/19 25 Active omeprazole (PRILOSEC) 40 MG capsuleIndications:Marcus roesophageal reflux disease without esophagitis TAKE 1 CAPSULE BY MOUTH EVERY DAY 90 capsule 3 11/28/19 25 Active levalbuterol (XOPENEX HFA) 45 mcg/actuation inhaler Inhale 2 puffs into the lungs every 6 (six) hours as needed for wheezing. Active Active Problems Problem Noted Date Diagnosed Date Adenocarcinoma of colon 03/19/2024 Overview (03/19/2024): Was seen 02/20/24 by Yasmin Luna MD Oncology [place]- stage 2 colon CA r/t in 3m Anemia 08/12/2017 Essential hypertension 08/12/2017 Gastroesophageal reflux disease 08/12/2017 Impaired fasting glucose 08/12/2017 Osteopenia of multiple sites 08/12/2017 Pure hypercholesterolemia 08/12/2017 Encounters Date Type Department Care Team Description 02/01/2025 Orders Only [facility] Internal Medicine [address] [facility] [place] [address] Sander Claros MD 01/25/2025 Telephone [facility] [address] [facility] [place] [address] Uri Houston MD 01/25/2025 Telephone [facility] [address] [facility] [place] [address] Destini Garcia, DAVON Results 01/21/2025 Telephone [facility] [address] [facility] [place] [address] Uri Houston MD Results 01/20/2025 Orders Only [facility] [address] [facility] [place] [address] Sander Claros MD 12/25/2024 3:00 PM EDT Office Visit [facility] [address] [facility] [place], [place] [address] Uri Houston MD Pneumonia of right middle lobe due to infectious organism (Primary Dx) 12/25/2024 Telephone [facility] [address] [facility] [place] [address] Uri Houston MD Verbal Orders 12/24/2024 Documentation [facility] [address] [facility] [place] [address] Uri Houston MD 12/24/2024 Orders Only [facility] [address] [facility] [place] [address] Sander Claros MD 12/24/2024 Telephone [facility] [address] [place] [address] Destini Garcia RN TCM Visit 12/18/2024 Orders Only [facility] Internal Medicine [address] [place] [address] Provider, MD Sander from Last 3 Months Immunizations Immunization Administration Dates Next Due COVID-19 (Pre-05/13) Pfizer Vaccine, mRNA, PF 05/01/2021,09/21/2020,08/31/2020 INFLUENZA, SPLIT VIRUS, TRIV ALENT W/ PRESERVATIVE IM 05/15/2014,05/01/2013,05/05/2012 Influenza High-Dose Quadriva lent Preservative Free IM 05/01/2023,05/04/2022 Influenza High-Dose Trivalen t Preservative Free IM 04/28/2024,04/05/2020,05/04/2019,05/02,05/11/2016,05/02/2015 Influenza Quadrivalent Adjuv anted Preservative Free IM 04/24/2021 Influenza Trivalent Adjuvant ed Preservative free IM 05/02/2018 Influenza, Unspecified Formulation 04/24/2021 Pneumococcal conjugate PCV13 12/23/2015 Pneumococcal conjugate PCV20 01/21/2024 Pneumococcal polysaccharide PPSV23 08/13/2014,,05/22/2004 RSV Vaccine (monovalent, adjuvanted) 04/09/2023 Td (adult) 5 Lf Tetanus Toxo id, PF, Adsorbed 09/20/2007 Tdap 06/15/2024 Zoster live 01/12/2014,09/29/2013 Zoster recombinant 09/02/2024,06/24/2024 Family History Medical History Relation Comments Colon cancer Father Macular degeneration Mother Pneumonia Mother Breast cancer Sister 1 Macular degeneration Sister 1 Bipolar disorder Sister 2 Hypertension Sister 2 Relation Status Comments Daughter 1 Alive Daughter 2 Alive Father (Age 74) at age 74 y/o d/t colon cancer Mother (Age 93) at age 93 d/t pneumonia Sister 1 Alive Sister 2 Alive Son Alive Social History Tobacco Use Types Packs/Day Years Used Date Smoking Tobacco: Former Cigarettes 2 35 1 957 - 1992 Smokeless Tobacco: Never Tobacco Cessation:Counseling Given: Not Answered Comments:quit 26 years ago Alcohol Use Standard Drinks/Week Comments No 0 (1 standard drink = 0.6 oz pur e alcohol) Child or Family Care Answer Date Record ed Do you have problems with on e of the following making it difficult for you to work, study, or receive health care? No 12/30/2020 Education Answer Date Recorded Are you interested in more education? Not on schuyler e 12/31/2022 Are you concerned about learning? Not on file 12/31/2022 No 12/31/2022 No 12/31/2022 Food Answer Date Recorded Within the past 6 months we worried whether our food would run out before we got money to buy more. Never True 12/30/2020 Within the past 6 months the food we bought just didn't last and we didn't have enough money to get more. Never True Residential Stability Answer Date Recor ded What is your housing situation today? I have ayde sing 12/30/2020 How many times have you move d in the past 12 months? Zero (I did not move) 12/30/2020 06 Are you worried that in t he next 2 months, you may not have your own housing to live in? No 12/30/2020 Paying for Meds Answer Date Recorded Do you have trouble paying for medicines? No 12/30/2020 Paying Utility Bills Answer Date Record ed Do you have trouble paying your heating or elect ricity bill? No 12/30/2020 Transportation Answer Date Recorded Has the lack of transportati on kept you from medical appointments or from getting medications? No 12/30/2020 Unemployment Answer Date Recorded Are you currently unemployed or working on a part-time or temporary basis, and looking for work? No 12/30/2020 Digital Access Answer Date Recorded No 12/12/2022 No 12/12/2022 Reliable internet access at home? Not on file 12/12/2022 Device with a working camera? Not on file Intimate Partner Violence Answer Date R ecorded Denied Basic Needs Not on file 09/29/2024 In the past 12 months have y ou been in a relationship with a person who hurts, threatens, or tries to control you? No 09/29/2024 Worried food would run out Not on file 09/29 In the past 12 months have y ou been in a relationship with a person who hurts, threatens, or tries to control you? No 09/29/2024 Comments No Sex and Gender Information Value Date Recorded Sex Assigned at Not on file Legal Sex Female 7:53 PM EST Gender Identity Not on file Sexual Orientation Not on file Last Filed Vital Signs Vital Sign Reading Time Taken Comments Blood Pressure 105/60 12/25/2024 3:29 PM EDT Pulse 65 12/25/2024 3:29 PM EDT on 2L o2 Temperature 36.9 C (98.5 F) 12/25/2024 3:29 PM EDT Respiratory Rate 20 12/25/2024 3:29 PM EDT Oxygen Saturation 95% 12/25/2024 3:29 PM EDT on 2L o2 Inhaled Oxygen Concentration - - Weight 56.5 kg (124 lb 9.6 oz) 12/25/2024 3:29 P M EDT Height 156 cm (5' 1.42 ) 12/25/2024 3:29 PM EDT Body Mass Index 23.22 12/25/2024 3:29 PM EDT Plan of Treatment Upcoming Encounters Date Type Department Care Team (Late st Contact Info) Description 04/05/2025 11:00 AM EDT Office Visit [facility] Internal Medicine [address] [place] [address] Uri Houston MD [address] [place] [address] 10/04/2025 11:00 AM EDT Office Visit [facility] Internal Medicine [address] [place] [address] Uri Houston MD [address] [place] [id number] Health Maintenance Due Date Last Done Comments COVID-19 VACCINE ( season) 2024 03/25/2024, 05/13/2023, 05/22/2022, Additional history exists DEPRESSION SCREENING 09/29/2025 09/29/2024 CREATININE LEVEL 12/18/2025 12/18/2024, , 04/20/2024, Additional history exists POTASSIUM LEVEL 12/18/2025 12/18/2024, 08/23, 04/20/2024, Additional history exists Adult Td,Tdap Booster 06/15/2034 06/15/2024, 008 OSTEOPOROSIS SCREENING INITIAL (ONE-TIME) Completed 12/08/2013 RSV VACCINE Completed 04/09/2023 PNEUMOCOCCAL VACCINES (50+ years) Completed 01/21/2024, 12/23/2015, 08/13/2014, Additional history exists ZOSTER VACCINES Completed 09/02/2024, 10/2023, 01/12/2014, Additional history exists HEPATITIS A VACCINES Aged Out No long er eligible based on patient's age to complete this topic HIB VACCINES Aged Out No longer eligi ble based on patient's age to complete this topic MENINGOCOCCAL VACCINES (ACWY) Aged Out No longer eligible based on patient's age to complete this topic MENINGOCOCCAL VACCINES (B) Aged Out N o longer eligible based on patient's age to complete this topic Medical Devices Not on file Procedures Procedure Name Priority Date/Time Associated Diagnosis Comments OUTSIDE XR CHEST REPORT ONLY Routine 01/18/2025 12:05 PM EDT OUTSIDE LAB Routine 01/18/2025 12:03 PM EDT OUTSIDE IMAGING Routine 01/18/2025 10:30 AM EDT XR CHEST Routine 12/25/2024 4:09 PM EDT Pneumonia of right middle lobe due to infectious organism OUTSIDE IMAGING Routine 12/18/2024 2:18 PM EDT OUTSIDE LAB Routine 12/18/2024 1:10 PM EDT OUTSIDE IMAGING Routine 12/18/2024 1:07 PM EDT OUTSIDE IMAGING Routine 12/18/2024 1:05 PM EDT OUTSIDE POTASSIUM LEVEL Routine 12/18/2024 OUTSIDE ALT LEVEL Routine 12/18/2024 OUTSIDE ALKALINE PHSOPHATASE LEVEL Routine 12/18/2024 OUTSIDE SERUM CREATININE LEVEL Routine 12/18/2024 OUTSIDE BONE DENSITY SCREENING Routine 12/08/2013 from Last 3 Months or Most Recently Relevant to Health Maintenance Results * Outside XR??Chest Report Only (01/18/2025 12:05 PM EDT) Result [facility] Provider IMG XR CHEST Final Res ult * Outside Lab (01/18/2025 12:03 PM EDT) Only the most recent of2 resultswithin the time period is included. Result [facility] LAB BLOOD ORDERABLES Gabi l Result * Outside Imaging Report Only (01/18/2025 10:30 AM EDT) Result [facility] Provider IMG XR CHEST Final Res ult * Outside Imaging Report Only (12/18/2024 2:18 PM EDT) Result [facility] Provider IMG XR CHEST Final Res ult * Outside Imaging Report Only (12/18/2024 1:07 PM EDT) Result [facility] Provider IMG XR CHEST Final Res ult * Outside Imaging Report Only (12/18/2024 1:05 PM EDT) Result [facility] Provider IMG XR CHEST Final Res ult * Outside Potassium Level (12/18/2024) Potassium level - External 4.8 3.4 - 5.0 mmol/L EXTERNAL NON-INTERFACED REF LAB Result [facility] LAB BLOOD ORDERABLES Gabi l Result EXTERNAL NON-INTERFACED REF LAB * Outside Serum Creatinine Level (12/18/2024) Creatinine, serum - External 1.05 0.8 - 1.3 mg/dL EXTERNAL NON-INTERFACED REF LAB Historical Provider MD LAB BLOOD ORDERABLES Gabi l Result Performing Organization Address City/[facility]/ZIP Co de Phone Number EXTERNAL NON-INTERFACED REF LAB * Outside ALT Level (12/18/2024) ALT - External 11 5 - 30 U/L EXTE RNAL NON-INTERFACED REF LAB Historical Provider MD LAB BLOOD ORDERABLES Gabi l Result Performing Organization Address City/[facility]/ZIP Co de Phone Number EXTERNAL NON-INTERFACED REF LAB * Outside Alkaline Phosphatase Level (12/18/2024) ALKALINE PHOSPHATE LEVEL - EXTERNAL 80 50 - 100 U/L EXTERNAL NON-INTERFACED REF LAB Result [facility] Provider MD LAB BLOOD ORDERABLES Gabi l Result Performing Organization Address [facility] de Phone Number EXTERNAL NON-INTERFACED REF LAB * OUTSIDE BONE DENSITY SCREENING (12/08/2013) BONE DENSITY SCREENING - EXTERNAL osteoporosis Result [facility] Historical Provider HEALTH MAINTENANCE Final Result from Last 3 Months or Most Recently Relevant to Health Maintenance Insurance [place] [id number] [facility] [employer] MEDICARE SUPPLEMENT MEDICARE PART A & B Member Subscriber Plan / Payer (Ef fective 2002-Present) Name:Dunia Dow Member ID:[id number] Relation to Subscriber:Self Name:Dunia Dow Subscriber ID:[id number] Payer ID:[id number] Group ID:Not on file Type:Medicare [facility] [address] [facility] [employer] MEDICARE SUPPLEMENT MEDICARE PART A & B MEDICARE PART A & B MEDICARE PART A & [place] [phone] MEDICARE PART A & B [employer] MEDICARE SUPPLEMENT MEDICARE PART A & B [employer] MEDICARE SUPPLEMENT MEDICARE PART A & B MEDICARE PART A & [place] [id number] Advance Directives For more information, please contact: [phone] (9AM - 5PM María/[facility], Saturday-Saturday) Documents on File Type Date Recorded Patient Prefinish Operator Expl romero STINSONST 03/11/2023 Molst form comp leted, signed 03/11/23 * DNR/DNI (No CPR/No Intubation) (Latest Code Status on File) Date Activated Date Inactivated Comments 03/11/2023 7:51 PM Question Answer Comments Code Status Confirmed With: Patient Code Status Communicated To: PCP Code Discussion Comments: pt does no wan t cpr, intubation,dialysisi or tube feedings Care Teams Machine Cementer Relationship Specialty Start Date End Date Uri Houston MD [address] [place] [address] PCP - General 05/09/17 Uri Houston MD [address] [place] [address] Insurance Assigned Provider 10/26/23 Paul Chowdhury MD [address] [place] [address] Drive [address] [place] [address] Gastroenterology 12/11/19 Yasmin Luna MD [address] [place] [address] Internal Medicine 12/11/19 Andry Morse MD [address] [facility] [place] [address] Hospitalist 07/25/20 Henry Mckeon MD [address] [place] [address] Dr [address] [place] [address] Cardiology 07/25/20 Additional Source Comments The information contained in this document represents components of the legal health record. It is not the complete legal health record.[facility]
--- OUTSIDE RECORDS SUMMARY | 2025-03-17 16:47 | XMS_ITS | Clinical Summary ---
Author Organization [facility], Address [address] [place] [address] [place] [address] Phone Care Team Providers Care Flexographic Press Helper Name Role Phone Araceli Ritchie HEAD OF SALES [employer]OM[employer]ION Primary Care Provider Unavailabl e Allergies Active [...] Date Last Done Comments Influenza Vaccine (#1) 2025 , 04/05/2020, 05/04/2019, Additional history exists Pneumococcal Vaccine: 50+ Years Completed 12/23/2015, 08/13/2014, 09/19/2008, Additional history exists Hepatitis B Vaccine Aged Out No longe r eligible based on patient's age to complete this topic Insurance Medicare [facility] Care Teams Flexographic Press Helper Relationship Specialty Start Date End Date Araceli Ritchie NP PCP - General Nurse Practitioner 02/15/23
--- OUTSIDE RECORDS SUMMARY | 2025-03-17 16:47 | XMS_ITS | Encounter Summary ---
Author Organization [facility], Address [address] [place] [address] Phone Care Team Providers Care Nutrition Aide Name Role Phone Araceli Ritchie DATA ENTRY ANALYST Primary Care Provider Unavailabl e Encounter Details Date Type Department Care Team (Late st Contact Info) Description 02/18/2023 Documentation Only [facility], - Diego Mcelroy [address] [place] [phone] Araceli Ritchie NP Social History Tobacco Use [...] on filedocumented in this encounter Care Teams Nutrition Aide Relationship Specialty Start Date End Date Araceli Ritchie NP PCP - General Nurse Practitioner 02/15/23 documented as of this encounter
--- OUTSIDE RECORDS SUMMARY | 2025-03-17 16:47 | XMS_ITS | Clinical Summary ---
Author Organization [facility] Address [address] [place] [address] Phone Care Team Providers Care Larry Operator Name Role Phone Uri Houston MD Primary Care Provider [phone] Allergies Active Allergy Reactions Criticality Noted Date Comments Phenytoin Sodium Extended 01/29/2025 Hydrochlorothiazide 01/29/2025 Lisinopril 01/29/2025 Cimetidine 01/29/2025 Medications carvediloL (COREG) 3.125 mg tablet Take 1 tablet (3.125 mg total) by mouth 2 (two) times a day with meals. Active ascorbic acid (VITAMIN C) 500 mg chewable tablet Chew 1 tablet (500 mg total) daily. Active cholecalciferol (VITAMIN D-3) 50 mcg (2,000 unit) capsule Take 1 capsule (2,000 Units total) by mouth daily. Active docusate sodium (COLACE) 100 mg capsule Take 1 capsule (100 mg total) by mouth 2 times daily. Active ferrous sulfate 325 mg (65 mg elemental iron) tablet Take 1 tablet (325 mg total) by mouth 1 (one) time each day. Active Trelegy Ellipta 100-62.5-25 mcg inhaler Inhale 1 puff (100 mcg total) by mouth 1 (one) time each day. Active levalbuterol (XOPENEX HFA) 45 mcg/actuation inhaler Inhale 2 puffs by mouth every 6 hours as needed. Active NIFEdipine CC (ADALAT CC) 60 mg 24 hr tablet Take 1 tablet (60 mg total) by mouth 2 (two) times a day. Active olmesartan (BENICAR) 40 mg tablet Take 1 tablet (40 mg total) by mouth 1 (one) time each day. Active omeprazole (PriLOSEC) [address] capsule Take 1 capsule (40 mg total) by mouth daily. 11/27/2024 Active simvastatin (ZOCOR) 40 mg tablet Take 1 tablet (40 mg total) by mouth at bedtime. Active traZODone (DESYREL) 50 mg tablet 1 tablet (50 mg total) at bedtime. Active polyethylene glycol (PEG) 17 gram/dose oral powder Take 17 g by mouth once daily as needed. Active Encounters Date Type Department Care Team Description 03/04/2025 12:55 PM EDT - 03/04/2025 11:59 PM EDT Hospital Encounter [facility] Radiation Oncology [address] [place] [phone] Annette Kuo, GIULIANA Cancer of middle lobe of lung (CMS/HCC V24, CMS/HCC V28) (Primary Dx) Discharge Disposition: Home or Self Care 02/02/2025 10:27 AM EDT - 02/02/2025 11:59 PM EDT Hospital Encounter [facility] PET Scan [address] [place] [address] Cancer of middle lobe of lung (CMS/HCC V24, CMS/HCC V28) Discharge Disposition: Home or Self Care 01/29/2025 1:21 PM EDT - 01/29/2025 11:59 PM EDT Hospital Encounter [facility] Radiation Oncology [address] [place] [phone] Annette Kuo, GIULIANA Cancer of middle lobe of lung (CMS/HCC V24, CMS/HCC V28) (Primary Dx) Discharge Disposition: Home or Self Care 01/25/2025 12:52 PM EDT - 01/25/2025 11:59 PM EDT Hospital Encounter [facility] CT Scan [address] [place] [address] Malignant neoplasm of overlapping sites of right lung (CMS/HCC V24, CMS/HCC V28) Discharge Disposition: Home or Self Care from Last 3 Months Medical History Medical History Date Comments Carcinoma of colon (CMS/HCC V24, CMS/HCC V28) Chronic diastolic heart failure (CMS/HCC V24, CM S/HCC V28) COPD (chronic obstructive pulmonary disease) (CM S/[facility] V24, [facility] V28) GERD (gastroesophageal reflux disease) HTN (hypertension) Hypercholesteremia Insomnia Multinodular thyroid Rheumatic fever Subarachnoid bleed ([facility] V24, [facility] V28) Cancer of middle lobe of lung ([facility] V24, [facility]/ [facility] V28) Social History Tobacco Use Types Packs/Day Years Used Date Smoking Tobacco: Never Assessed Comments Unknown Sex and Gender Information Value Date Recorded Sex Assigned at Not on file Legal Sex Female 8:19 PM EST Gender Identity Not on file Sexual Orientation Not on file Obstetrics History Last Filed Vital Signs Vital Sign Reading Time Taken Comments Blood Pressure 110/62 03/04/2025 1:03 PM EDT Pulse 64 03/04/2025 1:03 PM EDT Temperature 36.6 C (97.9 F) 03/04/2025 1:03 PM EDT Respiratory Rate 16 03/04/2025 1:03 PM EDT Oxygen Saturation 93% 03/04/2025 1:03 PM EDT Inhaled Oxygen Concentration - - Weight 58.6 kg (129 lb 3.2 oz) 03/04/2025 1:03 P M EDT Height 154.9 cm (5' 1 ) 03/04/2025 1:03 PM EDT Body Mass Index 24.41 03/04/2025 1:03 PM EDT Plan of Treatment Upcoming Encounters Date Type Department Care Team (Late st Contact Info) Description 03/31/2025 2:00 PM EDT Appointment [facility] CT Scan [address] [place] [phone] 04/08/2025 3:00 PM EDT Appointment [facility] Radiation Oncology [address] [place] [phone] Mary Velazquez MD [address] [place] [address] Health Maintenance Due Date Last Done Comments Cholesterol Screening (Lipid Panel) 08/15/2023 Falls Risk Assessment 08/15/2023 Medicare Annual Wellness Visit 08/15/2023 Osteoporosis Screening (Bone Density Screening) 08/15/2023 Social Influencers of Health Screening 08/15/2023 Depression Screening 07/22/2024 COVID-19 Vaccine (7 - Pfizer risk season) 2024 03/25/2024, 05/13/2023, 05/22/2022, Additional history exists Hypertension/CHF/CAD Annual BMP Blood Test 02/16/2025 02/17/2024, 09/05/2023, 05/17/2023, Additional history exists Influenza Vaccine (#1) 2025 , 05/01/2023, 05/04/2022, Additional history exists DTaP,Tdap,and Td Vaccines (3 - Td or Tdap) 06/15/2034 06/15/2024, 09/20/2007 RSV Immunization Adult Patients Completed 04/09/2023 Pneumococcal Vaccine: 50+ Years Completed 01/21/2024, 12/23/2015, 08/13/2014, Additional history exists Zoster Vaccines Completed 09/02/2024, 1210/2023, 01/12/2014, Additional history exists HIB Vaccines Aged Out No longer eligi [...] to complete this topic RSV Immunization Patients Under 20 months Aged Out No longer eligible based on patient's age to complete this topic Varicella Vaccines Aged Out No longer eligible based on patient's age to complete this topic Procedures Procedure Name Priority Date/Time Associated Diagnosis Comments PET CT SKULL TO MID THIGH SUBSEQUENT Routine 02/02/2025 12:45 PM EDT Cancer of middle lobe of lung (CMS/HCC V24, CMS/HCC V28) CT CHEST WO CONTRAST Routine 01/25/2025 1:15 PM EDT Malignant neoplasm of overlapping sites of right lung (CMS/HCC V24, CMS/HCC V28) from Last 3 Months Results * PET CT Skull to Mid Thigh Subsequent (02/02/2025 12:45 PM EDT) Anatomical Region Laterality Modality Body Radiographic Antonia ging 02/04/2025 8:38 AM EDT Impressions 02/04/2025 10:36 AM EDT 1. Indeterminant FDG activity in the right middle lobe at site of prior radiation therapy. Underlying recurrence or new malignancy in this area is not excluded. 2. Indeterminate 8 mm nodule/opacity along the right major fissure at the level of the lower lobe demonstrating mild nonspecific FDG activity. This may be postinfectious/postinflammatory in etiology or represent underlying malignancy. 3. Mild nonspecific right hilar activity. Please note: The CT was acquired at a low radiation dose settings. The images are of nondiagnostic quality and used solely for purposes of attenuation correction and slice localization for the PET scan. If a diagnostic CT study is desired it must be ordered separately. -------- FINAL REPORT -------- Dictated By: Michela Velasquez Dictated Date: 02/04/2025 08:38 ET Assigned Physician: Michela Velasquez Reviewed and Electronically Signed By: Michela Velasquez Signed Date: 02/04/2025 10:36 ET Workstation ID: [id number] Transcribed By: Self Edit Transcribed Date: 02/04/2025 09:57 ET Narrative 02/04/2025 10:36 AM EDT INDICATION: History of lung cancer treated with radiation. Changes on 01/25/2025 CT - please compare.. According to the electronic medical history, the patient also has history of colon cancer with resection in 2002. TECHNIQUE: FDG PET-CT imaging was performed from the skull bases through the thighs in a single acquisition with data set reconstructed in axial, coronal, and sagittal planes at the computer workstation with fused data from both the PET imaging study and attenuation correction CT. The CT portion of the examination was done strictly for attenuation correction and is not a true diagnostic CT examination. DLP: 367 mGy-cm Radiopharmaceutical: 12.0 mCi of F-18 FDG IV. Blood glucose: 89 mg/dl. COMPARISON: Correlation is made with multiple prior chest CTs-the most recent dated January [address] of the abdomen and pelvis July 2023. FINDINGS: HEAD AND NECK: No abnormal FDG activity. Heterogeneous thyroid gland with multiple small nodules with asymmetric focal FDG activity in the medial left thyroid lobe SUV max 2.3 (background thyroid activity SUV max 1.7. THORAX: Consolidation in the right middle lobe with focal area of superimposed uptake SUV max 3; slightly increased from background. 8 mm nodule/opacity along the right lower lobe lung base near the major fissure SUV max 2.3. Scattered sub-5 mm nodules as well as tree-in-bud opacities measuring up to SUV Max 1.5. Mild right hilar activity SUV max 2.8. Mediastinal lymph nodes without significant FDG activity. For example, right paratracheal and subcarinal lymph nodes SUV max 2.3 (mediastinal blood pool SUV Max 2.5). Enlargement of the pulmonary trunk measuring 4.1 cm which may represent pulmonary arterial hypertension. Thoracic aortic and coronary artery calcifications. Trace pericardial effusion. Emphysematous changes. Small hiatal hernia. ABDOMEN/PELVIS: No abnormal FDG activity. Nonspecific bowel activity. Diverticulosis. MUSCULOSKELETAL: No abnormal FDG activity. Procedure Note Michela Velasquez MD - 02/04/2025 INDICATION: History of lung cancer treated with radiation. Changes on01/25/2025 CT - please compare.. According to the electronic medicalhistory, the patient also has history of colon cancer with resection [id number]. TECHNIQUE: FDG PET-CT imaging was performed from the skull bases throughthe thighs in a single acquisition with data set reconstructed in axial,coronal, and sagittal planes at the computer workstation with fused datafrom both the PET imaging study and attenuation correction CT. The CTportion of the examination was done strictly for attenuation correctionand is not a true diagnostic CT examination. DLP: 367 mGy-cm Radiopharmaceutical: 12.0 mCi of F-18 FDG IV. Blood glucose: 89 mg/dl. COMPARISON: Correlation is made with multiple prior chest CTs-the mostrecent dated January [address] of the abdomen and pelvis July2023. FINDINGS: HEAD AND NECK: No abnormal FDG activity. Heterogeneous thyroid gland withmultiple small nodules with asymmetric focal FDG activity in the medialleft thyroid lobe SUV max 2.3 (background thyroid activity SUV max 1.7. THORAX: Consolidation in the right middle lobe with focal area ofsuperimposed uptake SUV max 3; slightly increased from background. 8 mmnodule/opacity along the right lower lobe lung base near the major fissureSUV max 2.3. Scattered sub-5 mm nodules as well as tree-in-bud opacities measuring upto SUV Max 1.5. Mild right hilar activity SUV max 2.8. Mediastinal lymph nodes withoutsignificant FDG activity. For example, right paratracheal and subcarinallymph nodes SUV max 2.3 (mediastinal blood pool SUV Max 2.5). Enlargement of the pulmonary trunk measuring 4.1 cm which may representpulmonary arterial hypertension. Thoracic aortic and coronary arterycalcifications. Trace pericardial effusion. Emphysematous changes.Small hiatal hernia. ABDOMEN/PELVIS: No abnormal FDG activity. Nonspecific bowel activity.Diverticulosis. MUSCULOSKELETAL: No abnormal FDG activity. IMPRESSION: 1. Indeterminant FDG activity in the right middle lobe at site of priorradiation therapy. Underlying recurrence or new malignancy in this areais not excluded. 2. Indeterminate 8 mm nodule/opacity along the right major fissure at thelevel of the lower lobe demonstrating mild nonspecific FDG activity. Thismay be postinfectious/postinflammatory in etiology or represent underlyingmalignancy. 3. Mild nonspecific right hilar activity. Please note: The CT was acquired at a low radiation dose settings. The images are ofnondiagnostic quality and used solely for purposes of attenuationcorrection and slice localization for the PET scan. If a diagnostic CTstudy is desired it must be ordered separately. -------- FINAL REPORT -------- Dictated By: Michela Velasquez Dictated Date: 02/04/2025 08:38 ET Assigned Physician: Michela Velasquez Reviewed and Electronically Signed By: Michela Velasquez Signed Date: 02/04/2025 10:36 ET Workstation ID: [id number] Transcribed By: Self Edit Transcribed Date: 02/04/2025 09:57 ET us Annette Kuo [employer] SAL[employer] REPRESENTATIVE IMG NM PROCEDURES Fin al Result * CT Chest wo Contrast (01/25/2025 1:15 PM EDT) Anatomical Region Laterality Modality Body Computed Tomogra phy 01/26/2025 10:5 4 AM EDT Impressions 01/26/2025 11:32 AM EDT There are nodular and consolidative changes in the right middle lobe presumably a combination of active or inactive disease and postradiation change. Overall the amount of surrounding density has increased. I cannot distinguish postradiation fibrosis from residual/recurrent active disease. Severe underlying chronic lung disease -------- FINAL REPORT -------- Dictated By: Juve Farrell Dictated Date: 01/26/2025 10:54 ET Assigned Physician: Juve Farrell Reviewed and Electronically Signed By: Juve Farrell Signed Date: 01/26/2025 11:32 ET Workstation ID: [id number] Transcribed By: Self Edit Transcribed Date: 01/26/2025 10:54 ET Narrative 01/26/2025 11:32 AM EDT EXAMINATION: CT CHEST WITHOUT CONTRAST CLINICAL INFORMATION: History of lung cancer treated with radiation. Tissue diagnosis was never obtained per patient desire for no biopsies. She was found to have metapneumovirus infection when she was at [facility] on this recent admission. She was discharged on Azithromycin 500 mg for 4 more days prednisone 40 mg a day for 4 days. 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 She had a CT in 2022 that showed a right sided pulmonary nodule 1.9cm. It was a PET avid nodule. They couldn't biopsy her nodule. It was getting bigger she opted to get radiation to it. She is followed by radiation oncology. COMPARISON: Portions of previous CT 01/10/24 TECHNIQUE: Multidetector CT. Examination of the chest. Examination of the chest without IV contrast. Reformatting in the coronal and sagittal planes. DLP: 275 mGy-cm Dose optimization was performed including the use of low-dose iterative reconstruction technique with automatic exposure control based on patient size. Type of contrast: None Volume of IV contrast: None Volume of contrast discarded: 0 mL FINDINGS: LUNG: No abnormality of the trachea or mainstem bronchi. There is an abnormality in the central aspect of the right middle lobe. This occupies an area where there was a nodule on 04/23/23. The round solid nodule demonstrated 04/23/23 measured 1.2 cm (4/116). This area has become less well-defined and is surrounded by abnormal density. Best estimated of the original rounded abnormality 1.0 cm (4/129) The confluent somewhat triangular opacity with surrounding airspace disease could reflect changes from S/P RT. The overall abnormality which is associated with some bronchiolectasis is approximately 2.9 x 1.8 cm (4/128). The solid area of consolidation and lung disease has increased when compared to 01/10/24 and 08/19/23. There are multiple nodules and areas of bronchiolectasis in the medial segment of the middle lobe. The largest nodule in this area is 0.4 cm (4/150). This appears unchanged. There is some bronchiolectasis in the inferior lingula. Severe underlying centrilobular emphysema. MEDIASTINUM: Heterogeneous thyroid. No measurably enlarged mediastinal or hilar lymph nodes. CARDIAC: The heart is not enlarged. No pericardial fluid or thickening CORONARY CALCIFICATION: There are mild coronary calcifications. VASCULAR: There is no thoracic aortic aneurysm. The central biliary arteries are dilated. PLEURA: There is no pleural fluid or pneumothorax AXILLA/CHEST WALL: There are no enlarged axillary lymph nodes. No chest wall mass demonstrated VISUALIZED UPPER ABDOMEN: No suspicious abnormality on limited assessment of the visualized upper abdomen. Unchanged probable cyst posterior aspect of hepatic segment 6. MUSCULOSKELETAL: No suspicious focal bony lesion. Procedure Note Juve Farrell MD - 01/26/2025 EXAMINATION: CT CHEST WITHOUT CONTRAST CLINICAL INFORMATION: History of lung cancer treated with radiation. Tissue diagnosis was neverobtained per patient desire for no biopsies. She was found to havemetapneumovirus infection when [place] [facility] [place] [facility]. She was discharged on Azithromycin 500 mg for 4 more daysprednisone 40 mg a day for 4 days. 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 Shehad a CT in 2022 that showed a right sided pulmonary nodule 1.9cm. It wasa PET avid nodule. They couldn't biopsy her nodule. It was getting biggershe opted to get radiation to it. She is followed by radiation oncology. COMPARISON: Portions of previous CT 01/10/24 TECHNIQUE: Multidetector CT. Examination of the chest. Examination of the chest without IV contrast. Reformatting in the coronal and sagittal planes. DLP: 275 mGy-cm Dose optimization was performed including the use of low-dose iterativereconstruction technique with automatic exposure control based on patientsize. Type of contrast: None Volume of IV contrast: None Volume of contrast discarded: 0 mL FINDINGS: LUNG: No abnormality of the trachea or mainstem bronchi. There is an abnormality in the central aspect of the right middle lobe.This occupies an area where there was a nodule on 04/23/23. The round solidnodule demonstrated 04/23/23 measured 1.2 cm (4/116). This area has becomeless well-defined and is surrounded by abnormal density. Best estimated ofthe original rounded abnormality 1.0 cm (4/129) The confluent somewhat triangular opacity with surrounding airspacedisease could reflect changes from S/P RT. The overall abnormality whichis associated with some bronchiolectasis is approximately 2.9 x 1.8 cm(4/128). The solid area of consolidation and lung disease has increasedwhen compared to 01/10/24 and 08/19/23. There are multiple nodules and areas of bronchiolectasis in the medialsegment of the middle lobe. The largest nodule in this area is 0.4 cm(4/150). This appears unchanged. There is some bronchiolectasis in theinferior lingula. Severe underlying centrilobular emphysema. MEDIASTINUM: Heterogeneous thyroid. No measurably enlarged mediastinal orhilar lymph nodes. CARDIAC: The heart is not enlarged. No pericardial fluid or thickening CORONARY CALCIFICATION: There are mild coronary calcifications. VASCULAR: There is no thoracic aortic aneurysm. The central biliaryarteries are dilated. PLEURA: There is no pleural fluid or pneumothorax AXILLA/CHEST WALL: There are no enlarged axillary lymph nodes. No chestwall mass demonstrated VISUALIZED UPPER ABDOMEN: No suspicious abnormality on limited assessmentof the visualized upper abdomen. Unchanged probable cyst posterior aspectof hepatic segment 6. MUSCULOSKELETAL: No suspicious focal bony lesion. IMPRESSION: There are nodular and consolidative changes in the right middle lobepresumably a combination of active or inactive disease and postradiationchange. Overall the amount of surrounding density has increased. I cannotdistinguish postradiation fibrosis from residual/recurrent activedisease. Severe underlying chronic lung disease -------- FINAL REPORT -------- Dictated By: Juve Farrell Dictated Date: 01/26/2025 10:54 ET Assigned Physician: Juve Farrell Reviewed and Electronically Signed By: Juve Farrell Signed Date: 01/26/2025 11:32 ET Workstation ID: [id number] Transcribed By: Self Edit Transcribed Date: 01/26/2025 10:54 ET us Annette Kuo [employer] REPRESENTATIVE IMG CT PROCEDURES Fin al Result from Last 3 Months Insurance MEDICARE [facility] Care Teams Larry Operator Relationship Specialty Start Date End Date Uri Houston MD [address] [place] [address] PCP - General Internal Medicine 01/16/25
== END 2025-03-17 16:37 | disposition home or self-care (01) ==
LOC: HO.HCS 15:38
PROVIDERS: PCP Internal Medicine; Visit Provider Internal Medicine Cardiovascular Disease
DX: I10 Essential (primary) hypertension (principal); I50.23 Acute on chronic systolic (congestive) heart failure
CPT/HCPCS: 99213

== ENCOUNTER → 2025-03-17 15:37 | Outpatient (BNVA) | payer MEDICARE, OTHER, SELFPAY | PROVIDERS: PCP Internal Medicine; Visit Provider Internal Medicine Cardiovascular Disease | DX: I11.0 Hypertensive heart disease with heart failure (principal); I50.23 Acute on chronic systolic (congestive) heart failure | CPT/HCPCS: 99212 ==

== ENCOUNTER 2025-05-05 11:00 | Outpatient (AMB) | payer MEDICARE, OTHER, SELFPAY ==
--- NOTE | 2025-05-05 11:09 | A.OFFVIS_ITS ---
Vital Signs 05/05/25 11:10 Height 5 ft 1 in Weight 131 lb 2.801 oz BMI 24.8 BP 130/52 L Blood Pressure Location Lt brachial Position Sitting Pulse 63 Pulse Source Pulse Oximeter Pulse Oximetry (%) 96 Oxygen Delivery Method Nasal Cannula Oxygen Flow Rate 2 Intake Visit Reasons: COPD Assurance Associate Required: No Accompanied by: Self / Same As Patient Allergies cimetidine (From TAGAMET) Allergy (Mild, Verified 05/05/25 11:13) HEADACHES lisinopril (LISINOPRIL) Allergy (Mild, Verified 05/05/25 11:13) COUGH phenytoin (Dilantin) Allergy (Unknown, Verified 05/05/25 11:13) rash hydrochlorothiazide Adverse Reaction (Verified 05/05/25 11:13) Shortness of Breath HPI Comments Details: The patient is an 89-year-old woman with a known history of colon cancer status post resection many years ago, chronic anemia currently on Procrit and congestive heart failure. She had been complaining of worsening shortness of breath. Further workup included a chest x-ray demonstrating some interstitial abnormalities. Therefore she was referred to undergo a CT scan of the chest. The CT scan demonstrated some nodular densities in therefore she was referred to Pulmonary. I personally reviewed the CT scan myself. She does have evidence of bronchitis in addition to this elongated tubular density in the right middle lobe area. In the ED may be within the airway itself. The patient also did have a CT scan of the chest back in 2019 which I also personally reviewed. Unfortunately, technique was suboptimal and there was a lot of motion artifact. But it appears that the nodular density may have been there she is unclear as far as the size in the size. We talked about other potential etiologies that this could be such as mucous plugging smoldering infections. The patient be provided with an Acapella valve and she is going to work on chest physical therapy. Will try to also get a sputum culture for AFB to rule out non tuberculosis mycobacterial infections that can cause Nodular densities in the lungs. The patient continue perform her chest PT and will plan to repeat the CT scan in March with the hope that the nodular density has subsided. edure. She continues use the oxygen with good effect. She continues use her respiratory therapy, Trelegy with good effect as well. She has not required her rescue inhaler. 08/22/2022 the patient is here for pulmonary follow-up visit. She is still on a hard time with the issue with the biopsy. She did undergo the biopsy and demonstrated no evidence of any malignancy which is reassuring. Although it did have some atypical cells suggestive of reactive macrophages. Although malignancy cannot completely be ruled out with CT guided biopsies. The only definitive way of doing it will be with surgical biopsy. Unfortunately, her PFTs demonstrate a severe decrease in the DLCO in any kind of lung resection would be difficult for the patient to tolerate. She is already on oxygen. Clinically the patient is doing okay from a breathing standpoint. She continues her respiratory therapy. I do agree that repeating her CT scan in 6 weeks will be important to make sure that we follow this pulmonary nodule that was positive in her PET scan. If the nodules any larger and is progressing then we will discuss considering another CT-guided biopsy or talking to the radiation oncologist regarding possibility of stereotactic radiation. The patient is also having hard time sleeping. We did talk about different agents to use. I do believe that trazodone will be effective in helping her sleep. She will try for now. 10/24/2022 the patient is here for a pulmonary follow-up visit. The patient had a recent CT scan of the chest to be which we personally reviewed. It appears that the right-sided pulmonary nodule is enlarging from 1.7 to 1.9 cm in size. This is concerning. We know that this is an avid nodule. At least based on the CT scan from April it was a solitary nodule without any evidence of any spread. Still because her lung capacity she cannot tolerate surgery. Her initial biopsy was nondiagnostic. She either needs to have a repeat biopsy undergo stereotactic radiation without a biopsy. Will go ahead and plan to perform a biopsy in addition to that will% or a tumor conference to see people feel compelled about avoiding biopsy in going right to stereotactic radiation. She does have an oncologist to follow her closely so therefore will have her involving that discussion as well. From a respiratory status the patient is doing well on the oxygen. She does have very limited pulmonary reserve. 01/21/2023 the patient is here for pulmonary follow-up visit. The patient did complete her stereotactic radiation for her pulmonary nodule. She did tolerated therapy well. Although she has been having increasing shortness of breath. Apparently with activity. Moderate severity. She is using her oxygen. Patient is coughing more but denies any significant chest congestion. On examination she does have additional crackles on that left hemithorax. Therefore she is likely developing some radiation pneumonitis in that area. The patient is agreeable in taking a small dose of prednisone to try to minimize the inflammatory changes that occurs after having such therapy. 03/26/2023 the patient is here for pulmonary follow-up visit. Since we last spoke she developed worsening shortness of breath and weakness. She was evaluated at the [facility] ER where she had a chest x-ray demonstrating increased hazy opacity in the right mid lung zone. The patient was started on antibiotics. She was also given additional diuresis and prednisone. Her oxygen requirements improved and the patient was discharged. Now she is feeling better. She still recovering still feels tired. Her respiratory exam actually sounds better. no further evidence of crackles. She already completed the prednisone. The patient also followed up with Cardiology. She is continued on diuresis. She is monitoring her daily weight. She will undergo a chest x-ray today to follow-up for recent pneumonia. She will also need additional imaging studies follow-up with the pulmonary nodule that is status post stereotactic radiation. 09/26/2023 the patient is here for a pulmonary follow-up visit. She has been having worsening respiratory symptoms. Complains of shortness of breath even at rest. Moderate severity. Also complains of cough. Denies any chest pain. She was taken off her diuretic for an unclear reason. In the meantime the patient does demonstrating increasing shortness of breath along with lower extremity edema. We did review her CT scan of the chest from [facility] demonstrating masslike consolidation. She was treated for pneumonia. Will go ahead and give her additional antibiotics at this time because she feels that she is coughing more. Will plan to repeat the CT scan in 6-8 weeks to make sure that there is resolution of the airspace disease. Although it still malignancy is in the differential. She has been using the oxygen with good effect. Although she states that she has been having to use the oxygen more often. 11/06/2024 the patient is here for a pulmonary follow-up visit. Overall, doing well from a respiratory status. She continues use her oxygen regularly. She will be having a repeat CT scan of the chest soon at [facility]. She has areas of reticulation suggesting some underlying interstitial lung disease. In part this could have been the result of the radiation therapy. But is minimal and the patient is doing okay. She is having to use the oxygen more often but she understands that is due to the increased scarring of the lung. Therefore, she will continue using current respiratory therapy. The patient will follow-up with [facility] Oncology radiation. I believe she is scheduled to have another CT scan done there. Will follow-up in 6 months or sooner if any worsening issues arise. 05/05/2025 the patient is here for a pulmonary follow-up visit. Overall the patient has been doing well. She continues use her oxygen with good effect. She does have a pulse device conserving device for portability outside of the home. She continues use her respiratory medications as prescribed. She did follow-up with Oncology and Radiation Oncology at [facility]. There was a question of a new nodular density and she underwent a PET scan and subsequently a CAT scan afterwards. She was told that there was not anything of any concern and she did not need any other intervention at this time. She does have a scheduled CAT scan for 9 months from now. Will try to get those images in the meantime. Otherwise the patient is doing well from a respiratory status. She is going to increase her exercise capacity and will monitor closely her nutrition status to make sure that she does not have any further weight loss. She will follow-up in 9 months after her CAT scan if she has any issues prior to this she can always call for an earlier assessment. [facility] Medical History Lung cancer (HFpEF) heart failure with preserved ejection fraction Osteopenia (~2001) History of colon cancer (~2002) Insomnia COPD (chronic obstructive pulmonary disease) Multinodular thyroid CHF (congestive heart failure) Rheumatic fever Subarachnoid bleed High cholesterol GERD (gastroesophageal reflux disease) HTN (hypertension) Surgical History History of bone marrow biopsy History of colonoscopy History of hemicolectomy History of tonsillectomy S/P thyroid biopsy History of lung biopsy History of appendectomy Family History Father Colon cancer Paternal Aunt Colon cancer Sister Breast cancer Social History Household Members: None Housing: House Are you a primary primary care provider to a significant other at home: No Do you presently have visiting nurse or other home services: No Alcohol intake: former Comment: sleeping Patient Tobacco Use Status: Former Tobacco user Years Smoked: 20 +/- Advance Directives Date on File: 08/20/22 service: No Current occupational status: retired Review of Systems Const Denies chills, Denies fatigue, Denies fever(s), Denies weight gain and Reports weight loss Eyes Denies blurry vision and Denies diplopia ENT Denies dizziness Card Denies chest pain, Denies leg edema, Denies lightheadedness, Denies palpitations, Denies dyspnea on exertion, Denies orthopnea and Denies other Resp Denies cough and Denies dyspnea on exertion GI Denies hematochezia and Denies change in stool character Musc Denies abnormal gait, Denies muscle weakness, Denies numbness, Denies radiating pain into limb and Denies tingling Skin/Breast Denies hirsutism and Denies alopecia Neuro Denies abnormal gait, Denies dizziness, Denies numbness and Denies tingling Psych Denies anxiety and Denies depression Endo Denies fatigue and Denies palpitations Masoud/Lymph Denies easy bruising Physical Exam Vital Signs: Last Vital Signs Pulse 63 05/05/25 11:10 BP 130/52 L 05/05/25 11:10 Pulse Ox 96 05/05/25 11:10 Oxygen Delivery Method Nasal Cannula 05/05/25 11:10 Oxygen Flow Rate 2 05/05/25 11:10 BMI result Body Mass Index 24.8 Const General: comfortable and alert Nutritional Appearance: underweight Orientation/consciousness: patient oriented x3 HEENT Head: Yes normocephalic Eyes General: appearance normal, both eyes and all related structures Neck Neck: Yes normal visual inspection Chest Chest palpation & inspection: normal inspection of the chest Resp Effort & Inspection: normal respiratory effort and not labored Auscultation: no crackles, no rales, no rhonchi, no wheezes and diminished lung sounds Cardio Rate: regular rate Rhythm: regular rhythm Heart sounds: S1 normal heart sound present and S2 normal heart sound present GI Auscultation: normal bowel sounds Skin General skin exam: no rashes or lesions noted Neuro General: patient oriented x3 Extrem General: Yes normal to inspection and No edema Assessment & Plan Assessment & Plan (1) Chronic bronchitis: Code(s): J42 - Unspecified chronic bronchitis Category: Medical Qualifiers: Chronic bronchitis type: simple Qualified Code(s): J41.0 - Simple chronic bronchitis (2) Shortness of breath: Code(s): R06.02 - Shortness of breath Category: Medical (3) COPD (chronic obstructive pulmonary disease): Code(s): J44.9 - Chronic obstructive pulmonary disease, unspecified Category: Medical Qualifiers: COPD type: chronic bronchitis Chronic bronchitis type: simple Qualified Code(s): J41.0 - Simple chronic bronchitis (4) Insomnia: Code(s): G47.00 - Insomnia, unspecified Category: Medical Qualifiers: Insomnia type: primary Qualified Code(s): F51.01 - Primary insomnia (5) CHF (congestive heart failure): Code(s): I50.9 - Heart failure, unspecified Category: Medical Qualifiers: Heart failure chronicity: acute on chronic Heart failure type: systolic Qualified Code(s): I50.23 - Acute on chronic systolic (congestive) heart failure (6) Lung cancer: Code(s): C34.90 - Malignant neoplasm of unspecified part of unspecified bronchus or lung Category: Medical Plan continue oxygen supplementation to keep pox 90-96%. B cylinders with 3l/pulse conserving valve continue Trelegy inhaler start xopenex HFa as needed Trazadone for sleep Serial CT chest by oncology F/U 6-8 months Coding Level of Care Code Est Pt Level 4 (03418) Complex EM visit Add On G2211 Diagnoses Simple chronic bronchitis J41.0 Chronic bronchitis type: simple Shortness of breath R06.02 Simple chronic bronchitis J41.0 COPD type: chronic bronchitis Chronic bronchitis type: simple Primary insomnia F51.01 Insomnia type: primary Acute on chronic systolic congestive heart failure I50.23 Heart failure chronicity: acute on chronic Heart failure type: systolic Lung cancer C34.90 Time Spent (min) 17
[2025-05-05 11:10] VITALS: BP 130/52; PULSE 63; O2SAT 96; BMI 24.8
--- OUTSIDE RECORDS SUMMARY | 2025-05-05 13:31 | XMS_ITS | Clinical Summary ---
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 08/22/19 Active OXYGEN-AIR DELIVERY SYSTEMS MISC 2 L by Nasal route nightly at bedtime. 2l at night and and during day as needed Active NIFEdipine (ADALAT CC) 60 MG 24 hr tabletIndications:incre ased by Dr. Morse on 06/19/23 d/t elevated BP reading during cardio appt. Take 1 tablet by mouth 2 (two) times a day. Indications: increased by Dr. Morse on 06/19/23 dt elevated BP reading during cardio appt. 06/19/20 Active docusate sodium (COLACE) 100 MG capsule Take 100 mg by mouth 2 (two) times a day. Active polyethylene glycol (MIRALAX) 17 gram/dose powder Take 17 g by mouth as needed. Active olmesartan (BENICAR) 40 mg tabletIndications:Essen tial [...] (six) hours as needed for wheezing. Active carvedilol (COREG) 3.125 MG tabletIndications:Essen tial hypertension TAKE 1 TABLET BY MOUTH TWICE A DAY WITH FOOD 180 tablet 3 03/19/20 25 Active Active Problems Problem Noted Date Diagnosed Date Stage 3a chronic kidney disease 04/05/2025 Adenocarcinoma of colon 03/19/2024 Overview (03/19/2024): Was seen 02/20/24 by Yasmin Luna MD Oncology Sophia- stage 2 colon CA r/t in 3m Anemia 08/12/2017 Essential hypertension 08/12/2017 Gastroesophageal reflux disease 08/12/2017 Impaired fasting glucose 08/12/2017 Osteopenia of multiple sites 08/12/2017 Pure hypercholesterolemia 08/12/2017 Encounters Date Type Department Care Team Description 04/05/2025 11:57 AM EDT - 04/05/2025 11:59 PM EDT Hospital Encounter [facility] [address] [place] [address] Uri Houston MD Discharge Disposition: Home or Self Care 04/05/2025 11:00 AM EDT Office Visit [facility] Internal Medicine [address] [facility] [place] [address] Uri Houston MD Essential hypertension (Primary Dx); Gastroesophageal reflux disease without esophagitis; Lung neoplasm; Impaired fasting glucose; Chronic obstructive pulmonary disease, unspecified COPD type; Stage 3a chronic kidney disease 04/02/2025 Documentation [facility] Internal Medicine [address] [facility] [place] [address] Uri Houston MD 03/19/2025 Refill [facility] Internal Medicine [address] [facility] [place] [address] Uri Houston MD Medication Refill from Last 3 Months Immunizations Immunization Administration Dates Next Due COVID-19 (Pre-05/13) Pfizer Vaccine, mRNA, PF 04/12/2025,05/01/2021,09/21/2020,08/31 INFLUENZA, SPLIT VIRUS, TRIV ALENT W/ PRESERVATIVE IM 05/15/2014,05/01/2013,05/05/2012 Influenza High-Dose Quadriva lent Preservative Free IM 05/01/2023,05/04/2022 Influenza High-Dose Trivalen t Preservative Free IM 04/28/2024,04/05/2020,05/04/2019,05/02,05/11/2016,05/02/2015 Influenza Quadrivalent Adjuv anted Preservative Free IM 04/24/2021 Influenza Trivalent Adjuvant ed Preservative free IM 05/02/2025,05/02/2018 Influenza, Unspecified Formulation 04/24/2021 Pneumococcal conjugate PCV13 [...] Smoking Tobacco: Former Cigarettes 2 35 1 887 - 1991 Smokeless Tobacco: Never Tobacco Cessation:Counseling Given: Not [...] Sign Reading Time Taken Comments Blood Pressure 140/74 04/05/2025 11:41 AM EDT Pulse 56 04/05/2025 11:08 AM EDT Temperature 35.9 C (96.6 F) 04/05/2025 11:08 AM EDT Respiratory Rate 16 04/05/2025 11:08 AM EDT Oxygen Saturation 97% 04/05/2025 11:08 AM EDT Inhaled Oxygen Concentration - - Weight 59.1 kg (130 lb 3.2 oz) 04/05/2025 11:08 AM EDT Height 156 cm (5' 1.42 ) 04/05/2025 11:08 AM EDT Body Mass Index 24.27 04/05/2025 11:08 AM EDT Plan of Treatment Upcoming Encounters Date Type Department Care Team (Late st Contact Info) Description 10/04/2025 11:00 AM EDT Office Visit [facility] Internal Medicine [address] [place], [place] [id number] Uri Houston MD [address] [place], [place] [phone] [email or web address] 12/27/2025 11:20 AM EDT Office Visit [facility] Internal Medicine [address] [place], [place] [phone] Laith Mcdaniel PA-C [address], [place] [phone] [email or web address] Health Maintenance Due Date Last Done Comments COVID-19 VACCINE ( season) 2025 04/12/2025, 04/12/2025, 03/25/2024, Additional history exists DEPRESSION SCREENING 09/29/2025 09/29/2024 CREATININE LEVEL 04/05/2026 04/05/2025, , 12/18/2024, Additional history exists POTASSIUM LEVEL 04/05/2026 04/05/2025, 12/22, 12/18/2024, Additional history exists Adult Td,Tdap Booster 06/15/2034 06/15/2024, 008 OSTEOPOROSIS SCREENING INITIAL (ONE-TIME) Completed 12/08/2013 RSV VACCINE Completed 04/09/2023 PNEUMOCOCCAL VACCINES (50+ years) Completed 01/21/2024, 12/23/2015, 08/13/2014, Additional history exists ZOSTER VACCINES Completed 09/02/2024, 10/2023, 01/12/2014, Additional history exists INFLUENZA VACCINE Completed 05/02/2025, , 05/01/2023, Additional history exists HEPATITIS A VACCINES Aged [...] Procedure Name Priority Date/Time Associated Diagnosis Comments COMPREHENSIVE METABOLIC PANEL Routine 04/05/2025 11:57 AM EDT Essential hypertension Lung neoplasm Chronic obstructive pulmonary disease, unspecified COPD type CBC AND DIFFERENTIAL Routine 04/05/2025 11:57 AM EDT Essential hypertension Lung neoplasm HEMOGLOBIN A1C Routine 04/05/2025 11:57 AM EDT Impaired fasting glucose OUTSIDE BONE DENSITY SCREENING Routine 12/08/2013 from Last 3 Months or Most Recently Relevant to Health Maintenance Results * (ABNORMAL) Comprehensive metabolic panel (04/05/2025 11:57 AM EDT) SODIUM 139 133 - 146 mmol/L [facility] POTASSIUM 4.3 3.3 - 5.1 mmol/L [facility] CHLORIDE 105 96 - 108 mmol/L [facility] CO2 21 21 - 35 mmol/L [facility] BUN 23(H) 6 - 19 mg/dL [facility] CREATININE 1.00 0.5 - 1.5 mg/dL [facility] GLUCOSE 95 70 - 99 mg/dL [facility] ALBUMIN 4.1 3.9 - 4.8 g/dL [facility] TOTAL PROTEIN 8.3(H) 6.5 - 8.0 g/dL [facility] CALCIUM 10.2 8.4 - 10.3 mg/dL [facility] ALKALINE PHOSPHATASE 76 39 - 117 U/L [facility] TOTAL BILIRUBIN 0.3 0.0 - 1.2 mg/dL [facility] AST 22 0 - 37 U/L [facility] ALT 12 0 - 40 U/L [facility] GLOBULIN 4.2 1 - 4.8 g/dL [facility] EGFR 55(L) >59 mL/min/1.7 3m2 [facility] Comment:Estimated glomerular filtration rate calculated using the CKD-EPI refit equation. ANION GAP 17 10 - 20 mmol/L [facility] Blood 04/05/2025 11:5 7 AM EDT 04/05/2025 12:06 PM EDT us Uri Houston MD LAB BLOOD ORDERABLES Final Re sult [facility] [address] [place] [address] * (ABNORMAL) CBC and differential (04/05/2025 11:57 AM EDT) WBC 6.53 4.00 - 11.00 K/uL [facility] RBC 4.00 4.00 - 5.20 M/uL [facility] HGB 12.8 12.0 - 16.0 g/dL [facility] HCT 39.6 36.0 - 46.0 % [facility] PLT 248 150 - 450 K/uL [facility] MCV 99.0 80.0 - 100.0 fL [facility] MCH 32.0(H) 27.0 - 31.0 pg [facility] MCHC 32.3 32.0 - 36.0 g/dL [facility] RDW 12.9 11.5 - 14.5 % [facility] MPV 9.8 8.4 - 12.0 fL [facility] NRBC 0.00 0.00 /100 WBCs [facility] ABSOLUTE NRBC 0.00 0.00 K/uL [facility] DIFF METHOD Auto [facility] NEUTS 68.9 48.0 - 76.0 % [facility] LYMPHS 8.7(L) 18.0 - 41.0 % [facility] MONOS 6.9 4.0 - 11.0 % [facility] EOS 13.8(H) 0.0 - 5.0 % [facility] BASOS 1.1 0.0 - 1.5 % [facility] Granulocytes, immature (%) 0.6 0.0 - 0.9 % [facility] ABSOLUTE NEUTS 4.50 1.92 - 7.60 K/uL [facility] ABSOLUTE LYMPHS 0.57(L) 0.72 - 4.10 K/uL [facility] ABSOLUTE MONOS 0.45 0.16 - 1.10 K/uL [facility] ABSOLUTE EOS 0.90(H) 0.00 - 0.50 K/uL [facility] ABSOLUTE BASOS 0.07 0.00 - 0.15 K/uL [facility] Granulocytes, immature 0.04 0.00 - 0.09 K/uL [facility] Blood 04/05/2025 11:5 7 AM EDT 04/05/2025 12:06 PM EDT Uri Houston MD LAB BLOOD ORDERABLES Final Re sult [address] [address] * Hemoglobin A1c (04/05/2025 11:57 AM EDT) HEMOGLOBIN A1C 5.5 4.3 - 5.8 % [facility] Blood 04/05/2025 11:5 7 AM EDT 04/05/2025 12:07 PM EDT Uri Houston MD LAB BLOOD ORDERABLES Final Re sult Performing Organization Address City/[facility]/ZIP Co de Phone Number [address] [address] * OUTSIDE BONE DENSITY SCREENING (12/08/2013) BONE DENSITY SCREENING - EXTERNAL osteoporosis Sander Claros MD HEALTH MAINTENANCE Final Result from Last 3 Months or Most Recently Relevant to Health Maintenance Insurance MEDICARE PART A & B [facility] MEDICARE SUPPLEMENT MEDICARE PART A & B [facility] [employer] MEDICARE SUPPLEMENT MEDICARE PART A & B MEDICARE PART A & B MEDICARE PART A & B [employer] MEDICARE SUPPLEMENT MEDICARE PART A & B [facility] [employer]ION MEDICARE SUPPLEMENT MEDICARE PART A & B [employer]ION MEDICARE SUPPLEMENT MEDICARE PART A & B MEDICARE PART A & B [employer] EXTENSION MEDICARE SUPPLEMENT ILEANA LOVE [phone] Advance Directives For more information, please contact: [phone] (9AM - 5PM [facility], Saturday-Saturday) Documents on File Type Date Recorded 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 03/11/2023 Molst form comp leted, signed 03/11/23 * DNR/DNI (No CPR/No Intubation) (Latest Code Status on File) Date Activated Date Inactivated Comments 03/11/2023 7:51 PM Question Answer Comments Code Status Confirmed With: Patient Code Status Communicated To: PCP Code Discussion Comments: pt does no wan t cpr, intubation,dialysisi or tube feedings Care Teams Mortgage Loan Closer Relationship Specialty Start Date End Date Uri Houston MD [address] [place] [address] [email or web address] PCP - General 05/09/17 Uri Houston MD [address] [place] [address] [email or web address] Insurance Assigned Provider 10/26/23 Paul Chowdhury MD [address] [place] [address] [address] [place] [id number] Gastroenterology 12/11/19 Yasmin Luna MD [address] [place] [address] Internal Medicine 12/11/19 Andry Morse MD [address] [facility] [place] [address] Hospitalist 07/25/20 Henry Mckeon MD [address] [place] [phone] Cardiology 07/25/20 Additional Source Comments The information contained in this document represents components of the legal health record. It is not the complete legal health record.[facility]
--- OUTSIDE RECORDS SUMMARY | 2025-05-05 13:31 | XMS_ITS | Clinical Summary ---
Author Organization [facility] Address [address] [place] [address] Phone Care Team Providers Care Medical Records Coder Name Role Phone Uri Houston MD Primary Care Provider [phone] Allergies Active Allergy Reactions Criticality Noted Date [...] by mouth once daily as needed. Active multivitamin tablet Take 1 tablet by mouth 1 (one) time each day. Active Encounters Date Type Department Care Team Description 04/08/2025 2:48 PM EDT - 04/08/2025 11:59 PM EDT Hospital Encounter [facility] Radiation Oncology [address] [place] [phone] Mary Velazquez MD Discharge Disposition: Home or Self Care 03/31/2025 1:49 PM EDT - 03/31/2025 11:59 PM EDT Hospital Encounter [facility] CT Scan [address] [place] [phone] Cancer of middle lobe of lung ([facility] V24, [facility] V28) Discharge Disposition: Home or Self Care 03/04/2025 12:55 PM EDT - 03/04/2025 11:59 PM EDT Hospital Encounter [facility] Radiation Oncology [address] [place] [phone] Annette Kuo, GIULIANA Cancer of middle lobe of lung ([facility]/HCC V24, [facility] V28) (Primary Dx) Discharge Disposition: Home or Self Care 02/02/2025 10:27 AM EDT - 02/02/2025 11:59 PM EDT Hospital Encounter [facility] PET Scan [address] [place] [phone] Cancer of middle lobe of lung ([facility]/HCC V24, [facility]/HCC V28) Discharge Disposition: Home or Self Care from Last 3 Months Medical History Medical History Date Comments Carcinoma of colon (CMS/HCC V24, CMS/HCC V28) Chronic diastolic heart failure (CMS/HCC V24, CM S/HCC V28) COPD (chronic obstructive pulmonary disease) ([facility] V24, [facility] V28) GERD (gastroesophageal reflux disease) HTN (hypertension) Hypercholesteremia Insomnia Multinodular thyroid Rheumatic fever Subarachnoid bleed ([facility] V24, [facility] V28) Cancer of middle lobe of lung ([facility] V24, [facility] V28) Social History Tobacco Use Types Packs/Day Years Used Date Smoking Tobacco: Never Assessed Comments Unknown Sex and Gender Information Value Date Recorded Sex Assigned at Not on file Legal Sex Female 8:19 PM EST Gender Identity Not on file Sexual Orientation Not on file Obstetrics History Last Filed Vital Signs Vital Sign Reading Time Taken Comments Blood Pressure 156/71 04/08/2025 3:05 PM EDT Pulse 52 04/08/2025 3:05 PM EDT Temperature 36 C (96.8 F) 04/08/2025 3:05 PM EDT Respiratory Rate 16 04/08/2025 3:05 PM EDT Oxygen Saturation 98% 04/08/2025 3:05 PM EDT Inhaled Oxygen Concentration - - Weight 59.6 kg (131 lb 6.4 oz) 04/08/2025 3:05 P M EDT Height 154.9 cm (5' 1 ) 03/04/2025 1:03 PM EDT Body Mass Index 24.83 03/04/2025 1:03 PM EDT Plan of Treatment Upcoming Encounters Date Type Department Care Team (Late st Contact Info) Description 12/30/2025 1:00 PM EDT Appointment [facility] Radiation Oncology [address] [place] [phone] Annette Kuo NP [address] [place] [address] Health Maintenance Due Date Last Done Comments Cholesterol Screening (Lipid Panel) 08/15/2023 Falls Risk Assessment 08/15/2023 Medicare Annual Wellness Visit 08/15/2023 Osteoporosis Screening (Bone Density Screening) 08/15/2023 Social Influencers of Health Screening 08/15/2023 Depression Screening 07/22/2024 COVID-19 Vaccine (7 - Pfizer risk season) 2025 03/25/2024, 05/13/2023, 05/22/2022, Additional history exists Influenza Vaccine (#1) 2025 , 05/01/2023, 05/04/2022, Additional history exists Hypertension/CHF/CAD Annual BMP Blood Test 04/05/2026 04/05/2025, 02/17/2024, 09/05/2023, Additional history exists DTaP,Tdap,and Td Vaccines (3 - Td or Tdap) 06/15/2034 06/15/2024, 09/20/2007 RSV Immunization Adult Patients Completed 04/09/2023 Pneumococcal Vaccine: 50+ Years Completed 01/21/2024, 12/23/2015, 08/13/2014, Additional history exists Zoster Vaccines Completed 09/02/2024, 10/2023, 01/12/2014, Additional history exists HIB Vaccines Aged [...] Procedure Name Priority Date/Time Associated Diagnosis Comments CT CHEST WO CONTRAST Routine 03/31/2025 2:09 PM EDT Cancer of middle lobe of lung ([facility]/HCC V24, [facility] V28) PET CT SKULL TO MID THIGH SUBSEQUENT Routine 02/02/2025 12:45 PM EDT Cancer of middle lobe of lung (CMS/HCC V24, CMS/HCC V28) from Last 3 Months Results * CT Chest wo Contrast (03/31/2025 2:09 PM EDT) Anatomical Region Laterality Modality Body Computed Tomogra phy 04/08/2025 8:17 AM EDT Impressions 04/08/2025 8:[address] appearance of the chest, with a stable irregular area of confluent opacity in the posterior right middle lobe which likely represents a site of treated primary malignancy. Stable bandlike soft tissue thickening extending from the area of confluent opacity along the fissures. -------- FINAL REPORT -------- Dictated By: Randall Sigala Dictated Date: 04/08/2025 08:17 ET Assigned Physician: Randall Sigala Reviewed and Electronically Signed By: Randall Sigala Signed Date: 04/08/2025 08:32 ET Workstation ID: [id number] Transcribed By: Self Edit Transcribed Date: 04/08/2025 08:17 ET Narrative 04/08/2025 8:32 AM EDT PROCEDURE: CT of the chest without intravenous contrast. TECHNIQUE: CT of the chest without intravenous contrast administration. Coronal and sagittal reformats and MIP reconstructions were created. Dose length product: 163 mGy-cm. HISTORY: History of lung cancer treated with radiation. Compare 01/25/2025 CT and PET 02/02/25 COMPARISON: 01/25/2025. PET CT 02/02/2025. FINDINGS: LUNGS/PLEURA: Small amount of aspirated debris in the trachea. Airways otherwise clear and normal in caliber. Moderate centrilobular emphysema. Stable irregular confluent opacity in the posterior right middle lobe. Bandlike soft tissue thickening emanating from this area along the fissures correlating with the area of radiotracer uptake noted on the comparison PET/CT is unchanged. Scattered areas of parenchymal scarring, with small areas of associated traction bronchiectasis in the right middle lobe and lingula. Scattered small pulmonary nodules are unchanged. The largest is a 5 mm right middle lobe nodule on series 3, image 148. Scattered calcified granulomas. No pleural effusion or pneumothorax. MEDIASTINUM/AL: Heterogeneous appearance of the thyroid gland with suggestion of small nodules; the thyroid could be better evaluated with ultrasound. No mediastinal mass or lymphadenopathy. No appreciable hilar lymphadenopathy on limited noncontrast evaluation. VASCULATURE: Mildly prominent central pulmonary arteries, which can be seen with pulmonary arterial hypertension. Extensive atherosclerotic calcifications of the aorta and great vessels. 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 CARDIAC: Normal heart size. Mild coronary artery calcification. CHEST WALL: No axillary or supraclavicular lymphadenopathy. LIMITED ABDOMEN: Stable cyst in the posterior right hepatic lobe. BONES: Degenerative changes of the spine. Procedure Note Randall Sigala MD - 04/08/2025 PROCEDURE: CT of the chest without intravenous contrast. TECHNIQUE: CT of the chest without intravenous contrast administration.Coronal and sagittal reformats and MIP reconstructions were created. Dose length product: 163 mGy-cm. HISTORY: History of lung cancer treated with radiation. Compare 01/25/2025T and PET 02/02/25 COMPARISON: 01/25/2025. PET CT 02/02/2025. FINDINGS: LUNGS/PLEURA: Small amount of aspirated debris in the trachea. Airwaysotherwise clear and normal in caliber. Moderate centrilobular emphysema.Stable irregular confluent opacity in the posterior right middle lobe.Bandlike soft tissue thickening emanating from this area along thefissures correlating with the area of radiotracer uptake noted on thecomparison PET/CT is unchanged. Scattered areas of parenchymal scarring,with small areas of associated traction bronchiectasis in the right middlelobe and lingula. Scattered small pulmonary nodules are unchanged. Thelargest is a 5 mm right middle lobe nodule on series 3, image 148.Scattered calcified granulomas. No pleural effusion or pneumothorax. MEDIASTINUM/AL: Heterogeneous appearance of the thyroid gland withsuggestion of small nodules; the thyroid could be better evaluated withultrasound. No mediastinal mass or lymphadenopathy. No appreciable hilarlymphadenopathy on limited noncontrast evaluation. VASCULATURE: Mildly prominent central pulmonary arteries, which can beseen with pulmonary arterial hypertension. Extensive atheroscleroticcalcifications of the aorta and great vessels. 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 CARDIAC: Normal heart size. Mild coronary artery calcification. CHEST WALL: No axillary or supraclavicular lymphadenopathy. LIMITED ABDOMEN: Stable cyst in the posterior right hepatic lobe. BONES: Degenerative changes of the spine. IMPRESSION: Unchanged CT appearance of the chest, with a stable irregular area ofconfluent opacity in the posterior right middle lobe which likelyrepresents a site of treated primary malignancy. Stable bandlike softtissue thickening extending from the area of confluent opacity along thefissures. -------- FINAL REPORT -------- Dictated By: Randall Sigala Dictated Date: 04/08/2025 08:17 ET Assigned Physician: Randall Sigala Reviewed and Electronically Signed By: Randall Sigala Signed Date: 04/08/2025 08:32 ET Workstation ID: [id number] Transcribed By: Self Edit Transcribed Date: 04/08/2025 08:17 ET us Annette Kuo CLERK SUPERVISOR IMG CT PROCEDURES Fin al Result * PET CT Skull to Mid Thigh [...] Velasquez Reviewed and Electronically Signed By: Michela Velasuqez Signed Date: 02/04/2025 10:36 ET Workstation ID: [id number] Transcribed By: Self Edit Transcribed Date: 02/04/2025 [...] has history of colon cancer with resection [id number]. TECHNIQUE: FDG PET-CT imaging was performed from [...] Signed Date: 02/04/2025 10:36 ET Workstation ID: [id number] Transcribed By: Self Edit Transcribed Date: 02/04/2025 09:57 ET us Annette Kuo CLERK SUPERVISOR IMG NM PROCEDURES Fin al Result from Last 3 Months Insurance MEDICARE [facility] Care Teams Medical Records Coder Relationship Specialty Start Date End Date Uri Houston MD [address] [place] [address] PCP - General Internal Medicine 01/16/25
== END 2025-05-05 11:42 | disposition home or self-care (01) ==
LOC: HO.HPS 11:01
PROVIDERS: PCP Internal Medicine; Visit Provider Hospitalist
DX: J41.0 Simple chronic bronchitis (principal); R06.02 Shortness of breath; F51.01 Primary insomnia; I50.23 Acute on chronic systolic (congestive) heart failure; C34.90 Malignant neoplasm of unspecified part of unspecified bronchus or lung
CPT/HCPCS: 99214; G2211

== ENCOUNTER → 2025-05-05 11:00 | Outpatient (BNVA) | payer MEDICARE, OTHER, SELFPAY | PROVIDERS: PCP Internal Medicine; Visit Provider Hospitalist | DX: J41.0 Simple chronic bronchitis (principal); F51.01 Primary insomnia; I50.23 Acute on chronic systolic (congestive) heart failure; Z87.891 Personal history of nicotine dependence; C34.90 Malignant neoplasm of unspecified part of unspecified bronchus or lung; Z99.81 Dependence on supplemental oxygen | CPT/HCPCS: 99212 ==